=== PATIENT | male | born 1960 | race African-American/Black ===

== ENCOUNTER → 2017-08-08 | Day surgery (SDC) | payer MEDICARE, MEDICAID ==
--- NOTE | 2017-08-08 15:53 | RADIOLOGY REPORT (SQ) ---
EXAM DESCRIPTION: U/S BIOPSY SUPERFIC LYMPH NODE COMPLETED DATE/TIME: 08/08/2017 2:53 pm REASON FOR STUDY: LOCALIZED SWELLING MASS AND LUMP, NECK R22.1 LOCALIZED SWELLING, MASS AND LUMP, N BARAK COMPARISON: Outside CT scan. TECHNIQUE: The procedure was discussed with the patient and the patient agreed to proceed. The patient was scanned and the area of interest in the left cervical soft tissues was localized. Th is correlates with the area of concern on prior imaging studies. This area was targeted for ultrasoun d-guided core biopsy. After sterile skin prep and 10 mL local lidocaine 1% for skin and deep tissue anesthesia, a 20 gauge coaxial biopsy needle was used to obtain several cores of tissue from the lesion. There were no imm ediate post-procedure complications. Pathology is pending LIMITATIONS: None. FINDINGS: Ultrasound-guided biopsy of the solid mass in the left cervical soft tissues. Pathology p ending at this time. IMPRESSION: ULTRASOUND-GUIDED CORE BIOPSY OF THE SOLID MASS IN THE LEFT CERVICAL SOFT TISSUES. PATH OLOGY PENDING AT THIS TIME. COMMENT: Patient medication list reviewed: Yes- Quality ID# [id number]:Eligible professional attests to doc umenting in the medical record they obtained, updated, or reviewed the patient's current medications. TECHNICAL DOCUMENTATION: JOB ID: [id number] [employer]- All Rights Reserved
== END ==
LOC: RAD 13:16
PROVIDERS: ATTEND Internal Medicine Geriatric Medicine
PROC: 07B23ZX Excision of Left Neck Lymphatic, Percutaneous Approach, Diagnostic (ICD-10-PCS; principal; 2017-08-08)
DX: C96.9 Malignant neoplasm of lymphoid, hematopoietic and related tissue, unspecified (principal)
CPT/HCPCS: 38505; 88305; 88313; 88341; 88342

== ENCOUNTER → 2017-08-20 | Outpatient (CLI) | payer MEDICARE, MEDICAID ==
--- NOTE | 2017-08-21 09:10 | RADIOLOGY REPORT (SQ) ---
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 RADIONUCLIDE AND DOSE: 10.9 mCi F18 FDG The route of agent administration: Intravenous FASTING BLOOD SUGAR: 62 mg/dl CONTRAST TYPE AND DOSE: No CT contrast given. TECHNIQUE: Blood glucose level was verified. Above dose of FDG was injected intravenously. 2-D seg mented attenuation correction images were obtained from the base of the skull to the midthighs. Nonc ontrast CT images were obtained for attenuation correction and fusion with emission images. CT image s were performed without oral or intravenous contrast and are not sensitive for parenchymal lesions. A series of overlapping emission PET images were obtained. Images reviewed and manipulated at [facility] work station by the radiologist. Images stored on PACS. LIMITATIONS: None. FINDINGS: HEAD AND NECK: Increased uptake near the left palatini tonsil 19.1 SUV. Subtle asymmetry here but no definable mass on noncontrast CT. Increased uptake 9.6 SUV within ipsilateral level 1 no de. Node measures roughly 1.7 cm in maximum diameter. CHEST: No areas of abnormal metabolic activity in the chest. ABDOMEN AND PELVIS: No areas of abnormal metabolic activity in the abdomen or pelvis. Expected physi ologic activity is present in the genitourinary system and bowel. PROXIMAL LOWER EXTREMITIES: No areas of abnormal metabolic activity in the soft tissues of the lower extremities. BONES: No abnormal metabolic activity in the visualized skeleton. ADDITIONAL CT FINDINGS: Gynecomastia. OTHER: No other significant findings. IMPRESSION: Hypermetabolic left palatini tonsil. Hypermetabolic level 1 ipsilateral node. TECHNICAL DOCUMENTATION: JOB ID: [id number]- All Rights Reserved
== END ==
LOC: RAD 18:03
PROVIDERS: ATTEND Internal Medicine Medical Oncology
DX: C34.90 Malignant neoplasm of unspecified part of unspecified bronchus or lung (principal)
CPT/HCPCS: 78815; A9552

== ENCOUNTER → 2017-08-24 | Outpatient (CLI) | payer MEDICARE, MEDICAID ==
--- NOTE | 2017-08-24 13:32 | RADIOLOGY REPORT (SQ) ---
EXAM DESCRIPTION: MRI ORBIT/FACIAL/NECK COMBO COMPLETED DATE/TIME: 08/24/2017 9:32 am REASON FOR STUDY: LOCALIZED SWELLING MASS AND LUMP (R22.0) R22.0 LOCALIZED SWELLING, MASS AND LUMP, HEAD COMPARISON: PET-CT 08/20/2017 CT cervical spine 03/20/2015 CT brain 03/20/2015 TECHNIQUE: Multiplanar multisequence imaging of the soft tissues of the neck performed without and w ith contrast. All images stored on PACS. MRI network applications specialist was present today, an additional MRA of the carotid bifurcations was perf ormed with the contrast bolus, at no additional charge. Source data and maximum intensity projected images for cervical MRA reviewed. CONTRAST TYPE AND DOSE: 20 mL Prohance. RENAL FUNCTION: GFR > 60. LIMITATIONS: None. FINDINGS: SKULL BASE: Intact. MAJOR SALIVARY GLANDS: No solid or cystic masses. No inflammatory changes. LYMPHADENOPATHY: A 2.8 cm AP x 1.5 cm transverse x 4.3 cm craniocaudad lymph node is present with het erogeneous contrast enhancement. This lymph node is in the left neck at the level of the mandibular angle, superficial to the internal carotid artery and internal jugular vein. This correlates with th e lymph node described on PET-CT 08/20/2017. MUCOSAL MASSES OR ASYMMETRY: On the T1 post contrasted images and T2 images, asymmetric abnormal thic kening of the mucosal space, along the superior aspect left pharyngeal tonsil is present. This invol ves a 3 cm craniocaudad by 2.2 cm AP by 0.7 cm transverse area, best shown on coronal T1 postcontrast series 12 image 8, and axial T2 images 11-14. This does extend into the lateral aspect of the soft palate. LARYNX/CORDS: No abnormal findings. VASCULAR STRUCTURES: MRI applications Specialists was present today. The contrast bolus for the rout ine T1 post contrasted images was processed as a MRA exam of the carotid bifurcations. This demonstr ates focal stenosis proximal right ICA at the carotid bifurcation causing about 50% diameter stenosis of the proximal right ICA. Left carotid bifurcation, bilateral cervical vertebral arteries are unre markable. Limited view of the [place] is unremarkable. LUNG APICES: Clear. BONES: There is diffuse degenerative disc change with posterior disc bulging and bony spurring causin g mild central canal narrowing at C5-6. THYROID: Normal size. No masses. PARANASAL SINUSES: Clear. OTHER: No other significant finding. IMPRESSION: Left tonsillar fossa asymmetric mucous membrane thickening and enhancement worrisome for primary mucosal tumor. This appears to extend into the lateral edge of the soft palate. This corre lates with PET-CT 08/20/2017. Heterogeneously enhancing 4.3 x 2.8 x 1.5 cm left upper cervical lymph node correlates with hypermeta bolic lymph node on PET-CT 08/20/2017. TECHNICAL DOCUMENTATION: JOB ID: [id number] [employer]- All Rights Reserved
== END ==
LOC: RAD 08:18
PROVIDERS: ATTEND Internal Medicine Medical Oncology
DX: R22.0 Localized swelling, mass and lump, head (principal)
CPT/HCPCS: 70543; A9576

== ENCOUNTER 2017-08-28 09:42 | Inpatient (IN) | payer MEDICARE, MEDICAID ==
--- NOTE | 2017-08-28 10:02 | ER Document Report ---
ED Seizure - General Chief Complaint: Probable Seizure Stated Complaint: POSSIBLE SEIZURE Time Seen by Provider: 08/28/17 10:02 Information source: Friend Notes: This is a 57-year-old -[place] male brought to the emergency department by POV for evaluation of possible seizure. Apparently patient has a hospice care transitions coordinator that comes and visits with him. Reported history of diabetes, HIV, alcoholism. Caregiver states that he decided to stop drinking approximately 3 days ago. Had a seizure this morning. The caregiver called the primary care doctor and wanted to get an appointment but the primary care clinic said it would probably be a good idea to go to the emergency department. Patient was loaded in the car after the seizure but the emergency department for evaluation. Shortly after arrival to the emergency department patient has seizure. Patient now postictal. Unable to complete review of systems at this time. - HPI Patient complains to provider of: First seizure - Unknown history of prior seizures - Related Data Allergies/Adverse Reactions: olive extract [[place]] Allergy (Verified 10/28/15 09:47) Past Medical History - General Information source: Friend - Social History Smoking Status: Former Smoker Frequency of alcohol use: Heavy - Reportedly drinks 3 40 ounces beers a day Family History: Reviewed & Not Pertinent Patient has suicidal ideation: No Patient has homicidal ideation: No - Past Medical History Cardiac Medical History: Reports: Hx Coronary Artery Disease, Hx Hypercholesterolemia, Hx Hypertension Denies: Hx Heart Attack Pulmonary Medical History: Reports: Hx Asthma Denies: Hx Tuberculosis Neurological Medical History: Reports: Hx Seizures - about a month ago/LOW BS. Denies: Hx Cerebrovascular Accident Endocrine Medical History: Reports: Hx Diabetes Mellitus Type 2 Renal/ Medical History: Denies: Hx Peritoneal Dialysis GI Medical History: Reports: Hx Hepatitis - HEP C,HIV+. Denies: Hx Hiatal Hernia, Hx Ulcer Musculoskeltal Medical History: Reports Hx Arthritis Infectious Medical History: Reports: Hx Hepatitis - HEP C,HIV+, Hx HIV Past Surgical History: Reports: Hx Cardiac Catheterization, Hx Cardiac Surgery - stent placement, Hx Coronary Stent, Hx Orthopedic Surgery - lumbar surgery. Denies: Hx Open Heart Surgery, Hx Pacemaker - Immunizations Hx Diphtheria, Pertussis, Tetanus Vaccination: Yes - one year per pt. Review of Systems - Review of Systems -: Yes ROS unobtainable due to patient's medical condition - Unable to obtain due to patient's postictal status Physical Exam - Vital signs Vitals: Temp Pulse Resp BP Pulse Ox 98.5 F 124 H 20 114/67 98 08/28/17 09:48 08/28/17 09:48 08/28/17 09:48 08/28/17 09:48 08/28/17 09:48 Interpretation: Normal, Tachycardic - Notes Notes: Patient obviously postictal at this time. - General General appearance: Appears well, Alert, Combative In distress: Moderate - HEENT Head: Normocephalic, Atraumatic Eyes: Normal Conjunctiva: Normal Cornea: Normal Extraocular movements intact: Yes Pupils: PERRL Mouth/Lips: Other - Small abrasion on bilateral lateral tongue - Respiratory Respiratory status: No respiratory distress Chest status: Nontender Breath sounds: Normal Chest palpation: Normal - Cardiovascular Rhythm: Regular, Tachycardia Heart sounds: Normal auscultation Murmur: No - Abdominal Inspection: Normal Distension: No distension Bowel sounds: Normal Tenderness: Nontender Organomegaly: No organomegaly - Back Back: Normal, Nontender - Extremities General upper extremity: Normal inspection, Nontender, Normal color, Normal ROM , Normal temperature General lower extremity: Normal inspection, Nontender, Normal color, Normal ROM , Normal temperature, Normal weight bearing. No: Gualberto's sign - Neurological Neuro grossly intact: Yes Cognition: Normal Orientation: AAOx4, Disoriented to person, Disoriented to place, Disoriented to time, Disoriented to events [place] Coma Scale Eye Opening: Spontaneous [place] Coma Scale Verbal: Confused [place] Coma Scale Motor: Obeys Commands [place] Coma Scale Total: 14 Speech: Normal Motor strength normal: LUE, RUE, LLE, RLE Sensory: Normal - Psychological Associated symptoms: Normal affect, Normal mood, Agitated - Skin Skin Temperature: Warm Skin Moisture: Dry Skin Color: Normal Course - Re-evaluation Re-evalutation: 08/28/17 11:32 Consulted the hospitalist for admission. Spoke with Dr. Lane. Will get MRI with contrast to rule out any ring-enhancing lesion is consistent with possible toxoplasmosis which would obviously be treated quite differently than alcohol withdrawal seizures. At this time though I favor this is likely due to alcohol withdrawal. Patient is resting comfortably at this time. Fluids is given have been given as well. If MRI is unremarkable will admit to the hospital at this time 08/28/17 13:44 MRI unremarkable. Will admit at this time. - Vital Signs Vital signs: Temp Pulse Resp BP Pulse Ox 98.5 F 124 H 19 103/72 97 08/28/17 09:48 08/28/17 09:48 08/28/17 11:46 08/28/17 11:46 08/28/17 11:46 - Laboratory Result Diagrams: 08/28/17 10:30 08/28/17 10:30 Laboratory results interpreted by me: 08/28/17 08/28/17 08/28/17 10:13 10:30 10:30 RBC 4.11 L MCV 98 H Seg Neutrophils % 39.1 L Monocytes % 17.3 H Carbon Dioxide 14 L Anion Gap 26 H Glucose 208 H POC Glucose 198 H Direct Bilirubin 0.7 H AST 121 H ALT 124 H Alkaline Phosphatase 136 H Total Protein 8.8 H - Diagnostic Test Radiology reviewed: Reports reviewed - CT head unremarkable for acute pathology Radiology results interpreted by me: 08/28/17 13:44 MRI brain unremarkable for acute pathology, CT head unremarkable - EKG Interpretation by Me EKG shows normal: [place], Intervals, QRS Complexes Rate: Tachycardia - Sinus tachycardia When compared to previous EKG there are: Previous EKG unavailable Discharge - Discharge Clinical Impression: Seizures, generalized convulsive
[2017-08-28] MEDS ORDERED: LORAZEPAM INJ 2 MG/1 ML VIAL IM ONE (10:20)
[2017-08-28] MEDS ORDERED: LORAZEPAM INJ 2 MG/1 ML VIAL IV ONE (10:26)
[2017-08-28 10:44] LABS: ABSOLUTE EOSINOPHILS # (AUTO) 0.2 10^3/uL (0.0-0.6); ABSOLUTE LYMPHOCYTES (AUTO) 2.1 10^3/uL (0.5-4.7); ABSOLUTE MONOCYTES (AUTO) 0.9 10^3/uL (0.1-1.4); BASOPHILS % (AUTO) 0.7 % (0-2); EOSINOPHILS % (AUTO) 3.1 % (0-6); HEMATOCRIT 40.3 % (37.9-51.0); HEMOGLOBIN 13.5 g/dL (13.5-17.0); HGB HCT DIFFERENCE 0.2; LYMPHOCYTES % (AUTO) 39.8 % (13-45); MEAN CORPUSCULAR HEMOGLOBIN 32.8 pg (27.0-33.4); MEAN CORPUSCULAR HGB CONC 33.4 g/dL (32.0-36.0); MEAN CORPUSCULAR VOLUME 98 fl (80-97); MONOCYTES % (AUTO) 17.3 % (3-13); RED BLOOD COUNT 4.11 10^6/uL (4.35-5.55); RED CELL DISTRIBUTION WIDTH 13.8 % (11.5-14.0); SEGMENTED NEUTROPHILS % (AUTO) 39.1 % (42-78); WHITE BLOOD COUNT 5.2 10^3/uL (4.0-10.5)
--- NOTE | 2017-08-28 10:59 | RADIOLOGY REPORT (SQ) ---
EXAM DESCRIPTION: CT HEAD WITHOUT COMPLETED DATE/TIME: 08/28/2017 10:48 am REASON FOR STUDY: new onset seizure COMPARISON: None. TECHNIQUE: Axial images acquired through the brain without intravenous contrast. Images reviewed wi th bone, brain and subdural windows. Images stored on PACS. All CT scanners at this facility use dose modulation, iterative reconstruction, and/or weight based d osing when appropriate to reduce radiation dose to as low as reasonably achievable (ALARA). [facility]: Dose Right [facility]: CareDose [facility]: Dose Right [facility]: Teradose 4D [facility]: Smart Delphix RADIATION DOSE: Up-to-date CT equipment and radiation dose reduction techniques were employed. CTDIv ol: 64.6 mGy. DLP: 1163 mGy-cm. mGy. LIMITATIONS: None. FINDINGS: VENTRICLES: Prominent ventricles secondary to involutional atrophy. CEREBRUM: No masses. No hemorrhage. No midline shift. No evidence for acute infarction. 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 Normal childs/white matter differentiation. No areas of low density in the white matter. There is mild cortical atrophy. CEREBELLUM: No masses. No hemorrhage. No alteration of density. No evidence for acute infarction. EXTRAAXIAL SPACES: No fluid collections. No masses. ORBITS AND GLOBE: No intra- or extraconal masses. Normal contour of globe without masses. CALVARIUM: No fracture. PARANASAL SINUSES: No fluid or mucosal thickening. SOFT TISSUES: No mass or hematoma. OTHER: No other significant finding. IMPRESSION: There are mild involutional changes of aging with an old right posterior parietal infarc tion. No acute abnormality is appreciated. EVIDENCE OF ACUTE STROKE: NO. COMMENT: Quality ID # [id number]: Final reports with documentation of one or more dose reduction techniques (e.g., Automated exposure control, adjustment of the mA and/or kV according to patient size, use of iterative reconstruction technique) TECHNICAL DOCUMENTATION: JOB ID: [id number] [employer]- All Rights Reserved
[2017-08-28 11:07] LABS: ALANINE AMINOTRANSFERASE 124 U/L (21-72); ALKALINE PHOSPHATASE 136 U/L (38-126); ASPARTATE AMINO TRANSFERASE 121 U/L (17-59); BILIRUBIN,DIRECT 0.7 mg/dL (0.0-0.4); BILIRUBIN,TOTAL 0.9 mg/dL (0.2-1.3); BLOOD UREA NITROGEN 10 mg/dL (7-20); CALCIUM 10.2 mg/dL (8.4-10.2); CREATINE KINASE 75 U/L (55-170); GLUCOSE 208 mg/dL (75-110); TOTAL PROTEIN 8.8 g/dL (6.3-8.2)
[2017-08-28 11:15] LABS: CARBON DIOXIDE 14 mmol/L (22-30); CHLORIDE 99 mmol/L (98-107); POTASSIUM 4.2 mmol/L (3.6-5.0); SODIUM 138.5 mmol/L (137-145)
[2017-08-28 11:17] LABS: ALCOHOL < 10 mg/dL (NONE DETECTED); ANION GAP 26 (5-19)
[2017-08-28] MEDS ORDERED: NORMAL SALINE 1000 ML 1,000 ML IV ONE (11:22)
[2017-08-28] MEDS ORDERED: THIAMINE HCL 100 MG in NORMAL SALINE 50 ML IV ONE (11:44)
--- NOTE | 2017-08-28 13:23 | EKG REPORT ---
SEVERITY:- BORDERLINE ECG - SINUS TACHYCARDIA : Confirmed by: Neel Burk MD 28-Aug-2017 13:22:31
--- NOTE | 2017-08-28 13:37 | RADIOLOGY REPORT (SQ) ---
EXAM DESCRIPTION: MRI HEAD COMBO COMPLETED DATE/TIME: 08/28/2017 1:17 pm REASON FOR STUDY: altered seizure, hx of HIV, COMPARISON: PET-CT 08/20/2017 MRI neck soft tissues 08/24/2017 CT brain 08/28/2017, 03/20/2015 TECHNIQUE: Multiplanar imaging includes noncontrasted T1, T2, FLAIR, diffusion with ADC map and post gadolinium contrast T1 sequences. Images stored on PACS. CONTRAST TYPE AND DOSE: 15 mL Multihance. RENAL FUNCTION: GFR > 60. LIMITATIONS: None. FINDINGS: ANATOMY: No developmental anomalies. Normal vascular flow voids. Pituitary fossa normal. CSF SPACES: Normal in size and contour. No hemorrhage. 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 No MR evidence of acute ischemic change, acute intracranial hemorrhage, mass effect, or midline shift . No abnormal contrast enhancement. POSTERIOR FOSSA: Moderate pontine chronic small vessel disease. Old infarcts in the right and left i nferior cerebellar hemispheres. No acute ischemic change, acute intracranial hemorrhage, mass effect , or midline shift. No abnormal contrast enhancement. DIFFUSION IMAGING: Negative for acute or subacute infarction. ORBITS: No masses. Globes normal. PARANASAL SINUSES: No fluid levels. Mucosa normal. OTHER: No other significant finding. IMPRESSION: No acute infarcts. No abnormal contrast enhancement of brain parenchyma or dura. Multiple old infarcts as above. EVIDENCE OF ACUTE STROKE: NO. TECHNICAL DOCUMENTATION: JOB ID: [id number] [employer]- All Rights Reserved
[2017-08-28] MEDS ORDERED: ONDANSETRON 4 MG TAB.RAPDIS PO PRN (14:27)
[2017-08-28] MEDS ORDERED: ACETAMINOPHEN 325 MG TABLET PO PRN (14:27)
[2017-08-28] MEDS ORDERED: LORAZEPAM INJ 2 MG/1 ML VIAL IV PRN (14:33)
[2017-08-28] MEDS ORDERED: NORMAL SALINE 1000 ML 1,000 ML IV PRN (14:43)
[2017-08-28] MEDS ORDERED: HYDROCODONE/ACETAMINOPHEN 5-325 MG TABLET PO PRN (14:44)
--- NOTE | 2017-08-28 14:59 | PDOC H&P ---
History of Present Illness Admission Date/PCP: 08/28/17 14:20 Patient complains of: Seizures History of Present Illness: RAE MONTEMAYOR is a 57 year old male sent to the emergency room with complaint of seizures. Patient states that seizures started last night. Patient states that his neighbor witnessed the seizure activity. Neighbor was not present to describe the type of seizures that patient was having. Patient reports that he stopped drinking alcohol last Monday. Patient reports that he has had seizures in the past. Patient states that he was not placed on any medicines for seizures. Patient denies chest pain shortness of breath or fever. Patient is only person at present to give history. Patient does not does not have any other complaints. Past Medical History Cardiac Medical History: Reports: Coronary Artery Disease, Hyperlipidema, Hypertension Denies: Myocardial Infarction Pulmonary Medical History: Reports: Asthma Denies: Tuberculosis Neurological Medical History: Reports: Seizures - about a month ago/LOW BS Endocrine Medical History: Reports: Diabetes Mellitus Type 2 GI Medical History: Reports: Hepatitis - HEP C,HIV+ Denies: Hiatal Hernia Musculoskeltal Medical History: Reports: Arthritis Hematology: Denies: Anemia, Sickle Cell Disease Infectious Medical History: Reports: HIV Past Surgical History Past Surgical History: Reports: Cardiac Catheterization, Coronary Stent, Orthopedic Surgery - lumbar surgery Denies: Pacemaker Social History Smoking Status: Former Smoker Hx Recreational Drug Use: No Hx Prescription Drug Abuse: No Family History Family History: Reviewed & Not Pertinent Parental Family History Reviewed: Yes Children Family History Reviewed: Yes Sibling(s) Family History Reviewed.: Yes Medication/Allergy Home Medications: Amlodipine Besylate [Norvasc 10 mg Tablet] 10 mg PO DAILY 08/28/17 Ascorbic Acid [Vitamin C 500 mg Tablet] 500 mg PO DAILY 08/28/17 Aspirin [Aspirin 81 mg Chewable Tablet] 81 mg PO DAILY 08/28/17 Atorvastatin Calcium [Lipitor 10 mg Tablet] 10 mg PO DAILY 08/28/17 Darunavir Ethanolate [Prezista] 600 mg PO BID 08/28/17 Etravirine [[place]el[place]] 200 mg PO BID 08/28/17 Gabapentin [Neurontin] 800 mg PO BID 08/28/17 Glimepiride [Amaryl 4 mg Tablet] 4 mg PO QAM 08/28/17 Hydrocodone/Acetaminophen [[place] 5-325 mg Tablet] 1 tab PO Q4HP PRN 08/28/17 Levocetirizine Dihydrochloride [Xyzal] 5 mg PO DAILY 08/28/17 Metformin HCl [Glucophage] 1,000 mg PO BIDBS 08/28/17 Metoprolol Succinate [Toprol XL 100 mg Tablet] 150 mg PO DAILY 08/28/17 Nitroglycerin [Nitrostat 0.4 mg (1/150 Gr) Tabs 25/Bottle] 1 tab SL Q5MP PRN 08/06 Paroxetine HCl [Paxil 20 mg Tablet] 20 mg PO DAILY 08/28/17 Raltegravir Potassium [Isentress 400 mg Tablet] 400 mg PO BID 08/28/17 Ritonavir [Norvir 100 mg Tablet] 100 mg PO BID 08/28/17 Valsartan [Diovan] 320 mg PO DAILY 08/28/17 Allergies/Adverse Reactions: olive extract [[place]] Allergy (Verified 10/28/15 09:47) Review of Systems Constitutional: ABSENT: chills, fever(s), headache(s), weight gain, weight loss Eyes: ABSENT: visual disturbances Ears: ABSENT: hearing changes Cardiovascular: ABSENT: chest pain, dyspnea on exertion, edema, orthropnea, palpitations Respiratory: ABSENT: cough, hemoptysis Gastrointestinal: ABSENT: abdominal pain, constipation, diarrhea, hematemesis, hematochezia, nausea, vomiting Genitourinary: ABSENT: dysuria, hematuria Musculoskeletal: ABSENT: joint swelling Integumentary: ABSENT: rash, wounds Neurological: PRESENT: other - Seizure activity Psychiatric: ABSENT: anxiety, depression, homidical ideation, suicidal ideation Endocrine: ABSENT: cold intolerance, heat intolerance, polydipsia, polyuria Hematologic/Lymphatic: ABSENT: easy bleeding, easy bruising Physical Exam Vital Signs: Temp Pulse Resp BP Pulse Ox 98.5 F 124 H 19 103/72 97 08/28/17 09:48 08/28/17 09:48 08/28/17 11:46 08/28/17 11:46 08/28/17 11:46 General appearance: PRESENT: no acute distress, thin - Appears older than stated age, appears in no acute distress Head exam: PRESENT: atraumatic, normocephalic Eye exam: PRESENT: conjunctiva pink, EOMI. ABSENT: scleral icterus Ear exam: PRESENT: normal external ear exam Mouth exam: PRESENT: moist, tongue midline Neck exam: ABSENT: carotid bruit, JVD, lymphadenopathy, thyromegaly Respiratory exam: PRESENT: clear to auscultation melba. ABSENT: rales, rhonchi, wheezes Cardiovascular exam: PRESENT: RRR. ABSENT: diastolic murmur, rubs, systolic murmur Pulses: PRESENT: normal dorsalis pedis pul Vascular exam: PRESENT: normal capillary refill GI/Abdominal exam: PRESENT: normal bowel sounds, soft. ABSENT: distended, guarding, mass, organolmegaly, rebound, tenderness Rectal exam: PRESENT: deferred Extremities exam: PRESENT: full ROM. ABSENT: calf tenderness, clubbing, pedal edema Neurological exam: PRESENT: alert, awake, oriented to person, oriented to place , oriented to time, oriented to situation, CN II-XII grossly intact. ABSENT: motor sensory deficit Psychiatric exam: PRESENT: appropriate affect, normal mood. ABSENT: homicidal ideation, suicidal ideation Skin exam: PRESENT: dry, intact, warm. 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 No acute abnormality is appreciated. EVIDENCE OF ACUTE STROKE: NO. Head MRI 08/28/17 11:30 IMPRESSION: No acute infarcts. No abnormal contrast enhancement of brain parenchyma or dura. Multiple old infarcts as above. EVIDENCE OF ACUTE STROKE: NO. Assessment & Plan - Diagnosis (1) Seizures, generalized convulsive Is this a current diagnosis for this admission?: Yes Plan: We will give patient loading dose of Keppra thousand milligrams. Will place patient on Keppra thousand milligrams IV every 12 hours. If patient remains seizure-free would place patient on 500 mg of Keppra twice a day. Patient had MRI of brain to evaluate for any possible etiologies that could cause seizures such as toxo. Patient's MRI demonstrated no abnormalities. Will place patient on Ativan for seizure activity as needed. Seizure activity most likely secondary to EtOH withdrawal. Will obtain EEG. Will consult neurology when neurology is on service.. (2) ETOH abuse Is this a current diagnosis for this admission?: Yes Plan: Will give banana bag. Will place on scheduled Ativan. Will have patient assess for EtOH withdrawal. Patient did receive multivitamins in the emergency department. Patient's seizure activity is most likely secondary to EtOH withdrawal. (3) HIV (human immunodeficiency virus infection) Is this a current diagnosis for this admission?: Yes Plan: We will continue patient's home medications. (4) Hypotension Is this a current diagnosis for this admission?: Yes Plan: We will hold patient's valsartan. We will continue patient's other medications. (5) Hypertension Is this a current diagnosis for this admission?: Yes Plan: Continue patient's other home medications for blood pressure control with the exception of valsartan 320 mg p.o. daily. Once patient's blood pressure is improved would recommend restarting medication. (6) Hyperlipidemia Is this a current diagnosis for this admission?: Yes Plan: Continue statin (7) Chronic pain Is this a current diagnosis for this admission?: Yes Plan: Continue patient's current pain medication regimen (8) DVT prophylaxis Is this a current diagnosis for this admission?: Yes Plan: SCDS - Time Time Spent: 30 to 50 Minutes Anticipated discharge: Home
[2017-08-28 15:55] LABS: MAGNESIUM 1.9 mg/dL (1.6-2.3)
[2017-08-28] MEDS ORDERED: ASCORBIC ACID 500 MG TABLET PO ONE (16:00)
[2017-08-28] MEDS ORDERED: CETIRIZINE 5 MG TABLET PO ONE (16:00)
[2017-08-28] MEDS ORDERED: LEVETIRACETAM 1000 MG/NACL-ISO 1,000 MG/100 ML RTUPB IV ONE ×2 (16:00→19:45)
[2017-08-28] MEDS ORDERED: PAROXETINE HCL 20 MG TABLET PO ONE (16:00)
[2017-08-28] MEDS ORDERED: LANSOPRAZOLE 30 MG TAB.RAP.DR PO ONE (16:00)
[2017-08-28] MEDS ORDERED: ASPIRIN 81 MG TABLET, CHEWABLE PO ONE (16:00)
[2017-08-28] MEDS ORDERED: METOPROLOL SUCCINATE 50 MG TAB.SR.24H PO ONE (16:00)
[2017-08-28 17:01] LABS: FOLATE 18.3 ng/mL (>2.76)
[2017-08-28] MEDS ORDERED: INFLUENZA ADLT QUAD (36MOS+) 2017-18 VAC 0.5 ML SYR IM PRN (17:11)
[2017-08-28] MEDS ORDERED: NORMAL SALINE 1000 ML 1,000 ML with POTASSIUM CHLORIDE 20 MEQ, MAGNESIUM SULFATE 8 MEQ,... IV SCH ×5 (18:00)
[2017-08-28] MEDS ORDERED: RALTEGRAVIR POTASSIUM 400 MG TABLET PO SCH (18:00)
[2017-08-28] MEDS ORDERED: DARUNAVIR ETHANOLATE 600 MG PO SCH (18:00)
[2017-08-28] MEDS ORDERED: (PENDING PHARMACY ID) (Etravirine [Intelence] 200 MG) PO SCH (18:00)
[2017-08-28] MEDS: DOCUSATE SODIUM 100 MG CAPSULE PO SCH (18:20)
[2017-08-28] MEDS: RITONAVIR 100 MG TABLET PO SCH (18:32)
[2017-08-28] MEDS: LORAZEPAM 1 MG TABLET PO SCH (22:41)
[2017-08-28] MEDS: GABAPENTIN 400 MG CAPSULE PO SCH (22:41)
[2017-08-29] MEDS: LORAZEPAM 1 MG TABLET PO SCH ×2 (05:34→13:59)
[2017-08-29 05:47] LABS: ABSOLUTE EOSINOPHILS # (AUTO) 0.2 10^3/uL (0.0-0.6); ABSOLUTE LYMPHOCYTES (AUTO) 1.1 10^3/uL (0.5-4.7); ABSOLUTE MONOCYTES (AUTO) 0.5 10^3/uL (0.1-1.4); ABSOLUTE NEUT (AUTO) 1.5 10^3/uL (1.7-8.2); BASOPHILS % (AUTO) 0.4 % (0-2); EOSINOPHILS % (AUTO) 5.3 % (0-6); HEMATOCRIT 37.5 % (37.9-51.0); HEMOGLOBIN 12.6 g/dL (13.5-17.0); HGB HCT DIFFERENCE 0.3; LYMPHOCYTES % (AUTO) 33.9 % (13-45); MEAN CORPUSCULAR HEMOGLOBIN 32.1 pg (27.0-33.4); MEAN CORPUSCULAR HGB CONC 33.5 g/dL (32.0-36.0); MEAN CORPUSCULAR VOLUME 96 fl (80-97); MONOCYTES % (AUTO) 15.8 % (3-13); RED BLOOD COUNT 3.92 10^6/uL (4.35-5.55); RED CELL DISTRIBUTION WIDTH 13.7 % (11.5-14.0); SEGMENTED NEUTROPHILS % (AUTO) 44.6 % (42-78); WHITE BLOOD COUNT 3.3 10^3/uL (4.0-10.5)
[2017-08-29 05:54] LABS: ALANINE AMINOTRANSFERASE 105 U/L (21-72); ALKALINE PHOSPHATASE 68 U/L (38-126); ANION GAP 11 (5-19); ASPARTATE AMINO TRANSFERASE 98 U/L (17-59); BILIRUBIN,DIRECT 0.6 mg/dL (0.0-0.4); BILIRUBIN,TOTAL 0.9 mg/dL (0.2-1.3); BLOOD UREA NITROGEN 8 mg/dL (7-20); CALCIUM 9.4 mg/dL (8.4-10.2); CARBON DIOXIDE 21 mmol/L (22-30); CHLORIDE 107 mmol/L (98-107); CREATININE RESULT 0.64 mg/dL (0.52-1.25); GLUCOSE 59 mg/dL (75-110); POTASSIUM 4.9 mmol/L (3.6-5.0); SODIUM 138.6 mmol/L (137-145); TOTAL PROTEIN 7.3 g/dL (6.3-8.2)
[2017-08-29] MEDS ORDERED: LANSOPRAZOLE 30 MG TAB.RAP.DR PO SCH (06:00)
[2017-08-29] MEDS ORDERED: LEVETIRACETAM 1000 MG/NACL-ISO 1,000 MG/100 ML RTUPB IV SCH (06:00)
[2017-08-29] MEDS ORDERED: ASCORBIC ACID 500 MG TABLET PO SCH (10:00)
[2017-08-29] MEDS ORDERED: ASPIRIN 81 MG TABLET, CHEWABLE PO SCH (10:00)
[2017-08-29] MEDS ORDERED: METOPROLOL SUCCINATE 50 MG TAB.SR.24H PO SCH (10:00)
[2017-08-29] MEDS ORDERED: CETIRIZINE 5 MG TABLET PO SCH (10:00)
[2017-08-29] MEDS ORDERED: (PENDING PHARMACY ID) (Metoprolol Succinate [Toprol Xl 100 Mg Tablet] 150 MG) PO SCH (10:00)
[2017-08-29] MEDS ORDERED: PAROXETINE HCL 20 MG TABLET PO SCH (10:00)
[2017-08-29] MEDS ORDERED: ATORVASTATIN CALCIUM 10 MG TABLET PO SCH (10:00)
[2017-08-29] MEDS: DOCUSATE SODIUM 100 MG CAPSULE PO SCH (11:12)
[2017-08-29] MEDS: GABAPENTIN 400 MG CAPSULE PO SCH (11:14)
[2017-08-29] MEDS: RITONAVIR 100 MG TABLET PO SCH (11:15)
[2017-08-29 13:26] VITALS: BP 121/58
--- NOTE | 2017-08-29 15:53 | PDOC DISCHARGE SUMMARY ---
General - Admit/Disc Date/PCP Admission Date/Primary Care Provider: 08/28/17 14:19 Discharge Date: 08/29/17 - Discharge Diagnosis (1) Seizures, generalized convulsive Is this a current diagnosis for this admission?: Yes (2) Chronic pain Is this a current diagnosis for this admission?: Yes (3) DVT prophylaxis Is this a current diagnosis for this admission?: Yes (4) ETOH abuse Is this a current diagnosis for this admission?: Yes (5) HIV (human immunodeficiency virus infection) Is this a current diagnosis for this admission?: Yes (6) Hyperlipidemia Is this a current diagnosis for this admission?: Yes (7) Hypertension Is this a current diagnosis for this admission?: Yes (8) Hypotension Is this a current diagnosis for this admission?: Yes - Additional Information Resuscitation Status: Full Code Discharge Diet: As Tolerated Discharge Activity: Activity As Tolerated, No Driving, No tub bath Home Medications: Amlodipine Besylate [Norvasc 10 mg Tablet] 10 mg PO DAILY 08/28/17 Ascorbic Acid [Vitamin C 500 mg Tablet] 500 mg PO DAILY 08/28/17 Aspirin [Aspirin 81 mg Chewable Tablet] 81 mg PO DAILY 08/28/17 Atorvastatin Calcium [Lipitor 10 mg Tablet] 10 mg PO DAILY 08/28/17 Darunavir Ethanolate [Prezista] 600 mg PO BID 08/28/17 Etravirine [Intelence] 200 mg PO BID 08/28/17 Gabapentin [Neurontin] 800 mg PO BID 08/28/17 Glimepiride [Amaryl 4 mg Tablet] 4 mg PO QAM 08/28/17 Hydrocodone/Acetaminophen [[place] 5-325 mg Tablet] 1 tab PO Q4HP PRN 08/28/17 Levocetirizine Dihydrochloride [Xyzal] 5 mg PO DAILY 08/28/17 Metformin HCl [Glucophage] 1,000 mg PO BIDBS 08/28/17 Metoprolol Succinate [Toprol XL 100 mg Tablet] 150 mg PO DAILY 08/28/17 Nitroglycerin [Nitrostat 0.4 mg (1/150 Gr) Tabs 25/Bottle] 1 tab SL Q5MP PRN 08/06 Paroxetine HCl [Paxil 20 mg Tablet] 20 mg PO DAILY 08/28/17 Raltegravir Potassium [Isentress 400 mg Tablet] 400 mg PO BID 08/28/17 Ritonavir [Norvir 100 mg Tablet] 100 mg PO BID 08/28/17 Valsartan [Diovan] 320 mg PO DAILY 08/28/17 Levetiracetam [Keppra 500 mg Tablet] 500 mg PO Q12 #60 tablet 08/29/17 History of Present Illness History of Present Illness: History of Present Illness: RAE MONTEMAYOR is a 57 year old male sent to the emergency room with complaint of seizures. Patient states that seizures started last night. Patient states that his neighbor witnessed the seizure activity. Neighbor was not present to describe the type of seizures that patient was having. Patient reports that he stopped drinking alcohol last Monday. Patient reports that he has had seizures in the past. Patient states that he was not placed on any medicines for seizures. Patient denies chest pain shortness of breath or fever. Patient is only person at present to give history. Patient does not does not have any other complaints. Hospital Course Hospital Course: (1) Seizures, generalized convulsive Has seizure activity most likely due to ethanol withdrawal. Patient was given a loading dose of Keppra 1000 mg. She was placed on 1000 mg IV twice daily. Then transition to oral Keppra 500 mg twice a day. Patient did not show any seizure activity overnight and was insisting that he leave. Patient was discharged on Keppra to start 500 mg tonight. Patient has a scheduled appointment with neurology for further evaluation. Patient's MRI was negative for any abnormality EEG was ordered. Patient advised not to drive or take baths and large bodies of water at least for the next 6 months. (2) ETOH abuse Patient was given Ativan and banana bag. Patient is not showing any clear signs of withdrawal. (3) HIV (human immunodeficiency virus infection) He was continued on his home medications. (4) Hypotension Patient was hypotensive initially at which time his blood pressure medications were held. (5) Hypertension She was continued on his Norvasc however the valsartan was held. Valsartan will be resumed on discharge. (6) Hyperlipidemia Continue statin (7) Chronic pain Continue patient's current pain medication regimen (8) DVT prophylaxis SCDS for DVT prophylaxis Physical Exam Vital Signs: Temp Pulse Resp BP Pulse Ox 98.0 F 73 18 136/84 H 99 08/29/17 07:44 08/29/17 07:44 08/29/17 07:44 08/29/17 07:44 08/29/17 07:44 Intake & Output 08/28/17 08/29/17 08/30/17 06:59 06:59 06:59 Intake Total 2049 Output Total 150 Balance 1900 Weight 75.9 kg General appearance: PRESENT: no acute distress, disheveled, thin Head exam: PRESENT: normocephalic Eye exam: PRESENT: EOMI Teeth exam: PRESENT: other - Missing dentition Neck exam: PRESENT: full ROM. ABSENT: JVD Respiratory exam: PRESENT: clear to auscultation melba, unlabored. ABSENT: wheezes Cardiovascular exam: PRESENT: RRR, +S1, +S2 GI/Abdominal exam: PRESENT: normal bowel sounds, soft. ABSENT: tenderness Rectal exam: PRESENT: deferred Extremities exam: PRESENT: full ROM. ABSENT: pedal edema, tenderness Musculoskeletal exam: PRESENT: full ROM. ABSENT: tenderness Neurological exam: PRESENT: alert, awake, oriented to person, oriented to place , oriented to time, oriented to situation, reflexes normal, CN II-XII grossly intact Psychiatric exam: PRESENT: normal mood Skin exam: PRESENT: intact, warm Results Laboratory Results: 08/29/17 05:25 08/29/17 05:25 08/29/17 08/29/17 05:25 05:25 WBC 3.3 L RBC 3.92 L Hgb 12.6 L Hct 37.5 L MCV 96 MCH 32.1 MCHC 33.5 RDW 13.7 Plt Count 170 Seg Neutrophils % 44.6 Lymphocytes % 33.9 Monocytes % 15.8 H Eosinophils % 5.3 Basophils % 0.4 Absolute Neutrophils 1.5 L Absolute Lymphocytes 1.1 Absolute Monocytes 0.5 Absolute Eosinophils 0.2 Absolute Basophils 0.0 Sodium 138.6 Potassium 4.9 Chloride 107 Carbon Dioxide 21 L Anion Gap 11 BUN 8 Creatinine 0.64 Est GFR ( Amer) > 60 Est GFR (Non-Af Amer) > 60 Glucose 59 L Calcium 9.4 Total Bilirubin 0.9 AST 98 H ALT 105 H Alkaline Phosphatase 68 Total Protein 7.3 Albumin 4.0 Impressions: Head CT 08/28/17 10:20 IMPRESSION: There are mild involutional changes of aging with 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 No acute abnormality is appreciated. EVIDENCE OF ACUTE STROKE: NO. Head MRI 08/28/17 11:30 IMPRESSION: No acute infarcts. No abnormal contrast enhancement of brain parenchyma or dura. Multiple old infarcts as above. EVIDENCE OF ACUTE STROKE: NO. Qualifiers PATEINT BEING DISCHARGED WITH ANY OF THE FOLLOWING DIAGNOSIS?: No Plan Discharge Plan: Patient discharged home to follow-up with his PCP and with neurology for new onset seizure however this lesion is most likely related to ethanol abuse. Patient advised that he should not be driving or bathing and large body of water or climbing on high ladders for at least the next 6 months. Time Spent: Less than 30 Minutes
--- NOTE | 2017-08-30 13:30 | EEG PRO FEE REPORT ---
EEG INTERPRETATION PATIENT NAME: RAE MONTEMAYOR ROOM#: [id number] ORDER#: [id number] DATE OF STUDY: 08/28/2017 : 1960 REFERRING MD: STEVO MARTINS M.D. DIAGNOSIS: Seizure REPORT This is a 16 channel EEG recording with a channel of EKG done during wakefulness, photic stimulation, and drowsiness. The background activity is 8-9 cycles per second, well formed and reactive alpha best seen in the posterior electrodes; beta 18-22 cycles per second, intermittent, nonlocalized or sustained slower forms seen especially during drowsiness. Photic stimulation did not alter the tracing significantly patient seen to have constant head movement causing artifact but no seizure discharges associated with it. IMPRESSION Severe muscle movement artifact from head movement; no definite epileptiform activity noted. INTERPRETING PHYSICIAN: CARMEN MUJICA M.D. /: [id number] TT: [id number] ID: [id number] /: [id number] TD: 1252 JOB: [id number] cc:Pricila TRINIDAD M.D. >
== END 2017-08-29 15:05 | disposition home or self-care (01) | DRG 101 ==
LOC: ER 09:42 → EH 14:19 → UNDOADMIN 14:20 → 3S 16:37
DX: G40.409 Other generalized epilepsy and epileptic syndromes, not intractable, without status epilepticus (principal); G89.29 Other chronic pain; F10.10 Alcohol abuse, uncomplicated; Y90.0 Blood alcohol level of less than 20 mg/100 ml; E78.5 Hyperlipidemia, unspecified; I10 Essential (primary) hypertension; I95.9 Hypotension, unspecified; I25.10 Atherosclerotic heart disease of native coronary artery without angina pectoris; J45.909 Unspecified asthma, uncomplicated; E11.9 Type 2 diabetes mellitus without complications; B19.20 Unspecified viral hepatitis C without hepatic coma; M19.90 Unspecified osteoarthritis, unspecified site; E78.00 Pure hypercholesterolemia, unspecified; Z21 Asymptomatic human immunodeficiency virus [HIV] infection status; Z79.82 Long term (current) use of aspirin; Z79.899 Other long term (current) drug therapy; Z95.5 Presence of coronary angioplasty implant and graft; Z87.891 Personal history of nicotine dependence
CPT/HCPCS: 36415; 70450; 70553; 80053; 80307; 82550; 82607; 82746; 82962; 83735; 84439; 84443; 84484; 85025; 85610; 86592; 93005; 93010; 95819; 96361; 96372; 96374; 96375; 99285; A9577; G8987-GO; G8988-GO; G8989-GO; J1953; J2060; J3411; J3475; J3480; J3490; J7030

== ENCOUNTER 2017-11-08 12:07 | Inpatient (IN) | payer MEDICARE, MEDICAID ==
[2017-11-08] MEDS ORDERED: NORMAL SALINE 1000 ML 1,000 ML IV ONE (12:22)
[2017-11-08] MEDS ORDERED: ACETAMINOPHEN 325 MG TABLET PO ONE ×2 (12:22→20:30)
[2017-11-08] MEDS ORDERED: CEFEPIME 1 GM/D5W RTU 1 GM/50 ML RTUPB IV ONE (12:26)
[2017-11-08] MEDS: NORMAL SALINE 1000 ML 1,000 ML IV PRN ×3 (12:51→20:33)
[2017-11-08 12:53] LABS: VENOUS BLOOD BASE EXCESS -0.6 mmol/L; VENOUS BLOOD HCO3 24.7 mmol/L (20-32); VENOUS BLOOD PCO2 43.3 mmHg (35-63); VENOUS BLOOD PH 7.37 (7.30-7.42)
[2017-11-08] MEDS ORDERED: ACETAMINOPHEN 650 MG SUPP.RECT PR ONE (13:00)
--- NOTE | 2017-11-08 13:03 | ER Document Report ---
ED General - General Chief Complaint: Fever Stated Complaint: FEVER Time Seen by Provider: 11/08/17 12:26 Mode of Arrival: Ambulatory Information source: Patient Notes: 57-year-old male history of throat cancer presents with complaints of fever. Patient is a poor historian when asked if he is receiving chemotherapy he says no I quit that but then states he did it yesterday. Patient denies any nausea or vomiting admits that he aspirates. TRAVEL OUTSIDE OF THE [place] IN LAST 30 DAYS: No - HPI Onset: Yesterday Onset/Duration: Persistent Quality of pain: No pain Severity: Mild Pain Level: Denies Associated symptoms: Productive cough, Fever, Shortness of breath Exacerbated by: Denies Relieved by: Denies Similar symptoms previously: No Recently seen / treated by doctor: Yes - Related Data Allergies/Adverse Reactions: No Known Drug Allergies Allergy (Verified 11/08/17 12:12) olive extract [Roselle] Allergy (Verified 11/08/17 12:10) Shortness of Breath Home Medications: Current Home Medications Acetaminophen with Codeine [Tylenol with Codeine 120 mg-12 mg/5 mL] 5 ml PO Q6HP PRN 11/08/17 [History] Amlodipine Besylate [Norvasc 10 mg Tablet] 10 mg PO DAILY 11/08/17 [History] Atorvastatin Calcium [Lipitor 10 mg Tablet] 10 mg PO DAILY 11/08/17 [History] Quay Magic Mouthwash 5 ml PO Q4HP PRN 11/08/17 [History] Fluconazole [Diflucan 100 mg Tablet] 100 mg PO DAILY 11/08/17 [History] Gabapentin [Neurontin] 800 mg PO Q12 11/08/17 [History] Glimepiride [Amaryl 4 mg Tablet] 4 mg PO DAILY 11/08/17 [History] Ketoconazole [Nizoral] 1 applic TOP Q3DAYS 11/08/17 [History] Levetiracetam [Keppra 500 mg Tablet] 500 mg PO BID 11/08/17 [History] Levocetirizine Dihydrochloride [Xyzal] 5 mg PO DAILY 11/08/17 [History] Lorazepam [Ativan 0.5 mg Tablet] 0.5 mg PO Q8HP PRN 11/08/17 [History] Metformin HCl [Glucophage] 1,000 mg PO BIDBS 11/08/17 [History] Metoprolol Succinate [Toprol XL 100 mg Tablet] 150 mg PO DAILY 11/08/17 [History ] Ondansetron [Zofran Odt] 8 mg PO Q8HP PRN 11/08/17 [History] Paroxetine HCl [Paxil 20 mg Tablet] 20 mg PO DAILY 11/08/17 [History] Prochlorperazine Maleate [Compazine 10 mg Tablet] 10 mg PO Q6HP PRN 11/08/17 [ History] Trazodone HCl [Desyrel 50 mg Tablet] 50 mg PO QHS 11/08/17 [History] Valsartan [Diovan] 320 mg PO DAILY 11/08/17 [History] Past Medical History - Social History Smoking Status: Former Smoker Cigarette use (# per day): No Chew tobacco use (# tins/day): No Smoking Education Provided: No Frequency of alcohol use: None Drug Abuse: None Family History: Reviewed & Not Pertinent Patient has suicidal ideation: No Patient has homicidal ideation: No - Past Medical History Cardiac Medical History: Reports: Hx Coronary Artery Disease, Hx Hypercholesterolemia, Hx Hypertension Denies: Hx Heart Attack Pulmonary Medical History: Denies: Hx Asthma, Hx Bronchitis, Hx COPD, Hx Pneumonia, Hx Tuberculosis Neurological Medical History: Reports: Hx Seizures - LAST ONE 3 WEEKS . Denies : Hx Cerebrovascular Accident Endocrine Medical History: Reports: Hx Diabetes Mellitus Type 2 Renal/ Medical History: Denies: Hx Peritoneal Dialysis GI Medical History: Reports: Hx Hepatitis - HEP C,HIV+. Denies: Hx Hiatal Hernia, Hx Ulcer Musculoskeltal Medical History: Reports Hx Arthritis Infectious Medical History: Reports: Hx Hepatitis - HEP C,HIV+, Hx HIV Past Surgical History: Reports: Hx Cardiac Catheterization, Hx Cardiac Surgery - stent placement, Hx Coronary Stent, Hx Orthopedic Surgery - lumbar surgery. Denies: Hx Open Heart Surgery, Hx Pacemaker - Immunizations Hx Diphtheria, Pertussis, Tetanus Vaccination: Yes - one year per pt. Review of Systems - Review of Systems Notes: REVIEW OF SYSTEMS: CONSTITUTIONAL : Admits to fever EENT: Unable to swallow CARDIOVASCULAR: Denies chest pain. Denies palpitations or racing or irregular heart beat. Denies ankle edema. RESPIRATORY: Admits to cough GASTROINTESTINAL: Denies abdominal pain or distention. Denies nausea, vomiting , or diarrhea. Denies blood in vomitus, stools, or per rectum. Denies black, tarry stools. Denies constipation. GENITOURINARY: Denies difficulty urinating, painful urination, burning, frequency, blood in urine, or discharge. MUSCULOSKELETAL: Denies back or neck pain or stiffness. Denies joint pain or swelling. SKIN: Denies rash, lesions or sores. HEMATOLOGIC : Denies easy bruising or bleeding. LYMPHATIC: Denies swollen, enlarged glands. NEUROLOGICAL: Denies confusion or altered mental status. Denies passing out or loss of consciousness. Denies dizziness or lightheadedness. Denies headache. Denies weakness or paralysis or loss of use of either side. Denies problems with gait or speech. Denies sensory loss, numbness, or tingling. Denies seizures. PSYCHIATRIC: Denies anxiety or stress. Denies depression, suicidal ideation, or homicidal ideation. ALL OTHER SYSTEMS REVIEWED AND NEGATIVE. Dictation was performed using [employer] voice recognition software PHYSICAL EXAMINATION: GENERAL: Ill-appearing male febrile HEAD: Atraumatic, normocephalic. EYES: Pupils equal round and reactive to light, extraocular movements intact, sclera anicteric, conjunctiva are normal. ENT: Neck mass on left NECK: Normal range of motion, supple without lymphadenopathy LUNGS: Rhonchi all throughout HEART: Tachycardic ABDOMEN: Soft, nontender, nondistended abdomen. No guarding, no rebound. No masses appreciated. Musculoskeletal: Normal range of motion, no pitting or edema. No cyanosis. NEUROLOGICAL: Cranial nerves grossly intact. Normal speech, normal gait. Normal sensory, motor exams PSYCH: Normal mood, normal affect. SKIN: Warm, Dry, normal turgor, no rashes or lesions noted. Physical Exam - Vital signs Vitals: Temp Pulse Resp BP Pulse Ox 102.2 F H 130 H 20 140/65 H 100 11/08/17 12:14 11/08/17 12:14 11/08/17 12:14 11/08/17 12:14 11/08/17 12:14 Course - Re-evaluation Re-evalutation: 11/08/17 13:03 Septic workup pending 11/08/17 14:07 Dr Gibbs states he gets radiation dialy monday - monday for 6 weeks he receives intermittent chemo, last one was 10 days ago 11/08/17 15:32 Patient is noted to be febrile with history of chemo HIV, probable aspiration - Vital Signs Vital signs: Temp Pulse Resp BP Pulse Ox 99.8 F 130 H 29 H 145/85 H 99 11/08/17 14:15 11/08/17 12:14 11/08/17 14:00 11/08/17 13:12 11/08/17 14:00 - Laboratory Result Diagrams: 11/08/17 12:33 11/08/17 12:33 Laboratory results interpreted by me: 11/08/17 11/08/17 11/08/17 12:33 12:33 12:33 RBC 2.55 L Hgb 8.7 L Hct 25.1 L MCV 98 H MCH 33.9 H RDW 15.8 H Plt Count 51 L Seg Neuts % (Manual) 86 H Band Neutrophils % 2 L Lymphocytes % (Manual) 3 L Abs Lymphs (Manual) 0.2 L Sodium 133.3 L Potassium 3.5 L Carbon Dioxide 19 L Glucose 215 H POC Glucose Lactic Acid 2.3 H Urine Protein Urine Glucose (UA) Urine Ascorbic Acid 11/08/17 11/08/17 12:37 12:38 RBC Hgb Hct MCV MCH RDW Plt Count Seg Neuts % (Manual) Band Neutrophils % Lymphocytes % (Manual) Abs Lymphs (Manual) Sodium Potassium Carbon Dioxide Glucose POC Glucose 240 H Lactic Acid Urine Protein 30 H Urine Glucose (UA) >=500 H Urine Ascorbic Acid 40 H - Diagnostic Test Radiology reviewed: Image reviewed, Reports reviewed Critical Care Note - Critical Care Note Total time excluding time spent on procedures (mins): 34 Comments: 34 minutes of critical care time spent in direct contact evaluating and reevaluating the patient, treating symptoms, reviewing labs and studies and speaking with family and consultants excluding any procedures Discharge - Discharge Clinical Impression: HIV (human immunodeficiency virus infection) Sepsis Qualifiers: Sepsis type: sepsis due to unspecified organism Qualified Code(s): A41.9 - Sepsis, unspecified organism Aspiration into airway Qualifiers: Encounter type: initial encounter Qualified Code(s): T17.908A - Unspecified foreign body in respiratory tract, part unspecified causing other injury, initial encounter Condition: Fair Disposition: ADMITTED INPATIENT [facility] Admitted: Telemetry
[2017-11-08 13:04] LABS: HEMATOCRIT 25.1 % (37.9-51.0); HEMOGLOBIN 8.7 g/dL (13.5-17.0); MEAN CORPUSCULAR HEMOGLOBIN 33.9 pg (27.0-33.4); MEAN CORPUSCULAR HGB CONC 34.5 g/dL (32.0-36.0); MEAN CORPUSCULAR VOLUME 98 fl (80-97); RED BLOOD COUNT 2.55 10^6/uL (4.35-5.55); RED CELL DISTRIBUTION WIDTH 15.8 % (11.5-14.0); WHITE BLOOD COUNT 5.4 10^3/uL (4.0-10.5)
[2017-11-08 13:07] LABS: APPEARANCE,URINE SLIGHTLY-CLOUDY; BILIRUBIN,URINE NEGATIVE (NEGATIVE); COLOR,URINE YELLOW; GLUCOSE, URINE >=500 mg/dL (NEGATIVE); KETONES,URINE NEGATIVE (NEGATIVE); LEUKOCYTE ESTERASE,URINE NEGATIVE (NEGATIVE); NITRITE,URINE NEGATIVE (NEGATIVE); PROTEIN,URINE 30 mg/dL (NEGATIVE); URINE SPECIFIC GRAVITY 1.014; UROBILINOGEN,URINE NEGATIVE mg/dL (<2.0)
[2017-11-08 13:27] LABS: PLATELET COUNT 51 10^3/uL (150-450)
--- NOTE | 2017-11-08 13:30 | RADIOLOGY REPORT (SQ) ---
EXAM DESCRIPTION: CHEST SINGLE VIEW COMPLETED DATE/TIME: 11/08/2017 1:07 pm REASON FOR STUDY: hempotysis/fever COMPARISON: 06/07/2014. EXAM PARAMETERS: NUMBER OF VIEWS: One view. TECHNIQUE: Single frontal radiographic view of the chest acquired. RADIATION DOSE: NA LIMITATIONS: None. FINDINGS: LUNGS AND PLEURA: No opacities, masses or pneumothorax. No pleural effusion. MEDIASTINUM AND HILAR STRUCTURES: No masses. Contour normal. HEART AND VASCULAR STRUCTURES: Heart normal in size. Normal vasculature. BONES: No acute findings. HARDWARE: Vascular access port. OTHER: No other significant finding. IMPRESSION: NO ACUTE RADIOGRAPHIC FINDING IN THE CHEST. TECHNICAL DOCUMENTATION: JOB ID: [id number] [employer]- All Rights Reserved
[2017-11-08 13:31] LABS: ABSOLUTE LYMPHOCYTES# (MANUAL) 0.2 10^3/uL (0.5-4.7); ABSOLUTE MONOCYTES # (MANUAL) 0.4 10^3/uL (0.1-1.4); ABSOLUTE NEUTROPHILS# (MANUAL) 4.8 10^3/uL (1.7-8.2); ANISOCYTOSIS SLIGHT; BAND NEUTROPHILS % (MANUAL) 2 % (3-5); BASOPHILS % (MANUAL) 0 % (0-2); EOSINOPHILS % (MANUAL) 1 % (0-6); HYPOCHROMASIA 1+; LYMPHOCYTES % (MANUAL) 3 % (13-45); MONOCYTES % (MANUAL) 7 % (3-13); PLATELET COMMENT DECREASED; POLYCHROMASIA SLIGHT; SEGMENTED NEUTROPHILS % (MAN) 86 % (42-78); TOTAL CELLS COUNTED 100; TOXIC GRANULATION SLIGHT; TOXIC VACUOLATION PRESENT
[2017-11-08 13:33] LABS: ALANINE AMINOTRANSFERASE 30 U/L (21-72); ALBUMIN 3.5 g/dL (3.5-5.0); ALKALINE PHOSPHATASE 116 U/L (38-126); ANION GAP 13 (5-19); ASPARTATE AMINO TRANSFERASE 28 U/L (17-59); BILIRUBIN,DIRECT 0.3 mg/dL (0.0-0.4); BILIRUBIN,TOTAL 0.3 mg/dL (0.2-1.3); BLOOD UREA NITROGEN 9 mg/dL (7-20); CALCIUM 8.9 mg/dL (8.4-10.2); CARBON DIOXIDE 19 mmol/L (22-30); CHLORIDE 101 mmol/L (98-107); GLUCOSE 215 mg/dL (75-110); POTASSIUM 3.5 mmol/L (3.6-5.0); SODIUM 133.3 mmol/L (137-145); TOTAL PROTEIN 6.7 g/dL (6.3-8.2)
--- NOTE | 2017-11-08 18:31 | EKG REPORT ---
SEVERITY:- OTHERWISE NORMAL ECG - SINUS TACHYCARDIA ATRIAL PREMATURE COMPLEX : Confirmed by: Neel Burk MD 08-Nov-2017 18:31:16
--- NOTE | 2017-11-08 21:38 | PDOC H&P ---
History of Present Illness Admission Date/PCP: 11/08/17 14:13 Patient complains of: Fever History of Present Illness: RAE MONTEMAYOR is a 57 year old male known to my practice who was referred to the ED due to persistent fever despite outpatient treatment with IV Rocephin x 3 days. Patient has history of AIDS and recent diagnosis of head and neck cancer on chemotherapy and radiation therapy. He had first and middle course doses of his chemotherapy with the later about 1 week ago. He remain on radiation therapy. he developed fever subsequently. He received a dose of Neulasta with fairly satisfactory response in his WBC level. He is currently on PEG tube feeding due to associated head and neck radiation induced sift tissue inflammatory response. He reported associated productive coughing and shortness of breath. No chest pain. Patient denied associated nausea or vomiting. There was reported temperature of 102F and left shift in his WBC upon presentation. There is concern for possible aspiration pneumonia and pneumonitis. He was advised hospitalization. His morbidities include Hypertension, CAD, Hyperlipidemia, Diabetes mellitus type 2, Depression, Anxiety, Seizure disorder , HIV infection with AIDS features, chronic pain syndrome, and persistent insomnia. Past Medical History Cardiac Medical History: Reports: Coronary Artery Disease, Hyperlipidema, Hypertension Denies: Myocardial Infarction Pulmonary Medical History: Denies: Asthma, Bronchitis, Chronic Obstructive Pulmonary Disease (COPD), Pneumonia, Tuberculosis Neurological Medical History: Reports: Seizures - LAST ONE 3 WEEKS Endocrine Medical History: Reports: Diabetes Mellitus Type 2 GI Medical History: Reports: Hepatitis - HEP C,HIV+ Denies: Hiatal Hernia Musculoskeltal Medical History: Reports: Arthritis Psychiatric Medical History: Denies: Depression Hematology: Denies: Anemia, Sickle Cell Disease Infectious Medical History: Reports: HIV Past Surgical History Past Surgical History: Reports: Cardiac Catheterization, Coronary Stent, Orthopedic Surgery - lumbar surgery Denies: Pacemaker Social History Smoking Status: Current Every Day Smoker Cigarettes Packs Per Day: 0.5 Cigars Per Day: 0 Pipes Per Day: 0 Frequency of Alcohol Use: None Hx Recreational Drug Use: No Drugs: None Hx Prescription Drug Abuse: No - Advance Directive Resuscitation Status: Full Code Family History Family History: Reviewed & Not Pertinent Parental Family History Reviewed: Yes Children Family History Reviewed: Yes Sibling(s) Family History Reviewed.: Yes Medication/Allergy Home Medications: Acetaminophen with Codeine [Tylenol with Codeine 120 mg-12 mg/5 mL] 5 ml PO Q6HP PRN 11/08/17 Amlodipine Besylate [Norvasc 10 mg Tablet] 10 mg PO DAILY 11/08/17 Atorvastatin Calcium [Lipitor 10 mg Tablet] 10 mg PO DAILY 11/08/17 [place] Magic Mouthwash 5 ml PO Q4HP PRN 11/08/17 Fluconazole [Diflucan 100 mg Tablet] 100 mg PO DAILY 11/08/17 Gabapentin [Neurontin] 800 mg PO Q12 11/08/17 Glimepiride [Amaryl 4 mg Tablet] 4 mg PO DAILY 11/08/17 Ketoconazole [Nizoral] 1 applic TOP Q3DAYS 11/08/17 Levetiracetam [Keppra 500 mg Tablet] 500 mg PO BID 11/08/17 Levocetirizine Dihydrochloride [Xyzal] 5 mg PO DAILY 11/08/17 Lorazepam [Ativan 0.5 mg Tablet] 0.5 mg PO Q8HP PRN 11/08/17 Metformin HCl [Glucophage] 1,000 mg PO BIDBS 11/08/17 Metoprolol Succinate [Toprol XL 100 mg Tablet] 150 mg PO DAILY 11/08/17 Ondansetron [Zofran Odt] 8 mg PO Q8HP PRN 11/08/17 Paroxetine HCl [Paxil 20 mg Tablet] 20 mg PO DAILY 11/08/17 Prochlorperazine Maleate [Compazine 10 mg Tablet] 10 mg PO Q6HP PRN 11/08/17 Trazodone HCl [Desyrel 50 mg Tablet] 50 mg PO QHS 11/08/17 Valsartan [Diovan] 320 mg PO DAILY 11/08/17 Allergies/Adverse Reactions: No Known Drug Allergies Allergy (Verified 11/08/17 12:12) olive extract [[place]] Allergy (Verified 11/08/17 12:10) Shortness of Breath Review of Systems Constitutional: PRESENT: fever(s), weakness Nose, Mouth, and Throat: PRESENT: mouth pain, sore throat Cardiovascular: PRESENT: dyspnea on exertion Respiratory: PRESENT: cough, dyspnea, sputum Gastrointestinal: PRESENT: other - PEG tube feeding Genitourinary: ABSENT: dysuria, hematuria Musculoskeletal: ABSENT: joint swelling Integumentary: ABSENT: rash, wounds Neurological: ABSENT: abnormal gait, abnormal speech, confusion, dizziness, focal weakness, syncope Endocrine: ABSENT: cold intolerance, heat intolerance, polydipsia, polyuria Hematologic/Lymphatic: PRESENT: lymphadenopathy Allergic/Immunologic: ABSENT: seasonal rhinorrhea Physical Exam Vital Signs: Temp Pulse Resp BP Pulse Ox 102.9 F H 115 H 16 162/88 H 100 11/08/17 20:02 11/08/17 20:02 11/08/17 20:02 11/08/17 20:02 11/08/17 20:02 Intake & Output 11/07/17 11/08/17 11/09/17 06:59 06:59 06:59 Weight 66.9 kg General appearance: PRESENT: mild distress Head exam: PRESENT: atraumatic, normocephalic Eye exam: PRESENT: conjunctiva pink, EOMI, PERRLA. ABSENT: scleral icterus Mouth exam: PRESENT: moist Teeth exam: PRESENT: edentulous Throat exam: PRESENT: post pharyngeal erythema, tonsillar erythema Neck exam: PRESENT: full ROM. ABSENT: carotid bruit, JVD, lymphadenopathy, thyromegaly Respiratory exam: PRESENT: clear to auscultation melba, decreased breath sounds - at lung bases Cardiovascular exam: PRESENT: RRR, +S1, +S2, tachycardia. ABSENT: diastolic murmur, rubs, systolic murmur Vascular exam: PRESENT: normal capillary refill. ABSENT: pallor GI/Abdominal exam: PRESENT: normal bowel sounds, soft, other - PEG tube site satisfactory. ABSENT: distended, guarding, mass, organolmegaly, rebound, tenderness Rectal exam: PRESENT: deferred Extremities exam: ABSENT: pedal edema Musculoskeletal exam: PRESENT: ambulatory Neurological exam: PRESENT: alert, awake, oriented to person, oriented to place , oriented to time, oriented to situation, CN II-XII grossly intact. ABSENT: motor sensory deficit Psychiatric exam: PRESENT: appropriate affect, normal mood. ABSENT: homicidal ideation, suicidal ideation Skin exam: PRESENT: dry, rash, warm, other - radiation dermatitis involving anterior and lateral aspects of neck Results Laboratory Results: 11/08/17 16:36 Lactic Acid 1.4 Impressions: Chest X-Ray 11/08/17 12:23 IMPRESSION: NO ACUTE RADIOGRAPHIC FINDING IN THE CHEST. Assessment & Plan - Diagnosis (1) Aspiration pneumonitis Is this a current diagnosis for this admission?: Yes Plan: See admitting physician orders. (2) Aspiration pneumonia Qualifiers: Lung location: unspecified part of lung Is this a current diagnosis for this admission?: Yes Plan: See admitting physician orders. (3) Failure of outpatient treatment Is this a current diagnosis for this admission?: Yes Plan: See admitting physician orders. (4) Head and neck cancer Is this a current diagnosis for this admission?: Yes Plan: See admitting physician orders. (5) Diabetes mellitus, type II Qualifiers: Diabetes mellitus complication status: with unspecified complications Diabetes mellitus care home insulin use: without care home use Qualified Code( s): E11.8 - Type 2 diabetes mellitus with unspecified complications Is this a current diagnosis for this admission?: Yes Plan: See admitting physician orders. (6) HIV (human immunodeficiency virus infection) Is this a current diagnosis for this admission?: Yes Plan: See admitting physician orders. (7) Hypertension Qualifiers: Hypertension type: essential hypertension Qualified Code(s): I10 - Essential (primary) hypertension Is this a current diagnosis for this admission?: Yes Plan: See admitting physician orders. (8) CAD (coronary artery disease), [place] coronary artery Qualifiers: [place] vs. transplanted heart: [place] heart Associated angina: without angina Qualified Code(s): I25.10 - Atherosclerotic heart disease of [place] coronary artery without angina pectoris Is this a current diagnosis for this admission?: Yes Plan: See admitting physician orders. (9) Hyperlipidemia Qualifiers: Hyperlipidemia type: pure hypercholesterolemia Qualified Code(s): E78.00 - Pure hypercholesterolemia, unspecified; E78.0 - Pure hypercholesterolemia Is this a current diagnosis for this admission?: Yes Plan: See admitting physician orders. (10) Seizures, generalized convulsive Is this a current diagnosis for this admission?: Yes Plan: See admitting physician orders. (11) Chronic pain syndrome Is this a current diagnosis for this admission?: Yes Plan: See admitting physician orders. - Time Time Spent: 50 to 70 Minutes Medications reviewed and adjusted accordingly: Yes Anticipated discharge: Home with Homehealth Within: Other - Inpatient Certification Based on my medical assessment, after consideration of the patient's comorbidities, presenting symptoms, or acuity I expect that the services needed warrant INPATIENT care.: Yes I certify that my determination is in accordance with my understanding of Medicare's requirements for reasonable and necessary INPATIENT services [42 CFR 412.3e].: Yes Medical Necessity: Need Close Monitoring Due to Risk of Patient Decompensation, Need For IV Fluids, Need For Continuous Telemetry Monitoring, Need for IV Antibiotics, Risk of Complication if Not Cared For in Hospital Post Hospital Care: D/C Smash Piecer Documentation - Plan Summary Plan Summary: See admitting physician orders.
[2017-11-08] MEDS ORDERED: ACETAMINOPHEN WITH CODEINE 120-12 MG/5 ML UDCUP PEG PRN (21:41)
[2017-11-08] MEDS ORDERED: PROCHLORPERAZINE MALEATE 10 MG TABLET PEG PRN (21:41)
[2017-11-08] MEDS ORDERED: LORAZEPAM 0.5 MG TABLET PEG PRN (21:41)
[2017-11-08] MEDS ORDERED: GLUCAGON,HUMAN RECOMB 1 MG INJ IM PRN (21:58)
[2017-11-08] MEDS ORDERED: DEXTROSE 40% GEL 15 GM TUBE PO PRN ×2 (21:58)
[2017-11-08] MEDS ORDERED: LEVETIRACETAM 500 MG TABLET GT SCH (22:00)
[2017-11-08] MEDS ORDERED: ACETAMINOPHEN SOLN 325 MG/10.15 ML UDCUP PEG ONE (22:01)
[2017-11-08] MEDS: TRAZODONE HCL 50 MG TABLET PEG SCH (22:46)
[2017-11-08] MEDS: GABAPENTIN 400 MG CAPSULE PEG SCH (22:46)
[2017-11-08] MEDS: METOPROLOL TARTRATE 50 MG TABLET PEG SCH (22:47)
[2017-11-08] MEDS ORDERED: CEFOTAXIME INJ 1 GM VIAL ONE (23:03)
[2017-11-08] MEDS: METRONIDAZOLE 500 MG/NS RTU 100 ML IV SCH (23:13)
[2017-11-09] MEDS: CEFOTAXIME SODIUM 1 GM in DEXTROSE 5%-WATER 50 ML IV SCH ×4 (00:56→22:01)
[2017-11-09] MEDS: ONDANSETRON HCL 8 MG TABLET PEG PRN (03:42)
[2017-11-09] MEDS: METRONIDAZOLE 500 MG/NS RTU 100 ML IV SCH ×4 (05:36→23:37)
[2017-11-09] MEDS ORDERED: LANSOPRAZOLE 30 MG TAB.RAP.DR PO SCH (06:00)
[2017-11-09 07:18] LABS: ABSOLUTE EOSINOPHILS # (AUTO) 0.1 10^3/uL (0.0-0.6); ABSOLUTE LYMPHOCYTES (AUTO) 0.1 10^3/uL (0.5-4.7); ABSOLUTE MONOCYTES (AUTO) 0.3 10^3/uL (0.1-1.4); ABSOLUTE NEUT (AUTO) 1.5 10^3/uL (1.7-8.2); BASOPHILS % (AUTO) 0.7 % (0-2); EOSINOPHILS % (AUTO) 3.5 % (0-6); HEMATOCRIT 23.3 % (37.9-51.0); LYMPHOCYTES % (AUTO) 6.7 % (13-45); MEAN CORPUSCULAR HEMOGLOBIN 33.7 pg (27.0-33.4); MEAN CORPUSCULAR HGB CONC 34.5 g/dL (32.0-36.0); MEAN CORPUSCULAR VOLUME 98 fl (80-97); MONOCYTES % (AUTO) 14.2 % (3-13); RED BLOOD COUNT 2.38 10^6/uL (4.35-5.55); RED CELL DISTRIBUTION WIDTH 16.3 % (11.5-14.0); SEGMENTED NEUTROPHILS % (AUTO) 74.9 % (42-78); TOTAL CELLS COUNTED % (AUTO) 100 %
[2017-11-09 07:37] LABS: ALANINE AMINOTRANSFERASE 37 U/L (21-72); ALBUMIN 3.3 g/dL (3.5-5.0); ALKALINE PHOSPHATASE 76 U/L (38-126); ANION GAP 10 (5-19); ASPARTATE AMINO TRANSFERASE 26 U/L (17-59); BILIRUBIN,DIRECT 0.5 mg/dL (0.0-0.4); BILIRUBIN,TOTAL 0.6 mg/dL (0.2-1.3); BLOOD UREA NITROGEN 6 mg/dL (7-20); CALCIUM 8.7 mg/dL (8.4-10.2); CARBON DIOXIDE 22 mmol/L (22-30); CHLORIDE 104 mmol/L (98-107); GLUCOSE 104 mg/dL (75-110); POTASSIUM 3.3 mmol/L (3.6-5.0); SODIUM 135.6 mmol/L (137-145); TOTAL PROTEIN 6.4 g/dL (6.3-8.2)
[2017-11-09 08:04] LABS: HYPOCHROMASIA SLIGHT; PLATELET COMMENT DECREASED; POLYCHROMASIA SLIGHT; TOXIC GRANULATION SLIGHT
[2017-11-09 08:25] LABS: PLATELET COUNT 39 10^3/uL (150-450); WHITE BLOOD COUNT 2.1 10^3/uL (4.0-10.5)
[2017-11-09] MEDS ORDERED: (PENDING PHARMACY ID) (Valsartan [Diovan] 320 MG) PEG SCH (10:00)
[2017-11-09] MEDS: VALSARTAN 160 MG TABLET PEG SCH (11:11)
[2017-11-09] MEDS: PAROXETINE HCL 20 MG TABLET PEG SCH (11:15)
[2017-11-09] MEDS: AMLODIPINE BESYLATE 10 MG TABLET PEG SCH (11:16)
[2017-11-09] MEDS: METOPROLOL TARTRATE 50 MG TABLET PEG SCH ×2 (11:16→22:01)
[2017-11-09] MEDS: CETIRIZINE 5 MG TABLET PEG SCH (11:18)
[2017-11-09] MEDS: ACETAMINOPHEN SOLN 325 MG/10.15 ML UDCUP PEG PRN ×2 (11:22→20:42)
[2017-11-09] MEDS: NORMAL SALINE 1000 ML 1,000 ML IV PRN (11:23)
[2017-11-09] MEDS: GLIMEPIRIDE 4 MG TABLET PEG SCH (11:29)
[2017-11-09] MEDS: METFORMIN HCL 500 MG TABLET PEG SCH ×2 (11:29→17:55)
[2017-11-09] MEDS: ENOXAPARIN SODIUM INJ 40 MG/0.4 ML DISP.SYRIN SUBCUT SCH (11:29)
[2017-11-09] MEDS ORDERED: LEVETIRACETAM ORAL SOLN 500 MG/5 ML UDCUP GT ONE (11:30)
[2017-11-09] MEDS: GABAPENTIN 400 MG CAPSULE PEG SCH ×2 (13:55→22:01)
[2017-11-09] MEDS: FLUCONAZOLE 100 MG TABLET PEG SCH (13:55)
[2017-11-09] MEDS: ATORVASTATIN CALCIUM 10 MG TABLET PEG SCH (13:55)
[2017-11-09] MEDS: TRAZODONE HCL 50 MG TABLET PEG SCH (22:01)
[2017-11-09] MEDS: LEVETIRACETAM ORAL SOLN 500 MG/5 ML UDCUP GT SCH (22:01)
--- NOTE | 2017-11-09 22:17 | PDOC PROGRESS REPORT ---
Subjective Progress Note for:: 11/09/17 Subjective:: He was seen by the bedside Reason For Visit: HIV/SEPSIS/ASPIRATION INTO AIRWAY Physical Exam Vital Signs: Temp Pulse Resp BP Pulse Ox 100.9 F H 108 H 20 153/83 H 100 11/09/17 19:42 11/09/17 19:42 11/09/17 19:42 11/09/17 19:42 11/09/17 19:42 Intake & Output 11/08/17 11/09/17 11/10/17 06:59 06:59 06:59 Intake Total 1633 1580 Output Total 350 425 Balance 1283 1155 Weight 66.9 kg General appearance: PRESENT: no acute distress Eye exam: PRESENT: PERRLA Respiratory exam: PRESENT: clear to auscultation melba Cardiovascular exam: PRESENT: +S1, +S2 GI/Abdominal exam: PRESENT: soft Neurological exam: PRESENT: alert Results Laboratory Results: 11/09/17 06:31 11/09/17 06:31 11/09/17 11/09/17 06:31 06:31 WBC 2.1 L D RBC 2.38 L Hgb 8.0 L Hct 23.3 L MCV 98 H MCH 33.7 H MCHC 34.5 RDW 16.3 H Plt Count 39 L Seg Neutrophils % 74.9 Lymphocytes % 6.7 L Monocytes % 14.2 H Eosinophils % 3.5 Basophils % 0.7 Absolute Neutrophils 1.5 L Absolute Lymphocytes 0.1 L Absolute Monocytes 0.3 Absolute Eosinophils 0.1 Absolute Basophils 0.0 Sodium 135.6 L Potassium 3.3 L Chloride 104 Carbon Dioxide 22 Anion Gap 10 BUN 6 L Creatinine 0.60 Est GFR ( Amer) > 60 Est GFR (Non-Af Amer) > 60 Glucose 104 Calcium 8.7 Total Bilirubin 0.6 AST 26 ALT 37 Alkaline Phosphatase 76 Total Protein 6.4 Albumin 3.3 L Impressions: Chest X-Ray 11/08/17 12:23 IMPRESSION: NO ACUTE RADIOGRAPHIC FINDING IN THE CHEST. Assessment & Plan - Diagnosis (1) Sepsis Qualifiers: Sepsis type: sepsis due to unspecified organism Qualified Code(s): A41.9 - Sepsis, unspecified organism (2) Aspiration pneumonia Qualifiers: Lung location: unspecified part of lung Is this a current diagnosis for this admission?: Yes (3) Diabetes mellitus, type II Qualifiers: Diabetes mellitus complication status: with unspecified complications Diabetes mellitus mcc insulin use: without mcc use Qualified Code( s): E11.8 - Type 2 diabetes mellitus with unspecified complications Is this a current diagnosis for this admission?: Yes (4) Head and neck cancer Is this a current diagnosis for this admission?: Yes - Plan Summary Plan Summary: Continue present treatment
[2017-11-09] MEDS: INSULIN LISPRO 100 UNIT/ML 3 ML VIAL SUBCUT PRN (23:37)
[2017-11-10] MEDS: ACETAMINOPHEN SOLN 325 MG/10.15 ML UDCUP PEG PRN ×2 (03:16→12:09)
[2017-11-10] MEDS: CEFOTAXIME SODIUM 1 GM in DEXTROSE 5%-WATER 50 ML IV SCH ×3 (05:47→22:05)
[2017-11-10] MEDS: METRONIDAZOLE 500 MG/NS RTU 100 ML IV SCH ×3 (05:47→17:42)
[2017-11-10] MEDS: LANSOPRAZOLE 30 MG TAB.RAP.DR PO SCH (05:47)
[2017-11-10] MEDS: INSULIN LISPRO 100 UNIT/ML 3 ML VIAL SUBCUT PRN (06:52)
[2017-11-10 10:38] LABS: HEMATOCRIT 23.4 % (37.9-51.0); HEMOGLOBIN 8.2 g/dL (13.5-17.0); MEAN CORPUSCULAR HEMOGLOBIN 33.8 pg (27.0-33.4); MEAN CORPUSCULAR HGB CONC 34.9 g/dL (32.0-36.0); MEAN CORPUSCULAR VOLUME 97 fl (80-97); RED BLOOD COUNT 2.42 10^6/uL (4.35-5.55); RED CELL DISTRIBUTION WIDTH 16.6 % (11.5-14.0)
[2017-11-10 10:42] LABS: ANION GAP 10 (5-19); BLOOD UREA NITROGEN 6 mg/dL (7-20); CALCIUM 9.1 mg/dL (8.4-10.2); CARBON DIOXIDE 23 mmol/L (22-30); CHLORIDE 104 mmol/L (98-107); GLUCOSE 104 mg/dL (75-110); POTASSIUM 3.2 mmol/L (3.6-5.0)
[2017-11-10 11:04] LABS: WHITE BLOOD COUNT 1.1 10^3/uL (4.0-10.5)
[2017-11-10 11:05] LABS: PLATELET COUNT 34 10^3/uL (150-450)
[2017-11-10 11:14] LABS: ABSOLUTE NEUTROPHILS# (MANUAL) 0.7 10^3/uL (1.7-8.2); BASOPHILS % (MANUAL) 0 % (0-2); NUCLEATED RED BLOOD CELLS 1 /100 WBC (0); SEGMENTED NEUTROPHILS % (MAN) 60 % (42-78); TOTAL CELLS COUNTED 100
[2017-11-10 11:15] LABS: ABSOLUTE LYMPHOCYTES# (MANUAL) 0.2 10^3/uL (0.5-4.7); ABSOLUTE MONOCYTES # (MANUAL) 0.1 10^3/uL (0.1-1.4); ANISOCYTOSIS 1+; BAND NEUTROPHILS % (MANUAL) 6 % (3-5); EOSINOPHILS % (MANUAL) 4 % (0-6); LYMPHOCYTES % (MANUAL) 18 % (13-45); MONOCYTES % (MANUAL) 11 % (3-13); PLATELET COMMENT DECREASED; POLYCHROMASIA 1+; TOXIC GRANULATION 1+; TOXIC VACUOLATION PRESENT
[2017-11-10 11:16] LABS: OVALOCYTES SLIGHT; POIKILOCYTOSIS SLIGHT
[2017-11-10] MEDS: GABAPENTIN 400 MG CAPSULE PEG SCH ×2 (12:07→22:04)
[2017-11-10] MEDS: METOPROLOL TARTRATE 50 MG TABLET PEG SCH ×2 (12:07→22:04)
[2017-11-10] MEDS: VALSARTAN 160 MG TABLET PEG SCH (12:07)
[2017-11-10] MEDS: ATORVASTATIN CALCIUM 10 MG TABLET PEG SCH (12:07)
[2017-11-10] MEDS: PAROXETINE HCL 20 MG TABLET PEG SCH (12:07)
[2017-11-10] MEDS: METFORMIN HCL 500 MG TABLET PEG SCH ×2 (12:08→17:42)
[2017-11-10] MEDS: CETIRIZINE 5 MG TABLET PEG SCH (12:08)
[2017-11-10] MEDS: FLUCONAZOLE 100 MG TABLET PEG SCH (12:08)
[2017-11-10] MEDS: LEVETIRACETAM ORAL SOLN 500 MG/5 ML UDCUP GT SCH ×2 (12:09→22:08)
[2017-11-10] MEDS: ENOXAPARIN SODIUM INJ 40 MG/0.4 ML DISP.SYRIN SUBCUT SCH (12:10)
[2017-11-10] MEDS: GLIMEPIRIDE 4 MG TABLET PEG SCH (12:10)
[2017-11-10] MEDS: NORMAL SALINE 1000 ML 1,000 ML IV PRN (12:33)
[2017-11-10] MEDS: AMLODIPINE BESYLATE 10 MG TABLET PEG SCH (13:38)
[2017-11-10] MEDS ORDERED: FILGRASTIM INJ 300 MCG/1 ML VIAL SUBCUT ONE (20:00)
[2017-11-10 20:12] LABS: HEMATOCRIT 28.2 % (37.9-51.0); HEMOGLOBIN 9.5 g/dL (13.5-17.0); MEAN CORPUSCULAR HEMOGLOBIN 33.1 pg (27.0-33.4); MEAN CORPUSCULAR HGB CONC 33.6 g/dL (32.0-36.0); MEAN CORPUSCULAR VOLUME 99 fl (80-97); RED BLOOD COUNT 2.85 10^6/uL (4.35-5.55); RED CELL DISTRIBUTION WIDTH 16.6 % (11.5-14.0)
[2017-11-10 20:28] LABS: ALANINE AMINOTRANSFERASE 39 U/L (21-72); ALBUMIN 3.5 g/dL (3.5-5.0); ALKALINE PHOSPHATASE 109 U/L (38-126); ANION GAP 11 (5-19); ASPARTATE AMINO TRANSFERASE 34 U/L (17-59); BILIRUBIN,DIRECT 0.4 mg/dL (0.0-0.4); BILIRUBIN,TOTAL 0.5 mg/dL (0.2-1.3); BLOOD UREA NITROGEN 7 mg/dL (7-20); CALCIUM 9.4 mg/dL (8.4-10.2); CARBON DIOXIDE 24 mmol/L (22-30); CHLORIDE 104 mmol/L (98-107); GLUCOSE 122 mg/dL (75-110); POTASSIUM 3.5 mmol/L (3.6-5.0); SODIUM 138.9 mmol/L (137-145); TOTAL PROTEIN 6.6 g/dL (6.3-8.2)
--- NOTE | 2017-11-10 20:50 | PDOC PROGRESS REPORT ---
Subjective Progress Note for:: 11/10/17 Subjective:: Patient was seen by the bedside, he has not been taking his anti-retroviral drug , he was encouraged to get his family to bring the medication to the hospital I also spoke to the nurse to call pharmacy to find out exactly what he takes for his HIV infection Reason For Visit: HIV/SEPSIS/ASPIRATION INTO AIRWAY Physical Exam Vital Signs: Temp Pulse Resp BP Pulse Ox 98.0 F 92 16 125/71 100 11/10/17 15:46 11/10/17 19:00 11/10/17 16:00 11/10/17 15:46 11/10/17 15:46 Intake & Output 11/09/17 11/10/17 11/11/17 06:59 06:59 06:59 Intake Total 1633 4320 4089 Output Total 350 850 Balance 1283 3470 4089 Weight 66.9 kg 66 kg General appearance: PRESENT: no acute distress Head exam: PRESENT: atraumatic, normocephalic Ear exam: PRESENT: normal external ear exam Mouth exam: PRESENT: moist, tongue midline Neck exam: PRESENT: full ROM Cardiovascular exam: PRESENT: RRR, +S1, +S2 Vascular exam: PRESENT: normal capillary refill GI/Abdominal exam: PRESENT: normal bowel sounds, soft Rectal exam: PRESENT: deferred Neurological exam: PRESENT: alert Psychiatric exam: PRESENT: appropriate affect, normal mood Skin exam: PRESENT: dry, intact, warm Results Laboratory Results: 11/10/17 19:51 11/10/17 11/10/17 11/10/17 10:17 10:17 19:51 WBC 1.1 L* RBC 2.42 L Hgb 8.2 L Hct 23.4 L MCV 97 MCH 33.8 H MCHC 34.9 RDW 16.6 H Plt Count 34 L Seg Neutrophils % Not Reportable Lymphocytes % Not Reportable Monocytes % Not Reportable Eosinophils % Not Reportable Basophils % Not Reportable Absolute Neutrophils Not Reportable Absolute Lymphocytes Not Reportable Absolute Monocytes Not Reportable Absolute Eosinophils Not Reportable Absolute Basophils Not Reportable Sodium 137.0 138.9 Potassium 3.2 L 3.5 L Chloride 104 104 Carbon Dioxide 23 24 Anion Gap 10 11 BUN 6 L 7 Creatinine 0.56 0.60 Est GFR ( Amer) > 60 > 60 Est GFR (Non-Af Amer) > 60 > 60 Glucose 104 122 H Calcium 9.1 9.4 Total Bilirubin 0.5 AST 34 ALT 39 Alkaline Phosphatase 109 Total Protein 6.6 Albumin 3.5 Impressions: Chest X-Ray 11/08/17 12:23 IMPRESSION: NO ACUTE RADIOGRAPHIC FINDING IN THE CHEST. Assessment & Plan - Diagnosis (1) Sepsis Qualifiers: Sepsis type: sepsis due to unspecified organism Qualified Code(s): A41.9 - Sepsis, unspecified organism Is this a current diagnosis for this admission?: Yes (2) Aspiration pneumonia Qualifiers: Lung location: unspecified part of lung Is this a current diagnosis for this admission?: Yes (3) Diabetes mellitus, type II Qualifiers: Diabetes mellitus complication status: with unspecified complications Diabetes mellitus buttermaker continuous churn insulin use: without buttermaker continuous churn use Qualified Code( s): E11.8 - Type 2 diabetes mellitus with unspecified complications Is this a current diagnosis for this admission?: Yes (4) Head and neck cancer Is this a current diagnosis for this admission?: Yes (5) Leucopenia Qualifiers: Leukopenia type: unspecified Qualified Code(s): D72.819 - Decreased white blood cell count, unspecified Is this a current diagnosis for this admission?: Yes Plan: She was given IV neutrogen
[2017-11-10 20:54] LABS: PLATELET COUNT 42 10^3/uL (150-450)
[2017-11-10 21:03] LABS: ABSOLUTE LYMPHOCYTES# (MANUAL) 0.3 10^3/uL (0.5-4.7); ABSOLUTE MONOCYTES # (MANUAL) 0.1 10^3/uL (0.1-1.4); ABSOLUTE NEUTROPHILS# (MANUAL) 0.9 10^3/uL (1.7-8.2); BAND NEUTROPHILS % (MANUAL) 6 % (3-5); BASOPHILS % (MANUAL) 0 % (0-2); EOSINOPHILS % (MANUAL) 0 % (0-6); LYMPHOCYTES % (MANUAL) 22 % (13-45); MONOCYTES % (MANUAL) 6 % (3-13); SEGMENTED NEUTROPHILS % (MAN) 66 % (42-78); TOTAL CELLS COUNTED 50
[2017-11-10 21:05] LABS: ANISOCYTOSIS 1+; OVALOCYTES SLIGHT; PLATELET COMMENT DECREASED; POIKILOCYTOSIS SLIGHT; POLYCHROMASIA SLIGHT; TARGET CELLS SLIGHT
[2017-11-10 21:07] LABS: WHITE BLOOD COUNT 1.2 10^3/uL (4.0-10.5)
[2017-11-10 21:09] LABS: TOXIC GRANULATION 1+
[2017-11-10] MEDS: TRAZODONE HCL 50 MG TABLET PEG SCH (22:03)
[2017-11-11] MEDS: NORMAL SALINE 1000 ML 1,000 ML IV PRN (00:09)
[2017-11-11] MEDS: METRONIDAZOLE 500 MG/NS RTU 100 ML IV SCH ×4 (00:10→17:48)
[2017-11-11] MEDS: LANSOPRAZOLE 30 MG TAB.RAP.DR PO SCH (05:32)
[2017-11-11] MEDS: CEFOTAXIME SODIUM 1 GM in DEXTROSE 5%-WATER 50 ML IV SCH ×3 (05:32→21:38)
[2017-11-11] MEDS: METFORMIN HCL 500 MG TABLET PEG SCH ×2 (12:14→17:48)
[2017-11-11] MEDS: LEVETIRACETAM ORAL SOLN 500 MG/5 ML UDCUP GT SCH ×2 (12:15→21:38)
[2017-11-11] MEDS: ENOXAPARIN SODIUM INJ 40 MG/0.4 ML DISP.SYRIN SUBCUT SCH (12:15)
[2017-11-11] MEDS: CETIRIZINE 5 MG TABLET PEG SCH (12:15)
[2017-11-11] MEDS: PAROXETINE HCL 20 MG TABLET PEG SCH (12:16)
[2017-11-11] MEDS: METOPROLOL TARTRATE 50 MG TABLET PEG SCH ×2 (12:16→21:38)
[2017-11-11] MEDS: GABAPENTIN 400 MG CAPSULE PEG SCH ×2 (12:17→21:38)
[2017-11-11] MEDS: ATORVASTATIN CALCIUM 10 MG TABLET PEG SCH (12:17)
[2017-11-11] MEDS: VALSARTAN 160 MG TABLET PEG SCH (12:17)
[2017-11-11] MEDS: AMLODIPINE BESYLATE 10 MG TABLET PEG SCH (12:17)
[2017-11-11] MEDS: GLIMEPIRIDE 4 MG TABLET PEG SCH (12:18)
[2017-11-11] MEDS: FLUCONAZOLE 100 MG TABLET PEG SCH (12:18)
[2017-11-11 15:38] LABS: HEMATOCRIT 24.3 % (37.9-51.0); HEMOGLOBIN 8.3 g/dL (13.5-17.0); MEAN CORPUSCULAR HEMOGLOBIN 33.5 pg (27.0-33.4); MEAN CORPUSCULAR HGB CONC 34.1 g/dL (32.0-36.0); MEAN CORPUSCULAR VOLUME 98 fl (80-97); RED BLOOD COUNT 2.47 10^6/uL (4.35-5.55); RED CELL DISTRIBUTION WIDTH 17.4 % (11.5-14.0)
[2017-11-11 15:54] LABS: ALANINE AMINOTRANSFERASE 29 U/L (21-72); ALKALINE PHOSPHATASE 134 U/L (38-126); ANION GAP 8 (5-19); ASPARTATE AMINO TRANSFERASE 29 U/L (17-59); BILIRUBIN,DIRECT 0.3 mg/dL (0.0-0.4); BILIRUBIN,TOTAL 0.3 mg/dL (0.2-1.3); BLOOD UREA NITROGEN 8 mg/dL (7-20); CARBON DIOXIDE 25 mmol/L (22-30); CHLORIDE 107 mmol/L (98-107); GLUCOSE 92 mg/dL (75-110); POTASSIUM 3.3 mmol/L (3.6-5.0); SODIUM 139.8 mmol/L (137-145); TOTAL PROTEIN 5.9 g/dL (6.3-8.2)
[2017-11-11 16:04] LABS: ABSOLUTE LYMPHOCYTES# (MANUAL) 0.3 10^3/uL (0.5-4.7); ABSOLUTE NEUTROPHILS# (MANUAL) 1.6 10^3/uL (1.7-8.2); BAND NEUTROPHILS % (MANUAL) 6 % (3-5); BASOPHILS % (MANUAL) 0 % (0-2); EOSINOPHILS % (MANUAL) 2 % (0-6); LYMPHOCYTES % (MANUAL) 14 % (13-45); MONOCYTES % (MANUAL) 0 % (3-13); NUCLEATED RED BLOOD CELLS 4 /100 WBC (0); SEGMENTED NEUTROPHILS % (MAN) 78 % (42-78); TOTAL CELLS COUNTED 50
[2017-11-11 16:05] LABS: ANISOCYTOSIS 1+; POLYCHROMASIA SLIGHT
[2017-11-11 16:06] LABS: HYPOCHROMASIA SLIGHT; POIKILOCYTOSIS SLIGHT; TARGET CELLS SLIGHT
[2017-11-11 16:07] LABS: PLATELET COMMENT DECREASED
[2017-11-11 16:08] LABS: PLATELET COUNT 36 10^3/uL (150-450); WHITE BLOOD COUNT 1.9 10^3/uL (4.0-10.5)
--- NOTE | 2017-11-11 18:12 | PDOC PROGRESS REPORT ---
Subjective Progress Note for:: 11/11/17 Subjective:: Patient was seen by the bedside, he looks better today, yesterday he was given a dose of Neupogen, the white blood cell count is increased to 1.9. The Nurses are yet to get antiretroviral medication from the retail pharmacy, patient does not remember the names of the antiretroviral medication he is on, we need to initiate the medication as soon as possible Reason For Visit: HIV/SEPSIS/ASPIRATION INTO AIRWAY Physical Exam Vital Signs: Temp Pulse Resp BP Pulse Ox 99.5 F 96 16 130/84 H 100 11/11/17 15:30 11/11/17 15:30 11/11/17 15:30 11/11/17 15:30 11/11/17 15:30 Intake & Output 11/10/17 11/11/17 11/12/17 06:59 06:59 06:59 Intake Total 4320 7009 180 Output Total 850 500 625 Balance 3470 6509 -445 Weight 66 kg 70.1 kg General appearance: PRESENT: no acute distress Eye exam: PRESENT: PERRLA Respiratory exam: PRESENT: clear to auscultation melba Cardiovascular exam: PRESENT: +S1, +S2 GI/Abdominal exam: PRESENT: soft, other - There is a PEG tube in place Neurological exam: PRESENT: alert Results Laboratory Results: 11/11/17 15:25 11/11/17 15:25 11/10/17 11/10/17 11/11/17 19:51 19:51 15:25 WBC 1.2 L* 1.9 L RBC 2.85 L 2.47 L Hgb 9.5 L 8.3 L Hct 28.2 L 24.3 L MCV 99 H 98 H MCH 33.1 33.5 H MCHC 33.6 34.1 RDW 16.6 H 17.4 H Plt Count 42 L 36 L Seg Neutrophils % Not Reportable Not Reportable Lymphocytes % Not Reportable Not Reportable Monocytes % Not Reportable Not Reportable Eosinophils % Not Reportable Not Reportable Basophils % Not Reportable Not Reportable Absolute Neutrophils Not Reportable Not Reportable Absolute Lymphocytes Not Reportable Not Reportable Absolute Monocytes Not Reportable Not Reportable Absolute Eosinophils Not Reportable Not Reportable Absolute Basophils Not Reportable Not Reportable Sodium 138.9 Potassium 3.5 L Chloride 104 Carbon Dioxide 24 Anion Gap 11 BUN 7 Creatinine 0.60 Est GFR ( Amer) > 60 Est GFR (Non-Af Amer) > 60 Glucose 122 H Calcium 9.4 Total Bilirubin 0.5 AST 34 ALT 39 Alkaline Phosphatase 109 Total Protein 6.6 Albumin 3.5 11/11/17 15:25 WBC RBC Hgb Hct MCV MCH MCHC RDW Plt Count Seg Neutrophils % Lymphocytes % Monocytes % Eosinophils % Basophils % Absolute Neutrophils Absolute Lymphocytes Absolute Monocytes Absolute Eosinophils Absolute Basophils Sodium 139.8 Potassium 3.3 L Chloride 107 Carbon Dioxide 25 Anion Gap 8 BUN 8 Creatinine 0.56 Est GFR ( Amer) > 60 Est GFR (Non-Af Amer) > 60 Glucose 92 Calcium 9.0 Total Bilirubin 0.3 AST 29 ALT 29 Alkaline Phosphatase 134 H Total Protein 5.9 L Albumin 3.0 L Impressions: Chest X-Ray 11/08/17 12:23 IMPRESSION: NO ACUTE RADIOGRAPHIC FINDING IN THE CHEST. Assessment & Plan - Diagnosis (1) Sepsis Qualifiers: Sepsis type: sepsis due to unspecified organism Qualified Code(s): A41.9 - Sepsis, unspecified organism Is this a current diagnosis for this admission?: Yes (2) Aspiration pneumonia Qualifiers: Lung location: unspecified part of lung Is this a current diagnosis for this admission?: Yes (3) Diabetes mellitus, type II Qualifiers: Diabetes mellitus complication status: with unspecified complications Diabetes mellitus long-term insulin use: without long-term use Qualified Code( s): E11.8 - Type 2 diabetes mellitus with unspecified complications Is this a current diagnosis for this admission?: Yes (4) Head and neck cancer Is this a current diagnosis for this admission?: Yes (5) Leucopenia Qualifiers: Leukopenia type: unspecified Qualified Code(s): D72.819 - Decreased white blood cell count, unspecified Is this a current diagnosis for this admission?: Yes
[2017-11-11] MEDS ORDERED: METOPROLOL SUCCINATE 50 MG TAB.SR.24H PO SCH (18:15)
[2017-11-11] MEDS ORDERED: METOPROLOL SUCCINATE 50 MG TAB.SR.24H PO ONE (19:00)
[2017-11-11] MEDS: TRAZODONE HCL 50 MG TABLET PEG SCH (21:38)
[2017-11-12] MEDS: NORMAL SALINE 1000 ML 1,000 ML IV PRN ×2 (00:22→12:55)
[2017-11-12] MEDS: METRONIDAZOLE 500 MG/NS RTU 100 ML IV SCH ×5 (00:22→23:34)
[2017-11-12] MEDS: LANSOPRAZOLE 30 MG TAB.RAP.DR PO SCH (06:31)
[2017-11-12] MEDS: CEFOTAXIME SODIUM 1 GM in DEXTROSE 5%-WATER 50 ML IV SCH ×3 (06:38→23:34)
[2017-11-12 07:23] LABS: HEMATOCRIT 22.5 % (37.9-51.0); MEAN CORPUSCULAR HEMOGLOBIN 33.9 pg (27.0-33.4); MEAN CORPUSCULAR HGB CONC 34.4 g/dL (32.0-36.0); MEAN CORPUSCULAR VOLUME 99 fl (80-97); RED BLOOD COUNT 2.28 10^6/uL (4.35-5.55); WHITE BLOOD COUNT 2.1 10^3/uL (4.0-10.5)
[2017-11-12 07:24] LABS: ALANINE AMINOTRANSFERASE 29 U/L (21-72); ALBUMIN 2.8 g/dL (3.5-5.0); ALKALINE PHOSPHATASE 148 U/L (38-126); ANION GAP 7 (5-19); ASPARTATE AMINO TRANSFERASE 29 U/L (17-59); BILIRUBIN,DIRECT 0.2 mg/dL (0.0-0.4); BILIRUBIN,TOTAL 0.2 mg/dL (0.2-1.3); BLOOD UREA NITROGEN 7 mg/dL (7-20); CALCIUM 8.6 mg/dL (8.4-10.2); CARBON DIOXIDE 26 mmol/L (22-30); CHLORIDE 105 mmol/L (98-107); GLUCOSE 94 mg/dL (75-110); POTASSIUM 3.2 mmol/L (3.6-5.0); SODIUM 138.4 mmol/L (137-145); TOTAL PROTEIN 5.6 g/dL (6.3-8.2)
[2017-11-12 08:32] LABS: ABSOLUTE LYMPHOCYTES# (MANUAL) 0.2 10^3/uL (0.5-4.7); ABSOLUTE MONOCYTES # (MANUAL) 0.2 10^3/uL (0.1-1.4); ABSOLUTE NEUTROPHILS# (MANUAL) 1.7 10^3/uL (1.7-8.2); BASOPHILS % (MANUAL) 0 % (0-2); EOSINOPHILS % (MANUAL) 1 % (0-6); LYMPHOCYTES % (MANUAL) 7 % (13-45); MONOCYTES % (MANUAL) 10 % (3-13); NUCLEATED RED BLOOD CELLS 2 /100 WBC (0); SEGMENTED NEUTROPHILS % (MAN) 67 % (42-78); TOTAL CELLS COUNTED 100
[2017-11-12 08:34] LABS: ANISOCYTOSIS 1+; HYPOCHROMASIA 1+; TOXIC GRANULATION SLIGHT
[2017-11-12 08:35] LABS: BAND NEUTROPHILS % (MANUAL) 13 % (3-5); PLATELET COMMENT DECREASED; POLYCHROMASIA SLIGHT; TEAR DROP CELLS SLIGHT
[2017-11-12 08:36] LABS: PLATELET COUNT 38 10^3/uL (150-450)
[2017-11-12 08:38] LABS: HEMOGLOBIN 7.7 g/dL (13.5-17.0)
[2017-11-12] MEDS: GABAPENTIN 400 MG CAPSULE PEG SCH ×2 (09:21→23:34)
[2017-11-12] MEDS: VALSARTAN 160 MG TABLET PEG SCH (09:21)
[2017-11-12] MEDS: METFORMIN HCL 500 MG TABLET PEG SCH ×2 (09:21→18:24)
[2017-11-12] MEDS: ATORVASTATIN CALCIUM 10 MG TABLET PEG SCH (09:22)
[2017-11-12] MEDS: FLUCONAZOLE 100 MG TABLET PEG SCH (09:23)
[2017-11-12] MEDS: PAROXETINE HCL 20 MG TABLET PEG SCH (09:23)
[2017-11-12] MEDS: LEVETIRACETAM ORAL SOLN 500 MG/5 ML UDCUP GT SCH ×2 (09:23→23:33)
[2017-11-12] MEDS: GLIMEPIRIDE 4 MG TABLET PEG SCH (09:23)
[2017-11-12] MEDS: AMLODIPINE BESYLATE 10 MG TABLET PEG SCH (09:23)
[2017-11-12] MEDS: CETIRIZINE 5 MG TABLET PEG SCH (09:23)
[2017-11-12] MEDS: METOPROLOL TARTRATE 50 MG TABLET PEG SCH ×2 (09:23→23:34)
[2017-11-12] MEDS: ENOXAPARIN SODIUM INJ 40 MG/0.4 ML DISP.SYRIN SUBCUT SCH (09:24)
--- NOTE | 2017-11-12 14:55 | PDOC PROGRESS REPORT ---
Subjective Progress Note for:: 11/12/17 Subjective:: The nursing staff was able to get is anti-HIV medication from the pharmacy, this will be ordered Reason For Visit: HIV/SEPSIS/ASPIRATION INTO AIRWAY Physical Exam Vital Signs: Temp Pulse Resp BP Pulse Ox 100.3 F 95 20 138/75 H 100 11/12/17 11:17 11/12/17 14:00 11/12/17 11:17 11/12/17 11:17 11/12/17 11:17 Intake & Output 11/11/17 11/12/17 11/13/17 06:59 06:59 06:59 Intake Total 7009 62710 Output Total 500 1175 Balance 6509 9049 Weight 70.1 kg General appearance: PRESENT: no acute distress Eye exam: PRESENT: PERRLA Respiratory exam: PRESENT: clear to auscultation melba Cardiovascular exam: PRESENT: +S1, +S2 GI/Abdominal exam: PRESENT: soft Neurological exam: PRESENT: alert Results Laboratory Results: 11/12/17 06:36 11/12/17 06:36 11/11/17 11/11/17 11/12/17 15:25 15:25 06:36 WBC 1.9 L RBC 2.47 L Hgb 8.3 L Hct 24.3 L MCV 98 H MCH 33.5 H MCHC 34.1 RDW 17.4 H Plt Count 36 L Seg Neutrophils % Not Reportable Lymphocytes % Not Reportable Monocytes % Not Reportable Eosinophils % Not Reportable Basophils % Not Reportable Absolute Neutrophils Not Reportable Absolute Lymphocytes Not Reportable Absolute Monocytes Not Reportable Absolute Eosinophils Not Reportable Absolute Basophils Not Reportable Sodium 139.8 138.4 Potassium 3.3 L 3.2 L Chloride 107 105 Carbon Dioxide 25 26 Anion Gap 8 7 BUN 8 7 Creatinine 0.56 0.55 Est GFR ( Amer) > 60 > 60 Est GFR (Non-Af Amer) > 60 > 60 Glucose 92 94 Calcium 9.0 8.6 Total Bilirubin 0.3 0.2 AST 29 29 ALT 29 29 Alkaline Phosphatase 134 H 148 H Total Protein 5.9 L 5.6 L Albumin 3.0 L 2.8 L 11/12/17 06:36 WBC 2.1 L RBC 2.28 L Hgb 7.7 L Hct 22.5 L MCV 99 H MCH 33.9 H MCHC 34.4 RDW 17.0 H Plt Count 38 L Seg Neutrophils % Not Reportable Lymphocytes % Not Reportable Monocytes % Not Reportable Eosinophils % Not Reportable Basophils % Not Reportable Absolute Neutrophils Not Reportable Absolute Lymphocytes Not Reportable Absolute Monocytes Not Reportable Absolute Eosinophils Not Reportable Absolute Basophils Not Reportable Sodium Potassium Chloride Carbon Dioxide Anion Gap BUN Creatinine Est GFR ( Amer) Est GFR (Non-Af Amer) Glucose Calcium Total Bilirubin AST ALT Alkaline Phosphatase Total Protein Albumin Impressions: Chest X-Ray 11/08/17 12:23 IMPRESSION: NO ACUTE RADIOGRAPHIC FINDING IN THE CHEST. Assessment & Plan - Diagnosis (1) Sepsis Qualifiers: Sepsis type: sepsis due to unspecified organism Qualified Code(s): A41.9 - Sepsis, unspecified organism Is this a current diagnosis for this admission?: Yes (2) Aspiration pneumonia Qualifiers: Lung location: unspecified part of lung Is this a current diagnosis for this admission?: Yes (3) Diabetes mellitus, type II Qualifiers: Diabetes mellitus complication status: with unspecified complications Diabetes mellitus halfway insulin use: without halfway use Qualified Code( s): E11.8 - Type 2 diabetes mellitus with unspecified complications Is this a current diagnosis for this admission?: Yes (4) Head and neck cancer Is this a current diagnosis for this admission?: Yes (5) Leucopenia Qualifiers: Leukopenia type: unspecified Qualified Code(s): D72.819 - Decreased white blood cell count, unspecified Is this a current diagnosis for this admission?: Yes
--- NOTE | 2017-11-12 15:44 | RADIOLOGY REPORT (SQ) ---
EXAM DESCRIPTION: CT CHEST WITHOUT COMPLETED DATE/TIME: 11/12/2017 3:35 pm REASON FOR STUDY: pneumonia COMPARISON: PET-CT from 08/20/2017 TECHNIQUE: CT scan performed of the chest without intravenous contrast. Images reviewed with lung, soft tissue and bone windows. Reconstructed coronal and sagittal MPR images reviewed. All images st ored on PACS. All CT scanners at this facility use dose modulation, iterative reconstruction, and/or weight based d osing when appropriate to reduce radiation dose to as low as reasonably achievable (ALARA). [facility]: Dose Right [facility]: CareDose [facility]: Dose Right [facility]: Teradose 4D [facility]: MessageGate RADIATION DOSE: CT Rad equipment meets quality standard of care and radiation dose reduction techniq ues were employed. CTDIvol: 7.4 mGy. DLP: 301 mGy-cm. mGy. LIMITATIONS: No technical limitations. FINDINGS: LUNGS AND PLEURA: Minimal dependent subsegmental atelectasis. No masses, at solid, pneumo thorax. No pleural effusions, calcifications. HILAR AND MEDIASTINAL STRUCTURES: No identified masses or abnormal nodes. No obvious aneurysm. HEART AND VASCULAR STRUCTURES: No aneurysm. No pericardial effusion. UPPER ABDOMEN: No significant findings. Limited exam. THYROID AND OTHER SOFT TISSUES: No masses. No adenopathy. BONES: No significant finding. HARDWARE: Right-sided port. Percutaneous gastrostomy tube. OTHER: No other significant findings. IMPRESSION: NO SIGNIFICANT FINDING ON NON-CONTRASTED CHEST CT. NO SIGNIFICANT CHANGE FROM PRIOR CT. TECHNICAL DOCUMENTATION: JOB ID: [id number] Quality ID # [id number]: Final reports with documentation of one or more dose reduction techniques (e.g., Au tomated exposure control, adjustment of the mA and/or kV according to patient size, use of iterative reconstruction technique) 2010 [employer]- All Rights Reserved
[2017-11-12] MEDS: POTASSI CL 20 MEQ/50 ML RIDER 20 MEQ/50 ML RTUPB IV SCH ×2 (16:38→19:34)
[2017-11-12] MEDS: DEXTROSE 50%-WATER 25 GM/50 ML DISP.SYRIN IV PRN (16:59)
[2017-11-12] MEDS: RALTEGRAVIR POTASSIUM 400 MG TABLET PO SCH (21:22)
[2017-11-12] MEDS: TRAZODONE HCL 50 MG TABLET PEG SCH (23:34)
[2017-11-13] MEDS: CEFOTAXIME SODIUM 1 GM in DEXTROSE 5%-WATER 50 ML IV SCH ×3 (06:28→23:34)
[2017-11-13] MEDS: LANSOPRAZOLE 30 MG TAB.RAP.DR PO SCH (06:28)
[2017-11-13] MEDS: METRONIDAZOLE 500 MG/NS RTU 100 ML IV SCH ×3 (06:28→19:02)
[2017-11-13] MEDS: DEXTROSE 50%-WATER 25 GM/50 ML DISP.SYRIN IV PRN (06:32)
[2017-11-13] MEDS: METFORMIN HCL 500 MG TABLET PEG SCH ×2 (07:18→19:03)
[2017-11-13 07:41] LABS: ABSOLUTE LYMPHOCYTES (AUTO) 0.4 10^3/uL (0.5-4.7); ABSOLUTE MONOCYTES (AUTO) 0.3 10^3/uL (0.1-1.4); BASOPHILS % (AUTO) 0.4 % (0-2); EOSINOPHILS % (AUTO) 1.4 % (0-6); HEMATOCRIT 22.5 % (37.9-51.0); LYMPHOCYTES % (AUTO) 15.4 % (13-45); MEAN CORPUSCULAR HEMOGLOBIN 33.6 pg (27.0-33.4); MEAN CORPUSCULAR HGB CONC 34.1 g/dL (32.0-36.0); MEAN CORPUSCULAR VOLUME 98 fl (80-97); MONOCYTES % (AUTO) 9.9 % (3-13); RED BLOOD COUNT 2.28 10^6/uL (4.35-5.55); RED CELL DISTRIBUTION WIDTH 17.2 % (11.5-14.0); SEGMENTED NEUTROPHILS % (AUTO) 72.9 % (42-78); TOTAL CELLS COUNTED % (AUTO) 100 %; WHITE BLOOD COUNT 2.7 10^3/uL (4.0-10.5)
[2017-11-13 07:48] LABS: ALANINE AMINOTRANSFERASE 32 U/L (21-72); ALBUMIN 2.7 g/dL (3.5-5.0); ALKALINE PHOSPHATASE 69 U/L (38-126); ANION GAP 10 (5-19); ASPARTATE AMINO TRANSFERASE 38 U/L (17-59); BILIRUBIN,DIRECT 0.3 mg/dL (0.0-0.4); BILIRUBIN,TOTAL 0.6 mg/dL (0.2-1.3); BLOOD UREA NITROGEN 5 mg/dL (7-20); CALCIUM 8.2 mg/dL (8.4-10.2); CARBON DIOXIDE 23 mmol/L (22-30); CHLORIDE 102 mmol/L (98-107); GLUCOSE 141 mg/dL (75-110); POTASSIUM 3.5 mmol/L (3.6-5.0); SODIUM 134.7 mmol/L (137-145); TOTAL PROTEIN 5.4 g/dL (6.3-8.2)
[2017-11-13 08:09] LABS: PLATELET COUNT 41 10^3/uL (150-450)
[2017-11-13 08:11] LABS: HEMOGLOBIN 7.7 g/dL (13.5-17.0)
[2017-11-13] MEDS: METOPROLOL TARTRATE 50 MG TABLET PEG SCH ×2 (11:01→23:06)
[2017-11-13] MEDS: ATORVASTATIN CALCIUM 10 MG TABLET PEG SCH (11:01)
[2017-11-13] MEDS: PAROXETINE HCL 20 MG TABLET PEG SCH (11:01)
[2017-11-13] MEDS: CETIRIZINE 5 MG TABLET PEG SCH (11:02)
[2017-11-13] MEDS: GABAPENTIN 400 MG CAPSULE PEG SCH ×2 (11:02→23:06)
[2017-11-13] MEDS: LEVETIRACETAM ORAL SOLN 500 MG/5 ML UDCUP GT SCH ×2 (11:02→23:06)
[2017-11-13] MEDS: FLUCONAZOLE 100 MG TABLET PEG SCH (11:03)
[2017-11-13] MEDS: AMLODIPINE BESYLATE 10 MG TABLET PEG SCH (11:03)
[2017-11-13] MEDS: GLIMEPIRIDE 4 MG TABLET PEG SCH (11:04)
[2017-11-13] MEDS: VALSARTAN 160 MG TABLET PEG SCH (11:04)
[2017-11-13] MEDS: RALTEGRAVIR POTASSIUM 400 MG TABLET PO SCH ×2 (11:06→19:03)
--- NOTE | 2017-11-13 12:52 | PDOC PROGRESS REPORT ---
Subjective Progress Note for:: 11/13/17 Subjective:: Patient wants to be DNR status, he had episode of fever with [address] chest was done, it was negative for pneumonia or any acute disease Reason For Visit: HIV/SEPSIS/ASPIRATION INTO AIRWAY Physical Exam Vital Signs: Temp Pulse Resp BP Pulse Ox 101.0 F H 109 H 20 146/80 H 99 11/13/17 11:12 11/13/17 11:12 11/13/17 11:12 11/13/17 11:12 11/13/17 11:12 Intake & Output 11/12/17 11/13/17 11/14/17 06:59 06:59 06:59 Intake Total 62086 1480 Output Total 1175 2800 Balance 9049 -1320 Eye exam: PRESENT: PERRLA Cardiovascular exam: PRESENT: +S1, +S2 GI/Abdominal exam: PRESENT: soft Neurological exam: PRESENT: alert Results Laboratory Results: 11/13/17 06:55 11/13/17 06:55 11/13/17 11/13/17 06:55 06:55 WBC 2.7 L RBC 2.28 L Hgb 7.7 L Hct 22.5 L MCV 98 H MCH 33.6 H MCHC 34.1 RDW 17.2 H Plt Count 41 L Seg Neutrophils % 72.9 Lymphocytes % 15.4 Monocytes % 9.9 Eosinophils % 1.4 Basophils % 0.4 Absolute Neutrophils 2.0 Absolute Lymphocytes 0.4 L Absolute Monocytes 0.3 Absolute Eosinophils 0.0 Absolute Basophils 0.0 Sodium 134.7 L Potassium 3.5 L Chloride 102 Carbon Dioxide 23 Anion Gap 10 BUN 5 L Creatinine 0.53 Est GFR ( Amer) > 60 Est GFR (Non-Af Amer) > 60 Glucose 141 H Calcium 8.2 L Total Bilirubin 0.6 AST 38 ALT 32 Alkaline Phosphatase 69 Total Protein 5.4 L Albumin 2.7 L Impressions: Chest X-Ray 11/08/17 12:23 IMPRESSION: NO ACUTE RADIOGRAPHIC FINDING IN THE CHEST. Chest CT 11/12/17 00:00 IMPRESSION: NO SIGNIFICANT FINDING ON NON-CONTRASTED CHEST CT. NO SIGNIFICANT CHANGE FROM PRIOR CT. Assessment & Plan - Diagnosis (1) Sepsis Qualifiers: Sepsis type: sepsis due to unspecified organism Qualified Code(s): A41.9 - Sepsis, unspecified organism Is this a current diagnosis for this admission?: Yes (2) Aspiration pneumonia Qualifiers: Lung location: unspecified part of lung Is this a current diagnosis for this admission?: Yes (3) Diabetes mellitus, type II Qualifiers: Diabetes mellitus complication status: with unspecified complications Diabetes mellitus senior living insulin use: without senior living use Qualified Code( s): E11.8 - Type 2 diabetes mellitus with unspecified complications Is this a current diagnosis for this admission?: Yes (4) Head and neck cancer Is this a current diagnosis for this admission?: Yes (5) Leucopenia Qualifiers: Leukopenia type: unspecified Qualified Code(s): D72.819 - Decreased white blood cell count, unspecified Is this a current diagnosis for this admission?: Yes (6) Anemia Qualifiers: Anemia type: unspecified type Qualified Code(s): D64.9 - Anemia, unspecified Is this a current diagnosis for this admission?: Yes Plan: Transfuse 2 units of packed red blood cells
[2017-11-13] MEDS ORDERED: NORMAL SALINE 250 ML IV PRN ×2 (12:53)
[2017-11-13] MEDS: ACETAMINOPHEN SOLN 325 MG/10.15 ML UDCUP PEG PRN (15:32)
[2017-11-13] MEDS: TRAZODONE HCL 50 MG TABLET PEG SCH (23:06)
[2017-11-13] MEDS ORDERED: CEFOTAXIME INJ 1 GM VIAL ONE (23:12)
[2017-11-14] MEDS: METRONIDAZOLE 500 MG/NS RTU 100 ML IV SCH ×5 (00:25→23:30)
[2017-11-14] MEDS: LANSOPRAZOLE 30 MG TAB.RAP.DR PO SCH (05:52)
[2017-11-14] MEDS: CEFOTAXIME SODIUM 1 GM in DEXTROSE 5%-WATER 50 ML IV SCH ×3 (05:53→23:31)
[2017-11-14] MEDS: NORMAL SALINE 1000 ML 1,000 ML IV PRN ×3 (05:55→23:31)
[2017-11-14 07:28] LABS: ALANINE AMINOTRANSFERASE 37 U/L (21-72); ALBUMIN 3.3 g/dL (3.5-5.0); ALKALINE PHOSPHATASE 75 U/L (38-126); ANION GAP 9 (5-19); ASPARTATE AMINO TRANSFERASE 44 U/L (17-59); BILIRUBIN,DIRECT 0.4 mg/dL (0.0-0.4); BILIRUBIN,TOTAL 0.7 mg/dL (0.2-1.3); BLOOD UREA NITROGEN 7 mg/dL (7-20); CALCIUM 9.1 mg/dL (8.4-10.2); CARBON DIOXIDE 25 mmol/L (22-30); CHLORIDE 103 mmol/L (98-107); GLUCOSE 91 mg/dL (75-110); HEMATOCRIT 26.2 % (37.9-51.0); HEMOGLOBIN 9.1 g/dL (13.5-17.0); MEAN CORPUSCULAR HEMOGLOBIN 33.8 pg (27.0-33.4); MEAN CORPUSCULAR HGB CONC 34.7 g/dL (32.0-36.0); MEAN CORPUSCULAR VOLUME 98 fl (80-97); POTASSIUM 3.6 mmol/L (3.6-5.0); RED BLOOD COUNT 2.69 10^6/uL (4.35-5.55); RED CELL DISTRIBUTION WIDTH 17.4 % (11.5-14.0); SODIUM 136.8 mmol/L (137-145); TOTAL PROTEIN 6.5 g/dL (6.3-8.2); WHITE BLOOD COUNT 2.6 10^3/uL (4.0-10.5)
[2017-11-14 07:57] LABS: PLATELET COUNT 45 10^3/uL (150-450)
[2017-11-14 08:07] LABS: ABSOLUTE LYMPHOCYTES# (MANUAL) 0.4 10^3/uL (0.5-4.7); ABSOLUTE MONOCYTES # (MANUAL) 0.1 10^3/uL (0.1-1.4); ABSOLUTE NEUTROPHILS# (MANUAL) 2.1 10^3/uL (1.7-8.2); ANISOCYTOSIS 2+; BAND NEUTROPHILS % (MANUAL) 1 % (3-5); BASOPHILS % (MANUAL) 1 % (0-2); EOSINOPHILS % (MANUAL) 0 % (0-6); HYPOCHROMASIA 1+; LYMPHOCYTES % (MANUAL) 14 % (13-45); MONOCYTES % (MANUAL) 4 % (3-13); OVALOCYTES SLIGHT; PLATELET COMMENT DECREASED; POIKILOCYTOSIS SLIGHT; POLYCHROMASIA 1+; SEGMENTED NEUTROPHILS % (MAN) 79 % (42-78); TARGET CELLS SLIGHT; TEAR DROP CELLS SLIGHT; TOTAL CELLS COUNTED 100; TOXIC GRANULATION 2+; TOXIC VACUOLATION PRESENT
[2017-11-14 10:56] LABS: PATH REVIEW PATHOLOGIST REVIEWED
[2017-11-14 11:00] LABS: PATH REVIEW PATHOLOGIST REVIEWED
[2017-11-14] MEDS: FLUCONAZOLE 100 MG TABLET PEG SCH (12:05)
[2017-11-14] MEDS: ACETAMINOPHEN SOLN 325 MG/10.15 ML UDCUP PEG PRN ×2 (12:06→23:52)
[2017-11-14] MEDS: AMLODIPINE BESYLATE 10 MG TABLET PEG SCH (12:06)
[2017-11-14] MEDS: ATORVASTATIN CALCIUM 10 MG TABLET PEG SCH (12:06)
[2017-11-14] MEDS: GABAPENTIN 400 MG CAPSULE PEG SCH ×2 (12:07→23:30)
[2017-11-14] MEDS: METOPROLOL TARTRATE 50 MG TABLET PEG SCH ×2 (12:07→23:31)
[2017-11-14] MEDS: VALSARTAN 160 MG TABLET PEG SCH (12:07)
[2017-11-14] MEDS: PAROXETINE HCL 20 MG TABLET PEG SCH (12:08)
[2017-11-14] MEDS: ENOXAPARIN SODIUM INJ 40 MG/0.4 ML DISP.SYRIN SUBCUT SCH (12:11)
[2017-11-14] MEDS: LEVETIRACETAM ORAL SOLN 500 MG/5 ML UDCUP GT SCH ×2 (12:11→23:31)
[2017-11-14] MEDS: RALTEGRAVIR POTASSIUM 400 MG TABLET PO SCH ×2 (12:11→17:57)
[2017-11-14] MEDS: GLIMEPIRIDE 4 MG TABLET PEG SCH (12:11)
[2017-11-14] MEDS: METFORMIN HCL 500 MG TABLET PEG SCH ×2 (12:11→17:57)
[2017-11-14] MEDS: CETIRIZINE 5 MG TABLET PEG SCH (12:11)
--- NOTE | 2017-11-14 13:55 | PDOC PROGRESS REPORT ---
Subjective Progress Note for:: 11/14/17 Subjective:: Patient is seen by the bedside, he needs to be started on his antiretroviral drug, some of the antiretroviral drug is nonformulary in the hospital. Yesterday he had anemia, he also had fever with a temperature, he was to be transfused yesterday with 2 units of packed red blood cells but because of the fever the transfusion was not given, the hemogram from today's blood work revealed hemoglobin of 9, Reason For Visit: HIV/SEPSIS/ASPIRATION INTO AIRWAY Physical Exam Vital Signs: Temp Pulse Resp BP Pulse Ox 98.7 F 95 22 H 136/75 H 100 11/14/17 08:23 11/14/17 08:23 11/14/17 08:23 11/14/17 08:23 11/14/17 08:23 Intake & Output 11/13/17 11/14/17 11/15/17 06:59 06:59 06:59 Intake Total 1480 3580 Output Total 2800 2400 Balance -1320 1180 General appearance: PRESENT: no acute distress Eye exam: PRESENT: PERRLA Respiratory exam: PRESENT: clear to auscultation melba Cardiovascular exam: PRESENT: +S1, +S2 GI/Abdominal exam: PRESENT: soft Neurological exam: PRESENT: alert Results Laboratory Results: 11/14/17 06:54 11/14/17 06:54 11/13/17 11/14/17 11/14/17 13:12 06:54 06:54 WBC 2.6 L RBC 2.69 L Hgb 9.1 L Hct 26.2 L MCV 98 H MCH 33.8 H MCHC 34.7 RDW 17.4 H Plt Count 45 L Seg Neutrophils % Not Reportable Lymphocytes % Not Reportable Monocytes % Not Reportable Eosinophils % Not Reportable Basophils % Not Reportable Absolute Neutrophils Not Reportable Absolute Lymphocytes Not Reportable Absolute Monocytes Not Reportable Absolute Eosinophils Not Reportable Absolute Basophils Not Reportable Sodium 136.8 L Potassium 3.6 Chloride 103 Carbon Dioxide 25 Anion Gap 9 BUN 7 Creatinine 0.59 Est GFR ( Amer) > 60 Est GFR (Non-Af Amer) > 60 Glucose 91 Calcium 9.1 Total Bilirubin 0.7 AST 44 ALT 37 Alkaline Phosphatase 75 Total Protein 6.5 Albumin 3.3 L Blood Type O POSITIVE Antibody Screen NEGATIVE Impressions: Chest X-Ray 11/08/17 12:23 IMPRESSION: NO ACUTE RADIOGRAPHIC FINDING IN THE CHEST. Chest CT 11/12/17 00:00 IMPRESSION: NO SIGNIFICANT FINDING ON NON-CONTRASTED CHEST CT. NO SIGNIFICANT CHANGE FROM PRIOR CT. 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
[2017-11-14] MEDS ORDERED: NYSTATIN/DEXAMETH/DIPHEN SUSP 120 ML PO PRN (14:12)
[2017-11-14] MEDS: RITONAVIR 100 MG TABLET GT SCH (23:30)
[2017-11-14] MEDS: PREZISTA 600 MG GT SCH (23:30)
[2017-11-14] MEDS: INTELENCE 200 MG GT SCH (23:30)
[2017-11-14] MEDS: TRAZODONE HCL 50 MG TABLET PEG SCH (23:31)
[2017-11-15] MEDS: METRONIDAZOLE 500 MG/NS RTU 100 ML IV SCH ×4 (07:45→23:20)
[2017-11-15] MEDS: CEFOTAXIME SODIUM 1 GM in DEXTROSE 5%-WATER 50 ML IV SCH ×2 (07:46→15:26)
[2017-11-15] MEDS: LANSOPRAZOLE 30 MG TAB.RAP.DR PO SCH (07:55)
[2017-11-15 08:21] LABS: HEMATOCRIT 25.5 % (37.9-51.0); HEMOGLOBIN 8.6 g/dL (13.5-17.0); MEAN CORPUSCULAR HEMOGLOBIN 33.1 pg (27.0-33.4); MEAN CORPUSCULAR HGB CONC 33.7 g/dL (32.0-36.0); MEAN CORPUSCULAR VOLUME 99 fl (80-97); RED BLOOD COUNT 2.59 10^6/uL (4.35-5.55); RED CELL DISTRIBUTION WIDTH 17.8 % (11.5-14.0); WHITE BLOOD COUNT 2.2 10^3/uL (4.0-10.5)
[2017-11-15 08:41] LABS: ALANINE AMINOTRANSFERASE 34 U/L (21-72); ALBUMIN 2.9 g/dL (3.5-5.0); ALKALINE PHOSPHATASE 94 U/L (38-126); ANION GAP 10 (5-19); ASPARTATE AMINO TRANSFERASE 36 U/L (17-59); BILIRUBIN,DIRECT 0.4 mg/dL (0.0-0.4); BILIRUBIN,TOTAL 0.4 mg/dL (0.2-1.3); BLOOD UREA NITROGEN 8 mg/dL (7-20); CALCIUM 8.5 mg/dL (8.4-10.2); CARBON DIOXIDE 23 mmol/L (22-30); CHLORIDE 103 mmol/L (98-107); GLUCOSE 109 mg/dL (75-110); POTASSIUM 3.6 mmol/L (3.6-5.0); SODIUM 135.8 mmol/L (137-145); TOTAL PROTEIN 5.7 g/dL (6.3-8.2)
[2017-11-15 08:48] LABS: PLATELET COUNT 51 10^3/uL (150-450)
[2017-11-15 08:53] LABS: ABSOLUTE LYMPHOCYTES# (MANUAL) 0.5 10^3/uL (0.5-4.7); ABSOLUTE MONOCYTES # (MANUAL) 0.3 10^3/uL (0.1-1.4); ABSOLUTE NEUTROPHILS# (MANUAL) 1.5 10^3/uL (1.7-8.2); BASOPHILS % (MANUAL) 0 % (0-2); EOSINOPHILS % (MANUAL) 0 % (0-6); LYMPHOCYTES % (MANUAL) 21 % (13-45); MONOCYTES % (MANUAL) 12 % (3-13); NUCLEATED RED BLOOD CELLS 1 /100 WBC (0); SEGMENTED NEUTROPHILS % (MAN) 67 % (42-78); TOTAL CELLS COUNTED 100
[2017-11-15 08:56] LABS: ANISOCYTOSIS 1+; PLATELET COMMENT DECREASED; POLYCHROMASIA SLIGHT; TOXIC GRANULATION 1+; TOXIC VACUOLATION PRESENT
[2017-11-15] MEDS: ENOXAPARIN SODIUM INJ 40 MG/0.4 ML DISP.SYRIN SUBCUT SCH (09:09)
[2017-11-15] MEDS: RITONAVIR 100 MG TABLET GT SCH ×2 (09:37→23:19)
[2017-11-15] MEDS: PREZISTA 600 MG GT SCH ×2 (09:37→23:19)
[2017-11-15] MEDS: FLUCONAZOLE 100 MG TABLET PEG SCH (09:38)
[2017-11-15] MEDS: CETIRIZINE 5 MG TABLET PEG SCH (09:38)
[2017-11-15] MEDS: ATORVASTATIN CALCIUM 10 MG TABLET PEG SCH (09:38)
[2017-11-15] MEDS: RALTEGRAVIR POTASSIUM 400 MG TABLET PO SCH ×2 (09:38→17:18)
[2017-11-15] MEDS: METFORMIN HCL 500 MG TABLET PEG SCH ×2 (09:38→17:18)
[2017-11-15] MEDS: AMLODIPINE BESYLATE 10 MG TABLET PEG SCH (09:38)
[2017-11-15] MEDS: INTELENCE 200 MG GT SCH ×2 (09:38→23:18)
[2017-11-15] MEDS: METOPROLOL TARTRATE 50 MG TABLET PEG SCH ×2 (09:39→23:19)
[2017-11-15] MEDS: GLIMEPIRIDE 4 MG TABLET PEG SCH (09:39)
[2017-11-15] MEDS: GABAPENTIN 400 MG CAPSULE PEG SCH ×2 (09:39→23:20)
[2017-11-15] MEDS: VALSARTAN 160 MG TABLET PEG SCH (09:39)
[2017-11-15] MEDS: PAROXETINE HCL 20 MG TABLET PEG SCH (09:39)
[2017-11-15] MEDS: LEVETIRACETAM ORAL SOLN 500 MG/5 ML UDCUP GT SCH ×2 (09:39→23:19)
[2017-11-15] MEDS: ACETAMINOPHEN SOLN 325 MG/10.15 ML UDCUP PEG PRN (09:40)
--- NOTE | 2017-11-15 14:23 | PDOC PROGRESS REPORT ---
Subjective Progress Note for:: 11/15/17 Subjective:: Seen by the bedside, trying to start him back on his antiretroviral medications Reason For Visit: HIV/SEPSIS/ASPIRATION INTO AIRWAY Physical Exam Vital Signs: Temp Pulse Resp BP Pulse Ox 98.8 F 88 14 90/51 L 100 11/15/17 12:00 11/15/17 12:00 11/15/17 12:00 11/15/17 12:00 11/15/17 03:59 Intake & Output 11/14/17 11/15/17 11/16/17 06:59 06:59 06:59 Intake Total 3580 2188 Output Total 2400 750 Balance 1180 1438 General appearance: PRESENT: no acute distress Head exam: PRESENT: atraumatic, normocephalic Eye exam: PRESENT: conjunctiva pink, EOMI, PERRLA Neck exam: PRESENT: full ROM Cardiovascular exam: PRESENT: RRR, +S1, +S2 Vascular exam: PRESENT: normal capillary refill GI/Abdominal exam: PRESENT: normal bowel sounds, soft Rectal exam: PRESENT: deferred Neurological exam: PRESENT: alert. ABSENT: motor sensory deficit Psychiatric exam: PRESENT: appropriate affect, normal mood Skin exam: PRESENT: dry, intact, warm Results Laboratory Results: 11/15/17 07:53 11/15/17 07:53 11/15/17 11/15/17 07:53 07:53 WBC 2.2 L RBC 2.59 L Hgb 8.6 L Hct 25.5 L MCV 99 H MCH 33.1 MCHC 33.7 RDW 17.8 H Plt Count 51 L Seg Neutrophils % Not Reportable Lymphocytes % Not Reportable Monocytes % Not Reportable Eosinophils % Not Reportable Basophils % Not Reportable Absolute Neutrophils Not Reportable Absolute Lymphocytes Not Reportable Absolute Monocytes Not Reportable Absolute Eosinophils Not Reportable Absolute Basophils Not Reportable Sodium 135.8 L Potassium 3.6 Chloride 103 Carbon Dioxide 23 Anion Gap 10 BUN 8 Creatinine 0.59 Est GFR ( Amer) > 60 Est GFR (Non-Af Amer) > 60 Glucose 109 Calcium 8.5 Total Bilirubin 0.4 AST 36 ALT 34 Alkaline Phosphatase 94 Total Protein 5.7 L Albumin 2.9 L Impressions: Chest X-Ray 11/08/17 12:23 IMPRESSION: NO ACUTE RADIOGRAPHIC FINDING IN THE CHEST. Chest CT 11/12/17 00:00 IMPRESSION: NO SIGNIFICANT FINDING ON NON-CONTRASTED CHEST CT. NO SIGNIFICANT CHANGE FROM PRIOR CT. 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: without software quality assurance engineer use Qualified Code( s): E11.8 - Type 2 diabetes mellitus with unspecified complications Is this a current diagnosis for this admission?: Yes (4) Head and neck cancer Is this a current diagnosis for this admission?: Yes (5) Leucopenia Qualifiers: Leukopenia type: unspecified Qualified Code(s): D72.819 - Decreased white blood cell count, unspecified Is this a current diagnosis for this admission?: Yes (6) Anemia Qualifiers: Anemia type: unspecified type Qualified Code(s): D64.9 - Anemia, unspecified Is this a current diagnosis for this admission?: Yes
[2017-11-15] MEDS ORDERED: CEFOTAXIME SODIUM 1 GM in DEXTROSE 5%-WATER 50 ML IV ONE (16:00)
[2017-11-15] MEDS: TRAZODONE HCL 50 MG TABLET PEG SCH (23:20)
[2017-11-15] MEDS: ONDANSETRON HCL 8 MG TABLET PEG PRN (23:20)
[2017-11-15] MEDS: DEXTROSE 50%-WATER 25 GM/50 ML DISP.SYRIN IV PRN (23:50)
[2017-11-16] MEDS: LANSOPRAZOLE 30 MG TAB.RAP.DR PO SCH (06:05)
[2017-11-16 07:41] LABS: HEMATOCRIT 25.1 % (37.9-51.0); HEMOGLOBIN 8.4 g/dL (13.5-17.0); MEAN CORPUSCULAR HEMOGLOBIN 33.3 pg (27.0-33.4); MEAN CORPUSCULAR HGB CONC 33.4 g/dL (32.0-36.0); MEAN CORPUSCULAR VOLUME 100 fl (80-97); RED BLOOD COUNT 2.52 10^6/uL (4.35-5.55); RED CELL DISTRIBUTION WIDTH 18.5 % (11.5-14.0); WHITE BLOOD COUNT 2.9 10^3/uL (4.0-10.5)
[2017-11-16 07:55] LABS: ALANINE AMINOTRANSFERASE 34 U/L (21-72); ALKALINE PHOSPHATASE 160 U/L (38-126); ANION GAP 10 (5-19); ASPARTATE AMINO TRANSFERASE 44 U/L (17-59); BILIRUBIN,DIRECT 0.4 mg/dL (0.0-0.4); BILIRUBIN,TOTAL 0.4 mg/dL (0.2-1.3); BLOOD UREA NITROGEN 8 mg/dL (7-20); CALCIUM 8.9 mg/dL (8.4-10.2); CARBON DIOXIDE 23 mmol/L (22-30); CHLORIDE 104 mmol/L (98-107); GLUCOSE 92 mg/dL (75-110); POTASSIUM 3.7 mmol/L (3.6-5.0); TOTAL PROTEIN 6.1 g/dL (6.3-8.2)
[2017-11-16 08:03] LABS: PLATELET COUNT 55 10^3/uL (150-450)
[2017-11-16 08:06] LABS: ABSOLUTE LYMPHOCYTES# (MANUAL) 0.8 10^3/uL (0.5-4.7); ABSOLUTE MONOCYTES # (MANUAL) 0.2 10^3/uL (0.1-1.4); ABSOLUTE NEUTROPHILS# (MANUAL) 1.8 10^3/uL (1.7-8.2); ANISOCYTOSIS 2+; BAND NEUTROPHILS % (MANUAL) 1 % (3-5); BASOPHILS % (MANUAL) 0 % (0-2); EOSINOPHILS % (MANUAL) 1 % (0-6); HYPOCHROMASIA SLIGHT; LYMPHOCYTES % (MANUAL) 23 % (13-45); MONOCYTES % (MANUAL) 8 % (3-13); PLATELET COMMENT DECREASED; PLATELET LARGE PRESENT; POIKILOCYTOSIS SLIGHT; POLYCHROMASIA SLIGHT; ROULEAUX SLIGHT; SCHISTOCYTES SLIGHT; SEGMENTED NEUTROPHILS % (MAN) 62 % (42-78); TOTAL CELLS COUNTED 100; TOXIC GRANULATION 2+; TOXIC VACUOLATION PRESENT
[2017-11-16] MEDS: VALSARTAN 160 MG TABLET PEG SCH (09:08)
[2017-11-16] MEDS: GABAPENTIN 400 MG CAPSULE PEG SCH ×2 (09:09→21:59)
[2017-11-16] MEDS: RITONAVIR 100 MG TABLET GT SCH ×2 (09:09→22:00)
[2017-11-16] MEDS: CETIRIZINE 5 MG TABLET PEG SCH (09:09)
[2017-11-16] MEDS: INTELENCE 200 MG GT SCH ×2 (09:09→22:00)
[2017-11-16] MEDS: RALTEGRAVIR POTASSIUM 400 MG TABLET PO SCH ×2 (09:09→18:17)
[2017-11-16] MEDS: METFORMIN HCL 500 MG TABLET PEG SCH ×2 (09:10→16:44)
[2017-11-16] MEDS: AMLODIPINE BESYLATE 10 MG TABLET PEG SCH (09:10)
[2017-11-16] MEDS: GLIMEPIRIDE 4 MG TABLET PEG SCH (09:10)
[2017-11-16] MEDS: METOPROLOL TARTRATE 50 MG TABLET PEG SCH ×2 (09:11→21:54)
[2017-11-16] MEDS: PAROXETINE HCL 20 MG TABLET PEG SCH (09:11)
[2017-11-16] MEDS: ATORVASTATIN CALCIUM 10 MG TABLET PEG SCH (09:11)
[2017-11-16] MEDS: ENOXAPARIN SODIUM INJ 40 MG/0.4 ML DISP.SYRIN SUBCUT SCH (09:12)
[2017-11-16] MEDS: PREZISTA 600 MG GT SCH ×2 (09:44→21:54)
[2017-11-16] MEDS: LEVETIRACETAM ORAL SOLN 500 MG/5 ML UDCUP GT SCH ×2 (11:35→21:54)
[2017-11-16] MEDS: DEXTROSE 50%-WATER 25 GM/50 ML DISP.SYRIN IV PRN ×2 (11:50→16:42)
--- NOTE | 2017-11-16 20:27 | PDOC PROGRESS REPORT ---
Subjective Progress Note for:: 11/16/17 Subjective:: Patient had episode of hypoglycemia today he was asymptomatic, was giving boluses of 50% glucose intravenously and also encouraged to have high carb meal Reason For Visit: HIV/SEPSIS/ASPIRATION INTO AIRWAY Physical Exam Vital Signs: Temp Pulse Resp BP Pulse Ox 98.3 F 107 H 18 111/72 94 11/16/17 16:00 11/16/17 19:00 11/16/17 16:00 11/16/17 16:00 11/16/17 16:00 Intake & Output 11/15/17 11/16/17 11/17/17 06:59 06:59 06:59 Intake Total 2188 2650 2930 Output Total 750 910 Balance 1438 1740 2930 General appearance: PRESENT: no acute distress Eye exam: PRESENT: PERRLA Respiratory exam: PRESENT: clear to auscultation melba Cardiovascular exam: PRESENT: +S1, +S2 Results Laboratory Results: 11/16/17 07:00 11/16/17 07:00 11/16/17 11/16/17 07:00 07:00 WBC 2.9 L RBC 2.52 L Hgb 8.4 L Hct 25.1 L MCV 100 H MCH 33.3 MCHC 33.4 RDW 18.5 H Plt Count 55 L Seg Neutrophils % Not Reportable Lymphocytes % Not Reportable Monocytes % Not Reportable Eosinophils % Not Reportable Basophils % Not Reportable Absolute Neutrophils Not Reportable Absolute Lymphocytes Not Reportable Absolute Monocytes Not Reportable Absolute Eosinophils Not Reportable Absolute Basophils Not Reportable Sodium 137.0 Potassium 3.7 Chloride 104 Carbon Dioxide 23 Anion Gap 10 BUN 8 Creatinine 0.55 Est GFR ( Amer) > 60 Est GFR (Non-Af Amer) > 60 Glucose 92 Calcium 8.9 Total Bilirubin 0.4 AST 44 ALT 34 Alkaline Phosphatase 160 H Total Protein 6.1 L Albumin 3.0 L Impressions: Chest X-Ray 11/08/17 12:23 IMPRESSION: NO ACUTE RADIOGRAPHIC FINDING IN THE CHEST. Chest CT 11/12/17 00:00 IMPRESSION: NO SIGNIFICANT FINDING ON NON-CONTRASTED CHEST CT. NO SIGNIFICANT CHANGE FROM PRIOR CT. Assessment & Plan - Diagnosis (1) Sepsis Qualifiers: Sepsis type: sepsis due to unspecified organism Qualified Code(s): A41.9 - Sepsis, unspecified organism Is this a current diagnosis for this admission?: Yes (2) Aspiration pneumonia Qualifiers: Lung location: unspecified part of lung Is this a current diagnosis for this admission?: Yes (3) Diabetes mellitus, type II Qualifiers: Diabetes mellitus complication status: with unspecified complications Diabetes mellitus fci insulin use: without fci use Qualified Code( s): E11.8 - Type 2 diabetes mellitus with unspecified complications Is this a current diagnosis for this admission?: Yes (4) Head and neck cancer Is this a current diagnosis for this admission?: Yes (5) Leucopenia Qualifiers: Leukopenia type: unspecified Qualified Code(s): D72.819 - Decreased white blood cell count, unspecified Is this a current diagnosis for this admission?: Yes (6) Anemia Qualifiers: Anemia type: unspecified type Qualified Code(s): D64.9 - Anemia, unspecified Is this a current diagnosis for this admission?: Yes
[2017-11-16] MEDS: TRAZODONE HCL 50 MG TABLET PEG SCH (21:59)
[2017-11-16] MEDS: NORMAL SALINE 1000 ML 1,000 ML IV PRN (21:59)
[2017-11-16] MEDS: ACETAMINOPHEN SOLN 325 MG/10.15 ML UDCUP PEG PRN (22:00)
[2017-11-16] MEDS: ONDANSETRON HCL 8 MG TABLET PEG PRN (22:00)
[2017-11-17] MEDS ORDERED: NORMAL SALINE 1000 ML 1,000 ML IV ONE (00:15)
--- NOTE | 2017-11-17 00:49 | RADIOLOGY REPORT (SQ) ---
EXAM DESCRIPTION: CT HEAD WITHOUT CLINICAL HISTORY: altered mental status COMPARISON: 08/28/2017 TECHNIQUE: Axial CT of the head obtained from the skull apex to the skull base without contrast. FINDINGS: No acute intracranial hemorrhage identified. No mass, mass effect, shift of the midline, abnormal extra-axial fluid collection or CT evidence of acute ischemic change identified. The ventricular system and sulcal spaces are mildly enlarged compatible with mild cerebral atrophy. Scattered areas of hypodensity throughout the supratentorial white matter are nonspecific and may be related to chronic small vessel ischemic change. Encephalomalacia in the posterior right MCA distribution. Remote likely lacunar type infarction involving the left cerebellum is also stable. The visualized paranasal sinuses and the mastoids are clear. No skull fracture identified. Visualized orbits and globes are unremarkable. Atherosclerotic calcification of the intracranial internal carotid arteries. DLP: 1316.28 mGy-cm IMPRESSION: 1. No acute intracranial abnormality by CT criteria. 2. 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 This exam was performed according to our departmental dose-optimization program, which includes automated exposure control, adjustment of the mA and/or kV according to patient size and/or use of iterative reconstruction technique.
[2017-11-17] MEDS: ACETAMINOPHEN SOLN 325 MG/10.15 ML UDCUP PEG PRN ×2 (02:16→12:04)
[2017-11-17] MEDS: NORMAL SALINE 1000 ML 1,000 ML IV PRN ×3 (02:17→14:03)
[2017-11-17] MEDS: LANSOPRAZOLE 30 MG TAB.RAP.DR PO SCH (05:57)
[2017-11-17] MEDS: DEXTROSE 50%-WATER 25 GM/50 ML DISP.SYRIN IV PRN (05:58)
[2017-11-17 07:24] LABS: ALANINE AMINOTRANSFERASE 31 U/L (21-72); ALKALINE PHOSPHATASE 127 U/L (38-126); ANION GAP 10 (5-19); ASPARTATE AMINO TRANSFERASE 49 U/L (17-59); BILIRUBIN,DIRECT 0.5 mg/dL (0.0-0.4); BILIRUBIN,TOTAL 0.6 mg/dL (0.2-1.3); BLOOD UREA NITROGEN 6 mg/dL (7-20); CARBON DIOXIDE 24 mmol/L (22-30); CHLORIDE 110 mmol/L (98-107); GLUCOSE 132 mg/dL (75-110); HEMATOCRIT 27.9 % (37.9-51.0); HEMOGLOBIN 9.5 g/dL (13.5-17.0); MEAN CORPUSCULAR HEMOGLOBIN 33.3 pg (27.0-33.4); MEAN CORPUSCULAR HGB CONC 33.9 g/dL (32.0-36.0); MEAN CORPUSCULAR VOLUME 98 fl (80-97); POTASSIUM 3.7 mmol/L (3.6-5.0); RED BLOOD COUNT 2.84 10^6/uL (4.35-5.55); RED CELL DISTRIBUTION WIDTH 17.9 % (11.5-14.0); SODIUM 144.2 mmol/L (137-145); TOTAL PROTEIN 6.6 g/dL (6.3-8.2); WHITE BLOOD COUNT 4.6 10^3/uL (4.0-10.5)
[2017-11-17] MEDS: METFORMIN HCL 500 MG TABLET PEG SCH ×2 (07:59→17:38)
[2017-11-17 08:08] LABS: PLATELET COUNT 49 10^3/uL (150-450)
[2017-11-17 08:12] LABS: ABSOLUTE LYMPHOCYTES# (MANUAL) 2.1 10^3/uL (0.5-4.7); ABSOLUTE MONOCYTES # (MANUAL) 0.6 10^3/uL (0.1-1.4); ABSOLUTE NEUTROPHILS# (MANUAL) 1.8 10^3/uL (1.7-8.2); BASOPHILS % (MANUAL) 0 % (0-2); EOSINOPHILS % (MANUAL) 1 % (0-6); LYMPHOCYTES % (MANUAL) 34 % (13-45); MONOCYTES % (MANUAL) 14 % (3-13); PLATELET COMMENT DECREASED; SEGMENTED NEUTROPHILS % (MAN) 39 % (42-78); TOTAL CELLS COUNTED 100
[2017-11-17 08:13] LABS: ANISOCYTOSIS 2+; OVALOCYTES SLIGHT; POIKILOCYTOSIS SLIGHT; POLYCHROMASIA SLIGHT; TOXIC GRANULATION 1+; TOXIC VACUOLATION PRESENT
[2017-11-17 08:14] LABS: HYPOCHROMASIA SLIGHT
[2017-11-17] MEDS: METOPROLOL TARTRATE 50 MG TABLET PEG SCH ×2 (09:21→21:17)
[2017-11-17] MEDS: AMLODIPINE BESYLATE 10 MG TABLET PEG SCH (09:21)
[2017-11-17] MEDS: GABAPENTIN 400 MG CAPSULE PEG SCH ×2 (09:22→21:17)
[2017-11-17] MEDS: VALSARTAN 160 MG TABLET PEG SCH (09:22)
[2017-11-17] MEDS: PAROXETINE HCL 20 MG TABLET PEG SCH (09:22)
[2017-11-17] MEDS: ATORVASTATIN CALCIUM 10 MG TABLET PEG SCH (09:22)
[2017-11-17] MEDS: LEVETIRACETAM ORAL SOLN 500 MG/5 ML UDCUP GT SCH ×2 (09:22→21:16)
[2017-11-17] MEDS: RALTEGRAVIR POTASSIUM 400 MG TABLET PO SCH ×2 (09:23→18:02)
[2017-11-17] MEDS: CETIRIZINE 5 MG TABLET PEG SCH (09:23)
[2017-11-17] MEDS: RITONAVIR 100 MG TABLET GT SCH ×2 (09:23→21:17)
[2017-11-17] MEDS: ENOXAPARIN SODIUM INJ 40 MG/0.4 ML DISP.SYRIN SUBCUT SCH (09:24)
[2017-11-17 11:55] LABS: PATH REVIEW PATHOLOGIST REVIEWED
[2017-11-17] MEDS: PREZISTA 600 MG GT SCH ×2 (12:24→21:16)
[2017-11-17] MEDS: INTELENCE 200 MG GT SCH ×2 (12:25→21:16)
--- NOTE | 2017-11-17 18:22 | PDOC PROGRESS REPORT ---
Subjective Progress Note for:: 11/17/17 Subjective:: I was called last night by the nursing staff the patient blood pressure was low and that he was not responsive, he was given a bolus of normal saline, 500 cc with bahai of blood pressure, a stat CT head was done there was no acute pathology, he has old CVA, he was transferred to intermediate care unit for close monitoring. He was seen in the unit, patient is awake oriented feeling much better. The anti-retroviral agents just available for patient to use. Will discontinue Osman catheter, transfer patient back to medical floor, encourage ambulation and could be discharged home in a day or 2. He has head and neck cancer, not sure of the specific type Reason For Visit: HIV/SEPSIS Physical Exam Vital Signs: Temp Pulse Resp BP Pulse Ox 98.5 F 88 18 103/70 88 L 11/17/17 16:00 11/17/17 16:00 11/17/17 16:00 11/17/17 16:00 11/17/17 16:00 Intake & Output 11/16/17 11/17/17 11/18/17 06:59 06:59 06:59 Intake Total 2650 4495 Output Total 910 2000 1200 Balance 1740 2495 -1200 General appearance: PRESENT: no acute distress Eye exam: PRESENT: PERRLA Cardiovascular exam: PRESENT: +S1, +S2 GI/Abdominal exam: PRESENT: soft Neurological exam: PRESENT: alert Results Laboratory Results: 11/17/17 06:56 11/17/17 06:56 11/17/17 11/17/17 06:56 06:56 WBC 4.6 RBC 2.84 L Hgb 9.5 L Hct 27.9 L MCV 98 H MCH 33.3 MCHC 33.9 RDW 17.9 H Plt Count 49 L Seg Neutrophils % Not Reportable Lymphocytes % Not Reportable Monocytes % Not Reportable Eosinophils % Not Reportable Basophils % Not Reportable Absolute Neutrophils Not Reportable Absolute Lymphocytes Not Reportable Absolute Monocytes Not Reportable Absolute Eosinophils Not Reportable Absolute Basophils Not Reportable Sodium 144.2 Potassium 3.7 Chloride 110 H Carbon Dioxide 24 Anion Gap 10 BUN 6 L Creatinine 0.61 Est GFR ( Amer) > 60 Est GFR (Non-Af Amer) > 60 Glucose 132 H Calcium 9.0 Total Bilirubin 0.6 AST 49 ALT 31 Alkaline Phosphatase 127 H Total Protein 6.6 Albumin 3.0 L Impressions: Chest X-Ray 11/08/17 12:23 IMPRESSION: NO ACUTE RADIOGRAPHIC FINDING IN THE CHEST. Chest CT 11/12/17 00:00 IMPRESSION: NO SIGNIFICANT FINDING ON NON-CONTRASTED CHEST CT. NO SIGNIFICANT CHANGE FROM PRIOR CT. Head CT 11/17/17 00:00 IMPRESSION: 1. No acute intracranial abnormality by CT criteria. 2. 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 This exam was performed according to our departmental dose-optimization program, which includes automated exposure control, adjustment of the mA and/or kV according to patient size and/or use of iterative reconstruction technique. Assessment & Plan - Diagnosis (1) Sepsis Qualifiers: Sepsis type: sepsis due to unspecified organism Qualified Code(s): A41.9 - Sepsis, unspecified organism Is this a current diagnosis for this admission?: Yes (2) Aspiration pneumonia Qualifiers: Lung location: unspecified part of lung Is this a current diagnosis for this admission?: Yes (3) Diabetes mellitus, type II Qualifiers: Diabetes mellitus complication status: with unspecified complications Diabetes mellitus jail insulin use: without jail use Qualified Code( s): E11.8 - Type 2 diabetes mellitus with unspecified complications Is this a current diagnosis for this admission?: Yes (4) Head and neck cancer Is this a current diagnosis for this admission?: Yes (5) Leucopenia Qualifiers: Leukopenia type: unspecified Qualified Code(s): D72.819 - Decreased white blood cell count, unspecified Is this a current diagnosis for this admission?: Yes (6) Anemia Qualifiers: Anemia type: unspecified type Qualified Code(s): D64.9 - Anemia, unspecified Is this a current diagnosis for this admission?: Yes (7) Hypotension Qualifiers: Hypotension type: unspecified hypotension type Qualified Code(s): I95.9 - Hypotension, unspecified Is this a current diagnosis for this admission?: Yes (8) Hypoglycemia Is this a current diagnosis for this admission?: Yes - Plan Summary Plan Summary: Continue hydration, continue all treatment
[2017-11-17] MEDS: TRAZODONE HCL 50 MG TABLET PEG SCH (21:16)
[2017-11-18] MEDS: LANSOPRAZOLE 30 MG TAB.RAP.DR PO SCH (06:46)
[2017-11-18] MEDS ORDERED: NOREPINEPHRINE BITARTRATE INJ/PF 4 MG/4 ML SDV IV ONE (07:32)
[2017-11-18] MEDS: METFORMIN HCL 500 MG TABLET PEG SCH ×2 (08:16→15:10)
[2017-11-18] MEDS: ENOXAPARIN SODIUM INJ 40 MG/0.4 ML DISP.SYRIN SUBCUT SCH (09:22)
[2017-11-18] MEDS: RITONAVIR 100 MG TABLET GT SCH ×2 (09:49→21:16)
[2017-11-18] MEDS: RALTEGRAVIR POTASSIUM 400 MG TABLET PO SCH ×2 (09:49→17:17)
[2017-11-18] MEDS: LEVETIRACETAM ORAL SOLN 500 MG/5 ML UDCUP GT SCH ×2 (09:49→21:16)
[2017-11-18] MEDS: METOPROLOL TARTRATE 50 MG TABLET PEG SCH ×2 (09:50→21:16)
[2017-11-18] MEDS: GABAPENTIN 400 MG CAPSULE PEG SCH ×2 (09:50→21:17)
[2017-11-18] MEDS: PAROXETINE HCL 20 MG TABLET PEG SCH (09:50)
[2017-11-18] MEDS: VALSARTAN 160 MG TABLET PEG SCH (09:50)
[2017-11-18] MEDS: CETIRIZINE 5 MG TABLET PEG SCH (09:50)
[2017-11-18] MEDS: PREZISTA 600 MG GT SCH ×2 (09:50→21:16)
[2017-11-18] MEDS: INTELENCE 200 MG GT SCH ×2 (09:50→21:16)
[2017-11-18] MEDS: AMLODIPINE BESYLATE 10 MG TABLET PEG SCH (09:50)
[2017-11-18] MEDS: ATORVASTATIN CALCIUM 10 MG TABLET PEG SCH (09:50)
[2017-11-18] MEDS: NORMAL SALINE 1000 ML 1,000 ML IV PRN ×2 (09:52→21:17)
--- NOTE | 2017-11-18 10:57 | PDOC PROGRESS REPORT ---
Subjective Progress Note for:: 11/18/17 Subjective:: The patient expressed desire for oral feeding. I had extensive discussion with him and sister at bedside regarding high risk of aspiration and continue need for radiation therapy upon discharge. he denied any chest pain. No vomiting. He reported sneezing ad allergy symptoms with coughing. No reported fever or chills. His vitals remain stable since transfer to ICU. He remain on IV fluid support and PEG tube feeding. He is agreeable to short term rehabilitation placement upon discharge Reason For Visit: HIV/SEPSIS Physical Exam Vital Signs: Temp Pulse Resp BP Pulse Ox 97.1 F 112 H 18 118/81 100 11/18/17 07:42 11/18/17 07:42 11/18/17 07:42 11/18/17 07:42 11/18/17 07:42 Intake & Output 11/17/17 11/18/17 11/19/17 06:59 06:59 06:59 Intake Total 4495 3109 188 Output Total 1999 2150 50 Balance 2495 959 138 Weight 64.5 kg General appearance: PRESENT: no acute distress, well-developed, well-nourished Head exam: PRESENT: atraumatic, normocephalic Mouth exam: PRESENT: moist Teeth exam: PRESENT: poor dentation Respiratory exam: PRESENT: clear to auscultation melba, decreased breath sounds - at lung bases Cardiovascular exam: PRESENT: RRR. ABSENT: diastolic murmur, rubs, systolic murmur GI/Abdominal exam: PRESENT: normal bowel sounds, soft, other - PEG tube site is satisfactory.. ABSENT: distended, guarding, mass, organolmegaly, rebound, tenderness Extremities exam: ABSENT: pedal edema Neurological exam: PRESENT: alert, awake, oriented to person, oriented to place , oriented to time, oriented to situation, CN II-XII grossly intact. ABSENT: motor sensory deficit Psychiatric exam: PRESENT: appropriate affect, normal mood. ABSENT: homicidal ideation, suicidal ideation Skin exam: PRESENT: dry, rash - radiation dermatitis changes aroung neck region , warm. ABSENT: cyanosis Results Laboratory Results: 11/17/17 06:56 11/17/17 06:56 Impressions: Chest X-Ray 11/08/17 12:23 IMPRESSION: NO ACUTE RADIOGRAPHIC FINDING IN THE CHEST. Chest CT 11/12/17 00:00 IMPRESSION: NO SIGNIFICANT FINDING ON NON-CONTRASTED CHEST CT. NO SIGNIFICANT CHANGE FROM PRIOR CT. Head CT 11/17/17 00:00 IMPRESSION: 1. No acute intracranial abnormality by CT criteria. 2. 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 This exam was performed according to our departmental dose-optimization program, which includes automated exposure control, adjustment of the mA and/or kV according to patient size and/or use of iterative reconstruction technique. Assessment & Plan - Diagnosis (1) Aspiration pneumonitis Is this a current diagnosis for this admission?: Yes (2) Aspiration pneumonia Qualifiers: Lung location: unspecified part of lung Is this a current diagnosis for this admission?: Yes (3) Failure of outpatient treatment Is this a current diagnosis for this admission?: Yes (4) Head and neck cancer Is this a current diagnosis for this admission?: Yes (5) Diabetes mellitus, type II Qualifiers: Diabetes mellitus complication status: with unspecified complications Diabetes mellitus detention insulin use: without detention use Qualified Code( s): E11.8 - Type 2 diabetes mellitus with unspecified complications Is this a current diagnosis for this admission?: Yes (6) HIV (human immunodeficiency virus infection) Is this a current diagnosis for this admission?: Yes (7) Hypertension Qualifiers: Hypertension type: essential hypertension Qualified Code(s): I10 - Essential (primary) hypertension Is this a current diagnosis for this admission?: Yes (8) CAD (coronary artery disease), [place] coronary artery Qualifiers: [place] vs. transplanted heart: [place] heart Associated angina: without angina Qualified Code(s): I25.10 - Atherosclerotic heart disease of [place] coronary artery without angina pectoris Is this a current diagnosis for this admission?: Yes (9) Hyperlipidemia Qualifiers: Hyperlipidemia type: pure hypercholesterolemia Qualified Code(s): E78.00 - Pure hypercholesterolemia, unspecified; E78.0 - Pure hypercholesterolemia Is this a current diagnosis for this admission?: Yes (10) Seizures, generalized convulsive Is this a current diagnosis for this admission?: Yes (11) Chronic pain syndrome Is this a current diagnosis for this admission?: Yes (12) Anemia of chronic disease Is this a current diagnosis for this admission?: Yes Plan: See attending physician orders. (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 Is this a current diagnosis for this admission?: Yes Plan: See attending physician orders. - Time Time Spent with patient: 35 or more minutes Medications reviewed and adjusted accordingly: Yes Anticipated discharge: SNF - for short term rehabilitation - Inpatient Certification Based on my medical assessment, after consideration of the patient's comorbidities, presenting symptoms, or acuity I expect that the services needed warrant INPATIENT care.: Yes I certify that my determination is in accordance with my understanding of Medicare's requirements for reasonable and necessary INPATIENT services [42 CFR 412.3e].: Yes Medical Necessity: Need Close Monitoring Due to Risk of Patient Decompensation, Need For IV Fluids, Risk of Complication if Not Cared For in Hospital Post Hospital Care: D/C or Transfer Summary - Plan Summary Plan Summary: See attending physician orders. we will start looking into SNF short term rehabilitation placement. Follow up on transfer to medical floor.
[2017-11-18 14:41] LABS: HEMATOCRIT 24.9 % (37.9-51.0); HEMOGLOBIN 8.4 g/dL (13.5-17.0); MEAN CORPUSCULAR HGB CONC 33.7 g/dL (32.0-36.0); MEAN CORPUSCULAR VOLUME 98 fl (80-97); RED BLOOD COUNT 2.54 10^6/uL (4.35-5.55)
[2017-11-18 14:42] LABS: ABSOLUTE EOSINOPHILS # (AUTO) 0.1 10^3/uL (0.0-0.6); ABSOLUTE LYMPHOCYTES (AUTO) 1.3 10^3/uL (0.5-4.7); ABSOLUTE MONOCYTES (AUTO) 0.7 10^3/uL (0.1-1.4); ABSOLUTE NEUT (AUTO) 1.9 10^3/uL (1.7-8.2); BASOPHILS % (AUTO) 0.5 % (0-2); EOSINOPHILS % (AUTO) 1.7 % (0-6); LYMPHOCYTES % (AUTO) 33.1 % (13-45); MONOCYTES % (AUTO) 16.9 % (3-13); SEGMENTED NEUTROPHILS % (AUTO) 47.8 % (42-78); TOTAL CELLS COUNTED % (AUTO) 100 %
[2017-11-18 14:48] LABS: PLATELET COUNT 55 10^3/uL (150-450)
[2017-11-18 16:33] LABS: ALANINE AMINOTRANSFERASE 38 U/L (21-72); ALBUMIN 2.9 g/dL (3.5-5.0); ALKALINE PHOSPHATASE 87 U/L (38-126); ANION GAP 7 (5-19); ASPARTATE AMINO TRANSFERASE 59 U/L (17-59); BILIRUBIN,DIRECT 0.5 mg/dL (0.0-0.4); BILIRUBIN,TOTAL 0.6 mg/dL (0.2-1.3); BLOOD UREA NITROGEN 7 mg/dL (7-20); CALCIUM 8.8 mg/dL (8.4-10.2); CARBON DIOXIDE 25 mmol/L (22-30); CHLORIDE 108 mmol/L (98-107); GLUCOSE 109 mg/dL (75-110); POTASSIUM 3.6 mmol/L (3.6-5.0); SODIUM 139.5 mmol/L (137-145); TOTAL PROTEIN 6.1 g/dL (6.3-8.2)
[2017-11-18] MEDS: TRAZODONE HCL 50 MG TABLET PEG SCH (21:16)
[2017-11-19 07:33] LABS: HEMATOCRIT 24.5 % (37.9-51.0); HEMOGLOBIN 8.2 g/dL (13.5-17.0); MEAN CORPUSCULAR HEMOGLOBIN 33.2 pg (27.0-33.4); MEAN CORPUSCULAR HGB CONC 33.3 g/dL (32.0-36.0); MEAN CORPUSCULAR VOLUME 100 fl (80-97); RED BLOOD COUNT 2.46 10^6/uL (4.35-5.55); RED CELL DISTRIBUTION WIDTH 17.9 % (11.5-14.0)
[2017-11-19 07:35] LABS: WHITE BLOOD COUNT 2.6 10^3/uL (4.0-10.5)
[2017-11-19 07:48] LABS: ALANINE AMINOTRANSFERASE 39 U/L (21-72); ALBUMIN 2.9 g/dL (3.5-5.0); ALKALINE PHOSPHATASE 85 U/L (38-126); ANION GAP 8 (5-19); ASPARTATE AMINO TRANSFERASE 71 U/L (17-59); BILIRUBIN,DIRECT 0.5 mg/dL (0.0-0.4); BILIRUBIN,TOTAL 0.7 mg/dL (0.2-1.3); BLOOD UREA NITROGEN 7 mg/dL (7-20); CALCIUM 9.1 mg/dL (8.4-10.2); CARBON DIOXIDE 25 mmol/L (22-30); CHLORIDE 109 mmol/L (98-107); GLUCOSE 80 mg/dL (75-110); POTASSIUM 3.4 mmol/L (3.6-5.0); SODIUM 142.4 mmol/L (137-145); TOTAL PROTEIN 6.1 g/dL (6.3-8.2)
[2017-11-19 08:25] LABS: ABSOLUTE LYMPHOCYTES# (MANUAL) 0.8 10^3/uL (0.5-4.7); ABSOLUTE MONOCYTES # (MANUAL) 0.3 10^3/uL (0.1-1.4); ABSOLUTE NEUTROPHILS# (MANUAL) 1.4 10^3/uL (1.7-8.2); BAND NEUTROPHILS % (MANUAL) 4 % (3-5); BASOPHILS % (MANUAL) 0 % (0-2); EOSINOPHILS % (MANUAL) 3 % (0-6); LYMPHOCYTES % (MANUAL) 29 % (13-45); METAMYELOCYTES % (MANUAL) 2 % (0); MONOCYTES % (MANUAL) 11 % (3-13); SEGMENTED NEUTROPHILS % (MAN) 49 % (42-78); TOTAL CELLS COUNTED 100
[2017-11-19 08:29] LABS: ANISOCYTOSIS 2+; TOXIC GRANULATION 2+
[2017-11-19 08:30] LABS: OVALOCYTES SLIGHT; PLATELET COMMENT DECREASED; PLATELET GIANT PRESENT; PLATELET LARGE PRESENT; POIKILOCYTOSIS 1+; SCHISTOCYTES SLIGHT; TEAR DROP CELLS SLIGHT
[2017-11-19 08:34] LABS: PLATELET COUNT 52 10^3/uL (150-450)
[2017-11-19] MEDS: LANSOPRAZOLE 30 MG TAB.RAP.DR PO SCH (08:49)
[2017-11-19] MEDS: METFORMIN HCL 500 MG TABLET PEG SCH ×2 (08:49→15:59)
[2017-11-19] MEDS: CETIRIZINE 5 MG TABLET PEG SCH (10:39)
[2017-11-19] MEDS: GABAPENTIN 400 MG CAPSULE PEG SCH ×2 (10:40→21:29)
[2017-11-19] MEDS: PAROXETINE HCL 20 MG TABLET PEG SCH (10:41)
[2017-11-19] MEDS: RITONAVIR 100 MG TABLET GT SCH ×2 (10:42→21:29)
[2017-11-19] MEDS: LEVETIRACETAM ORAL SOLN 500 MG/5 ML UDCUP GT SCH ×2 (10:42→21:29)
[2017-11-19] MEDS: INTELENCE 200 MG GT SCH ×2 (10:43→21:28)
[2017-11-19] MEDS: PREZISTA 600 MG GT SCH ×2 (10:43→21:28)
[2017-11-19] MEDS: METOPROLOL TARTRATE 50 MG TABLET PEG SCH ×2 (10:45→21:29)
[2017-11-19] MEDS: ENOXAPARIN SODIUM INJ 40 MG/0.4 ML DISP.SYRIN SUBCUT SCH (10:47)
[2017-11-19] MEDS: VALSARTAN 160 MG TABLET PEG SCH (11:02)
[2017-11-19] MEDS: AMLODIPINE BESYLATE 10 MG TABLET PEG SCH (11:02)
[2017-11-19] MEDS: RALTEGRAVIR POTASSIUM 400 MG TABLET PO SCH ×2 (11:04→18:08)
--- NOTE | 2017-11-19 11:15 | PDOC PROGRESS REPORT ---
Subjective Progress Note for:: 11/19/17 Subjective:: Patient reported less salivation and allergy symptoms this morning. Tolerating PEG feeding and remain NPO except for moisten oral swab. No chest pain or difficulty with breathing. No reported fever but patient express ambient cold temperature. Reason For Visit: HIV/SEPSIS Physical Exam Vital Signs: Temp Pulse Resp BP Pulse Ox 97.1 F 116 H 18 116/81 99 11/19/17 07:47 11/19/17 07:47 11/19/17 07:47 11/19/17 07:47 11/19/17 04:00 Intake & Output 11/18/17 11/19/17 11/20/17 06:59 06:59 06:59 Intake Total 3109 2832 Output Total 2150 600 Balance 959 2232 Weight 64.5 kg 63.3 kg Physical Exam: General appearance: PRESENT: no acute distress, well-developed, well-nourished Head exam: PRESENT: atraumatic, normocephalic Mouth exam: PRESENT: moist Teeth exam: PRESENT: poor dentition Respiratory exam: PRESENT: clear to auscultation melba, decreased breath sounds - at lung bases Cardiovascular exam: PRESENT: RRR. ABSENT: diastolic murmur, rubs, systolic murmur GI/Abdominal exam: PRESENT: normal bowel sounds, soft, other - PEG tube site is satisfactory.. ABSENT: distended, guarding, mass, organomegaly, rebound, tenderness Extremities exam: ABSENT: pedal edema Neurological exam: PRESENT: alert, awake, oriented to person, oriented to place , oriented to time, oriented to situation, CN II-XII grossly intact. ABSENT: motor sensory deficit Psychiatric exam: PRESENT: appropriate affect, normal mood. ABSENT: homicidal ideation, suicidal ideation Skin exam: PRESENT: dry, rash - radiation dermatitis changes aroung neck region , warm. ABSENT: cyanosis Results Laboratory Results: 11/19/17 07:15 11/19/17 07:15 11/18/17 11/18/17 11/19/17 13:54 16:05 07:15 WBC 4.0 RBC 2.54 L Hgb 8.4 L Hct 24.9 L MCV 98 H MCH 33.0 MCHC 33.7 RDW 18.0 H Plt Count 55 L Seg Neutrophils % 47.8 Lymphocytes % 33.1 Monocytes % 16.9 H Eosinophils % 1.7 Basophils % 0.5 Absolute Neutrophils 1.9 Absolute Lymphocytes 1.3 Absolute Monocytes 0.7 Absolute Eosinophils 0.1 Absolute Basophils 0.0 Sodium 139.5 142.4 Potassium 3.6 3.4 L Chloride 108 H 109 H Carbon Dioxide 25 25 Anion Gap 7 8 BUN 7 7 Creatinine 0.54 0.57 Est GFR ( Amer) > 60 > 60 Est GFR (Non-Af Amer) > 60 > 60 Glucose 109 80 Calcium 8.8 9.1 Total Bilirubin 0.6 0.7 AST 59 71 H ALT 38 39 Alkaline Phosphatase 87 85 Total Protein 6.1 L 6.1 L Albumin 2.9 L 2.9 L 11/19/17 07:15 WBC 2.6 L D RBC 2.46 L Hgb 8.2 L Hct 24.5 L MCV 100 H MCH 33.2 MCHC 33.3 RDW 17.9 H Plt Count 52 L Seg Neutrophils % Not Reportable Lymphocytes % Not Reportable Monocytes % Not Reportable Eosinophils % Not Reportable Basophils % Not Reportable Absolute Neutrophils Not Reportable Absolute Lymphocytes Not Reportable Absolute Monocytes Not Reportable Absolute Eosinophils Not Reportable Absolute Basophils Not Reportable Sodium Potassium Chloride Carbon Dioxide Anion Gap BUN Creatinine Est GFR ( Amer) Est GFR (Non-Af Amer) Glucose Calcium Total Bilirubin AST ALT Alkaline Phosphatase Total Protein Albumin 11/13/17 12:32 Blood Blood Culture - Final NO GROWTH IN 5 DAYS 11/13/17 11:39 Blood Blood Culture - Final NO GROWTH IN 5 DAYS Impressions: Chest X-Ray 11/08/17 12:23 IMPRESSION: NO ACUTE RADIOGRAPHIC FINDING IN THE CHEST. Chest CT 11/12/17 00:00 IMPRESSION: NO SIGNIFICANT FINDING ON NON-CONTRASTED CHEST CT. NO SIGNIFICANT CHANGE FROM PRIOR CT. Head CT 11/17/17 00:00 IMPRESSION: 1. No acute intracranial abnormality by CT criteria. 2. 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 This exam was performed according to our departmental dose-optimization program, which includes automated exposure control, adjustment of the mA and/or kV according to patient size and/or use of iterative reconstruction technique. Assessment & Plan - Diagnosis (1) Aspiration pneumonitis Is this a current diagnosis for this admission?: Yes (2) Aspiration pneumonia Qualifiers: Lung location: unspecified part of lung Is this a current diagnosis for this admission?: Yes (3) Failure of outpatient treatment Is this a current diagnosis for this admission?: Yes (4) Head and neck cancer Is this a current diagnosis for this admission?: Yes (5) Diabetes mellitus, type II Qualifiers: Diabetes mellitus complication status: with unspecified complications Diabetes mellitus halfway insulin use: without tank terminal gauger use Qualified Code( s): E11.8 - Type 2 diabetes mellitus with unspecified complications Is this a current diagnosis for this admission?: Yes (6) HIV (human immunodeficiency virus infection) Is this a current diagnosis for this admission?: Yes (7) Hypertension Qualifiers: Hypertension type: essential hypertension Qualified Code(s): I10 - Essential (primary) hypertension Is this a current diagnosis for this admission?: Yes (8) CAD (coronary artery disease), [place] coronary artery Qualifiers: [place] vs. transplanted heart: [place] heart Associated angina: without angina Qualified Code(s): I25.10 - Atherosclerotic heart disease of [place] coronary artery without angina pectoris Is this a current diagnosis for this admission?: Yes (9) Hyperlipidemia Qualifiers: Hyperlipidemia type: pure hypercholesterolemia Qualified Code(s): E78.00 - Pure hypercholesterolemia, unspecified; E78.0 - Pure hypercholesterolemia Is this a current diagnosis for this admission?: Yes (10) Seizures, generalized convulsive Is this a current diagnosis for this admission?: Yes (11) Chronic pain syndrome Is this a current diagnosis for this admission?: Yes (12) Anemia of chronic disease Is this a current diagnosis for this admission?: Yes (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 Is this a current diagnosis for this admission?: Yes - Time Time Spent with patient: 25-34 minutes Medications reviewed and adjusted accordingly: Yes Anticipated discharge: SNF - for short term rehabilitation Within: Other - Inpatient Certification Based on my medical assessment, after consideration of the patient's comorbidities, presenting symptoms, or acuity I expect that the services needed warrant INPATIENT care.: Yes I certify that my determination is in accordance with my understanding of Medicare's requirements for reasonable and necessary INPATIENT services [42 CFR 412.3e].: Yes Medical Necessity: Need Close Monitoring Due to Risk of Patient Decompensation, Need For IV Fluids, Need For Continuous Telemetry Monitoring, Risk of Complication if Not Cared For in Hospital Post Hospital Care: D/C or Transfer Summary - Plan Summary Plan Summary: Patient will receive potassium replacement therapy. Obtain serum magnesium level and replace if necessary. Continue all other current medication management.
[2017-11-19] MEDS: POTASSIUM CHLORIDE 20 MEQ/15 ML UDCUP PO SCH ×2 (11:58→15:58)
[2017-11-19] MEDS: NORMAL SALINE 1000 ML 1,000 ML IV PRN (15:58)
[2017-11-19] MEDS: TRAZODONE HCL 50 MG TABLET PEG SCH (21:29)
[2017-11-19] MEDS: ATORVASTATIN CALCIUM 10 MG TABLET PEG SCH (21:30)
[2017-11-20] MEDS: LANSOPRAZOLE 30 MG TAB.RAP.DR PO SCH (05:04)
[2017-11-20 07:23] LABS: HEMATOCRIT 26.1 % (37.9-51.0); HEMOGLOBIN 8.8 g/dL (13.5-17.0); MEAN CORPUSCULAR HEMOGLOBIN 33.4 pg (27.0-33.4); MEAN CORPUSCULAR HGB CONC 33.7 g/dL (32.0-36.0); MEAN CORPUSCULAR VOLUME 99 fl (80-97); RED BLOOD COUNT 2.64 10^6/uL (4.35-5.55); WHITE BLOOD COUNT 2.6 10^3/uL (4.0-10.5)
[2017-11-20 07:32] LABS: ALANINE AMINOTRANSFERASE 45 U/L (21-72); ALBUMIN 3.1 g/dL (3.5-5.0); ALKALINE PHOSPHATASE 96 U/L (38-126); ANION GAP 8 (5-19); ASPARTATE AMINO TRANSFERASE 75 U/L (17-59); BILIRUBIN,DIRECT 0.4 mg/dL (0.0-0.4); BILIRUBIN,TOTAL 0.6 mg/dL (0.2-1.3); BLOOD UREA NITROGEN 5 mg/dL (7-20); CARBON DIOXIDE 24 mmol/L (22-30); CHLORIDE 107 mmol/L (98-107); GLUCOSE 101 mg/dL (75-110); POTASSIUM 3.8 mmol/L (3.6-5.0); SODIUM 138.9 mmol/L (137-145); TOTAL PROTEIN 6.5 g/dL (6.3-8.2)
[2017-11-20 07:53] LABS: PLATELET COUNT 57 10^3/uL (150-450)
[2017-11-20 08:05] LABS: ABSOLUTE LYMPHOCYTES# (MANUAL) 1.3 10^3/uL (0.5-4.7); ABSOLUTE MONOCYTES # (MANUAL) 0.4 10^3/uL (0.1-1.4); ABSOLUTE NEUTROPHILS# (MANUAL) 0.8 10^3/uL (1.7-8.2); ANISOCYTOSIS 1+; BAND NEUTROPHILS % (MANUAL) 2 % (3-5); BASOPHILS % (MANUAL) 0 % (0-2); EOSINOPHILS % (MANUAL) 2 % (0-6); LYMPHOCYTES % (MANUAL) 42 % (13-45); MONOCYTES % (MANUAL) 17 % (3-13); NUCLEATED RED BLOOD CELLS 2 /100 WBC (0); OVALOCYTES SLIGHT; POLYCHROMASIA SLIGHT; SEGMENTED NEUTROPHILS % (MAN) 30 % (42-78); TARGET CELLS SLIGHT; TOTAL CELLS COUNTED 100; TOXIC GRANULATION 1+; TOXIC VACUOLATION PRESENT
[2017-11-20 08:06] LABS: PLATELET COMMENT DECREASED
[2017-11-20] MEDS: METFORMIN HCL 500 MG TABLET PEG SCH ×2 (08:47→16:12)
[2017-11-20] MEDS: ENOXAPARIN SODIUM INJ 40 MG/0.4 ML DISP.SYRIN SUBCUT SCH (08:49)
[2017-11-20] MEDS: PAROXETINE HCL 20 MG TABLET PEG SCH (08:52)
[2017-11-20] MEDS: RALTEGRAVIR POTASSIUM 400 MG TABLET PO SCH ×2 (08:53→18:18)
[2017-11-20] MEDS: CETIRIZINE 5 MG TABLET PEG SCH (08:54)
[2017-11-20] MEDS: INTELENCE 200 MG GT SCH ×2 (08:54→22:03)
[2017-11-20] MEDS: PREZISTA 600 MG GT SCH ×2 (08:56→22:03)
[2017-11-20] MEDS: RITONAVIR 100 MG TABLET GT SCH ×2 (08:57→22:02)
[2017-11-20] MEDS: METOPROLOL TARTRATE 50 MG TABLET PEG SCH ×2 (08:58→22:03)
[2017-11-20] MEDS: LEVETIRACETAM ORAL SOLN 500 MG/5 ML UDCUP GT SCH ×2 (08:59→22:01)
[2017-11-20] MEDS: AMLODIPINE BESYLATE 10 MG TABLET PEG SCH (10:52)
[2017-11-20] MEDS: VALSARTAN 160 MG TABLET PEG SCH (10:53)
[2017-11-20] MEDS: GABAPENTIN 400 MG CAPSULE PEG SCH ×2 (10:53→22:03)
[2017-11-20] MEDS: NORMAL SALINE 1000 ML 1,000 ML IV PRN (18:18)
--- NOTE | 2017-11-20 19:46 | PDOC PROGRESS REPORT ---
Subjective Progress Note for:: 11/20/17 Subjective:: No chest pain or difficulty with breathing. No reported fever or chills. No abdominal pain, nausea or vomiting. Tolerating PEG feeding. Remain NPO except for moisten oral swab. Reason For Visit: HIV/SEPSIS Physical Exam Vital Signs: Temp Pulse Resp BP Pulse Ox 98.9 F 91 13 122/76 98 11/20/17 16:00 11/20/17 16:00 11/20/17 18:00 11/20/17 16:57 11/20/17 18:00 Intake & Output 11/19/17 11/20/17 11/21/17 06:59 06:59 06:59 Intake Total 2832 2645 1403 Output Total 600 450 551 Balance 2232 2195 852 Weight 63.3 kg 63.2 kg Physical Exam: General appearance: PRESENT: no acute distress, well-developed, well-nourished Head exam: PRESENT: atraumatic, normocephalic Mouth exam: PRESENT: moist Teeth exam: PRESENT: poor dentition Respiratory exam: PRESENT: clear to auscultation melba, decreased breath sounds - at lung bases Cardiovascular exam: PRESENT: RRR. ABSENT: diastolic murmur, rubs, systolic murmur GI/Abdominal exam: PRESENT: normal bowel sounds, soft, other - PEG tube site is satisfactory. ABSENT: distended, guarding, mass, organomegaly, rebound, tenderness Extremities exam: ABSENT: pedal edema Neurological exam: PRESENT: alert, awake, oriented to person, oriented to place , oriented to time, oriented to situation, CN II-XII grossly intact. ABSENT: motor sensory deficit Psychiatric exam: PRESENT: appropriate affect, normal mood. ABSENT: homicidal ideation, suicidal ideation Skin exam: PRESENT: dry, rash - radiation dermatitis changes aroung neck region , warm. ABSENT: cyanosis Results Laboratory Results: 11/20/17 07:00 11/20/17 07:00 11/20/17 11/20/17 07:00 07:00 WBC 2.6 L RBC 2.64 L Hgb 8.8 L Hct 26.1 L MCV 99 H MCH 33.4 MCHC 33.7 RDW 18.0 H Plt Count 57 L Seg Neutrophils % Not Reportable Lymphocytes % Not Reportable Monocytes % Not Reportable Eosinophils % Not Reportable Basophils % Not Reportable Absolute Neutrophils Not Reportable Absolute Lymphocytes Not Reportable Absolute Monocytes Not Reportable Absolute Eosinophils Not Reportable Absolute Basophils Not Reportable Sodium 138.9 Potassium 3.8 Chloride 107 Carbon Dioxide 24 Anion Gap 8 BUN 5 L Creatinine 0.54 Est GFR ( Amer) > 60 Est GFR (Non-Af Amer) > 60 Glucose 101 Calcium 9.0 Total Bilirubin 0.6 AST 75 H ALT 45 Alkaline Phosphatase 96 Total Protein 6.5 Albumin 3.1 L Impressions: Chest X-Ray 11/08/17 12:23 IMPRESSION: NO ACUTE RADIOGRAPHIC FINDING IN THE CHEST. Chest CT 11/12/17 00:00 IMPRESSION: NO SIGNIFICANT FINDING ON NON-CONTRASTED CHEST CT. NO SIGNIFICANT CHANGE FROM PRIOR CT. Head CT 11/17/17 00:00 IMPRESSION: 1. No acute intracranial abnormality by CT criteria. 2. 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 This exam was performed according to our departmental dose-optimization program, which includes automated exposure control, adjustment of the mA and/or kV according to patient size and/or use of iterative reconstruction technique. Assessment & Plan - Diagnosis (1) Aspiration pneumonitis Is this a current diagnosis for this admission?: Yes (2) Aspiration pneumonia Qualifiers: Lung location: unspecified part of lung Is this a current diagnosis for this admission?: Yes (3) Failure of outpatient treatment Is this a current diagnosis for this admission?: Yes (4) Head and neck cancer Is this a current diagnosis for this admission?: Yes (5) Diabetes mellitus, type II Qualifiers: Diabetes mellitus complication status: with unspecified complications Diabetes mellitus mcc insulin use: without termite exterminator helper use Qualified Code( s): E11.8 - Type 2 diabetes mellitus with unspecified complications Is this a current diagnosis for this admission?: Yes (6) HIV (human immunodeficiency virus infection) Is this a current diagnosis for this admission?: Yes (7) Hypertension Qualifiers: Hypertension type: essential hypertension Qualified Code(s): I10 - Essential (primary) hypertension Is this a current diagnosis for this admission?: Yes (8) CAD (coronary artery disease), [place] coronary artery Qualifiers: [place] vs. transplanted heart: [place] heart Associated angina: without angina Qualified Code(s): I25.10 - Atherosclerotic heart disease of [place] coronary artery without angina pectoris Is this a current diagnosis for this admission?: Yes (9) Hyperlipidemia Qualifiers: Hyperlipidemia type: pure hypercholesterolemia Qualified Code(s): E78.00 - Pure hypercholesterolemia, unspecified; E78.0 - Pure hypercholesterolemia Is this a current diagnosis for this admission?: Yes (10) Seizures, generalized convulsive Is this a current diagnosis for this admission?: Yes (11) Chronic pain syndrome Is this a current diagnosis for this admission?: Yes (12) Anemia of chronic disease Is this a current diagnosis for this admission?: Yes (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 Is this a current diagnosis for this admission?: Yes - Time Time Spent with patient: 25-34 minutes Medications reviewed and adjusted accordingly: Yes Anticipated discharge: SNF - for short term rehabilitation Within: Other - Inpatient Certification Based on my medical assessment, after consideration of the patient's comorbidities, presenting symptoms, or acuity I expect that the services needed warrant INPATIENT care.: Yes I certify that my determination is in accordance with my understanding of Medicare's requirements for reasonable and necessary INPATIENT services [42 CFR 412.3e].: Yes Medical Necessity: Need Close Monitoring Due to Risk of Patient Decompensation, Need For IV Fluids, Need For Continuous Telemetry Monitoring, Risk of Complication if Not Cared For in Hospital Post Hospital Care: D/C or Transfer Summary - Plan Summary Plan Summary: See attending physician orders.
[2017-11-20] MEDS: TRAZODONE HCL 50 MG TABLET PEG SCH (22:02)
[2017-11-20] MEDS: ATORVASTATIN CALCIUM 10 MG TABLET PEG SCH (22:03)
[2017-11-21] MEDS: NORMAL SALINE 1000 ML 1,000 ML IV PRN (04:50)
[2017-11-21] MEDS: LANSOPRAZOLE 30 MG TAB.RAP.DR PO SCH (05:41)
[2017-11-21 07:33] LABS: HEMATOCRIT 25.2 % (37.9-51.0); HEMOGLOBIN 8.4 g/dL (13.5-17.0); MEAN CORPUSCULAR HEMOGLOBIN 33.2 pg (27.0-33.4); MEAN CORPUSCULAR HGB CONC 33.3 g/dL (32.0-36.0); MEAN CORPUSCULAR VOLUME 100 fl (80-97); RED BLOOD COUNT 2.53 10^6/uL (4.35-5.55); WHITE BLOOD COUNT 2.5 10^3/uL (4.0-10.5)
[2017-11-21 07:35] LABS: PLATELET COUNT 58 10^3/uL (150-450)
[2017-11-21 07:48] LABS: ALANINE AMINOTRANSFERASE 44 U/L (21-72); ALKALINE PHOSPHATASE 106 U/L (38-126); ANION GAP 7 (5-19); ASPARTATE AMINO TRANSFERASE 67 U/L (17-59); BILIRUBIN,DIRECT 0.4 mg/dL (0.0-0.4); BILIRUBIN,TOTAL 0.6 mg/dL (0.2-1.3); BLOOD UREA NITROGEN 6 mg/dL (7-20); CARBON DIOXIDE 26 mmol/L (22-30); CHLORIDE 106 mmol/L (98-107); GLUCOSE 92 mg/dL (75-110); POTASSIUM 3.8 mmol/L (3.6-5.0); SODIUM 139.4 mmol/L (137-145); TOTAL PROTEIN 6.4 g/dL (6.3-8.2)
[2017-11-21 07:59] LABS: ABSOLUTE LYMPHOCYTES# (MANUAL) 1.2 10^3/uL (0.5-4.7); ABSOLUTE MONOCYTES # (MANUAL) 0.6 10^3/uL (0.1-1.4); ABSOLUTE NEUTROPHILS# (MANUAL) 0.6 10^3/uL (1.7-8.2); BAND NEUTROPHILS % (MANUAL) 1 % (3-5); BASOPHILS % (MANUAL) 0 % (0-2); EOSINOPHILS % (MANUAL) 3 % (0-6); LYMPHOCYTES % (MANUAL) 47 % (13-45); MONOCYTES % (MANUAL) 24 % (3-13); NUCLEATED RED BLOOD CELLS 3 /100 WBC (0); SEGMENTED NEUTROPHILS % (MAN) 24 % (42-78); TOTAL CELLS COUNTED 100
[2017-11-21 08:01] LABS: ANISOCYTOSIS 1+; PLATELET COMMENT DECREASED; POLYCHROMASIA SLIGHT; TARGET CELLS SLIGHT
[2017-11-21] MEDS: PAROXETINE HCL 20 MG TABLET PEG SCH (10:37)
[2017-11-21] MEDS: METOPROLOL TARTRATE 50 MG TABLET PEG SCH ×2 (10:39→23:37)
[2017-11-21] MEDS: METFORMIN HCL 500 MG TABLET PEG SCH ×2 (10:40→17:09)
[2017-11-21] MEDS: VALSARTAN 160 MG TABLET PEG SCH (10:40)
[2017-11-21] MEDS: AMLODIPINE BESYLATE 10 MG TABLET PEG SCH (10:40)
[2017-11-21] MEDS: GABAPENTIN 400 MG CAPSULE PEG SCH ×2 (10:41→23:37)
[2017-11-21] MEDS: LEVETIRACETAM ORAL SOLN 500 MG/5 ML UDCUP GT SCH ×2 (10:41→23:37)
[2017-11-21] MEDS: RALTEGRAVIR POTASSIUM 400 MG TABLET PO SCH ×2 (10:41→17:09)
[2017-11-21] MEDS: RITONAVIR 100 MG TABLET GT SCH ×2 (10:41→23:36)
[2017-11-21] MEDS: CETIRIZINE 5 MG TABLET PEG SCH (10:41)
[2017-11-21] MEDS: PREZISTA 600 MG GT SCH ×2 (10:46→23:36)
[2017-11-21] MEDS: INTELENCE 200 MG GT SCH ×2 (10:46→23:36)
[2017-11-21] MEDS: ENOXAPARIN SODIUM INJ 40 MG/0.4 ML DISP.SYRIN SUBCUT SCH (10:46)
--- NOTE | 2017-11-21 12:00 | PDOC PROGRESS REPORT ---
Subjective Progress Note for:: 11/21/17 Subjective:: No reported fever or chills. No chest pain or difficulty with breathing. No abdominal pain, nausea or vomiting. Tolerating PEG feeding. Remain NPO except for moisten oral swab. Patient is agreeable to SNF short term rehabilitation at [facility] by choice. Reason For Visit: HIV/SEPSIS Physical Exam Vital Signs: Temp Pulse Resp BP Pulse Ox 98.6 F 105 H 16 127/72 H 100 11/21/17 08:05 11/21/17 08:05 11/21/17 08:05 11/21/17 08:05 11/21/17 08:05 Intake & Output 11/20/17 11/21/17 11/22/17 06:59 06:59 06:59 Intake Total 2645 3189 Output Total 450 551 Balance 2195 2638 Weight 63.2 kg 63.2 kg Physical Exam: General appearance: PRESENT: no acute distress, well-developed, well-nourished Head exam: PRESENT: atraumatic, normocephalic Mouth exam: PRESENT: moist Teeth exam: PRESENT: poor dentition Respiratory exam: PRESENT: clear to auscultation melba, decreased breath sounds - at lung bases Cardiovascular exam: PRESENT: RRR. ABSENT: diastolic murmur, rubs, systolic murmur GI/Abdominal exam: PRESENT: normal bowel sounds, soft, other - PEG tube site is satisfactory. ABSENT: distended, guarding, mass, organomegaly, rebound, tenderness Extremities exam: ABSENT: pedal edema Neurological exam: PRESENT: alert, awake, oriented to person, oriented to place , oriented to time, oriented to situation, CN II-XII grossly intact. ABSENT: motor sensory deficit Psychiatric exam: PRESENT: appropriate affect, normal mood. ABSENT: homicidal ideation, suicidal ideation Skin exam: PRESENT: dry, rash - radiation dermatitis changes aroung neck region , warm. ABSENT: cyanosis Results Laboratory Results: 11/21/17 07:10 11/21/17 07:10 11/21/17 11/21/17 07:10 07:10 WBC 2.5 L RBC 2.53 L Hgb 8.4 L Hct 25.2 L MCV 100 H MCH 33.2 MCHC 33.3 RDW 18.0 H Plt Count 58 L Seg Neutrophils % Not Reportable Lymphocytes % Not Reportable Monocytes % Not Reportable Eosinophils % Not Reportable Basophils % Not Reportable Absolute Neutrophils Not Reportable Absolute Lymphocytes Not Reportable Absolute Monocytes Not Reportable Absolute Eosinophils Not Reportable Absolute Basophils Not Reportable Sodium 139.4 Potassium 3.8 Chloride 106 Carbon Dioxide 26 Anion Gap 7 BUN 6 L Creatinine 0.55 Est GFR ( Amer) > 60 Est GFR (Non-Af Amer) > 60 Glucose 92 Calcium 9.0 Total Bilirubin 0.6 AST 67 H ALT 44 Alkaline Phosphatase 106 Total Protein 6.4 Albumin 3.0 L Impressions: Chest X-Ray 11/08/17 12:23 IMPRESSION: NO ACUTE RADIOGRAPHIC FINDING IN THE CHEST. Chest CT 11/12/17 00:00 IMPRESSION: NO SIGNIFICANT FINDING ON NON-CONTRASTED CHEST CT. NO SIGNIFICANT CHANGE FROM PRIOR CT. Head CT 11/17/17 00:00 IMPRESSION: 1. No acute intracranial abnormality by CT criteria. 2. 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 This exam was performed according to our departmental dose-optimization program, which includes automated exposure control, adjustment of the mA and/or kV according to patient size and/or use of iterative reconstruction technique. Assessment & Plan - Diagnosis (1) Aspiration pneumonitis Is this a current diagnosis for this admission?: Yes (2) Aspiration pneumonia Qualifiers: Lung location: unspecified part of lung Is this a current diagnosis for this admission?: Yes (3) Failure of outpatient treatment Is this a current diagnosis for this admission?: Yes (4) Head and neck cancer Is this a current diagnosis for this admission?: Yes (5) Diabetes mellitus, type II Qualifiers: Diabetes mellitus complication status: with unspecified complications Diabetes mellitus scaffolding helper insulin use: without usp use Qualified Code( s): E11.8 - Type 2 diabetes mellitus with unspecified complications Is this a current diagnosis for this admission?: Yes (6) HIV (human immunodeficiency virus infection) Is this a current diagnosis for this admission?: Yes (7) Hypertension Qualifiers: Hypertension type: essential hypertension Qualified Code(s): I10 - Essential (primary) hypertension Is this a current diagnosis for this admission?: Yes (8) CAD (coronary artery disease), [place] coronary artery Qualifiers: [place] vs. transplanted heart: [place] heart Associated angina: without angina Qualified Code(s): I25.10 - Atherosclerotic heart disease of [place] coronary artery without angina pectoris Is this a current diagnosis for this admission?: Yes (9) Hyperlipidemia Qualifiers: Hyperlipidemia type: pure hypercholesterolemia Qualified Code(s): E78.00 - Pure hypercholesterolemia, unspecified; E78.0 - Pure hypercholesterolemia Is this a current diagnosis for this admission?: Yes (10) Seizures, generalized convulsive Is this a current diagnosis for this admission?: Yes (11) Chronic pain syndrome Is this a current diagnosis for this admission?: Yes (12) Anemia of chronic disease Is this a current diagnosis for this admission?: Yes (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 Is this a current diagnosis for this admission?: Yes - Time Time Spent with patient: 25-34 minutes Medications reviewed and adjusted accordingly: Yes Anticipated discharge: SNF - for short term rehabilitation Within: Other - Inpatient Certification Based on my medical assessment, after consideration of the patient's comorbidities, presenting symptoms, or acuity I expect that the services needed warrant INPATIENT care.: Yes I certify that my determination is in accordance with my understanding of Medicare's requirements for reasonable and necessary INPATIENT services [42 CFR 412.3e].: Yes Medical Necessity: Need Close Monitoring Due to Risk of Patient Decompensation, Need For IV Fluids, Need For Continuous Telemetry Monitoring, Risk of Complication if Not Cared For in Hospital Post Hospital Care: D/C or Transfer Summary - Plan Summary Plan Summary: See attending physician orders. I will discussed disposition efforts with assigned social media developer/airport planner.
[2017-11-21] MEDS: TRAZODONE HCL 50 MG TABLET PEG SCH (23:36)
[2017-11-21] MEDS: ATORVASTATIN CALCIUM 10 MG TABLET PEG SCH (23:38)
[2017-11-22] MEDS: LANSOPRAZOLE 30 MG TAB.RAP.DR PO SCH (06:35)
[2017-11-22] MEDS: METFORMIN HCL 500 MG TABLET PEG SCH ×2 (07:29→18:40)
[2017-11-22] MEDS: CETIRIZINE 5 MG TABLET PEG SCH (13:01)
[2017-11-22] MEDS: METOPROLOL TARTRATE 50 MG TABLET PEG SCH ×2 (13:01→23:11)
[2017-11-22] MEDS: INTELENCE 200 MG GT SCH ×2 (13:01→23:11)
[2017-11-22] MEDS: GABAPENTIN 400 MG CAPSULE PEG SCH ×2 (13:01→23:11)
[2017-11-22] MEDS: LEVETIRACETAM ORAL SOLN 500 MG/5 ML UDCUP GT SCH ×2 (13:01→23:11)
[2017-11-22] MEDS: RALTEGRAVIR POTASSIUM 400 MG TABLET PO SCH ×2 (13:02→18:39)
[2017-11-22] MEDS: PAROXETINE HCL 20 MG TABLET PEG SCH (13:02)
[2017-11-22] MEDS: PREZISTA 600 MG GT SCH ×2 (13:02→23:12)
[2017-11-22] MEDS: RITONAVIR 100 MG TABLET GT SCH ×2 (13:02→23:12)
[2017-11-22] MEDS: VALSARTAN 160 MG TABLET PEG SCH (13:03)
[2017-11-22] MEDS: AMLODIPINE BESYLATE 10 MG TABLET PEG SCH (13:03)
[2017-11-22] MEDS: ENOXAPARIN SODIUM INJ 40 MG/0.4 ML DISP.SYRIN SUBCUT SCH (13:03)
--- NOTE | 2017-11-22 17:46 | PDOC PROGRESS REPORT ---
Subjective Progress Note for:: 11/22/17 Subjective:: No chest pain or difficulty with breathing. No abdominal pain, nausea or vomiting. Tolerating PEG feeding. Gastric residual is satisfactory. No reported fever or chills. Reason For Visit: HIV/SEPSIS Physical Exam Vital Signs: Temp Pulse Resp BP Pulse Ox 99.2 F 96 16 131/73 H 95 11/22/17 16:34 11/22/17 16:34 11/22/17 16:34 11/22/17 16:34 11/22/17 16:34 Intake & Output 11/21/17 11/22/17 11/23/17 06:59 06:59 06:59 Intake Total 3189 2822 Output Total 551 900 Balance 2638 1922 Weight 63.2 kg 63.2 kg Physical Exam: General appearance: PRESENT: no acute distress, well-developed, well-nourished Head exam: PRESENT: atraumatic, normocephalic Mouth exam: PRESENT: moist Teeth exam: PRESENT: poor dentition Respiratory exam: PRESENT: clear to auscultation melba, decreased breath sounds - at lung bases Cardiovascular exam: PRESENT: RRR. ABSENT: diastolic murmur, rubs, systolic murmur GI/Abdominal exam: PRESENT: normal bowel sounds, soft, other - PEG tube site is satisfactory. ABSENT: distended, guarding, mass, organomegaly, rebound, tenderness Extremities exam: ABSENT: pedal edema Neurological exam: PRESENT: alert, awake, oriented to person, oriented to place , oriented to time, oriented to situation, CN II-XII grossly intact. ABSENT: motor sensory deficit Psychiatric exam: PRESENT: appropriate affect, normal mood. ABSENT: homicidal ideation, suicidal ideation Skin exam: PRESENT: dry, rash - radiation dermatitis changes around neck region , warm. ABSENT: cyanosis Results Laboratory Results: 11/21/17 07:10 11/21/17 07:10 Impressions: Chest X-Ray 11/08/17 12:23 IMPRESSION: NO ACUTE RADIOGRAPHIC FINDING IN THE CHEST. Chest CT 11/12/17 00:00 IMPRESSION: NO SIGNIFICANT FINDING ON NON-CONTRASTED CHEST CT. NO SIGNIFICANT CHANGE FROM PRIOR CT. Head CT 11/17/17 00:00 IMPRESSION: 1. No acute intracranial abnormality by CT criteria. 2. 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 This exam was performed according to our departmental dose-optimization program, which includes automated exposure control, adjustment of the mA and/or kV according to patient size and/or use of iterative reconstruction technique. Assessment & Plan - Diagnosis (1) Aspiration pneumonitis Is this a current diagnosis for this admission?: Yes (2) Aspiration pneumonia Qualifiers: Lung location: unspecified part of lung Is this a current diagnosis for this admission?: Yes (3) Failure of outpatient treatment Is this a current diagnosis for this admission?: Yes (4) Head and neck cancer Is this a current diagnosis for this admission?: Yes (5) Diabetes mellitus, type II Qualifiers: Diabetes mellitus complication status: with unspecified complications Diabetes mellitus spiral spring winder insulin use: without nursing home use Qualified Code( s): E11.8 - Type 2 diabetes mellitus with unspecified complications Is this a current diagnosis for this admission?: Yes (6) HIV (human immunodeficiency virus infection) Is this a current diagnosis for this admission?: Yes (7) Hypertension Qualifiers: Hypertension type: essential hypertension Qualified Code(s): I10 - Essential (primary) hypertension Is this a current diagnosis for this admission?: Yes (8) CAD (coronary artery disease), [place] coronary artery Qualifiers: [place] vs. transplanted heart: [place] heart Associated angina: without angina Qualified Code(s): I25.10 - Atherosclerotic heart disease of [place] coronary artery without angina pectoris Is this a current diagnosis for this admission?: Yes (9) Hyperlipidemia Qualifiers: Hyperlipidemia type: pure hypercholesterolemia Qualified Code(s): E78.00 - Pure hypercholesterolemia, unspecified; E78.0 - Pure hypercholesterolemia Is this a current diagnosis for this admission?: Yes (10) Seizures, generalized convulsive Is this a current diagnosis for this admission?: Yes (11) Chronic pain syndrome Is this a current diagnosis for this admission?: Yes (12) Anemia of chronic disease Is this a current diagnosis for this admission?: Yes (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 Patient is agreeable to not getting chemotherapy or radiation therapy while undergoing short term rehabilitation. He will provide his HIV/AIDS medication while at SNF for short term rehabilitation. - Inpatient Certification Based on my medical assessment, after consideration of the patient's comorbidities, presenting symptoms, or acuity I expect that the services needed warrant INPATIENT care.: Yes I certify that my determination is in accordance with my understanding of Medicare's requirements for reasonable and necessary INPATIENT services [42 CFR 412.3e].: Yes Medical Necessity: Need Close Monitoring Due to Risk of Patient Decompensation, Need For Continuous Telemetry Monitoring, Risk of Complication if Not Cared For in Hospital Post Hospital Care: D/C or Transfer Summary - Plan Summary Plan Summary: Advance enteral feeding rate to 30 ml / hour. Maintain on all other current medication management.
[2017-11-22] MEDS: ATORVASTATIN CALCIUM 10 MG TABLET PEG SCH (23:11)
[2017-11-22] MEDS: TRAZODONE HCL 50 MG TABLET PEG SCH (23:12)
[2017-11-23] MEDS: LANSOPRAZOLE 30 MG TAB.RAP.DR PO SCH (05:22)
[2017-11-23] MEDS: METFORMIN HCL 500 MG TABLET PEG SCH ×2 (07:47→18:10)
[2017-11-23] MEDS: AMLODIPINE BESYLATE 10 MG TABLET PEG SCH (11:58)
[2017-11-23] MEDS: LEVETIRACETAM ORAL SOLN 500 MG/5 ML UDCUP GT SCH ×2 (11:58→22:12)
[2017-11-23] MEDS: PAROXETINE HCL 20 MG TABLET PEG SCH (11:58)
[2017-11-23] MEDS: VALSARTAN 160 MG TABLET PEG SCH (11:58)
[2017-11-23] MEDS: METOPROLOL TARTRATE 50 MG TABLET PEG SCH ×2 (11:58→22:12)
[2017-11-23] MEDS: GABAPENTIN 400 MG CAPSULE PEG SCH ×2 (11:58→22:12)
[2017-11-23] MEDS: RALTEGRAVIR POTASSIUM 400 MG TABLET PO SCH ×2 (11:59→18:30)
[2017-11-23] MEDS: CETIRIZINE 5 MG TABLET PEG SCH (11:59)
[2017-11-23] MEDS: INTELENCE 200 MG GT SCH ×2 (11:59→22:12)
[2017-11-23] MEDS: RITONAVIR 100 MG TABLET GT SCH ×2 (11:59→22:12)
[2017-11-23] MEDS: PREZISTA 600 MG GT SCH ×2 (11:59→22:12)
[2017-11-23] MEDS: ENOXAPARIN SODIUM INJ 40 MG/0.4 ML DISP.SYRIN SUBCUT SCH (12:00)
--- NOTE | 2017-11-23 17:09 | PDOC PROGRESS REPORT ---
Subjective Progress Note for:: 11/23/17 Subjective:: No chest pain or difficulty with breathing. No abdominal pain, nausea or vomiting. Tolerating PEG feeding. No significant gastric residual on current feeding rate. No reported fever or chills. Reason For Visit: HIV/SEPSIS Physical Exam Vital Signs: Temp Pulse Resp BP Pulse Ox 98.8 F 94 16 134/71 H 100 11/23/17 08:47 11/23/17 08:47 11/23/17 08:47 11/23/17 08:47 11/23/17 08:47 Intake & Output 11/22/17 11/23/17 11/24/17 06:59 06:59 06:59 Intake Total 2822 2681 Output Total 900 900 Balance 1922 1781 Weight 63.2 kg 63 kg Physical Exam: General appearance: PRESENT: no acute distress, well-developed, well-nourished Head exam: PRESENT: atraumatic, normocephalic Mouth exam: PRESENT: moist Teeth exam: PRESENT: poor dentition Respiratory exam: PRESENT: clear to auscultation melba, decreased breath sounds - at lung bases Cardiovascular exam: PRESENT: RRR. ABSENT: diastolic murmur, rubs, systolic murmur GI/Abdominal exam: PRESENT: normal bowel sounds, soft, other - PEG tube site is satisfactory. ABSENT: distended, guarding, mass, organomegaly, rebound, tenderness Extremities exam: ABSENT: pedal edema Neurological exam: PRESENT: alert, awake, oriented to person, oriented to place , oriented to time, oriented to situation, CN II-XII grossly intact. ABSENT: motor sensory deficit Psychiatric exam: PRESENT: appropriate affect, normal mood. ABSENT: homicidal ideation, suicidal ideation Skin exam: PRESENT: dry, rash - radiation dermatitis changes around neck region , warm. ABSENT: cyanosis Results Laboratory Results: 11/21/17 07:10 11/21/17 07:10 Impressions: Chest X-Ray 11/08/17 12:23 IMPRESSION: NO ACUTE RADIOGRAPHIC FINDING IN THE CHEST. Chest CT 11/12/17 00:00 IMPRESSION: NO SIGNIFICANT FINDING ON NON-CONTRASTED CHEST CT. NO SIGNIFICANT CHANGE FROM PRIOR CT. Head CT 11/17/17 00:00 IMPRESSION: 1. No acute intracranial abnormality by CT criteria. 2. 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 This exam was performed according to our departmental dose-optimization program, which includes automated exposure control, adjustment of the mA and/or kV according to patient size and/or use of iterative reconstruction technique. Assessment & Plan - Diagnosis (1) Aspiration pneumonitis Is this a current diagnosis for this admission?: Yes (2) Aspiration pneumonia Qualifiers: Lung location: unspecified part of lung Is this a current diagnosis for this admission?: Yes (3) Failure of outpatient treatment Is this a current diagnosis for this admission?: Yes (4) Head and neck cancer Is this a current diagnosis for this admission?: Yes (5) Diabetes mellitus, type II Qualifiers: Diabetes mellitus complication status: with unspecified complications Diabetes mellitus exterminator insulin use: without exterminator use Qualified Code( s): E11.8 - Type 2 diabetes mellitus with unspecified complications Is this a current diagnosis for this admission?: Yes (6) HIV (human immunodeficiency virus infection) Is this a current diagnosis for this admission?: Yes (7) Hypertension Qualifiers: Hypertension type: essential hypertension Qualified Code(s): I10 - Essential (primary) hypertension Is this a current diagnosis for this admission?: Yes (8) CAD (coronary artery disease), [place] coronary artery Qualifiers: [place] vs. transplanted heart: [place] heart Associated angina: without angina Qualified Code(s): I25.10 - Atherosclerotic heart disease of [place] coronary artery without angina pectoris Is this a current diagnosis for this admission?: Yes (9) Hyperlipidemia Qualifiers: Hyperlipidemia type: pure hypercholesterolemia Qualified Code(s): E78.00 - Pure hypercholesterolemia, unspecified; E78.0 - Pure hypercholesterolemia Is this a current diagnosis for this admission?: Yes (10) Seizures, generalized convulsive Is this a current diagnosis for this admission?: Yes (11) Chronic pain syndrome Is this a current diagnosis for this admission?: Yes (12) Anemia of chronic disease Is this a current diagnosis for this admission?: Yes (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 Is this a current diagnosis for this admission?: Yes - Time Time Spent with patient: 25-34 minutes Medications reviewed and adjusted accordingly: Yes Anticipated discharge: SNF - for short term rehabilitation - Inpatient Certification Based on my medical assessment, after consideration of the patient's comorbidities, presenting symptoms, or acuity I expect that the services needed warrant INPATIENT care.: Yes I certify that my determination is in accordance with my understanding of Medicare's requirements for reasonable and necessary INPATIENT services [42 CFR 412.3e].: Yes Medical Necessity: Need Close Monitoring Due to Risk of Patient Decompensation, Need For IV Fluids, Need For Continuous Telemetry Monitoring, Risk of Complication if Not Cared For in Hospital Post Hospital Care: D/C or Transfer Summary - Plan Summary Plan Summary: Continue current medication management and efforts at SNF placement for short term rehabilitation. Discharge team workinhg on getting 1 month supply of his HIV/AIDS medication on hand before transfer to SNF.
[2017-11-23] MEDS: NORMAL SALINE 1000 ML 1,000 ML IV PRN (20:50)
[2017-11-23] MEDS: TRAZODONE HCL 50 MG TABLET PEG SCH (22:12)
[2017-11-23] MEDS: ATORVASTATIN CALCIUM 10 MG TABLET PEG SCH (22:12)
[2017-11-24] MEDS: NORMAL SALINE 1000 ML 1,000 ML IV PRN (06:02)
[2017-11-24] MEDS: LANSOPRAZOLE 30 MG TAB.RAP.DR PO SCH (06:02)
[2017-11-24] MEDS: METFORMIN HCL 500 MG TABLET PEG SCH (08:01)
[2017-11-24] MEDS: RITONAVIR 100 MG TABLET GT SCH (10:00)
[2017-11-24] MEDS: METOPROLOL TARTRATE 50 MG TABLET PEG SCH (13:29)
[2017-11-24] MEDS: GABAPENTIN 400 MG CAPSULE PEG SCH (13:29)
[2017-11-24] MEDS: INTELENCE 200 MG GT SCH (13:30)
[2017-11-24] MEDS: CETIRIZINE 5 MG TABLET PEG SCH (13:30)
[2017-11-24] MEDS: PAROXETINE HCL 20 MG TABLET PEG SCH (13:30)
[2017-11-24] MEDS: RALTEGRAVIR POTASSIUM 400 MG TABLET PO SCH (13:30)
[2017-11-24] MEDS: VALSARTAN 160 MG TABLET PEG SCH (13:30)
[2017-11-24] MEDS: PREZISTA 600 MG GT SCH (13:30)
[2017-11-24] MEDS: LEVETIRACETAM ORAL SOLN 500 MG/5 ML UDCUP GT SCH (13:31)
[2017-11-24] MEDS: ENOXAPARIN SODIUM INJ 40 MG/0.4 ML DISP.SYRIN SUBCUT SCH (13:33)
[2017-11-24] MEDS: AMLODIPINE BESYLATE 10 MG TABLET PEG SCH (13:33)
--- NOTE | 2017-11-24 15:35 | PDOC TRANSFER SUMMARY ---
General - Admit/Disc Date/PCP Admission Date/Primary Care Provider: 11/08/17 14:13 Discharge Date: 11/24/17 - Discharge Diagnosis (1) Aspiration pneumonitis Is this a current diagnosis for this admission?: Yes (2) Aspiration pneumonia Is this a current diagnosis for this admission?: Yes (3) Failure of outpatient treatment Is this a current diagnosis for this admission?: Yes (4) Head and neck cancer Is this a current diagnosis for this admission?: Yes (5) Diabetes mellitus, type II Is this a current diagnosis for this admission?: Yes (6) HIV (human immunodeficiency virus infection) Is this a current diagnosis for this admission?: Yes (7) Hypertension Is this a current diagnosis for this admission?: Yes (8) CAD (coronary artery disease), [place] coronary artery Is this a current diagnosis for this admission?: Yes (9) Hyperlipidemia Is this a current diagnosis for this admission?: Yes (10) Seizures, generalized convulsive Is this a current diagnosis for this admission?: Yes (11) Chronic pain syndrome Is this a current diagnosis for this admission?: Yes (12) Anemia of chronic disease Is this a current diagnosis for this admission?: Yes (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 Is this a current diagnosis for this admission?: Yes - Additional Information Resuscitation Status: Do Not Resuscitate Home Medications: Acetaminophen with Codeine [Tylenol with Codeine 120 mg-12 mg/5 mL] 5 ml PO Q6HP PRN 11/08/17 Amlodipine Besylate [Norvasc 10 mg Tablet] 10 mg PO DAILY 11/08/17 Atorvastatin Calcium [Lipitor 10 mg Tablet] 10 mg PO DAILY 11/08/17 [place] Magic Mouthwash 5 ml PO Q4HP PRN 11/08/17 Fluconazole [Diflucan 100 mg Tablet] 100 mg PO DAILY 11/08/17 Gabapentin [Neurontin] 800 mg PO Q12 11/08/17 Glimepiride [Amaryl 4 mg Tablet] 4 mg PO DAILY 11/08/17 Ketoconazole [Nizoral] 1 applic TOP Q3DAYS 11/08/17 Levetiracetam [Keppra 500 mg Tablet] 500 mg PO BID 11/08/17 Levocetirizine Dihydrochloride [Xyzal] 5 mg PO DAILY 11/08/17 Lorazepam [Ativan 0.5 mg Tablet] 0.5 mg PO Q8HP PRN 11/08/17 Metformin HCl [Glucophage] 1,000 mg PO BIDBS 11/08/17 Metoprolol Succinate [Toprol XL 100 mg Tablet] 150 mg PO DAILY 11/08/17 Ondansetron [Zofran Odt] 8 mg PO Q8HP PRN 11/08/17 Paroxetine HCl [Paxil 20 mg Tablet] 20 mg PO DAILY 11/08/17 Prochlorperazine Maleate [Compazine 10 mg Tablet] 10 mg PO Q6HP PRN 11/08/17 Valsartan [Diovan] 320 mg PO DAILY 11/08/17 Raltegravir Potassium [Isentress 400 mg Tablet] 400 mg PO BID tablet 11/24/17 Ritonavir [Norvir 100 mg Tablet] 100 mg GT Q12 tablet 11/24/17 History of Present Illness Admission Date/PCP: 11/08/17 14:13 History of Present Illness: RAE MONTEMAYOR is a 57 year old male known to my practice who was referred to the ED due to persistent fever despite outpatient treatment with IV Rocephin x 3 days. Patient has history of AIDS and recent diagnosis of head and neck cancer on chemotherapy and radiation therapy. He had first and middle course doses of his chemotherapy with the later about 1 week ago. He remain on radiation therapy. he developed fever subsequently. He received a dose of Neulasta with fairly satisfactory response in his WBC level. He is currently on PEG tube feeding due to associated head and neck radiation induced sift tissue inflammatory response. He reported associated productive coughing and shortness of breath. No chest pain. Patient denied associated nausea or vomiting. There was reported temperature of 102F and left shift in his WBC upon presentation. There is concern for possible aspiration pneumonia and pneumonitis. He was advised hospitalization. His morbidities include Hypertension, CAD, Hyperlipidemia, Diabetes mellitus type 2, Depression, Anxiety, Seizure disorder , HIV infection with AIDS features, chronic pain syndrome, and persistent insomnia. Hospital Course Hospital Course: Patient did respond to antibiotic therapy and supportive care. His blood and urine cultures were no growth. He was transferred to [facility] status due to development of hypotension that resolved with IV fluid support. He remain on PEG tube feeding throughout his hospital stay. He was eventually restarted on his HIV/AIDS medication recently. He agreed to short term rehabilitation and subsequent home health agency services upon discharge from SNF. Patient will resume his radiation therapy and chemotherapy for head and neck cancer upon discharge from SNF. Physical Exam Vital Signs: Temp Pulse Resp BP Pulse Ox 98.7 F 98 18 113/65 100 11/24/17 12:58 11/24/17 12:58 11/24/17 12:58 11/24/17 12:58 11/24/17 12:58 Intake & Output 11/23/17 11/24/17 11/25/17 06:59 06:59 06:59 Intake Total 2681 3271 Output Total 900 750 Balance 1781 2521 Weight 63 kg 63 kg General appearance: PRESENT: no acute distress, well-developed, well-nourished Head exam: PRESENT: atraumatic, normocephalic Mouth exam: PRESENT: moist Teeth exam: PRESENT: poor dentition Respiratory exam: PRESENT: clear to auscultation melba, decreased breath sounds - at lung bases Cardiovascular exam: PRESENT: RRR. ABSENT: diastolic murmur, rubs, systolic murmur GI/Abdominal exam: PRESENT: normal bowel sounds, soft, other - PEG tube site is satisfactory. ABSENT: distended, guarding, mass, organomegaly, rebound, tenderness Extremities exam: ABSENT: pedal edema Neurological exam: PRESENT: alert, awake, oriented to person, oriented to place , oriented to time, oriented to situation, CN II-XII grossly intact. ABSENT: motor sensory deficit Psychiatric exam: PRESENT: appropriate affect, normal mood. ABSENT: homicidal ideation, suicidal ideation Skin exam: PRESENT: dry, rash - radiation dermatitis changes around neck region , warm. ABSENT: cyanosis Results Laboratory Results: 11/21/17 07:10 11/21/17 07:10 Impressions: Chest X-Ray 11/08/17 12:23 IMPRESSION: NO ACUTE RADIOGRAPHIC FINDING IN THE CHEST. Chest CT 11/12/17 00:00 IMPRESSION: NO SIGNIFICANT FINDING ON NON-CONTRASTED CHEST CT. NO SIGNIFICANT CHANGE FROM PRIOR CT. Head CT 11/17/17 00:00 IMPRESSION: 1. No acute intracranial abnormality by CT criteria. 2. 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 This exam was performed according to our departmental dose-optimization program, which includes automated exposure control, adjustment of the mA and/or kV according to patient size and/or use of iterative reconstruction technique. Transfer Plan - Disposition Transfer Plan: Transfer to [facility] for short term rehabilitation. - Time Spent with Patient Time spent with patient: Greater than 30 Minutes Qualifiers PATEINT BEING DISCHARGED WITH ANY OF THE FOLLOWING DIAGNOSIS?: No Plan Discharge Plan: Transfer to SNF for short term rehabilitation.
[2017-11-24 16:39] VITALS: BP 108/53
== END 2017-11-24 18:25 | DRG 974 ==
LOC: ER 12:07 → EH 14:13 → 4N 15:46 → ICU 11-17 01:30 → 5 11-20 22:52
PROVIDERS: ADMIT Internal Medicine Geriatric Medicine; ATTEND Internal Medicine Geriatric Medicine
DX: A41.9 Sepsis, unspecified organism (principal); J69.0 Pneumonitis due to inhalation of food and vomit; B20 Human immunodeficiency virus [HIV] disease; C14.0 Malignant neoplasm of pharynx, unspecified; D63.8 Anemia in other chronic diseases classified elsewhere; G89.4 Chronic pain syndrome; I25.10 Atherosclerotic heart disease of native coronary artery without angina pectoris; I10 Essential (primary) hypertension; E78.2 Mixed hyperlipidemia; F32.9 Major depressive disorder, single episode, unspecified; G47.00 Insomnia, unspecified; F17.210 Nicotine dependence, cigarettes, uncomplicated; D72.819 Decreased white blood cell count, unspecified; R50.9 Fever, unspecified; J45.909 Unspecified asthma, uncomplicated; E11.649 Type 2 diabetes mellitus with hypoglycemia without coma; B19.20 Unspecified viral hepatitis C without hepatic coma; M19.90 Unspecified osteoarthritis, unspecified site; L59.8 Other specified disorders of the skin and subcutaneous tissue related to radiation; D69.59 Other secondary thrombocytopenia; G40.909 Epilepsy, unspecified, not intractable, without status epilepticus; E78.00 Pure hypercholesterolemia, unspecified; Z66 Do not resuscitate; Z79.82 Long term (current) use of aspirin; Z79.899 Other long term (current) drug therapy; Z95.5 Presence of coronary angioplasty implant and graft; Z87.891 Personal history of nicotine dependence; Z79.84 Long term (current) use of oral hypoglycemic drugs; Z93.1 Gastrostomy status
CPT/HCPCS: 36415; 70450; 71010; 71250; 80048; 80053; 81001; 82803; 82962; 83605; 83735; 85025; 86850; 86900; 86901; 86920; 87040; 87086; 87493; 93005; 93010; 96365; 99291; G8978-GP; G8979-GP; J0692; J0698; J1442; J1650; J1815; J3480; J3490; J7030; S0119

== ENCOUNTER 2017-12-03 13:57 | Inpatient (IN) | payer MEDICARE, MEDICAID ==
[2017-12-03] MEDS ORDERED: DEXTROSE 50%-WATER 25 GM/50 ML DISP.SYRIN IV ONE (14:16)
[2017-12-03 14:56] LABS: HEMATOCRIT 29.4 % (37.9-51.0); MEAN CORPUSCULAR HEMOGLOBIN 33.7 pg (27.0-33.4); MEAN CORPUSCULAR HGB CONC 33.8 g/dL (32.0-36.0); MEAN CORPUSCULAR VOLUME 100 fl (80-97); PLATELET COUNT 347 10^3/uL (150-450); RED BLOOD COUNT 2.96 10^6/uL (4.35-5.55); RED CELL DISTRIBUTION WIDTH 19.4 % (11.5-14.0); WHITE BLOOD COUNT 5.5 10^3/uL (4.0-10.5)
[2017-12-03 15:14] LABS: ALANINE AMINOTRANSFERASE 40 U/L (21-72); ALBUMIN 4.2 g/dL (3.5-5.0); ALKALINE PHOSPHATASE 124 U/L (38-126); ANION GAP 10 (5-19); ASPARTATE AMINO TRANSFERASE 72 U/L (17-59); BILIRUBIN,DIRECT 0.6 mg/dL (0.0-0.4); BILIRUBIN,TOTAL 0.7 mg/dL (0.2-1.3); BLOOD UREA NITROGEN 16 mg/dL (7-20); CALCIUM 10.3 mg/dL (8.4-10.2); CARBON DIOXIDE 26 mmol/L (22-30); CHLORIDE 93 mmol/L (98-107); GLUCOSE 74 mg/dL (75-110); POTASSIUM 5.1 mmol/L (3.6-5.0); SODIUM 129.2 mmol/L (137-145); TOTAL PROTEIN 8.9 g/dL (6.3-8.2)
[2017-12-03 15:15] LABS: ALCOHOL < 10 mg/dL (NONE DETECTED)
[2017-12-03 15:16] LABS: ABSOLUTE LYMPHOCYTES# (MANUAL) 1.9 10^3/uL (0.5-4.7); ABSOLUTE MONOCYTES # (MANUAL) 1.5 10^3/uL (0.1-1.4); ANISOCYTOSIS 2+; BASOPHILS % (MANUAL) 1 % (0-2); EOSINOPHILS % (MANUAL) 0 % (0-6); LYMPHOCYTES % (MANUAL) 35 % (13-45); PLATELET CLUMPS PRESENT; PLATELET COMMENT ADEQUATE; PLATELET GIANT PRESENT; PLATELET LARGE PRESENT; POLYCHROMASIA SLIGHT; SEGMENTED NEUTROPHILS % (MAN) 36 % (42-78); TOTAL CELLS COUNTED 100; TOXIC GRANULATION SLIGHT; TOXIC VACUOLATION PRESENT
[2017-12-03 15:17] LABS: MONOCYTES % (MANUAL) 28 % (3-13)
[2017-12-03 15:47] LABS: APPEARANCE,URINE CLEAR; BILIRUBIN,URINE NEGATIVE (NEGATIVE); COLOR,URINE YELLOW; GLUCOSE, URINE >=500 mg/dL (NEGATIVE); KETONES,URINE NEGATIVE (NEGATIVE); LEUKOCYTE ESTERASE,URINE MODERATE (NEGATIVE); NITRITE,URINE NEGATIVE (NEGATIVE); PROTEIN,URINE 30 mg/dL (NEGATIVE)
--- NOTE | 2017-12-03 15:51 | ER Document Report ---
ED General - General Chief Complaint: Low Blood Sugar Stated Complaint: FALL,BLOOD SUGAR ISSUES Time Seen by Provider: 12/03/17 14:15 Mode of Arrival: Medic Information source: Patient, Emergency Med Personnel, Outside Facility Records TRAVEL OUTSIDE OF THE [place] IN LAST 30 DAYS: No - HPI Patient complains to provider of: low blood sugar Onset: Just prior to arrival Onset/Duration: Sudden Quality of pain: No pain Associated symptoms: None Exacerbated by: Denies Relieved by: Denies Similar symptoms previously: Yes Recently seen / treated by doctor: No Notes: This is a 57-year-old male who presents emergency department from [facility] he states he rolled out of bed. His blood sugar was also found to be 52. Patient was sent here for evaluation - Related Data Allergies/Adverse Reactions: No Known Drug Allergies Allergy (Verified 11/08/17 12:12) olive extract [[place]] Allergy (Verified 11/08/17 12:10) Shortness of Breath Past Medical History - General Information source: Patient, Outside Facility Records - Social History Smoking Status: Former Smoker Cigarette use (# per day): No Chew tobacco use (# tins/day): No Smoking Education Provided: No Frequency of alcohol use: None Drug Abuse: None Lives with: Shelter Family History: Reviewed & Not Pertinent Patient has suicidal ideation: No Patient has homicidal ideation: No - Past Medical History Cardiac Medical History: Reports: Hx Coronary Artery Disease, Hx Hypercholesterolemia, Hx Hypertension Denies: Hx Heart Attack Pulmonary Medical History: Reports: Hx Pneumonia Denies: Hx Asthma, Hx Bronchitis, Hx COPD, Hx Tuberculosis Neurological Medical History: Reports: Hx Seizures - LAST ONE 3 WEEKS . Denies : Hx Cerebrovascular Accident Endocrine Medical History: Reports: Hx Diabetes Mellitus Type 2 Renal/ Medical History: Denies: Hx Peritoneal Dialysis GI Medical History: Reports: Hx Hepatitis - HEP C,HIV+. Denies: Hx Hiatal Hernia, Hx Ulcer Musculoskeltal Medical History: Reports Hx Arthritis Psychiatric Medical History: Denies: Hx Depression Infectious Medical History: Reports: Hx Hepatitis - HEP C,HIV+, Hx HIV Past Surgical History: Reports: Hx Cardiac Catheterization, Hx Cardiac Surgery - stent placement, Hx Coronary Stent, Hx Orthopedic Surgery - lumbar surgery, Other - peg. Denies: Hx Open Heart Surgery, Hx Pacemaker - Immunizations Hx Diphtheria, Pertussis, Tetanus Vaccination: Yes - one year per pt. Review of Systems - Review of Systems Constitutional: No symptoms reported EENT: No symptoms reported Cardiovascular: No symptoms reported Respiratory: No symptoms reported Gastrointestinal: No symptoms reported Skin: No symptoms reported Hematologic/Lymphatic: No symptoms reported Neurological/Psychological: No symptoms reported Physical Exam - Vital signs Vitals: Temp Pulse Resp BP Pulse Ox 101.2 F H 107 H 22 H 124/75 100 12/03/17 14:10 12/03/17 14:10 12/03/17 14:10 12/03/17 14:10 12/03/17 14:10 Notes: PHYSICAL EXAMINA - Notes Notes: Physical examination: GENERAL: Chronically ill appearing. HEAD: Atraumatic, normocephalic. EYES: Pupils equal round and reactive to light, extraocular movements intact, sclera anicteric, conjunctiva are normal. ENT: Nares patent, oropharynx clear without exudates. Moist mucous membranes. NECK: supple without lymphadenopathy LUNGS: Breath sounds clear to auscultation bilaterally and equal. No wheezes rales or rhonchi. HEART: Regular rate and rhythm without murmurs ABDOMEN: Soft, nontender, nondistended abdomen. No guarding, no rebound. No masses appreciated. Musculoskeletal: Lateral contractures of lower extremities no pitting or edema. No cyanosis. NEUROLOGICAL: Cranial nerves grossly intact. Normal speech. Normal sensory. PSYCH: Normal mood, normal affect. SKIN: Warm, Dry, normal turgor, no rashes or lesions noted. - General General appearance: Appears well, Alert Course - Re-evaluation Re-evalutation: 12/03/17 19:01 Patient's blood glucose has been stable since the amp of D50 was given. - Vital Signs Vital signs: Temp Pulse Resp BP Pulse Ox 101.2 F H 107 H 19 103/74 99 12/03/17 14:10 12/03/17 14:10 12/03/17 17:01 12/03/17 17:01 12/03/17 17:01 - Laboratory Result Diagrams: 12/03/17 14:40 12/03/17 14:40 Laboratory results interpreted by me: 12/03/17 12/03/17 12/03/17 14:14 14:40 14:40 RBC 2.96 L Hgb 10.0 L Hct 29.4 L MCV 100 H MCH 33.7 H RDW 19.4 H Seg Neuts % (Manual) 36 L Monocytes % (Manual) 28 H Abs Monocytes (Manual) 1.5 H Sodium 129.2 L Potassium 5.1 H Chloride 93 L Glucose 74 L POC Glucose 46 L Calcium 10.3 H Direct Bilirubin 0.6 H AST 72 H Total Protein 8.9 H Urine Protein Urine Glucose (UA) Urine Blood Urine Urobilinogen Ur Leukocyte Esterase Urine Ascorbic Acid 12/03/17 12/03/17 15:17 15:27 RBC Hgb Hct MCV MCH RDW Seg Neuts % (Manual) Monocytes % (Manual) Abs Monocytes (Manual) Sodium Potassium Chloride Glucose POC Glucose 112 H Calcium Direct Bilirubin AST Total Protein Urine Protein 30 H Urine Glucose (UA) >=500 H Urine Blood SMALL H Urine Urobilinogen 4.0 H Ur Leukocyte Esterase MODERATE H Urine Ascorbic Acid 20 H Discharge - Discharge Clinical Impression: Fever, Hypoglycemia associated with diabetes, HIV (human immunodeficiency virus infection), Anemia Condition: Fair Admitting Provider: Cher [facility] Admitted: Telemetry
--- NOTE | 2017-12-03 15:54 | RADIOLOGY REPORT (SQ) ---
EXAM DESCRIPTION: CHEST SINGLE VIEW COMPLETED DATE/TIME: 12/03/2017 3:28 pm REASON FOR STUDY: fever/HIV COMPARISON: None. EXAM PARAMETERS: NUMBER OF VIEWS: One view. TECHNIQUE: Single frontal radiographic view of the chest acquired. RADIATION DOSE: NA LIMITATIONS: None. FINDINGS: LUNGS AND PLEURA: No infiltrates, masses or pneumothorax. No pleural effusion. MEDIASTINUM AND HILAR STRUCTURES: No masses. Contour normal. HEART AND VASCULAR STRUCTURES: Heart normal in size. Normal pulmonary vasculature. BONES: No acute findings. HARDWARE: Port-A-Cath noted with tip overlying caval atrial junction. OTHER: No other significant finding. IMPRESSION: NO ACUTE DISEASE. TECHNICAL DOCUMENTATION: JOB ID: [id number] [id number] 2010 [employer]- All Rights Reserved
[2017-12-03] MEDS ORDERED: PIPERACILLIN/TAZOBACTAM 3.375 GM VIAL IV ONE (16:22)
[2017-12-03] MEDS ORDERED: DEXTROSE 40% GEL 15 GM TUBE ONE (23:44)
[2017-12-03] MEDS ORDERED: PROCHLORPERAZINE MALEATE 10 MG TABLET GT PRN (23:45)
[2017-12-03] MEDS ORDERED: ONDANSETRON HCL 8 MG TABLET GT PRN (23:45)
[2017-12-03] MEDS ORDERED: NYSTATIN/DEXAMETH/DIPHEN SUSP 120 ML PO PRN (23:45)
[2017-12-03] MEDS ORDERED: INSULIN ASPART SQ PRN (23:45)
[2017-12-04] MEDS ORDERED: DEXTROSE 5%-WATER 1000 ML 1,000 ML IV PRN (00:04)
[2017-12-04] MEDS ORDERED: DEXTROSE 40% GEL 15 GM TUBE X 2 PO PRN (03:16)
[2017-12-04] MEDS ORDERED: DEXTROSE 40% GEL 15 GM TUBE PO PRN (03:16)
[2017-12-04] MEDS ORDERED: DEXTROSE 50%-WATER SYRINGE 25 GM/50 ML DOSE IV PRN (03:16)
[2017-12-04] MEDS ORDERED: DEXTROSE 50%-WATER SYRINGE 12.5 GM/25 ML DOSE IV PRN (03:16)
[2017-12-04] MEDS ORDERED: INSULIN LISPRO 100 UNIT/ML 3 ML VIAL SUBCUT PRN (03:16)
[2017-12-04] MEDS ORDERED: GLUCAGON,HUMAN RECOMB 1 MG INJ IM PRN (03:16)
[2017-12-04] MEDS ORDERED: METOPROLOL SUCCINATE 50 MG TAB.SR.24H PO SCH (10:00)
[2017-12-04] MEDS ORDERED: GLIMEPIRIDE 4 MG TABLET GT SCH (10:00)
[2017-12-04] MEDS: METFORMIN HCL 500 MG TABLET GT SCH ×2 (10:15→17:09)
[2017-12-04] MEDS: PAROXETINE HCL 20 MG TABLET GT SCH (10:16)
[2017-12-04] MEDS: AMLODIPINE BESYLATE 10 MG TABLET GT SCH (10:16)
[2017-12-04] MEDS: VALSARTAN 160 MG TABLET GT SCH (10:16)
[2017-12-04] MEDS: CETIRIZINE 5 MG TABLET PO SCH (10:16)
[2017-12-04] MEDS: ATORVASTATIN CALCIUM 10 MG TABLET GT SCH (10:16)
[2017-12-04] MEDS: GABAPENTIN 400 MG CAPSULE PO SCH ×2 (10:17→22:37)
[2017-12-04] MEDS: LEVETIRACETAM ORAL SOLN 500 MG/5 ML UDCUP GT SCH ×2 (10:17→22:37)
[2017-12-04] MEDS: FLUCONAZOLE 40 MG/ML SUSP 35 ML GT SCH (10:17)
[2017-12-04] MEDS ORDERED: RITONAVIR 100 MG TABLET GT ONE (14:00)
[2017-12-04] MEDS: METOPROLOL TARTRATE 50 MG TABLET GT SCH ×2 (21:14→22:35)
[2017-12-04] MEDS: RALTEGRAVIR POTASSIUM 400 MG TABLET GT SCH (21:14)
--- NOTE | 2017-12-04 21:27 | PDOC H&P ---
History of Present Illness Admission Date/PCP: 12/03/17 23:45 History of Present Illness: RAE MONTEMAYOR is a 57 year old male, [facility] he was transferred from nursing of the emergency room for evaluation of hypoglycemia, in the emergency room he was found to have temperature 101 but there was no source for the fever, chest x-ray urine came back negative. He only had one episode of fever subsequently his temperature has been normal. Patient was admitted for observation for the management of the hypoglycemia. There is no other complaints. Past Medical History Cardiac Medical History: Reports: Coronary Artery Disease, Hyperlipidema, Hypertension Pulmonary Medical History: Reports: Pneumonia Neurological Medical History: Reports: Seizures - LAST ONE 3 WEEKS Endocrine Medical History: Reports: Diabetes Mellitus Type 2 GI Medical History: Reports: Hepatitis - HEP C,HIV+ Denies: Hiatal Hernia Musculoskeltal Medical History: Reports: Arthritis Psychiatric Medical History: Denies: Depression Infectious Medical History: Reports: HIV Past Surgical History Past Surgical History: Reports: Cardiac Catheterization, Coronary Stent, Orthopedic Surgery - lumbar surgery, Other - peg Social History Lives with: Retirement Smoking Status: Current Every Day Smoker Cigarettes Packs Per Day: 1 Number of Years Smokin Frequency of Alcohol Use: None Hx Recreational Drug Use: No Drugs: None Hx Prescription Drug Abuse: No - Advance Directive Resuscitation Status: Full Code Family History Family History: Reviewed & Not Pertinent Parental Family History Reviewed: Yes Children Family History Reviewed: Yes Sibling(s) Family History Reviewed.: Yes Medication/Allergy Home Medications: Amlodipine Besylate [Norvasc 10 mg Tablet] 10 mg GT DAILY 12/03/17 Atorvastatin Calcium [Lipitor 10 mg Tablet] 10 mg GT DAILY 12/03/17 Fluconazole [Diflucan 100 mg Tablet] 100 mg GT DAILY 12/03/17 Gabapentin [Neurontin 400 mg Capsule] 800 mg GT Q12 12/03/17 Insulin Aspart [Novolog Insulin (Aspart) 100 unit/mL] See Protocol SQ ASDIR PRN 12/03/17 Ketoconazole [Nizoral] 1 applic TOP Q3DAYS 12/03/17 Levetiracetam [Keppra 500 mg Tablet] 500 mg GT Q12 12/03/17 Levocetirizine Dihydrochloride [Xyzal] 5 mg GT DAILY 12/03/17 Metformin HCl 1,000 mg GT BIDBS 12/03/17 Metoprolol Succinate [Toprol XL 100 mg Tablet] 150 mg GT DAILY 12/03/17 Nystatin/Dexameth/Diphen [Magic Mouthwash] 5 ml GT Q4HP PRN 12/03/17 Ondansetron HCl [Zofran 8 mg Tablet] 8 mg GT Q8HP PRN 12/03/17 Paroxetine HCl [Paxil 20 mg Tablet] 20 mg GT DAILY 12/03/17 Prochlorperazine Maleate [Compazine 10 mg Tablet] 10 mg GT Q6HP PRN 12/03/17 Valsartan [Diovan] 320 mg GT DAILY 12/03/17 Raltegravir Potassium [Isentress 400 mg Tablet] 400 mg GT Q12 12/04/17 Ritonavir [Norvir 100 mg Tablet] 100 mg GT DAILY 12/04/17 Allergies/Adverse Reactions: No Known Drug Allergies Allergy (Verified 11/08/17 12:12) olive extract [[place]] Allergy (Verified 11/08/17 12:10) Shortness of Breath Review of Systems Constitutional: ABSENT: chills, fever(s), headache(s), weight gain, weight loss Eyes: ABSENT: visual disturbances Ears: ABSENT: hearing changes Cardiovascular: ABSENT: chest pain, dyspnea on exertion, edema, orthropnea, palpitations Respiratory: ABSENT: cough, hemoptysis Gastrointestinal: ABSENT: abdominal pain, constipation, diarrhea, hematemesis, hematochezia, nausea, vomiting Genitourinary: ABSENT: dysuria, hematuria Musculoskeletal: ABSENT: joint swelling Integumentary: ABSENT: rash, wounds Neurological: ABSENT: abnormal gait, abnormal speech, confusion, dizziness, focal weakness, syncope Psychiatric: ABSENT: anxiety, depression, homidical ideation, suicidal ideation Endocrine: ABSENT: cold intolerance, heat intolerance, menstrual abnormalities, polydipsia, polyuria Hematologic/Lymphatic: ABSENT: easy bleeding, easy bruising, lymphadenopathy Physical Exam Vital Signs: Temp Pulse Resp BP Pulse Ox 98.5 F 28 L 16 105/55 L 100 12/04/17 19:30 12/04/17 19:30 12/04/17 19:30 12/04/17 19:30 12/04/17 19:30 Intake & Output 12/03/17 12/04/17 12/05/17 06:59 06:59 06:59 Intake Total 760 Output Total 1000 450 Balance -1000 310 Weight 60 kg General appearance: PRESENT: no acute distress, cooperative Eye exam: PRESENT: conjunctiva pink, EOMI, PERRLA Ear exam: PRESENT: normal external ear exam Mouth exam: PRESENT: moist, tongue midline Neck exam: PRESENT: full ROM Respiratory exam: PRESENT: clear to auscultation melba Cardiovascular exam: PRESENT: RRR, +S1, +S2 Pulses: PRESENT: normal dorsalis pedis pul, +2 pedal pulses bilateral Vascular exam: PRESENT: normal capillary refill GI/Abdominal exam: PRESENT: normal bowel sounds, soft, other - PEG tube Rectal exam: PRESENT: deferred Neurological exam: PRESENT: alert, CN II-XII grossly intact Psychiatric exam: PRESENT: appropriate affect, normal mood Skin exam: PRESENT: dry, intact, warm Results Impressions: Chest X-Ray 12/03/17 14:51 IMPRESSION: NO ACUTE DISEASE. Assessment & Plan - Diagnosis (1) Hypoglycemia associated with diabetes Is this a current diagnosis for this admission?: Yes Plan: This is most likely from glimepiride this be discontinued (2) Febrile illness Is this a current diagnosis for this admission?: Yes Plan: He had one episode of elevated blood pressure ,probably viral
--- NOTE | 2017-12-04 21:31 | PDOC TRANSFER SUMMARY ---
General - Admit/Disc Date/PCP Admission Date/Primary Care Provider: 12/03/17 23:45 Discharge Date: 12/04/17 - Discharge Diagnosis (1) Hypoglycemia associated with diabetes Is this a current diagnosis for this admission?: Yes (2) Febrile illness Is this a current diagnosis for this admission?: Yes - Additional Information Resuscitation Status: Full Code Home Medications: Amlodipine Besylate [Norvasc 10 mg Tablet] 10 mg GT DAILY 12/03/17 Atorvastatin Calcium [Lipitor 10 mg Tablet] 10 mg GT DAILY 12/03/17 Fluconazole [Diflucan 100 mg Tablet] 100 mg GT DAILY 12/03/17 Gabapentin [Neurontin 400 mg Capsule] 800 mg GT Q12 12/03/17 Insulin Aspart [Novolog Insulin (Aspart) 100 unit/mL] See Protocol SQ ASDIR PRN 12/03/17 Ketoconazole [Nizoral] 1 applic TOP Q3DAYS 12/03/17 Levetiracetam [Keppra 500 mg Tablet] 500 mg GT Q12 12/03/17 Levocetirizine Dihydrochloride [Xyzal] 5 mg GT DAILY 12/03/17 Metformin HCl 1,000 mg GT BIDBS 12/03/17 Metoprolol Succinate [Toprol XL 100 mg Tablet] 150 mg GT DAILY 12/03/17 Nystatin/Dexameth/Diphen [Magic Mouthwash] 5 ml GT Q4HP PRN 12/03/17 Ondansetron HCl [Zofran 8 mg Tablet] 8 mg GT Q8HP PRN 12/03/17 Paroxetine HCl [Paxil 20 mg Tablet] 20 mg GT DAILY 12/03/17 Prochlorperazine Maleate [Compazine 10 mg Tablet] 10 mg GT Q6HP PRN 12/03/17 Valsartan [Diovan] 320 mg GT DAILY 12/03/17 Raltegravir Potassium [Isentress 400 mg Tablet] 400 mg GT Q12 12/04/17 Ritonavir [Norvir 100 mg Tablet] 100 mg GT DAILY 12/04/17 History of Present Illness Admission Date/PCP: 12/03/17 23:45 History of Present Illness: RAE MONTEMAYOR is a 57 year old male, He was recently transfer to the [facility] for [facility] he was transferred from nursing of the emergency room for evaluation of hypoglycemia, in the emergency room he was found to have temperature 101 but there was no source for the fever, chest x-ray urine came back negative. He only had one episode of fever subsequently his temperature has been normal. Patient was admitted for observation for the management of the hypoglycemia. There is no other complaints. Hospital Course Hospital Course: Patient was admitted for observation for the management of hypoglycemia, he was taken off glimiperide, he was treated with 5% dextrose infusion, subsequently transitioned to tube feeds Physical Exam Vital Signs: Temp Pulse Resp BP Pulse Ox 98.5 F 28 L 16 105/55 L 100 12/04/17 19:30 12/04/17 19:30 12/04/17 19:30 12/04/17 19:30 12/04/17 19:30 Intake & Output 12/03/17 12/04/17 12/05/17 06:59 06:59 06:59 Intake Total 760 Output Total 1000 450 Balance -1000 310 Weight 60 kg General appearance: PRESENT: no acute distress Head exam: PRESENT: atraumatic, normocephalic Eye exam: PRESENT: conjunctiva pink, EOMI, PERRLA Ear exam: PRESENT: normal external ear exam Mouth exam: PRESENT: moist, tongue midline Respiratory exam: PRESENT: clear to auscultation melba Cardiovascular exam: PRESENT: RRR, +S1, systolic murmur Pulses: PRESENT: normal dorsalis pedis pul Vascular exam: PRESENT: normal capillary refill GI/Abdominal exam: PRESENT: normal bowel sounds, soft Rectal exam: PRESENT: deferred Extremities exam: PRESENT: full ROM Neurological exam: PRESENT: alert Psychiatric exam: PRESENT: appropriate affect, normal mood. ABSENT: homicidal ideation, suicidal ideation Skin exam: PRESENT: dry, intact, warm. ABSENT: cyanosis, rash Results Impressions: Chest X-Ray 12/03/17 14:51 IMPRESSION: NO ACUTE DISEASE.
[2017-12-04 22:22] LABS: ALANINE AMINOTRANSFERASE 40 U/L (21-72); ALBUMIN 3.7 g/dL (3.5-5.0); ALKALINE PHOSPHATASE 106 U/L (38-126); ANION GAP 10 (5-19); ASPARTATE AMINO TRANSFERASE 60 U/L (17-59); BILIRUBIN,DIRECT 0.7 mg/dL (0.0-0.4); BILIRUBIN,TOTAL 0.8 mg/dL (0.2-1.3); BLOOD UREA NITROGEN 13 mg/dL (7-20); CARBON DIOXIDE 23 mmol/L (22-30); CHLORIDE 93 mmol/L (98-107); GLUCOSE 68 mg/dL (75-110); POTASSIUM 4.9 mmol/L (3.6-5.0); TOTAL PROTEIN 7.8 g/dL (6.3-8.2)
[2017-12-05] MEDS: RITONAVIR 100 MG TABLET GT SCH ×2 (00:52→10:12)
[2017-12-05] MEDS: METFORMIN HCL 500 MG TABLET GT SCH (10:07)
[2017-12-05] MEDS: PAROXETINE HCL 20 MG TABLET GT SCH (10:08)
[2017-12-05] MEDS: METOPROLOL TARTRATE 50 MG TABLET GT SCH (10:08)
[2017-12-05] MEDS: AMLODIPINE BESYLATE 10 MG TABLET GT SCH (10:09)
[2017-12-05] MEDS: VALSARTAN 160 MG TABLET GT SCH (10:09)
[2017-12-05] MEDS: ATORVASTATIN CALCIUM 10 MG TABLET GT SCH (10:10)
[2017-12-05] MEDS: GABAPENTIN 400 MG CAPSULE PO SCH (10:10)
[2017-12-05] MEDS: CETIRIZINE 5 MG TABLET PO SCH (10:11)
[2017-12-05] MEDS: FLUCONAZOLE 40 MG/ML SUSP 35 ML GT SCH (10:11)
[2017-12-05] MEDS: RALTEGRAVIR POTASSIUM 400 MG TABLET GT SCH (10:13)
[2017-12-05 12:20] VITALS: BP 102/65
[2017-12-06] MEDS ORDERED: (PENDING PHARMACY ID) (Ketoconazole [Nizoral] 1 APPLIC) TOP SCH (10:00)
== END 2017-12-05 14:06 | DRG 637 ==
LOC: ER 13:57 → EH 20:12 → OBSVTOIN 23:45 → 4W 12-04 19:09
PROVIDERS: ADMIT Internal Medicine; ATTEND Internal Medicine
DX: E11.649 Type 2 diabetes mellitus with hypoglycemia without coma (principal); B20 Human immunodeficiency virus [HIV] disease; R50.9 Fever, unspecified; G40.909 Epilepsy, unspecified, not intractable, without status epilepticus; I25.10 Atherosclerotic heart disease of native coronary artery without angina pectoris; E78.5 Hyperlipidemia, unspecified; I10 Essential (primary) hypertension; M19.90 Unspecified osteoarthritis, unspecified site; Z79.899 Other long term (current) drug therapy; Z95.5 Presence of coronary angioplasty implant and graft; F17.210 Nicotine dependence, cigarettes, uncomplicated; Z79.4 Long term (current) use of insulin; Z91.018 Allergy to other foods
CPT/HCPCS: 36415; 71045; 80053; 80307; 81001; 82962; 83605; 85025; 87040; 96365; 96375; 99285; J2543; J3490; J7060

== ENCOUNTER → 2017-12-12 | Outpatient (CLI) | payer MEDICARE, MEDICAID ==
--- NOTE | 2017-12-12 08:43 | RADIOLOGY REPORT (SQ) ---
EXAM DESCRIPTION: COOKIE SWALLOW COMPLETED DATE/TIME: 12/12/2017 8:21 am REASON FOR STUDY: OTHER DYSPHAGIA (R13.19) R13.19 OTHER DYSPHAGIA COMPARISON: CT brain 11/17/2017 TECHNIQUE: Videofluoroscopic swallowing examination was performed in conjunction with speech patholo gy. Videofluoroscopic imaging was obtained and reviewed and these are the findings: RADIATION DOSE: 45 seconds Limited digital cine images saved to PACS. LIMITATIONS: None FINDINGS: The patient was brought into the fluoro room and placed upright on a modified barium swall ow chair. The patient was then given multiple consistencies mixed with barium to swallow under live fluoroscopic video guidance. According to the Speech Pathologist there was no penetration or aspirat ion. IMPRESSION: NO EVIDENCE OF PENETRATION OR ASPIRATIONPLEASE SEE SPEECH PATHOLOGIST REPORT FOR OTHER F INDINGS AND RECOMMENDATIONS. COMMENT: Quality ID [id number]: Final reports for procedures using fluoroscopy that document radiation exp osure indices, or exposure time and number of fluorographic images (if radiation exposure indices are not available) TECHNICAL DOCUMENTATION: JOB ID: [id number] [employer]- All Rights Reserved
--- NOTE | 2017-12-12 13:45 | ST Modified Barium Swallow ---
Recommendation - Recommendations Recommendations: Functional swallow seen. Recommend mechanical soft foods with ground meats due to reported fatigue of the patient. Regular liquids. PO diet supplimented with tube feeds. Medical Diagnoses - Medical Diagnoses Medical Diagnosis Description & ICD-10 Code(s): other dysphagia R13.19, dysphagia 13.10 Other Medical Diagnoses/Co-Morbidities: Per EMR: HTN, DM, Arthritis, HIV +, seizures, CAD, Hep C, hyperlipidemia. List may not be complete. ST Modified Barium Swallow - General Date: 12/12/17 Referring Physician: Dr. Kwon Reason for Referral: determine recommended diet - History History obtained from: Other - EMR -: Medical - Patient referred to determine safe diet and nature of swallowing concerns. The patient has a PEG tube, and he reports that he eats by mouth unrestricted as well as having tube feeds. Unable to specify swallowing concerns , but states "it doesn't feel right". Medications: Unable to give medication list. Allergies: Point, olive oil - Functional Status Prior Functional Status: INDEPENDENT: feeding - requires assistance - Subjective Patient/caregiver goal(s): safe swallow Cognitive-Linguistic Function: Functional Speech Intelligibility: Mildly dysarthric Current Nutritional Means: PEG, PO Current PO diet: Regular - per patient report Current symptoms: other Pain: Patient reports, 0/5 - Objective Assessment: Upright, Left Lateral - Food Trials Used Food trials used: Thin liquids, Pureed, Regular The patient: Required Assist - Oral-Motor Skills Dentition: Partial Laryngeal Function: Volitional Cough - WFL, Volitional Swallow - WFL Oral Motor Skills: Functional oral phase seen, poor oral hygiene. - Assessment Oral prep: Normal Labial closure: Adequate Leakage: None Mastication: Adequate Lingual Movement: Normal Oral stage: Normal for this Procedure - Pharyngeal Stage Initiation of Pharyngeal Stage Reflex: Normal Decreased laryngeal elevation: No Reduced Velopharyngeal Closure: no Reduced pressure generation: No reduced tongue-based retraction: No Pre-swallow pooling in valleculae: Mild - with liquid trials Pre-Swallow pooling in pyriforms: None Reduced Thyro-Hyoid approximation: No Reduced epiglottic excursion: No Reduced pharyngeal peristalsis/contraction: No Multiple Swallows with: Cleared w/ Dry Swallow Post-swallow residulas vallecular: None Post-Swallow residuals in pyriforms: Mild - with solid trials Pharyngeal Stage Comments: Patient was sitting with head leaning forward, unable to bring head up during assessment. However, patient's poor ability to sit upright did not impact his swallowing skills. The patient did verbalize that he was tired during the study , appeared to fatigue quickly. - Fall Risk Assessment Medications/Conditions that increase fall risks include: Antidepressants, sedatives, anti-arrhythmic, diuretic, benzodiazipenes, neuroleptics. BP regulation problems, cardiac problems, balance or gait deficits, neurological problems. Is patient considered at risk for falls: yes Fall Risk Actions Taken: No action needed - Behavioral Observations During evaluation process patient: able to answer questions - Treatment / Educational Needs: Treatment/Education Needs: Treatment consisted of patient education on the role of the Speech Pathologist. Patient's plan of care and golas were communicated as well as scheduling and attendance policies. Recommendations for initial home program were shared. Patient demonstrated understanding and verbalized agreement. - Impression/Summary Laryngeal Penetration: No Tracheal Aspiration: no Patient presents with: Normal swallow at eval Risk of Aspiration: Minimal Risk of nutritional compromise: None Evaluation and Findings: Due to postural changes, patient was sitting with head forward and leaning forward. No penetration or aspiration seen, trace residue seen. Patient safe for PO diet, mechanical soft ground meats recommended due to fatigue of patient. PO feeds may need to be suppliemnted with PEG feeds due to limited intake. - Recommendations Solid diet recommendations: Mechanical Soft, Ground Meat - due to fatigue Dysphagia therapy with BALLAST INSPECTOR: no Recommended techniques: Fully Upright During Meal, Small Bites and Sips Supervision: requires assistance Information, Precautions and Recommendations: Patient (Written) - Time Total Time: 15 - Plan of Care Patient to follow-up with referring physician: Yes Strategies to optimize patient understanding include:: ongoing assessment of educational needs, implementation of educational strategies, and re-education. - - -: Thank you for the opportunity to work with this patient and his/her family. Should you have any questions about this patient's plan or progress, I can be reached at [phone]. Charge G Code? - - -: Yes ST F.L. Impairment Category - Rationale Based On Rationale Based On: Func. Asses. Tool Results - Swallowing Current G8996: CJ 20-39% Impaired Goal G8997: CJ 20-39% Impaired Discharge G8998: CJ 20-39% Impaired
== END ==
LOC: RAD 07:45
PROVIDERS: ATTEND Internal Medicine
DX: R13.19 Other dysphagia (principal); I10 Essential (primary) hypertension; E11.9 Type 2 diabetes mellitus without complications; B20 Human immunodeficiency virus [HIV] disease; R56.9 Unspecified convulsions; B19.20 Unspecified viral hepatitis C without hepatic coma; I25.10 Atherosclerotic heart disease of native coronary artery without angina pectoris; E78.5 Hyperlipidemia, unspecified; M19.90 Unspecified osteoarthritis, unspecified site
CPT/HCPCS: 74230; 92611; G8996; G8997; G8998

== ENCOUNTER 2018-01-01 11:59 | Inpatient (IN) | payer MEDICARE, MEDICAID ==
[2018-01-01] MEDS ORDERED: NORMAL SALINE 1000 ML 1,000 ML IV PRN ×2 (12:25→21:35)
--- NOTE | 2018-01-01 12:25 | ER Document Report ---
ED General - General Stated Complaint: ALTERRED MENTAL STATUS Time Seen by Provider: 01/01/18 12:21 Mode of Arrival: Medic Information source: Emergency Med Personnel, Outside Facility Records Notes: This is a 57-year-old man with a history of HIV, hepatitis C, head and neck cancer with aspiration pneumonitis (G-tube), diabetes, hypertension and dementia. EMS was called to the [facility] [place] [facility] because of a low blood pressure which the intermediate reported as a systolic in the 50s. When EMS arrived, they noted that the patient's blood pressure was 100/60. The intermediate did state that he seemed to be less active than normal. TRAVEL OUTSIDE OF THE [place] IN LAST 30 DAYS: No - HPI Onset: This morning Onset/Duration: Gradual Quality of pain: No pain Severity: None Pain Level: Denies Associated symptoms: denies: Chest pain, Fever, Shortness of breath Exacerbated by: Denies Relieved by: Denies Similar symptoms previously: No Recently seen / treated by doctor: Yes - Related Data Allergies/Adverse Reactions: No Known Drug Allergies Allergy (Verified 11/08/17 12:12) olive extract [[place]] Allergy (Verified 11/08/17 12:10) Shortness of Breath Past Medical History - General Information source: Outside Facility Records - Social History Smoking Status: Never Smoker Cigarette use (# per day): No Chew tobacco use (# tins/day): No Frequency of alcohol use: None Drug Abuse: None Lives with: [facility] Family History: Reviewed & Not Pertinent Patient has suicidal ideation: No Patient has homicidal ideation: No - Past Medical History Cardiac Medical History: Reports: Hx Coronary Artery Disease, Hx Hypercholesterolemia, Hx Hypertension Denies: Hx Heart Attack Pulmonary Medical History: Reports: Hx Pneumonia Denies: Hx Asthma, Hx Bronchitis, Hx COPD, Hx Tuberculosis Neurological Medical History: Reports: Hx Seizures - LAST ONE 3 WEEKS . Denies : Hx Cerebrovascular Accident Endocrine Medical History: Reports: Hx Diabetes Mellitus Type 2 Renal/ Medical History: Denies: Hx Peritoneal Dialysis GI Medical History: Reports: Hx Hepatitis - HEP C,HIV+. Denies: Hx Hiatal Hernia, Hx Ulcer Musculoskeltal Medical History: Reports Hx Arthritis Psychiatric Medical History: Denies: Hx Depression Infectious Medical History: Reports: Hx Hepatitis - HEP C,HIV+, Hx HIV Past Surgical History: Reports: Hx Cardiac Catheterization, Hx Cardiac Surgery - stent placement, Hx Coronary Stent, Hx Orthopedic Surgery - lumbar surgery, Other - peg. Denies: Hx Open Heart Surgery, Hx Pacemaker - Immunizations Hx Diphtheria, Pertussis, Tetanus Vaccination: Yes - one year per pt. Review of Systems - Review of Systems Notes: Review of systems: Constitutional: Denies fever, chills. EENT: Denies ear pain, sinus tenderness, throat pain, throat swelling. Cardiovascular: Denies chest pain, palpitations, dyspnea or edema. Respiratory: Denies wheezing, cough, hemoptysis. Abdomen: Denies abdominal pain, nausea, vomiting, diarrhea. Denies BRBPR or melena. Genitourinary: Denies dysuria, pyuria, hematuria, flank pain. Musculoskeletal: denies joint pain or swelling, denies back pain. Neurologic: See H&P Skin: Denies rash, lesions. Physical Exam - Vital signs Vitals: Resp 16 01/01/18 12:15 Notes: Physical exam: GENERAL: 57-year-old man, lying in stretcher, dementia, he has a G-tube and a chronic Osman. Patient's temperature is 97.1 rectally. He is minimally responsive. HEAD: Atraumatic, normocephalic. EYES: Pupils equal round and reactive to light, extraocular movements intact, sclera anicteric, conjunctiva are normal. ENT: Moist mucous membranes. NECK: Normal range of motion, supple. Patient does have known head and neck cancer (he has some fullness around the neck). There is no stridor. Patient has no difficulty breathing. LUNGS: Breath sounds clear to auscultation bilaterally and equal. No wheezes rales or rhonchi. HEART: Regular rate and rhythm without murmurs, rubs or gallops. ABDOMEN: Soft, normoactive bowel sounds. No tenderness to palpation. No guarding, no rebound. No masses appreciated. The G-tube site is clear. Perineum: No scrotal breakdown, testes normal, penis normal. Rectum: There is superficial perirectal breakdown. He does have an external hemorrhoid. No obvious masses. Temperature 97.1. EXTREMITIES: Normal range of motion, no pitting or edema. No clubbing or cyanosis. NEUROLOGICAL: Dementia, minimally responsive as mentioned above. PSYCH: Normal mood, normal affect. SKIN: Some excoriation in the perirectal area. There is some fungal infiltration to the area (the patient is on Diflucan). Course - Re-evaluation Re-evalutation: 01/01/18 18:42 The patient was observed several hours. His mental status has significantly improved. He is now alert and will answer questions. He denies any pain. His vital signs are stable. The labs do show a significant hyponatremia and I discussed the case with Dr. Kwon will bring him in for continued workup. 01/01/18 18:46 Note: The patient looks euvolemic at this time. Therefore, I will treat the patient with fluid restriction until urine osmol's and lites, serum osmol's return. - Vital Signs Vital signs: Temp Pulse Resp BP Pulse Ox 98.7 F 69 16 107/71 100 01/01/18 19:19 01/01/18 17:44 01/01/18 17:44 01/01/18 17:44 01/01/18 17:44 - Laboratory Result Diagrams: 01/01/18 17:03 01/01/18 17:03 Laboratory results interpreted by me: 01/01/18 01/01/18 01/01/18 17:03 17:03 17:03 RBC 2.85 L Hgb 9.2 L Hct 27.6 L RDW 17.9 H Monocytes % 16.4 H Sodium 121.1 L Chloride 88 L Serum Osmolality 255 L Direct Bilirubin 0.5 H Alkaline Phosphatase 135 H - Diagnostic Test Radiology reviewed: Image reviewed, Reports reviewed - Chest x-ray shows no infiltrates Discharge - Discharge Clinical Impression: Hyponatremia Condition: Stable Disposition: ADMITTED INPATIENT Admitting Provider: Cher [facility] Admitted: Telemetry
--- NOTE | 2018-01-01 13:14 | RADIOLOGY REPORT (SQ) ---
EXAM DESCRIPTION: CHEST SINGLE VIEW COMPLETED DATE/TIME: 01/01/2018 1:04 pm REASON FOR STUDY: delta ms COMPARISON: 12/03/2017. EXAM PARAMETERS: NUMBER OF VIEWS: One view. TECHNIQUE: Single frontal radiographic view of the chest acquired. RADIATION DOSE: NA LIMITATIONS: None. FINDINGS: LUNGS AND PLEURA: No opacities, masses or pneumothorax. No pleural effusion. MEDIASTINUM AND HILAR STRUCTURES: No masses. Contour normal. HEART AND VASCULAR STRUCTURES: Heart normal in size. Normal vasculature. BONES: No acute findings. HARDWARE: Vascular access port. OTHER: No other significant finding. IMPRESSION: NO ACUTE RADIOGRAPHIC FINDING IN THE CHEST. TECHNICAL DOCUMENTATION: JOB ID: [id number] [employer] All Rights Reserved
[2018-01-01 17:14] LABS: ABSOLUTE EOSINOPHILS # (AUTO) 0.2 10^3/uL (0.0-0.6); ABSOLUTE LYMPHOCYTES (AUTO) 0.9 10^3/uL (0.5-4.7); ABSOLUTE MONOCYTES (AUTO) 0.7 10^3/uL (0.1-1.4); ABSOLUTE NEUT (AUTO) 2.6 10^3/uL (1.7-8.2); BASOPHILS % (AUTO) 0.5 % (0-2); EOSINOPHILS % (AUTO) 3.7 % (0-6); HEMATOCRIT 27.6 % (37.9-51.0); HEMOGLOBIN 9.2 g/dL (13.5-17.0); LYMPHOCYTES % (AUTO) 20.6 % (13-45); MEAN CORPUSCULAR HEMOGLOBIN 32.2 pg (27.0-33.4); MEAN CORPUSCULAR HGB CONC 33.3 g/dL (32.0-36.0); MEAN CORPUSCULAR VOLUME 97 fl (80-97); MONOCYTES % (AUTO) 16.4 % (3-13); PLATELET COUNT 253 10^3/uL (150-450); RED BLOOD COUNT 2.85 10^6/uL (4.35-5.55); RED CELL DISTRIBUTION WIDTH 17.9 % (11.5-14.0); SEGMENTED NEUTROPHILS % (AUTO) 58.8 % (42-78); TOTAL CELLS COUNTED % (AUTO) 100 %; WHITE BLOOD COUNT 4.4 10^3/uL (4.0-10.5)
[2018-01-01 17:33] LABS: ALANINE AMINOTRANSFERASE 48 U/L (21-72); ALBUMIN 3.7 g/dL (3.5-5.0); ALKALINE PHOSPHATASE 135 U/L (38-126); ANION GAP 10 (5-19); ASPARTATE AMINO TRANSFERASE 52 U/L (17-59); BILIRUBIN,DIRECT 0.5 mg/dL (0.0-0.4); BILIRUBIN,TOTAL 0.5 mg/dL (0.2-1.3); BLOOD UREA NITROGEN 11 mg/dL (7-20); CALCIUM 9.7 mg/dL (8.4-10.2); CARBON DIOXIDE 23 mmol/L (22-30); CHLORIDE 88 mmol/L (98-107); GLUCOSE 97 mg/dL (75-110); POTASSIUM 4.8 mmol/L (3.6-5.0); SODIUM 121.1 mmol/L (137-145); TOTAL PROTEIN 7.8 g/dL (6.3-8.2)
[2018-01-01 20:08] LABS: OSMOLALITY,URINE 308 mOsm/kg (300-900); URINE SODIUM 42 mmol/L (30-90)
[2018-01-01] MEDS ORDERED: ONDANSETRON HCL 8 MG TABLET GT PRN (21:33)
[2018-01-01] MEDS ORDERED: PROCHLORPERAZINE MALEATE 10 MG TABLET GT PRN (21:33)
[2018-01-01] MEDS ORDERED: (PENDING PHARMACY ID) (Valsartan [Diovan] 320 MG) GT SCH (21:45)
[2018-01-01] MEDS ORDERED: (PENDING PHARMACY ID) (Metoprolol Succinate [Toprol Xl 100 Mg Tablet] 150 MG) GT SCH (21:45)
[2018-01-01] MEDS ORDERED: (PENDING PHARMACY ID) (Metformin Hcl [Metformin Hcl] 1,000 MG) GT SCH (21:45)
[2018-01-01] MEDS ORDERED: NYSTATIN/DEXAMETH/DIPHEN SUSP 120 ML PO PRN (21:52)
[2018-01-01] MEDS ORDERED: LEVETIRACETAM 500 MG TABLET PO SCH (22:00)
[2018-01-01] MEDS ORDERED: PAROXETINE HCL 20 MG TABLET GT ONE (22:30)
[2018-01-01] MEDS ORDERED: AMLODIPINE BESYLATE 10 MG TABLET GT ONE (22:30)
[2018-01-01] MEDS ORDERED: ENOXAPARIN SODIUM INJ 40 MG/0.4 ML DISP.SYRIN SUBCUT ONE (22:30)
[2018-01-01] MEDS: LEVETIRACETAM ORAL SOLN 500 MG/5 ML UDCUP GT SCH (23:20)
[2018-01-01] MEDS: RALTEGRAVIR POTASSIUM 400 MG TABLET GT SCH (23:23)
[2018-01-01] MEDS: GABAPENTIN 400 MG CAPSULE GT SCH (23:34)
[2018-01-02] MEDS: METFORMIN HCL 500 MG TABLET GT SCH ×2 (07:58→19:13)
[2018-01-02 10:28] LABS: HEMOGLOBIN 8.9 g/dL (13.5-17.0); MEAN CORPUSCULAR HEMOGLOBIN 32.8 pg (27.0-33.4); MEAN CORPUSCULAR HGB CONC 34.2 g/dL (32.0-36.0); MEAN CORPUSCULAR VOLUME 96 fl (80-97); PLATELET COUNT 236 10^3/uL (150-450); RED BLOOD COUNT 2.71 10^6/uL (4.35-5.55); RED CELL DISTRIBUTION WIDTH 17.9 % (11.5-14.0); WHITE BLOOD COUNT 3.4 10^3/uL (4.0-10.5)
[2018-01-02] MEDS: METOPROLOL SUCCINATE 50 MG TAB.SR.24H PO SCH (10:42)
[2018-01-02] MEDS: AMLODIPINE BESYLATE 10 MG TABLET GT SCH (10:42)
[2018-01-02] MEDS: VALSARTAN 160 MG TABLET GT SCH (10:42)
[2018-01-02 10:49] LABS: ALANINE AMINOTRANSFERASE 51 U/L (21-72); ALBUMIN 3.7 g/dL (3.5-5.0); ALKALINE PHOSPHATASE 96 U/L (38-126); ANION GAP 9 (5-19); ASPARTATE AMINO TRANSFERASE 54 U/L (17-59); BILIRUBIN,DIRECT 0.5 mg/dL (0.0-0.4); BILIRUBIN,TOTAL 0.5 mg/dL (0.2-1.3); BLOOD UREA NITROGEN 8 mg/dL (7-20); CALCIUM 9.9 mg/dL (8.4-10.2); CARBON DIOXIDE 22 mmol/L (22-30); CHLORIDE 95 mmol/L (98-107); GLUCOSE 96 mg/dL (75-110); POTASSIUM 4.6 mmol/L (3.6-5.0); SODIUM 126.2 mmol/L (137-145); TOTAL PROTEIN 7.7 g/dL (6.3-8.2)
[2018-01-02 10:51] LABS: ABSOLUTE MONOCYTES # (MANUAL) 0.7 10^3/uL (0.1-1.4); ABSOLUTE NEUTROPHILS# (MANUAL) 1.6 10^3/uL (1.7-8.2); BASOPHILS % (MANUAL) 1 % (0-2); EOSINOPHILS % (MANUAL) 4 % (0-6); LYMPHOCYTES % (MANUAL) 28 % (13-45); MONOCYTES % (MANUAL) 21 % (3-13); SEGMENTED NEUTROPHILS % (MAN) 46 % (42-78); TOTAL CELLS COUNTED 100
[2018-01-02 10:52] LABS: ANISOCYTOSIS 1+; PLATELET COMMENT ADEQUATE; TOXIC GRANULATION 1+
[2018-01-02] MEDS: RALTEGRAVIR POTASSIUM 400 MG TABLET GT SCH ×2 (10:56→23:06)
[2018-01-02] MEDS: CETIRIZINE 5 MG TABLET GT SCH (10:56)
[2018-01-02] MEDS: PAROXETINE HCL 20 MG TABLET GT SCH (10:56)
[2018-01-02] MEDS: RITONAVIR 100 MG TABLET GT SCH (10:56)
[2018-01-02] MEDS: ATORVASTATIN CALCIUM 10 MG TABLET GT SCH (10:56)
[2018-01-02] MEDS: GABAPENTIN 400 MG CAPSULE GT SCH ×2 (10:57→23:02)
[2018-01-02] MEDS: ENOXAPARIN SODIUM INJ 40 MG/0.4 ML DISP.SYRIN SUBCUT SCH (10:57)
[2018-01-02] MEDS: LEVETIRACETAM ORAL SOLN 500 MG/5 ML UDCUP GT SCH ×2 (10:57→23:06)
--- NOTE | 2018-01-02 21:18 | PDOC PROGRESS REPORT ---
Subjective Progress Note for:: 01/02/18 Subjective:: Patient was seen by the bedside, he was admitted for the management of hyponatremia associated with confusion, is alert oriented to time place and person Reason For Visit: HYPONATREMIA Physical Exam Vital Signs: Temp Pulse Resp BP Pulse Ox 98.4 F 74 16 118/65 100 01/02/18 18:23 01/02/18 18:23 01/02/18 18:23 01/02/18 18:23 01/02/18 18:23 Intake & Output 01/01/18 01/02/18 01/03/18 06:59 06:59 06:59 Intake Total 100 Output Total 1200 Balance -1100 General appearance: PRESENT: no acute distress Eye exam: PRESENT: PERRLA Respiratory exam: PRESENT: clear to auscultation melba Cardiovascular exam: PRESENT: +S1, +S2 GI/Abdominal exam: PRESENT: soft Neurological exam: PRESENT: alert, CN II-XII grossly intact Results Laboratory Results: 01/02/18 10:07 01/02/18 10:07 01/02/18 01/02/18 10:07 10:07 WBC 3.4 L RBC 2.71 L Hgb 8.9 L Hct 26.0 L MCV 96 MCH 32.8 MCHC 34.2 RDW 17.9 H Plt Count 236 Seg Neutrophils % Not Reportable Lymphocytes % Not Reportable Monocytes % Not Reportable Eosinophils % Not Reportable Basophils % Not Reportable Absolute Neutrophils Not Reportable Absolute Lymphocytes Not Reportable Absolute Monocytes Not Reportable Absolute Eosinophils Not Reportable Absolute Basophils Not Reportable Sodium 126.2 L Potassium 4.6 Chloride 95 L Carbon Dioxide 22 Anion Gap 9 BUN 8 Creatinine 0.52 Est GFR ( Amer) > 60 Est GFR (Non-Af Amer) > 60 Glucose 96 Calcium 9.9 Total Bilirubin 0.5 AST 54 ALT 51 Alkaline Phosphatase 96 Total Protein 7.7 Albumin 3.7 Impressions: Chest X-Ray 01/01/18 12:25 IMPRESSION: NO ACUTE RADIOGRAPHIC FINDING IN THE CHEST. Assessment & Plan - Diagnosis (1) Hyponatremia Is this a current diagnosis for this admission?: Yes
--- NOTE | 2018-01-02 21:18 | PDOC H&P ---
History of Present Illness Admission Date/PCP: 01/01/18 19:09 GE HOLMAN MD History of Present Illness: RAE MONTEMAYOR is a 57 year old male, resident of the retirement at [place], history of HIV disease, head and neck cancer, EMS was called to the facility to have patient transferred to the emergency room for evaluation of low blood pressure but when EMS arrived in the facility the blood pressure was normal but the facility wants patient transferred anyway to the emergency room for evaluation because he was not acting right. In the emergency room he was evaluated he was found to have severe hyponatremia, the sodium was 121. When I saw patient he was not overly confused but there was subtle confusion with disorientation to place and time. Past Medical History Cardiac Medical History: Reports: Coronary Artery Disease, Hyperlipidema, Hypertension Denies: Myocardial Infarction Pulmonary Medical History: Reports: Pneumonia Denies: Asthma, Bronchitis, Chronic Obstructive Pulmonary Disease (COPD), Tuberculosis Neurological Medical History: Reports: Seizures - LAST ONE 3 WEEKS Endocrine Medical History: Reports: Diabetes Mellitus Type 2 GI Medical History: Reports: Hepatitis - HEP C,HIV+ Denies: Hiatal Hernia Musculoskeltal Medical History: Reports: Arthritis Psychiatric Medical History: Denies: Depression Infectious Medical History: Reports: HIV Past Surgical History Past Surgical History: Reports: Cardiac Catheterization, Coronary Stent, Orthopedic Surgery - lumbar surgery, Other - peg Denies: Pacemaker Social History Lives with: Long Term Smoking Status: Never Smoker Frequency of Alcohol Use: None Hx Recreational Drug Use: No Drugs: None Hx Prescription Drug Abuse: No - Advance Directive Resuscitation Status: Do Not Resuscitate Family History Family History: Reviewed & Not Pertinent Parental Family History Reviewed: Yes Children Family History Reviewed: Yes Sibling(s) Family History Reviewed.: Yes Medication/Allergy Home Medications: Amlodipine Besylate [Norvasc 10 mg Tablet] 10 mg GT DAILY 12/03/17 Atorvastatin Calcium [Lipitor 10 mg Tablet] 10 mg GT DAILY 12/03/17 Fluconazole [Diflucan 100 mg Tablet] 100 mg GT DAILY 12/03/17 Gabapentin [Neurontin 400 mg Capsule] 800 mg GT Q12 12/03/17 Insulin Aspart [Novolog Insulin (Aspart) 100 unit/mL] See Protocol SQ ASDIR PRN 12/03/17 Ketoconazole [Nizoral] 1 applic TOP Q3DAYS 12/03/17 Levetiracetam [Keppra 500 mg Tablet] 500 mg GT Q12 12/03/17 Levocetirizine Dihydrochloride [Xyzal] 5 mg GT DAILY 12/03/17 Metformin HCl 1,000 mg GT BIDBS 12/03/17 Metoprolol Succinate [Toprol XL 100 mg Tablet] 150 mg GT DAILY 12/03/17 Nystatin/Dexameth/Diphen [Magic Mouthwash] 5 ml GT Q4HP PRN 12/03/17 Ondansetron HCl [Zofran 8 mg Tablet] 8 mg GT Q8HP PRN 12/03/17 Paroxetine HCl [Paxil 20 mg Tablet] 20 mg GT DAILY 12/03/17 Prochlorperazine Maleate [Compazine 10 mg Tablet] 10 mg GT Q6HP PRN 12/03/17 Valsartan [Diovan] 320 mg GT DAILY 12/03/17 Raltegravir Potassium [Isentress 400 mg Tablet] 400 mg GT Q12 12/04/17 Ritonavir [Norvir 100 mg Tablet] 100 mg GT DAILY 12/04/17 Allergies/Adverse Reactions: No Known Drug Allergies Allergy (Verified 11/08/17 12:12) olive extract [[place]] Allergy (Verified 11/08/17 12:10) Shortness of Breath Review of Systems Constitutional: PRESENT: fatigue Ears: ABSENT: hearing changes Cardiovascular: ABSENT: as per HPI, chest pain, dyspnea on exertion, edema, orthropnea, palpitations, other Respiratory: ABSENT: cough, hemoptysis Gastrointestinal: ABSENT: abdominal pain, constipation, diarrhea, hematemesis, hematochezia, nausea, vomiting Genitourinary: ABSENT: dysuria, hematuria Musculoskeletal: ABSENT: joint swelling Integumentary: ABSENT: rash, wounds Neurological: PRESENT: confusion. ABSENT: abnormal gait, abnormal speech, dizziness, focal weakness, syncope Psychiatric: ABSENT: anxiety, depression, homidical ideation, suicidal ideation Endocrine: ABSENT: cold intolerance, heat intolerance, menstrual abnormalities, polydipsia, polyuria Hematologic/Lymphatic: ABSENT: easy bleeding, easy bruising, lymphadenopathy Physical Exam Vital Signs: Temp Pulse Resp BP Pulse Ox 98.4 F 74 16 118/65 100 01/02/18 18:23 01/02/18 18:23 01/02/18 18:23 02/13/18 18:23 01/02/18 18:23 Intake & Output 01/01/18 01/02/18 01/03/18 06:59 06:59 06:59 Intake Total 100 Output Total 1200 Balance -1100 General appearance: PRESENT: no acute distress Head exam: PRESENT: atraumatic, normocephalic Eye exam: PRESENT: PERRLA Ear exam: PRESENT: normal external ear exam Mouth exam: PRESENT: moist, tongue midline Neck exam: PRESENT: full ROM Respiratory exam: PRESENT: clear to auscultation melba Cardiovascular exam: PRESENT: RRR, +S1, +S2 Vascular exam: PRESENT: normal capillary refill GI/Abdominal exam: PRESENT: normal bowel sounds, soft, other - There is a PEG tube in place Rectal exam: PRESENT: deferred Neurological exam: PRESENT: alert, CN II-XII grossly intact Psychiatric exam: PRESENT: appropriate affect, normal mood. ABSENT: homicidal ideation, suicidal ideation Skin exam: PRESENT: dry, intact, warm Results Laboratory Results: 01/02/18 10:07 01/02/18 10:07 01/02/18 01/02/18 10:07 10:07 WBC 3.4 L RBC 2.71 L Hgb 8.9 L Hct 26.0 L MCV 96 MCH 32.8 MCHC 34.2 RDW 17.9 H Plt Count 236 Seg Neutrophils % Not Reportable Lymphocytes % Not Reportable Monocytes % Not Reportable Eosinophils % Not Reportable Basophils % Not Reportable Absolute Neutrophils Not Reportable Absolute Lymphocytes Not Reportable Absolute Monocytes Not Reportable Absolute Eosinophils Not Reportable Absolute Basophils Not Reportable Sodium 126.2 L Potassium 4.6 Chloride 95 L Carbon Dioxide 22 Anion Gap 9 BUN 8 Creatinine 0.52 Est GFR ( Amer) > 60 Est GFR (Non-Af Amer) > 60 Glucose 96 Calcium 9.9 Total Bilirubin 0.5 AST 54 ALT 51 Alkaline Phosphatase 96 Total Protein 7.7 Albumin 3.7 Impressions: Chest X-Ray 01/01/18 12:25 IMPRESSION: NO ACUTE RADIOGRAPHIC FINDING IN THE CHEST. Assessment & Plan - Diagnosis (1) Hyponatremia Is this a current diagnosis for this admission?: Yes Plan: He has hyponatremia due to SIADH, this is chronic, he is admitted to slowly correct the sodium to 125. (2) HIV (human immunodeficiency virus infection) Is this a current diagnosis for this admission?: Yes (3) Head and neck cancer Is this a current diagnosis for this admission?: Yes
[2018-01-03 05:23] LABS: ANION GAP 8 (5-19); BLOOD UREA NITROGEN 5 mg/dL (7-20); CALCIUM 9.8 mg/dL (8.4-10.2); CARBON DIOXIDE 24 mmol/L (22-30); CHLORIDE 95 mmol/L (98-107); GLUCOSE 88 mg/dL (75-110); POTASSIUM 4.4 mmol/L (3.6-5.0); SODIUM 126.8 mmol/L (137-145)
[2018-01-03] MEDS: ENOXAPARIN SODIUM INJ 40 MG/0.4 ML DISP.SYRIN SUBCUT SCH (10:20)
[2018-01-03] MEDS: GABAPENTIN 400 MG CAPSULE GT SCH ×2 (10:21→22:10)
[2018-01-03] MEDS: AMLODIPINE BESYLATE 10 MG TABLET GT SCH (10:21)
[2018-01-03] MEDS: PAROXETINE HCL 20 MG TABLET GT SCH (10:22)
[2018-01-03] MEDS: ATORVASTATIN CALCIUM 10 MG TABLET GT SCH (10:22)
[2018-01-03] MEDS: VALSARTAN 160 MG TABLET GT SCH (10:23)
[2018-01-03] MEDS: METOPROLOL SUCCINATE 50 MG TAB.SR.24H PO SCH (10:24)
[2018-01-03] MEDS: METFORMIN HCL 500 MG TABLET GT SCH ×2 (10:24→18:40)
[2018-01-03] MEDS: RALTEGRAVIR POTASSIUM 400 MG TABLET GT SCH ×2 (10:24→22:10)
[2018-01-03] MEDS: CETIRIZINE 5 MG TABLET GT SCH (10:25)
[2018-01-03] MEDS: LEVETIRACETAM ORAL SOLN 500 MG/5 ML UDCUP GT SCH ×2 (10:26→22:10)
[2018-01-03] MEDS: RITONAVIR 100 MG TABLET GT SCH (10:26)
--- NOTE | 2018-01-03 18:33 | PDOC PROGRESS REPORT ---
Subjective Progress Note for:: 01/03/18 Subjective:: He was seen by the bedside, he has diarrhea otherwise is doing well Reason For Visit: HYPONATREMIA Physical Exam Vital Signs: Temp Pulse Resp BP Pulse Ox 98.2 F 72 20 116/78 100 01/03/18 16:54 01/03/18 16:54 01/03/18 16:54 01/03/18 16:54 01/03/18 16:54 Intake & Output 01/02/18 01/03/18 01/04/18 06:59 06:59 06:59 Intake Total 100 100 565 Output Total 1200 900 660 Balance -1100 -800 -95 Weight 59.6 kg General appearance: PRESENT: no acute distress Eye exam: PRESENT: PERRLA Respiratory exam: PRESENT: clear to auscultation melba Cardiovascular exam: PRESENT: +S1, +S2 GI/Abdominal exam: PRESENT: soft Neurological exam: PRESENT: alert Results Laboratory Results: 01/02/18 10:07 01/03/18 04:20 01/03/18 04:20 Sodium 126.8 L Potassium 4.4 Chloride 95 L Carbon Dioxide 24 Anion Gap 8 BUN 5 L Creatinine 0.44 L Est GFR ( Amer) > 60 Est GFR (Non-Af Amer) > 60 Glucose 88 Calcium 9.8 Impressions: Chest X-Ray 01/01/18 12:25 IMPRESSION: NO ACUTE RADIOGRAPHIC FINDING IN THE CHEST. Assessment & Plan - Diagnosis (1) Hyponatremia Is this a current diagnosis for this admission?: Yes (2) HIV (human immunodeficiency virus infection) Is this a current diagnosis for this admission?: Yes
[2018-01-04 05:43] LABS: ANION GAP 10 (5-19); BLOOD UREA NITROGEN 4 mg/dL (7-20); CALCIUM 9.6 mg/dL (8.4-10.2); CARBON DIOXIDE 22 mmol/L (22-30); CHLORIDE 94 mmol/L (98-107); GLUCOSE 113 mg/dL (75-110); POTASSIUM 4.1 mmol/L (3.6-5.0)
[2018-01-04] MEDS: METFORMIN HCL 500 MG TABLET GT SCH ×2 (07:36→17:06)
[2018-01-04] MEDS: ENOXAPARIN SODIUM INJ 40 MG/0.4 ML DISP.SYRIN SUBCUT SCH (11:53)
[2018-01-04] MEDS: RALTEGRAVIR POTASSIUM 400 MG TABLET GT SCH ×2 (11:53→21:29)
[2018-01-04] MEDS: LEVETIRACETAM ORAL SOLN 500 MG/5 ML UDCUP GT SCH ×2 (11:53→21:29)
[2018-01-04] MEDS: ATORVASTATIN CALCIUM 10 MG TABLET GT SCH (11:54)
[2018-01-04] MEDS: CETIRIZINE 5 MG TABLET GT SCH (11:54)
[2018-01-04] MEDS: PAROXETINE HCL 20 MG TABLET GT SCH (11:54)
[2018-01-04] MEDS: RITONAVIR 100 MG TABLET GT SCH (11:54)
[2018-01-04] MEDS: GABAPENTIN 400 MG CAPSULE GT SCH ×2 (11:54→21:29)
[2018-01-04] MEDS: METOPROLOL SUCCINATE 50 MG TAB.SR.24H PO SCH (11:55)
[2018-01-04] MEDS: VALSARTAN 160 MG TABLET GT SCH (11:55)
[2018-01-04] MEDS: AMLODIPINE BESYLATE 10 MG TABLET GT SCH (11:55)
--- NOTE | 2018-01-04 20:42 | PDOC DISCHARGE SUMMARY ---
General - Admit/Disc Date/PCP Admission Date/Primary Care Provider: 01/01/18 19:09 GE HOLMAN MD Discharge Date: 01/04/18 - Discharge Diagnosis (1) Hyponatremia Is this a current diagnosis for this admission?: Yes (2) CAD (coronary artery disease), [place] coronary artery Is this a current diagnosis for this admission?: Yes (3) Diabetes mellitus, type II Is this a current diagnosis for this admission?: Yes (4) HIV (human immunodeficiency virus infection) Is this a current diagnosis for this admission?: Yes (5) Hypertension Is this a current diagnosis for this admission?: Yes - Additional Information Resuscitation Status: Do Not Resuscitate Discharge Activity: Activity As Tolerated Home Medications: Amlodipine Besylate [Norvasc 10 mg Tablet] 10 mg GT DAILY 12/03/17 Atorvastatin Calcium [Lipitor 10 mg Tablet] 10 mg GT DAILY 12/03/17 Gabapentin [Neurontin 400 mg Capsule] 800 mg GT Q12 12/03/17 Insulin Aspart [Novolog Insulin (Aspart) 100 unit/mL] See Protocol SQ ASDIR PRN 12/03/17 Ketoconazole [Nizoral] 1 applic TOP Q3DAYS 12/03/17 Levetiracetam [Keppra 500 mg Tablet] 500 mg GT Q12 12/03/17 Levocetirizine Dihydrochloride [Xyzal] 5 mg GT DAILY 12/03/17 Metformin HCl 1,000 mg GT BIDBS 12/03/17 Metoprolol Succinate [Toprol XL 100 mg Tablet] 150 mg GT DAILY 12/03/17 Nystatin/Dexameth/Diphen [Magic Mouthwash] 5 ml GT Q4HP PRN 12/03/17 Ondansetron HCl [Zofran 8 mg Tablet] 8 mg GT Q8HP PRN 12/03/17 Paroxetine HCl [Paxil 20 mg Tablet] 20 mg GT DAILY 12/03/17 Prochlorperazine Maleate [Compazine 10 mg Tablet] 10 mg GT Q6HP PRN 12/03/17 Valsartan [Diovan] 320 mg GT DAILY 12/03/17 Raltegravir Potassium [Isentress 400 mg Tablet] 400 mg GT Q12 12/04/17 Ritonavir [Norvir 100 mg Tablet] 100 mg GT DAILY 01/15/18 History of Present Illness History of Present Illness: RAE MONTEMAYOR is a 57 year old male, resident of the senior living at [place], history of HIV disease, head and neck cancer, EMS was called to the facility to have patient transferred to the emergency room for evaluation of low blood pressure but when EMS arrived in the facility the blood pressure was normal but the facility wants patient transferred anyway to the emergency room for evaluation because he was not acting right. In the emergency room he was evaluated he was found to have severe hyponatremia, the sodium was 121. When I saw patient he was not overly confused but there was subtle confusion with disorientation to place and time. Hospital Course Hospital Course: He has chronic hyponatremia due to SIADH, he was admitted because of mild encephalopathy, he was stuporous, the serum sodium was slowly corrected up to 125. with normal saline. He had diarrhea, negative for C. difficile toxin. Physical Exam Vital Signs: Temp Pulse Resp BP Pulse Ox 98.3 F 72 16 118/68 100 01/04/18 20:00 01/04/18 20:00 01/04/18 20:00 01/04/18 20:00 01/04/18 20:00 Intake & Output 01/03/18 01/04/18 01/05/18 06:59 06:59 06:59 Intake Total 100 1192 220 Output Total 900 2110 760 Balance -800 -918 -540 Weight 59.6 kg 63 kg General appearance: PRESENT: no acute distress Eye exam: PRESENT: PERRLA Respiratory exam: PRESENT: clear to auscultation melba Cardiovascular exam: PRESENT: +S1, +S2 GI/Abdominal exam: PRESENT: soft, other - PEG tube in place Neurological exam: PRESENT: alert Results Laboratory Results: 01/02/18 10:07 01/04/18 05:14 01/04/18 05:14 Sodium 126.0 L Potassium 4.1 Chloride 94 L Carbon Dioxide 22 Anion Gap 10 BUN 4 L Creatinine 0.47 L Est GFR ( Amer) > 60 Est GFR (Non-Af Amer) > 60 Glucose 113 H Calcium 9.6 Impressions: Chest X-Ray 01/01/18 12:25 IMPRESSION: NO ACUTE RADIOGRAPHIC FINDING IN THE CHEST.
--- NOTE | 2018-01-04 20:59 | PDOC TRANSFER SUMMARY ---
General - Admit/Disc Date/PCP Admission Date/Primary Care Provider: 01/01/18 19:09 GE HOLMAN MD Discharge Date: 01/04/18 - Discharge Diagnosis (1) Hyponatremia Is this a current diagnosis for this admission?: Yes (2) CAD (coronary artery disease), [place] coronary artery Is this a current diagnosis for this admission?: Yes (3) Diabetes mellitus, type II Is this a current diagnosis for this admission?: Yes (4) HIV (human immunodeficiency virus infection) Is this a current diagnosis for this admission?: Yes (5) Hypertension Is this a current diagnosis for this admission?: Yes - Additional Information Resuscitation Status: Do Not Resuscitate Discharge Activity: Activity As Tolerated Home Medications: Amlodipine Besylate [Norvasc 10 mg Tablet] 10 mg GT DAILY 12/03/17 Atorvastatin Calcium [Lipitor 10 mg Tablet] 10 mg GT DAILY 12/03/17 Gabapentin [Neurontin 400 mg Capsule] 800 mg GT Q12 12/03/17 Insulin Aspart [Novolog Insulin (Aspart) 100 unit/mL] See Protocol SQ ASDIR PRN 12/03/17 Ketoconazole [Nizoral] 1 applic TOP Q3DAYS 12/03/17 Levetiracetam [Keppra 500 mg Tablet] 500 mg GT Q12 12/03/17 Levocetirizine Dihydrochloride [Xyzal] 5 mg GT DAILY 12/03/17 Metformin HCl 1,000 mg GT BIDBS 12/03/17 Metoprolol Succinate [Toprol XL 100 mg Tablet] 150 mg GT DAILY 12/03/17 Nystatin/Dexameth/Diphen [Magic Mouthwash] 5 ml GT Q4HP PRN 12/03/17 Ondansetron HCl [Zofran 8 mg Tablet] 8 mg GT Q8HP PRN 12/03/17 Paroxetine HCl [Paxil 20 mg Tablet] 20 mg GT DAILY 12/03/17 Prochlorperazine Maleate [Compazine 10 mg Tablet] 10 mg GT Q6HP PRN 12/03/17 Valsartan [Diovan] 320 mg GT DAILY 12/03/17 Raltegravir Potassium [Isentress 400 mg Tablet] 400 mg GT Q12 12/04/17 Ritonavir [Norvir 100 mg Tablet] 100 mg GT DAILY 01/15/18 History of Present Illness Admission Date/PCP: 01/01/18 19:09 GE HOLMAN MD History of Present Illness: RAE MONTEMAYOR is a 57 year old male, resident of the long-term at [place], history of HIV disease, head and neck cancer, EMS was called to the facility to have patient transferred to the emergency room for evaluation of low blood pressure but when EMS arrived in the facility the blood pressure was normal but the facility wants patient transferred anyway to the emergency room for evaluation because he was not acting right. In the emergency room he was evaluated he was found to have severe hyponatremia, the sodium was 121. When I saw patient he was not overly confused but there was subtle confusion with disorientation to place and time. Hospital Course Hospital Course: See discharge summary for details Physical Exam Vital Signs: Temp Pulse Resp BP Pulse Ox 98.3 F 72 16 118/68 100 01/04/18 20:00 01/04/18 20:00 01/04/18 20:00 01/04/18 20:00 01/04/18 20:00 Intake & Output 01/03/18 01/04/18 01/05/18 06:59 06:59 06:59 Intake Total 100 1192 220 Output Total 900 2110 760 Balance -800 -918 -540 Weight 59.6 kg 63 kg Results Laboratory Results: 01/02/18 10:07 01/04/18 05:14 01/04/18 05:14 Sodium 126.0 L Potassium 4.1 Chloride 94 L Carbon Dioxide 22 Anion Gap 10 BUN 4 L Creatinine 0.47 L Est GFR ( Amer) > 60 Est GFR (Non-Af Amer) > 60 Glucose 113 H Calcium 9.6 Impressions: Chest X-Ray 01/01/18 12:25 IMPRESSION: NO ACUTE RADIOGRAPHIC FINDING IN THE CHEST.
[2018-01-05] MEDS: METFORMIN HCL 500 MG TABLET GT SCH (07:52)
[2018-01-05] MEDS: METOPROLOL SUCCINATE 50 MG TAB.SR.24H PO SCH (09:31)
[2018-01-05] MEDS: ENOXAPARIN SODIUM INJ 40 MG/0.4 ML DISP.SYRIN SUBCUT SCH (09:31)
[2018-01-05] MEDS: CETIRIZINE 5 MG TABLET GT SCH (09:32)
[2018-01-05] MEDS: VALSARTAN 160 MG TABLET GT SCH (09:32)
[2018-01-05] MEDS: RITONAVIR 100 MG TABLET GT SCH (09:33)
[2018-01-05] MEDS: RALTEGRAVIR POTASSIUM 400 MG TABLET GT SCH (09:33)
[2018-01-05] MEDS: ATORVASTATIN CALCIUM 10 MG TABLET GT SCH (09:33)
[2018-01-05] MEDS: AMLODIPINE BESYLATE 10 MG TABLET GT SCH (09:33)
[2018-01-05] MEDS: GABAPENTIN 400 MG CAPSULE GT SCH (09:33)
[2018-01-05] MEDS: LEVETIRACETAM ORAL SOLN 500 MG/5 ML UDCUP GT SCH (09:34)
[2018-01-05] MEDS: PAROXETINE HCL 20 MG TABLET GT SCH (09:34)
[2018-01-05 12:10] VITALS: BP 96/64
== END 2018-01-05 15:00 | DRG 643 ==
LOC: ER 11:59 → OBSVTOIN 19:09 → EH 19:09 → INTOOBSV 19:09 → EH 01-02 13:12 → 4N 01-02 18:22 → UNDODISIN 01-05 15:00 → 4N 01-05 15:33
PROVIDERS: ADMIT Internal Medicine; ATTEND Internal Medicine
DX: E22.2 Syndrome of inappropriate secretion of antidiuretic hormone (principal); B20 Human immunodeficiency virus [HIV] disease; C79.89 Secondary malignant neoplasm of other specified sites; F03.90 Unspecified dementia, unspecified severity, without behavioral disturbance, psychotic disturbance, mood disturbance, and anxiety; Z66 Do not resuscitate; R41.82 Altered mental status, unspecified; C76.0 Malignant neoplasm of head, face and neck; B19.20 Unspecified viral hepatitis C without hepatic coma; E11.9 Type 2 diabetes mellitus without complications; I10 Essential (primary) hypertension; I25.10 Atherosclerotic heart disease of native coronary artery without angina pectoris; E78.00 Pure hypercholesterolemia, unspecified; R56.9 Unspecified convulsions; Z93.1 Gastrostomy status; Z79.84 Long term (current) use of oral hypoglycemic drugs; Z79.4 Long term (current) use of insulin; Z79.899 Other long term (current) drug therapy
CPT/HCPCS: 36415; 71045; 80048; 80053; 82962; 83930; 83935; 84300; 85025; 87493; 99285; G0378; J1650; J3490; J7030

== ENCOUNTER 2018-01-30 11:25 | Inpatient (IN) | payer MEDICARE, MEDICAID ==
--- NOTE | 2018-01-30 11:41 | ER Document Report ---
ED General - General Stated Complaint: ALTERED MENTAL STATUS Time Seen by Provider: 01/30/18 11:36 Cannot obtain history due to: Dementia, Altered mental status Notes: 57-year-old senior living patient. History of HIV. Bedridden. Unable to ambulate. Reportedly having change in mental status today. EMS arrived. Temperature reported as 101. On arrival to the emergency department patient somnolent. Temperature rectally of 103.3. Patient denies any complaints. Mild dry cough. And is frail TRAVEL OUTSIDE OF THE [place] IN LAST 30 DAYS: No - HPI Onset: This morning Onset/Duration: Gradual - Related Data Allergies/Adverse Reactions: No Known Drug Allergies Allergy (Verified 11/08/17 12:12) olive extract [[place]] Allergy (Verified 11/08/17 12:10) Shortness of Breath Past Medical History - General Information source: Emergency Med Personnel, [facility] Records - Social History Smoking Status: Former Smoker Cigarette use (# per day): No Frequency of alcohol use: None Drug Abuse: None Lives with: Jail Family History: Reviewed & Not Pertinent - Past Medical History Cardiac Medical History: Reports: Hx Coronary Artery Disease, Hx Hypercholesterolemia, Hx Hypertension Denies: Hx Heart Attack Pulmonary Medical History: Reports: Hx Pneumonia Denies: Hx Asthma, Hx Bronchitis, Hx COPD, Hx Tuberculosis Neurological Medical History: Reports: Hx Seizures - LAST ONE 3 WEEKS . Denies : Hx Cerebrovascular Accident Endocrine Medical History: Reports: Hx Diabetes Mellitus Type 2 Renal/ Medical History: Denies: Hx Peritoneal Dialysis GI Medical History: Reports: Hx Hepatitis - HEP C,HIV+. Denies: Hx Hiatal Hernia, Hx Ulcer Musculoskeltal Medical History: Reports Hx Arthritis Psychiatric Medical History: Denies: Hx Depression Infectious Medical History: Reports: Hx Hepatitis - HEP C,HIV+, Hx HIV Past Surgical History: Reports: Hx Cardiac Catheterization, Hx Cardiac Surgery - stent placement, Hx Coronary Stent, Hx Orthopedic Surgery - lumbar surgery, Other - peg. Denies: Hx Open Heart Surgery, Hx Pacemaker - Immunizations Hx Diphtheria, Pertussis, Tetanus Vaccination: Yes - one year per pt. Review of Systems - Review of Systems -: Yes ROS unobtainable due to patient's medical condition Physical Exam - Vital signs Interpretation: Tachycardic, Febrile - General General appearance: Appears well, Alert - HEENT Head: Normocephalic, Atraumatic Eyes: Normal Pupils: PERRL Mucous membranes: Dry Neck: Normal. No: Lymphadenopathy, Meningismus - Respiratory Respiratory status: No respiratory distress Chest status: Nontender Breath sounds: Nonproductive cough Chest palpation: Normal - Cardiovascular Rhythm: Tachycardia Heart sounds: Normal auscultation Murmur: No - Abdominal Inspection: Normal Distension: No distension Bowel sounds: Normal Tenderness: Nontender Organomegaly: No organomegaly - Back Back: Normal, Nontender - Extremities General upper extremity: Normal inspection, Nontender, Normal color, Normal ROM , Normal temperature General lower extremity: Normal inspection, Nontender, Normal color, Normal ROM , Normal temperature, Normal weight bearing. No: Gualberto's sign - Neurological Neuro grossly intact: Yes Cognition: Confused [place] Coma Scale Eye Opening: Spontaneous [place] Coma Scale Verbal: Confused [place] Coma Scale Motor: None - Obey some commands [place] Coma Scale Total: 9 Speech: Other - Slow to respond with speech Sensory: Normal - Psychological Associated symptoms: Normal affect, Normal mood - Skin Skin Temperature: Warm - No obvious decubitus ulcers present. Skin Moisture: Dry Skin Color: Normal Course - Re-evaluation Re-evalutation: 01/30/18 11:56 This is a 37-year-old male with altered mental status. History of HIV with liver failure. Lives in senior living. Fever 103. Will do CT head, chest x-ray , labs, lactic, blood culture, urinalysis. May have to do LP as well if no source is found. 01/30/18 12:10 Urine obtained was extremely thick. Based on previous urinalysis results will treat with some Zosyn. Adding a second liter of fluid to cover for sepsis protocols. We will still proceed with head. More than likely urine is the source at this time. Anticipation of admission shortly. 01/30/18 13:13 Laboratory 01/30/18 01/30/18 01/30/18 10:07 10:07 10:07 WBC 19.9 H RBC 3.14 L Hgb 10.0 L Hct 30.7 L MCV 98 H MCH 31.8 MCHC 32.5 RDW 18.5 H Plt Count 224 Total Counted 100 Seg Neutrophils % Not Reportable Seg Neuts % (Manual) 91 H Band Neutrophils % 2 L Lymphocytes % Not Reportable Lymphocytes % (Manual) 5 L Monocytes % Not Reportable Monocytes % (Manual) 2 L Eosinophils % Not Reportable Eosinophils % (Manual) 0 Basophils % Not Reportable Basophils % (Manual) 0 Absolute Neutrophils Not Reportable Abs Neuts (Manual) 18.5 H Absolute Lymphocytes Not Reportable Abs Lymphs (Manual) 1.0 Absolute Monocytes Not Reportable Abs Monocytes (Manual) 0.4 Absolute Eosinophils Not Reportable Absolute Eos (Manual) 0.0 Absolute Basophils Not Reportable Abs Basophils (Manual) 0.0 Toxic Granulation SLIGHT Toxic Vacuolation PRESENT Platelet Comment ADEQUATE Anisocytosis 1+ PT 16.0 H INR 1.20 VBG pH VBG pCO2 VBG HCO3 VBG Base Excess Sodium 133.0 L Potassium 4.7 Chloride 95 L Carbon Dioxide 20 L Anion Gap 18 BUN 46 H Creatinine 1.89 H Est GFR ( Amer) 44 L Est GFR (Non-Af Amer) 37 L Glucose 151 H POC Glucose Lactic Acid Calcium 10.2 Total Bilirubin 1.6 H Direct Bilirubin 1.1 H Neonat Total Bilirubin Not Reportable Neonat Direct Bilirubin Not Reportable Neonat Indirect Bili Not Reportable AST 44 ALT 30 Alkaline Phosphatase 81 Total Protein 8.7 H Albumin 4.4 Urine Color Urine Appearance Urine pH Ur Specific [place] Urine Protein Urine Glucose (UA) Urine Ketones Urine Blood Urine Nitrite Urine Bilirubin Urine Urobilinogen Ur Leukocyte Esterase Urine WBC (Auto) Urine RBC (Auto) Urine Bacteria (Auto) Urine WBC Clumps Urine Ascorbic Acid 01/30/18 01/30/18 01/30/18 11:43 11:43 12:15 WBC RBC Hgb Hct MCV MCH MCHC RDW Plt Count Total Counted Seg Neutrophils % Seg Neuts % (Manual) Band Neutrophils % Lymphocytes % Lymphocytes % (Manual) Monocytes % Monocytes % (Manual) Eosinophils % Eosinophils % (Manual) Basophils % Basophils % (Manual) Absolute Neutrophils Abs Neuts (Manual) Absolute Lymphocytes Abs Lymphs (Manual) Absolute Monocytes Abs Monocytes (Manual) Absolute Eosinophils Absolute Eos (Manual) Absolute Basophils Abs Basophils (Manual) Toxic Granulation Toxic Vacuolation Platelet Comment Anisocytosis PT INR VBG pH 7.40 VBG pCO2 34.0 L VBG HCO3 20.5 VBG Base Excess -3.4 Sodium Potassium Chloride Carbon Dioxide Anion Gap BUN Creatinine Est GFR ( Amer) Est GFR (Non-Af Amer) Glucose POC Glucose Lactic Acid 3.0 H Calcium Total Bilirubin Direct Bilirubin Neonat Total Bilirubin Neonat Direct Bilirubin Neonat Indirect Bili AST ALT Alkaline Phosphatase Total Protein Albumin Urine Color YELLOW Urine Appearance TURBID Urine pH 5.0 Ur Specific [place] 1.015 Urine Protein 100 H Urine Glucose (UA) NEGATIVE Urine Ketones NEGATIVE Urine Blood MODERATE H Urine Nitrite NEGATIVE Urine Bilirubin NEGATIVE Urine Urobilinogen 4.0 H Ur Leukocyte Esterase MODERATE H Urine WBC (Auto) >182 Urine RBC (Auto) >182 Urine Bacteria (Auto) 3+ Urine WBC Clumps MANY Urine Ascorbic Acid NEGATIVE 01/30/18 12:41 WBC RBC Hgb Hct MCV MCH MCHC RDW Plt Count Total Counted Seg Neutrophils % Seg Neuts % (Manual) Band Neutrophils % Lymphocytes % Lymphocytes % (Manual) Monocytes % Monocytes % (Manual) Eosinophils % Eosinophils % (Manual) Basophils % Basophils % (Manual) Absolute Neutrophils Abs Neuts (Manual) Absolute Lymphocytes Abs Lymphs (Manual) Absolute Monocytes Abs Monocytes (Manual) Absolute Eosinophils Absolute Eos (Manual) Absolute Basophils Abs Basophils (Manual) Toxic Granulation Toxic Vacuolation Platelet Comment Anisocytosis PT INR VBG pH VBG pCO2 VBG HCO3 VBG Base Excess Sodium Potassium Chloride Carbon Dioxide Anion Gap BUN Creatinine Est GFR ( Amer) Est GFR (Non-Af Amer) Glucose POC Glucose 129 H Lactic Acid Calcium Total Bilirubin Direct Bilirubin Neonat Total Bilirubin Neonat Direct Bilirubin Neonat Indirect Bili AST ALT Alkaline Phosphatase Total Protein Albumin Urine Color Urine Appearance Urine pH Ur Specific [place] Urine Protein Urine Glucose (UA) Urine Ketones Urine Blood Urine Nitrite Urine Bilirubin Urine Urobilinogen Ur Leukocyte Esterase Urine WBC (Auto) Urine RBC (Auto) Urine Bacteria (Auto) Urine WBC Clumps Urine Ascorbic Acid Chest X-Ray 01/30/18 11:50 IMPRESSION: NO ACUTE RADIOGRAPHIC FINDING IN THE CHEST. Head CT 01/30/18 11:50 IMPRESSION: No definite acute findings Subacute to chronic infarct right inferolateral cerebellar hemisphere new compared to prior brain MRI 08/28/2017. Chronic infarcts in the left cerebellar hemisphere, right occipital lobe, and right posterior frontal regions, unchanged. Old infarcts in the left basal ganglia and thalamus, bifrontal and biparietal white matter unchanged. EVIDENCE OF ACUTE STROKE: NO. - Laboratory Result Diagrams: 01/30/18 10:07 01/30/18 10:07 Laboratory results interpreted by me: 01/30/18 01/30/18 01/30/18 10:07 10:07 10:07 WBC 19.9 H RBC 3.14 L Hgb 10.0 L Hct 30.7 L MCV 98 H RDW 18.5 H Seg Neuts % (Manual) 91 H Band Neutrophils % 2 L Lymphocytes % (Manual) 5 L Monocytes % (Manual) 2 L Abs Neuts (Manual) 18.5 H PT 16.0 H VBG pCO2 Sodium 133.0 L Chloride 95 L Carbon Dioxide 20 L BUN 46 H Creatinine 1.89 H Est GFR ( Amer) 44 L Est GFR (Non-Af Amer) 37 L Glucose 151 H POC Glucose Lactic Acid Total Bilirubin 1.6 H Direct Bilirubin 1.1 H Total Protein 8.7 H Urine Protein Urine Blood Urine Urobilinogen Ur Leukocyte Esterase 01/30/18 01/30/18 01/30/18 11:43 11:43 12:15 WBC RBC Hgb Hct MCV RDW Seg Neuts % (Manual) Band Neutrophils % Lymphocytes % (Manual) Monocytes % (Manual) Abs Neuts (Manual) PT VBG pCO2 34.0 L Sodium Chloride Carbon Dioxide BUN Creatinine Est GFR ( Amer) Est GFR (Non-Af Amer) Glucose POC Glucose Lactic Acid 3.0 H Total Bilirubin Direct Bilirubin Total Protein Urine Protein 100 H Urine Blood MODERATE H Urine Urobilinogen 4.0 H Ur Leukocyte Esterase MODERATE H 01/30/18 12:41 WBC RBC Hgb Hct MCV RDW Seg Neuts % (Manual) Band Neutrophils % Lymphocytes % (Manual) Monocytes % (Manual) Abs Neuts (Manual) PT VBG pCO2 Sodium Chloride Carbon Dioxide BUN Creatinine Est GFR ( Amer) Est GFR (Non-Af Amer) Glucose POC Glucose 129 H Lactic Acid Total Bilirubin Direct Bilirubin Total Protein Urine Protein Urine Blood Urine Urobilinogen Ur Leukocyte Esterase - EKG Interpretation by Mt EKG shows normal: Sinus rhythm, [place], Intervals, QRS Complexes, ST-T Waves Rate: Normal - Heart rate is 95 Discharge - Discharge Clinical Impression: Sepsis associated with AIDS Urinary tract infection Qualifiers: Urinary tract infection type: site unspecified Hematuria presence: without hematuria Qualified Code(s): N39.0 - Urinary tract infection, site not specified Condition: Fair Disposition: ADMITTED INPATIENT Admitting Provider: Cher Unit Admitted: [facility] Referrals: GE HOLMAN MD [Primary Care Provider] - Follow up as needed
[2018-01-30 11:48] LABS: HEMATOCRIT 30.7 % (37.9-51.0); MEAN CORPUSCULAR HEMOGLOBIN 31.8 pg (27.0-33.4); MEAN CORPUSCULAR HGB CONC 32.5 g/dL (32.0-36.0); MEAN CORPUSCULAR VOLUME 98 fl (80-97); PLATELET COUNT 224 10^3/uL (150-450); RED BLOOD COUNT 3.14 10^6/uL (4.35-5.55); RED CELL DISTRIBUTION WIDTH 18.5 % (11.5-14.0); WHITE BLOOD COUNT 19.9 10^3/uL (4.0-10.5)
[2018-01-30] MEDS ORDERED: NORMAL SALINE 1000 ML 1,000 ML IV ONE ×3 (11:50→17:00)
[2018-01-30 12:03] LABS: ABSOLUTE MONOCYTES # (MANUAL) 0.4 10^3/uL (0.1-1.4); ABSOLUTE NEUTROPHILS# (MANUAL) 18.5 10^3/uL (1.7-8.2); BAND NEUTROPHILS % (MANUAL) 2 % (3-5); BASOPHILS % (MANUAL) 0 % (0-2); EOSINOPHILS % (MANUAL) 0 % (0-6); LYMPHOCYTES % (MANUAL) 5 % (13-45); MONOCYTES % (MANUAL) 2 % (3-13); SEGMENTED NEUTROPHILS % (MAN) 91 % (42-78); TOTAL CELLS COUNTED 100
[2018-01-30 12:04] LABS: ANISOCYTOSIS 1+
[2018-01-30 12:05] LABS: PLATELET COMMENT ADEQUATE; TOXIC GRANULATION SLIGHT; TOXIC VACUOLATION PRESENT
[2018-01-30 12:09] LABS: ALANINE AMINOTRANSFERASE 30 U/L (21-72); ALBUMIN 4.4 g/dL (3.5-5.0); ALKALINE PHOSPHATASE 81 U/L (38-126); ANION GAP 18 (5-19); ASPARTATE AMINO TRANSFERASE 44 U/L (17-59); BILIRUBIN,DIRECT 1.1 mg/dL (0.0-0.4); BILIRUBIN,TOTAL 1.6 mg/dL (0.2-1.3); BLOOD UREA NITROGEN 46 mg/dL (7-20); CALCIUM 10.2 mg/dL (8.4-10.2); CARBON DIOXIDE 20 mmol/L (22-30); CHLORIDE 95 mmol/L (98-107); GLUCOSE 151 mg/dL (75-110); POTASSIUM 4.7 mmol/L (3.6-5.0); TOTAL PROTEIN 8.7 g/dL (6.3-8.2)
[2018-01-30] MEDS ORDERED: PIPERACILLIN/TAZOBACTAM 3.375 GM VIAL IV ONE (12:10)
[2018-01-30 12:29] LABS: VENOUS BLOOD BASE EXCESS -3.4 mmol/L; VENOUS BLOOD HCO3 20.5 mmol/L (20-32); VENOUS BLOOD PH 7.4 (7.30-7.42)
--- NOTE | 2018-01-30 12:33 | EKG REPORT ---
SEVERITY:- NORMAL ECG - SINUS RHYTHM : Confirmed by: Neel Burk MD 30-Jan-2018 12:32:34
[2018-01-30 12:46] LABS: APPEARANCE,URINE TURBID; BILIRUBIN,URINE NEGATIVE (NEGATIVE); COLOR,URINE YELLOW; GLUCOSE, URINE NEGATIVE (NEGATIVE); KETONES,URINE NEGATIVE (NEGATIVE); LEUKOCYTE ESTERASE,URINE MODERATE (NEGATIVE); NITRITE,URINE NEGATIVE (NEGATIVE); PROTEIN,URINE 100 mg/dL (NEGATIVE); URINE SPECIFIC GRAVITY 1.015
--- NOTE | 2018-01-30 12:55 | RADIOLOGY REPORT (SQ) ---
EXAM DESCRIPTION: CT HEAD WITHOUT COMPLETED DATE/TIME: 01/30/2018 12:30 pm REASON FOR STUDY: Altered mental status, fever COMPARISON: MRI brain 08/28/2017 CT brain 11/17/2017, 08/28/2017, 03/20/2015, 03/23/2014 TECHNIQUE: Axial images acquired through the brain without intravenous contrast. Images reviewed wi th bone, brain and subdural windows. Images stored on PACS. All CT scanners at this facility use dose modulation, iterative reconstruction, and/or weight based d osing when appropriate to reduce radiation dose to as low as reasonably achievable (ALARA). [facility]: Dose Right [facility]: CareDose [facility]: Dose Right [facility]: Teradose 4D [facility]: [employer] RADIATION DOSE: CT Rad equipment meets quality standard of care and radiation dose reduction techniq ues were employed. CTDIvol: 64.6 mGy. DLP: 1163 mGy-cm. mGy. LIMITATIONS: None. FINDINGS: VENTRICLES: Normal size and contour. CEREBRUM: No CT evidence of acute large territory ischemic change, acute intracranial hemorrhage, mas s effect, or midline shift. An old right posterior frontal cortical and subcortical white matter/deep white matter infarct is pre sent unchanged. An old right occipital cortical infarct is present, unchanged. There are old lacunar infarcts in the left basal ganglia and left thalamus. Chronic bifrontal and biparietal low attenuation chronic small vessel ischemic change. CEREBELLUM: Old left cerebellar hemisphere lacunar infarct, unchanged from prior studies. Low attenu ation in the inferolateral right cerebellar hemisphere axial image 7 and 8, likely subacute ischemic change which is new compared to prior brain MRI 08/28/2017. EXTRAAXIAL SPACES: No fluid collections. No masses. ORBITS AND GLOBE: No intra- or extraconal masses. Normal contour of globe without masses. CALVARIUM: No fracture. PARANASAL SINUSES: No fluid or mucosal thickening. SOFT TISSUES: No mass or hematoma. OTHER: No other significant finding. IMPRESSION: No definite acute findings Subacute to chronic infarct right inferolateral cerebellar hemisphere new compared to prior brain MRI 08/28/2017. Chronic infarcts in the left cerebellar hemisphere, right occipital lobe, and right posterior frontal regions, unchanged. Old infarcts in the left basal ganglia and thalamus, bifrontal and biparietal w [place] matter unchanged. EVIDENCE OF ACUTE STROKE: NO. COMMENT: Quality ID # [id number]: Final reports with documentation of one or more dose reduction techniques (e.g., Automated exposure control, adjustment of the mA and/or kV according to patient size, use of iterative reconstruction technique) TECHNICAL DOCUMENTATION: JOB ID: [id number] [employer]- All Rights Reserved Reading location - IP/workstation name: [email or web address]
--- NOTE | 2018-01-30 12:57 | RADIOLOGY REPORT (SQ) ---
EXAM DESCRIPTION: CHEST SINGLE VIEW COMPLETED DATE/TIME: 01/30/2018 12:35 pm REASON FOR STUDY: Fever, cough COMPARISON: CT chest 11/12/2017 Chest films 12/03/2017, 01/01/2018 EXAM PARAMETERS: NUMBER OF VIEWS: One view. TECHNIQUE: Single frontal radiographic view of the chest acquired. RADIATION DOSE: NA LIMITATIONS: None. FINDINGS: LUNGS AND PLEURA: No opacities, masses or pneumothorax. No pleural effusion. MEDIASTINUM AND HILAR STRUCTURES: No masses. Contour normal. HEART AND VASCULAR STRUCTURES: Heart normal in size. Normal vasculature. BONES: No acute findings. HARDWARE: Right-sided permanent central line tip superior vena cava. OTHER: No other significant finding. IMPRESSION: NO ACUTE RADIOGRAPHIC FINDING IN THE CHEST. TECHNICAL DOCUMENTATION: JOB ID: [id number] [employer]- All Rights Reserved Reading location - IP/workstation name: [email or web address]
[2018-01-30] MEDS ORDERED: DEXTROSE 5%-1/2 NORMAL SALINE 1,000 ML IV ONE (14:25)
[2018-01-30] MEDS ORDERED: ACETAMINOPHEN 650 MG SUPP.RECT PR ONE (15:49)
[2018-01-30] MEDS ORDERED: DOPAMINE HCL/DEXTROSE 5%-WATER 800 MG/250 ML RTUINJ IV ONE (15:49)
[2018-01-30] MEDS: ACETAMINOPHEN 650 MG SUPP.RECT PR PRN (16:00)
[2018-01-30] MEDS ORDERED: DOPAMINE HCL 800 MG/D5W 250 ML IV PRN (16:29)
--- NOTE | 2018-01-30 16:55 | RADIOLOGY REPORT (SQ) ---
EXAM DESCRIPTION: CHEST SINGLE VIEW COMPLETED DATE/TIME: 01/30/2018 4:48 pm REASON FOR STUDY: pt condition COMPARISON: 01/30/2018. EXAM PARAMETERS: NUMBER OF VIEWS: One view. TECHNIQUE: Single frontal radiographic view of the chest acquired. RADIATION DOSE: NA LIMITATIONS: None. FINDINGS: LUNGS AND PLEURA: No opacities, masses or pneumothorax. No pleural effusion. MEDIASTINUM AND HILAR STRUCTURES: No masses. Contour normal. HEART AND VASCULAR STRUCTURES: Heart normal in size. Normal vasculature. BONES: No acute findings. HARDWARE: Vascular access port. OTHER: No other significant finding. IMPRESSION: NO ACUTE RADIOGRAPHIC FINDING IN THE CHEST. TECHNICAL DOCUMENTATION: JOB ID: [id number] [employer]- All Rights Reserved Reading location - IP/workstation name: [email or web address]
[2018-01-30] MEDS: NORMAL SALINE 1000 ML 1,000 ML IV PRN ×2 (17:00→19:30)
[2018-01-30 17:46] LABS: ARTERIAL BLOOD BASE EXCESS -5.1 mmol/L; ARTERIAL BLOOD O2 SATURATION 96.8 % (94-98); ARTERIAL BLOOD PCO2 26.7 mmHg (35-45); ARTERIAL BLOOD PH 7.45 (7.35-7.45); ARTERIAL BLOOD PO2 83.7 mmHg (80-100); ARTERIAL BLOOD TOTAL CO2 18.8 mmol/L (23-27)
[2018-01-30 17:51] LABS: ARTERIAL BLOOD FIO2 ROOM AIR; HEMATOCRIT 25.8 % (37.9-51.0); HEMOGLOBIN 8.3 g/dL (13.5-17.0); MEAN CORPUSCULAR HEMOGLOBIN 31.4 pg (27.0-33.4); MEAN CORPUSCULAR HGB CONC 32.3 g/dL (32.0-36.0); MEAN CORPUSCULAR VOLUME 97 fl (80-97); PLATELET COUNT 173 10^3/uL (150-450); RED BLOOD COUNT 2.65 10^6/uL (4.35-5.55); WHITE BLOOD COUNT 19.1 10^3/uL (4.0-10.5)
[2018-01-30 17:58] LABS: ANION GAP 9 (5-19); BLOOD UREA NITROGEN 37 mg/dL (7-20); CALCIUM 8.5 mg/dL (8.4-10.2); CARBON DIOXIDE 19 mmol/L (22-30); CHLORIDE 107 mmol/L (98-107); GLUCOSE 175 mg/dL (75-110); SODIUM 135.2 mmol/L (137-145)
[2018-01-30 17:59] LABS: INTERNATIONAL RATION (INR) 1.29
[2018-01-30 18:00] LABS: PARTIAL THROMBOPLASTIN TIME 32.1 SEC (23.5-35.8)
[2018-01-30 18:10] LABS: ABSOLUTE MONOCYTES # (MANUAL) 1.5 10^3/uL (0.1-1.4); ABSOLUTE NEUTROPHILS# (MANUAL) 16.4 10^3/uL (1.7-8.2); BASOPHILS % (MANUAL) 0 % (0-2); EOSINOPHILS % (MANUAL) 1 % (0-6); LYMPHOCYTES % (MANUAL) 5 % (13-45); MONOCYTES % (MANUAL) 8 % (3-13); SEGMENTED NEUTROPHILS % (MAN) 86 % (42-78); TOTAL CELLS COUNTED 100
[2018-01-30 18:11] LABS: ANISOCYTOSIS 2+; PLATELET COMMENT ADEQUATE; POIKILOCYTOSIS 1+; TOXIC GRANULATION SLIGHT
[2018-01-30 18:12] LABS: LIPASE 183.1 U/L (23-300); PHOSPHORUS 2.3 mg/dL (2.5-4.5)
[2018-01-30 18:21] LABS: POTASSIUM 3.5 mmol/L (3.6-5.0)
[2018-01-30 18:29] LABS: FREE T4 (FREE THYROXINE) 1.49 ng/dL (0.78-2.19)
[2018-01-30 18:43] LABS: THYROID STIMULATING HORMONE 0.27 uIU/mL (0.47-4.68)
[2018-01-30 18:50] LABS: CREATINE KINASE MB 3.87 ng/mL (<4.55); TROPONIN I 0.014 ng/mL
[2018-01-30] MEDS ORDERED: PIPERACILLIN SODIUM/TAZOBACTAM 3.375 GM in NORMAL SALINE 100 ML IV ONE (19:00)
[2018-01-30] MEDS: MAGNESIUM SULFATE 1 GM/D5W 100 ML IV SCH ×2 (19:29→22:09)
[2018-01-30] MEDS ORDERED: DEXTROSE 40% GEL 15 GM TUBE X 2 PO PRN (19:39)
[2018-01-30] MEDS ORDERED: GLUCAGON,HUMAN RECOMB 1 MG INJ IM PRN (19:39)
[2018-01-30] MEDS ORDERED: DEXTROSE 40% GEL 15 GM TUBE PO PRN (19:39)
--- NOTE | 2018-01-30 19:53 | EKG REPORT ---
SEVERITY:- BORDERLINE ECG - SINUS TACHYCARDIA BORDERLINE T ABNORMALITIES, DIFFUSE LEADS : Confirmed by: Neel Burk MD 30-Jan-2018 19:52:14
[2018-01-30] MEDS ORDERED: DEXTROSE 5%-WATER 250 ML with VASOPRESSIN 100 UNIT IV PRN ×2 (20:02)
[2018-01-30] MEDS ORDERED: DEXTROSE 5%-WATER 250 ML with NOREPINEPHRINE BITARTRATE 4 MG IV PRN ×2 (20:02)
--- NOTE | 2018-01-30 20:23 | PDOC H&P ---
History of Present Illness Admission Date/PCP: 01/30/18 13:43 GE HOLMAN MD History of Present Illness: RAE MONTEMAYOR is a 57 year old male, He has HIV disease, head and neck cancer status post radiation therapy and chemotherapy, presently a resident of [facility] undergoing rehabilitation, he was transferred from the [facility] to the emergency room for evaluation of high fever,Temperature 103 and altered mental status. In the emergency room he was evaluated, CT head was done there was no acute pathology on the CAT scan it showed old cerebral infarction. There was associated leukocytosis the white blood cell was 19.9 thousand with a left shift the urine was purulent suggesting the source of the sepsis the blood pressure recorded was extremely low in the 70s there was associated acute kidney injury this is consistent with septic shock. He was treated promptly with IV antibiotic and he was fluid resuscitated, stabilized in the emergency room and transferred to intermediate care unit for continued management. When he arrived on the floor the blood pressure dropped to the 70 he was quickly resuscitated with fluid and started on dopamine. There was rastafari of blood pressure, he became hemodynamically stable presently on crystalloid with normal saline. The blood pressure does drop again to the low 60s and presently is being transferred to ICU to be started on intravenous norepinephrine and probably vasopressin if needed. No reasonable history could be obtained from this patient as is very stuporous but arousable. Past Medical History Cardiac Medical History: Reports: Coronary Artery Disease, Hyperlipidema, Hypertension Pulmonary Medical History: Reports: Pneumonia Neurological Medical History: Reports: Ischemic CVA, Seizures - LAST ONE 3 WEEKS Endocrine Medical History: Reports: Diabetes Mellitus Type 2 GI Medical History: Reports: Hepatitis - HEP C,HIV+ Musculoskeltal Medical History: Reports: Arthritis Infectious Medical History: Reports: HIV Past Surgical History Past Surgical History: Reports: Cardiac Catheterization, Coronary Stent, Orthopedic Surgery - lumbar surgery, Other - peg Denies: Pacemaker Social History Lives with: Residential Smoking Status: Former Smoker Frequency of Alcohol Use: None Hx Recreational Drug Use: No - former drug user Drugs: None Hx Prescription Drug Abuse: No - Advance Directive Resuscitation Status: Full Code Family History Family History: Reviewed & Not Pertinent Parental Family History Reviewed: Yes Children Family History Reviewed: Yes Sibling(s) Family History Reviewed.: Yes Medication/Allergy Home Medications: Amlodipine Besylate [Norvasc 10 mg Tablet] 10 mg PO DAILY 01/30/18 Atorvastatin Calcium [Lipitor 10 mg Tablet] 10 mg PO QHS 01/30/18 Gabapentin [Neurontin] 800 mg PO Q12 01/30/18 Insulin Lispro [Humalog Insulin 100 Unit/1 ml 3 ml Vial] 0 unit SUBCUT .SLD SCALE 01/30/18 Ketoconazole [Nizoral 2% Shampoo 120 Ml Bottle] 1 applic TP MOTH@1000 01/30/18 Levetiracetam [Keppra 500 mg Tablet] 500 mg PO Q12 01/30/18 Levocetirizine Dihydrochloride [Xyzal] 5 mg PO DAILY 01/30/18 Lorazepam [Ativan 0.5 mg Tablet] 0.5 mg PO Q8HP PRN 01/30/18 Metformin HCl [Glucophage] 1,000 mg PO BIDBS 01/30/18 Metoprolol Succinate [Toprol XL 100 mg Tablet] 150 mg PO DAILY 01/30/18 Nystatin/Dexameth/Diphen [Magic Mouthwash (Omh Formula) Susp] 5 ml PO Q4HP PRN 01/30/18 Ondansetron HCl [Zofran 8 mg Tablet] 8 mg PO Q8HP PRN 01/30/18 Paroxetine HCl [Paxil 20 mg Tablet] 20 mg PO DAILY 01/30/18 Prochlorperazine Maleate [Compazine 10 mg Tablet] 10 mg PO Q6HP PRN 01/30/18 Raltegravir Potassium [Isentress 400 mg Tablet] 400 mg PO Q12 01/30/18 Ritonavir [Norvir 100 mg Tablet] 100 mg PO DAILY 01/30/18 Valsartan [Diovan] 320 mg PO DAILY@0000 01/30/18 Zinc Oxide [Zinc Oxide 20% Ointment 28.35 gm] 1 applic TP DAILYP PRN 01/30/18 Allergies/Adverse Reactions: No Known Drug Allergies Allergy (Verified 11/08/17 12:12) olive extract [Dougherty] Allergy (Verified 11/08/17 12:10) Shortness of Breath Review of Systems ROS unobtainable: Due to mental status Physical Exam Vital Signs: Temp Pulse Resp BP Pulse Ox 103.3 F H 122 H 18 101/57 L 98 01/30/18 16:14 01/30/18 15:35 01/30/18 16:14 01/30/18 18:46 01/30/18 16:14 Intake & Output 01/29/18 01/30/18 01/31/18 06:59 06:59 06:59 Output Total 1000 Balance -1000 Weight 57.9 kg General appearance: PRESENT: other - Patient is stuporous but arousable Eye exam: PRESENT: conjunctiva pale Respiratory exam: PRESENT: clear to auscultation melba Cardiovascular exam: PRESENT: +S1, +S2 GI/Abdominal exam: PRESENT: soft Neurological exam: PRESENT: altered Skin exam: PRESENT: dry Results Laboratory Results: 01/30/18 16:05 01/30/18 16:05 01/30/18 01/30/18 01/30/18 16:04 16:05 16:05 WBC 19.1 H RBC 2.65 L Hgb 8.3 L Hct 25.8 L MCV 97 MCH 31.4 MCHC 32.3 RDW 18.0 H Plt Count 173 Seg Neutrophils % Not Reportable Lymphocytes % Not Reportable Monocytes % Not Reportable Eosinophils % Not Reportable Basophils % Not Reportable Absolute Neutrophils Not Reportable Absolute Lymphocytes Not Reportable Absolute Monocytes Not Reportable Absolute Eosinophils Not Reportable Absolute Basophils Not Reportable Carbonic Acid HCO3/H2CO3 Ratio ABG pH ABG pCO2 ABG pO2 ABG HCO3 ABG O2 Saturation ABG Base Excess FiO2 Sodium 135.2 L Potassium 3.5 L D Chloride 107 Carbon Dioxide 19 L Anion Gap 9 BUN 37 H Creatinine 1.38 H Est GFR ( Amer) > 60 Est GFR (Non-Af Amer) 53 L Glucose 175 H Lactic Acid 1.7 Calcium 8.5 Phosphorus Magnesium 1.2 L* Ammonia Amylase Lipase TSH Free T4 01/30/18 01/30/18 01/30/18 16:05 16:05 16:05 WBC RBC Hgb Hct MCV MCH MCHC RDW Plt Count Seg Neutrophils % Lymphocytes % Monocytes % Eosinophils % Basophils % Absolute Neutrophils Absolute Lymphocytes Absolute Monocytes Absolute Eosinophils Absolute Basophils Carbonic Acid 0.80 L HCO3/H2CO3 Ratio 22:1 ABG pH 7.45 ABG pCO2 26.7 L ABG pO2 83.7 ABG HCO3 18.0 L ABG O2 Saturation 96.8 ABG Base Excess -5.1 FiO2 ROOM AIR Sodium Potassium Chloride Carbon Dioxide Anion Gap BUN Creatinine Est GFR ( Amer) Est GFR (Non-Af Amer) Glucose Lactic Acid Calcium Phosphorus 2.3 L Magnesium Cancelled Ammonia Amylase 41 Lipase 183.1 TSH 0.27 L Free T4 1.49 01/30/18 18:02 WBC RBC Hgb Hct MCV MCH MCHC RDW Plt Count Seg Neutrophils % Lymphocytes % Monocytes % Eosinophils % Basophils % Absolute Neutrophils Absolute Lymphocytes Absolute Monocytes Absolute Eosinophils Absolute Basophils Carbonic Acid HCO3/H2CO3 Ratio ABG pH ABG pCO2 ABG pO2 ABG HCO3 ABG O2 Saturation ABG Base Excess FiO2 Sodium Potassium Chloride Carbon Dioxide Anion Gap BUN Creatinine Est GFR ( Amer) Est GFR (Non-Af Amer) Glucose Lactic Acid Calcium Phosphorus Magnesium Ammonia < 8.7 L Amylase Lipase TSH Free T4 01/30/18 01/30/18 01/30/18 16:05 16:05 16:05 Creatine Kinase 277 H CK-MB (CK-2) 3.87 Troponin I 0.014 NT-Pro-B Natriuret Pep 1940 H Impressions: Chest X-Ray 01/30/18 11:50 IMPRESSION: NO ACUTE RADIOGRAPHIC FINDING IN THE CHEST. Head CT 01/30/18 11:50 IMPRESSION: No definite acute findings Subacute to chronic infarct right inferolateral cerebellar hemisphere new compared to prior brain MRI 08/28/2017. Chronic infarcts in the left cerebellar hemisphere, right occipital lobe, and right posterior frontal regions, unchanged. Old infarcts in the left basal ganglia and thalamus, bifrontal and biparietal white matter unchanged. EVIDENCE OF ACUTE STROKE: NO. Assessment & Plan - Diagnosis (1) Septic shock Is this a current diagnosis for this admission?: Yes Plan: Patient present with septic shock there is associated encephalopathy, stuporous , acute kidney injury and hypotension. The source of the septic shock is the urine, the urine is purulent, he is started empirically on Zosyn a broad spectrum antibiotic will cover most Uropathogens (2) Hypotension Qualifiers: Hypotension type: unspecified hypotension type Qualified Code(s): I95.9 - Hypotension, unspecified Is this a current diagnosis for this admission?: Yes Plan: Patient was given boluses of normal saline presently on maintenance fluid therapy normal saline at 150 mL/h (3) Urinary tract infection Qualifiers: Urinary tract infection type: site unspecified Hematuria presence: without hematuria Qualified Code(s): N39.0 - Urinary tract infection, site not specified Is this a current diagnosis for this admission?: Yes (4) Metabolic encephalopathy Is this a current diagnosis for this admission?: Yes (5) HIV (human immunodeficiency virus infection) Is this a current diagnosis for this admission?: Yes
[2018-01-30] MEDS ORDERED: RITONAVIR 100 MG TABLET PO ONE (21:00)
[2018-01-30 21:24] LABS: URINE AMPHETAMINES SCREEN NEGATIVE; URINE BARBITURATES SCREEN NEGATIVE; URINE BENZODIAZEPINES SCREEN NEGATIVE; URINE COCAINE SCREEN NEGATIVE; URINE MARIJUANA (THC) SCREEN NEGATIVE; URINE METHADONE SCREEN NEGATIVE; URINE PHENCYCLIDINE SCREEN NEGATIVE
[2018-01-30] MEDS: PAROXETINE HCL 20 MG TABLET PO SCH (22:10)
[2018-01-30] MEDS: RALTEGRAVIR POTASSIUM 400 MG TABLET PO SCH (22:10)
[2018-01-30] MEDS: HEPARIN SOD (PORCINE) 5,000 UNIT/ML 1 ML SYRINGE SUBCUT SCH (22:11)
[2018-01-31 01:10] LABS: CREATINE KINASE MB 4.59 ng/mL (<4.55); TROPONIN I 0.016 ng/mL
[2018-01-31] MEDS: ACETAMINOPHEN 650 MG SUPP.RECT PR PRN (01:24)
[2018-01-31] MEDS: NORMAL SALINE 1000 ML 1,000 ML IV PRN ×4 (01:58→23:59)
[2018-01-31] MEDS ORDERED: PIPERACILLIN/TAZOBACTAM 3.375 GM VIAL IV ONE ×2 (02:26→05:49)
[2018-01-31] MEDS: PIPERACILLIN SODIUM/TAZOBACTAM 3.375 GM in NORMAL SALINE 100 ML IV SCH ×5 (02:32→23:59)
[2018-01-31 05:43] LABS: ALANINE AMINOTRANSFERASE 32 U/L (21-72); ALBUMIN 3.2 g/dL (3.5-5.0); ALKALINE PHOSPHATASE 59 U/L (38-126); ANION GAP 11 (5-19); ASPARTATE AMINO TRANSFERASE 45 U/L (17-59); BILIRUBIN,DIRECT 1.4 mg/dL (0.0-0.4); BILIRUBIN,TOTAL 1.4 mg/dL (0.2-1.3); BLOOD UREA NITROGEN 21 mg/dL (7-20); CARBON DIOXIDE 19 mmol/L (22-30); CHLORIDE 111 mmol/L (98-107); CHOLESTEROL 88.09 mg/dL (0-200); CREATINE KINASE 767 U/L (55-170); GLUCOSE 137 mg/dL (75-110); POTASSIUM 3.3 mmol/L (3.6-5.0); SODIUM 141.4 mmol/L (137-145); TOTAL PROTEIN 7.1 g/dL (6.3-8.2); TRIGLYCERIDES 149 mg/dL (<150)
[2018-01-31 05:57] LABS: DIRECT LDL < 30 mg/dL (<100)
[2018-01-31 06:03] LABS: CREATINE KINASE MB 5.33 ng/mL (<4.55); TROPONIN I 0.013 ng/mL
[2018-01-31] MEDS: HEPARIN SOD (PORCINE) 5,000 UNIT/ML 1 ML SYRINGE SUBCUT SCH ×3 (06:18→21:00)
[2018-01-31] MEDS ORDERED: POTASSIUM CHLORIDE 10 MEQ TABLET.SA PO ONE (07:00)
[2018-01-31] MEDS: RALTEGRAVIR POTASSIUM 400 MG TABLET PO SCH ×2 (10:49→21:00)
[2018-01-31] MEDS: RITONAVIR 100 MG TABLET PO SCH (10:49)
[2018-01-31 11:18] LABS: HEMATOCRIT 24.8 % (37.9-51.0); HEMOGLOBIN 8.3 g/dL (13.5-17.0); MEAN CORPUSCULAR HEMOGLOBIN 32.6 pg (27.0-33.4); MEAN CORPUSCULAR HGB CONC 33.5 g/dL (32.0-36.0); MEAN CORPUSCULAR VOLUME 98 fl (80-97); PLATELET COUNT 135 10^3/uL (150-450); RED BLOOD COUNT 2.55 10^6/uL (4.35-5.55); RED CELL DISTRIBUTION WIDTH 17.9 % (11.5-14.0); WHITE BLOOD COUNT 17.5 10^3/uL (4.0-10.5)
[2018-01-31 11:48] LABS: ABSOLUTE LYMPHOCYTES# (MANUAL) 0.9 10^3/uL (0.5-4.7); ABSOLUTE MONOCYTES # (MANUAL) 0.5 10^3/uL (0.1-1.4); ABSOLUTE NEUTROPHILS# (MANUAL) 16.1 10^3/uL (1.7-8.2); BASOPHILS % (MANUAL) 0 % (0-2); EOSINOPHILS % (MANUAL) 0 % (0-6); LYMPHOCYTES % (MANUAL) 5 % (13-45); MONOCYTES % (MANUAL) 3 % (3-13); SEGMENTED NEUTROPHILS % (MAN) 92 % (42-78); TOTAL CELLS COUNTED 100
[2018-01-31 11:51] LABS: ANISOCYTOSIS 1+; PLATELET COMMENT DECREASED; POIKILOCYTOSIS SLIGHT; POLYCHROMASIA SLIGHT; TARGET CELLS SLIGHT; TOXIC GRANULATION 1+
[2018-01-31] MEDS ORDERED: DILTIAZEM HCL/D5W 125 MG/125 ML RTUINJ IV ONE (13:46)
[2018-01-31] MEDS ORDERED: METOPROLOL TARTRATE PF/INJ 5 MG/5 ML SDV IV ONE ×2 (14:19→14:36)
[2018-01-31] MEDS ORDERED: METOPROLOL TARTRATE PF/INJ 5 MG/5 ML SDV IV PRN (14:40)
[2018-01-31] MEDS ORDERED: ACETAMINOPHEN 325 MG TABLET ONE (15:11)
--- NOTE | 2018-01-31 16:24 | PDOC PROGRESS REPORT ---
Subjective Progress Note for:: 01/31/18 Subjective:: He was admitted yesterday when he presented with septic shock, presently in ICU , he developed paroxysmal atrial fibrillation with RVR, started on Cardizem infusion Reason For Visit: SEPSIS Physical Exam Vital Signs: Temp Pulse Resp BP Pulse Ox 100.4 F 105 H 12 108/59 L 100 01/31/18 14:00 01/31/18 14:00 01/31/18 15:08 01/31/18 15:08 01/31/18 15:08 Intake & Output 01/30/18 01/31/18 02/01/18 06:59 06:59 06:59 Intake Total 877 360 Output Total 4500 940 Balance -3623 -580 Weight 59.7 kg General appearance: PRESENT: no acute distress Eye exam: PRESENT: PERRLA Respiratory exam: PRESENT: clear to auscultation melba Cardiovascular exam: PRESENT: +S1, +S2 GI/Abdominal exam: PRESENT: soft Neurological exam: PRESENT: alert Results Laboratory Results: 01/31/18 10:52 01/31/18 05:07 01/30/18 01/30/18 01/30/18 16:04 16:05 16:05 WBC 19.1 H RBC 2.65 L Hgb 8.3 L Hct 25.8 L MCV 97 MCH 31.4 MCHC 32.3 RDW 18.0 H Plt Count 173 Seg Neutrophils % Not Reportable Lymphocytes % Not Reportable Monocytes % Not Reportable Eosinophils % Not Reportable Basophils % Not Reportable Absolute Neutrophils Not Reportable Absolute Lymphocytes Not Reportable Absolute Monocytes Not Reportable Absolute Eosinophils Not Reportable Absolute Basophils Not Reportable Carbonic Acid HCO3/H2CO3 Ratio ABG pH ABG pCO2 ABG pO2 ABG HCO3 ABG O2 Saturation ABG Base Excess FiO2 Sodium 135.2 L Potassium 3.5 L D Chloride 107 Carbon Dioxide 19 L Anion Gap 9 BUN 37 H Creatinine 1.38 H Est GFR ( Amer) > 60 Est GFR (Non-Af Amer) 53 L Glucose 175 H Lactic Acid 1.7 Calcium 8.5 Phosphorus Magnesium 1.2 L* Total Bilirubin AST ALT Alkaline Phosphatase Ammonia Total Protein Albumin Triglycerides Cholesterol LDL Cholesterol Direct VLDL Cholesterol HDL Cholesterol Amylase Lipase TSH Free T4 01/30/18 01/30/18 01/30/18 16:05 16:05 16:05 WBC RBC Hgb Hct MCV MCH MCHC RDW Plt Count Seg Neutrophils % Lymphocytes % Monocytes % Eosinophils % Basophils % Absolute Neutrophils Absolute Lymphocytes Absolute Monocytes Absolute Eosinophils Absolute Basophils Carbonic Acid 0.80 L HCO3/H2CO3 Ratio 22:1 ABG pH 7.45 ABG pCO2 26.7 L ABG pO2 83.7 ABG HCO3 18.0 L ABG O2 Saturation 96.8 ABG Base Excess -5.1 FiO2 ROOM AIR Sodium Potassium Chloride Carbon Dioxide Anion Gap BUN Creatinine Est GFR ( Amer) Est GFR (Non-Af Amer) Glucose Lactic Acid Calcium Phosphorus 2.3 L Magnesium Cancelled Total Bilirubin AST ALT Alkaline Phosphatase Ammonia Total Protein Albumin Triglycerides Cholesterol LDL Cholesterol Direct VLDL Cholesterol HDL Cholesterol Amylase 41 Lipase 183.1 TSH 0.27 L Free T4 1.49 01/30/18 01/31/18 01/31/18 18:02 05:07 10:52 WBC 17.5 H RBC 2.55 L Hgb 8.3 L Hct 24.8 L MCV 98 H MCH 32.6 MCHC 33.5 RDW 17.9 H Plt Count 135 L Seg Neutrophils % Not Reportable Lymphocytes % Not Reportable Monocytes % Not Reportable Eosinophils % Not Reportable Basophils % Not Reportable Absolute Neutrophils Not Reportable Absolute Lymphocytes Not Reportable Absolute Monocytes Not Reportable Absolute Eosinophils Not Reportable Absolute Basophils Not Reportable Carbonic Acid HCO3/H2CO3 Ratio ABG pH ABG pCO2 ABG pO2 ABG HCO3 ABG O2 Saturation ABG Base Excess FiO2 Sodium 141.4 Potassium 3.3 L Chloride 111 H Carbon Dioxide 19 L Anion Gap 11 BUN 21 H Creatinine 0.83 Est GFR ( Amer) > 60 Est GFR (Non-Af Amer) > 60 Glucose 137 H Lactic Acid Calcium 9.0 Phosphorus Magnesium Total Bilirubin 1.4 H AST 45 ALT 32 Alkaline Phosphatase 59 Ammonia < 8.7 L Total Protein 7.1 Albumin 3.2 L Triglycerides 149 Cholesterol 88.09 LDL Cholesterol Direct < 30 VLDL Cholesterol 30.0 HDL Cholesterol 30 L Amylase Lipase TSH Free T4 01/30/18 01/30/18 01/30/18 16:05 16:05 16:05 Creatine Kinase 277 H CK-MB (CK-2) 3.87 Troponin I 0.014 NT-Pro-B Natriuret Pep 1940 H 01/31/18 01/31/18 01/31/18 00:10 05:07 05:07 Creatine Kinase 767 H CK-MB (CK-2) 4.59 H 5.33 H Troponin I 0.016 0.013 NT-Pro-B Natriuret Pep Impressions: Chest X-Ray 01/30/18 11:50 IMPRESSION: NO ACUTE RADIOGRAPHIC FINDING IN THE CHEST. Head CT 01/30/18 11:50 IMPRESSION: No definite acute findings Subacute to chronic infarct right inferolateral cerebellar hemisphere new compared to prior brain MRI 08/28/2017. Chronic infarcts in the left cerebellar hemisphere, right occipital lobe, and right posterior frontal regions, unchanged. Old infarcts in the left basal ganglia and thalamus, bifrontal and biparietal white matter unchanged. EVIDENCE OF ACUTE STROKE: NO. Assessment & Plan - Diagnosis (1) Septic shock Is this a current diagnosis for this admission?: Yes (2) Hypotension Qualifiers: Hypotension type: unspecified hypotension type Qualified Code(s): I95.9 - Hypotension, unspecified Is this a current diagnosis for this admission?: Yes (3) Urinary tract infection Qualifiers: Urinary tract infection type: site unspecified Hematuria presence: without hematuria Qualified Code(s): N39.0 - Urinary tract infection, site not specified Is this a current diagnosis for this admission?: Yes (4) Metabolic encephalopathy Is this a current diagnosis for this admission?: Yes (5) HIV (human immunodeficiency virus infection) Is this a current diagnosis for this admission?: Yes (6) Atrial fibrillation with RVR Is this a current diagnosis for this admission?: Yes Plan: Start Cardizem infusion (7) Gram positive septicemia Is this a current diagnosis for this admission?: Yes Plan: Continue IV antibiotic
[2018-01-31] MEDS: PAROXETINE HCL 20 MG TABLET PO SCH (20:55)
[2018-01-31] MEDS: ACETAMINOPHEN 325 MG TABLET PO PRN (22:19)
[2018-01-31] MEDS: DEXTROSE 50%-WATER SYRINGE 12.5 GM/25 ML DOSE IV PRN (22:21)
[2018-02-01] MEDS: ACETAMINOPHEN 325 MG TABLET PO PRN ×4 (04:37→22:12)
[2018-02-01] MEDS: PIPERACILLIN SODIUM/TAZOBACTAM 3.375 GM in NORMAL SALINE 100 ML IV SCH ×3 (06:25→17:47)
[2018-02-01] MEDS: HEPARIN SOD (PORCINE) 5,000 UNIT/ML 1 ML SYRINGE SUBCUT SCH ×3 (06:26→21:36)
[2018-02-01] MEDS: RITONAVIR 100 MG TABLET PO SCH (10:06)
[2018-02-01] MEDS: NORMAL SALINE 1000 ML 1,000 ML IV PRN ×2 (10:07→17:48)
[2018-02-01] MEDS: RALTEGRAVIR POTASSIUM 400 MG TABLET PO SCH ×2 (10:07→21:35)
[2018-02-01] MEDS ORDERED: METOPROLOL TARTRATE PF/INJ 5 MG/5 ML SDV IV ONE (11:00)
[2018-02-01 12:38] LABS: % CD 4 POS LYMPH 6.9 % (30.8-58.5); % CD 8 POS LYMPH 47.8 % (12.0-35.5); ABSOLUTE CD 4 HELPER 83 /uL (359-1519); ABSOLUTE CD 8 SUPPRESSOR 574 /uL (109-897); CD BASOPHILS 0 % (Not Estab.); CD EOSINOPHILS 0 % (Not Estab.); CD MONOCYTES 6 % (Not Estab.); CD NEUTROPHILS 89 % (Not Estab.); CD4/CD8 RATIO 0.14 (0.92-3.72); EOSINOPHILS (ABSOLUTE) 0.1 x10E3/uL (0.0-0.4); HEMOGLOBIN 8.7 g/dL (13.0-17.7); IMMATURE GRANULOCYTES 0 % (Not Estab.); LYMPHS(ABSOLUTE) 1.2 x10E3/uL (0.7-3.1); MCH 31.3 pg (26.6-33.0); MCHC 31.2 g/dL (31.5-35.7); MCV 100 fL (79-97); MONOCYTES(ABSOLUTE) 1.4 x10E3/uL (0.1-0.9); PLATELETS 178 x10E3/uL (150-379); RDW 16.9 % (12.3-15.4); WBC 23.7 x10E3/uL (3.4-10.8)
[2018-02-01 13:36] LABS: RBC 2.78 x10E6/uL (4.14-5.80)
[2018-02-01] MEDS: DILTIAZEM HCL/D5W 125 MG/125 ML RTUINJ IV PRN (14:57)
[2018-02-01] MEDS: DEXTROSE 50%-WATER SYRINGE 12.5 GM/25 ML DOSE IV PRN (17:47)
--- NOTE | 2018-02-01 18:29 | PDOC PROGRESS REPORT ---
Subjective Progress Note for:: 02/01/18 Subjective:: Patient was seen by the bedside, the urine culture grew Enterococcus faecalis, the blood culture is growing gram positive cocci most likely is E faecalis. Patient is alert and responding. The bacteria is sensitive to ampicillin, he was empirically started on Zosyn, this will be discontinued since the bacterial culture is sensitive to ampicillin. He had episode of atrial fibrillation usually associated with fever Reason For Visit: SEPSIS Physical Exam Vital Signs: Temp Pulse Resp BP Pulse Ox 99.5 F 97 27 H 102/77 100 02/01/18 10:00 02/01/18 07:47 02/01/18 18:14 02/01/18 18:14 02/01/18 18:14 Intake & Output 01/31/18 02/01/18 02/02/18 06:59 06:59 06:59 Intake Total 877 4290 2566 Output Total 4500 3660 3800 Balance -3623 630 -1234 Weight 59.7 kg 58.9 kg General appearance: PRESENT: no acute distress Eye exam: PRESENT: PERRLA Respiratory exam: PRESENT: clear to auscultation melba Cardiovascular exam: PRESENT: +S1, +S2 GI/Abdominal exam: PRESENT: soft Neurological exam: PRESENT: alert Results Laboratory Results: 01/31/18 10:52 01/31/18 05:07 01/30/18 01/30/18 01/30/18 16:05 16:05 16:05 Creatine Kinase 277 H CK-MB (CK-2) 3.87 Troponin I 0.014 NT-Pro-B Natriuret Pep 1940 H 01/31/18 01/31/18 01/31/18 00:10 05:07 05:07 Creatine Kinase 767 H CK-MB (CK-2) 4.59 H 5.33 H Troponin I 0.016 0.013 NT-Pro-B Natriuret Pep Impressions: Chest X-Ray 01/30/18 11:50 IMPRESSION: NO ACUTE RADIOGRAPHIC FINDING IN THE CHEST. Head CT 01/30/18 11:50 IMPRESSION: No definite acute findings Subacute to chronic infarct right inferolateral cerebellar hemisphere new compared to prior brain MRI 08/28/2017. Chronic infarcts in the left cerebellar hemisphere, right occipital lobe, and right posterior frontal regions, unchanged. Old infarcts in the left basal ganglia and thalamus, bifrontal and biparietal white matter unchanged. EVIDENCE OF ACUTE STROKE: NO. Assessment & Plan - Diagnosis (1) Septic shock Is this a current diagnosis for this admission?: Yes Plan: Patient no longer requiring vasopressors (2) Hypotension Qualifiers: Hypotension type: unspecified hypotension type Qualified Code(s): I95.9 - Hypotension, unspecified Is this a current diagnosis for this admission?: Yes (3) Urinary tract infection Qualifiers: Urinary tract infection type: site unspecified Hematuria presence: without hematuria Qualified Code(s): N39.0 - Urinary tract infection, site not specified Is this a current diagnosis for this admission?: Yes (4) Metabolic encephalopathy Is this a current diagnosis for this admission?: Yes (5) HIV (human immunodeficiency virus infection) Is this a current diagnosis for this admission?: Yes (6) Atrial fibrillation with RVR Is this a current diagnosis for this admission?: Yes (7) Gram positive septicemia Is this a current diagnosis for this admission?: Yes (8) UTI (urinary tract infection) due to Enterococcus Is this a current diagnosis for this admission?: Yes Plan: Patient to be started on IV ampicillin, will discontinue Zosyn.
[2018-02-01 18:58] LABS: HEMATOCRIT 23.8 % (37.9-51.0); MEAN CORPUSCULAR HGB CONC 32.9 g/dL (32.0-36.0); MEAN CORPUSCULAR VOLUME 97 fl (80-97); PLATELET COUNT 125 10^3/uL (150-450); RED BLOOD COUNT 2.44 10^6/uL (4.35-5.55); RED CELL DISTRIBUTION WIDTH 17.8 % (11.5-14.0); WHITE BLOOD COUNT 14.8 10^3/uL (4.0-10.5)
[2018-02-01 19:11] LABS: ALANINE AMINOTRANSFERASE 29 U/L (21-72); ALBUMIN 2.5 g/dL (3.5-5.0); ALKALINE PHOSPHATASE 52 U/L (38-126); ANION GAP 11 (5-19); ASPARTATE AMINO TRANSFERASE 36 U/L (17-59); BILIRUBIN,DIRECT 0.9 mg/dL (0.0-0.4); BILIRUBIN,TOTAL 0.9 mg/dL (0.2-1.3); BLOOD UREA NITROGEN 7 mg/dL (7-20); CALCIUM 8.3 mg/dL (8.4-10.2); CARBON DIOXIDE 19 mmol/L (22-30); CHLORIDE 105 mmol/L (98-107); GLUCOSE 162 mg/dL (75-110); SODIUM 134.5 mmol/L (137-145); TOTAL PROTEIN 5.7 g/dL (6.3-8.2)
[2018-02-01 19:15] LABS: POTASSIUM 2.2 mmol/L (3.6-5.0)
[2018-02-01 19:24] LABS: HEMOGLOBIN 7.8 g/dL (13.5-17.0)
[2018-02-01 19:26] LABS: ABSOLUTE LYMPHOCYTES# (MANUAL) 0.3 10^3/uL (0.5-4.7); ABSOLUTE MONOCYTES # (MANUAL) 0.6 10^3/uL (0.1-1.4); ABSOLUTE NEUTROPHILS# (MANUAL) 13.9 10^3/uL (1.7-8.2); BASOPHILS % (MANUAL) 0 % (0-2); EOSINOPHILS % (MANUAL) 0 % (0-6); LYMPHOCYTES % (MANUAL) 2 % (13-45); MONOCYTES % (MANUAL) 4 % (3-13); SEGMENTED NEUTROPHILS % (MAN) 94 % (42-78); TOTAL CELLS COUNTED 100
[2018-02-01 19:27] LABS: TOXIC GRANULATION 3+
[2018-02-01 19:28] LABS: ANISOCYTOSIS 1+; BURR CELLS 1+; HYPOCHROMASIA 2+; PLATELET COMMENT ADEQUATE; TARGET CELLS SLIGHT; TEAR DROP CELLS SLIGHT
[2018-02-01] MEDS ORDERED: SULFAMETHOXAZOLE/TRIMETHOPRIM 800-160 MG TABLET PO SCH (20:15)
[2018-02-01] MEDS: PAROXETINE HCL 20 MG TABLET PO SCH (20:32)
[2018-02-01] MEDS: POTASSI CL 20 MEQ/50 ML RIDER 20 MEQ/50 ML RTUPB IV SCH ×2 (20:32→22:10)
[2018-02-01] MEDS: AMPICILLIN SODIUM 1 GM in NORMAL SALINE 50 ML IV SCH (20:38)
[2018-02-01] MEDS: METOPROLOL TARTRATE PF/INJ 5 MG/5 ML SDV IV PRN (21:35)
[2018-02-01] MEDS: POTASSIUM CHLORIDE 10 MEQ TABLET.SA PO SCH (21:36)
[2018-02-02] MEDS: POTASSIUM CHLORIDE 20 MEQ/50 ML RTU IV SCH ×5 (00:25→22:22)
[2018-02-02] MEDS: POTASSI CL 20 MEQ/50 ML RIDER 20 MEQ/50 ML RTUPB IV SCH (00:32)
[2018-02-02] MEDS: NORMAL SALINE 1000 ML 1,000 ML IV PRN ×2 (01:15→08:12)
[2018-02-02] MEDS: AMPICILLIN SODIUM 1 GM in NORMAL SALINE 50 ML IV SCH ×4 (02:18→22:21)
[2018-02-02] MEDS: DILTIAZEM HCL/D5W 125 MG/125 ML RTUINJ IV PRN ×2 (05:47→17:42)
[2018-02-02] MEDS: HEPARIN SOD (PORCINE) 5,000 UNIT/ML 1 ML SYRINGE SUBCUT SCH ×3 (05:48→22:22)
[2018-02-02] MEDS: ACETAMINOPHEN 325 MG TABLET PO PRN ×3 (05:49→20:28)
[2018-02-02 06:55] LABS: ABSOLUTE LYMPHOCYTES (AUTO) 0.8 10^3/uL (0.5-4.7); ABSOLUTE MONOCYTES (AUTO) 1.1 10^3/uL (0.1-1.4); BASOPHILS % (AUTO) 0.1 % (0-2); EOSINOPHILS % (AUTO) 0.1 % (0-6); HEMATOCRIT 25.1 % (37.9-51.0); HEMOGLOBIN 8.1 g/dL (13.5-17.0); LYMPHOCYTES % (AUTO) 5.5 % (13-45); MEAN CORPUSCULAR HEMOGLOBIN 31.5 pg (27.0-33.4); MEAN CORPUSCULAR HGB CONC 32.4 g/dL (32.0-36.0); MEAN CORPUSCULAR VOLUME 97 fl (80-97); MONOCYTES % (AUTO) 7.3 % (3-13); PLATELET COUNT 130 10^3/uL (150-450); RED BLOOD COUNT 2.58 10^6/uL (4.35-5.55); RED CELL DISTRIBUTION WIDTH 18.1 % (11.5-14.0); TOTAL CELLS COUNTED % (AUTO) 100 %; WHITE BLOOD COUNT 14.9 10^3/uL (4.0-10.5)
[2018-02-02 07:29] LABS: ALANINE AMINOTRANSFERASE 36 U/L (21-72); ALBUMIN 2.5 g/dL (3.5-5.0); ALKALINE PHOSPHATASE 59 U/L (38-126); ANION GAP 9 (5-19); ASPARTATE AMINO TRANSFERASE 32 U/L (17-59); BILIRUBIN,DIRECT 0.9 mg/dL (0.0-0.4); BILIRUBIN,TOTAL 0.9 mg/dL (0.2-1.3); BLOOD UREA NITROGEN 5 mg/dL (7-20); CALCIUM 8.6 mg/dL (8.4-10.2); CARBON DIOXIDE 21 mmol/L (22-30); CHLORIDE 112 mmol/L (98-107); GLUCOSE 109 mg/dL (75-110); SODIUM 141.5 mmol/L (137-145); TOTAL PROTEIN 5.9 g/dL (6.3-8.2)
[2018-02-02 07:33] LABS: POTASSIUM 2.7 mmol/L (3.6-5.0)
[2018-02-02 08:57] LABS: HIV-1 RNA PCR QUANT <20 copies/mL (.)
--- NOTE | 2018-02-02 09:20 | Physician Advisory Note ---
Physician Advisor ProgressNote .: Pursuant to the plan for [facility], I have reviewed the medical record for this patient. Physician Advisor Statement: Beautiful documentation in H&P of sepsis w/septic shock, due to UTI, with associated metabolic encephalopathy (total GCS was 9), and KUSHAL, requiring pressors even after IVF resuscitation, evidenced by leukocytosis, fever, tachycardia, persistent hypotension, AMS, lactate 3, KUSHAL, total bili 1.6 due to sepsis, subsequently showing thrombocytopenia <150 as well. Please consider documenting, if you agree: 1. "AIDS" 2. Continuing to document "KUSHAL, due to Sepsis" 3. protein-calorie malnutrition [state mild, mod, or severe] with BMI 18.1, PEG tube due to head/neck CA, ____[?wt loss, ?appetite loss, ]" [if possible, give specifics on intake, wt loss, loss of SQ fat & muscle mass, diminished hand product advisor strength, & clinical importance such as (A) nutritional assessment ordered, (B) modified diet or supplements ordered, (C) additional labs ordered, (D) prolonged wound healing time, (E) delayed infxn clearance] 4. "Acute hyponatremia, suspect due to " Thanks! CK.
[2018-02-02] MEDS: RITONAVIR 100 MG TABLET PO SCH (10:04)
[2018-02-02] MEDS: SULFAMETHOXAZOLE/TRIMETHOPRIM 800-160 MG TABLET PO SCH (10:04)
[2018-02-02] MEDS: RALTEGRAVIR POTASSIUM 400 MG TABLET PO SCH ×2 (10:04→22:22)
[2018-02-02] MEDS: POTASSI CL 20 MEQ/NS 1L 1,000 ML IV PRN ×2 (10:07→17:47)
[2018-02-02 16:26] LABS: ANION GAP 7 (5-19); BLOOD UREA NITROGEN 5 mg/dL (7-20); CALCIUM 8.7 mg/dL (8.4-10.2); CARBON DIOXIDE 21 mmol/L (22-30); CHLORIDE 110 mmol/L (98-107); GLUCOSE 135 mg/dL (75-110); SODIUM 138.4 mmol/L (137-145)
[2018-02-02 16:46] LABS: POTASSIUM 2.9 mmol/L (3.6-5.0)
--- NOTE | 2018-02-02 17:12 | PDOC PROGRESS REPORT ---
Subjective Progress Note for:: 02/02/18 Subjective:: Patient was seen by the bedside, the blood culture grew Enterococcus faecalis, urine culture grew E faecalis, HIV RNA is less than 20, CD4 count is 84, based on the definition AIDS, he meets the criteria for AIDS defining illness with CD4 count of 84 which is less than 200 but the HIV RNA less than 20 suggesting that this is probably not AIDS per se. The low CD4 count is probably transient due to infection but yesterday he was started on prophylaxis dose of Bactrim for PCP and toxoplasmosis, the toxoplasma serology was sent out result is pending. He has hypokalemia this is probably from normal saline infusion. The IV fluid as been change Reason For Visit: SEPSIS Physical Exam Vital Signs: Temp Pulse Resp BP Pulse Ox 102.6 F H 88 13 112/76 100 02/02/18 05:51 02/02/18 08:00 02/02/18 16:29 02/02/18 16:29 02/02/18 16:29 Intake & Output 02/01/18 02/02/18 02/03/18 06:59 06:59 06:59 Intake Total 4290 4534 350 Output Total 3660 7625 1600 Balance 630 -6983 -1250 Weight 58.9 kg 60.5 kg General appearance: PRESENT: no acute distress Eye exam: PRESENT: PERRLA Respiratory exam: PRESENT: clear to auscultation melba Cardiovascular exam: PRESENT: +S1, +S2 GI/Abdominal exam: PRESENT: soft Neurological exam: PRESENT: alert Results Laboratory Results: 02/02/18 06:45 02/02/18 15:55 02/01/18 02/01/18 02/02/18 18:40 18:40 06:45 WBC 14.8 H 14.9 H RBC 2.44 L 2.58 L Hgb 7.8 L 8.1 L Hct 23.8 L 25.1 L MCV 97 97 MCH 32.0 31.5 MCHC 32.9 32.4 RDW 17.8 H 18.1 H Plt Count 125 L 130 L Seg Neutrophils % Not Reportable 87.0 H Lymphocytes % Not Reportable 5.5 L Monocytes % Not Reportable 7.3 Eosinophils % Not Reportable 0.1 Basophils % Not Reportable 0.1 Absolute Neutrophils Not Reportable 13.0 H Absolute Lymphocytes Not Reportable 0.8 Absolute Monocytes Not Reportable 1.1 Absolute Eosinophils Not Reportable 0.0 Absolute Basophils Not Reportable 0.0 Sodium 134.5 L Potassium 2.2 L* Chloride 105 Carbon Dioxide 19 L Anion Gap 11 BUN 7 Creatinine 0.70 Est GFR ( Amer) > 60 Est GFR (Non-Af Amer) > 60 Glucose 162 H Calcium 8.3 L Total Bilirubin 0.9 AST 36 ALT 29 Alkaline Phosphatase 52 Total Protein 5.7 L Albumin 2.5 L 02/02/18 02/02/18 06:45 15:55 WBC RBC Hgb Hct MCV MCH MCHC RDW Plt Count Seg Neutrophils % Lymphocytes % Monocytes % Eosinophils % Basophils % Absolute Neutrophils Absolute Lymphocytes Absolute Monocytes Absolute Eosinophils Absolute Basophils Sodium 141.5 138.4 Potassium 2.7 L* 2.9 L* Chloride 112 H 110 H Carbon Dioxide 21 L 21 L Anion Gap 9 7 BUN 5 L 5 L Creatinine 0.68 0.60 Est GFR ( Amer) > 60 > 60 Est GFR (Non-Af Amer) > 60 > 60 Glucose 109 135 H Calcium 8.6 8.7 Total Bilirubin 0.9 AST 32 ALT 36 Alkaline Phosphatase 59 Total Protein 5.9 L Albumin 2.5 L 01/30/18 14:30 Blood Blood Culture - Final Enterococcus Faecalis(Group D) 01/30/18 01/30/18 01/30/18 16:05 16:05 16:05 Creatine Kinase 277 H CK-MB (CK-2) 3.87 Troponin I 0.014 NT-Pro-B Natriuret Pep 1940 H 01/31/18 01/31/18 01/31/18 00:10 05:07 05:07 Creatine Kinase 767 H CK-MB (CK-2) 4.59 H 5.33 H Troponin I 0.016 0.013 NT-Pro-B Natriuret Pep Impressions: Chest X-Ray 01/30/18 11:50 IMPRESSION: NO ACUTE RADIOGRAPHIC FINDING IN THE CHEST. Head CT 01/30/18 11:50 IMPRESSION: No definite acute findings Subacute to chronic infarct right inferolateral cerebellar hemisphere new compared to prior brain MRI 08/28/2017. Chronic infarcts in the left cerebellar hemisphere, right occipital lobe, and right posterior frontal regions, unchanged. Old infarcts in the left basal ganglia and thalamus, bifrontal and biparietal white matter unchanged. EVIDENCE OF ACUTE STROKE: NO. Assessment & Plan - Diagnosis (1) Septic shock Is this a current diagnosis for this admission?: Yes (2) Hypotension Qualifiers: Hypotension type: unspecified hypotension type Qualified Code(s): I95.9 - Hypotension, unspecified Is this a current diagnosis for this admission?: Yes (3) Urinary tract infection Qualifiers: Urinary tract infection type: site unspecified Hematuria presence: without hematuria Qualified Code(s): N39.0 - Urinary tract infection, site not specified Is this a current diagnosis for this admission?: Yes (4) Metabolic encephalopathy Is this a current diagnosis for this admission?: Yes (5) HIV (human immunodeficiency virus infection) Is this a current diagnosis for this admission?: Yes (6) Atrial fibrillation with RVR Is this a current diagnosis for this admission?: Yes (7) Gram positive septicemia Is this a current diagnosis for this admission?: Yes (8) UTI (urinary tract infection) due to Enterococcus Is this a current diagnosis for this admission?: Yes (9) Enterococcus faecalis infection Plan: Continue IV ampicillin
[2018-02-02] MEDS ORDERED: POTASSI CL 20 MEQ/50 ML RIDER 20 MEQ/50 ML RTUPB IV ONE (22:09)
[2018-02-02] MEDS: POTASSIUM CHLORIDE 10 MEQ TABLET.SA PO SCH (22:22)
[2018-02-02] MEDS: PAROXETINE HCL 20 MG TABLET PO SCH (22:22)
[2018-02-03] MEDS: AMPICILLIN SODIUM 1 GM in NORMAL SALINE 50 ML IV SCH ×4 (02:57→21:38)
[2018-02-03] MEDS ORDERED: DILTIAZEM HCL INJ 25 MG/5 ML VIAL ONE (03:49)
[2018-02-03] MEDS: DILTIAZEM HCL/D5W 125 MG/125 ML RTUINJ IV PRN ×3 (04:12→22:55)
[2018-02-03] MEDS: HEPARIN SOD (PORCINE) 5,000 UNIT/ML 1 ML SYRINGE SUBCUT SCH ×3 (06:06→21:38)
[2018-02-03 09:34] LABS: HEMATOCRIT 26.4 % (37.9-51.0); HEMOGLOBIN 8.7 g/dL (13.5-17.0); MEAN CORPUSCULAR HGB CONC 33.1 g/dL (32.0-36.0); MEAN CORPUSCULAR VOLUME 97 fl (80-97); PLATELET COUNT 118 10^3/uL (150-450); RED BLOOD COUNT 2.73 10^6/uL (4.35-5.55); WHITE BLOOD COUNT 11.5 10^3/uL (4.0-10.5)
[2018-02-03] MEDS: RALTEGRAVIR POTASSIUM 400 MG TABLET PO SCH ×2 (09:51→21:38)
[2018-02-03] MEDS: SULFAMETHOXAZOLE/TRIMETHOPRIM 800-160 MG TABLET PO SCH (09:51)
[2018-02-03] MEDS: RITONAVIR 100 MG TABLET PO SCH (09:51)
[2018-02-03] MEDS: POTASSI CL 20 MEQ/NS 1L 1,000 ML IV PRN ×2 (09:53→21:38)
[2018-02-03 09:57] LABS: ABSOLUTE LYMPHOCYTES# (MANUAL) 0.7 10^3/uL (0.5-4.7); ABSOLUTE MONOCYTES # (MANUAL) 0.3 10^3/uL (0.1-1.4); ABSOLUTE NEUTROPHILS# (MANUAL) 10.5 10^3/uL (1.7-8.2); BAND NEUTROPHILS % (MANUAL) 1 % (3-5); BASOPHILS % (MANUAL) 0 % (0-2); EOSINOPHILS % (MANUAL) 0 % (0-6); LYMPHOCYTES % (MANUAL) 5 % (13-45); MONOCYTES % (MANUAL) 3 % (3-13); SEGMENTED NEUTROPHILS % (MAN) 90 % (42-78); TOTAL CELLS COUNTED 100
[2018-02-03 09:59] LABS: ANISOCYTOSIS 1+; HYPOCHROMASIA SLIGHT; POIKILOCYTOSIS SLIGHT; TOXIC GRANULATION SLIGHT
[2018-02-03 10:00] LABS: OVALOCYTES SLIGHT; PLATELET COMMENT DECREASED; TARGET CELLS SLIGHT
[2018-02-03 10:03] LABS: ALANINE AMINOTRANSFERASE 32 U/L (21-72); ALBUMIN 2.8 g/dL (3.5-5.0); ALKALINE PHOSPHATASE 82 U/L (38-126); ANION GAP 13 (5-19); ASPARTATE AMINO TRANSFERASE 27 U/L (17-59); BILIRUBIN,DIRECT 0.8 mg/dL (0.0-0.4); BLOOD UREA NITROGEN 6 mg/dL (7-20); CALCIUM 9.2 mg/dL (8.4-10.2); CARBON DIOXIDE 19 mmol/L (22-30); CHLORIDE 110 mmol/L (98-107); GLUCOSE 112 mg/dL (75-110); SODIUM 141.7 mmol/L (137-145); TOTAL PROTEIN 6.1 g/dL (6.3-8.2)
[2018-02-03 10:19] LABS: POTASSIUM 3.9 mmol/L (3.6-5.0)
--- NOTE | 2018-02-03 11:45 | PDOC PROGRESS REPORT ---
Subjective Progress Note for:: 02/03/18 Subjective:: Patient denied any fever or chills. No nausea or vomiting but P.O intake and appetite remain poor. No chest pain or difficulty with breathing. Reason For Visit: SEPSIS Physical Exam Vital Signs: Temp Pulse Resp BP Pulse Ox 98.4 F 120 H 18 139/77 H 97 02/03/18 07:43 02/03/18 08:00 02/03/18 07:43 02/03/18 08:00 02/03/18 07:43 Intake & Output 02/02/18 02/03/18 02/04/18 06:59 06:59 06:59 Intake Total 4534 3802 Output Total 7625 3800 Balance -3091 2 Weight 60.5 kg 54.1 kg General appearance: PRESENT: thin Head exam: PRESENT: atraumatic, normocephalic Eye exam: PRESENT: conjunctiva pink, EOMI, PERRLA. ABSENT: scleral icterus Mouth exam: PRESENT: moist Teeth exam: PRESENT: poor dentation Respiratory exam: PRESENT: clear to auscultation melba, decreased breath sounds - at lung bases Cardiovascular exam: PRESENT: RRR. ABSENT: diastolic murmur, rubs, systolic murmur GI/Abdominal exam: PRESENT: normal bowel sounds, soft. ABSENT: distended, guarding, mass, organolmegaly, rebound, tenderness Extremities exam: ABSENT: pedal edema Musculoskeletal exam: PRESENT: normal inspection Neurological exam: PRESENT: alert, awake, oriented to person, oriented to place , oriented to time, oriented to situation, CN II-XII grossly intact. ABSENT: motor sensory deficit Psychiatric exam: PRESENT: appropriate affect, normal mood. ABSENT: homicidal ideation, suicidal ideation Skin exam: PRESENT: dry, intact, warm. ABSENT: cyanosis, rash Results Laboratory Results: 02/03/18 09:04 02/03/18 09:04 02/02/18 02/03/18 02/03/18 15:55 09:04 09:04 WBC 11.5 H RBC 2.73 L Hgb 8.7 L Hct 26.4 L MCV 97 MCH 32.0 MCHC 33.1 RDW 18.0 H Plt Count 118 L Seg Neutrophils % Not Reportable Lymphocytes % Not Reportable Monocytes % Not Reportable Eosinophils % Not Reportable Basophils % Not Reportable Absolute Neutrophils Not Reportable Absolute Lymphocytes Not Reportable Absolute Monocytes Not Reportable Absolute Eosinophils Not Reportable Absolute Basophils Not Reportable Sodium 138.4 141.7 Potassium 2.9 L* 3.9 D Chloride 110 H 110 H Carbon Dioxide 21 L 19 L Anion Gap 7 13 BUN 5 L 6 L Creatinine 0.60 0.65 Est GFR ( Amer) > 60 > 60 Est GFR (Non-Af Amer) > 60 > 60 Glucose 135 H 112 H Calcium 8.7 9.2 Total Bilirubin 1.0 AST 27 ALT 32 Alkaline Phosphatase 82 Total Protein 6.1 L Albumin 2.8 L 01/30/18 14:30 Blood Blood Culture - Final Enterococcus Faecalis(Group D) 01/30/18 01/30/18 01/30/18 16:05 16:05 16:05 Creatine Kinase 277 H CK-MB (CK-2) 3.87 Troponin I 0.014 NT-Pro-B Natriuret Pep 1940 H 01/31/18 01/31/18 01/31/18 00:10 05:07 05:07 Creatine Kinase 767 H CK-MB (CK-2) 4.59 H 5.33 H Troponin I 0.016 0.013 NT-Pro-B Natriuret Pep Impressions: Chest X-Ray 01/30/18 11:50 IMPRESSION: NO ACUTE RADIOGRAPHIC FINDING IN THE CHEST. Head CT 01/30/18 11:50 IMPRESSION: No definite acute findings Subacute to chronic infarct right inferolateral cerebellar hemisphere new compared to prior brain MRI 08/28/2017. Chronic infarcts in the left cerebellar hemisphere, right occipital lobe, and right posterior frontal regions, unchanged. Old infarcts in the left basal ganglia and thalamus, bifrontal and biparietal white matter unchanged. EVIDENCE OF ACUTE STROKE: NO. Assessment & Plan - Diagnosis (1) Enterococcus faecalis infection Is this a current diagnosis for this admission?: Yes Plan: Continue IV Ampicillin coverage. (2) UTI (urinary tract infection) due to Enterococcus Is this a current diagnosis for this admission?: Yes Plan: Continue IV Ampicillin coverage. 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 (5) Thrombocytopenia associated with AIDS Plan: Monitor DVT prophylaxis Lovenox therapy. (6) Adult failure to thrive syndrome Is this a current diagnosis for this admission?: Yes Plan: Probably related to his chronic diseases state and poor oral intake. Start on Megace therapy to improve appetite and oral intake. Consider oral supplementation (7) Head and neck cancer Is this a current diagnosis for this admission?: Yes Plan: Further treatment will be initiated after clearance of his acute infection state. - Time Time Spent with patient: 35 or more minutes - I had extensive discussion with patient and sister at bedside regarding care plan and head and neck cancer treatment. Medications reviewed and adjusted accordingly: Yes Anticipated discharge: SNF - for rehabilitation Within: Other - Inpatient Certification Based on my medical assessment, after consideration of the patient's comorbidities, presenting symptoms, or acuity I expect that the services needed warrant INPATIENT care.: Yes I certify that my determination is in accordance with my understanding of Medicare's requirements for reasonable and necessary INPATIENT services [42 CFR 412.3e].: Yes Medical Necessity: Need Close Monitoring Due to Risk of Patient Decompensation, Need For IV Fluids, Need For Continuous Telemetry Monitoring, Need for IV Antibiotics, Risk of Complication if Not Cared For in Hospital Post Hospital Care: D/C or Transfer Summary - Plan Summary Plan Summary: See covering attending physician orders.
[2018-02-03] MEDS ORDERED: MEGESTROL ACETATE SUSP 400 MG/10 ML UDCUP PO ONE (13:00)
[2018-02-03] MEDS: POTASSIUM CHLORIDE 10 MEQ TABLET.SA PO SCH (21:38)
[2018-02-03] MEDS: PAROXETINE HCL 20 MG TABLET PO SCH (21:38)
[2018-02-04] MEDS: AMPICILLIN SODIUM 1 GM in NORMAL SALINE 50 ML IV SCH ×4 (02:54→20:13)
[2018-02-04] MEDS: HEPARIN SOD (PORCINE) 5,000 UNIT/ML 1 ML SYRINGE SUBCUT SCH ×3 (05:29→22:23)
[2018-02-04] MEDS: DILTIAZEM HCL/D5W 125 MG/125 ML RTUINJ IV PRN (06:24)
[2018-02-04 08:33] LABS: ALANINE AMINOTRANSFERASE 30 U/L (21-72); ALBUMIN 2.8 g/dL (3.5-5.0); ALKALINE PHOSPHATASE 101 U/L (38-126); ANION GAP 11 (5-19); ASPARTATE AMINO TRANSFERASE 26 U/L (17-59); BILIRUBIN,DIRECT 0.8 mg/dL (0.0-0.4); BILIRUBIN,TOTAL 0.8 mg/dL (0.2-1.3); BLOOD UREA NITROGEN 5 mg/dL (7-20); CALCIUM 9.1 mg/dL (8.4-10.2); CARBON DIOXIDE 18 mmol/L (22-30); CHLORIDE 109 mmol/L (98-107); GLUCOSE 110 mg/dL (75-110); POTASSIUM 3.9 mmol/L (3.6-5.0); SODIUM 137.5 mmol/L (137-145); TOTAL PROTEIN 6.6 g/dL (6.3-8.2)
[2018-02-04] MEDS: MEGESTROL ACETATE SUSP 400 MG/10 ML UDCUP PO SCH (09:30)
[2018-02-04] MEDS: SULFAMETHOXAZOLE/TRIMETHOPRIM 800-160 MG TABLET PO SCH (09:30)
[2018-02-04] MEDS: RITONAVIR 100 MG TABLET PO SCH (09:31)
[2018-02-04] MEDS: RALTEGRAVIR POTASSIUM 400 MG TABLET PO SCH ×2 (09:31→22:26)
[2018-02-04] MEDS: POTASSI CL 20 MEQ/NS 1L 1,000 ML IV PRN ×2 (09:31→21:10)
--- NOTE | 2018-02-04 14:19 | PDOC PROGRESS REPORT ---
Subjective Progress Note for:: 02/04/18 Subjective:: Patient denied any fever or chills. No abdominal pain, nausea or vomiting. No chest pain or difficulty with breathing. Remain on Cardizem drip at 15 mg/hour. Reason For Visit: SEPSIS Physical Exam Vital Signs: Temp Pulse Resp BP Pulse Ox 98.9 F 109 H 14 116/63 100 02/04/18 11:42 02/04/18 11:42 02/04/18 11:42 02/04/18 12:01 02/04/18 11:42 Intake & Output 02/03/18 02/04/18 02/05/18 06:59 06:59 06:59 Intake Total 3802 3589 118 Output Total 3800 6100 1500 Balance 7 -8495 -0687 Weight 54.1 kg 66 kg Physical Exam: General appearance: PRESENT: thin Head exam: PRESENT: atraumatic, normocephalic Eye exam: PRESENT: conjunctiva pink, EOMI, PERRLA. ABSENT: scleral icterus Mouth exam: PRESENT: moist Teeth exam: PRESENT: poor dentition Respiratory exam: PRESENT: clear to auscultation melba, decreased breath sounds - at lung bases Cardiovascular exam: PRESENT: RRR. ABSENT: diastolic murmur, rubs, systolic murmur GI/Abdominal exam: PRESENT: normal bowel sounds, soft. ABSENT: distended, guarding, mass, organomegaly, rebound, tenderness Extremities exam: ABSENT: pedal edema Musculoskeletal exam: PRESENT: normal inspection Neurological exam: PRESENT: alert, awake, oriented to person, oriented to place , oriented to time, oriented to situation, CN II-XII grossly intact. ABSENT: motor sensory deficit Psychiatric exam: PRESENT: appropriate affect, normal mood. ABSENT: homicidal ideation, suicidal ideation Skin exam: PRESENT: dry, intact, warm. ABSENT: cyanosis, rash Results Laboratory Results: 02/03/18 09:04 02/04/18 07:31 02/04/18 07:31 Sodium 137.5 Potassium 3.9 Chloride 109 H Carbon Dioxide 18 L Anion Gap 11 BUN 5 L Creatinine 0.59 Est GFR ( Amer) > 60 Est GFR (Non-Af Amer) > 60 Glucose 110 Calcium 9.1 Total Bilirubin 0.8 AST 26 ALT 30 Alkaline Phosphatase 101 Total Protein 6.6 Albumin 2.8 L 01/30/18 01/30/18 01/30/18 16:05 16:05 16:05 Creatine Kinase 277 H CK-MB (CK-2) 3.87 Troponin I 0.014 NT-Pro-B Natriuret Pep 1940 H 01/31/18 01/31/18 01/31/18 00:10 05:07 05:07 Creatine Kinase 767 H CK-MB (CK-2) 4.59 H 5.33 H Troponin I 0.016 0.013 NT-Pro-B Natriuret Pep Impressions: Chest X-Ray 01/30/18 11:50 IMPRESSION: NO ACUTE RADIOGRAPHIC FINDING IN THE CHEST. Head CT 01/30/18 11:50 IMPRESSION: No definite acute findings Subacute to chronic infarct right inferolateral cerebellar hemisphere new compared to prior brain MRI 08/28/2017. Chronic infarcts in the left cerebellar hemisphere, right occipital lobe, and right posterior frontal regions, unchanged. Old infarcts in the left basal ganglia and thalamus, bifrontal and biparietal white matter unchanged. EVIDENCE OF ACUTE STROKE: NO. 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 Diabetes mellitus complication status: with unspecified complications Qualified Code(s) : E11.8 - Type 2 diabetes mellitus with unspecified complications Is this a current diagnosis for this admission?: Yes (4) HIV (human immunodeficiency virus infection) Is this a current diagnosis for this admission?: Yes (6) Adult failure to thrive syndrome Is this a current diagnosis for this admission?: Yes (7) Head and neck cancer Is this a current diagnosis for this admission?: Yes - Time Time Spent with patient: 25-34 minutes Medications reviewed and adjusted accordingly: Yes Anticipated discharge: SNF Within: Other - Inpatient Certification Based on my medical assessment, after consideration of the patient's comorbidities, presenting symptoms, or acuity I expect that the services needed warrant INPATIENT care.: Yes I certify that my determination is in accordance with my understanding of Medicare's requirements for reasonable and necessary INPATIENT services [42 CFR 412.3e].: Yes Medical Necessity: Need Close Monitoring Due to Risk of Patient Decompensation, Need For Continuous Telemetry Monitoring, Need for IV Antibiotics, Risk of Complication if Not Cared For in Hospital Post Hospital Care: D/C or Transfer Summary - Plan Summary Plan Summary: D/C Cardizem drip. Start on orl Cardizem CD 180 mg po [id number]. Maintain on all other current medication management.
[2018-02-04 15:08] LABS: TOXOPLASMA GONDII IGM AB <3.0 AU/mL (0.0-7.9)
[2018-02-04] MEDS ORDERED: DILTIAZEM HCL 180 MG CAPSULE.CR PO ONE (16:15)
[2018-02-04] MEDS: PAROXETINE HCL 20 MG TABLET PO SCH (20:13)
[2018-02-04] MEDS: DILTIAZEM HCL 180 MG CAPSULE.CR PO SCH (22:25)
[2018-02-04] MEDS: POTASSIUM CHLORIDE 10 MEQ TABLET.SA PO SCH (22:26)
[2018-02-05] MEDS: AMPICILLIN SODIUM 1 GM in NORMAL SALINE 50 ML IV SCH ×4 (02:07→20:53)
[2018-02-05] MEDS ORDERED: METRONIDAZOLE 500 MG TABLET PO ONE (03:00)
[2018-02-05 05:05] LABS: ABSOLUTE EOSINOPHILS # (AUTO) 0.1 10^3/uL (0.0-0.6); ABSOLUTE LYMPHOCYTES (AUTO) 1.3 10^3/uL (0.5-4.7); ABSOLUTE MONOCYTES (AUTO) 0.8 10^3/uL (0.1-1.4); ABSOLUTE NEUT (AUTO) 10.7 10^3/uL (1.7-8.2); BASOPHILS % (AUTO) 0.2 % (0-2); EOSINOPHILS % (AUTO) 0.5 % (0-6); HEMATOCRIT 23.4 % (37.9-51.0); LYMPHOCYTES % (AUTO) 10.1 % (13-45); MEAN CORPUSCULAR HEMOGLOBIN 31.4 pg (27.0-33.4); MEAN CORPUSCULAR HGB CONC 32.8 g/dL (32.0-36.0); MEAN CORPUSCULAR VOLUME 96 fl (80-97); MONOCYTES % (AUTO) 5.9 % (3-13); PLATELET COUNT 119 10^3/uL (150-450); RED BLOOD COUNT 2.45 10^6/uL (4.35-5.55); RED CELL DISTRIBUTION WIDTH 18.4 % (11.5-14.0); SEGMENTED NEUTROPHILS % (AUTO) 83.3 % (42-78); TOTAL CELLS COUNTED % (AUTO) 100 %; WHITE BLOOD COUNT 12.8 10^3/uL (4.0-10.5)
[2018-02-05 05:10] LABS: HEMOGLOBIN 7.7 g/dL (13.5-17.0)
[2018-02-05 05:27] LABS: ALANINE AMINOTRANSFERASE 24 U/L (21-72); ALBUMIN 2.8 g/dL (3.5-5.0); ALKALINE PHOSPHATASE 101 U/L (38-126); ANION GAP 12 (5-19); ASPARTATE AMINO TRANSFERASE 21 U/L (17-59); BILIRUBIN,DIRECT 0.5 mg/dL (0.0-0.4); BILIRUBIN,TOTAL 0.7 mg/dL (0.2-1.3); BLOOD UREA NITROGEN 3 mg/dL (7-20); CALCIUM 9.5 mg/dL (8.4-10.2); CARBON DIOXIDE 18 mmol/L (22-30); CHLORIDE 110 mmol/L (98-107); GLUCOSE 96 mg/dL (75-110); POTASSIUM 3.4 mmol/L (3.6-5.0); SODIUM 139.6 mmol/L (137-145); TOTAL PROTEIN 6.1 g/dL (6.3-8.2)
[2018-02-05] MEDS: HEPARIN SOD (PORCINE) 5,000 UNIT/ML 1 ML SYRINGE SUBCUT SCH ×3 (05:30→21:11)
[2018-02-05] MEDS: SULFAMETHOXAZOLE/TRIMETHOPRIM 800-160 MG TABLET PO SCH (10:25)
[2018-02-05] MEDS: METRONIDAZOLE 500 MG TABLET PO SCH ×2 (10:25→18:02)
[2018-02-05] MEDS: MEGESTROL ACETATE SUSP 400 MG/10 ML UDCUP PO SCH (10:25)
[2018-02-05] MEDS: DILTIAZEM HCL 180 MG CAPSULE.CR PO SCH ×2 (10:25→21:06)
[2018-02-05] MEDS: RITONAVIR 100 MG TABLET PO SCH (10:26)
[2018-02-05] MEDS: RALTEGRAVIR POTASSIUM 400 MG TABLET PO SCH ×2 (10:26→21:10)
[2018-02-05] MEDS: POTASSI CL 20 MEQ/NS 1L 1,000 ML IV PRN ×2 (10:38→21:06)
--- NOTE | 2018-02-05 20:12 | PDOC PROGRESS REPORT ---
Subjective Progress Note for:: 02/05/18 Subjective:: Patient seen by the bedside he had C. difficile colitis with diarrhea, admitted for E faecalis septicemia, UTI Reason For Visit: SEPSIS Physical Exam Vital Signs: Temp Pulse Resp BP Pulse Ox 97.9 F 110 H 18 122/80 100 02/05/18 15:34 02/05/18 19:00 02/05/18 15:34 02/05/18 15:34 02/05/18 15:34 Intake & Output 02/04/18 02/05/18 02/06/18 06:59 06:59 06:59 Intake Total 3589 2418 692 Output Total 6108 6828 4399 Balance -5017 -2359 -7667 Weight 66 kg 65.3 kg General appearance: PRESENT: no acute distress Eye exam: PRESENT: PERRLA Respiratory exam: PRESENT: clear to auscultation melba Cardiovascular exam: PRESENT: +S1, +S2 GI/Abdominal exam: PRESENT: soft Neurological exam: PRESENT: alert Results Laboratory Results: 02/05/18 04:40 02/05/18 04:40 02/05/18 02/05/18 04:40 04:40 WBC 12.8 H RBC 2.45 L Hgb 7.7 L Hct 23.4 L MCV 96 MCH 31.4 MCHC 32.8 RDW 18.4 H Plt Count 119 L Seg Neutrophils % 83.3 H Lymphocytes % 10.1 L Monocytes % 5.9 Eosinophils % 0.5 Basophils % 0.2 Absolute Neutrophils 10.7 H Absolute Lymphocytes 1.3 Absolute Monocytes 0.8 Absolute Eosinophils 0.1 Absolute Basophils 0.0 Sodium 139.6 Potassium 3.4 L Chloride 110 H Carbon Dioxide 18 L Anion Gap 12 BUN 3 L Creatinine 0.66 Est GFR ( Amer) > 60 Est GFR (Non-Af Amer) > 60 Glucose 96 Calcium 9.5 Total Bilirubin 0.7 AST 21 ALT 24 Alkaline Phosphatase 101 Total Protein 6.1 L Albumin 2.8 L 01/30/18 01/30/18 01/30/18 16:05 16:05 16:05 Creatine Kinase 277 H CK-MB (CK-2) 3.87 Troponin I 0.014 NT-Pro-B Natriuret Pep 1940 H 01/31/18 01/31/18 01/31/18 00:10 05:07 05:07 Creatine Kinase 767 H CK-MB (CK-2) 4.59 H 5.33 H Troponin I 0.016 0.013 NT-Pro-B Natriuret Pep Impressions: Chest X-Ray 01/30/18 11:50 IMPRESSION: NO ACUTE RADIOGRAPHIC FINDING IN THE CHEST. Head CT 01/30/18 11:50 IMPRESSION: No definite acute findings Subacute to chronic infarct right inferolateral cerebellar hemisphere new compared to prior brain MRI 08/28/2017. Chronic infarcts in the left cerebellar hemisphere, right occipital lobe, and right posterior frontal regions, unchanged. Old infarcts in the left basal ganglia and thalamus, bifrontal and biparietal white matter unchanged. EVIDENCE OF ACUTE STROKE: NO. Assessment & Plan - Diagnosis (1) Septic shock Is this a current diagnosis for this admission?: Yes (2) Hypotension Qualifiers: Hypotension type: unspecified hypotension type Qualified Code(s): I95.9 - Hypotension, unspecified Is this a current diagnosis for this admission?: Yes (3) Urinary tract infection Qualifiers: Urinary tract infection type: site unspecified Hematuria presence: without hematuria Qualified Code(s): N39.0 - Urinary tract infection, site not specified Is this a current diagnosis for this admission?: Yes (4) Metabolic encephalopathy Is this a current diagnosis for this admission?: Yes (5) HIV (human immunodeficiency virus infection) Is this a current diagnosis for this admission?: Yes (6) Atrial fibrillation with RVR Is this a current diagnosis for this admission?: Yes (7) Gram positive septicemia Is this a current diagnosis for this admission?: Yes (8) UTI (urinary tract infection) due to Enterococcus Is this a current diagnosis for this admission?: Yes (9) Enterococcus faecalis infection Is this a current diagnosis for this admission?: Yes (10) Clostridium difficile diarrhea Is this a current diagnosis for this admission?: Yes Plan: Start p.o. Flagyl
[2018-02-05] MEDS: PAROXETINE HCL 20 MG TABLET PO SCH (20:51)
[2018-02-05] MEDS: POTASSIUM CHLORIDE 10 MEQ TABLET.SA PO SCH (21:06)
[2018-02-05] MEDS: HALOPERIDOL LACTATE INJ 5 MG/1 ML VIAL IV PRN (23:06)
[2018-02-06] MEDS: AMPICILLIN SODIUM 1 GM in NORMAL SALINE 50 ML IV SCH ×4 (02:30→20:40)
[2018-02-06] MEDS: METRONIDAZOLE 500 MG TABLET PO SCH ×3 (02:30→17:17)
[2018-02-06 04:51] LABS: ABSOLUTE EOSINOPHILS # (AUTO) 0.1 10^3/uL (0.0-0.6); ABSOLUTE LYMPHOCYTES (AUTO) 0.7 10^3/uL (0.5-4.7); ABSOLUTE MONOCYTES (AUTO) 0.7 10^3/uL (0.1-1.4); ABSOLUTE NEUT (AUTO) 11.2 10^3/uL (1.7-8.2); BASOPHILS % (AUTO) 0.1 % (0-2); EOSINOPHILS % (AUTO) 0.9 % (0-6); HEMATOCRIT 23.5 % (37.9-51.0); LYMPHOCYTES % (AUTO) 5.6 % (13-45); MEAN CORPUSCULAR HEMOGLOBIN 31.6 pg (27.0-33.4); MEAN CORPUSCULAR HGB CONC 33.3 g/dL (32.0-36.0); MEAN CORPUSCULAR VOLUME 95 fl (80-97); MONOCYTES % (AUTO) 5.9 % (3-13); PLATELET COUNT 115 10^3/uL (150-450); RED BLOOD COUNT 2.48 10^6/uL (4.35-5.55); RED CELL DISTRIBUTION WIDTH 18.4 % (11.5-14.0); SEGMENTED NEUTROPHILS % (AUTO) 87.5 % (42-78); TOTAL CELLS COUNTED % (AUTO) 100 %; WHITE BLOOD COUNT 12.8 10^3/uL (4.0-10.5)
[2018-02-06 04:54] LABS: HEMOGLOBIN 7.8 g/dL (13.5-17.0)
[2018-02-06] MEDS: HEPARIN SOD (PORCINE) 5,000 UNIT/ML 1 ML SYRINGE SUBCUT SCH ×3 (05:09→21:19)
[2018-02-06 05:12] LABS: ALANINE AMINOTRANSFERASE 28 U/L (21-72); ALBUMIN 2.9 g/dL (3.5-5.0); ALKALINE PHOSPHATASE 102 U/L (38-126); ANION GAP 10 (5-19); ASPARTATE AMINO TRANSFERASE 22 U/L (17-59); BILIRUBIN,DIRECT 0.6 mg/dL (0.0-0.4); BILIRUBIN,TOTAL 0.6 mg/dL (0.2-1.3); BLOOD UREA NITROGEN 3 mg/dL (7-20); CALCIUM 9.5 mg/dL (8.4-10.2); CARBON DIOXIDE 16 mmol/L (22-30); CHLORIDE 117 mmol/L (98-107); GLUCOSE 102 mg/dL (75-110); POTASSIUM 3.2 mmol/L (3.6-5.0); SODIUM 143.2 mmol/L (137-145); TOTAL PROTEIN 6.6 g/dL (6.3-8.2)
[2018-02-06] MEDS: HALOPERIDOL LACTATE INJ 5 MG/1 ML VIAL IV PRN (07:00)
[2018-02-06] MEDS: METOPROLOL TARTRATE PF/INJ 5 MG/5 ML SDV IV PRN (07:46)
[2018-02-06] MEDS: SULFAMETHOXAZOLE/TRIMETHOPRIM 800-160 MG TABLET PO SCH (09:22)
[2018-02-06] MEDS: MEGESTROL ACETATE SUSP 400 MG/10 ML UDCUP PO SCH (09:22)
[2018-02-06] MEDS: DILTIAZEM HCL 180 MG CAPSULE.CR PO SCH ×2 (09:22→21:11)
[2018-02-06] MEDS: RALTEGRAVIR POTASSIUM 400 MG TABLET PO SCH ×2 (09:23→21:11)
[2018-02-06] MEDS: RITONAVIR 100 MG TABLET PO SCH (09:23)
[2018-02-06] MEDS: POTASSI CL 20 MEQ/NS 1L 1,000 ML IV PRN (10:35)
--- NOTE | 2018-02-06 20:15 | PDOC PROGRESS REPORT ---
Subjective Progress Note for:: 02/06/18 Subjective:: Patient was seen by the bedside, he is more alert and oriented today the diarrhea is less, he has hypokalemia most likely from the loose stool Reason For Visit: SEPSIS Physical Exam Vital Signs: Temp Pulse Resp BP Pulse Ox 99.1 F 116 H 16 144/88 H 100 02/06/18 16:45 02/06/18 19:00 02/06/18 16:45 02/06/18 16:45 02/06/18 16:45 Intake & Output 02/05/18 02/06/18 02/07/18 06:59 06:59 06:59 Intake Total 2418 2697 1669 Output Total 5300 2600 Balance -2882 97 1669 Weight 65.3 kg 59.8 kg General appearance: PRESENT: no acute distress Eye exam: PRESENT: PERRLA Respiratory exam: PRESENT: clear to auscultation melba Cardiovascular exam: PRESENT: +S1, +S2 GI/Abdominal exam: PRESENT: soft Neurological exam: PRESENT: alert, CN II-XII grossly intact Results Laboratory Results: 02/06/18 04:43 02/06/18 04:43 02/06/18 02/06/18 04:43 04:43 WBC 12.8 H RBC 2.48 L Hgb 7.8 L Hct 23.5 L MCV 95 MCH 31.6 MCHC 33.3 RDW 18.4 H Plt Count 115 L Seg Neutrophils % 87.5 H Lymphocytes % 5.6 L Monocytes % 5.9 Eosinophils % 0.9 Basophils % 0.1 Absolute Neutrophils 11.2 H Absolute Lymphocytes 0.7 Absolute Monocytes 0.7 Absolute Eosinophils 0.1 Absolute Basophils 0.0 Sodium 143.2 Potassium 3.2 L Chloride 117 H Carbon Dioxide 16 L Anion Gap 10 BUN 3 L Creatinine 0.65 Est GFR ( Amer) > 60 Est GFR (Non-Af Amer) > 60 Glucose 102 Calcium 9.5 Total Bilirubin 0.6 AST 22 ALT 28 Alkaline Phosphatase 102 Total Protein 6.6 Albumin 2.9 L 01/30/18 01/30/18 01/30/18 16:05 16:05 16:05 Creatine Kinase 277 H CK-MB (CK-2) 3.87 Troponin I 0.014 NT-Pro-B Natriuret Pep 1940 H 01/31/18 01/31/18 01/31/18 00:10 05:07 05:07 Creatine Kinase 767 H CK-MB (CK-2) 4.59 H 5.33 H Troponin I 0.016 0.013 NT-Pro-B Natriuret Pep Impressions: Chest X-Ray 01/30/18 11:50 IMPRESSION: NO ACUTE RADIOGRAPHIC FINDING IN THE CHEST. Head CT 01/30/18 11:50 IMPRESSION: No definite acute findings Subacute to chronic infarct right inferolateral cerebellar hemisphere new compared to prior brain MRI 08/28/2017. Chronic infarcts in the left cerebellar hemisphere, right occipital lobe, and right posterior frontal regions, unchanged. Old infarcts in the left basal ganglia and thalamus, bifrontal and biparietal white matter unchanged. EVIDENCE OF ACUTE STROKE: NO. Assessment & Plan - Diagnosis (1) Septic shock Is this a current diagnosis for this admission?: Yes (2) Hypotension Qualifiers: Hypotension type: unspecified hypotension type Qualified Code(s): I95.9 - Hypotension, unspecified Is this a current diagnosis for this admission?: Yes (3) Urinary tract infection Qualifiers: Urinary tract infection type: site unspecified Hematuria presence: without hematuria Qualified Code(s): N39.0 - Urinary tract infection, site not specified Is this a current diagnosis for this admission?: Yes (4) Metabolic encephalopathy Is this a current diagnosis for this admission?: Yes (5) HIV (human immunodeficiency virus infection) Is this a current diagnosis for this admission?: Yes (6) Atrial fibrillation with RVR Is this a current diagnosis for this admission?: Yes (7) Gram positive septicemia Is this a current diagnosis for this admission?: Yes (8) UTI (urinary tract infection) due to Enterococcus Is this a current diagnosis for this admission?: Yes (9) Enterococcus faecalis infection Is this a current diagnosis for this admission?: Yes (10) Clostridium difficile diarrhea Is this a current diagnosis for this admission?: Yes (11) Hypokalemia Is this a current diagnosis for this admission?: Yes - Plan Summary Plan Summary: Replace potassium
[2018-02-06] MEDS: PAROXETINE HCL 20 MG TABLET PO SCH (20:40)
[2018-02-06] MEDS: POTASSI CL 20 MEQ/50 ML RIDER 20 MEQ/50 ML RTUPB IV SCH ×2 (20:42→22:37)
[2018-02-06] MEDS: POTASSIUM CHLORIDE 10 MEQ TABLET.SA PO SCH (21:10)
[2018-02-07] MEDS: METOPROLOL TARTRATE PF/INJ 5 MG/5 ML SDV IV PRN (00:51)
[2018-02-07] MEDS: POTASSI CL 20 MEQ/NS 1L 1,000 ML IV PRN ×2 (00:51→20:25)
[2018-02-07] MEDS: AMPICILLIN SODIUM 1 GM in NORMAL SALINE 50 ML IV SCH ×4 (03:47→20:24)
[2018-02-07] MEDS: METRONIDAZOLE 500 MG TABLET PO SCH ×3 (03:47→17:56)
[2018-02-07] MEDS: HALOPERIDOL LACTATE INJ 5 MG/1 ML VIAL IV PRN (04:14)
[2018-02-07 06:02] LABS: ALANINE AMINOTRANSFERASE 29 U/L (21-72); ALBUMIN 2.7 g/dL (3.5-5.0); ALKALINE PHOSPHATASE 101 U/L (38-126); ANION GAP 13 (5-19); ASPARTATE AMINO TRANSFERASE 20 U/L (17-59); BILIRUBIN,DIRECT 0.5 mg/dL (0.0-0.4); BILIRUBIN,TOTAL 0.5 mg/dL (0.2-1.3); BLOOD UREA NITROGEN 3 mg/dL (7-20); CALCIUM 9.6 mg/dL (8.4-10.2); CARBON DIOXIDE 13 mmol/L (22-30); CHLORIDE 120 mmol/L (98-107); GLUCOSE 108 mg/dL (75-110); SODIUM 145.7 mmol/L (137-145); TOTAL PROTEIN 6.3 g/dL (6.3-8.2)
[2018-02-07 07:03] LABS: ABSOLUTE LYMPHOCYTES (AUTO) 0.9 10^3/uL (0.5-4.7); ABSOLUTE MONOCYTES (AUTO) 0.8 10^3/uL (0.1-1.4); ABSOLUTE NEUT (AUTO) 11.9 10^3/uL (1.7-8.2); BASOPHILS % (AUTO) 0.3 % (0-2); EOSINOPHILS % (AUTO) 0.1 % (0-6); HEMATOCRIT 20.8 % (37.9-51.0); LYMPHOCYTES % (AUTO) 6.6 % (13-45); MEAN CORPUSCULAR HEMOGLOBIN 31.5 pg (27.0-33.4); MEAN CORPUSCULAR HGB CONC 32.5 g/dL (32.0-36.0); MEAN CORPUSCULAR VOLUME 97 fl (80-97); MONOCYTES % (AUTO) 5.9 % (3-13); PLATELET COUNT 108 10^3/uL (150-450); RED BLOOD COUNT 2.15 10^6/uL (4.35-5.55); RED CELL DISTRIBUTION WIDTH 18.5 % (11.5-14.0); SEGMENTED NEUTROPHILS % (AUTO) 87.1 % (42-78); TOTAL CELLS COUNTED % (AUTO) 100 %; WHITE BLOOD COUNT 13.7 10^3/uL (4.0-10.5)
[2018-02-07 07:16] LABS: HEMOGLOBIN 6.8 g/dL (13.5-17.0)
[2018-02-07] MEDS: HEPARIN SOD (PORCINE) 5,000 UNIT/ML 1 ML SYRINGE SUBCUT SCH ×2 (07:19→13:37)
[2018-02-07 08:33] LABS: ABSOLUTE LYMPHOCYTES (AUTO) 0.7 10^3/uL (0.5-4.7); ABSOLUTE MONOCYTES (AUTO) 0.9 10^3/uL (0.1-1.4); ABSOLUTE NEUT (AUTO) 11.5 10^3/uL (1.7-8.2); BASOPHILS % (AUTO) 0.3 % (0-2); EOSINOPHILS % (AUTO) 0.3 % (0-6); HEMATOCRIT 22.3 % (37.9-51.0); LYMPHOCYTES % (AUTO) 5.1 % (13-45); MEAN CORPUSCULAR HEMOGLOBIN 31.1 pg (27.0-33.4); MEAN CORPUSCULAR HGB CONC 32.3 g/dL (32.0-36.0); MEAN CORPUSCULAR VOLUME 96 fl (80-97); MONOCYTES % (AUTO) 7.1 % (3-13); PLATELET COUNT 109 10^3/uL (150-450); RED BLOOD COUNT 2.32 10^6/uL (4.35-5.55); RED CELL DISTRIBUTION WIDTH 19.2 % (11.5-14.0); SEGMENTED NEUTROPHILS % (AUTO) 87.2 % (42-78); TOTAL CELLS COUNTED % (AUTO) 100 %; WHITE BLOOD COUNT 13.1 10^3/uL (4.0-10.5)
[2018-02-07 08:35] LABS: HEMOGLOBIN 7.2 g/dL (13.5-17.0)
[2018-02-07] MEDS: MEGESTROL ACETATE SUSP 400 MG/10 ML UDCUP PO SCH (09:42)
[2018-02-07] MEDS: MAGNESIUM SULFATE 1 GM/D5W 100 ML IV SCH ×2 (09:42→10:41)
[2018-02-07] MEDS: RITONAVIR 100 MG TABLET PO SCH (09:43)
[2018-02-07] MEDS: DILTIAZEM HCL 180 MG CAPSULE.CR PO SCH ×2 (09:43→22:00)
[2018-02-07] MEDS: RALTEGRAVIR POTASSIUM 400 MG TABLET PO SCH ×2 (09:43→22:00)
--- NOTE | 2018-02-07 20:11 | PDOC PROGRESS REPORT ---
Subjective Progress Note for:: 02/07/18 Subjective:: Patient was seen by the bedside, still have diarrhea, the hemoglobin is 7, requires blood transfusion Reason For Visit: SEPSIS Physical Exam Vital Signs: Temp Pulse Resp BP Pulse Ox 98.7 F 108 H 19 126/71 H 100 02/07/18 18:11 02/07/18 18:11 02/07/18 18:11 02/07/18 18:11 02/07/18 18:11 Intake & Output 02/06/18 02/07/18 02/08/18 06:59 06:59 06:59 Intake Total 2697 3269 1365 Output Total 2600 Balance 97 3269 1365 Weight 59.8 kg 65 kg General appearance: PRESENT: no acute distress Eye exam: PRESENT: PERRLA Respiratory exam: PRESENT: clear to auscultation melba Cardiovascular exam: PRESENT: +S1, +S2 Neurological exam: PRESENT: alert Results Laboratory Results: 02/07/18 08:05 02/07/18 04:15 02/07/18 02/07/18 02/07/18 04:15 04:15 04:15 WBC Cancelled RBC Cancelled Hgb Cancelled Hct Cancelled MCV Cancelled MCH Cancelled MCHC Cancelled RDW Cancelled Plt Count Cancelled Seg Neutrophils % Cancelled Lymphocytes % Cancelled Monocytes % Cancelled Eosinophils % Cancelled Basophils % Cancelled Absolute Neutrophils Cancelled Absolute Lymphocytes Cancelled Absolute Monocytes Cancelled Absolute Eosinophils Cancelled Absolute Basophils Cancelled Sodium 145.7 H Potassium 4.0 Chloride 120 H Carbon Dioxide 13 L Anion Gap 13 BUN 3 L Creatinine 0.72 Est GFR ( Amer) > 60 Est GFR (Non-Af Amer) > 60 Glucose 108 Calcium 9.6 Magnesium 1.2 L* Total Bilirubin 0.5 AST 20 ALT 29 Alkaline Phosphatase 101 Total Protein 6.3 Albumin 2.7 L Blood Type Antibody Screen 02/07/18 02/07/18 02/07/18 06:15 08:05 09:42 WBC 13.7 H 13.1 H RBC 2.15 L 2.32 L Hgb 6.8 L 7.2 L Hct 20.8 L 22.3 L MCV 97 96 MCH 31.5 31.1 MCHC 32.5 32.3 RDW 18.5 H 19.2 H Plt Count 108 L 109 L Seg Neutrophils % 87.1 H 87.2 H Lymphocytes % 6.6 L 5.1 L Monocytes % 5.9 7.1 Eosinophils % 0.1 0.3 Basophils % 0.3 0.3 Absolute Neutrophils 11.9 H 11.5 H Absolute Lymphocytes 0.9 0.7 Absolute Monocytes 0.8 0.9 Absolute Eosinophils 0.0 0.0 Absolute Basophils 0.0 0.0 Sodium Potassium Chloride Carbon Dioxide Anion Gap BUN Creatinine Est GFR ( Amer) Est GFR (Non-Af Amer) Glucose Calcium Magnesium Total Bilirubin AST ALT Alkaline Phosphatase Total Protein Albumin Blood Type O POSITIVE Antibody Screen NEGATIVE 01/30/18 01/30/18 01/30/18 16:05 16:05 16:05 Creatine Kinase 277 H CK-MB (CK-2) 3.87 Troponin I 0.014 NT-Pro-B Natriuret Pep 1940 H 01/31/18 01/31/18 01/31/18 00:10 05:07 05:07 Creatine Kinase 767 H CK-MB (CK-2) 4.59 H 5.33 H Troponin I 0.016 0.013 NT-Pro-B Natriuret Pep Impressions: Chest X-Ray 01/30/18 11:50 IMPRESSION: NO ACUTE RADIOGRAPHIC FINDING IN THE CHEST. Head CT 01/30/18 11:50 IMPRESSION: No definite acute findings Subacute to chronic infarct right inferolateral cerebellar hemisphere new compared to prior brain MRI 08/28/2017. Chronic infarcts in the left cerebellar hemisphere, right occipital lobe, and right posterior frontal regions, unchanged. Old infarcts in the left basal ganglia and thalamus, bifrontal and biparietal white matter unchanged. EVIDENCE OF ACUTE STROKE: NO. Assessment & Plan - Diagnosis (1) Septic shock Is this a current diagnosis for this admission?: Yes (2) Hypotension Qualifiers: Hypotension type: unspecified hypotension type Qualified Code(s): I95.9 - Hypotension, unspecified Is this a current diagnosis for this admission?: Yes (3) Urinary tract infection Qualifiers: Urinary tract infection type: site unspecified Hematuria presence: without hematuria Qualified Code(s): N39.0 - Urinary tract infection, site not specified Is this a current diagnosis for this admission?: Yes (4) Metabolic encephalopathy Is this a current diagnosis for this admission?: Yes (5) HIV (human immunodeficiency virus infection) Is this a current diagnosis for this admission?: Yes (6) Atrial fibrillation with RVR Is this a current diagnosis for this admission?: Yes (7) Gram positive septicemia Is this a current diagnosis for this admission?: Yes (8) UTI (urinary tract infection) due to Enterococcus Is this a current diagnosis for this admission?: Yes (9) Enterococcus faecalis infection Is this a current diagnosis for this admission?: Yes (10) Clostridium difficile diarrhea Is this a current diagnosis for this admission?: Yes (11) Hypokalemia Is this a current diagnosis for this admission?: Yes (12) Anemia Qualifiers: Anemia type: unspecified type Qualified Code(s): D64.9 - Anemia, unspecified Is this a current diagnosis for this admission?: Yes Plan: Transfuse, packed red blood cells
[2018-02-07] MEDS: PAROXETINE HCL 20 MG TABLET PO SCH (20:24)
[2018-02-07] MEDS: POTASSIUM CHLORIDE 10 MEQ TABLET.SA PO SCH (22:00)
[2018-02-07 22:54] LABS: HEMATOCRIT 27.9 % (37.9-51.0); HEMOGLOBIN 9.2 g/dL (13.5-17.0); MEAN CORPUSCULAR HEMOGLOBIN 30.8 pg (27.0-33.4); MEAN CORPUSCULAR HGB CONC 33.1 g/dL (32.0-36.0); MEAN CORPUSCULAR VOLUME 93 fl (80-97); PLATELET COUNT 106 10^3/uL (150-450); RED BLOOD COUNT 2.99 10^6/uL (4.35-5.55); RED CELL DISTRIBUTION WIDTH 18.3 % (11.5-14.0); WHITE BLOOD COUNT 11.9 10^3/uL (4.0-10.5)
[2018-02-08] MEDS: METOPROLOL TARTRATE PF/INJ 5 MG/5 ML SDV IV PRN ×2 (00:32→23:17)
[2018-02-08] MEDS: AMPICILLIN SODIUM 1 GM in NORMAL SALINE 50 ML IV SCH ×3 (02:17→15:31)
[2018-02-08] MEDS: METRONIDAZOLE 500 MG TABLET PO SCH ×3 (02:17→17:25)
[2018-02-08] MEDS: HEPARIN SOD (PORCINE) 5,000 UNIT/ML 1 ML SYRINGE SUBCUT SCH ×3 (05:22→21:10)
[2018-02-08 05:45] LABS: ABSOLUTE EOSINOPHILS # (AUTO) 0.1 10^3/uL (0.0-0.6); ABSOLUTE LYMPHOCYTES (AUTO) 0.7 10^3/uL (0.5-4.7); ABSOLUTE NEUT (AUTO) 10.6 10^3/uL (1.7-8.2); BASOPHILS % (AUTO) 0.1 % (0-2); EOSINOPHILS % (AUTO) 0.7 % (0-6); HEMATOCRIT 29.2 % (37.9-51.0); HEMOGLOBIN 9.6 g/dL (13.5-17.0); LYMPHOCYTES % (AUTO) 5.7 % (13-45); MEAN CORPUSCULAR HGB CONC 32.7 g/dL (32.0-36.0); MEAN CORPUSCULAR VOLUME 95 fl (80-97); MONOCYTES % (AUTO) 8.1 % (3-13); PLATELET COUNT 110 10^3/uL (150-450); RED BLOOD COUNT 3.08 10^6/uL (4.35-5.55); RED CELL DISTRIBUTION WIDTH 19.1 % (11.5-14.0); SEGMENTED NEUTROPHILS % (AUTO) 85.4 % (42-78); TOTAL CELLS COUNTED % (AUTO) 100 %; WHITE BLOOD COUNT 12.4 10^3/uL (4.0-10.5)
[2018-02-08 06:01] LABS: ALANINE AMINOTRANSFERASE 21 U/L (21-72); ALBUMIN 2.7 g/dL (3.5-5.0); ALKALINE PHOSPHATASE 99 U/L (38-126); ANION GAP 14 (5-19); ASPARTATE AMINO TRANSFERASE 19 U/L (17-59); BILIRUBIN,DIRECT 0.6 mg/dL (0.0-0.4); BILIRUBIN,TOTAL 0.9 mg/dL (0.2-1.3); BLOOD UREA NITROGEN 2 mg/dL (7-20); CALCIUM 9.7 mg/dL (8.4-10.2); CARBON DIOXIDE 12 mmol/L (22-30); CHLORIDE 122 mmol/L (98-107); GLUCOSE 99 mg/dL (75-110); POTASSIUM 3.8 mmol/L (3.6-5.0); SODIUM 148.4 mmol/L (137-145); TOTAL PROTEIN 6.4 g/dL (6.3-8.2)
[2018-02-08] MEDS: RALTEGRAVIR POTASSIUM 400 MG TABLET PO SCH ×2 (09:19→21:10)
[2018-02-08] MEDS: MEGESTROL ACETATE SUSP 400 MG/10 ML UDCUP PO SCH (09:19)
[2018-02-08] MEDS: DILTIAZEM HCL 180 MG CAPSULE.CR PO SCH ×2 (09:19→21:10)
[2018-02-08] MEDS: RITONAVIR 100 MG TABLET PO SCH (09:19)
[2018-02-08] MEDS: POTASSI CL 20 MEQ/NS 1L 1,000 ML IV PRN ×2 (09:25→20:10)
[2018-02-08] MEDS: PAROXETINE HCL 20 MG TABLET PO SCH (20:12)
[2018-02-08] MEDS: POTASSIUM CHLORIDE 10 MEQ TABLET.SA PO SCH (21:10)
--- NOTE | 2018-02-08 21:23 | PDOC PROGRESS REPORT ---
Subjective Progress Note for:: 02/08/18 Subjective:: Patient seen by the bedside, nurses stated that he has a low p.o. intake, still have diarrhea, Reason For Visit: SEPSIS Physical Exam Vital Signs: Temp Pulse Resp BP Pulse Ox 97.9 F 108 H 24 H 139/76 H 100 02/08/18 19:47 02/08/18 19:47 02/08/18 19:47 02/08/18 19:47 02/08/18 19:47 Intake & Output 02/07/18 02/08/18 02/09/18 06:59 06:59 06:59 Intake Total 3269 3465 2100 Balance 3269 3465 2100 Weight 65 kg 65.9 kg General appearance: PRESENT: no acute distress Eye exam: PRESENT: PERRLA Respiratory exam: PRESENT: clear to auscultation melba Cardiovascular exam: PRESENT: +S1, +S2 GI/Abdominal exam: PRESENT: soft Neurological exam: PRESENT: alert Results Laboratory Results: 02/08/18 04:22 02/08/18 04:22 02/07/18 02/07/18 02/08/18 11:25 22:00 04:22 WBC 11.9 H 12.4 H RBC 2.99 L 3.08 L Hgb 9.2 L 9.6 L Hct 27.9 L 29.2 L MCV 93 95 MCH 30.8 31.0 MCHC 33.1 32.7 RDW 18.3 H 19.1 H Plt Count 106 L 110 L Seg Neutrophils % 85.4 H Lymphocytes % 5.7 L Monocytes % 8.1 Eosinophils % 0.7 Basophils % 0.1 Absolute Neutrophils 10.6 H Absolute Lymphocytes 0.7 Absolute Monocytes 1.0 Absolute Eosinophils 0.1 Absolute Basophils 0.0 Sodium Potassium Chloride Carbon Dioxide Anion Gap BUN Creatinine Est GFR ( Amer) Est GFR (Non-Af Amer) Glucose Calcium Magnesium Total Bilirubin AST ALT Alkaline Phosphatase Total Protein Albumin Stool Occult Blood POSITIVE 02/08/18 04:22 WBC RBC Hgb Hct MCV MCH MCHC RDW Plt Count Seg Neutrophils % Lymphocytes % Monocytes % Eosinophils % Basophils % Absolute Neutrophils Absolute Lymphocytes Absolute Monocytes Absolute Eosinophils Absolute Basophils Sodium 148.4 H Potassium 3.8 Chloride 122 H Carbon Dioxide 12 L Anion Gap 14 BUN 2 L Creatinine 0.77 Est GFR ( Amer) > 60 Est GFR (Non-Af Amer) > 60 Glucose 99 Calcium 9.7 Magnesium 1.7 Total Bilirubin 0.9 AST 19 ALT 21 Alkaline Phosphatase 99 Total Protein 6.4 Albumin 2.7 L Stool Occult Blood 01/30/18 01/30/18 01/30/18 16:05 16:05 16:05 Creatine Kinase 277 H CK-MB (CK-2) 3.87 Troponin I 0.014 NT-Pro-B Natriuret Pep 1940 H 01/31/18 01/31/18 01/31/18 00:10 05:07 05:07 Creatine Kinase 767 H CK-MB (CK-2) 4.59 H 5.33 H Troponin I 0.016 0.013 NT-Pro-B Natriuret Pep Impressions: Chest X-Ray 01/30/18 11:50 IMPRESSION: NO ACUTE RADIOGRAPHIC FINDING IN THE CHEST. Head CT 01/30/18 11:50 IMPRESSION: No definite acute findings Subacute to chronic infarct right inferolateral cerebellar hemisphere new compared to prior brain MRI 08/28/2017. Chronic infarcts in the left cerebellar hemisphere, right occipital lobe, and right posterior frontal regions, unchanged. Old infarcts in the left basal ganglia and thalamus, bifrontal and biparietal white matter unchanged. EVIDENCE OF ACUTE STROKE: NO. Assessment & Plan - Diagnosis (1) Septic shock Is this a current diagnosis for this admission?: Yes (2) Hypotension Qualifiers: Hypotension type: unspecified hypotension type Qualified Code(s): I95.9 - Hypotension, unspecified Is this a current diagnosis for this admission?: Yes (3) Urinary tract infection Qualifiers: Urinary tract infection type: site unspecified Hematuria presence: without hematuria Qualified Code(s): N39.0 - Urinary tract infection, site not specified Is this a current diagnosis for this admission?: Yes (4) Metabolic encephalopathy Is this a current diagnosis for this admission?: Yes (5) HIV (human immunodeficiency virus infection) Is this a current diagnosis for this admission?: Yes (6) Atrial fibrillation with RVR Is this a current diagnosis for this admission?: Yes (7) Gram positive septicemia Is this a current diagnosis for this admission?: Yes (8) UTI (urinary tract infection) due to Enterococcus Is this a current diagnosis for this admission?: Yes (9) Enterococcus faecalis infection Is this a current diagnosis for this admission?: Yes (10) Clostridium difficile diarrhea Is this a current diagnosis for this admission?: Yes (11) Hypokalemia Is this a current diagnosis for this admission?: Yes (12) Anemia Qualifiers: Anemia type: unspecified type Qualified Code(s): D64.9 - Anemia, unspecified Is this a current diagnosis for this admission?: Yes - Plan Summary Plan Summary: Continue IV antibiotic, continue p.o. Flagyl
[2018-02-09] MEDS: METRONIDAZOLE 500 MG TABLET PO SCH ×3 (02:05→18:01)
[2018-02-09 04:55] LABS: ABSOLUTE EOSINOPHILS # (AUTO) 0.1 10^3/uL (0.0-0.6); ABSOLUTE NEUT (AUTO) 11.3 10^3/uL (1.7-8.2); BASOPHILS % (AUTO) 0.2 % (0-2); EOSINOPHILS % (AUTO) 0.5 % (0-6); HEMATOCRIT 29.3 % (37.9-51.0); HEMOGLOBIN 9.8 g/dL (13.5-17.0); LYMPHOCYTES % (AUTO) 7.6 % (13-45); MEAN CORPUSCULAR HEMOGLOBIN 31.3 pg (27.0-33.4); MEAN CORPUSCULAR HGB CONC 33.4 g/dL (32.0-36.0); MEAN CORPUSCULAR VOLUME 94 fl (80-97); MONOCYTES % (AUTO) 7.4 % (3-13); PLATELET COUNT 118 10^3/uL (150-450); RED BLOOD COUNT 3.12 10^6/uL (4.35-5.55); RED CELL DISTRIBUTION WIDTH 18.8 % (11.5-14.0); SEGMENTED NEUTROPHILS % (AUTO) 84.3 % (42-78); TOTAL CELLS COUNTED % (AUTO) 100 %; WHITE BLOOD COUNT 13.4 10^3/uL (4.0-10.5)
[2018-02-09 05:04] LABS: ALANINE AMINOTRANSFERASE 31 U/L (21-72); ALBUMIN 2.6 g/dL (3.5-5.0); ALKALINE PHOSPHATASE 90 U/L (38-126); ANION GAP 13 (5-19); ASPARTATE AMINO TRANSFERASE 19 U/L (17-59); BILIRUBIN,DIRECT 0.7 mg/dL (0.0-0.4); BILIRUBIN,TOTAL 0.7 mg/dL (0.2-1.3); BLOOD UREA NITROGEN 3 mg/dL (7-20); CALCIUM 10.1 mg/dL (8.4-10.2); CHLORIDE 131 mmol/L (98-107); GLUCOSE 86 mg/dL (75-110); POTASSIUM 3.4 mmol/L (3.6-5.0); SODIUM 153.1 mmol/L (137-145); TOTAL PROTEIN 6.7 g/dL (6.3-8.2)
[2018-02-09 05:12] LABS: CARBON DIOXIDE 9 mmol/L (22-30)
[2018-02-09] MEDS ORDERED: DEXTROSE 5%-WATER 1000 ML 1,000 ML with POTASSIUM CHLORIDE 40 MEQ IV PRN ×2 (05:24)
[2018-02-09] MEDS: DEXTROSE 50%-WATER SYRINGE 25 GM/50 ML DOSE IV PRN (06:25)
[2018-02-09] MEDS: HEPARIN SOD (PORCINE) 5,000 UNIT/ML 1 ML SYRINGE SUBCUT SCH ×3 (06:25→21:52)
[2018-02-09] MEDS ORDERED: POTASSI CL 40 MEQ/D5-1/2NS 1L 1000 ML IV PRN (06:36)
[2018-02-09] MEDS ORDERED: POTASSI CL 40 MEQ/D5-1/2NS 1L 40 MEQ/1,000 ML RTUINJ IV ONE (06:37)
[2018-02-09] MEDS: RALTEGRAVIR POTASSIUM 400 MG TABLET PO SCH ×2 (09:59→21:32)
[2018-02-09] MEDS: ACETAMINOPHEN 325 MG TABLET PO PRN ×2 (09:59→18:01)
[2018-02-09] MEDS: MEGESTROL ACETATE SUSP 400 MG/10 ML UDCUP PO SCH (09:59)
[2018-02-09] MEDS: DILTIAZEM HCL 180 MG CAPSULE.CR PO SCH ×2 (09:59→21:31)
[2018-02-09] MEDS: RITONAVIR 100 MG TABLET PO SCH (09:59)
[2018-02-09] MEDS: METOPROLOL TARTRATE PF/INJ 5 MG/5 ML SDV IV PRN ×2 (13:23→17:46)
[2018-02-09] MEDS: DEXTROSE 5%-WATER 1000 ML 1,000 ML with POTASSIUM CHLORIDE 40 MEQ IV PRN ×2 (15:21)
[2018-02-09] MEDS ORDERED: DEXTROSE 5%-WATER 1000 ML 1,000 ML with SODIUM BICARBONATE 50 MEQ IV PRN ×2 (18:28)
--- NOTE | 2018-02-09 18:54 | RADIOLOGY REPORT (SQ) ---
EXAM DESCRIPTION: CHEST SINGLE VIEW COMPLETED DATE/TIME: 02/09/2018 6:46 pm REASON FOR STUDY: change in breathing status COMPARISON: 01/30/2018 EXAM PARAMETERS: NUMBER OF VIEWS: One view. TECHNIQUE: Single frontal radiographic view of the chest acquired. RADIATION DOSE: NA LIMITATIONS: None. FINDINGS: LUNGS AND PLEURA: No new opacities, masses or pneumothorax. No pleural effusion. MEDIASTINUM AND HILAR STRUCTURES: No masses. Contour normal. HEART AND VASCULAR STRUCTURES: Heart stable in size. Normal vasculature. BONES: No acute findings. HARDWARE: Stable. OTHER: No other significant finding. IMPRESSION: NO ACUTE RADIOGRAPHIC FINDING IN THE CHEST. NO SIGNIFICANT CHANGE FROM PRIOR STUDY. TECHNICAL DOCUMENTATION: JOB ID: [id number] [employer]- All Rights Reserved Reading location - IP/workstation name: [email or web address]
[2018-02-09 19:06] LABS: ARTERIAL BLOOD BASE EXCESS -11.8 mmol/L; ARTERIAL BLOOD HCO3 12.1 mmol/L (20-26); ARTERIAL BLOOD O2 SATURATION 96.8 % (94-98); ARTERIAL BLOOD PO2 85.5 mmHg (80-100); ARTERIAL BLOOD TOTAL CO2 12.7 mmol/L (23-27)
[2018-02-09 19:11] LABS: ARTERIAL BLOOD FIO2 2L
--- NOTE | 2018-02-09 19:29 | PROGRESS NOTE E ---
Progress Note NAME: RAE MONTEMAYOR : 1960 AGE: 57Y DATE: 02/09/2018 ROOM: 303 SUBJECTIVE: This is a patient of Dr. Kwon with a history of HIV, admitted for septic shock and multiple other comorbidities. Nursing noticed that the patient had a little bit more difficulty in breathing and the patient's sodium was high and more confused. Doctor Cher earlier rounded the patient and put on the D5W added the potassium. When I saw the patient on the floor the patient was alert, awake, answering the questions, not in any acute distress but the patient according to the nurses more confusion noticed. The patient also has a history of HIV with weight loss and the patient has some metabolic encephalopathy infections, multiple other comorbidities. The patient also has an Enterococcus faecalis in the blood, but I do not see any antibiotics. The patient also with C. diff and currently on p.o. Flagyl. The patient at this point with further workup for the sepsis. OBJECTIVE: VITAL SIGNS: Blood pressure was 124/73, temperature earlier was 101.3, respirations was 18, saturation 100% on room air. GENERAL: The patient is lying in bed. Alert, awake, very cachectic. The patient answered the questions. HEAD AND NECK: Normocephalic. PERRLA. LUNGS: No wheezing, no rales. HEART: S1, S2 is present. ABDOMEN: Soft. Hyperactive bowel sounds present. EXTREMITIES: No edema. NEUROLOGIC: The patient moves all 4 extremities. Alert, awake, answers the questions. LABORATORY DATA: The patient's earlier lab, today this morning, WBC 13.4, hemoglobin is 9.8, platelet is 118, and neutrophils 84.3. The patient's chemistries; sodium is 153, potassium 3.4, CO2 is 9, creatinine is 1.20. The patient's sugar is 114. The patient's albumin is 2.6. The patient's C. diff is also positive. Microbiology noticed the Enterococcus faecalis group D, which is sensitive to daptomycin and several other antibiotics. The patient's urine culture earlier was Enterococcus faecalis. ASSESSMENT: 1. ALTERED MENTAL STATUS. 2. ENTEROCOCCUS FAECALIS SEPTICEMIA. 3. SEVERE METABOLIC ACIDOSIS. 4. HIV. 5. HYPOTENSION. 6. METABOLIC ENCEPHALOPATHY. 7. ATRIAL FIBRILLATION. 8. URINARY TRACT INFECTION. 9. C. DIFF COLITIS. 10. HYPERNATREMIA. PLAN: At this point start the patient on daptomycin which is sensitive to the Enterococcus faecalis while the patient has fever, chills, and this possible septicemia. We will continue the Flagyl to the IV, while the patient's p.o. intake is very poor. We will also get the blood culture, urine culture, chest x-ray, ABG for septic workup. We will also consult pulmonary for further evaluation. We will put the patient on sodium bicarb with severe acidosis. The patient is currently pretty sick at this point. We will contact the patient's sisters regarding the patient's current condition. The patient's PEG tube is still there and the nurses telling me that they are not able to use the PEG tube because Dr. Kwon told them not to use the PEG tube. I do not know what the reason at this point, so we will ask the surgeon to evaluate the PEG tube, if it is working or not, and maybe continue to use the PEG tube while the patient has a little more risk for aspiration. We will get the CD4 count to assess for the antibiotic use. We will continue to closely monitor. DICTATING PHYSICIAN: AMY ERICKSON M.D. [id number] PHY#: [id number] ID: [id number] JOB#: [id number] ACCT: [id number] cc: >
--- NOTE | 2018-02-09 20:22 | PDOC PROGRESS REPORT ---
Subjective Progress Note for:: 02/09/18 Subjective:: Patient was seen by the bedside earlier this morning, he has hypernatremia with low sodium bicarbonate, he continues to have diarrhea, Reason For Visit: SEPSIS Physical Exam Vital Signs: Temp Pulse Resp BP Pulse Ox 101.3 F H 109 H 18 124/73 100 02/09/18 15:30 02/09/18 15:30 02/09/18 15:30 02/09/18 15:30 02/09/18 15:30 Intake & Output 02/08/18 02/09/18 02/10/18 06:59 06:59 06:59 Intake Total 3465 2940 1240 Balance 3465 2940 1240 Weight 65.9 kg 65.5 kg General appearance: PRESENT: no acute distress Eye exam: PRESENT: PERRLA Respiratory exam: PRESENT: clear to auscultation melba Cardiovascular exam: PRESENT: +S1, +S2 GI/Abdominal exam: PRESENT: soft Neurological exam: PRESENT: alert Results Laboratory Results: 02/09/18 04:00 02/09/18 02/09/18 02/09/18 04:00 04:00 18:40 WBC 13.4 H RBC 3.12 L Hgb 9.8 L Hct 29.3 L MCV 94 MCH 31.3 MCHC 33.4 RDW 18.8 H Plt Count 118 L Seg Neutrophils % 84.3 H Lymphocytes % 7.6 L Monocytes % 7.4 Eosinophils % 0.5 Basophils % 0.2 Absolute Neutrophils 11.3 H Absolute Lymphocytes 1.0 Absolute Monocytes 1.0 Absolute Eosinophils 0.1 Absolute Basophils 0.0 Carbonic Acid 0.60 L HCO3/H2CO3 Ratio 20:1 ABG pH 7.40 ABG pCO2 20.0 L* ABG pO2 85.5 ABG HCO3 12.1 L ABG O2 Saturation 96.8 ABG Base Excess -11.8 FiO2 2L Sodium 153.1 H Potassium 3.4 L Chloride 131 H Carbon Dioxide 9 L* Anion Gap 13 BUN 3 L Creatinine 1.20 Est GFR ( Amer) > 60 Est GFR (Non-Af Amer) > 60 Glucose 86 Calcium 10.1 Total Bilirubin 0.7 AST 19 ALT 31 Alkaline Phosphatase 90 Total Protein 6.7 Albumin 2.6 L 01/30/18 01/30/18 01/30/18 16:05 16:05 16:05 Creatine Kinase 277 H CK-MB (CK-2) 3.87 Troponin I 0.014 NT-Pro-B Natriuret Pep 1940 H 01/31/18 01/31/18 01/31/18 00:10 05:07 05:07 Creatine Kinase 767 H CK-MB (CK-2) 4.59 H 5.33 H Troponin I 0.016 0.013 NT-Pro-B Natriuret Pep Impressions: Head CT 01/30/18 11:50 IMPRESSION: No definite acute findings Subacute to chronic infarct right inferolateral cerebellar hemisphere new compared to prior brain MRI 08/28/2017. Chronic infarcts in the left cerebellar hemisphere, right occipital lobe, and right posterior frontal regions, unchanged. Old infarcts in the left basal ganglia and thalamus, bifrontal and biparietal white matter unchanged. EVIDENCE OF ACUTE STROKE: NO. Chest X-Ray 02/09/18 00:00 IMPRESSION: NO ACUTE RADIOGRAPHIC FINDING IN THE CHEST. NO SIGNIFICANT CHANGE FROM PRIOR STUDY. Assessment & Plan - Diagnosis (1) Septic shock Is this a current diagnosis for this admission?: Yes (2) Hypotension Qualifiers: Hypotension type: unspecified hypotension type Qualified Code(s): I95.9 - Hypotension, unspecified Is this a current diagnosis for this admission?: Yes (3) Urinary tract infection Qualifiers: Urinary tract infection type: site unspecified Hematuria presence: without hematuria Qualified Code(s): N39.0 - Urinary tract infection, site not specified Is this a current diagnosis for this admission?: Yes (4) Metabolic encephalopathy Is this a current diagnosis for this admission?: Yes (5) HIV (human immunodeficiency virus infection) Is this a current diagnosis for this admission?: Yes (6) Atrial fibrillation with RVR Is this a current diagnosis for this admission?: Yes (7) Gram positive septicemia Is this a current diagnosis for this admission?: Yes (8) UTI (urinary tract infection) due to Enterococcus Is this a current diagnosis for this admission?: Yes (9) Enterococcus faecalis infection Is this a current diagnosis for this admission?: Yes (10) Clostridium difficile diarrhea Is this a current diagnosis for this admission?: Yes (11) Hypokalemia Is this a current diagnosis for this admission?: Yes (12) Anemia Qualifiers: Anemia type: unspecified type Qualified Code(s): D64.9 - Anemia, unspecified Is this a current diagnosis for this admission?: Yes (13) Hypernatremia Is this a current diagnosis for this admission?: Yes Plan: change fluid to 5% dextrose
[2018-02-09 20:37] LABS: ANION GAP 12 (5-19); BLOOD UREA NITROGEN 3 mg/dL (7-20); CALCIUM 10.4 mg/dL (8.4-10.2); CARBON DIOXIDE 12 mmol/L (22-30); CHLORIDE 132 mmol/L (98-107); POTASSIUM 3.5 mmol/L (3.6-5.0); SODIUM 155.8 mmol/L (137-145)
[2018-02-09 20:38] LABS: GLUCOSE 133 mg/dL (75-110)
[2018-02-09] MEDS: PAROXETINE HCL 20 MG TABLET PO SCH (21:27)
[2018-02-09] MEDS: POTASSIUM CHLORIDE 10 MEQ TABLET.SA PO SCH (21:29)
[2018-02-09] MEDS: SODIUM BICARBONATE 650 MG TABLET PO SCH (21:35)
[2018-02-10] MEDS: METRONIDAZOLE 500 MG TABLET PO SCH ×2 (02:35→10:26)
[2018-02-10] MEDS ORDERED: ACETAMINOPHEN 650 MG SUPP.RECT PR ONE ×2 (03:28→04:00)
[2018-02-10] MEDS ORDERED: ACETAMINOPHEN 650 MG SUPP.RECT PR PRN (03:54)
[2018-02-10] MEDS: SODIUM BICARBONATE 650 MG TABLET PO SCH ×3 (05:07→21:52)
[2018-02-10] MEDS: HEPARIN SOD (PORCINE) 5,000 UNIT/ML 1 ML SYRINGE SUBCUT SCH ×2 (05:07→14:47)
[2018-02-10 05:16] LABS: ABSOLUTE EOSINOPHILS # (AUTO) 0.1 10^3/uL (0.0-0.6); ABSOLUTE LYMPHOCYTES (AUTO) 1.3 10^3/uL (0.5-4.7); ABSOLUTE MONOCYTES (AUTO) 0.7 10^3/uL (0.1-1.4); BASOPHILS % (AUTO) 0.2 % (0-2); EOSINOPHILS % (AUTO) 0.6 % (0-6); HEMATOCRIT 26.8 % (37.9-51.0); HEMOGLOBIN 8.7 g/dL (13.5-17.0); LYMPHOCYTES % (AUTO) 8.9 % (13-45); MEAN CORPUSCULAR HEMOGLOBIN 30.5 pg (27.0-33.4); MEAN CORPUSCULAR HGB CONC 32.4 g/dL (32.0-36.0); MEAN CORPUSCULAR VOLUME 94 fl (80-97); MONOCYTES % (AUTO) 4.7 % (3-13); PLATELET COUNT 100 10^3/uL (150-450); RED BLOOD COUNT 2.84 10^6/uL (4.35-5.55); RED CELL DISTRIBUTION WIDTH 18.9 % (11.5-14.0); SEGMENTED NEUTROPHILS % (AUTO) 85.6 % (42-78); TOTAL CELLS COUNTED % (AUTO) 100 %; WHITE BLOOD COUNT 15.2 10^3/uL (4.0-10.5)
[2018-02-10 05:28] LABS: ALANINE AMINOTRANSFERASE 23 U/L (21-72); ALBUMIN 2.4 g/dL (3.5-5.0); ALKALINE PHOSPHATASE 78 U/L (38-126); ANION GAP 11 (5-19); ASPARTATE AMINO TRANSFERASE 15 U/L (17-59); BILIRUBIN,DIRECT 0.6 mg/dL (0.0-0.4); BILIRUBIN,TOTAL 0.6 mg/dL (0.2-1.3); BLOOD UREA NITROGEN 5 mg/dL (7-20); CALCIUM 10.2 mg/dL (8.4-10.2); CARBON DIOXIDE 11 mmol/L (22-30); CHLORIDE 135 mmol/L (98-107); GLUCOSE 157 mg/dL (75-110); POTASSIUM 3.4 mmol/L (3.6-5.0); SODIUM 157.1 mmol/L (137-145); TOTAL PROTEIN 6.3 g/dL (6.3-8.2)
[2018-02-10] MEDS: DEXTROSE 5%-WATER 1000 ML 1,000 ML with POTASSIUM CHLORIDE 40 MEQ IV PRN ×2 (06:40)
[2018-02-10] MEDS: DAPTOMYCIN 500 MG in NORMAL SALINE 50 ML IV SCH (10:24)
[2018-02-10] MEDS: METOPROLOL TARTRATE PF/INJ 5 MG/5 ML SDV IV PRN (10:25)
[2018-02-10] MEDS: RALTEGRAVIR POTASSIUM 400 MG TABLET PO SCH ×2 (10:26→21:52)
[2018-02-10] MEDS: RITONAVIR 100 MG TABLET PO SCH (10:26)
[2018-02-10] MEDS: DILTIAZEM HCL 180 MG CAPSULE.CR PO SCH ×2 (10:26→21:52)
[2018-02-10] MEDS: MEGESTROL ACETATE SUSP 400 MG/10 ML UDCUP PO SCH (10:26)
--- NOTE | 2018-02-10 11:56 | PDOC PROGRESS REPORT ---
Subjective Progress Note for:: 02/10/18 Subjective:: Patient is currently doing same still very lethargic Patient's sodium is still going up Still running a fever 101 Was started on daptomycin's yesterday with the yl Family on bedside with the sister discuss about the patient's current conditions and patients currently put on a DNR/DNI Reason For Visit: SEPSIS Physical Exam Vital Signs: Temp Pulse Resp BP Pulse Ox 98.8 F 68 18 132/80 H 90 L 02/10/18 08:20 02/10/18 08:20 02/10/18 08:20 02/10/18 08:20 02/10/18 08:20 Intake & Output 02/09/18 02/10/18 02/11/18 06:59 06:59 06:59 Intake Total 2940 2702 Balance 2940 2702 Weight 65.5 kg 63.6 kg General appearance: PRESENT: no acute distress Eye exam: PRESENT: PERRLA Mouth exam: PRESENT: neck supple Respiratory exam: PRESENT: decreased breath sounds Cardiovascular exam: PRESENT: +S1, +S2 GI/Abdominal exam: PRESENT: normal bowel sounds, soft Additonal comments: PEG tube is intact Extremities exam: ABSENT: pedal edema Neurological exam: PRESENT: alert, awake Additional comments: Little bit more lethargic Results Laboratory Results: 02/10/18 04:55 02/10/18 04:55 02/09/18 02/09/18 02/10/18 18:40 19:50 04:55 WBC 15.2 H RBC 2.84 L Hgb 8.7 L Hct 26.8 L MCV 94 MCH 30.5 MCHC 32.4 RDW 18.9 H Plt Count 100 L Seg Neutrophils % 85.6 H Lymphocytes % 8.9 L Monocytes % 4.7 Eosinophils % 0.6 Basophils % 0.2 Absolute Neutrophils 13.0 H Absolute Lymphocytes 1.3 Absolute Monocytes 0.7 Absolute Eosinophils 0.1 Absolute Basophils 0.0 Carbonic Acid 0.60 L HCO3/H2CO3 Ratio 20:1 ABG pH 7.40 ABG pCO2 20.0 L* ABG pO2 85.5 ABG HCO3 12.1 L ABG O2 Saturation 96.8 ABG Base Excess -11.8 FiO2 2L Sodium 155.8 H Potassium 3.5 L Chloride 132 H Carbon Dioxide 12 L Anion Gap 12 BUN 3 L Creatinine 1.64 H Est GFR ( Amer) 52 L Est GFR (Non-Af Amer) 43 L Glucose 133 H Calcium 10.4 H Total Bilirubin AST ALT Alkaline Phosphatase Total Protein Albumin 02/10/18 04:55 WBC RBC Hgb Hct MCV MCH MCHC RDW Plt Count Seg Neutrophils % Lymphocytes % Monocytes % Eosinophils % Basophils % Absolute Neutrophils Absolute Lymphocytes Absolute Monocytes Absolute Eosinophils Absolute Basophils Carbonic Acid HCO3/H2CO3 Ratio ABG pH ABG pCO2 ABG pO2 ABG HCO3 ABG O2 Saturation ABG Base Excess FiO2 Sodium 157.1 H Potassium 3.4 L Chloride 135 H Carbon Dioxide 11 L Anion Gap 11 BUN 5 L Creatinine 1.83 H Est GFR ( Amer) 46 L Est GFR (Non-Af Amer) 38 L Glucose 157 H Calcium 10.2 Total Bilirubin 0.6 AST 15 L ALT 23 Alkaline Phosphatase 78 Total Protein 6.3 Albumin 2.4 L 01/30/18 01/30/18 01/30/18 16:05 16:05 16:05 Creatine Kinase 277 H CK-MB (CK-2) 3.87 Troponin I 0.014 NT-Pro-B Natriuret Pep 1940 H 01/31/18 01/31/18 01/31/18 00:10 05:07 05:07 Creatine Kinase 767 H CK-MB (CK-2) 4.59 H 5.33 H Troponin I 0.016 0.013 NT-Pro-B Natriuret Pep Impressions: Chest X-Ray 02/09/18 00:00 IMPRESSION: NO ACUTE RADIOGRAPHIC FINDING IN THE CHEST. NO SIGNIFICANT CHANGE FROM PRIOR STUDY. Assessment & Plan - Diagnosis (1) Acute renal failure Qualifiers: Acute renal failure type: unspecified Qualified Code(s): N17.9 - Acute kidney failure, unspecified Is this a current diagnosis for this admission?: Yes Plan: Continues to IV fluid will wait for the CT abdomen and pelvis Continues to sodium bicarb with a severe renal acidosis (2) Clostridium difficile diarrhea Is this a current diagnosis for this admission?: Yes Plan: We will repeat the C. difficile while patient on the p.o. Flagyl is still not responding will be considered to p.o. vancomycin (3) Enterococcus faecalis infection Is this a current diagnosis for this admission?: Yes Plan: We will continues to daptomycin's will repeat the blood culture urine culture (4) HIV (human immunodeficiency virus infection) Is this a current diagnosis for this admission?: Yes Plan: We will check a CD4 count (5) Hypernatremia Is this a current diagnosis for this admission?: Yes Plan: Continue to D5W at 100 cc/h (6) Hypokalemia Is this a current diagnosis for this admission?: Yes (7) Metabolic encephalopathy Is this a current diagnosis for this admission?: Yes Plan: Replace the potassium (8) Adult failure to thrive syndrome Is this a current diagnosis for this admission?: Yes Plan: tubes may be considered to start the tube feeding well patient is not taking p.o. (9) Anemia Qualifiers: Anemia type: unspecified type Qualified Code(s): D64.9 - Anemia, unspecified Is this a current diagnosis for this admission?: Yes - Time Time Spent with patient: 25-34 minutes Medications reviewed and adjusted accordingly: Yes Anticipated discharge: Other Within: Other - Inpatient Certification Medical Necessity: Need Close Monitoring Due to Risk of Patient Decompensation, Need For IV Fluids, Need for IV Antibiotics Post Hospital Care: D/C Patent Lawyer Documentation - Plan Summary Plan Summary: We will check a CT abdomen pelvis and the head and the chest We will check a CD4 D5W at 100 cc/h Given 2 ampules of bicarbonate 1 L of the fluid Continues to daptomycin and at the p.o. vancomycin's Discussed with the sister was a power of commonwealth attorney regarding the patient's current conditions with the poor prognosis patient is currently a DNR/DNI
[2018-02-10] MEDS ORDERED: VANCOMYCIN HCL INJ 500 MG VIAL PO SCH (12:00)
--- NOTE | 2018-02-10 12:01 | RADIOLOGY REPORT (SQ) ---
EXAM DESCRIPTION: CT CHEST WITHOUT; CT ABD/PELVIS NO ORAL OR IV COMPLETED DATE/TIME: 02/10/2018 10:59 am REASON FOR STUDY: Assess dyspnea COMPARISON: CT chest 11/12/2017 PET-CT 08/20/2017 TECHNIQUE: CT scan of the chest performed without intravenous contrast using helical scanning techni que. Images reviewed with lung, soft tissue and bone windows. Reconstructed coronal and sagittal MPR images reviewed. All images stored on PACS. CT scan of the abdomen and pelvis performed without intravenous contrast and withoutoral contrast usi ng helical scanning technique with dynamic intravenous contrast injection. Images reviewed with lung , soft tissue and bone windows. Reconstructed coronal and sagittal MPR images reviewed. All images stored on PACS. All CT scanners at this facility use dose modulation, iterative reconstruction, and/or weight based d osing when appropriate to reduce radiation dose to as low as reasonably achievable (ALARA). [facility]: Dose Right [facility]: CareDose [facility]: Dose Right [facility]: Teradose 4D [facility]: Smart Technologies RADIATION DOSE: CT Rad equipment meets quality standard of care and radiation dose reduction techniq ues were employed. CTDIvol: 6.1 mGy. DLP: 451 mGy-cm. mGy. LIMITATIONS: No technical limitations. FINDINGS: CHEST: AXILLAE: No adenopathy. CHEST WALL: No masses. No subcutaneous air. LUNGS: There is patchy bibasilar airspace disease in the posterior costophrenic sulci, and patchy air space disease in the anterior right and left upper lobe. This could reflect multifocal pneumonia. T race left pleural fluid. PLEURA: Trace left pleural fluid. No pneumothorax. THYROID: No masses or significant asymmetry. HILAR AND MEDIASTINAL STRUCTURES: No identified masses or abnormal nodes. AORTA AND GREAT VESSELS: No aneurysm. HEART: No pericardial effusion. HARDWARE AND LIFELINES: Right central line tip superior vena cava BONES: No significant finding. OTHER: No other significant finding. ABDOMEN AND PELVIS: LIVER: Normal size. No masses. No dilated ducts. SPLEEN: Normal size. No focal lesions. PANCREAS: No masses. No significant calcifications. No adjacent inflammation or peripancreatic flui d collections. Pancreatic duct not dilated. GALLBLADDER: No identified stones by CT criteria. No inflammatory changes to suggest cholecystitis. ADRENAL GLANDS: No significant masses or asymmetry. RIGHT KIDNEY AND URETER: There is mild right hydronephrosis and hydroureter down to the level of the bladder. Massive bladder distention worrisome for urinary retention. No right renal cysts, stones, or masses LEFT KIDNEY AND URETER: There is mild left hydronephrosis and hydroureter down to the level of the bl adder. Massive bladder distention worrisome for urinary retention. No left renal cysts, stones, or masses AORTA AND VESSELS: No aneurysm. RETROPERITONEUM: No retroperitoneal adenopathy, hemorrhage or masses. APPENDIX: Normal. LARGE AND SMALL BOWEL: Diffuse gaseous distension of colon, could reflect a colonic ileus. No dilate d small bowel loops. ABDOMINAL WALL: There is a NG tube with the tip in the gastric antrum. No ventral hernia PERITONEAL CAVITY: No free air. No free fluid. No peritoneal implants or masses. PELVIS: No mass or free fluid. Distended urinary bladder worrisome for urinary retention BONES: No significant or acute findings. OTHER: No other significant finding. IMPRESSION: Multifocal airspace disease worrisome for pneumonia Diffuse bladder distention with mild bilateral hydronephrosis and hydroureter. Findings are worrisom e for urinary retention Right permanent central line tip superior vena cava. G tube tip in the gastric antrum NORMAL CT OF THE ABDOMEN AND PELVIS WITHOUT INTRAVENOUS CONTRAST. TECHNICAL DOCUMENTATION: JOB ID: [id number] Quality ID # [id number]: Final reports with documentation of one or more dose reduction techniques (e.g., Au tomated exposure control, adjustment of the mA and/or kV according to patient size, use of iterative reconstruction technique) 2010 [employer]- All Rights Reserved Reading location - IP/workstation name: [email or web address] SURGEONNallelyUNC HEALTH BL[facility] [email or web address]
--- NOTE | 2018-02-10 12:05 | RADIOLOGY REPORT (SQ) ---
EXAM DESCRIPTION: CT HEAD WITHOUT COMPLETED DATE/TIME: 02/10/2018 10:59 am REASON FOR STUDY: abn mental status imunocompromised COMPARISON: [address] brain exams since 2011, most recently 01/30/2018 TECHNIQUE: Axial images acquired through the brain without intravenous contrast. Images reviewed wi th bone, brain and subdural windows. Images stored on PACS. All CT scanners at this facility use dose modulation, iterative reconstruction, and/or weight based d osing when appropriate to reduce radiation dose to as low as reasonably achievable (ALARA). [facility]: Dose Right [facility]: CareDose [facility]: Dose Right [facility]: Teradose 4D [facility]: [employer] RADIATION DOSE: CT Rad equipment meets quality standard of care and radiation dose reduction techniq ues were employed. CTDIvol: 64.6 - 67.0 mGy. DLP: 2479 mGy-cm. mGy. LIMITATIONS: Motion artifact throughout the study FINDINGS: On images without motion artifact, there is no CT evidence of large territory acute ischem ic change, acute intracranial hemorrhage, mass effect, or midline shift. Multiple old infarcts are present in the left cerebellar hemisphere, left benito, and right posterior t emporoparietal region. Moderate bifrontal and biparietal small vessel ischemic change in the hemisph navdeep white matter. Old lacunar infarct lateral left basal ganglia. No acute bony changes. IMPRESSION: No acute intracranial findings. Motion artifact EVIDENCE OF ACUTE STROKE: No COMMENT: Quality ID # [id number]: Final reports with documentation of one or more dose reduction techniques (e.g., Automated exposure control, adjustment of the mA and/or kV according to patient size, use of iterative reconstruction technique) TECHNICAL DOCUMENTATION: JOB ID: [id number] [employer]- All Rights Reserved Reading location - IP/workstation name: [email or web address]
[2018-02-10] MEDS ORDERED: DEXTROSE 5%-WATER 1000 ML 1,000 ML with SODIUM BICARBONATE 100 MEQ IV PRN ×2 (14:00)
--- NOTE | 2018-02-10 14:00 | PDOC CONSULTATION ---
Consultation Consult Date: 02/10/18 Attending physician:: VIC POOLE Consult reason:: evaluate PEG tube for use History of Present Illness Admission Date/PCP: 01/30/18 13:43 GE HOLMAN MD History of Present Illness: RAE MONTEMAYOR is a 57 year old male with HIV disease, head and neck cancer status post radiation therapy and chemotherapy, presently a resident of [facility] undergoing rehabilitation, he was transferred from the [facility] to the emergency room for evaluation of high fever,Temperature 103 and altered mental status. He had a PEG tube placed here by the surgical team 4 months ago; apparently the tube has not been used since then and now needs to be used. I have been consulted to evaluate the PEG tube for use. Past Medical History Cardiac Medical History: Reports: Coronary Artery Disease, Hyperlipidema, Hypertension Denies: Myocardial Infarction Pulmonary Medical History: Reports: Pneumonia Denies: Asthma, Bronchitis, Chronic Obstructive Pulmonary Disease (COPD), Tuberculosis Neurological Medical History: Reports: Ischemic CVA, Seizures - LAST ONE 3 WEEKS Endocrine Medical History: Reports: Diabetes Mellitus Type 2 GI Medical History: Reports: Hepatitis - HEP C,HIV+ Denies: Hiatal Hernia Musculoskeltal Medical History: Reports: Arthritis Psychiatric Medical History: Denies: Depression Infectious Medical History: Reports: HIV Past Surgical History Past Surgical History: Reports: Cardiac Catheterization, Coronary Stent, Orthopedic Surgery - lumbar surgery, Other - peg Denies: Pacemaker Social History Lives with: Detention Smoking Status: Former Smoker Frequency of Alcohol Use: None Hx Recreational Drug Use: No - former drug user Drugs: None Hx Prescription Drug Abuse: No - Advance Directive Resuscitation Status: Full Code Family History Family History: Reviewed & Not Pertinent Parental Family History Reviewed: No Children Family History Reviewed: Unknown Sibling(s) Family History Reviewed.: Unknown Medication/Allergy Home Medications: Amlodipine Besylate [Norvasc 10 mg Tablet] 10 mg PO DAILY 01/30/18 Atorvastatin Calcium [Lipitor 10 mg Tablet] 10 mg PO QHS 01/30/18 Gabapentin [Neurontin] 800 mg PO Q12 01/30/18 Insulin Lispro [Humalog Insulin 100 Unit/1 ml 3 ml Vial] 0 unit SUBCUT .SLD SCALE 01/30/18 Ketoconazole [Nizoral 2% Shampoo 120 Ml Bottle] 1 applic TP MOTH@1000 01/30/18 Levetiracetam [Keppra 500 mg Tablet] 500 mg PO Q12 01/30/18 Levocetirizine Dihydrochloride [Xyzal] 5 mg PO DAILY 01/30/18 Lorazepam [Ativan 0.5 mg Tablet] 0.5 mg PO Q8HP PRN 01/30/18 Metformin HCl [Glucophage] 1,000 mg PO BIDBS 01/30/18 Metoprolol Succinate [Toprol XL 100 mg Tablet] 150 mg PO DAILY 01/30/18 Nystatin/Dexameth/Diphen [Magic Mouthwash (Omh Formula) Susp] 5 ml PO Q4HP PRN 01/30/18 Ondansetron HCl [Zofran 8 mg Tablet] 8 mg PO Q8HP PRN 01/30/18 Paroxetine HCl [Paxil 20 mg Tablet] 20 mg PO DAILY 01/30/18 Prochlorperazine Maleate [Compazine 10 mg Tablet] 10 mg PO Q6HP PRN 01/30/18 Raltegravir Potassium [Isentress 400 mg Tablet] 400 mg PO Q12 01/30/18 Ritonavir [Norvir 100 mg Tablet] 100 mg PO DAILY 01/30/18 Valsartan [Diovan] 320 mg PO DAILY@0000 01/30/18 Zinc Oxide [Zinc Oxide 20% Ointment 28.35 gm] 1 applic TP DAILYP PRN 01/30/18 Allergies/Adverse Reactions: No Known Drug Allergies Allergy (Verified 11/08/17 12:12) olive extract [[place]] Allergy (Verified 11/08/17 12:10) Shortness of Breath Review of Systems ROS unobtainable: Due to mental status Physical Exam Vital Signs: Temp Pulse Resp BP Pulse Ox 98.8 F 68 18 132/80 H 90 L 02/10/18 08:20 02/10/18 08:20 02/10/18 08:20 02/10/18 08:20 02/10/18 08:20 Intake & Output 02/09/18 02/10/18 02/11/18 06:59 06:59 06:59 Intake Total 2940 2702 Balance 2940 2702 Weight 65.5 kg 63.6 kg General appearance: PRESENT: thin Head exam: PRESENT: atraumatic Eye exam: PRESENT: conjunctiva pink Respiratory exam: PRESENT: clear to auscultation melba Cardiovascular exam: PRESENT: +S1, +S2 GI/Abdominal exam: PRESENT: normal bowel sounds, soft, other - PEG tube in LUQ; site appears clean, no drainage or erythema. Tube is at 4cm maricarmen on skin Neurological exam: PRESENT: altered, other - no speech, makes sounds and moves upper extremities - localizing pain. Results Laboratory Results: 02/10/18 04:55 02/10/18 04:55 02/09/18 02/09/18 02/10/18 18:40 19:50 04:55 WBC 15.2 H RBC 2.84 L Hgb 8.7 L Hct 26.8 L MCV 94 MCH 30.5 MCHC 32.4 RDW 18.9 H Plt Count 100 L Seg Neutrophils % 85.6 H Lymphocytes % 8.9 L Monocytes % 4.7 Eosinophils % 0.6 Basophils % 0.2 Absolute Neutrophils 13.0 H Absolute Lymphocytes 1.3 Absolute Monocytes 0.7 Absolute Eosinophils 0.1 Absolute Basophils 0.0 Carbonic Acid 0.60 L HCO3/H2CO3 Ratio 20:1 ABG pH 7.40 ABG pCO2 20.0 L* ABG pO2 85.5 ABG HCO3 12.1 L ABG O2 Saturation 96.8 ABG Base Excess -11.8 FiO2 2L Sodium 155.8 H Potassium 3.5 L Chloride 132 H Carbon Dioxide 12 L Anion Gap 12 BUN 3 L Creatinine 1.64 H Est GFR ( Amer) 52 L Est GFR (Non-Af Amer) 43 L Glucose 133 H Calcium 10.4 H Total Bilirubin AST ALT Alkaline Phosphatase Total Protein Albumin 02/10/18 04:55 WBC RBC Hgb Hct MCV MCH MCHC RDW Plt Count Seg Neutrophils % Lymphocytes % Monocytes % Eosinophils % Basophils % Absolute Neutrophils Absolute Lymphocytes Absolute Monocytes Absolute Eosinophils Absolute Basophils Carbonic Acid HCO3/H2CO3 Ratio ABG pH ABG pCO2 ABG pO2 ABG HCO3 ABG O2 Saturation ABG Base Excess FiO2 Sodium 157.1 H Potassium 3.4 L Chloride 135 H Carbon Dioxide 11 L Anion Gap 11 BUN 5 L Creatinine 1.83 H Est GFR ( Amer) 46 L Est GFR (Non-Af Amer) 38 L Glucose 157 H Calcium 10.2 Total Bilirubin 0.6 AST 15 L ALT 23 Alkaline Phosphatase 78 Total Protein 6.3 Albumin 2.4 L 01/30/18 01/30/18 01/30/18 16:05 16:05 16:05 Creatine Kinase 277 H CK-MB (CK-2) 3.87 Troponin I 0.014 NT-Pro-B Natriuret Pep 1940 H 01/31/18 01/31/18 01/31/18 00:10 05:07 05:07 Creatine Kinase 767 H CK-MB (CK-2) 4.59 H 5.33 H Troponin I 0.016 0.013 NT-Pro-B Natriuret Pep Impressions: Chest X-Ray 02/09/18 00:00 IMPRESSION: NO ACUTE RADIOGRAPHIC FINDING IN THE CHEST. NO SIGNIFICANT CHANGE FROM PRIOR STUDY. Abdomen/Pelvis CT 02/10/18 00:00 IMPRESSION: Multifocal airspace disease worrisome for pneumonia Diffuse bladder distention with mild bilateral hydronephrosis and hydroureter. Findings are worrisome for urinary retention Right permanent central line tip superior vena cava. G tube tip in the gastric antrum NORMAL CT OF THE ABDOMEN AND PELVIS WITHOUT INTRAVENOUS CONTRAST. Chest CT 02/10/18 00:00 IMPRESSION: Multifocal airspace disease worrisome for pneumonia Diffuse bladder distention with mild bilateral hydronephrosis and hydroureter. Findings are worrisome for urinary retention Right permanent central line tip superior vena cava. G tube tip in the gastric antrum NORMAL CT OF THE ABDOMEN AND PELVIS WITHOUT INTRAVENOUS CONTRAST. Head CT 02/10/18 00:00 IMPRESSION: No acute intracranial findings. Motion artifact EVIDENCE OF ACUTE STROKE: No Assessment & Plan - Diagnosis (1) PEG (percutaneous endoscopic gastrostomy) status Is this a current diagnosis for this admission?: Yes (2) HIV (human immunodeficiency virus infection) Is this a current diagnosis for this admission?: Yes (3) Head and neck cancer Is this a current diagnosis for this admission?: Yes (4) Sepsis Qualifiers: Sepsis type: sepsis due to unspecified organism Qualified Code(s): A41.9 - Sepsis, unspecified organism Is this a current diagnosis for this admission?: Yes - Plan Summary Plan Summary: The PEG tube was flushed easily with water. Ok to use the PEG tube.
[2018-02-10] MEDS: METRONIDAZOLE 500 MG/NS RTU 100 ML IV SCH ×3 (14:36→23:56)
[2018-02-10] MEDS ORDERED: AMPICILLIN SODIUM 1 GM in NORMAL SALINE 50 ML IV SCH (15:00)
[2018-02-10] MEDS: VANCOMYCIN HCL INJ 500 MG VIAL PO SCH ×2 (18:03→23:56)
[2018-02-10] MEDS: MUPIROCIN 2% OINTMENT 22 GM TP SCH (18:04)
[2018-02-10] MEDS: SULFAMETHOXAZOLE/TRIMETHOPRIM 800-160 MG TABLET PO SCH (18:20)
[2018-02-10] MEDS: POTASSIUM CHLORIDE 10 MEQ TABLET.SA PO SCH (21:52)
[2018-02-10] MEDS: PAROXETINE HCL 20 MG TABLET PO SCH (21:52)
[2018-02-10] MEDS: DEXTROSE 50%-WATER SYRINGE 12.5 GM/25 ML DOSE IV PRN (21:58)
[2018-02-11] MEDS ORDERED: DEXTROSE 5%-WATER 1000 ML 1,000 ML IV PRN (04:21)
[2018-02-11 05:22] LABS: ABSOLUTE EOSINOPHILS # (AUTO) 0.2 10^3/uL (0.0-0.6); ABSOLUTE MONOCYTES (AUTO) 0.5 10^3/uL (0.1-1.4); ABSOLUTE NEUT (AUTO) 11.8 10^3/uL (1.7-8.2); BASOPHILS % (AUTO) 0.3 % (0-2); EOSINOPHILS % (AUTO) 1.3 % (0-6); HEMATOCRIT 27.3 % (37.9-51.0); LYMPHOCYTES % (AUTO) 7.3 % (13-45); MEAN CORPUSCULAR HEMOGLOBIN 30.7 pg (27.0-33.4); MEAN CORPUSCULAR HGB CONC 32.9 g/dL (32.0-36.0); MEAN CORPUSCULAR VOLUME 93 fl (80-97); RED BLOOD COUNT 2.93 10^6/uL (4.35-5.55); RED CELL DISTRIBUTION WIDTH 18.1 % (11.5-14.0); SEGMENTED NEUTROPHILS % (AUTO) 87.1 % (42-78); TOTAL CELLS COUNTED % (AUTO) 100 %; WHITE BLOOD COUNT 13.6 10^3/uL (4.0-10.5)
[2018-02-11 05:29] LABS: ALANINE AMINOTRANSFERASE 20 U/L (21-72); ALBUMIN 2.5 g/dL (3.5-5.0); ALKALINE PHOSPHATASE 81 U/L (38-126); ANION GAP 13 (5-19); ASPARTATE AMINO TRANSFERASE 13 U/L (17-59); BILIRUBIN,DIRECT 0.5 mg/dL (0.0-0.4); BILIRUBIN,TOTAL 0.5 mg/dL (0.2-1.3); BLOOD UREA NITROGEN 8 mg/dL (7-20); CALCIUM 10.1 mg/dL (8.4-10.2); CARBON DIOXIDE 17 mmol/L (22-30); CHLORIDE 132 mmol/L (98-107); GLUCOSE 85 mg/dL (75-110); SODIUM 161.8 mmol/L (137-145)
[2018-02-11 05:30] LABS: TOTAL PROTEIN 6.4 g/dL (6.3-8.2)
[2018-02-11 05:33] LABS: POTASSIUM 2.6 mmol/L (3.6-5.0)
[2018-02-11] MEDS ORDERED: POTASSIUM CHLORIDE 10 MEQ TABLET.SA PO ONE (05:36)
[2018-02-11 05:56] LABS: PLATELET COUNT 84 10^3/uL (150-450)
[2018-02-11] MEDS: POTASSI CL 20 MEQ/50 ML RIDER 20 MEQ/50 ML RTUPB IV SCH ×2 (06:05→08:25)
[2018-02-11] MEDS: DEXTROSE 50%-WATER SYRINGE 25 GM/50 ML DOSE IV PRN ×3 (06:07→22:49)
[2018-02-11] MEDS: SODIUM BICARBONATE 650 MG TABLET PO SCH ×3 (06:07→21:52)
[2018-02-11] MEDS: METRONIDAZOLE 500 MG/NS RTU 100 ML IV SCH ×3 (06:07→17:17)
[2018-02-11] MEDS: VANCOMYCIN HCL INJ 500 MG VIAL PO SCH ×3 (06:15→18:57)
--- NOTE | 2018-02-11 06:17 | PDOC PROGRESS REPORT ---
Subjective Progress Note for:: 02/11/18 Subjective:: pt is currently doing much better Patient's patient is much alert awake Sodium is still 161 Patient's potassium is 2.6 Patient still have a very loose stool Patient CT of the chest so some pneumonia and currently on antibiotics with p.o. vancomycin and IV Flagyl because switched to the p.o. Flagyl while the patient PEG tube is working Reason For Visit: SEPSIS Physical Exam Vital Signs: Temp Pulse Resp BP Pulse Ox 98.1 F 101 H 20 121/81 100 02/11/18 04:48 02/11/18 01:29 02/11/18 04:48 02/11/18 04:48 02/11/18 01:29 Intake & Output 02/09/18 02/10/18 02/11/18 06:59 06:59 06:59 Intake Total 2940 2702 1975 Output Total 2650 Balance 2940 2702 -675 Weight 65.5 kg 63.6 kg 59.5 kg General appearance: PRESENT: no acute distress, well-developed, well-nourished Head exam: PRESENT: atraumatic, normocephalic Eye exam: PRESENT: conjunctiva pink, EOMI, PERRLA. ABSENT: scleral icterus Ear exam: PRESENT: normal external ear exam Mouth exam: PRESENT: moist, tongue midline Neck exam: PRESENT: full ROM. ABSENT: carotid bruit, JVD, lymphadenopathy, thyromegaly Respiratory exam: PRESENT: clear to auscultation melba Cardiovascular exam: PRESENT: RRR. ABSENT: diastolic murmur, rubs, systolic murmur Pulses: PRESENT: normal dorsalis pedis pul, +2 pedal pulses bilateral Vascular exam: PRESENT: normal capillary refill GI/Abdominal exam: PRESENT: normal bowel sounds, soft. ABSENT: distended, guarding, mass, organolmegaly, rebound, tenderness Additonal comments: PEG tube is present Rectal exam: PRESENT: deferred Extremities exam: ABSENT: pedal edema Neurological exam: PRESENT: alert, awake, oriented to person, oriented to place , oriented to time, oriented to situation, CN II-XII grossly intact. ABSENT: motor sensory deficit Psychiatric exam: PRESENT: appropriate affect, normal mood. ABSENT: homicidal ideation, suicidal ideation Skin exam: PRESENT: dry, intact, warm. ABSENT: cyanosis, rash Results Laboratory Results: 02/11/18 04:15 02/11/18 04:15 02/11/18 02/11/18 04:15 04:15 WBC 13.6 H RBC 2.93 L Hgb 9.0 L Hct 27.3 L MCV 93 MCH 30.7 MCHC 32.9 RDW 18.1 H Plt Count 84 L Seg Neutrophils % 87.1 H Lymphocytes % 7.3 L Monocytes % 4.0 Eosinophils % 1.3 Basophils % 0.3 Absolute Neutrophils 11.8 H Absolute Lymphocytes 1.0 Absolute Monocytes 0.5 Absolute Eosinophils 0.2 Absolute Basophils 0.0 Sodium 161.8 H Potassium 2.6 L* Chloride 132 H Carbon Dioxide 17 L Anion Gap 13 BUN 8 Creatinine 1.39 H Est GFR ( Amer) > 60 Est GFR (Non-Af Amer) 52 L Glucose 85 Calcium 10.1 Total Bilirubin 0.5 AST 13 L ALT 20 L Alkaline Phosphatase 81 Total Protein 6.4 Albumin 2.5 L 01/30/18 01/30/18 01/30/18 16:05 16:05 16:05 Creatine Kinase 277 H CK-MB (CK-2) 3.87 Troponin I 0.014 NT-Pro-B Natriuret Pep 1940 H 01/31/18 01/31/18 01/31/18 00:10 05:07 05:07 Creatine Kinase 767 H CK-MB (CK-2) 4.59 H 5.33 H Troponin I 0.016 0.013 NT-Pro-B Natriuret Pep Impressions: Chest X-Ray 02/09/18 00:00 IMPRESSION: NO ACUTE RADIOGRAPHIC FINDING IN THE CHEST. NO SIGNIFICANT CHANGE FROM PRIOR STUDY. Abdomen/Pelvis CT 02/10/18 00:00 IMPRESSION: Multifocal airspace disease worrisome for pneumonia Diffuse bladder distention with mild bilateral hydronephrosis and hydroureter. Findings are worrisome for urinary retention Right permanent central line tip superior vena cava. G tube tip in the gastric antrum NORMAL CT OF THE ABDOMEN AND PELVIS WITHOUT INTRAVENOUS CONTRAST. Chest CT 02/10/18 00:00 IMPRESSION: Multifocal airspace disease worrisome for pneumonia Diffuse bladder distention with mild bilateral hydronephrosis and hydroureter. Findings are worrisome for urinary retention Right permanent central line tip superior vena cava. G tube tip in the gastric antrum NORMAL CT OF THE ABDOMEN AND PELVIS WITHOUT INTRAVENOUS CONTRAST. Head CT 02/10/18 00:00 IMPRESSION: No acute intracranial findings. Motion artifact EVIDENCE OF ACUTE STROKE: No Assessment & Plan - Diagnosis (1) Acute renal failure Qualifiers: Acute renal failure type: unspecified Qualified Code(s): N17.9 - Acute kidney failure, unspecified Is this a current diagnosis for this admission?: Yes Plan: Continues to IV fluid is all improving (2) Clostridium difficile diarrhea Is this a current diagnosis for this admission?: Yes Plan: Continues to p.o. vancomycin's while the Flagyl is not working will still continues to Flagyl (3) Enterococcus faecalis infection Is this a current diagnosis for this admission?: Yes Plan: continue. daptomycin's will wait for the blood culture (4) HIV (human immunodeficiency virus infection) Is this a current diagnosis for this admission?: Yes Plan: We will check a CD4 count (5) Hypernatremia Is this a current diagnosis for this admission?: Yes Plan: cont to D5W Nephrology consult (6) Hypokalemia Is this a current diagnosis for this admission?: Yes Plan: replace potassium (7) Metabolic encephalopathy Is this a current diagnosis for this admission?: Yes Plan: Replace the potassium (8) Adult failure to thrive syndrome Is this a current diagnosis for this admission?: Yes Plan: We will probably start the tube feeding (9) Anemia Qualifiers: Anemia type: unspecified type Qualified Code(s): D64.9 - Anemia, unspecified Is this a current diagnosis for this admission?: Yes Plan: All stable - Time Time Spent with patient: 15-24 minutes Medications reviewed and adjusted accordingly: Yes Anticipated discharge: Other Within: Other - Inpatient Certification Medical Necessity: Need Close Monitoring Due to Risk of Patient Decompensation, Need For IV Fluids, Need for IV Antibiotics Post Hospital Care: D/C Detasseler Documentation - Plan Summary Plan Summary: Continues current medication and adjust IV fluid
[2018-02-11] MEDS ORDERED: POTASSI CL 40 MEQ/D5-1/2NS 1L 1000 ML IV PRN (08:16)
[2018-02-11] MEDS ORDERED: DEXTROSE 5%-WATER 1000 ML 1,000 ML with POTASSIUM CHLORIDE 40 MEQ IV PRN ×2 (09:30)
[2018-02-11] MEDS: DILTIAZEM HCL 180 MG CAPSULE.CR PO SCH ×2 (11:04→21:52)
[2018-02-11] MEDS: SULFAMETHOXAZOLE/TRIMETHOPRIM 800-160 MG TABLET PO SCH ×2 (11:18→17:16)
[2018-02-11] MEDS: RITONAVIR 100 MG TABLET PO SCH (11:18)
[2018-02-11] MEDS: MUPIROCIN 2% OINTMENT 22 GM TP SCH ×2 (11:19→17:17)
[2018-02-11] MEDS: MEGESTROL ACETATE SUSP 400 MG/10 ML UDCUP PO SCH (11:19)
[2018-02-11] MEDS: RALTEGRAVIR POTASSIUM 400 MG TABLET PO SCH ×2 (11:19→21:52)
[2018-02-11] MEDS: DAPTOMYCIN 500 MG in NORMAL SALINE 50 ML IV SCH (11:20)
[2018-02-11] MEDS ORDERED: POTASSIUM CHLORIDE IV PRN ×2 (16:02)
[2018-02-11] MEDS ORDERED: WATER IV PRN ×2 (16:02)
[2018-02-11] MEDS ORDERED: DEXTROSE 10% IV PRN ×2 (16:02)
[2018-02-11] MEDS: POTASSIUM CHLORIDE 20 MEQ/15 ML UDCUP PO SCH (21:52)
[2018-02-11] MEDS: DEXTROSE 5%-WATER 1000 ML 1,000 ML IV PRN (21:52)
[2018-02-11] MEDS: PAROXETINE HCL 20 MG TABLET PO SCH (21:52)
[2018-02-11] MEDS ORDERED: DEXTROSE 50%-WATER 25 GM/50 ML DISP.SYRIN IV ONE (22:47)
[2018-02-12] MEDS: DEXTROSE 50%-WATER SYRINGE 25 GM/50 ML DOSE IV PRN (04:16)
[2018-02-12] MEDS: HALOPERIDOL LACTATE INJ 5 MG/1 ML VIAL IV PRN (04:41)
[2018-02-12] MEDS: METRONIDAZOLE 500 MG/NS RTU 100 ML IV SCH ×3 (04:41→17:42)
[2018-02-12] MEDS: METOPROLOL TARTRATE PF/INJ 5 MG/5 ML SDV IV PRN ×3 (04:41→23:43)
[2018-02-12] MEDS: SODIUM BICARBONATE 650 MG TABLET PO SCH ×2 (05:40→13:48)
[2018-02-12] MEDS: DEXTROSE 5%-WATER 1000 ML 1,000 ML IV PRN (07:52)
[2018-02-12] MEDS: VANCOMYCIN HCL INJ 500 MG VIAL PO SCH ×3 (07:55→17:42)
[2018-02-12 09:23] LABS: ABSOLUTE EOSINOPHILS # (AUTO) 0.1 10^3/uL (0.0-0.6); ABSOLUTE LYMPHOCYTES (AUTO) 0.9 10^3/uL (0.5-4.7); ABSOLUTE MONOCYTES (AUTO) 0.4 10^3/uL (0.1-1.4); ABSOLUTE NEUT (AUTO) 7.2 10^3/uL (1.7-8.2); BASOPHILS % (AUTO) 0.3 % (0-2); EOSINOPHILS % (AUTO) 1.2 % (0-6); HEMATOCRIT 26.5 % (37.9-51.0); HEMOGLOBIN 8.7 g/dL (13.5-17.0); LYMPHOCYTES % (AUTO) 10.8 % (13-45); MEAN CORPUSCULAR VOLUME 94 fl (80-97); RED BLOOD COUNT 2.82 10^6/uL (4.35-5.55); RED CELL DISTRIBUTION WIDTH 18.9 % (11.5-14.0); SEGMENTED NEUTROPHILS % (AUTO) 82.7 % (42-78); TOTAL CELLS COUNTED % (AUTO) 100 %; WHITE BLOOD COUNT 8.7 10^3/uL (4.0-10.5)
[2018-02-12 09:37] LABS: ALANINE AMINOTRANSFERASE 17 U/L (21-72); ALBUMIN 2.4 g/dL (3.5-5.0); ALKALINE PHOSPHATASE 81 U/L (38-126); ANION GAP 10 (5-19); ASPARTATE AMINO TRANSFERASE 21 U/L (17-59); BILIRUBIN,DIRECT 0.5 mg/dL (0.0-0.4); BILIRUBIN,TOTAL 0.5 mg/dL (0.2-1.3); BLOOD UREA NITROGEN 9 mg/dL (7-20); CALCIUM 9.6 mg/dL (8.4-10.2); CARBON DIOXIDE 15 mmol/L (22-30); CHLORIDE 135 mmol/L (98-107); GLUCOSE 78 mg/dL (75-110); SODIUM 159.8 mmol/L (137-145); TOTAL PROTEIN 6.4 g/dL (6.3-8.2)
[2018-02-12 09:42] LABS: POTASSIUM 2.9 mmol/L (3.6-5.0)
[2018-02-12 09:56] LABS: PLATELET COUNT 75 10^3/uL (150-450)
[2018-02-12] MEDS: POTASSIUM CHLORIDE 20 MEQ/50 ML RTU IV SCH ×3 (12:36→16:34)
[2018-02-12] MEDS: MEGESTROL ACETATE SUSP 400 MG/10 ML UDCUP PO SCH (12:36)
[2018-02-12] MEDS: DILTIAZEM HCL 180 MG CAPSULE.CR PO SCH ×2 (12:36→22:50)
[2018-02-12] MEDS: DEXTROSE 5%-WATER 1000 ML 1,000 ML with POTASSIUM CHLORIDE 40 MEQ IV PRN ×2 (12:36)
[2018-02-12] MEDS: SULFAMETHOXAZOLE/TRIMETHOPRIM 800-160 MG TABLET PO SCH (12:36)
[2018-02-12] MEDS: RALTEGRAVIR POTASSIUM 400 MG TABLET PO SCH ×2 (12:45→22:50)
[2018-02-12] MEDS: RITONAVIR 100 MG TABLET PO SCH (12:45)
[2018-02-12] MEDS: DAPTOMYCIN 500 MG in NORMAL SALINE 50 ML IV SCH (12:47)
[2018-02-12] MEDS: MUPIROCIN 2% OINTMENT 22 GM TP SCH ×2 (13:43→17:43)
[2018-02-12] MEDS ORDERED: VANCOMYCIN HCL 0 MG in DEXTROSE 5%-WATER 250 ML IV NR (16:45)
--- NOTE | 2018-02-12 17:03 | PDOC PROGRESS REPORT ---
Subjective Progress Note for:: 02/12/18 Subjective:: Patient seen by the bedside, over the weekend CT chest was done, it showed patchy bibasilar airspace disease in the posterior costophrenic sulci and patchy airspace disease in the anterior right and left upper lobe these represent multifocal pneumonia. He also have severe C. difficile colitis, E faecalis septicemia. Over the weekend he was started on daptomycin for the E faecalis, he also have hospital-acquired pneumonia, vancomycin is preferred agent this will cover both hospital acquired MRSA and also E faecalis, daptomycin does not penetrate the lung parenchyma effectively well. He also needs gram-negative coverage with cefepime will continue p.o. vancomycin and p.o. Flagyl for the severe C. difficile Reason For Visit: SEPSIS Physical Exam Vital Signs: Temp Pulse Resp BP Pulse Ox 98.3 F 93 18 105/65 81 L 02/12/18 11:09 02/12/18 14:00 02/12/18 11:09 02/12/18 11:09 02/12/18 11:09 Intake & Output 02/11/18 02/12/18 02/13/18 06:59 06:59 06:59 Intake Total 4341 1660 Output Total 3350 3800 Balance 991 -2140 Weight 59.5 kg 59.2 kg General appearance: PRESENT: no acute distress Eye exam: PRESENT: PERRLA Teeth exam: PRESENT: other - Poor oral hygiene Respiratory exam: PRESENT: rhonchi Cardiovascular exam: PRESENT: +S1, +S2 GI/Abdominal exam: PRESENT: soft Neurological exam: PRESENT: alert Results Laboratory Results: 02/12/18 08:59 02/12/18 02/12/18 08:59 08:59 WBC 8.7 RBC 2.82 L Hgb 8.7 L Hct 26.5 L MCV 94 MCH 31.0 MCHC 33.0 RDW 18.9 H Plt Count 75 L Seg Neutrophils % 82.7 H Lymphocytes % 10.8 L Monocytes % 5.0 Eosinophils % 1.2 Basophils % 0.3 Absolute Neutrophils 7.2 Absolute Lymphocytes 0.9 Absolute Monocytes 0.4 Absolute Eosinophils 0.1 Absolute Basophils 0.0 Sodium 159.8 H Potassium 2.9 L* Chloride 135 H Carbon Dioxide 15 L Anion Gap 10 BUN 9 Creatinine 1.34 H Est GFR ( Amer) > 60 Est GFR (Non-Af Amer) 55 L Glucose 78 Calcium 9.6 Total Bilirubin 0.5 AST 21 ALT 17 L Alkaline Phosphatase 81 Total Protein 6.4 Albumin 2.4 L 01/30/18 01/30/18 01/30/18 16:05 16:05 16:05 Creatine Kinase 277 H CK-MB (CK-2) 3.87 Troponin I 0.014 NT-Pro-B Natriuret Pep 1940 H 01/31/18 01/31/18 01/31/18 00:10 05:07 05:07 Creatine Kinase 767 H CK-MB (CK-2) 4.59 H 5.33 H Troponin I 0.016 0.013 NT-Pro-B Natriuret Pep Impressions: Chest X-Ray 02/09/18 00:00 IMPRESSION: NO ACUTE RADIOGRAPHIC FINDING IN THE CHEST. NO SIGNIFICANT CHANGE FROM PRIOR STUDY. Abdomen/Pelvis CT 02/10/18 00:00 IMPRESSION: Multifocal airspace disease worrisome for pneumonia Diffuse bladder distention with mild bilateral hydronephrosis and hydroureter. Findings are worrisome for urinary retention Right permanent central line tip superior vena cava. G tube tip in the gastric antrum NORMAL CT OF THE ABDOMEN AND PELVIS WITHOUT INTRAVENOUS CONTRAST. Chest CT 02/10/18 00:00 IMPRESSION: Multifocal airspace disease worrisome for pneumonia Diffuse bladder distention with mild bilateral hydronephrosis and hydroureter. Findings are worrisome for urinary retention Right permanent central line tip superior vena cava. G tube tip in the gastric antrum NORMAL CT OF THE ABDOMEN AND PELVIS WITHOUT INTRAVENOUS CONTRAST. Head CT 02/10/18 00:00 IMPRESSION: No acute intracranial findings. Motion artifact EVIDENCE OF ACUTE STROKE: No Assessment & Plan - Diagnosis (1) Septic shock Is this a current diagnosis for this admission?: Yes (2) Hypotension Qualifiers: Hypotension type: unspecified hypotension type Qualified Code(s): I95.9 - Hypotension, unspecified Is this a current diagnosis for this admission?: Yes (3) Urinary tract infection Qualifiers: Urinary tract infection type: site unspecified Hematuria presence: without hematuria Qualified Code(s): N39.0 - Urinary tract infection, site not specified Is this a current diagnosis for this admission?: Yes (4) Metabolic encephalopathy Is this a current diagnosis for this admission?: Yes (5) HIV (human immunodeficiency virus infection) Is this a current diagnosis for this admission?: Yes (6) Atrial fibrillation with RVR Is this a current diagnosis for this admission?: Yes (7) Gram positive septicemia Is this a current diagnosis for this admission?: Yes (8) UTI (urinary tract infection) due to Enterococcus Is this a current diagnosis for this admission?: Yes (9) Enterococcus faecalis infection Is this a current diagnosis for this admission?: Yes (10) Clostridium difficile diarrhea Is this a current diagnosis for this admission?: Yes (11) Hypokalemia Is this a current diagnosis for this admission?: Yes (12) Anemia Qualifiers: Anemia type: unspecified type Qualified Code(s): D64.9 - Anemia, unspecified Is this a current diagnosis for this admission?: Yes (13) Hypernatremia Is this a current diagnosis for this admission?: Yes (14) Multifocal pneumonia Is this a current diagnosis for this admission?: Yes Plan: Discontinue daptomycin, start vancomycin district cover MRSA, Enterococcus faecalis, daptomycin is not a good choice for MRSA pneumonia, also start cefepime to cover gram-negative organisms (15) Acute kidney injury Is this a current diagnosis for this admission?: Yes (16) Normal anion gap metabolic acidosis Is this a current diagnosis for this admission?: Yes (17) Hypernatremia Is this a current diagnosis for this admission?: Yes Plan: Continue 5% dextrose and start tube feeds (18) Dehydration Is this a current diagnosis for this admission?: Yes
[2018-02-12 17:06] LABS: ALANINE AMINOTRANSFERASE 15 U/L (21-72); ALBUMIN 2.4 g/dL (3.5-5.0); ALKALINE PHOSPHATASE 76 U/L (38-126); ANION GAP 13 (5-19); ASPARTATE AMINO TRANSFERASE 21 U/L (17-59); BILIRUBIN,DIRECT 0.4 mg/dL (0.0-0.4); BILIRUBIN,TOTAL 0.4 mg/dL (0.2-1.3); BLOOD UREA NITROGEN 10 mg/dL (7-20); CALCIUM 9.4 mg/dL (8.4-10.2); CARBON DIOXIDE 15 mmol/L (22-30); CHLORIDE 129 mmol/L (98-107); GLUCOSE 130 mg/dL (75-110); POTASSIUM 3.6 mmol/L (3.6-5.0); SODIUM 156.5 mmol/L (137-145); TOTAL PROTEIN 6.2 g/dL (6.3-8.2)
[2018-02-12] MEDS: CEFEPIME 1 GM/D5W RTU 1 GM/50 ML RTUPB IV SCH (17:42)
[2018-02-12] MEDS: VANCOMYCIN HCL 1,000 MG in DEXTROSE 5%-WATER 250 ML IV SCH (20:51)
[2018-02-12] MEDS: POTASSIUM CHLORIDE 20 MEQ/15 ML UDCUP PO SCH (22:49)
[2018-02-12] MEDS: PAROXETINE HCL 20 MG TABLET PO SCH (22:50)
[2018-02-12] MEDS ORDERED: DEXTROSE 40% GEL 15 GM TUBE PEG PRN (23:39)
[2018-02-12] MEDS ORDERED: ACETAMINOPHEN 325 MG TABLET PEG PRN (23:39)
[2018-02-12] MEDS ORDERED: DEXTROSE 40% GEL 15 GM TUBE X 2 PEG PRN (23:40)
[2018-02-12] MEDS ORDERED: DILTIAZEM HCL 60 MG TABLET PEG ONE (23:45)
[2018-02-13] MEDS: METRONIDAZOLE 500 MG/NS RTU 100 ML IV SCH ×4 (00:51→18:05)
[2018-02-13] MEDS: DILTIAZEM HCL 60 MG TABLET PEG SCH ×4 (00:51→18:17)
[2018-02-13] MEDS: VANCOMYCIN HCL INJ 500 MG VIAL PEG SCH ×4 (00:51→18:04)
[2018-02-13] MEDS: DEXTROSE 5%-WATER 1000 ML 1,000 ML with POTASSIUM CHLORIDE 40 MEQ IV PRN ×4 (02:48→13:12)
[2018-02-13 06:46] LABS: ABSOLUTE EOSINOPHILS # (AUTO) 0.1 10^3/uL (0.0-0.6); ABSOLUTE MONOCYTES (AUTO) 0.5 10^3/uL (0.1-1.4); ABSOLUTE NEUT (AUTO) 6.5 10^3/uL (1.7-8.2); BASOPHILS % (AUTO) 0.3 % (0-2); EOSINOPHILS % (AUTO) 1.4 % (0-6); HEMATOCRIT 25.5 % (37.9-51.0); HEMOGLOBIN 8.5 g/dL (13.5-17.0); LYMPHOCYTES % (AUTO) 12.8 % (13-45); MEAN CORPUSCULAR HEMOGLOBIN 31.4 pg (27.0-33.4); MEAN CORPUSCULAR HGB CONC 33.4 g/dL (32.0-36.0); MEAN CORPUSCULAR VOLUME 94 fl (80-97); MONOCYTES % (AUTO) 6.2 % (3-13); RED BLOOD COUNT 2.71 10^6/uL (4.35-5.55); RED CELL DISTRIBUTION WIDTH 18.2 % (11.5-14.0); SEGMENTED NEUTROPHILS % (AUTO) 79.3 % (42-78); TOTAL CELLS COUNTED % (AUTO) 100 %; WHITE BLOOD COUNT 8.2 10^3/uL (4.0-10.5)
[2018-02-13] MEDS: CEFEPIME 1 GM/D5W RTU 1 GM/50 ML RTUPB IV SCH ×2 (07:11→18:04)
[2018-02-13 07:19] LABS: ALANINE AMINOTRANSFERASE 18 U/L (21-72); ALBUMIN 2.4 g/dL (3.5-5.0); ALKALINE PHOSPHATASE 89 U/L (38-126); ANION GAP 12 (5-19); ASPARTATE AMINO TRANSFERASE 19 U/L (17-59); BILIRUBIN,DIRECT 0.3 mg/dL (0.0-0.4); BILIRUBIN,TOTAL 0.3 mg/dL (0.2-1.3); BLOOD UREA NITROGEN 10 mg/dL (7-20); CALCIUM 9.8 mg/dL (8.4-10.2); CARBON DIOXIDE 13 mmol/L (22-30); CHLORIDE 134 mmol/L (98-107); GLUCOSE 144 mg/dL (75-110); SODIUM 159.1 mmol/L (137-145); TOTAL PROTEIN 6.5 g/dL (6.3-8.2)
[2018-02-13 07:22] LABS: PLATELET COUNT 69 10^3/uL (150-450)
[2018-02-13] MEDS: MUPIROCIN 2% OINTMENT 22 GM TP SCH ×2 (10:36→18:05)
[2018-02-13] MEDS: RALTEGRAVIR POTASSIUM 400 MG TABLET PEG SCH ×2 (10:36→22:21)
[2018-02-13] MEDS: MEGESTROL ACETATE SUSP 400 MG/10 ML UDCUP PEG SCH (10:36)
[2018-02-13] MEDS: RITONAVIR 100 MG TABLET PEG SCH (10:36)
[2018-02-13] MEDS: PAROXETINE HCL 20 MG TABLET PEG SCH (20:07)
[2018-02-13] MEDS: VANCOMYCIN HCL 1,000 MG in DEXTROSE 5%-WATER 250 ML IV SCH (20:07)
--- NOTE | 2018-02-13 20:20 | PDOC PROGRESS REPORT ---
Subjective Progress Note for:: 02/13/18 Subjective:: Patient seen by the bedside, over the weekend CT chest was done, it showed patchy bibasilar airspace disease in the posterior costophrenic sulci and patchy airspace disease in the anterior right and left upper lobe these represent multifocal pneumonia. He also have severe C. difficile colitis, E faecalis septicemia. Over the weekend he was started on daptomycin for the E faecalis, he also have hospital-acquired pneumonia, vancomycin is preferred agent this will cover both hospital acquired MRSA and also E faecalis, daptomycin does not penetrate the lung parenchyma effectively well. He also needs gram-negative coverage with cefepime will continue p.o. vancomycin and p.o. Flagyl for the severe C. difficile, Patient endorses intermittent Lucidity and confusion presently on 5% dextrose still have severe hypernatremia partly due to ongoing dehydration from diarrhea Reason For Visit: SEPSIS Physical Exam Vital Signs: Temp Pulse Resp BP Pulse Ox 98.8 F 128 H 18 112/74 97 02/13/18 16:11 02/13/18 19:00 02/13/18 16:11 02/13/18 16:11 02/13/18 16:11 Intake & Output 02/12/18 02/13/18 02/14/18 06:59 06:59 06:59 Intake Total 1660 1640 510 Output Total 3800 1575 1800 Balance -2140 65 -1290 Weight 59.2 kg 61.1 kg General appearance: PRESENT: mild distress Eye exam: PRESENT: PERRLA Respiratory exam: PRESENT: rales Cardiovascular exam: PRESENT: +S1, +S2 GI/Abdominal exam: PRESENT: soft Neurological exam: PRESENT: alert Results Laboratory Results: 02/13/18 06:18 02/13/18 06:18 02/13/18 02/13/18 06:18 06:18 WBC 8.2 RBC 2.71 L Hgb 8.5 L Hct 25.5 L MCV 94 MCH 31.4 MCHC 33.4 RDW 18.2 H Plt Count 69 L Seg Neutrophils % 79.3 H Lymphocytes % 12.8 L Monocytes % 6.2 Eosinophils % 1.4 Basophils % 0.3 Absolute Neutrophils 6.5 Absolute Lymphocytes 1.0 Absolute Monocytes 0.5 Absolute Eosinophils 0.1 Absolute Basophils 0.0 Sodium 159.1 H Potassium 4.0 Chloride 134 H Carbon Dioxide 13 L Anion Gap 12 BUN 10 Creatinine 1.38 H Est GFR ( Amer) > 60 Est GFR (Non-Af Amer) 53 L Glucose 144 H Calcium 9.8 Total Bilirubin 0.3 AST 19 ALT 18 L Alkaline Phosphatase 89 Total Protein 6.5 Albumin 2.4 L 01/30/18 01/30/18 01/30/18 16:05 16:05 16:05 Creatine Kinase 277 H CK-MB (CK-2) 3.87 Troponin I 0.014 NT-Pro-B Natriuret Pep 1940 H 01/31/18 01/31/18 01/31/18 00:10 05:07 05:07 Creatine Kinase 767 H CK-MB (CK-2) 4.59 H 5.33 H Troponin I 0.016 0.013 NT-Pro-B Natriuret Pep Impressions: Chest X-Ray 02/09/18 00:00 IMPRESSION: NO ACUTE RADIOGRAPHIC FINDING IN THE CHEST. NO SIGNIFICANT CHANGE FROM PRIOR STUDY. Abdomen/Pelvis CT 02/10/18 00:00 IMPRESSION: Multifocal airspace disease worrisome for pneumonia Diffuse bladder distention with mild bilateral hydronephrosis and hydroureter. Findings are worrisome for urinary retention Right permanent central line tip superior vena cava. G tube tip in the gastric antrum NORMAL CT OF THE ABDOMEN AND PELVIS WITHOUT INTRAVENOUS CONTRAST. Chest CT 02/10/18 00:00 IMPRESSION: Multifocal airspace disease worrisome for pneumonia Diffuse bladder distention with mild bilateral hydronephrosis and hydroureter. Findings are worrisome for urinary retention Right permanent central line tip superior vena cava. G tube tip in the gastric antrum NORMAL CT OF THE ABDOMEN AND PELVIS WITHOUT INTRAVENOUS CONTRAST. Head CT 02/10/18 00:00 IMPRESSION: No acute intracranial findings. Motion artifact EVIDENCE OF ACUTE STROKE: No Assessment & Plan - Diagnosis (1) Septic shock Is this a current diagnosis for this admission?: Yes (2) Hypotension Qualifiers: Hypotension type: unspecified hypotension type Qualified Code(s): I95.9 - Hypotension, unspecified Is this a current diagnosis for this admission?: Yes (3) Urinary tract infection Qualifiers: Urinary tract infection type: site unspecified Hematuria presence: without hematuria Qualified Code(s): N39.0 - Urinary tract infection, site not specified Is this a current diagnosis for this admission?: Yes (4) Metabolic encephalopathy Is this a current diagnosis for this admission?: Yes (5) HIV (human immunodeficiency virus infection) Is this a current diagnosis for this admission?: Yes (6) Atrial fibrillation with RVR Is this a current diagnosis for this admission?: Yes (7) Gram positive septicemia Is this a current diagnosis for this admission?: Yes (8) UTI (urinary tract infection) due to Enterococcus Is this a current diagnosis for this admission?: Yes (9) Enterococcus faecalis infection Is this a current diagnosis for this admission?: Yes (10) Clostridium difficile diarrhea Is this a current diagnosis for this admission?: Yes (11) Hypokalemia Is this a current diagnosis for this admission?: Yes (12) Anemia Qualifiers: Anemia type: unspecified type Qualified Code(s): D64.9 - Anemia, unspecified Is this a current diagnosis for this admission?: Yes (13) Hypernatremia Is this a current diagnosis for this admission?: Yes (14) Multifocal pneumonia Is this a current diagnosis for this admission?: Yes (15) Acute kidney injury Is this a current diagnosis for this admission?: Yes (16) Normal anion gap metabolic acidosis Is this a current diagnosis for this admission?: Yes (17) Hypernatremia Is this a current diagnosis for this admission?: Yes (18) Dehydration Is this a current diagnosis for this admission?: Yes (19) Hospital-acquired pneumonia Is this a current diagnosis for this admission?: Yes Plan: Patient will continue IV vancomycin, cefepime for hospital-acquired pneumonia
[2018-02-13] MEDS: POTASSIUM CHLORIDE 20 MEQ/15 ML UDCUP PEG SCH (22:21)
[2018-02-14] MEDS: VANCOMYCIN HCL INJ 500 MG VIAL PEG SCH ×4 (00:02→17:35)
[2018-02-14] MEDS: METRONIDAZOLE 500 MG/NS RTU 100 ML IV SCH ×4 (00:03→17:34)
[2018-02-14] MEDS: DILTIAZEM HCL 60 MG TABLET PEG SCH ×4 (00:07→17:34)
[2018-02-14] MEDS: CEFEPIME 1 GM/D5W RTU 1 GM/50 ML RTUPB IV SCH ×2 (05:48→18:25)
[2018-02-14] MEDS: DEXTROSE 5%-WATER 1000 ML 1,000 ML with POTASSIUM CHLORIDE 40 MEQ IV PRN ×4 (05:49→18:29)
[2018-02-14 06:45] LABS: HEMATOCRIT 26.9 % (37.9-51.0); HEMOGLOBIN 8.9 g/dL (13.5-17.0); MEAN CORPUSCULAR HEMOGLOBIN 31.1 pg (27.0-33.4); MEAN CORPUSCULAR VOLUME 94 fl (80-97); RED BLOOD COUNT 2.85 10^6/uL (4.35-5.55); RED CELL DISTRIBUTION WIDTH 18.4 % (11.5-14.0); WHITE BLOOD COUNT 5.9 10^3/uL (4.0-10.5)
[2018-02-14 06:59] LABS: ALANINE AMINOTRANSFERASE 18 U/L (21-72); ALBUMIN 2.6 g/dL (3.5-5.0); ALKALINE PHOSPHATASE 107 U/L (38-126); ANION GAP 13 (5-19); ASPARTATE AMINO TRANSFERASE 16 U/L (17-59); BILIRUBIN,DIRECT 0.4 mg/dL (0.0-0.4); BILIRUBIN,TOTAL 0.5 mg/dL (0.2-1.3); BLOOD UREA NITROGEN 12 mg/dL (7-20); CALCIUM 10.6 mg/dL (8.4-10.2); CARBON DIOXIDE 13 mmol/L (22-30); CHLORIDE 129 mmol/L (98-107); GLUCOSE 145 mg/dL (75-110); POTASSIUM 4.5 mmol/L (3.6-5.0); SODIUM 154.8 mmol/L (137-145); TOTAL PROTEIN 6.7 g/dL (6.3-8.2)
[2018-02-14 07:13] LABS: PLATELET COUNT 57 10^3/uL (150-450)
[2018-02-14 07:20] LABS: ABSOLUTE LYMPHOCYTES# (MANUAL) 1.5 10^3/uL (0.5-4.7); ABSOLUTE MONOCYTES # (MANUAL) 0.2 10^3/uL (0.1-1.4); ABSOLUTE NEUTROPHILS# (MANUAL) 4.2 10^3/uL (1.7-8.2); BAND NEUTROPHILS % (MANUAL) 1 % (3-5); BASOPHILS % (MANUAL) 0 % (0-2); EOSINOPHILS % (MANUAL) 0 % (0-6); LYMPHOCYTES % (MANUAL) 25 % (13-45); MONOCYTES % (MANUAL) 3 % (3-13); NUCLEATED RED BLOOD CELLS 2 /100 WBC (0); SEGMENTED NEUTROPHILS % (MAN) 71 % (42-78); TOTAL CELLS COUNTED 100
[2018-02-14 07:22] LABS: TOXIC GRANULATION 1+
[2018-02-14 07:23] LABS: ANISOCYTOSIS 1+; PLATELET COMMENT DECREASED; POIKILOCYTOSIS SLIGHT; TARGET CELLS SLIGHT
[2018-02-14] MEDS: RITONAVIR 100 MG TABLET PEG SCH (09:12)
[2018-02-14] MEDS: RALTEGRAVIR POTASSIUM 400 MG TABLET PEG SCH ×2 (09:13→22:11)
[2018-02-14] MEDS: MUPIROCIN 2% OINTMENT 22 GM TP SCH ×2 (09:13→17:34)
[2018-02-14] MEDS: MEGESTROL ACETATE SUSP 400 MG/10 ML UDCUP PEG SCH (09:13)
--- NOTE | 2018-02-14 16:20 | PDOC PROGRESS REPORT ---
Subjective Progress Note for:: 02/14/18 Subjective:: Patient was seen by the bedside, he has severe diarrhea associated with Clostridium difficile colitis, Enterococcus faecalis septicemia. He continues to have occasional confusion with episode of lucidity. Reason For Visit: SEPSIS Physical Exam Vital Signs: Temp Pulse Resp BP Pulse Ox 98.3 F 109 H 26 H 135/81 H 100 02/14/18 11:13 02/14/18 14:00 02/14/18 11:13 02/14/18 11:13 02/14/18 16:01 Intake & Output 02/13/18 02/14/18 02/15/18 06:59 06:59 06:59 Intake Total 1640 540 371 Output Total 1575 3150 525 Balance 65 -2610 -154 Weight 61.1 kg 62.9 kg General appearance: PRESENT: no acute distress Eye exam: PRESENT: PERRLA Respiratory exam: PRESENT: clear to auscultation melba Cardiovascular exam: PRESENT: +S1, +S2 GI/Abdominal exam: PRESENT: soft Neurological exam: PRESENT: alert Results Laboratory Results: 02/14/18 06:10 02/14/18 06:10 02/14/18 02/14/18 06:10 06:10 WBC 5.9 RBC 2.85 L Hgb 8.9 L Hct 26.9 L MCV 94 MCH 31.1 MCHC 33.0 RDW 18.4 H Plt Count 57 L Seg Neutrophils % Not Reportable Lymphocytes % Not Reportable Monocytes % Not Reportable Eosinophils % Not Reportable Basophils % Not Reportable Absolute Neutrophils Not Reportable Absolute Lymphocytes Not Reportable Absolute Monocytes Not Reportable Absolute Eosinophils Not Reportable Absolute Basophils Not Reportable Sodium 154.8 H Potassium 4.5 Chloride 129 H Carbon Dioxide 13 L Anion Gap 13 BUN 12 Creatinine 1.11 Est GFR ( Amer) > 60 Est GFR (Non-Af Amer) > 60 Glucose 145 H Calcium 10.6 H Total Bilirubin 0.5 AST 16 L ALT 18 L Alkaline Phosphatase 107 Total Protein 6.7 Albumin 2.6 L 01/30/18 01/30/18 01/30/18 16:05 16:05 16:05 Creatine Kinase 277 H CK-MB (CK-2) 3.87 Troponin I 0.014 NT-Pro-B Natriuret Pep 1940 H 03/14/18 03/14/18 03/14/18 00:10 05:07 05:07 Creatine Kinase 767 H CK-MB (CK-2) 4.59 H 5.33 H Troponin I 0.016 0.013 NT-Pro-B Natriuret Pep Impressions: Chest X-Ray 02/09/18 00:00 IMPRESSION: NO ACUTE RADIOGRAPHIC FINDING IN THE CHEST. NO SIGNIFICANT CHANGE FROM PRIOR STUDY. Abdomen/Pelvis CT 02/10/18 00:00 IMPRESSION: Multifocal airspace disease worrisome for pneumonia Diffuse bladder distention with mild bilateral hydronephrosis and hydroureter. Findings are worrisome for urinary retention Right permanent central line tip superior vena cava. G tube tip in the gastric antrum NORMAL CT OF THE ABDOMEN AND PELVIS WITHOUT INTRAVENOUS CONTRAST. Chest CT 02/10/18 00:00 IMPRESSION: Multifocal airspace disease worrisome for pneumonia Diffuse bladder distention with mild bilateral hydronephrosis and hydroureter. Findings are worrisome for urinary retention Right permanent central line tip superior vena cava. G tube tip in the gastric antrum NORMAL CT OF THE ABDOMEN AND PELVIS WITHOUT INTRAVENOUS CONTRAST. Head CT 02/10/18 00:00 IMPRESSION: No acute intracranial findings. Motion artifact EVIDENCE OF ACUTE STROKE: No Assessment & Plan - Diagnosis (1) Septic shock Is this a current diagnosis for this admission?: Yes (2) Hypotension Qualifiers: Hypotension type: unspecified hypotension type Qualified Code(s): I95.9 - Hypotension, unspecified Is this a current diagnosis for this admission?: Yes (3) Urinary tract infection Qualifiers: Urinary tract infection type: site unspecified Hematuria presence: without hematuria Qualified Code(s): N39.0 - Urinary tract infection, site not specified Is this a current diagnosis for this admission?: Yes (4) Metabolic encephalopathy Is this a current diagnosis for this admission?: Yes (5) HIV (human immunodeficiency virus infection) Is this a current diagnosis for this admission?: Yes (6) Atrial fibrillation with RVR Is this a current diagnosis for this admission?: Yes (7) Gram positive septicemia Is this a current diagnosis for this admission?: Yes (8) UTI (urinary tract infection) due to Enterococcus Is this a current diagnosis for this admission?: Yes (9) Enterococcus faecalis infection Is this a current diagnosis for this admission?: Yes (10) Clostridium difficile diarrhea Is this a current diagnosis for this admission?: Yes (11) Hypokalemia Is this a current diagnosis for this admission?: Yes (12) Anemia Qualifiers: Anemia type: unspecified type Qualified Code(s): D64.9 - Anemia, unspecified Is this a current diagnosis for this admission?: Yes (13) Hypernatremia Is this a current diagnosis for this admission?: Yes (14) Multifocal pneumonia Is this a current diagnosis for this admission?: Yes (15) Acute kidney injury Is this a current diagnosis for this admission?: Yes (16) Normal anion gap metabolic acidosis Is this a current diagnosis for this admission?: Yes (17) Hypernatremia Is this a current diagnosis for this admission?: Yes (18) Dehydration Is this a current diagnosis for this admission?: Yes (19) Hospital-acquired pneumonia Is this a current diagnosis for this admission?: Yes - Plan Summary Plan Summary: He will continue present IV antibiotic hydration with fluid, the serum sodium is improving, the kidney function is normalized, still have profuse diarrhea
[2018-02-14] MEDS: PAROXETINE HCL 20 MG TABLET PEG SCH (22:10)
[2018-02-14] MEDS: VANCOMYCIN HCL 1,000 MG in DEXTROSE 5%-WATER 250 ML IV SCH (22:10)
[2018-02-14] MEDS: POTASSIUM CHLORIDE 20 MEQ/15 ML UDCUP PEG SCH (22:11)
[2018-02-15] MEDS: VANCOMYCIN HCL INJ 500 MG VIAL PEG SCH ×4 (00:30→17:42)
[2018-02-15] MEDS: DILTIAZEM HCL 60 MG TABLET PEG SCH ×4 (00:30→17:42)
[2018-02-15] MEDS: METRONIDAZOLE 500 MG/NS RTU 100 ML IV SCH ×4 (00:30→17:42)
[2018-02-15 05:30] LABS: ABSOLUTE EOSINOPHILS # (AUTO) 0.1 10^3/uL (0.0-0.6); ABSOLUTE LYMPHOCYTES (AUTO) 1.2 10^3/uL (0.5-4.7); ABSOLUTE MONOCYTES (AUTO) 0.5 10^3/uL (0.1-1.4); ABSOLUTE NEUT (AUTO) 4.4 10^3/uL (1.7-8.2); BASOPHILS % (AUTO) 0.4 % (0-2); EOSINOPHILS % (AUTO) 1.2 % (0-6); HEMOGLOBIN 8.6 g/dL (13.5-17.0); LYMPHOCYTES % (AUTO) 19.4 % (13-45); MEAN CORPUSCULAR HEMOGLOBIN 30.9 pg (27.0-33.4); MEAN CORPUSCULAR HGB CONC 33.2 g/dL (32.0-36.0); MEAN CORPUSCULAR VOLUME 93 fl (80-97); MONOCYTES % (AUTO) 8.3 % (3-13); RED BLOOD COUNT 2.79 10^6/uL (4.35-5.55); RED CELL DISTRIBUTION WIDTH 18.2 % (11.5-14.0); SEGMENTED NEUTROPHILS % (AUTO) 70.7 % (42-78); TOTAL CELLS COUNTED % (AUTO) 100 %; WHITE BLOOD COUNT 6.3 10^3/uL (4.0-10.5)
[2018-02-15 05:44] LABS: ALANINE AMINOTRANSFERASE 17 U/L (21-72); ALBUMIN 2.5 g/dL (3.5-5.0); ALKALINE PHOSPHATASE 122 U/L (38-126); ANION GAP 9 (5-19); ASPARTATE AMINO TRANSFERASE 15 U/L (17-59); BILIRUBIN,DIRECT 0.5 mg/dL (0.0-0.4); BILIRUBIN,TOTAL 0.5 mg/dL (0.2-1.3); BLOOD UREA NITROGEN 13 mg/dL (7-20); CALCIUM 10.6 mg/dL (8.4-10.2); CARBON DIOXIDE 12 mmol/L (22-30); CHLORIDE 128 mmol/L (98-107); GLUCOSE 117 mg/dL (75-110); SODIUM 148.9 mmol/L (137-145); TOTAL PROTEIN 7.2 g/dL (6.3-8.2)
[2018-02-15] MEDS: CEFEPIME 1 GM/D5W RTU 1 GM/50 ML RTUPB IV SCH ×2 (05:59→18:41)
[2018-02-15 06:13] LABS: PLATELET COUNT 68 10^3/uL (150-450)
[2018-02-15] MEDS: MEGESTROL ACETATE SUSP 400 MG/10 ML UDCUP PEG SCH (09:19)
[2018-02-15] MEDS: RALTEGRAVIR POTASSIUM 400 MG TABLET PEG SCH ×2 (09:19→22:44)
[2018-02-15] MEDS: RITONAVIR 100 MG TABLET PEG SCH (09:19)
[2018-02-15] MEDS: MUPIROCIN 2% OINTMENT 22 GM TP SCH ×2 (09:19→17:47)
[2018-02-15] MEDS: DEXTROSE 5%-WATER 1000 ML 1,000 ML IV PRN (09:19)
[2018-02-15] MEDS ORDERED: FUROSEMIDE INJ/PF 40 MG/4 ML SDV IV ONE (19:15)
[2018-02-15] MEDS: VANCOMYCIN HCL 1,000 MG in DEXTROSE 5%-WATER 250 ML IV SCH (20:28)
--- NOTE | 2018-02-15 20:55 | PDOC PROGRESS REPORT ---
Subjective Progress Note for:: 02/15/18 Subjective:: Patient was seen by the bedside, he is not responding to verbal commands, respond to noxious stimulus, grimacing, it is interesting because the electrolytes are improving but patient is poorly responsive Reason For Visit: SEPSIS Physical Exam Vital Signs: Temp Pulse Resp BP Pulse Ox 97.6 F 97 22 H 142/87 H 100 02/15/18 20:18 02/15/18 20:18 02/15/18 20:18 02/15/18 20:18 02/15/18 20:18 Intake & Output 02/14/18 02/15/18 02/16/18 06:59 06:59 06:59 Intake Total 540 2306 541 Output Total 3150 6897 925 Balance -1851 -050 -191 Weight 62.9 kg 62.1 kg General appearance: PRESENT: no acute distress Eye exam: PRESENT: PERRLA Respiratory exam: PRESENT: clear to auscultation melba Cardiovascular exam: PRESENT: +S1, +S2 GI/Abdominal exam: PRESENT: soft Neurological exam: PRESENT: altered Results Laboratory Results: 02/15/18 04:30 02/15/18 04:30 02/15/18 02/15/18 04:30 04:30 WBC 6.3 RBC 2.79 L Hgb 8.6 L Hct 26.0 L MCV 93 MCH 30.9 MCHC 33.2 RDW 18.2 H Plt Count 68 L Seg Neutrophils % 70.7 Lymphocytes % 19.4 Monocytes % 8.3 Eosinophils % 1.2 Basophils % 0.4 Absolute Neutrophils 4.4 Absolute Lymphocytes 1.2 Absolute Monocytes 0.5 Absolute Eosinophils 0.1 Absolute Basophils 0.0 Sodium 148.9 H Potassium 5.0 Chloride 128 H Carbon Dioxide 12 L Anion Gap 9 BUN 13 Creatinine 0.97 Est GFR ( Amer) > 60 Est GFR (Non-Af Amer) > 60 Glucose 117 H Calcium 10.6 H Total Bilirubin 0.5 AST 15 L ALT 17 L Alkaline Phosphatase 122 Total Protein 7.2 Albumin 2.5 L 02/09/18 20:18 Blood Blood Culture - Final NO GROWTH IN 5 DAYS 02/09/18 20:00 Blood Blood Culture - Final NO GROWTH IN 5 DAYS 01/30/18 01/30/18 01/30/18 16:05 16:05 16:05 Creatine Kinase 277 H CK-MB (CK-2) 3.87 Troponin I 0.014 NT-Pro-B Natriuret Pep 1940 H 01/31/18 01/31/18 01/31/18 00:10 05:07 05:07 Creatine Kinase 767 H CK-MB (CK-2) 4.59 H 5.33 H Troponin I 0.016 0.013 NT-Pro-B Natriuret Pep Impressions: Chest X-Ray 02/09/18 00:00 IMPRESSION: NO ACUTE RADIOGRAPHIC FINDING IN THE CHEST. NO SIGNIFICANT CHANGE FROM PRIOR STUDY. Abdomen/Pelvis CT 02/10/18 00:00 IMPRESSION: Multifocal airspace disease worrisome for pneumonia Diffuse bladder distention with mild bilateral hydronephrosis and hydroureter. Findings are worrisome for urinary retention Right permanent central line tip superior vena cava. G tube tip in the gastric antrum NORMAL CT OF THE ABDOMEN AND PELVIS WITHOUT INTRAVENOUS CONTRAST. Chest CT 02/10/18 00:00 IMPRESSION: Multifocal airspace disease worrisome for pneumonia Diffuse bladder distention with mild bilateral hydronephrosis and hydroureter. Findings are worrisome for urinary retention Right permanent central line tip superior vena cava. G tube tip in the gastric antrum NORMAL CT OF THE ABDOMEN AND PELVIS WITHOUT INTRAVENOUS CONTRAST. Head CT 02/10/18 00:00 IMPRESSION: No acute intracranial findings. Motion artifact EVIDENCE OF ACUTE STROKE: No Assessment & Plan - Diagnosis (1) Septic shock Is this a current diagnosis for this admission?: Yes (2) Hypotension Qualifiers: Hypotension type: unspecified hypotension type Qualified Code(s): I95.9 - Hypotension, unspecified Is this a current diagnosis for this admission?: Yes (3) Urinary tract infection Qualifiers: Urinary tract infection type: site unspecified Hematuria presence: without hematuria Qualified Code(s): N39.0 - Urinary tract infection, site not specified Is this a current diagnosis for this admission?: Yes (4) Metabolic encephalopathy Is this a current diagnosis for this admission?: Yes (5) HIV (human immunodeficiency virus infection) Is this a current diagnosis for this admission?: Yes (6) Atrial fibrillation with RVR Is this a current diagnosis for this admission?: Yes (7) Gram positive septicemia Is this a current diagnosis for this admission?: Yes (8) UTI (urinary tract infection) due to Enterococcus Is this a current diagnosis for this admission?: Yes (9) Enterococcus faecalis infection Is this a current diagnosis for this admission?: Yes (10) Clostridium difficile diarrhea Is this a current diagnosis for this admission?: Yes (11) Hypokalemia Is this a current diagnosis for this admission?: Yes (12) Anemia Qualifiers: Anemia type: unspecified type Qualified Code(s): D64.9 - Anemia, unspecified Is this a current diagnosis for this admission?: Yes (13) Hypernatremia Is this a current diagnosis for this admission?: Yes (14) Multifocal pneumonia Is this a current diagnosis for this admission?: Yes (15) Acute kidney injury Is this a current diagnosis for this admission?: Yes (16) Normal anion gap metabolic acidosis Is this a current diagnosis for this admission?: Yes (17) Hypernatremia Is this a current diagnosis for this admission?: Yes (18) Dehydration Is this a current diagnosis for this admission?: Yes (19) Hospital-acquired pneumonia Is this a current diagnosis for this admission?: Yes - Plan Summary Plan Summary: Patient is poorly responsive, a poor prognosis sign, will continue to monitor patient, reduce 5% dextrose infusion raised
--- NOTE | 2018-02-15 22:06 | RADIOLOGY REPORT (SQ) ---
EXAM DESCRIPTION: CT HEAD WITHOUT COMPLETED DATE/TIME: 02/15/2018 9:53 pm REASON FOR STUDY: unresponsive COMPARISON: None. TECHNIQUE: Axial images acquired through the brain without intravenous contrast. Images reviewed wi th bone, brain and subdural windows. Additional sagittal and coronal reconstructions were generated. Images stored on PACS. All CT scanners at this facility use dose modulation, iterative reconstruction, and/or weight based d osing when appropriate to reduce radiation dose to as low as reasonably achievable (ALARA). [facility]: Dose Right [facility]: CareDose [facility]: Dose Right [facility]: Teradose 4D [facility]: [employer] RADIATION DOSE: CT Rad equipment meets quality standard of care and radiation dose reduction techniq ues were employed. CTDIvol: 53.2 mGy. DLP: 964 mGy-cm. mGy. LIMITATIONS: None. FINDINGS: VENTRICLES: Prominent ventricles secondary to involutional atrophy. CEREBRUM: Mild cortical atrophy. No masses. No hemorrhage. No midline shift. No evidence for acut e infarction. 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 Few scattered areas of low density in the whi te matter most likely chronic small vessel ischemic changes. CEREBELLUM: There is a small old infarct in each lobe of the cerebellum. EXTRAAXIAL SPACES: No fluid collections. No masses. ORBITS AND GLOBE: No intra- or extraconal masses. Normal contour of globe without masses. CALVARIUM: No fracture. PARANASAL SINUSES: No fluid or mucosal thickening. SOFT TISSUES: No mass or hematoma. OTHER: No other significant finding. IMPRESSION: Old infarcts. Microvascular ischemia. No acute imaging findings in the brain. EVIDENCE OF ACUTE STROKE: NO. COMMENT: Quality ID # [id number]: Final reports with documentation of one or more dose reduction techniques (e.g., Automated exposure control, adjustment of the mA and/or kV according to patient size, use of iterative reconstruction technique) TECHNICAL DOCUMENTATION: JOB ID: [id number] [employer]- All Rights Reserved Reading location - IP/workstation name: [email or web address]
[2018-02-15] MEDS: PAROXETINE HCL 20 MG TABLET PEG SCH (22:44)
[2018-02-15] MEDS: POTASSIUM CHLORIDE 20 MEQ/15 ML UDCUP PEG SCH (22:45)
[2018-02-16] MEDS: DILTIAZEM HCL 60 MG TABLET PEG SCH ×4 (00:36→17:12)
[2018-02-16] MEDS: VANCOMYCIN HCL INJ 500 MG VIAL PEG SCH ×4 (00:42→18:41)
[2018-02-16] MEDS: METRONIDAZOLE 500 MG/NS RTU 100 ML IV SCH ×4 (00:43→18:41)
[2018-02-16] MEDS: CEFEPIME 1 GM/D5W RTU 1 GM/50 ML RTUPB IV SCH ×2 (05:08→17:12)
[2018-02-16 05:58] LABS: HEMATOCRIT 29.3 % (37.9-51.0); HEMOGLOBIN 9.8 g/dL (13.5-17.0); MEAN CORPUSCULAR HEMOGLOBIN 31.1 pg (27.0-33.4); MEAN CORPUSCULAR HGB CONC 33.6 g/dL (32.0-36.0); MEAN CORPUSCULAR VOLUME 93 fl (80-97); RED BLOOD COUNT 3.16 10^6/uL (4.35-5.55); RED CELL DISTRIBUTION WIDTH 17.8 % (11.5-14.0)
[2018-02-16 06:05] LABS: PLATELET COUNT 68 10^3/uL (150-450)
[2018-02-16 06:09] LABS: ALANINE AMINOTRANSFERASE 13 U/L (21-72); ALKALINE PHOSPHATASE 138 U/L (38-126); ANION GAP 13 (5-19); ASPARTATE AMINO TRANSFERASE 21 U/L (17-59); BILIRUBIN,DIRECT 0.4 mg/dL (0.0-0.4); BILIRUBIN,TOTAL 0.5 mg/dL (0.2-1.3); BLOOD UREA NITROGEN 14 mg/dL (7-20); CARBON DIOXIDE 14 mmol/L (22-30); CHLORIDE 117 mmol/L (98-107); GLUCOSE 145 mg/dL (75-110); POTASSIUM 4.6 mmol/L (3.6-5.0); SODIUM 144.4 mmol/L (137-145); TOTAL PROTEIN 7.7 g/dL (6.3-8.2)
[2018-02-16 06:20] LABS: ABSOLUTE MONOCYTES # (MANUAL) 0.1 10^3/uL (0.1-1.4); ABSOLUTE NEUTROPHILS# (MANUAL) 3.9 10^3/uL (1.7-8.2); BASOPHILS % (MANUAL) 0 % (0-2); EOSINOPHILS % (MANUAL) 2 % (0-6); LYMPHOCYTES % (MANUAL) 19 % (13-45); MONOCYTES % (MANUAL) 1 % (3-13); SEGMENTED NEUTROPHILS % (MAN) 78 % (42-78); TOTAL CELLS COUNTED 100
[2018-02-16 06:28] LABS: TOXIC GRANULATION SLIGHT
[2018-02-16 06:29] LABS: OVALOCYTES SLIGHT; PLATELET COMMENT DECREASED; POLYCHROMASIA 1+; TARGET CELLS 1+
[2018-02-16] MEDS: DEXTROSE 5%-WATER 1000 ML 1,000 ML IV PRN (08:41)
[2018-02-16] MEDS: METOPROLOL TARTRATE PF/INJ 5 MG/5 ML SDV IV PRN (08:41)
[2018-02-16] MEDS: RALTEGRAVIR POTASSIUM 400 MG TABLET PEG SCH ×2 (10:21→23:05)
[2018-02-16] MEDS: MEGESTROL ACETATE SUSP 400 MG/10 ML UDCUP PEG SCH (10:21)
[2018-02-16] MEDS: RITONAVIR 100 MG TABLET PEG SCH (10:21)
[2018-02-16] MEDS: MUPIROCIN 2% OINTMENT 22 GM TP SCH ×2 (10:22→17:12)
--- NOTE | 2018-02-16 13:51 | RADIOLOGY REPORT (SQ) ---
EXAM DESCRIPTION: MRI HEAD COMBO COMPLETED DATE/TIME: 02/16/2018 1:31 pm REASON FOR STUDY: unresponsiveness COMPARISON: CT brain 02/15/2018, 02/10/2018, 01/30/2018, 11/17/2017 MRI brain 08/28/2017 TECHNIQUE: Multiplanar imaging includes noncontrasted T1, T2, FLAIR, diffusion with ADC map and post gadolinium contrast T1 sequences. Images stored on PACS. CONTRAST TYPE AND DOSE: 10 mL MultiH[employer] RENAL FUNCTION: GFR > 60. LIMITATIONS: None. FINDINGS: ANATOMY: No developmental anomalies. Normal vascular flow voids. Pituitary fossa normal. CSF SPACES: Normal in size and contour. No hemorrhage. CEREBRUM: No MR evidence of acute ischemic change, acute intracranial hemorrhage mass effect or midli ne shift. Old infarcts are present in the right posterior frontal/ parietal region, and bilateral an terior frontal cortex. Old lacunar infarcts in the bilateral basal ganglia. No abnormal brain paren chymal or dural enhancement post contrast. POSTERIOR FOSSA: Old infarcts in the inferior right cerebellar hemisphere and left superior cerebella r hemisphere. No acute posterior fossa hemorrhage mass effect or midline shift. Internal auditory c anals, cerebellopontine angles, mastoids normal. No enhancing lesions. No abnormal enhancement post c ontrast. DIFFUSION IMAGING: Negative for acute or subacute infarction. ORBITS: No masses. Globes post cataract surgery PARANASAL SINUSES: No fluid levels. Mucosa normal. OTHER: Mastoid air cell fluid bilaterally. IMPRESSION: Multiple old infarcts. No acute findings. EVIDENCE OF ACUTE STROKE: No TECHNICAL DOCUMENTATION: JOB ID: [id number] [employer]- All Rights Reserved Reading location - IP/workstation name: [email or web address]
--- NOTE | 2018-02-16 14:27 | PDOC CONSULTATION ---
Consultation Consult Date: 02/09/18 Attending physician:: AMY ERICKSON Consult reason:: Respiratory respiratory failure/HIV History of Present Illness Admission Date/PCP: 01/30/18 13:43 GE HOLMAN MD History of Present Illness: RAE MONTEMAYOR is a 57 year old male with HIV disease, head and neck cancer status post radiation therapy and chemotherapy, presently a resident of [facility] undergoing rehabilitation, he was transferred from the [facility] to the emergency room for evaluation of high fever,Temperature 103 and altered mental status. Is currently obtunded and all information is obtained from the chart Past Medical History Cardiac Medical History: Reports: Coronary Artery Disease, Hyperlipidema, Hypertension Denies: Myocardial Infarction Pulmonary Medical History: Reports: Pneumonia Denies: Asthma, Bronchitis, Chronic Obstructive Pulmonary Disease (COPD), Tuberculosis Neurological Medical History: Reports: Ischemic CVA, Seizures - LAST ONE 3 WEEKS Endocrine Medical History: Reports: Diabetes Mellitus Type 2 GI Medical History: Reports: Hepatitis - HEP C,HIV+ Denies: Hiatal Hernia Musculoskeltal Medical History: Reports: Arthritis Psychiatric Medical History: Denies: Depression Infectious Medical History: Reports: HIV Past Surgical History Past Surgical History: Reports: Cardiac Catheterization, Coronary Stent, Orthopedic Surgery - lumbar surgery, Other - peg Denies: Pacemaker Social History Information Source: [facility] Records Lives with: Longterm Smoking Status: Former Smoker Frequency of Alcohol Use: None Hx Recreational Drug Use: No - former drug user Drugs: None Hx Prescription Drug Abuse: No - Advance Directive Resuscitation Status: Full Code Family History Parental Family History Reviewed: No Children Family History Reviewed: No Sibling(s) Family History Reviewed.: No Medication/Allergy Home Medications: Amlodipine Besylate [Norvasc 10 mg Tablet] 10 mg PO DAILY 01/30/18 Atorvastatin Calcium [Lipitor 10 mg Tablet] 10 mg PO QHS 01/30/18 Gabapentin [Neurontin] 800 mg PO Q12 01/30/18 Insulin Lispro [Humalog Insulin 100 Unit/1 ml 3 ml Vial] 0 unit SUBCUT .SLD SCALE 01/30/18 Ketoconazole [Nizoral 2% Shampoo 120 Ml Bottle] 1 applic TP MOTH@1000 01/30/18 Levetiracetam [Keppra 500 mg Tablet] 500 mg PO Q12 01/30/18 Levocetirizine Dihydrochloride [Xyzal] 5 mg PO DAILY 01/30/18 Lorazepam [Ativan 0.5 mg Tablet] 0.5 mg PO Q8HP PRN 01/30/18 Metformin HCl [Glucophage] 1,000 mg PO BIDBS 01/30/18 Metoprolol Succinate [Toprol XL 100 mg Tablet] 150 mg PO DAILY 01/30/18 Nystatin/Dexameth/Diphen [Magic Mouthwash (Omh Formula) Susp] 5 ml PO Q4HP PRN 01/30/18 Ondansetron HCl [Zofran 8 mg Tablet] 8 mg PO Q8HP PRN 01/30/18 Paroxetine HCl [Paxil 20 mg Tablet] 20 mg PO DAILY 01/30/18 Prochlorperazine Maleate [Compazine 10 mg Tablet] 10 mg PO Q6HP PRN 01/30/18 Raltegravir Potassium [Isentress 400 mg Tablet] 400 mg PO Q12 01/30/18 Ritonavir [Norvir 100 mg Tablet] 100 mg PO DAILY 01/30/18 Valsartan [Diovan] 320 mg PO DAILY@0000 01/30/18 Zinc Oxide [Zinc Oxide 20% Ointment 28.35 gm] 1 applic TP DAILYP PRN 01/30/18 Allergies/Adverse Reactions: No Known Drug Allergies Allergy (Verified 11/08/17 12:12) olive extract [Wilbur] Allergy (Verified 11/08/17 12:10) Shortness of Breath Review of Systems ROS unobtainable: Due to mental status Physical Exam Vital Signs: Temp Pulse Resp BP Pulse Ox 99.8 F 121 H 22 H 136/90 H 96 02/16/18 11:38 02/16/18 11:38 02/16/18 11:38 02/16/18 11:38 02/16/18 11:38 Intake & Output 02/15/18 02/16/18 02/17/18 06:59 06:59 06:59 Intake Total 2307 791 420 Output Total 8672 3768 Balance -944 -7933 420 Weight 62.1 kg 55.6 kg General appearance: PRESENT: no acute distress, disheveled, thin. ABSENT: cooperative Head exam: PRESENT: atraumatic, normocephalic Eye exam: PRESENT: conjunctiva pale. ABSENT: nystagmus, periorbital swelling, scleral icterus Mouth exam: PRESENT: dry mucosa, neck supple, tongue midline Neck exam: ABSENT: carotid bruit, JVD, lymphadenopathy, thyromegaly, tracheal deviation, tracheostomy Respiratory exam: PRESENT: decreased breath sounds, prolonged expiratory phas, rales, rhonchi, symmetrical, unlabored, wheezes. ABSENT: retraction, stridor Cardiovascular exam: PRESENT: RRR, +S1, +S2 Pulses: PRESENT: normal radial pulses GI/Abdominal exam: PRESENT: diminished bowel sounds, soft Extremities exam: ABSENT: clubbing, pedal edema Musculoskeletal exam: ABSENT: ambulatory, deformity, dislocation Neurological exam: ABSENT: oriented to person, oriented to place Skin exam: PRESENT: dry, warm Results Laboratory Results: 02/16/18 04:30 02/16/18 04:30 02/16/18 02/16/18 04:30 04:30 WBC 5.0 RBC 3.16 L Hgb 9.8 L Hct 29.3 L MCV 93 MCH 31.1 MCHC 33.6 RDW 17.8 H Plt Count 68 L Seg Neutrophils % Not Reportable Lymphocytes % Not Reportable Monocytes % Not Reportable Eosinophils % Not Reportable Basophils % Not Reportable Absolute Neutrophils Not Reportable Absolute Lymphocytes Not Reportable Absolute Monocytes Not Reportable Absolute Eosinophils Not Reportable Absolute Basophils Not Reportable Sodium 144.4 Potassium 4.6 Chloride 117 H Carbon Dioxide 14 L Anion Gap 13 BUN 14 Creatinine 0.92 Est GFR ( Amer) > 60 Est GFR (Non-Af Amer) > 60 Glucose 145 H Calcium 11.0 H Total Bilirubin 0.5 AST 21 ALT 13 L Alkaline Phosphatase 138 H Total Protein 7.7 Albumin 3.0 L 01/30/18 01/30/18 01/30/18 16:05 16:05 16:05 Creatine Kinase 277 H CK-MB (CK-2) 3.87 Troponin I 0.014 NT-Pro-B Natriuret Pep 1940 H 01/31/18 01/31/18 01/31/18 00:10 05:07 05:07 Creatine Kinase 767 H CK-MB (CK-2) 4.59 H 5.33 H Troponin I 0.016 0.013 NT-Pro-B Natriuret Pep Impressions: Chest X-Ray 02/09/18 00:00 IMPRESSION: NO ACUTE RADIOGRAPHIC FINDING IN THE CHEST. NO SIGNIFICANT CHANGE FROM PRIOR STUDY. Abdomen/Pelvis CT 02/10/18 00:00 IMPRESSION: Multifocal airspace disease worrisome for pneumonia Diffuse bladder distention with mild bilateral hydronephrosis and hydroureter. Findings are worrisome for urinary retention Right permanent central line tip superior vena cava. G tube tip in the gastric antrum NORMAL CT OF THE ABDOMEN AND PELVIS WITHOUT INTRAVENOUS CONTRAST. Chest CT 02/10/18 00:00 IMPRESSION: Multifocal airspace disease worrisome for pneumonia Diffuse bladder distention with mild bilateral hydronephrosis and hydroureter. Findings are worrisome for urinary retention Right permanent central line tip superior vena cava. G tube tip in the gastric antrum NORMAL CT OF THE ABDOMEN AND PELVIS WITHOUT INTRAVENOUS CONTRAST. Head CT 02/15/18 00:00 IMPRESSION: Old infarcts. Microvascular ischemia. No acute imaging findings in the brain. EVIDENCE OF ACUTE STROKE: NO. Head MRI 02/16/18 00:00 IMPRESSION: Multiple old infarcts. No acute findings. EVIDENCE OF ACUTE STROKE: No Assessment & Plan - Diagnosis (1) HIV (human immunodeficiency virus infection) Is this a current diagnosis for this admission?: Yes (2) Hospital-acquired pneumonia Is this a current diagnosis for this admission?: Yes Plan: Patient lives in a healthcare facility;Right lower lobe (4) Aspiration into airway Qualifiers: Encounter type: initial encounter Qualified Code(s): T17.908A - Unspecified foreign body in respiratory tract, part unspecified causing other injury, initial encounter Is this a current diagnosis for this admission?: Yes (5) Clostridium difficile diarrhea Is this a current diagnosis for this admission?: Yes Plan: Labs- All tests 24 hr 02/11/18 00:35 C. difficile Tox (PCR) POSITIVE
[2018-02-16] MEDS ORDERED: PAMIDRONATE DISODIUM INJ 30 MG/10 ML VIAL IV ONE ×3 (20:02→22:48)
--- NOTE | 2018-02-16 20:04 | PDOC PROGRESS REPORT ---
Subjective Progress Note for:: 02/16/18 Subjective:: Patient with altered mental status, MRI brain was done today with contrast it was negative, he has hypercalcemia with suppressed PTH suggesting that he has hypercalcemia of malignancy, he has a history of head and neck cancer that was treated with radiation therapy and chemotherapy. The unresponsiveness is most likely from the hypercalcemia. Reason For Visit: SEPSIS Physical Exam Vital Signs: Temp Pulse Resp BP Pulse Ox 98.6 F 106 H 20 138/88 H 100 02/16/18 15:30 02/16/18 15:30 02/16/18 15:30 02/16/18 15:30 02/16/18 15:30 Intake & Output 02/15/18 02/16/18 02/17/18 06:59 06:59 06:59 Intake Total 2306 791 2119 Output Total 3250 4075 300 Balance -944 -3164 1819 Weight 62.1 kg 55.6 kg General appearance: PRESENT: no acute distress Eye exam: PRESENT: PERRLA Respiratory exam: PRESENT: crackles Cardiovascular exam: PRESENT: +S1, +S2 GI/Abdominal exam: PRESENT: soft Neurological exam: PRESENT: altered Results Laboratory Results: 02/16/18 04:30 02/16/18 04:30 02/16/18 02/16/18 02/16/18 04:30 04:30 15:00 WBC 5.0 RBC 3.16 L Hgb 9.8 L Hct 29.3 L MCV 93 MCH 31.1 MCHC 33.6 RDW 17.8 H Plt Count 68 L Seg Neutrophils % Not Reportable Lymphocytes % Not Reportable Monocytes % Not Reportable Eosinophils % Not Reportable Basophils % Not Reportable Absolute Neutrophils Not Reportable Absolute Lymphocytes Not Reportable Absolute Monocytes Not Reportable Absolute Eosinophils Not Reportable Absolute Basophils Not Reportable Sodium 144.4 Potassium 4.6 Chloride 117 H Carbon Dioxide 14 L Anion Gap 13 BUN 14 Creatinine 0.92 Est GFR ( Amer) > 60 Est GFR (Non-Af Amer) > 60 Glucose 145 H Calcium 11.0 H Total Bilirubin 0.5 AST 21 ALT 13 L Alkaline Phosphatase 138 H Total Protein 7.7 Albumin 3.0 L PTH Intact 9.6 L 01/30/18 01/30/18 01/30/18 16:05 16:05 16:05 Creatine Kinase 277 H CK-MB (CK-2) 3.87 Troponin I 0.014 NT-Pro-B Natriuret Pep 1940 H 01/31/18 01/31/18 01/31/18 00:10 05:07 05:07 Creatine Kinase 767 H CK-MB (CK-2) 4.59 H 5.33 H Troponin I 0.016 0.013 NT-Pro-B Natriuret Pep Impressions: Chest X-Ray 02/09/18 00:00 IMPRESSION: NO ACUTE RADIOGRAPHIC FINDING IN THE CHEST. NO SIGNIFICANT CHANGE FROM PRIOR STUDY. Abdomen/Pelvis CT 02/10/18 00:00 IMPRESSION: Multifocal airspace disease worrisome for pneumonia Diffuse bladder distention with mild bilateral hydronephrosis and hydroureter. Findings are worrisome for urinary retention Right permanent central line tip superior vena cava. G tube tip in the gastric antrum NORMAL CT OF THE ABDOMEN AND PELVIS WITHOUT INTRAVENOUS CONTRAST. Chest CT 02/10/18 00:00 IMPRESSION: Multifocal airspace disease worrisome for pneumonia Diffuse bladder distention with mild bilateral hydronephrosis and hydroureter. Findings are worrisome for urinary retention Right permanent central line tip superior vena cava. G tube tip in the gastric antrum NORMAL CT OF THE ABDOMEN AND PELVIS WITHOUT INTRAVENOUS CONTRAST. Head CT 02/15/18 00:00 IMPRESSION: Old infarcts. Microvascular ischemia. No acute imaging findings in the brain. EVIDENCE OF ACUTE STROKE: NO. Head MRI 02/16/18 00:00 IMPRESSION: Multiple old infarcts. No acute findings. EVIDENCE OF ACUTE STROKE: No Assessment & Plan - Diagnosis (1) Septic shock Is this a current diagnosis for this admission?: Yes (2) Hypotension Qualifiers: Hypotension type: unspecified hypotension type Qualified Code(s): I95.9 - Hypotension, unspecified Is this a current diagnosis for this admission?: Yes (3) Urinary tract infection Qualifiers: Urinary tract infection type: site unspecified Hematuria presence: without hematuria Qualified Code(s): N39.0 - Urinary tract infection, site not specified Is this a current diagnosis for this admission?: Yes (4) Metabolic encephalopathy Is this a current diagnosis for this admission?: Yes (5) HIV (human immunodeficiency virus infection) Is this a current diagnosis for this admission?: Yes (6) Atrial fibrillation with RVR Is this a current diagnosis for this admission?: Yes (7) Gram positive septicemia Is this a current diagnosis for this admission?: Yes (8) UTI (urinary tract infection) due to Enterococcus Is this a current diagnosis for this admission?: Yes (9) Enterococcus faecalis infection Is this a current diagnosis for this admission?: Yes (10) Clostridium difficile diarrhea Is this a current diagnosis for this admission?: Yes (11) Hypokalemia Is this a current diagnosis for this admission?: Yes (12) Anemia Qualifiers: Anemia type: unspecified type Qualified Code(s): D64.9 - Anemia, unspecified Is this a current diagnosis for this admission?: Yes (13) Hypernatremia Is this a current diagnosis for this admission?: Yes (14) Multifocal pneumonia Is this a current diagnosis for this admission?: Yes (15) Acute kidney injury Is this a current diagnosis for this admission?: Yes (16) Normal anion gap metabolic acidosis Is this a current diagnosis for this admission?: Yes (17) Hypernatremia Is this a current diagnosis for this admission?: Yes (18) Dehydration Is this a current diagnosis for this admission?: Yes (19) Hospital-acquired pneumonia Is this a current diagnosis for this admission?: Yes (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
[2018-02-16] MEDS: VANCOMYCIN HCL 1,000 MG in DEXTROSE 5%-WATER 250 ML IV SCH (20:38)
[2018-02-16] MEDS: PAROXETINE HCL 20 MG TABLET PEG SCH (20:38)
[2018-02-16 20:59] LABS: VANCOMYCIN,TROUGH 11.8 ug/mL (5.0-20.0)
[2018-02-16] MEDS ORDERED: PAMIDRONATE DISODIUM 90 MG in NORMAL SALINE 1000 ML 1,000 ML IV ONE (21:15)
[2018-02-16] MEDS ORDERED: PAMIDRONATE DISODIUM INJ 30 MG/10 ML VIAL IV PRN (21:15)
[2018-02-16] MEDS: INSULIN LISPRO 100 UNIT/ML 3 ML VIAL SUBCUT PRN (23:08)
[2018-02-16] MEDS: POTASSIUM CHLORIDE 20 MEQ/15 ML UDCUP PEG SCH (23:09)
[2018-02-17] MEDS: VANCOMYCIN HCL INJ 500 MG VIAL PEG SCH ×4 (00:25→18:39)
[2018-02-17] MEDS: DILTIAZEM HCL 60 MG TABLET PEG SCH ×4 (00:25→18:39)
[2018-02-17] MEDS: METRONIDAZOLE 500 MG/NS RTU 100 ML IV SCH ×2 (00:25→06:24)
[2018-02-17] MEDS: CEFEPIME 1 GM/D5W RTU 1 GM/50 ML RTUPB IV SCH ×2 (05:24→18:39)
[2018-02-17 05:27] LABS: ABSOLUTE LYMPHOCYTES (AUTO) 0.8 10^3/uL (0.5-4.7); ABSOLUTE MONOCYTES (AUTO) 0.5 10^3/uL (0.1-1.4); ABSOLUTE NEUT (AUTO) 3.9 10^3/uL (1.7-8.2); BASOPHILS % (AUTO) 0.3 % (0-2); EOSINOPHILS % (AUTO) 0.7 % (0-6); HEMATOCRIT 25.9 % (37.9-51.0); HEMOGLOBIN 8.7 g/dL (13.5-17.0); LYMPHOCYTES % (AUTO) 15.4 % (13-45); MEAN CORPUSCULAR HEMOGLOBIN 30.9 pg (27.0-33.4); MEAN CORPUSCULAR HGB CONC 33.7 g/dL (32.0-36.0); MEAN CORPUSCULAR VOLUME 92 fl (80-97); MONOCYTES % (AUTO) 9.1 % (3-13); RED BLOOD COUNT 2.82 10^6/uL (4.35-5.55); RED CELL DISTRIBUTION WIDTH 17.6 % (11.5-14.0); SEGMENTED NEUTROPHILS % (AUTO) 74.5 % (42-78); TOTAL CELLS COUNTED % (AUTO) 100 %; WHITE BLOOD COUNT 5.3 10^3/uL (4.0-10.5)
[2018-02-17 05:48] LABS: ALANINE AMINOTRANSFERASE 23 U/L (21-72); ALBUMIN 2.6 g/dL (3.5-5.0); ALKALINE PHOSPHATASE 165 U/L (38-126); ANION GAP 9 (5-19); ASPARTATE AMINO TRANSFERASE 17 U/L (17-59); BILIRUBIN,DIRECT 0.3 mg/dL (0.0-0.4); BILIRUBIN,TOTAL 0.3 mg/dL (0.2-1.3); BLOOD UREA NITROGEN 17 mg/dL (7-20); CALCIUM 10.1 mg/dL (8.4-10.2); CARBON DIOXIDE 14 mmol/L (22-30); CHLORIDE 119 mmol/L (98-107); GLUCOSE 163 mg/dL (75-110); POTASSIUM 4.2 mmol/L (3.6-5.0); SODIUM 141.8 mmol/L (137-145); TOTAL PROTEIN 6.9 g/dL (6.3-8.2)
[2018-02-17 06:01] LABS: PLATELET COUNT 70 10^3/uL (150-450)
[2018-02-17] MEDS: INSULIN LISPRO 100 UNIT/ML 3 ML VIAL SUBCUT PRN ×4 (07:51→22:21)
[2018-02-17] MEDS: MEGESTROL ACETATE SUSP 400 MG/10 ML UDCUP PEG SCH (09:46)
[2018-02-17] MEDS: MUPIROCIN 2% OINTMENT 22 GM TP SCH ×2 (09:46→18:40)
[2018-02-17] MEDS: DEXTROSE 5%-WATER 1000 ML 1,000 ML IV PRN ×2 (09:51→22:38)
[2018-02-17] MEDS: RALTEGRAVIR POTASSIUM 400 MG TABLET PEG SCH ×2 (09:54→23:26)
[2018-02-17] MEDS: RITONAVIR 100 MG TABLET PEG SCH (09:54)
--- NOTE | 2018-02-17 17:25 | PDOC PROGRESS REPORT ---
Subjective Progress Note for:: 02/17/18 Subjective:: The patient was seen by the bedside, he responds to verbal stimulus unlike the last few days in the hospital. He has hypercalcemia related to malignancy, he was treated with pamidronate yesterday the calcium is normal today, he has history of head and neck cancer. He has hypercalcemia with suppressed PTH suggesting recurrence of the malignancy. Patient is very acutely ill, is not able to take or eat orally presently on tube feeds, cannot get a PET scan at this time on this patient, the nursing staff is not able to give the patient the antiviral/antiretroviral agent for his HIV because he is not awake enough to swallow and the medication cannot be crushed because they will use Antiviral potency Reason For Visit: SEPSIS Physical Exam Vital Signs: Temp Pulse Resp BP Pulse Ox 97.8 F 96 24 H 133/80 H 100 02/17/18 11:49 02/17/18 11:49 02/17/18 11:49 02/17/18 11:49 02/17/18 11:49 Intake & Output 02/16/18 02/17/18 02/18/18 06:59 06:59 06:59 Intake Total 791 4777 80 Output Total 4075 1500 300 Balance -3284 3277 -220 Weight 55.6 kg 60.7 kg General appearance: PRESENT: no acute distress Eye exam: PRESENT: PERRLA Respiratory exam: PRESENT: clear to auscultation melba Cardiovascular exam: PRESENT: +S1, +S2 GI/Abdominal exam: PRESENT: soft Neurological exam: PRESENT: altered Results Laboratory Results: 02/17/18 04:35 02/17/18 04:35 02/16/18 02/16/18 02/17/18 15:00 20:04 04:35 WBC 5.3 RBC 2.82 L Hgb 8.7 L Hct 25.9 L MCV 92 MCH 30.9 MCHC 33.7 RDW 17.6 H Plt Count 70 L Seg Neutrophils % 74.5 Lymphocytes % 15.4 Monocytes % 9.1 Eosinophils % 0.7 Basophils % 0.3 Absolute Neutrophils 3.9 Absolute Lymphocytes 0.8 Absolute Monocytes 0.5 Absolute Eosinophils 0.0 Absolute Basophils 0.0 Sodium Potassium Chloride Carbon Dioxide Anion Gap BUN Creatinine 0.89 Est GFR ( Amer) > 60 Est GFR (Non-Af Amer) > 60 Glucose Calcium Total Bilirubin AST ALT Alkaline Phosphatase Total Protein Albumin PTH Intact 9.6 L 02/17/18 04:35 WBC RBC Hgb Hct MCV MCH MCHC RDW Plt Count Seg Neutrophils % Lymphocytes % Monocytes % Eosinophils % Basophils % Absolute Neutrophils Absolute Lymphocytes Absolute Monocytes Absolute Eosinophils Absolute Basophils Sodium 141.8 Potassium 4.2 Chloride 119 H Carbon Dioxide 14 L Anion Gap 9 BUN 17 Creatinine 0.81 Est GFR ( Amer) > 60 Est GFR (Non-Af Amer) > 60 Glucose 163 H Calcium 10.1 Total Bilirubin 0.3 AST 17 ALT 23 Alkaline Phosphatase 165 H Total Protein 6.9 Albumin 2.6 L PTH Intact 01/30/18 01/30/18 01/30/18 16:05 16:05 16:05 Creatine Kinase 277 H CK-MB (CK-2) 3.87 Troponin I 0.014 NT-Pro-B Natriuret Pep 1940 H 01/31/18 01/31/18 01/31/18 00:10 05:07 05:07 Creatine Kinase 767 H CK-MB (CK-2) 4.59 H 5.33 H Troponin I 0.016 0.013 NT-Pro-B Natriuret Pep Impressions: Chest X-Ray 02/09/18 00:00 IMPRESSION: NO ACUTE RADIOGRAPHIC FINDING IN THE CHEST. NO SIGNIFICANT CHANGE FROM PRIOR STUDY. Abdomen/Pelvis CT 02/10/18 00:00 IMPRESSION: Multifocal airspace disease worrisome for pneumonia Diffuse bladder distention with mild bilateral hydronephrosis and hydroureter. Findings are worrisome for urinary retention Right permanent central line tip superior vena cava. G tube tip in the gastric antrum NORMAL CT OF THE ABDOMEN AND PELVIS WITHOUT INTRAVENOUS CONTRAST. Chest CT 02/10/18 00:00 IMPRESSION: Multifocal airspace disease worrisome for pneumonia Diffuse bladder distention with mild bilateral hydronephrosis and hydroureter. Findings are worrisome for urinary retention Right permanent central line tip superior vena cava. G tube tip in the gastric antrum NORMAL CT OF THE ABDOMEN AND PELVIS WITHOUT INTRAVENOUS CONTRAST. Head CT 02/15/18 00:00 IMPRESSION: Old infarcts. Microvascular ischemia. No acute imaging findings in the brain. EVIDENCE OF ACUTE STROKE: NO. Head MRI 02/16/18 00:00 IMPRESSION: Multiple old infarcts. No acute findings. EVIDENCE OF ACUTE STROKE: No Assessment & Plan - Diagnosis (1) Septic shock Is this a current diagnosis for this admission?: Yes (2) Hypotension Qualifiers: Hypotension type: unspecified hypotension type Qualified Code(s): I95.9 - Hypotension, unspecified Is this a current diagnosis for this admission?: Yes (3) Urinary tract infection Qualifiers: Urinary tract infection type: site unspecified Hematuria presence: without hematuria Qualified Code(s): N39.0 - Urinary tract infection, site not specified Is this a current diagnosis for this admission?: Yes (4) Metabolic encephalopathy Is this a current diagnosis for this admission?: Yes (5) HIV (human immunodeficiency virus infection) Is this a current diagnosis for this admission?: Yes (6) Atrial fibrillation with RVR Is this a current diagnosis for this admission?: Yes (7) Gram positive septicemia Is this a current diagnosis for this admission?: Yes (8) UTI (urinary tract infection) due to Enterococcus Is this a current diagnosis for this admission?: Yes (9) Enterococcus faecalis infection Is this a current diagnosis for this admission?: Yes (10) Clostridium difficile diarrhea Is this a current diagnosis for this admission?: Yes (11) Hypokalemia Is this a current diagnosis for this admission?: Yes (12) Anemia Qualifiers: Anemia type: unspecified type Qualified Code(s): D64.9 - Anemia, unspecified Is this a current diagnosis for this admission?: Yes (13) Hypernatremia Is this a current diagnosis for this admission?: Yes (14) Multifocal pneumonia Is this a current diagnosis for this admission?: Yes (15) Acute kidney injury Is this a current diagnosis for this admission?: Yes (16) Normal anion gap metabolic acidosis Is this a current diagnosis for this admission?: Yes (17) Hypernatremia Is this a current diagnosis for this admission?: Yes (18) Dehydration Is this a current diagnosis for this admission?: Yes (19) Hospital-acquired pneumonia Is this a current diagnosis for this admission?: Yes (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
--- NOTE | 2018-02-17 19:26 | PDOC PROGRESS REPORT ---
Subjective Progress Note for:: 02/12/18 Subjective:: more alert Reason For Visit: SEPSIS Physical Exam Vital Signs: Temp Pulse Resp BP Pulse Ox 99.8 F 121 H 22 H 136/90 H 96 02/16/18 11:38 02/16/18 11:38 02/16/18 11:38 02/16/18 11:38 02/16/18 11:38 Intake & Output 02/15/18 02/16/18 02/17/18 06:59 06:59 06:59 Intake Total 2306 791 420 Output Total 3250 1735 Balance -944 -5399 420 Weight 62.1 kg 55.6 kg General appearance: PRESENT: no acute distress, disheveled, thin Head exam: PRESENT: atraumatic, normocephalic Eye exam: PRESENT: conjunctiva pale, EOMI. ABSENT: nystagmus, periorbital swelling, scleral icterus Mouth exam: PRESENT: dry mucosa, neck supple, tongue midline Teeth exam: PRESENT: poor dentation Neck exam: ABSENT: carotid bruit, JVD, lymphadenopathy, thyromegaly, tracheal deviation, tracheostomy Respiratory exam: PRESENT: decreased breath sounds, prolonged expiratory phas, rales, rhonchi, symmetrical, unlabored. ABSENT: stridor, tachypnea Cardiovascular exam: PRESENT: irregular rhythm Pulses: PRESENT: normal radial pulses GI/Abdominal exam: PRESENT: diminished bowel sounds, soft Extremities exam: ABSENT: clubbing, joint swelling Musculoskeletal exam: ABSENT: ambulatory, deformity, dislocation Neurological exam: PRESENT: awake, oriented to person. ABSENT: oriented to place, oriented to time, oriented to situation Skin exam: PRESENT: dry, warm Results Laboratory Results: 02/16/18 04:30 02/16/18 04:30 02/16/18 02/16/18 04:30 04:30 WBC 5.0 RBC 3.16 L Hgb 9.8 L Hct 29.3 L MCV 93 MCH 31.1 MCHC 33.6 RDW 17.8 H Plt Count 68 L Seg Neutrophils % Not Reportable Lymphocytes % Not Reportable Monocytes % Not Reportable Eosinophils % Not Reportable Basophils % Not Reportable Absolute Neutrophils Not Reportable Absolute Lymphocytes Not Reportable Absolute Monocytes Not Reportable Absolute Eosinophils Not Reportable Absolute Basophils Not Reportable Sodium 144.4 Potassium 4.6 Chloride 117 H Carbon Dioxide 14 L Anion Gap 13 BUN 14 Creatinine 0.92 Est GFR ( Amer) > 60 Est GFR (Non-Af Amer) > 60 Glucose 145 H Calcium 11.0 H Total Bilirubin 0.5 AST 21 ALT 13 L Alkaline Phosphatase 138 H Total Protein 7.7 Albumin 3.0 L 01/30/18 01/30/18 01/30/18 16:05 16:05 16:05 Creatine Kinase 277 H CK-MB (CK-2) 3.87 Troponin I 0.014 NT-Pro-B Natriuret Pep 1940 H 01/31/18 01/31/18 01/31/18 00:10 05:07 05:07 Creatine Kinase 767 H CK-MB (CK-2) 4.59 H 5.33 H Troponin I 0.016 0.013 NT-Pro-B Natriuret Pep Impressions: Chest X-Ray 02/09/18 00:00 IMPRESSION: NO ACUTE RADIOGRAPHIC FINDING IN THE CHEST. NO SIGNIFICANT CHANGE FROM PRIOR STUDY. Abdomen/Pelvis CT 02/10/18 00:00 IMPRESSION: Multifocal airspace disease worrisome for pneumonia Diffuse bladder distention with mild bilateral hydronephrosis and hydroureter. Findings are worrisome for urinary retention Right permanent central line tip superior vena cava. G tube tip in the gastric antrum NORMAL CT OF THE ABDOMEN AND PELVIS WITHOUT INTRAVENOUS CONTRAST. Chest CT 02/10/18 00:00 IMPRESSION: Multifocal airspace disease worrisome for pneumonia Diffuse bladder distention with mild bilateral hydronephrosis and hydroureter. Findings are worrisome for urinary retention Right permanent central line tip superior vena cava. G tube tip in the gastric antrum NORMAL CT OF THE ABDOMEN AND PELVIS WITHOUT INTRAVENOUS CONTRAST. Head CT 02/15/18 00:00 IMPRESSION: Old infarcts. Microvascular ischemia. No acute imaging findings in the brain. EVIDENCE OF ACUTE STROKE: NO. Head MRI 02/16/18 00:00 IMPRESSION: Multiple old infarcts. No acute findings. EVIDENCE OF ACUTE STROKE: No Assessment & Plan - Diagnosis (1) HIV (human immunodeficiency virus infection) Is this a current diagnosis for this admission?: Yes Plan: cd4/cd8 low (2) Hospital-acquired pneumonia Is this a current diagnosis for this admission?: Yes Plan: Patient lives in a healthcare facility;Right lower lobe (4) Aspiration into airway Qualifiers: Encounter type: initial encounter Qualified Code(s): T17.908A - Unspecified foreign body in respiratory tract, part unspecified causing other injury, initial encounter Is this a current diagnosis for this admission?: Yes Plan: continue current treatment (5) Clostridium difficile diarrhea Is this a current diagnosis for this admission?: Yes Plan: Labs- All tests 24 hr 02/11/18 00:35 C. difficile Tox (PCR) POSITIVE
--- NOTE | 2018-02-17 19:29 | PDOC PROGRESS REPORT ---
Subjective Progress Note for:: 02/13/18 Subjective:: decrease responsiveness Reason For Visit: SEPSIS Physical Exam Vital Signs: Temp Pulse Resp BP Pulse Ox 99.8 F 121 H 22 H 136/90 H 96 02/16/18 11:38 02/16/18 11:38 02/16/18 11:38 02/16/18 11:38 02/16/18 11:38 Intake & Output 02/15/18 02/16/18 02/17/18 06:59 06:59 06:59 Intake Total 2306 791 420 Output Total 3250 4075 Balance -944 -4942 420 Weight 62.1 kg 55.6 kg General appearance: PRESENT: no acute distress, disheveled, thin. ABSENT: cooperative Head exam: PRESENT: atraumatic, normocephalic Eye exam: PRESENT: conjunctiva pale, EOMI. ABSENT: nystagmus, periorbital swelling, scleral icterus Mouth exam: PRESENT: dry mucosa, neck supple, tongue midline Neck exam: ABSENT: carotid bruit, JVD, lymphadenopathy, thyromegaly, tracheal deviation, tracheostomy Respiratory exam: PRESENT: decreased breath sounds, prolonged expiratory phas, rales, rhonchi, symmetrical, unlabored. ABSENT: retraction, stridor, tachypnea Cardiovascular exam: PRESENT: RRR, +S1, +S2 Pulses: PRESENT: normal radial pulses GI/Abdominal exam: PRESENT: diminished bowel sounds, soft Extremities exam: ABSENT: clubbing, joint swelling Musculoskeletal exam: ABSENT: ambulatory, deformity, dislocation Neurological exam: ABSENT: awake Skin exam: PRESENT: dry, warm Results Laboratory Results: 02/16/18 04:30 02/16/18 04:30 02/16/18 02/16/18 04:30 04:30 WBC 5.0 RBC 3.16 L Hgb 9.8 L Hct 29.3 L MCV 93 MCH 31.1 MCHC 33.6 RDW 17.8 H Plt Count 68 L Seg Neutrophils % Not Reportable Lymphocytes % Not Reportable Monocytes % Not Reportable Eosinophils % Not Reportable Basophils % Not Reportable Absolute Neutrophils Not Reportable Absolute Lymphocytes Not Reportable Absolute Monocytes Not Reportable Absolute Eosinophils Not Reportable Absolute Basophils Not Reportable Sodium 144.4 Potassium 4.6 Chloride 117 H Carbon Dioxide 14 L Anion Gap 13 BUN 14 Creatinine 0.92 Est GFR ( Amer) > 60 Est GFR (Non-Af Amer) > 60 Glucose 145 H Calcium 11.0 H Total Bilirubin 0.5 AST 21 ALT 13 L Alkaline Phosphatase 138 H Total Protein 7.7 Albumin 3.0 L 01/30/18 01/30/18 01/30/18 16:05 16:05 16:05 Creatine Kinase 277 H CK-MB (CK-2) 3.87 Troponin I 0.014 NT-Pro-B Natriuret Pep 1940 H 01/31/18 01/31/18 01/31/18 00:10 05:07 05:07 Creatine Kinase 767 H CK-MB (CK-2) 4.59 H 5.33 H Troponin I 0.016 0.013 NT-Pro-B Natriuret Pep Impressions: Chest X-Ray 02/09/18 00:00 IMPRESSION: NO ACUTE RADIOGRAPHIC FINDING IN THE CHEST. NO SIGNIFICANT CHANGE FROM PRIOR STUDY. Abdomen/Pelvis CT 02/10/18 00:00 IMPRESSION: Multifocal airspace disease worrisome for pneumonia Diffuse bladder distention with mild bilateral hydronephrosis and hydroureter. Findings are worrisome for urinary retention Right permanent central line tip superior vena cava. G tube tip in the gastric antrum NORMAL CT OF THE ABDOMEN AND PELVIS WITHOUT INTRAVENOUS CONTRAST. Chest CT 02/10/18 00:00 IMPRESSION: Multifocal airspace disease worrisome for pneumonia Diffuse bladder distention with mild bilateral hydronephrosis and hydroureter. Findings are worrisome for urinary retention Right permanent central line tip superior vena cava. G tube tip in the gastric antrum NORMAL CT OF THE ABDOMEN AND PELVIS WITHOUT INTRAVENOUS CONTRAST. Head CT 02/15/18 00:00 IMPRESSION: Old infarcts. Microvascular ischemia. No acute imaging findings in the brain. EVIDENCE OF ACUTE STROKE: NO. Head MRI 02/16/18 00:00 IMPRESSION: Multiple old infarcts. No acute findings. EVIDENCE OF ACUTE STROKE: No Assessment & Plan - Diagnosis (1) HIV (human immunodeficiency virus infection) Is this a current diagnosis for this admission?: Yes Plan: cd4/cd8 low (2) Hospital-acquired pneumonia Is this a current diagnosis for this admission?: Yes Plan: Patient lives in a healthcare facility;Right lower lobe (4) Aspiration into airway Qualifiers: Encounter type: initial encounter Qualified Code(s): T17.908A - Unspecified foreign body in respiratory tract, part unspecified causing other injury, initial encounter Is this a current diagnosis for this admission?: Yes Plan: continue current treatment (5) Clostridium difficile diarrhea Is this a current diagnosis for this admission?: Yes Plan: Labs- All tests 24 hr 02/11/18 00:35 C. difficile Tox (PCR) POSITIVE
--- NOTE | 2018-02-17 19:31 | PDOC PROGRESS REPORT ---
Subjective Progress Note for:: 02/14/18 Subjective:: decrease responsiveness Reason For Visit: SEPSIS Physical Exam Vital Signs: Temp Pulse Resp BP Pulse Ox 99.8 F 121 H 22 H 136/90 H 96 02/16/18 11:38 02/16/18 11:38 02/16/18 11:38 02/16/18 11:38 02/16/18 11:38 Intake & Output 02/15/18 02/16/18 02/17/18 06:59 06:59 06:59 Intake Total 2306 791 420 Output Total 3250 8185 Balance -947 -4632 420 Weight 62.1 kg 55.6 kg General appearance: PRESENT: no acute distress, disheveled, thin Head exam: PRESENT: atraumatic, normocephalic Eye exam: PRESENT: conjunctiva pale. ABSENT: nystagmus, periorbital swelling, scleral icterus Mouth exam: PRESENT: dry mucosa, neck supple, tongue midline Neck exam: ABSENT: carotid bruit, JVD, lymphadenopathy, thyromegaly, tracheal deviation, tracheostomy Respiratory exam: PRESENT: decreased breath sounds, prolonged expiratory phas, rales, rhonchi, symmetrical, unlabored. ABSENT: retraction, stridor, tachypnea Cardiovascular exam: PRESENT: RRR, +S1, +S2 Pulses: PRESENT: normal radial pulses GI/Abdominal exam: PRESENT: diminished bowel sounds Extremities exam: ABSENT: clubbing, joint swelling Musculoskeletal exam: ABSENT: ambulatory, deformity, dislocation Neurological exam: ABSENT: awake, oriented to person Skin exam: PRESENT: dry, warm Results Laboratory Results: 02/16/18 04:30 02/16/18 04:30 02/16/18 02/16/18 04:30 04:30 WBC 5.0 RBC 3.16 L Hgb 9.8 L Hct 29.3 L MCV 93 MCH 31.1 MCHC 33.6 RDW 17.8 H Plt Count 68 L Seg Neutrophils % Not Reportable Lymphocytes % Not Reportable Monocytes % Not Reportable Eosinophils % Not Reportable Basophils % Not Reportable Absolute Neutrophils Not Reportable Absolute Lymphocytes Not Reportable Absolute Monocytes Not Reportable Absolute Eosinophils Not Reportable Absolute Basophils Not Reportable Sodium 144.4 Potassium 4.6 Chloride 117 H Carbon Dioxide 14 L Anion Gap 13 BUN 14 Creatinine 0.92 Est GFR ( Amer) > 60 Est GFR (Non-Af Amer) > 60 Glucose 145 H Calcium 11.0 H Total Bilirubin 0.5 AST 21 ALT 13 L Alkaline Phosphatase 138 H Total Protein 7.7 Albumin 3.0 L 01/30/18 01/30/18 01/30/18 16:05 16:05 16:05 Creatine Kinase 277 H CK-MB (CK-2) 3.87 Troponin I 0.014 NT-Pro-B Natriuret Pep 1940 H 01/31/18 01/31/18 01/31/18 00:10 05:07 05:07 Creatine Kinase 767 H CK-MB (CK-2) 4.59 H 5.33 H Troponin I 0.016 0.013 NT-Pro-B Natriuret Pep Impressions: Chest X-Ray 02/09/18 00:00 IMPRESSION: NO ACUTE RADIOGRAPHIC FINDING IN THE CHEST. NO SIGNIFICANT CHANGE FROM PRIOR STUDY. Abdomen/Pelvis CT 02/10/18 00:00 IMPRESSION: Multifocal airspace disease worrisome for pneumonia Diffuse bladder distention with mild bilateral hydronephrosis and hydroureter. Findings are worrisome for urinary retention Right permanent central line tip superior vena cava. G tube tip in the gastric antrum NORMAL CT OF THE ABDOMEN AND PELVIS WITHOUT INTRAVENOUS CONTRAST. Chest CT 02/10/18 00:00 IMPRESSION: Multifocal airspace disease worrisome for pneumonia Diffuse bladder distention with mild bilateral hydronephrosis and hydroureter. Findings are worrisome for urinary retention Right permanent central line tip superior vena cava. G tube tip in the gastric antrum NORMAL CT OF THE ABDOMEN AND PELVIS WITHOUT INTRAVENOUS CONTRAST. Head CT 02/15/18 00:00 IMPRESSION: Old infarcts. Microvascular ischemia. No acute imaging findings in the brain. EVIDENCE OF ACUTE STROKE: NO. Head MRI 02/16/18 00:00 IMPRESSION: Multiple old infarcts. No acute findings. EVIDENCE OF ACUTE STROKE: No Assessment & Plan - Diagnosis (1) HIV (human immunodeficiency virus infection) Is this a current diagnosis for this admission?: Yes Plan: cd4/cd8 low (2) Hospital-acquired pneumonia Is this a current diagnosis for this admission?: Yes Plan: Patient lives in a healthcare facility;Right lower lobe (4) Aspiration into airway Qualifiers: Encounter type: initial encounter Qualified Code(s): T17.908A - Unspecified foreign body in respiratory tract, part unspecified causing other injury, initial encounter Is this a current diagnosis for this admission?: Yes Plan: continue current treatment (5) Clostridium difficile diarrhea Is this a current diagnosis for this admission?: Yes Plan: Labs- All tests 24 hr 02/11/18 00:35 C. difficile Tox (PCR) POSITIVE
--- NOTE | 2018-02-17 19:32 | PDOC PROGRESS REPORT ---
Subjective Progress Note for:: 02/15/18 Subjective:: decrease responsiveness Reason For Visit: SEPSIS Physical Exam Vital Signs: Temp Pulse Resp BP Pulse Ox 99.8 F 121 H 22 H 136/90 H 96 02/16/18 11:38 02/16/18 11:38 02/16/18 11:38 02/16/18 11:38 02/16/18 11:38 Intake & Output 02/15/18 02/16/18 02/17/18 06:59 06:59 06:59 Intake Total 2306 791 420 Output Total 3250 4075 Balance -944 -9498 420 Weight 62.1 kg 55.6 kg General appearance: PRESENT: no acute distress, disheveled, thin. ABSENT: cooperative Head exam: PRESENT: atraumatic, normocephalic Eye exam: PRESENT: conjunctiva pale. ABSENT: nystagmus, periorbital swelling, scleral icterus Mouth exam: PRESENT: dry mucosa, neck supple, tongue midline Neck exam: ABSENT: carotid bruit, JVD, lymphadenopathy, thyromegaly, tracheal deviation, tracheostomy Respiratory exam: PRESENT: decreased breath sounds, prolonged expiratory phas, rales, rhonchi, symmetrical, unlabored. ABSENT: retraction, stridor, tachypnea Cardiovascular exam: PRESENT: RRR, +S1, +S2 Pulses: PRESENT: normal radial pulses GI/Abdominal exam: PRESENT: diminished bowel sounds Extremities exam: ABSENT: clubbing, joint swelling Musculoskeletal exam: ABSENT: ambulatory, deformity, dislocation Neurological exam: PRESENT: awake, oriented to person. ABSENT: oriented to place, oriented to time, oriented to situation Skin exam: PRESENT: dry, warm Results Laboratory Results: 02/16/18 04:30 02/16/18 04:30 02/16/18 02/16/18 04:30 04:30 WBC 5.0 RBC 3.16 L Hgb 9.8 L Hct 29.3 L MCV 93 MCH 31.1 MCHC 33.6 RDW 17.8 H Plt Count 68 L Seg Neutrophils % Not Reportable Lymphocytes % Not Reportable Monocytes % Not Reportable Eosinophils % Not Reportable Basophils % Not Reportable Absolute Neutrophils Not Reportable Absolute Lymphocytes Not Reportable Absolute Monocytes Not Reportable Absolute Eosinophils Not Reportable Absolute Basophils Not Reportable Sodium 144.4 Potassium 4.6 Chloride 117 H Carbon Dioxide 14 L Anion Gap 13 BUN 14 Creatinine 0.92 Est GFR ( Amer) > 60 Est GFR (Non-Af Amer) > 60 Glucose 145 H Calcium 11.0 H Total Bilirubin 0.5 AST 21 ALT 13 L Alkaline Phosphatase 138 H Total Protein 7.7 Albumin 3.0 L 01/30/18 01/30/18 01/30/18 16:05 16:05 16:05 Creatine Kinase 277 H CK-MB (CK-2) 3.87 Troponin I 0.014 NT-Pro-B Natriuret Pep 1940 H 01/31/18 01/31/18 01/31/18 00:10 05:07 05:07 Creatine Kinase 767 H CK-MB (CK-2) 4.59 H 5.33 H Troponin I 0.016 0.013 NT-Pro-B Natriuret Pep Impressions: Chest X-Ray 02/09/18 00:00 IMPRESSION: NO ACUTE RADIOGRAPHIC FINDING IN THE CHEST. NO SIGNIFICANT CHANGE FROM PRIOR STUDY. Abdomen/Pelvis CT 02/10/18 00:00 IMPRESSION: Multifocal airspace disease worrisome for pneumonia Diffuse bladder distention with mild bilateral hydronephrosis and hydroureter. Findings are worrisome for urinary retention Right permanent central line tip superior vena cava. G tube tip in the gastric antrum NORMAL CT OF THE ABDOMEN AND PELVIS WITHOUT INTRAVENOUS CONTRAST. Chest CT 02/10/18 00:00 IMPRESSION: Multifocal airspace disease worrisome for pneumonia Diffuse bladder distention with mild bilateral hydronephrosis and hydroureter. Findings are worrisome for urinary retention Right permanent central line tip superior vena cava. G tube tip in the gastric antrum NORMAL CT OF THE ABDOMEN AND PELVIS WITHOUT INTRAVENOUS CONTRAST. Head CT 02/15/18 00:00 IMPRESSION: Old infarcts. Microvascular ischemia. No acute imaging findings in the brain. EVIDENCE OF ACUTE STROKE: NO. Head MRI 02/16/18 00:00 IMPRESSION: Multiple old infarcts. No acute findings. EVIDENCE OF ACUTE STROKE: No Assessment & Plan - Diagnosis (1) HIV (human immunodeficiency virus infection) Is this a current diagnosis for this admission?: Yes Plan: cd4/cd8 low (2) Hospital-acquired pneumonia Is this a current diagnosis for this admission?: Yes Plan: Patient lives in a healthcare facility;Right lower lobe (4) Aspiration into airway Qualifiers: Encounter type: initial encounter Qualified Code(s): T17.908A - Unspecified foreign body in respiratory tract, part unspecified causing other injury, initial encounter Is this a current diagnosis for this admission?: Yes Plan: continue current treatment (5) Clostridium difficile diarrhea Is this a current diagnosis for this admission?: Yes Plan: Labs- All tests 24 hr 02/11/18 00:35 C. difficile Tox (PCR) POSITIVE
--- NOTE | 2018-02-17 19:36 | PDOC PROGRESS REPORT ---
Subjective Progress Note for:: 02/16/18 Subjective:: decrease responsiveness Reason For Visit: SEPSIS Physical Exam Vital Signs: Temp Pulse Resp BP Pulse Ox 99.8 F 121 H 22 H 136/90 H 96 02/16/18 11:38 02/16/18 11:38 02/16/18 11:38 02/16/18 11:38 02/16/18 11:38 Intake & Output 02/15/18 02/16/18 02/17/18 06:59 06:59 06:59 Intake Total 2306 791 420 Output Total 3250 4075 Balance -944 -2848 420 Weight 62.1 kg 55.6 kg General appearance: PRESENT: no acute distress, disheveled, thin. ABSENT: cooperative Head exam: PRESENT: atraumatic, normocephalic Eye exam: PRESENT: conjunctiva pale. ABSENT: nystagmus, periorbital swelling Mouth exam: PRESENT: dry mucosa, neck supple, tongue midline Neck exam: ABSENT: carotid bruit, JVD, lymphadenopathy, thyromegaly, tracheal deviation, tracheostomy Respiratory exam: PRESENT: decreased breath sounds, prolonged expiratory phas, rales, rhonchi, symmetrical, unlabored. ABSENT: retraction, stridor, tachypnea Cardiovascular exam: PRESENT: RRR, +S1, +S2 Pulses: PRESENT: normal radial pulses GI/Abdominal exam: PRESENT: diminished bowel sounds Extremities exam: ABSENT: calf tenderness, clubbing, joint swelling Musculoskeletal exam: ABSENT: ambulatory, deformity, dislocation Neurological exam: PRESENT: awake, oriented to person. ABSENT: oriented to place, oriented to time, oriented to situation Skin exam: PRESENT: dry, warm Results Laboratory Results: 02/16/18 04:30 02/16/18 04:30 02/16/18 02/16/18 04:30 04:30 WBC 5.0 RBC 3.16 L Hgb 9.8 L Hct 29.3 L MCV 93 MCH 31.1 MCHC 33.6 RDW 17.8 H Plt Count 68 L Seg Neutrophils % Not Reportable Lymphocytes % Not Reportable Monocytes % Not Reportable Eosinophils % Not Reportable Basophils % Not Reportable Absolute Neutrophils Not Reportable Absolute Lymphocytes Not Reportable Absolute Monocytes Not Reportable Absolute Eosinophils Not Reportable Absolute Basophils Not Reportable Sodium 144.4 Potassium 4.6 Chloride 117 H Carbon Dioxide 14 L Anion Gap 13 BUN 14 Creatinine 0.92 Est GFR ( Amer) > 60 Est GFR (Non-Af Amer) > 60 Glucose 145 H Calcium 11.0 H Total Bilirubin 0.5 AST 21 ALT 13 L Alkaline Phosphatase 138 H Total Protein 7.7 Albumin 3.0 L 01/30/18 01/30/18 01/30/18 16:05 16:05 16:05 Creatine Kinase 277 H CK-MB (CK-2) 3.87 Troponin I 0.014 NT-Pro-B Natriuret Pep 1940 H 01/31/18 01/31/18 01/31/18 00:10 05:07 05:07 Creatine Kinase 767 H CK-MB (CK-2) 4.59 H 5.33 H Troponin I 0.016 0.013 NT-Pro-B Natriuret Pep Impressions: Chest X-Ray 02/09/18 00:00 IMPRESSION: NO ACUTE RADIOGRAPHIC FINDING IN THE CHEST. NO SIGNIFICANT CHANGE FROM PRIOR STUDY. Abdomen/Pelvis CT 02/10/18 00:00 IMPRESSION: Multifocal airspace disease worrisome for pneumonia Diffuse bladder distention with mild bilateral hydronephrosis and hydroureter. Findings are worrisome for urinary retention Right permanent central line tip superior vena cava. G tube tip in the gastric antrum NORMAL CT OF THE ABDOMEN AND PELVIS WITHOUT INTRAVENOUS CONTRAST. Chest CT 02/10/18 00:00 IMPRESSION: Multifocal airspace disease worrisome for pneumonia Diffuse bladder distention with mild bilateral hydronephrosis and hydroureter. Findings are worrisome for urinary retention Right permanent central line tip superior vena cava. G tube tip in the gastric antrum NORMAL CT OF THE ABDOMEN AND PELVIS WITHOUT INTRAVENOUS CONTRAST. Head CT 02/15/18 00:00 IMPRESSION: Old infarcts. Microvascular ischemia. No acute imaging findings in the brain. EVIDENCE OF ACUTE STROKE: NO. Head MRI 02/16/18 00:00 IMPRESSION: Multiple old infarcts. No acute findings. EVIDENCE OF ACUTE STROKE: No Assessment & Plan - Diagnosis (1) HIV (human immunodeficiency virus infection) Is this a current diagnosis for this admission?: Yes Plan: cd4/cd8 low (2) Hospital-acquired pneumonia Is this a current diagnosis for this admission?: Yes Plan: Patient lives in a healthcare facility;Right lower lobe (4) Aspiration into airway Qualifiers: Encounter type: initial encounter Qualified Code(s): T17.908A - Unspecified foreign body in respiratory tract, part unspecified causing other injury, initial encounter Is this a current diagnosis for this admission?: Yes Plan: continue current treatment (5) Clostridium difficile diarrhea Is this a current diagnosis for this admission?: Yes Plan: Labs- All tests 24 hr 02/11/18 00:35 C. difficile Tox (PCR) POSITIVE
[2018-02-17] MEDS: VANCOMYCIN HCL 1,000 MG in DEXTROSE 5%-WATER 250 ML IV SCH (20:47)
[2018-02-17] MEDS: PAROXETINE HCL 20 MG TABLET PEG SCH (22:31)
[2018-02-17] MEDS: POTASSIUM CHLORIDE 20 MEQ/15 ML UDCUP PEG SCH (22:32)
[2018-02-18] MEDS: VANCOMYCIN HCL INJ 500 MG VIAL PEG SCH ×4 (00:40→18:42)
[2018-02-18] MEDS: DILTIAZEM HCL 60 MG TABLET PEG SCH ×4 (00:40→18:42)
[2018-02-18] MEDS: CEFEPIME 1 GM/D5W RTU 1 GM/50 ML RTUPB IV SCH ×2 (05:35→18:42)
[2018-02-18 06:51] LABS: ALANINE AMINOTRANSFERASE 16 U/L (21-72); ALBUMIN 2.6 g/dL (3.5-5.0); ALKALINE PHOSPHATASE 188 U/L (38-126); ANION GAP 10 (5-19); ASPARTATE AMINO TRANSFERASE 17 U/L (17-59); BILIRUBIN,DIRECT 0.3 mg/dL (0.0-0.4); BILIRUBIN,TOTAL 0.3 mg/dL (0.2-1.3); BLOOD UREA NITROGEN 13 mg/dL (7-20); CALCIUM 9.9 mg/dL (8.4-10.2); CARBON DIOXIDE 15 mmol/L (22-30); CHLORIDE 111 mmol/L (98-107); GLUCOSE 224 mg/dL (75-110); POTASSIUM 4.3 mmol/L (3.6-5.0); SODIUM 135.6 mmol/L (137-145)
[2018-02-18 06:53] LABS: HEMATOCRIT 26.6 % (37.9-51.0); HEMOGLOBIN 8.9 g/dL (13.5-17.0); MEAN CORPUSCULAR HEMOGLOBIN 30.7 pg (27.0-33.4); MEAN CORPUSCULAR HGB CONC 33.4 g/dL (32.0-36.0); MEAN CORPUSCULAR VOLUME 92 fl (80-97); RED BLOOD COUNT 2.89 10^6/uL (4.35-5.55); RED CELL DISTRIBUTION WIDTH 17.7 % (11.5-14.0); WHITE BLOOD COUNT 4.4 10^3/uL (4.0-10.5)
[2018-02-18 06:59] LABS: ABSOLUTE LYMPHOCYTES# (MANUAL) 0.6 10^3/uL (0.5-4.7); ABSOLUTE MONOCYTES # (MANUAL) 0.5 10^3/uL (0.1-1.4); ABSOLUTE NEUTROPHILS# (MANUAL) 3.3 10^3/uL (1.7-8.2); BAND NEUTROPHILS % (MANUAL) 2 % (3-5); BASOPHILS % (MANUAL) 0 % (0-2); EOSINOPHILS % (MANUAL) 1 % (0-6); LYMPHOCYTES % (MANUAL) 13 % (13-45); MONOCYTES % (MANUAL) 12 % (3-13); SEGMENTED NEUTROPHILS % (MAN) 72 % (42-78); TOTAL CELLS COUNTED 100
[2018-02-18 07:05] LABS: TOXIC GRANULATION SLIGHT; TOXIC VACUOLATION PRESENT
[2018-02-18 07:06] LABS: ANISOCYTOSIS 2+; HYPOCHROMASIA 1+; POIKILOCYTOSIS 1+; POLYCHROMASIA SLIGHT; TARGET CELLS 1+
[2018-02-18 07:07] LABS: PLATELET CLUMPS PRESENT; PLATELET COMMENT DECREASED; PLATELET COUNT 69 10^3/uL (150-450)
[2018-02-18] MEDS: INSULIN LISPRO 100 UNIT/ML 3 ML VIAL SUBCUT PRN ×4 (07:57→23:45)
[2018-02-18] MEDS: MEGESTROL ACETATE SUSP 400 MG/10 ML UDCUP PEG SCH (10:01)
[2018-02-18] MEDS: DEXTROSE 5%-WATER 1000 ML 1,000 ML IV PRN ×2 (10:01→21:31)
[2018-02-18] MEDS: MUPIROCIN 2% OINTMENT 22 GM TP SCH ×2 (10:01→18:42)
[2018-02-18] MEDS: RALTEGRAVIR POTASSIUM 400 MG TABLET PEG SCH ×2 (10:09→21:48)
[2018-02-18] MEDS: RITONAVIR 100 MG TABLET PEG SCH (10:09)
--- NOTE | 2018-02-18 14:31 | PDOC PROGRESS REPORT ---
Subjective Progress Note for:: 02/18/18 Subjective:: Patient was seen by the bedside, he is more alert today, he was admitted primarily for the management of septic shock from enterococcus faecalis septicemia associated with UTI. This was complicated with Clostridium difficile diarrhea, hypercalcemia of malignancy, electrolyte derangements. Reason For Visit: SEPSIS Physical Exam Vital Signs: Temp Pulse Resp BP Pulse Ox 98.0 F 91 24 H 133/80 H 98 02/18/18 07:58 02/18/18 07:58 02/18/18 07:58 02/18/18 07:58 02/18/18 10:44 Intake & Output 02/17/18 02/18/18 02/19/18 06:59 06:59 06:59 Intake Total 4777 3201 Output Total 1500 2200 700 Balance 3277 1001 -700 Weight 60.7 kg 59.4 kg General appearance: PRESENT: mild distress Eye exam: PRESENT: PERRLA Respiratory exam: PRESENT: clear to auscultation melba Cardiovascular exam: PRESENT: +S1, +S2 GI/Abdominal exam: PRESENT: soft Neurological exam: PRESENT: alert Results Laboratory Results: 02/18/18 05:40 02/18/18 05:40 02/18/18 02/18/18 05:40 05:40 WBC 4.4 RBC 2.89 L Hgb 8.9 L Hct 26.6 L MCV 92 MCH 30.7 MCHC 33.4 RDW 17.7 H Plt Count 69 L Seg Neutrophils % Not Reportable Lymphocytes % Not Reportable Monocytes % Not Reportable Eosinophils % Not Reportable Basophils % Not Reportable Absolute Neutrophils Not Reportable Absolute Lymphocytes Not Reportable Absolute Monocytes Not Reportable Absolute Eosinophils Not Reportable Absolute Basophils Not Reportable Sodium 135.6 L Potassium 4.3 Chloride 111 H Carbon Dioxide 15 L Anion Gap 10 BUN 13 Creatinine 0.61 Est GFR ( Amer) > 60 Est GFR (Non-Af Amer) > 60 Glucose 224 H Calcium 9.9 Total Bilirubin 0.3 AST 17 ALT 16 L Alkaline Phosphatase 188 H Total Protein 7.0 Albumin 2.6 L 01/30/18 01/30/18 01/30/18 16:05 16:05 16:05 Creatine Kinase 277 H CK-MB (CK-2) 3.87 Troponin I 0.014 NT-Pro-B Natriuret Pep 1940 H 03/01/31/18 01/31/18 00:10 05:07 05:07 Creatine Kinase 767 H CK-MB (CK-2) 4.59 H 5.33 H Troponin I 0.016 0.013 NT-Pro-B Natriuret Pep Impressions: Chest X-Ray 02/09/18 00:00 IMPRESSION: NO ACUTE RADIOGRAPHIC FINDING IN THE CHEST. NO SIGNIFICANT CHANGE FROM PRIOR STUDY. Abdomen/Pelvis CT 02/10/18 00:00 IMPRESSION: Multifocal airspace disease worrisome for pneumonia Diffuse bladder distention with mild bilateral hydronephrosis and hydroureter. Findings are worrisome for urinary retention Right permanent central line tip superior vena cava. G tube tip in the gastric antrum NORMAL CT OF THE ABDOMEN AND PELVIS WITHOUT INTRAVENOUS CONTRAST. Chest CT 02/10/18 00:00 IMPRESSION: Multifocal airspace disease worrisome for pneumonia Diffuse bladder distention with mild bilateral hydronephrosis and hydroureter. Findings are worrisome for urinary retention Right permanent central line tip superior vena cava. G tube tip in the gastric antrum NORMAL CT OF THE ABDOMEN AND PELVIS WITHOUT INTRAVENOUS CONTRAST. Head CT 02/15/18 00:00 IMPRESSION: Old infarcts. Microvascular ischemia. No acute imaging findings in the brain. EVIDENCE OF ACUTE STROKE: NO. Head MRI 02/16/18 00:00 IMPRESSION: Multiple old infarcts. No acute findings. EVIDENCE OF ACUTE STROKE: No Assessment & Plan - Diagnosis (1) Septic shock Is this a current diagnosis for this admission?: Yes (2) Hypotension Qualifiers: Hypotension type: unspecified hypotension type Qualified Code(s): I95.9 - Hypotension, unspecified Is this a current diagnosis for this admission?: Yes (3) Urinary tract infection Qualifiers: Urinary tract infection type: site unspecified Hematuria presence: without hematuria Qualified Code(s): N39.0 - Urinary tract infection, site not specified Is this a current diagnosis for this admission?: Yes (4) Metabolic encephalopathy Is this a current diagnosis for this admission?: Yes (5) HIV (human immunodeficiency virus infection) Is this a current diagnosis for this admission?: Yes (6) Atrial fibrillation with RVR Is this a current diagnosis for this admission?: Yes (7) Gram positive septicemia Is this a current diagnosis for this admission?: Yes (8) UTI (urinary tract infection) due to Enterococcus Is this a current diagnosis for this admission?: Yes (9) Enterococcus faecalis infection Is this a current diagnosis for this admission?: Yes (10) Clostridium difficile diarrhea Is this a current diagnosis for this admission?: Yes (11) Hypokalemia Is this a current diagnosis for this admission?: Yes (12) Anemia Qualifiers: Anemia type: unspecified type Qualified Code(s): D64.9 - Anemia, unspecified Is this a current diagnosis for this admission?: Yes (13) Hypernatremia Is this a current diagnosis for this admission?: Yes (14) Multifocal pneumonia Is this a current diagnosis for this admission?: Yes (15) Acute kidney injury Is this a current diagnosis for this admission?: Yes (16) Normal anion gap metabolic acidosis Is this a current diagnosis for this admission?: Yes (17) Hypernatremia Is this a current diagnosis for this admission?: Yes (18) Dehydration Is this a current diagnosis for this admission?: Yes (19) Hospital-acquired pneumonia Is this a current diagnosis for this admission?: Yes (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
[2018-02-18] MEDS: VANCOMYCIN HCL 1,000 MG in DEXTROSE 5%-WATER 250 ML IV SCH (21:29)
[2018-02-18] MEDS: PAROXETINE HCL 20 MG TABLET PEG SCH (21:29)
[2018-02-18] MEDS: POTASSIUM CHLORIDE 20 MEQ/15 ML UDCUP PEG SCH (21:32)
[2018-02-19] MEDS: DILTIAZEM HCL 60 MG TABLET PEG SCH ×4 (00:52→19:15)
[2018-02-19] MEDS: VANCOMYCIN HCL INJ 500 MG VIAL PEG SCH ×4 (00:52→18:56)
[2018-02-19 04:50] LABS: ABSOLUTE LYMPHOCYTES (AUTO) 0.8 10^3/uL (0.5-4.7); ABSOLUTE MONOCYTES (AUTO) 0.5 10^3/uL (0.1-1.4); ABSOLUTE NEUT (AUTO) 2.9 10^3/uL (1.7-8.2); BASOPHILS % (AUTO) 0.2 % (0-2); EOSINOPHILS % (AUTO) 1.1 % (0-6); HEMATOCRIT 26.4 % (37.9-51.0); LYMPHOCYTES % (AUTO) 18.2 % (13-45); MEAN CORPUSCULAR HGB CONC 34.2 g/dL (32.0-36.0); MEAN CORPUSCULAR VOLUME 91 fl (80-97); MONOCYTES % (AUTO) 12.9 % (3-13); RED BLOOD COUNT 2.91 10^6/uL (4.35-5.55); RED CELL DISTRIBUTION WIDTH 17.4 % (11.5-14.0); SEGMENTED NEUTROPHILS % (AUTO) 67.6 % (42-78); TOTAL CELLS COUNTED % (AUTO) 100 %; WHITE BLOOD COUNT 4.2 10^3/uL (4.0-10.5)
[2018-02-19 05:06] LABS: ALANINE AMINOTRANSFERASE 15 U/L (21-72); ALBUMIN 2.7 g/dL (3.5-5.0); ALKALINE PHOSPHATASE 211 U/L (38-126); ANION GAP 9 (5-19); ASPARTATE AMINO TRANSFERASE 21 U/L (17-59); BILIRUBIN,DIRECT 0.3 mg/dL (0.0-0.4); BILIRUBIN,TOTAL 0.3 mg/dL (0.2-1.3); BLOOD UREA NITROGEN 11 mg/dL (7-20); CALCIUM 9.4 mg/dL (8.4-10.2); CARBON DIOXIDE 15 mmol/L (22-30); CHLORIDE 105 mmol/L (98-107); GLUCOSE 204 mg/dL (75-110); POTASSIUM 4.3 mmol/L (3.6-5.0); SODIUM 129.3 mmol/L (137-145); TOTAL PROTEIN 7.1 g/dL (6.3-8.2)
[2018-02-19] MEDS: CEFEPIME 1 GM/D5W RTU 1 GM/50 ML RTUPB IV SCH ×2 (05:14→18:56)
[2018-02-19 05:26] LABS: PLATELET COUNT 82 10^3/uL (150-450)
[2018-02-19] MEDS: INSULIN LISPRO 100 UNIT/ML 3 ML VIAL SUBCUT PRN ×3 (08:03→18:57)
[2018-02-19] MEDS: MEGESTROL ACETATE SUSP 400 MG/10 ML UDCUP PEG SCH (10:14)
[2018-02-19] MEDS: DEXTROSE 5%-WATER 1000 ML 1,000 ML IV PRN (10:14)
[2018-02-19] MEDS: MUPIROCIN 2% OINTMENT 22 GM TP SCH ×2 (10:15→18:56)
[2018-02-19] MEDS: RITONAVIR 100 MG TABLET PEG SCH (10:27)
[2018-02-19] MEDS: RALTEGRAVIR POTASSIUM 400 MG TABLET PEG SCH ×2 (10:27→21:55)
--- NOTE | 2018-02-19 15:11 | PDOC PROGRESS REPORT ---
Subjective Progress Note for:: 02/19/18 Subjective:: Patient was seen by the bedside, still altered mental status,though improved Reason For Visit: SEPSIS Physical Exam Vital Signs: Temp Pulse Resp BP Pulse Ox 98.4 F 107 H 16 132/81 H 100 02/19/18 12:28 02/19/18 12:28 02/19/18 12:28 02/19/18 12:28 02/19/18 12:28 Intake & Output 02/18/18 02/19/18 02/20/18 06:59 06:59 06:59 Intake Total 3201 3724 120 Output Total 2200 3150 575 Balance 1001 574 -455 Weight 59.4 kg 61.8 kg General appearance: PRESENT: no acute distress Eye exam: PRESENT: PERRLA Respiratory exam: PRESENT: clear to auscultation melba Cardiovascular exam: PRESENT: +S1, +S2 GI/Abdominal exam: PRESENT: soft Neurological exam: PRESENT: alert, altered Results Laboratory Results: 02/19/18 04:35 02/19/18 04:35 02/19/18 02/19/18 04:35 04:35 WBC 4.2 RBC 2.91 L Hgb 9.0 L Hct 26.4 L MCV 91 MCH 31.0 MCHC 34.2 RDW 17.4 H Plt Count 82 L Seg Neutrophils % 67.6 Lymphocytes % 18.2 Monocytes % 12.9 Eosinophils % 1.1 Basophils % 0.2 Absolute Neutrophils 2.9 Absolute Lymphocytes 0.8 Absolute Monocytes 0.5 Absolute Eosinophils 0.0 Absolute Basophils 0.0 Sodium 129.3 L Potassium 4.3 Chloride 105 Carbon Dioxide 15 L Anion Gap 9 BUN 11 Creatinine 0.52 Est GFR ( Amer) > 60 Est GFR (Non-Af Amer) > 60 Glucose 204 H Calcium 9.4 Total Bilirubin 0.3 AST 21 ALT 15 L Alkaline Phosphatase 211 H Total Protein 7.1 Albumin 2.7 L 01/30/18 01/30/18 01/30/18 16:05 16:05 16:05 Creatine Kinase 277 H CK-MB (CK-2) 3.87 Troponin I 0.014 NT-Pro-B Natriuret Pep 1940 H 01/31/18 01/31/18 01/31/18 00:10 05:07 05:07 Creatine Kinase 767 H CK-MB (CK-2) 4.59 H 5.33 H Troponin I 0.016 0.013 NT-Pro-B Natriuret Pep Impressions: Chest X-Ray 02/09/18 00:00 IMPRESSION: NO ACUTE RADIOGRAPHIC FINDING IN THE CHEST. NO SIGNIFICANT CHANGE FROM PRIOR STUDY. Abdomen/Pelvis CT 02/10/18 00:00 IMPRESSION: Multifocal airspace disease worrisome for pneumonia Diffuse bladder distention with mild bilateral hydronephrosis and hydroureter. Findings are worrisome for urinary retention Right permanent central line tip superior vena cava. G tube tip in the gastric antrum NORMAL CT OF THE ABDOMEN AND PELVIS WITHOUT INTRAVENOUS CONTRAST. Chest CT 02/10/18 00:00 IMPRESSION: Multifocal airspace disease worrisome for pneumonia Diffuse bladder distention with mild bilateral hydronephrosis and hydroureter. Findings are worrisome for urinary retention Right permanent central line tip superior vena cava. G tube tip in the gastric antrum NORMAL CT OF THE ABDOMEN AND PELVIS WITHOUT INTRAVENOUS CONTRAST. Head CT 02/15/18 00:00 IMPRESSION: Old infarcts. Microvascular ischemia. No acute imaging findings in the brain. EVIDENCE OF ACUTE STROKE: NO. Head MRI 02/16/18 00:00 IMPRESSION: Multiple old infarcts. No acute findings. EVIDENCE OF ACUTE STROKE: No Assessment & Plan - Diagnosis (1) Septic shock Is this a current diagnosis for this admission?: Yes (2) Hypotension Qualifiers: Hypotension type: unspecified hypotension type Qualified Code(s): I95.9 - Hypotension, unspecified Is this a current diagnosis for this admission?: Yes (3) Urinary tract infection Qualifiers: Urinary tract infection type: site unspecified Hematuria presence: without hematuria Qualified Code(s): N39.0 - Urinary tract infection, site not specified Is this a current diagnosis for this admission?: Yes (4) Metabolic encephalopathy Is this a current diagnosis for this admission?: Yes (5) HIV (human immunodeficiency virus infection) Is this a current diagnosis for this admission?: Yes (6) Atrial fibrillation with RVR Is this a current diagnosis for this admission?: Yes (7) Gram positive septicemia Is this a current diagnosis for this admission?: Yes (8) UTI (urinary tract infection) due to Enterococcus Is this a current diagnosis for this admission?: Yes (9) Enterococcus faecalis infection Is this a current diagnosis for this admission?: Yes (10) Clostridium difficile diarrhea Is this a current diagnosis for this admission?: Yes Plan: DC p.o. vancomycin (11) Hypokalemia Is this a current diagnosis for this admission?: Yes (12) Anemia Qualifiers: Anemia type: unspecified type Qualified Code(s): D64.9 - Anemia, unspecified Is this a current diagnosis for this admission?: Yes (13) Hypernatremia Is this a current diagnosis for this admission?: Yes (14) Multifocal pneumonia Is this a current diagnosis for this admission?: Yes (15) Acute kidney injury Is this a current diagnosis for this admission?: Yes (16) Normal anion gap metabolic acidosis Is this a current diagnosis for this admission?: Yes (17) Hypernatremia Is this a current diagnosis for this admission?: Yes (18) Dehydration Is this a current diagnosis for this admission?: Yes (19) Hospital-acquired pneumonia Is this a current diagnosis for this admission?: Yes (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
--- NOTE | 2018-02-19 15:30 | PDOC PROGRESS REPORT ---
Subjective Progress Note for:: 02/19/18 Subjective:: lethargic Reason For Visit: SEPSIS Physical Exam Vital Signs: Temp Pulse Resp BP Pulse Ox 98.4 F 107 H 16 132/81 H 100 02/19/18 12:28 02/19/18 12:28 02/19/18 12:28 02/19/18 12:28 02/19/18 12:28 Intake & Output 02/18/18 02/19/18 02/20/18 06:59 06:59 06:59 Intake Total 3201 3724 120 Output Total 2200 3150 575 Balance 1001 574 -455 Weight 59.4 kg 61.8 kg General appearance: PRESENT: disheveled, thin. ABSENT: cooperative Head exam: PRESENT: atraumatic, normocephalic Eye exam: PRESENT: conjunctiva pale. ABSENT: nystagmus, periorbital swelling, scleral icterus Mouth exam: PRESENT: dry mucosa, neck supple, tongue midline Neck exam: ABSENT: carotid bruit, JVD, lymphadenopathy, thyromegaly, tracheal deviation, tracheostomy Respiratory exam: PRESENT: decreased breath sounds, prolonged expiratory phas, rales, rhonchi, symmetrical, unlabored. ABSENT: retraction, stridor, tachypnea Cardiovascular exam: PRESENT: RRR, +S1, +S2 Pulses: PRESENT: normal radial pulses GI/Abdominal exam: PRESENT: diminished bowel sounds, soft, other - PEG Extremities exam: ABSENT: clubbing, joint swelling, pedal edema Musculoskeletal exam: ABSENT: deformity, dislocation Neurological exam: PRESENT: awake. ABSENT: oriented to person, oriented to place Skin exam: PRESENT: dry, warm Results Laboratory Results: 02/19/18 04:35 02/19/18 04:35 02/19/18 02/19/18 04:35 04:35 WBC 4.2 RBC 2.91 L Hgb 9.0 L Hct 26.4 L MCV 91 MCH 31.0 MCHC 34.2 RDW 17.4 H Plt Count 82 L Seg Neutrophils % 67.6 Lymphocytes % 18.2 Monocytes % 12.9 Eosinophils % 1.1 Basophils % 0.2 Absolute Neutrophils 2.9 Absolute Lymphocytes 0.8 Absolute Monocytes 0.5 Absolute Eosinophils 0.0 Absolute Basophils 0.0 Sodium 129.3 L Potassium 4.3 Chloride 105 Carbon Dioxide 15 L Anion Gap 9 BUN 11 Creatinine 0.52 Est GFR ( Amer) > 60 Est GFR (Non-Af Amer) > 60 Glucose 204 H Calcium 9.4 Total Bilirubin 0.3 AST 21 ALT 15 L Alkaline Phosphatase 211 H Total Protein 7.1 Albumin 2.7 L 01/30/18 01/30/18 01/30/18 16:05 16:05 16:05 Creatine Kinase 277 H CK-MB (CK-2) 3.87 Troponin I 0.014 NT-Pro-B Natriuret Pep 1940 H 01/31/18 01/31/18 01/31/18 00:10 05:07 05:07 Creatine Kinase 767 H CK-MB (CK-2) 4.59 H 5.33 H Troponin I 0.016 0.013 NT-Pro-B Natriuret Pep Impressions: Chest X-Ray 02/09/18 00:00 IMPRESSION: NO ACUTE RADIOGRAPHIC FINDING IN THE CHEST. NO SIGNIFICANT CHANGE FROM PRIOR STUDY. Abdomen/Pelvis CT 02/10/18 00:00 IMPRESSION: Multifocal airspace disease worrisome for pneumonia Diffuse bladder distention with mild bilateral hydronephrosis and hydroureter. Findings are worrisome for urinary retention Right permanent central line tip superior vena cava. G tube tip in the gastric antrum NORMAL CT OF THE ABDOMEN AND PELVIS WITHOUT INTRAVENOUS CONTRAST. Chest CT 02/10/18 00:00 IMPRESSION: Multifocal airspace disease worrisome for pneumonia Diffuse bladder distention with mild bilateral hydronephrosis and hydroureter. Findings are worrisome for urinary retention Right permanent central line tip superior vena cava. G tube tip in the gastric antrum NORMAL CT OF THE ABDOMEN AND PELVIS WITHOUT INTRAVENOUS CONTRAST. Head CT 02/15/18 00:00 IMPRESSION: Old infarcts. Microvascular ischemia. No acute imaging findings in the brain. EVIDENCE OF ACUTE STROKE: NO. Head MRI 02/16/18 00:00 IMPRESSION: Multiple old infarcts. No acute findings. EVIDENCE OF ACUTE STROKE: No Assessment & Plan - Diagnosis (1) HIV (human immunodeficiency virus infection) Is this a current diagnosis for this admission?: Yes Plan: cd4/cd8 low (2) Hospital-acquired pneumonia Is this a current diagnosis for this admission?: Yes Plan: Patient lives in a healthcare facility;Right lower lobe (4) Aspiration into airway Qualifiers: Encounter type: initial encounter Qualified Code(s): T17.908A - Unspecified foreign body in respiratory tract, part unspecified causing other injury, initial encounter Is this a current diagnosis for this admission?: Yes Plan: continue current treatment (5) Clostridium difficile diarrhea Is this a current diagnosis for this admission?: Yes Plan: Labs- All tests 24 hr 02/11/18 00:35 C. difficile Tox (PCR) POSITIVE
[2018-02-19] MEDS: DEXTROSE 5%-NORMAL SALINE 1,000 ML IV PRN (18:55)
[2018-02-19] MEDS: VANCOMYCIN HCL 1,000 MG in DEXTROSE 5%-WATER 250 ML IV SCH (20:30)
[2018-02-19] MEDS: PAROXETINE HCL 20 MG TABLET PEG SCH (21:54)
[2018-02-19] MEDS: POTASSIUM CHLORIDE 20 MEQ/15 ML UDCUP PEG SCH (21:54)
[2018-02-20] MEDS: VANCOMYCIN HCL INJ 500 MG VIAL PEG SCH (00:12)
[2018-02-20] MEDS: DILTIAZEM HCL 60 MG TABLET PEG SCH ×4 (00:13→18:09)
[2018-02-20] MEDS: INSULIN LISPRO 100 UNIT/ML 3 ML VIAL SUBCUT PRN ×5 (00:17→22:05)
[2018-02-20 04:52] LABS: ABSOLUTE LYMPHOCYTES (AUTO) 0.7 10^3/uL (0.5-4.7); ABSOLUTE MONOCYTES (AUTO) 0.7 10^3/uL (0.1-1.4); ABSOLUTE NEUT (AUTO) 2.8 10^3/uL (1.7-8.2); BASOPHILS % (AUTO) 0.3 % (0-2); EOSINOPHILS % (AUTO) 0.7 % (0-6); HEMATOCRIT 27.2 % (37.9-51.0); HEMOGLOBIN 9.3 g/dL (13.5-17.0); LYMPHOCYTES % (AUTO) 16.4 % (13-45); MEAN CORPUSCULAR HEMOGLOBIN 31.3 pg (27.0-33.4); MEAN CORPUSCULAR HGB CONC 34.1 g/dL (32.0-36.0); MEAN CORPUSCULAR VOLUME 92 fl (80-97); MONOCYTES % (AUTO) 17.5 % (3-13); RED BLOOD COUNT 2.96 10^6/uL (4.35-5.55); RED CELL DISTRIBUTION WIDTH 17.4 % (11.5-14.0); SEGMENTED NEUTROPHILS % (AUTO) 65.1 % (42-78); TOTAL CELLS COUNTED % (AUTO) 100 %; WHITE BLOOD COUNT 4.2 10^3/uL (4.0-10.5)
[2018-02-20 05:09] LABS: ALANINE AMINOTRANSFERASE 16 U/L (21-72); ALBUMIN 2.7 g/dL (3.5-5.0); ALKALINE PHOSPHATASE 192 U/L (38-126); ANION GAP 7 (5-19); ASPARTATE AMINO TRANSFERASE 24 U/L (17-59); BILIRUBIN,DIRECT 0.3 mg/dL (0.0-0.4); BILIRUBIN,TOTAL 0.3 mg/dL (0.2-1.3); BLOOD UREA NITROGEN 9 mg/dL (7-20); CALCIUM 8.9 mg/dL (8.4-10.2); CARBON DIOXIDE 15 mmol/L (22-30); CHLORIDE 106 mmol/L (98-107); GLUCOSE 205 mg/dL (75-110); POTASSIUM 4.2 mmol/L (3.6-5.0); TOTAL PROTEIN 7.3 g/dL (6.3-8.2)
[2018-02-20] MEDS: CEFEPIME 1 GM/D5W RTU 1 GM/50 ML RTUPB IV SCH ×2 (05:09→18:09)
[2018-02-20 05:15] LABS: PLATELET COUNT 98 10^3/uL (150-450)
[2018-02-20] MEDS: DEXTROSE 5%-NORMAL SALINE 1,000 ML IV PRN ×2 (08:30→18:49)
[2018-02-20] MEDS: MEGESTROL ACETATE SUSP 400 MG/10 ML UDCUP PEG SCH (10:13)
[2018-02-20] MEDS: MUPIROCIN 2% OINTMENT 22 GM TP SCH ×2 (10:13→18:09)
[2018-02-20] MEDS: RITONAVIR 100 MG TABLET PEG SCH (10:13)
[2018-02-20] MEDS: RALTEGRAVIR POTASSIUM 400 MG TABLET PEG SCH ×2 (10:15→22:07)
[2018-02-20] MEDS ORDERED: NORVIR PEG ONE (16:30)
--- NOTE | 2018-02-20 20:42 | PDOC PROGRESS REPORT ---
Subjective Progress Note for:: 02/20/18 Subjective:: Patient was seen by the bedside the sensorium continues to fluctuate from lucidity to confusion and full-blown unresponsiveness. The parents anti-HIV medication has not been consistently administered because of the fact that some of the medication could not be crushed and patient could not swallow safely, the medication was just got converted to liquid hopefully this be administered. He was admitted initially for septic shock associated with Enterococcus faecalis septicemia complicated with C. difficile colitis and aspiration pneumonia Reason For Visit: SEPSIS Physical Exam Vital Signs: Temp Pulse Resp BP Pulse Ox 98.2 F 109 H 22 H 125/78 100 02/20/18 19:29 02/20/18 19:29 02/20/18 19:29 02/20/18 19:29 02/20/18 19:29 Intake & Output 02/19/18 02/20/18 02/21/18 06:59 06:59 06:59 Intake Total 3724 3899 1870 Output Total 3150 3675 1000 Balance 574 224 870 Weight 61.8 kg 59.5 kg General appearance: PRESENT: no acute distress Eye exam: PRESENT: PERRLA Respiratory exam: PRESENT: clear to auscultation melba Cardiovascular exam: PRESENT: +S1, +S2 GI/Abdominal exam: PRESENT: soft Neurological exam: PRESENT: altered Results Laboratory Results: 02/20/18 04:25 02/20/18 04:25 02/20/18 02/20/18 04:25 04:25 WBC 4.2 RBC 2.96 L Hgb 9.3 L Hct 27.2 L MCV 92 MCH 31.3 MCHC 34.1 RDW 17.4 H Plt Count 98 L Seg Neutrophils % 65.1 Lymphocytes % 16.4 Monocytes % 17.5 H Eosinophils % 0.7 Basophils % 0.3 Absolute Neutrophils 2.8 Absolute Lymphocytes 0.7 Absolute Monocytes 0.7 Absolute Eosinophils 0.0 Absolute Basophils 0.0 Sodium 128.0 L Potassium 4.2 Chloride 106 Carbon Dioxide 15 L Anion Gap 7 BUN 9 Creatinine 0.46 L Est GFR ( Amer) > 60 Est GFR (Non-Af Amer) > 60 Glucose 205 H Calcium 8.9 Total Bilirubin 0.3 AST 24 ALT 16 L Alkaline Phosphatase 192 H Total Protein 7.3 Albumin 2.7 L 01/30/18 01/30/18 01/30/18 16:05 16:05 16:05 Creatine Kinase 277 H CK-MB (CK-2) 3.87 Troponin I 0.014 NT-Pro-B Natriuret Pep 1940 H 01/31/18 01/31/18 01/31/18 00:10 05:07 05:07 Creatine Kinase 767 H CK-MB (CK-2) 4.59 H 5.33 H Troponin I 0.016 0.013 NT-Pro-B Natriuret Pep Impressions: Chest X-Ray 02/09/18 00:00 IMPRESSION: NO ACUTE RADIOGRAPHIC FINDING IN THE CHEST. NO SIGNIFICANT CHANGE FROM PRIOR STUDY. Abdomen/Pelvis CT 02/10/18 00:00 IMPRESSION: Multifocal airspace disease worrisome for pneumonia Diffuse bladder distention with mild bilateral hydronephrosis and hydroureter. Findings are worrisome for urinary retention Right permanent central line tip superior vena cava. G tube tip in the gastric antrum NORMAL CT OF THE ABDOMEN AND PELVIS WITHOUT INTRAVENOUS CONTRAST. Chest CT 02/10/18 00:00 IMPRESSION: Multifocal airspace disease worrisome for pneumonia Diffuse bladder distention with mild bilateral hydronephrosis and hydroureter. Findings are worrisome for urinary retention Right permanent central line tip superior vena cava. G tube tip in the gastric antrum NORMAL CT OF THE ABDOMEN AND PELVIS WITHOUT INTRAVENOUS CONTRAST. Head CT 02/15/18 00:00 IMPRESSION: Old infarcts. Microvascular ischemia. No acute imaging findings in the brain. EVIDENCE OF ACUTE STROKE: NO. Head MRI 02/16/18 00:00 IMPRESSION: Multiple old infarcts. No acute findings. EVIDENCE OF ACUTE STROKE: No Assessment & Plan - Diagnosis (1) Septic shock Is this a current diagnosis for this admission?: Yes (2) Hypotension Qualifiers: Hypotension type: unspecified hypotension type Qualified Code(s): I95.9 - Hypotension, unspecified Is this a current diagnosis for this admission?: Yes (3) Urinary tract infection Qualifiers: Urinary tract infection type: site unspecified Hematuria presence: without hematuria Qualified Code(s): N39.0 - Urinary tract infection, site not specified Is this a current diagnosis for this admission?: Yes (4) Metabolic encephalopathy Is this a current diagnosis for this admission?: Yes (5) HIV (human immunodeficiency virus infection) Is this a current diagnosis for this admission?: Yes (6) Atrial fibrillation with RVR Is this a current diagnosis for this admission?: Yes (7) Gram positive septicemia Is this a current diagnosis for this admission?: Yes (8) UTI (urinary tract infection) due to Enterococcus Is this a current diagnosis for this admission?: Yes (9) Enterococcus faecalis infection Is this a current diagnosis for this admission?: Yes (10) Clostridium difficile diarrhea Is this a current diagnosis for this admission?: Yes (11) Hypokalemia Is this a current diagnosis for this admission?: Yes (12) Anemia Qualifiers: Anemia type: unspecified type Qualified Code(s): D64.9 - Anemia, unspecified Is this a current diagnosis for this admission?: Yes (13) Hypernatremia Is this a current diagnosis for this admission?: Yes (14) Multifocal pneumonia Is this a current diagnosis for this admission?: Yes (15) Acute kidney injury Is this a current diagnosis for this admission?: Yes (16) Normal anion gap metabolic acidosis Is this a current diagnosis for this admission?: Yes (17) Hypernatremia Is this a current diagnosis for this admission?: Yes (18) Dehydration Is this a current diagnosis for this admission?: Yes (19) Hospital-acquired pneumonia Is this a current diagnosis for this admission?: Yes (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
[2018-02-20] MEDS: VANCOMYCIN HCL 1,000 MG in DEXTROSE 5%-WATER 250 ML IV SCH (20:50)
[2018-02-20] MEDS: PAROXETINE HCL 20 MG TABLET PEG SCH (22:05)
[2018-02-20] MEDS: POTASSIUM CHLORIDE 20 MEQ/15 ML UDCUP PEG SCH (22:05)
[2018-02-21] MEDS: DILTIAZEM HCL 60 MG TABLET PEG SCH ×5 (00:33→23:19)
[2018-02-21 04:23] LABS: ABSOLUTE LYMPHOCYTES (AUTO) 0.8 10^3/uL (0.5-4.7); ABSOLUTE MONOCYTES (AUTO) 0.9 10^3/uL (0.1-1.4); ABSOLUTE NEUT (AUTO) 3.1 10^3/uL (1.7-8.2); BASOPHILS % (AUTO) 0.2 % (0-2); EOSINOPHILS % (AUTO) 0.3 % (0-6); HEMATOCRIT 26.2 % (37.9-51.0); HEMOGLOBIN 8.9 g/dL (13.5-17.0); LYMPHOCYTES % (AUTO) 15.9 % (13-45); MEAN CORPUSCULAR HGB CONC 33.8 g/dL (32.0-36.0); MEAN CORPUSCULAR VOLUME 92 fl (80-97); MONOCYTES % (AUTO) 18.2 % (3-13); PLATELET COUNT 119 10^3/uL (150-450); RED BLOOD COUNT 2.86 10^6/uL (4.35-5.55); RED CELL DISTRIBUTION WIDTH 17.6 % (11.5-14.0); SEGMENTED NEUTROPHILS % (AUTO) 65.4 % (42-78); TOTAL CELLS COUNTED % (AUTO) 100 %; WHITE BLOOD COUNT 4.8 10^3/uL (4.0-10.5)
[2018-02-21 04:39] LABS: ALANINE AMINOTRANSFERASE 20 U/L (21-72); ALBUMIN 2.9 g/dL (3.5-5.0); ALKALINE PHOSPHATASE 213 U/L (38-126); ANION GAP 11 (5-19); ASPARTATE AMINO TRANSFERASE 23 U/L (17-59); BILIRUBIN,DIRECT 0.2 mg/dL (0.0-0.4); BILIRUBIN,TOTAL 0.2 mg/dL (0.2-1.3); BLOOD UREA NITROGEN 10 mg/dL (7-20); CALCIUM 9.2 mg/dL (8.4-10.2); CARBON DIOXIDE 14 mmol/L (22-30); CHLORIDE 108 mmol/L (98-107); GLUCOSE 186 mg/dL (75-110); POTASSIUM 4.4 mmol/L (3.6-5.0); SODIUM 132.5 mmol/L (137-145); TOTAL PROTEIN 7.2 g/dL (6.3-8.2)
[2018-02-21] MEDS: CEFEPIME 1 GM/D5W RTU 1 GM/50 ML RTUPB IV SCH ×2 (05:40→17:08)
[2018-02-21] MEDS: DEXTROSE 5%-NORMAL SALINE 1,000 ML IV PRN ×2 (05:58→17:08)
[2018-02-21] MEDS: RALTEGRAVIR POTASSIUM 400 MG TABLET PEG SCH ×2 (09:50→22:54)
[2018-02-21] MEDS: MUPIROCIN 2% OINTMENT 22 GM TP SCH ×2 (09:50→17:08)
[2018-02-21] MEDS: MEGESTROL ACETATE SUSP 400 MG/10 ML UDCUP PEG SCH (09:50)
[2018-02-21] MEDS: NORVIR PEG SCH (10:00)
[2018-02-21] MEDS: INSULIN LISPRO 100 UNIT/ML 3 ML VIAL SUBCUT PRN ×2 (11:45→23:19)
--- NOTE | 2018-02-21 16:14 | PDOC PROGRESS REPORT ---
Subjective Progress Note for:: 02/21/18 Subjective:: Patient was seen by the bedside, he is more awake alert and responsive today compared to yesterday the serum sodium is improved Reason For Visit: SEPSIS Physical Exam Vital Signs: Temp Pulse Resp BP Pulse Ox 97.4 F 104 H 18 130/81 H 100 02/21/18 11:48 02/21/18 14:00 02/21/18 11:48 02/21/18 11:48 02/21/18 11:48 Intake & Output 02/20/18 02/21/18 02/22/18 06:59 06:59 06:59 Intake Total 3899 3992 220 Output Total 3675 3350 800 Balance 224 642 -580 Weight 59.5 kg 62.1 kg General appearance: PRESENT: no acute distress Head exam: PRESENT: atraumatic, normocephalic Ear exam: PRESENT: normal external ear exam Mouth exam: PRESENT: moist, tongue midline Neck exam: PRESENT: full ROM Respiratory exam: PRESENT: rhonchi Cardiovascular exam: PRESENT: RRR, +S1, +S2 Pulses: PRESENT: normal dorsalis pedis pul, +2 pedal pulses bilateral Vascular exam: PRESENT: normal capillary refill GI/Abdominal exam: PRESENT: normal bowel sounds, soft Rectal exam: PRESENT: deferred Neurological exam: PRESENT: alert, CN II-XII grossly intact. ABSENT: motor sensory deficit Psychiatric exam: PRESENT: appropriate affect, normal mood Skin exam: PRESENT: dry, intact, warm. ABSENT: cyanosis, rash Results Laboratory Results: 02/21/18 04:05 02/21/18 04:05 02/21/18 02/21/18 04:05 04:05 WBC 4.8 RBC 2.86 L Hgb 8.9 L Hct 26.2 L MCV 92 MCH 31.0 MCHC 33.8 RDW 17.6 H Plt Count 119 L Seg Neutrophils % 65.4 Lymphocytes % 15.9 Monocytes % 18.2 H Eosinophils % 0.3 Basophils % 0.2 Absolute Neutrophils 3.1 Absolute Lymphocytes 0.8 Absolute Monocytes 0.9 Absolute Eosinophils 0.0 Absolute Basophils 0.0 Sodium 132.5 L Potassium 4.4 Chloride 108 H Carbon Dioxide 14 L Anion Gap 11 BUN 10 Creatinine 0.43 L Est GFR ( Amer) > 60 Est GFR (Non-Af Amer) > 60 Glucose 186 H Calcium 9.2 Total Bilirubin 0.2 AST 23 ALT 20 L Alkaline Phosphatase 213 H Total Protein 7.2 Albumin 2.9 L 01/30/18 01/30/18 01/30/18 16:05 16:05 16:05 Creatine Kinase 277 H CK-MB (CK-2) 3.87 Troponin I 0.014 NT-Pro-B Natriuret Pep 1940 H 01/31/18 01/31/18 01/31/18 00:10 05:07 05:07 Creatine Kinase 767 H CK-MB (CK-2) 4.59 H 5.33 H Troponin I 0.016 0.013 NT-Pro-B Natriuret Pep Impressions: Chest X-Ray 02/09/18 00:00 IMPRESSION: NO ACUTE RADIOGRAPHIC FINDING IN THE CHEST. NO SIGNIFICANT CHANGE FROM PRIOR STUDY. Abdomen/Pelvis CT 02/10/18 00:00 IMPRESSION: Multifocal airspace disease worrisome for pneumonia Diffuse bladder distention with mild bilateral hydronephrosis and hydroureter. Findings are worrisome for urinary retention Right permanent central line tip superior vena cava. G tube tip in the gastric antrum NORMAL CT OF THE ABDOMEN AND PELVIS WITHOUT INTRAVENOUS CONTRAST. Chest CT 02/10/18 00:00 IMPRESSION: Multifocal airspace disease worrisome for pneumonia Diffuse bladder distention with mild bilateral hydronephrosis and hydroureter. Findings are worrisome for urinary retention Right permanent central line tip superior vena cava. G tube tip in the gastric antrum NORMAL CT OF THE ABDOMEN AND PELVIS WITHOUT INTRAVENOUS CONTRAST. Head CT 02/15/18 00:00 IMPRESSION: Old infarcts. Microvascular ischemia. No acute imaging findings in the brain. EVIDENCE OF ACUTE STROKE: NO. Head MRI 02/16/18 00:00 IMPRESSION: Multiple old infarcts. No acute findings. EVIDENCE OF ACUTE STROKE: No Assessment & Plan - Diagnosis (1) Septic shock Is this a current diagnosis for this admission?: Yes (2) Hypotension Qualifiers: Hypotension type: unspecified hypotension type Qualified Code(s): I95.9 - Hypotension, unspecified Is this a current diagnosis for this admission?: Yes (3) Urinary tract infection Qualifiers: Urinary tract infection type: site unspecified Hematuria presence: without hematuria Qualified Code(s): N39.0 - Urinary tract infection, site not specified Is this a current diagnosis for this admission?: Yes (4) Metabolic encephalopathy Is this a current diagnosis for this admission?: Yes (5) HIV (human immunodeficiency virus infection) Is this a current diagnosis for this admission?: Yes (6) Atrial fibrillation with RVR Is this a current diagnosis for this admission?: Yes (7) Gram positive septicemia Is this a current diagnosis for this admission?: Yes (8) UTI (urinary tract infection) due to Enterococcus Is this a current diagnosis for this admission?: Yes (9) Enterococcus faecalis infection Is this a current diagnosis for this admission?: Yes (10) Clostridium difficile diarrhea Is this a current diagnosis for this admission?: Yes (11) Hypokalemia Is this a current diagnosis for this admission?: Yes (12) Anemia Qualifiers: Anemia type: unspecified type Qualified Code(s): D64.9 - Anemia, unspecified Is this a current diagnosis for this admission?: Yes (13) Hypernatremia Is this a current diagnosis for this admission?: Yes (14) Multifocal pneumonia Is this a current diagnosis for this admission?: Yes (15) Acute kidney injury Is this a current diagnosis for this admission?: Yes (16) Normal anion gap metabolic acidosis Is this a current diagnosis for this admission?: Yes (17) Hypernatremia Is this a current diagnosis for this admission?: Yes (18) Dehydration Is this a current diagnosis for this admission?: Yes (19) Hospital-acquired pneumonia Is this a current diagnosis for this admission?: Yes (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
--- NOTE | 2018-02-21 17:11 | RADIOLOGY REPORT (SQ) ---
EXAM DESCRIPTION: CHEST 2 VIEWS COMPLETED DATE/TIME: 02/21/2018 4:53 pm REASON FOR STUDY: pneumonia COMPARISON: 02/09/2018. EXAM PARAMETERS: NUMBER OF VIEWS: two views TECHNIQUE: Digital Frontal and Lateral radiographic views of the chest acquired. RADIATION DOSE: NA LIMITATIONS: none FINDINGS: LUNGS AND PLEURA: No opacities, masses or pneumothorax. No pleural effusion. MEDIASTINUM AND HILAR STRUCTURES: No masses or contour abnormalities. HEART AND VASCULAR STRUCTURES: Heart normal size. No evidence for failure. BONES: No acute findings. HARDWARE: Vascular access port. OTHER: No other significant finding. IMPRESSION: NO ACUTE RADIOGRAPHIC FINDING IN THE CHEST. TECHNICAL DOCUMENTATION: JOB ID: [id number] [employer]- All Rights Reserved Reading location - IP/workstation name: [email or web address]
[2018-02-21] MEDS: VANCOMYCIN HCL 1,000 MG in DEXTROSE 5%-WATER 250 ML IV SCH (19:59)
[2018-02-21] MEDS: PAROXETINE HCL 20 MG TABLET PEG SCH (20:02)
[2018-02-21 20:16] LABS: VANCOMYCIN,TROUGH 7.9 ug/mL (5.0-20.0)
[2018-02-21] MEDS: POTASSIUM CHLORIDE 20 MEQ/15 ML UDCUP PEG SCH (22:54)
[2018-02-22] MEDS: CEFEPIME 1 GM/D5W RTU 1 GM/50 ML RTUPB IV SCH ×2 (05:26→17:39)
[2018-02-22] MEDS: DILTIAZEM HCL 60 MG TABLET PEG SCH ×4 (05:27→23:11)
[2018-02-22] MEDS: INSULIN LISPRO 100 UNIT/ML 3 ML VIAL SUBCUT PRN (05:55)
[2018-02-22 06:13] LABS: ABSOLUTE LYMPHOCYTES (AUTO) 0.9 10^3/uL (0.5-4.7); ABSOLUTE NEUT (AUTO) 3.4 10^3/uL (1.7-8.2); BASOPHILS % (AUTO) 0.3 % (0-2); EOSINOPHILS % (AUTO) 0.5 % (0-6); HEMATOCRIT 27.1 % (37.9-51.0); LYMPHOCYTES % (AUTO) 16.7 % (13-45); MEAN CORPUSCULAR HEMOGLOBIN 30.8 pg (27.0-33.4); MEAN CORPUSCULAR HGB CONC 33.3 g/dL (32.0-36.0); MEAN CORPUSCULAR VOLUME 93 fl (80-97); MONOCYTES % (AUTO) 18.5 % (3-13); PLATELET COUNT 143 10^3/uL (150-450); RED BLOOD COUNT 2.93 10^6/uL (4.35-5.55); RED CELL DISTRIBUTION WIDTH 17.9 % (11.5-14.0); TOTAL CELLS COUNTED % (AUTO) 100 %; WHITE BLOOD COUNT 5.3 10^3/uL (4.0-10.5)
[2018-02-22 06:25] LABS: ALANINE AMINOTRANSFERASE 26 U/L (21-72); ALBUMIN 3.2 g/dL (3.5-5.0); ALKALINE PHOSPHATASE 161 U/L (38-126); ANION GAP 9 (5-19); ASPARTATE AMINO TRANSFERASE 26 U/L (17-59); BILIRUBIN,DIRECT 0.4 mg/dL (0.0-0.4); BILIRUBIN,TOTAL 0.4 mg/dL (0.2-1.3); BLOOD UREA NITROGEN 8 mg/dL (7-20); CALCIUM 9.2 mg/dL (8.4-10.2); CARBON DIOXIDE 15 mmol/L (22-30); CHLORIDE 110 mmol/L (98-107); GLUCOSE 140 mg/dL (75-110); POTASSIUM 4.2 mmol/L (3.6-5.0); SODIUM 134.4 mmol/L (137-145)
[2018-02-22] MEDS: NORVIR PEG SCH (10:00)
[2018-02-22] MEDS: MEGESTROL ACETATE SUSP 400 MG/10 ML UDCUP PEG SCH (11:34)
[2018-02-22] MEDS: RALTEGRAVIR POTASSIUM 400 MG TABLET PEG SCH ×2 (11:34→21:37)
[2018-02-22] MEDS: VANCOMYCIN HCL 750 MG in DEXTROSE 5%-WATER 250 ML IV SCH ×2 (11:36→21:37)
[2018-02-22] MEDS: DEXTROSE 5%-NORMAL SALINE 1,000 ML IV PRN (11:37)
[2018-02-22] MEDS: MUPIROCIN 2% OINTMENT 22 GM TP SCH ×2 (11:37→17:39)
--- NOTE | 2018-02-22 13:10 | PDOC PROGRESS REPORT ---
Subjective Progress Note for:: 02/22/18 Subjective:: Awake but not particularly responsive Reason For Visit: SEPSIS Physical Exam Vital Signs: Temp Pulse Resp BP Pulse Ox 97.5 F 94 17 134/87 H 100 02/22/18 08:00 02/22/18 08:00 02/22/18 08:00 02/22/18 08:00 02/22/18 08:00 Intake & Output 02/21/18 02/22/18 02/23/18 06:59 06:59 06:59 Intake Total 3992 3987 Output Total 3350 3225 Balance 642 762 Weight 62.1 kg 59.8 kg General appearance: PRESENT: no acute distress, disheveled, thin Head exam: PRESENT: atraumatic, normocephalic Eye exam: PRESENT: conjunctiva pale. ABSENT: nystagmus, periorbital swelling, scleral icterus Mouth exam: PRESENT: dry mucosa, neck supple, tongue midline Neck exam: ABSENT: carotid bruit, JVD, lymphadenopathy, thyromegaly, tracheal deviation, tracheostomy Respiratory exam: PRESENT: decreased breath sounds, prolonged expiratory phas, rhonchi, symmetrical, unlabored. ABSENT: retraction, stridor, tachypnea Cardiovascular exam: PRESENT: RRR, +S1, +S2 Pulses: PRESENT: normal radial pulses GI/Abdominal exam: PRESENT: diminished bowel sounds, soft, other - PEG tube in place Extremities exam: ABSENT: clubbing, joint swelling Musculoskeletal exam: ABSENT: dislocation, normal inspection Neurological exam: PRESENT: awake. ABSENT: oriented to person, oriented to place, oriented to time, oriented to situation Skin exam: PRESENT: dry, warm Results Laboratory Results: 02/22/18 05:45 02/22/18 05:45 02/21/18 02/22/18 02/22/18 19:40 05:45 05:45 WBC 5.3 RBC 2.93 L Hgb 9.0 L Hct 27.1 L MCV 93 MCH 30.8 MCHC 33.3 RDW 17.9 H Plt Count 143 L Seg Neutrophils % 64.0 Lymphocytes % 16.7 Monocytes % 18.5 H Eosinophils % 0.5 Basophils % 0.3 Absolute Neutrophils 3.4 Absolute Lymphocytes 0.9 Absolute Monocytes 1.0 Absolute Eosinophils 0.0 Absolute Basophils 0.0 Sodium 134.4 L Potassium 4.2 Chloride 110 H Carbon Dioxide 15 L Anion Gap 9 BUN 8 Creatinine 0.43 L 0.44 L Est GFR ( Amer) > 60 > 60 Est GFR (Non-Af Amer) > 60 > 60 Glucose 140 H Calcium 9.2 Total Bilirubin 0.4 AST 26 ALT 26 Alkaline Phosphatase 161 H Total Protein 8.0 Albumin 3.2 L 01/30/18 01/30/18 01/30/18 16:05 16:05 16:05 Creatine Kinase 277 H CK-MB (CK-2) 3.87 Troponin I 0.014 NT-Pro-B Natriuret Pep 1940 H 01/31/18 01/31/18 01/31/18 00:10 05:07 05:07 Creatine Kinase 767 H CK-MB (CK-2) 4.59 H 5.33 H Troponin I 0.016 0.013 NT-Pro-B Natriuret Pep Impressions: Abdomen/Pelvis CT 02/10/18 00:00 IMPRESSION: Multifocal airspace disease worrisome for pneumonia Diffuse bladder distention with mild bilateral hydronephrosis and hydroureter. Findings are worrisome for urinary retention Right permanent central line tip superior vena cava. G tube tip in the gastric antrum NORMAL CT OF THE ABDOMEN AND PELVIS WITHOUT INTRAVENOUS CONTRAST. Chest CT 02/10/18 00:00 IMPRESSION: Multifocal airspace disease worrisome for pneumonia Diffuse bladder distention with mild bilateral hydronephrosis and hydroureter. Findings are worrisome for urinary retention Right permanent central line tip superior vena cava. G tube tip in the gastric antrum NORMAL CT OF THE ABDOMEN AND PELVIS WITHOUT INTRAVENOUS CONTRAST. Head CT 02/15/18 00:00 IMPRESSION: Old infarcts. Microvascular ischemia. No acute imaging findings in the brain. EVIDENCE OF ACUTE STROKE: NO. Head MRI 02/16/18 00:00 IMPRESSION: Multiple old infarcts. No acute findings. EVIDENCE OF ACUTE STROKE: No Chest X-Ray 02/21/18 00:00 IMPRESSION: NO ACUTE RADIOGRAPHIC FINDING IN THE CHEST. Assessment & Plan - Diagnosis (1) HIV (human immunodeficiency virus infection) Is this a current diagnosis for this admission?: Yes Plan: cd4/cd8 low (2) Hospital-acquired pneumonia Is this a current diagnosis for this admission?: Yes Plan: Patient lives in a healthcare facility;Right lower lobe (4) Aspiration into airway Qualifiers: Encounter type: initial encounter Qualified Code(s): T17.908A - Unspecified foreign body in respiratory tract, part unspecified causing other injury, initial encounter Is this a current diagnosis for this admission?: Yes (5) Clostridium difficile diarrhea Is this a current diagnosis for this admission?: Yes
--- NOTE | 2018-02-22 20:19 | PDOC PROGRESS REPORT ---
Subjective Progress Note for:: 02/22/18 Subjective:: Patient is seen by the bedside, he is much improved, alert oriented Reason For Visit: SEPSIS Physical Exam Vital Signs: Temp Pulse Resp BP Pulse Ox 97.5 F 95 18 130/78 H 100 02/22/18 15:56 02/22/18 15:56 02/22/18 15:56 02/22/18 15:56 02/22/18 15:56 Intake & Output 02/21/18 02/22/18 02/23/18 06:59 06:59 06:59 Intake Total 3992 3987 2020 Output Total 3350 3225 1075 Balance 642 762 945 Weight 62.1 kg 59.8 kg General appearance: PRESENT: no acute distress Eye exam: PRESENT: PERRLA Respiratory exam: PRESENT: clear to auscultation melba Cardiovascular exam: PRESENT: +S1, +S2 GI/Abdominal exam: PRESENT: soft Neurological exam: PRESENT: alert Results Laboratory Results: 02/22/18 05:45 02/22/18 05:45 02/21/18 02/22/18 02/22/18 19:40 05:45 05:45 WBC 5.3 RBC 2.93 L Hgb 9.0 L Hct 27.1 L MCV 93 MCH 30.8 MCHC 33.3 RDW 17.9 H Plt Count 143 L Seg Neutrophils % 64.0 Lymphocytes % 16.7 Monocytes % 18.5 H Eosinophils % 0.5 Basophils % 0.3 Absolute Neutrophils 3.4 Absolute Lymphocytes 0.9 Absolute Monocytes 1.0 Absolute Eosinophils 0.0 Absolute Basophils 0.0 Sodium 134.4 L Potassium 4.2 Chloride 110 H Carbon Dioxide 15 L Anion Gap 9 BUN 8 Creatinine 0.43 L 0.44 L Est GFR ( Amer) > 60 > 60 Est GFR (Non-Af Amer) > 60 > 60 Glucose 140 H Calcium 9.2 Total Bilirubin 0.4 AST 26 ALT 26 Alkaline Phosphatase 161 H Total Protein 8.0 Albumin 3.2 L 01/30/18 01/30/18 01/30/18 16:05 16:05 16:05 Creatine Kinase 277 H CK-MB (CK-2) 3.87 Troponin I 0.014 NT-Pro-B Natriuret Pep 1940 H 01/31/18 01/31/18 01/31/18 00:10 05:07 05:07 Creatine Kinase 767 H CK-MB (CK-2) 4.59 H 5.33 H Troponin I 0.016 0.013 NT-Pro-B Natriuret Pep Impressions: Abdomen/Pelvis CT 02/10/18 00:00 IMPRESSION: Multifocal airspace disease worrisome for pneumonia Diffuse bladder distention with mild bilateral hydronephrosis and hydroureter. Findings are worrisome for urinary retention Right permanent central line tip superior vena cava. G tube tip in the gastric antrum NORMAL CT OF THE ABDOMEN AND PELVIS WITHOUT INTRAVENOUS CONTRAST. Chest CT 02/10/18 00:00 IMPRESSION: Multifocal airspace disease worrisome for pneumonia Diffuse bladder distention with mild bilateral hydronephrosis and hydroureter. Findings are worrisome for urinary retention Right permanent central line tip superior vena cava. G tube tip in the gastric antrum NORMAL CT OF THE ABDOMEN AND PELVIS WITHOUT INTRAVENOUS CONTRAST. Head CT 02/15/18 00:00 IMPRESSION: Old infarcts. Microvascular ischemia. No acute imaging findings in the brain. EVIDENCE OF ACUTE STROKE: NO. Head MRI 02/16/18 00:00 IMPRESSION: Multiple old infarcts. No acute findings. EVIDENCE OF ACUTE STROKE: No Chest X-Ray 02/21/18 00:00 IMPRESSION: NO ACUTE RADIOGRAPHIC FINDING IN THE CHEST. Assessment & Plan - Diagnosis (1) Septic shock Is this a current diagnosis for this admission?: Yes (2) Hypotension Qualifiers: Hypotension type: unspecified hypotension type Qualified Code(s): I95.9 - Hypotension, unspecified Is this a current diagnosis for this admission?: Yes (3) Urinary tract infection Qualifiers: Urinary tract infection type: site unspecified Hematuria presence: without hematuria Qualified Code(s): N39.0 - Urinary tract infection, site not specified Is this a current diagnosis for this admission?: Yes (4) Metabolic encephalopathy Is this a current diagnosis for this admission?: Yes (5) HIV (human immunodeficiency virus infection) Is this a current diagnosis for this admission?: Yes (6) Atrial fibrillation with RVR Is this a current diagnosis for this admission?: Yes (7) Gram positive septicemia Is this a current diagnosis for this admission?: Yes (8) UTI (urinary tract infection) due to Enterococcus Is this a current diagnosis for this admission?: Yes (9) Enterococcus faecalis infection Is this a current diagnosis for this admission?: Yes (10) Clostridium difficile diarrhea Is this a current diagnosis for this admission?: Yes (11) Hypokalemia Is this a current diagnosis for this admission?: Yes (12) Anemia Qualifiers: Anemia type: unspecified type Qualified Code(s): D64.9 - Anemia, unspecified Is this a current diagnosis for this admission?: Yes (13) Hypernatremia Is this a current diagnosis for this admission?: Yes (14) Multifocal pneumonia Is this a current diagnosis for this admission?: Yes (15) Acute kidney injury Is this a current diagnosis for this admission?: Yes (16) Normal anion gap metabolic acidosis Is this a current diagnosis for this admission?: Yes (17) Hypernatremia Is this a current diagnosis for this admission?: Yes (18) Dehydration Is this a current diagnosis for this admission?: Yes (19) Hospital-acquired pneumonia Is this a current diagnosis for this admission?: Yes (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
[2018-02-22] MEDS: POTASSIUM CHLORIDE 20 MEQ/15 ML UDCUP PEG SCH (21:37)
[2018-02-22] MEDS: PAROXETINE HCL 20 MG TABLET PEG SCH (21:37)
[2018-02-23] MEDS: CEFEPIME 1 GM/D5W RTU 1 GM/50 ML RTUPB IV SCH ×2 (05:27→17:42)
[2018-02-23] MEDS: DILTIAZEM HCL 60 MG TABLET PEG SCH ×4 (05:27→23:45)
[2018-02-23 06:22] LABS: HEMATOCRIT 27.5 % (37.9-51.0); HEMOGLOBIN 9.1 g/dL (13.5-17.0); MEAN CORPUSCULAR HEMOGLOBIN 30.8 pg (27.0-33.4); MEAN CORPUSCULAR VOLUME 93 fl (80-97); PLATELET COUNT 168 10^3/uL (150-450); RED BLOOD COUNT 2.95 10^6/uL (4.35-5.55); WHITE BLOOD COUNT 5.6 10^3/uL (4.0-10.5)
[2018-02-23 06:40] LABS: ALANINE AMINOTRANSFERASE 25 U/L (21-72); ALBUMIN 3.3 g/dL (3.5-5.0); ALKALINE PHOSPHATASE 149 U/L (38-126); ANION GAP 9 (5-19); ASPARTATE AMINO TRANSFERASE 28 U/L (17-59); BILIRUBIN,DIRECT 0.3 mg/dL (0.0-0.4); BILIRUBIN,TOTAL 0.3 mg/dL (0.2-1.3); BLOOD UREA NITROGEN 7 mg/dL (7-20); CALCIUM 9.4 mg/dL (8.4-10.2); CARBON DIOXIDE 15 mmol/L (22-30); CHLORIDE 112 mmol/L (98-107); GLUCOSE 162 mg/dL (75-110); POTASSIUM 4.8 mmol/L (3.6-5.0); SODIUM 135.9 mmol/L (137-145); TOTAL PROTEIN 7.8 g/dL (6.3-8.2)
[2018-02-23] MEDS: INSULIN LISPRO 100 UNIT/ML 3 ML VIAL SUBCUT PRN (06:50)
[2018-02-23 07:04] LABS: ABSOLUTE MONOCYTES # (MANUAL) 1.3 10^3/uL (0.1-1.4); ABSOLUTE NEUTROPHILS# (MANUAL) 3.2 10^3/uL (1.7-8.2); ANISOCYTOSIS 2+; BASOPHILS % (MANUAL) 0 % (0-2); EOSINOPHILS % (MANUAL) 0 % (0-6); HYPOCHROMASIA SLIGHT; LYMPHOCYTES % (MANUAL) 18 % (13-45); METAMYELOCYTES % (MANUAL) 1 % (0); MONOCYTES % (MANUAL) 24 % (3-13); PLATELET CLUMPS PRESENT; ROULEAUX 2+; SEGMENTED NEUTROPHILS % (MAN) 57 % (42-78); TOTAL CELLS COUNTED 100; TOXIC GRANULATION 1+
[2018-02-23] MEDS: VANCOMYCIN HCL 750 MG in DEXTROSE 5%-WATER 250 ML IV SCH ×2 (09:33→21:28)
[2018-02-23] MEDS: MUPIROCIN 2% OINTMENT 22 GM TP SCH ×2 (09:34→17:40)
[2018-02-23] MEDS: MEGESTROL ACETATE SUSP 400 MG/10 ML UDCUP PEG SCH (09:34)
[2018-02-23] MEDS: RALTEGRAVIR POTASSIUM 400 MG TABLET PEG SCH ×2 (09:34→21:27)
[2018-02-23] MEDS: NORVIR PEG SCH (10:00)
--- NOTE | 2018-02-23 13:45 | PDOC PROGRESS REPORT ---
Subjective Progress Note for:: 02/23/18 Subjective:: Patient was seen by the bedside he was admitted for the management of enterococcus faecalis septicemia associated with multiple complications, he is presently stable, he will continue present antibiotic regimen, hopefully will be transferred back to senior living next week. Consultation was requested from physical therapy for rehabilitation Reason For Visit: SEPSIS Physical Exam Vital Signs: Temp Pulse Resp BP Pulse Ox 97.8 F 98 16 131/90 H 100 02/23/18 11:38 02/23/18 11:38 02/23/18 11:38 02/23/18 11:38 02/23/18 11:38 Intake & Output 02/22/18 02/23/18 02/24/18 06:59 06:59 06:59 Intake Total 3987 3532 0 Output Total 3225 2425 500 Balance 762 1107 -500 Weight 59.8 kg 58.4 kg General appearance: PRESENT: no acute distress Eye exam: PRESENT: PERRLA Respiratory exam: PRESENT: clear to auscultation melba Cardiovascular exam: PRESENT: +S1, +S2 Neurological exam: PRESENT: alert Results Laboratory Results: 02/23/18 05:50 02/23/18 05:50 02/23/18 02/23/18 05:50 05:50 WBC 5.6 RBC 2.95 L Hgb 9.1 L Hct 27.5 L MCV 93 MCH 30.8 MCHC 33.0 RDW 18.0 H Plt Count 168 Seg Neutrophils % Not Reportable Lymphocytes % Not Reportable Monocytes % Not Reportable Eosinophils % Not Reportable Basophils % Not Reportable Absolute Neutrophils Not Reportable Absolute Lymphocytes Not Reportable Absolute Monocytes Not Reportable Absolute Eosinophils Not Reportable Absolute Basophils Not Reportable Sodium 135.9 L Potassium 4.8 Chloride 112 H Carbon Dioxide 15 L Anion Gap 9 BUN 7 Creatinine 0.42 L Est GFR ( Amer) > 60 Est GFR (Non-Af Amer) > 60 Glucose 162 H Calcium 9.4 Total Bilirubin 0.3 AST 28 ALT 25 Alkaline Phosphatase 149 H Total Protein 7.8 Albumin 3.3 L 01/30/18 01/30/18 01/30/18 16:05 16:05 16:05 Creatine Kinase 277 H CK-MB (CK-2) 3.87 Troponin I 0.014 NT-Pro-B Natriuret Pep 1940 H 01/31/18 01/31/1818 00:10 05:07 05:07 Creatine Kinase 767 H CK-MB (CK-2) 4.59 H 5.33 H Troponin I 0.016 0.013 NT-Pro-B Natriuret Pep Impressions: Abdomen/Pelvis CT 02/10/18 00:00 IMPRESSION: Multifocal airspace disease worrisome for pneumonia Diffuse bladder distention with mild bilateral hydronephrosis and hydroureter. Findings are worrisome for urinary retention Right permanent central line tip superior vena cava. G tube tip in the gastric antrum NORMAL CT OF THE ABDOMEN AND PELVIS WITHOUT INTRAVENOUS CONTRAST. Chest CT 02/10/18 00:00 IMPRESSION: Multifocal airspace disease worrisome for pneumonia Diffuse bladder distention with mild bilateral hydronephrosis and hydroureter. Findings are worrisome for urinary retention Right permanent central line tip superior vena cava. G tube tip in the gastric antrum NORMAL CT OF THE ABDOMEN AND PELVIS WITHOUT INTRAVENOUS CONTRAST. Head CT 02/15/18 00:00 IMPRESSION: Old infarcts. Microvascular ischemia. No acute imaging findings in the brain. EVIDENCE OF ACUTE STROKE: NO. Head MRI 02/16/18 00:00 IMPRESSION: Multiple old infarcts. No acute findings. EVIDENCE OF ACUTE STROKE: No Chest X-Ray 02/21/18 00:00 IMPRESSION: NO ACUTE RADIOGRAPHIC FINDING IN THE CHEST. Assessment & Plan - Diagnosis (1) Septic shock Is this a current diagnosis for this admission?: Yes (2) Hypotension Qualifiers: Hypotension type: unspecified hypotension type Qualified Code(s): I95.9 - Hypotension, unspecified Is this a current diagnosis for this admission?: Yes (3) Urinary tract infection Qualifiers: Urinary tract infection type: site unspecified Hematuria presence: without hematuria Qualified Code(s): N39.0 - Urinary tract infection, site not specified Is this a current diagnosis for this admission?: Yes (4) Metabolic encephalopathy Is this a current diagnosis for this admission?: Yes (5) HIV (human immunodeficiency virus infection) Is this a current diagnosis for this admission?: Yes (6) Atrial fibrillation with RVR Is this a current diagnosis for this admission?: Yes (7) Gram positive septicemia Is this a current diagnosis for this admission?: Yes (8) UTI (urinary tract infection) due to Enterococcus Is this a current diagnosis for this admission?: Yes (9) Enterococcus faecalis infection Is this a current diagnosis for this admission?: Yes (10) Clostridium difficile diarrhea Is this a current diagnosis for this admission?: Yes (11) Hypokalemia Is this a current diagnosis for this admission?: Yes (12) Anemia Qualifiers: Anemia type: unspecified type Qualified Code(s): D64.9 - Anemia, unspecified Is this a current diagnosis for this admission?: Yes (13) Hypernatremia Is this a current diagnosis for this admission?: Yes (14) Multifocal pneumonia Is this a current diagnosis for this admission?: Yes (15) Acute kidney injury Is this a current diagnosis for this admission?: Yes (16) Normal anion gap metabolic acidosis Is this a current diagnosis for this admission?: Yes (17) Hypernatremia Is this a current diagnosis for this admission?: Yes (18) Dehydration Is this a current diagnosis for this admission?: Yes (19) Hospital-acquired pneumonia Is this a current diagnosis for this admission?: Yes (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
[2018-02-23] MEDS: DEXTROSE 5%-NORMAL SALINE 1,000 ML IV PRN (13:47)
[2018-02-23] MEDS: PAROXETINE HCL 20 MG TABLET PEG SCH (21:27)
[2018-02-23] MEDS: POTASSIUM CHLORIDE 20 MEQ/15 ML UDCUP PEG SCH (21:27)
[2018-02-24] MEDS: NYSTATIN CREAM 15 GM TP PRN ×2 (00:08→05:42)
[2018-02-24] MEDS: NYSTATIN TOPICAL POWDER 15 GM TP PRN ×2 (00:08→05:42)
[2018-02-24] MEDS: DILTIAZEM HCL 60 MG TABLET PEG SCH ×4 (05:24→23:50)
[2018-02-24] MEDS: CEFEPIME 1 GM/D5W RTU 1 GM/50 ML RTUPB IV SCH ×2 (05:25→17:28)
[2018-02-24] MEDS: DEXTROSE 5%-NORMAL SALINE 1,000 ML IV PRN ×2 (05:27→19:35)
[2018-02-24 06:53] LABS: HEMATOCRIT 27.5 % (37.9-51.0); HEMOGLOBIN 9.1 g/dL (13.5-17.0); MEAN CORPUSCULAR HEMOGLOBIN 30.9 pg (27.0-33.4); MEAN CORPUSCULAR HGB CONC 33.3 g/dL (32.0-36.0); MEAN CORPUSCULAR VOLUME 93 fl (80-97); PLATELET COUNT 201 10^3/uL (150-450); RED BLOOD COUNT 2.96 10^6/uL (4.35-5.55); RED CELL DISTRIBUTION WIDTH 18.2 % (11.5-14.0); WHITE BLOOD COUNT 5.3 10^3/uL (4.0-10.5)
[2018-02-24 07:05] LABS: ALANINE AMINOTRANSFERASE 29 U/L (21-72); ALBUMIN 3.2 g/dL (3.5-5.0); ALKALINE PHOSPHATASE 182 U/L (38-126); ANION GAP 12 (5-19); ASPARTATE AMINO TRANSFERASE 30 U/L (17-59); BILIRUBIN,DIRECT 0.3 mg/dL (0.0-0.4); BILIRUBIN,TOTAL 0.3 mg/dL (0.2-1.3); BLOOD UREA NITROGEN 9 mg/dL (7-20); CALCIUM 9.2 mg/dL (8.4-10.2); CARBON DIOXIDE 14 mmol/L (22-30); CHLORIDE 110 mmol/L (98-107); GLUCOSE 170 mg/dL (75-110); POTASSIUM 4.9 mmol/L (3.6-5.0); SODIUM 136.2 mmol/L (137-145); TOTAL PROTEIN 8.1 g/dL (6.3-8.2)
[2018-02-24 07:43] LABS: ABSOLUTE LYMPHOCYTES# (MANUAL) 0.8 10^3/uL (0.5-4.7); ABSOLUTE MONOCYTES # (MANUAL) 1.3 10^3/uL (0.1-1.4); ABSOLUTE NEUTROPHILS# (MANUAL) 3.1 10^3/uL (1.7-8.2); BASOPHILS % (MANUAL) 0 % (0-2); EOSINOPHILS % (MANUAL) 2 % (0-6); LYMPHOCYTES % (MANUAL) 16 % (13-45); MONOCYTES % (MANUAL) 24 % (3-13); SEGMENTED NEUTROPHILS % (MAN) 58 % (42-78); TOTAL CELLS COUNTED 100
[2018-02-24 07:45] LABS: ANISOCYTOSIS 2+; POIKILOCYTOSIS 1+; POLYCHROMASIA SLIGHT; TOXIC GRANULATION SLIGHT
[2018-02-24 07:46] LABS: PLATELET CLUMPS PRESENT; PLATELET COMMENT ADEQUATE; TARGET CELLS 1+
[2018-02-24] MEDS: MEGESTROL ACETATE SUSP 400 MG/10 ML UDCUP PEG SCH (10:31)
[2018-02-24] MEDS: MUPIROCIN 2% OINTMENT 22 GM TP SCH ×2 (10:46→17:34)
[2018-02-24] MEDS: VANCOMYCIN HCL 750 MG in DEXTROSE 5%-WATER 250 ML IV SCH ×2 (10:47→21:53)
[2018-02-24] MEDS: RALTEGRAVIR POTASSIUM 400 MG TABLET PEG SCH ×2 (10:52→21:52)
[2018-02-24] MEDS: NORVIR PEG SCH (10:55)
[2018-02-24 11:23] LABS: VANCOMYCIN,TROUGH 11.7 ug/mL (5.0-20.0)
--- NOTE | 2018-02-24 13:50 | PDOC PROGRESS REPORT ---
Subjective Progress Note for:: 02/24/18 Subjective:: Patient denied any chest pain or difficulty with breathing. There is reported diarrhea. Remain on enteral tube feeding. No fever or chills. Remain on IV Vancomycin coverage for E. Faecalis septicemia. Reason For Visit: SEPSIS Physical Exam Vital Signs: Temp Pulse Resp BP Pulse Ox 97.8 F 106 H 16 129/79 H 98 02/24/18 07:17 02/24/18 07:00 02/24/18 07:17 02/24/18 07:17 02/24/18 05:27 Intake & Output 02/23/18 02/24/18 02/25/18 06:59 06:59 06:59 Intake Total 3532 3643 Output Total 2425 2200 Balance 1107 1443 Weight 58.4 kg 58.9 kg Physical Exam: General appearance: PRESENT: thin Head exam: PRESENT: atraumatic, normocephalic Eye exam: PRESENT: conjunctiva pink, EOMI, PERRLA. ABSENT: scleral icterus Mouth exam: PRESENT: moist Teeth exam: PRESENT: poor dentition Respiratory exam: PRESENT: clear to auscultation melba, decreased breath sounds - at lung bases Cardiovascular exam: PRESENT: RRR. ABSENT: diastolic murmur, rubs, systolic murmur GI/Abdominal exam: PRESENT: normal bowel sounds, soft. PEG site satisfactory ABSENT: distended, guarding, mass, organomegaly, rebound, tenderness Extremities exam: ABSENT: pedal edema Musculoskeletal exam: PRESENT: normal inspection Neurological exam: PRESENT: alert, awake, oriented to person, oriented to place , oriented to time, oriented to situation, CN II-XII grossly intact. ABSENT: motor sensory deficit Psychiatric exam: PRESENT: appropriate affect, normal mood. ABSENT: homicidal ideation, suicidal ideation Skin exam: PRESENT: dry, intact, warm. ABSENT: cyanosis, rash Results Laboratory Results: 02/24/18 05:50 02/24/18 05:50 02/24/18 02/24/18 05:50 05:50 WBC 5.3 RBC 2.96 L Hgb 9.1 L Hct 27.5 L MCV 93 MCH 30.9 MCHC 33.3 RDW 18.2 H Plt Count 201 Seg Neutrophils % Not Reportable Lymphocytes % Not Reportable Monocytes % Not Reportable Eosinophils % Not Reportable Basophils % Not Reportable Absolute Neutrophils Not Reportable Absolute Lymphocytes Not Reportable Absolute Monocytes Not Reportable Absolute Eosinophils Not Reportable Absolute Basophils Not Reportable Sodium 136.2 L Potassium 4.9 Chloride 110 H Carbon Dioxide 14 L Anion Gap 12 BUN 9 Creatinine 0.49 L Est GFR ( Amer) > 60 Est GFR (Non-Af Amer) > 60 Glucose 170 H Calcium 9.2 Total Bilirubin 0.3 AST 30 ALT 29 Alkaline Phosphatase 182 H Total Protein 8.1 Albumin 3.2 L 01/30/18 01/30/18 01/30/18 16:05 16:05 16:05 Creatine Kinase 277 H CK-MB (CK-2) 3.87 Troponin I 0.014 NT-Pro-B Natriuret Pep 1940 H 01/31/18 01/31/18 01/31/18 00:10 05:07 05:07 Creatine Kinase 767 H CK-MB (CK-2) 4.59 H 5.33 H Troponin I 0.016 0.013 NT-Pro-B Natriuret Pep Impressions: Abdomen/Pelvis CT 02/10/18 00:00 IMPRESSION: Multifocal airspace disease worrisome for pneumonia Diffuse bladder distention with mild bilateral hydronephrosis and hydroureter. Findings are worrisome for urinary retention Right permanent central line tip superior vena cava. G tube tip in the gastric antrum NORMAL CT OF THE ABDOMEN AND PELVIS WITHOUT INTRAVENOUS CONTRAST. Chest CT 02/10/18 00:00 IMPRESSION: Multifocal airspace disease worrisome for pneumonia Diffuse bladder distention with mild bilateral hydronephrosis and hydroureter. Findings are worrisome for urinary retention Right permanent central line tip superior vena cava. G tube tip in the gastric antrum NORMAL CT OF THE ABDOMEN AND PELVIS WITHOUT INTRAVENOUS CONTRAST. Head CT 02/15/18 00:00 IMPRESSION: Old infarcts. Microvascular ischemia. No acute imaging findings in the brain. EVIDENCE OF ACUTE STROKE: NO. Head MRI 02/16/18 00:00 IMPRESSION: Multiple old infarcts. No acute findings. EVIDENCE OF ACUTE STROKE: No Chest X-Ray 02/21/18 00:00 IMPRESSION: NO ACUTE RADIOGRAPHIC FINDING IN THE CHEST. Assessment & Plan - Diagnosis (1) Enterococcus faecalis infection Is this a current diagnosis for this admission?: Yes (2) UTI (urinary tract infection) due to Enterococcus Is this a current diagnosis for this admission?: Yes (3) Diabetes mellitus, type II Qualifiers: Diabetes mellitus rodent exterminator insulin use: without rodent exterminator use Diabetes mellitus complication status: with unspecified complications Qualified Code(s) : E11.8 - Type 2 diabetes mellitus with unspecified complications Is this a current diagnosis for this admission?: Yes (4) HIV (human immunodeficiency virus infection) Is this a current diagnosis for this admission?: Yes (6) Adult failure to thrive syndrome Is this a current diagnosis for this admission?: Yes (7) Head and neck cancer Is this a current diagnosis for this admission?: Yes (8) Diarrhea Qualifiers: Diarrhea type: unspecified type Qualified Code(s): R19.7 - Diarrhea, unspecified Is this a current diagnosis for this admission?: Yes Plan: Obtain stool C. difficle toxin titer - Time Time Spent with patient: 25-34 minutes Medications reviewed and adjusted accordingly: Yes Anticipated discharge: SNF Within: Other - Inpatient Certification Based on my medical assessment, after consideration of the patient's comorbidities, presenting symptoms, or acuity I expect that the services needed warrant INPATIENT care.: Yes I certify that my determination is in accordance with my understanding of Medicare's requirements for reasonable and necessary INPATIENT services [42 CFR 412.3e].: Yes Medical Necessity: Need Close Monitoring Due to Risk of Patient Decompensation, Need For IV Fluids, Need For Continuous Telemetry Monitoring, Need for IV Antibiotics, Risk of Complication if Not Cared For in Hospital Post Hospital Care: D/C or Transfer Summary - Plan Summary Plan Summary: See covering attending physician orders.
[2018-02-24] MEDS: POTASSIUM CHLORIDE 20 MEQ/15 ML UDCUP PEG SCH (21:52)
[2018-02-24] MEDS: PAROXETINE HCL 20 MG TABLET PEG SCH (21:52)
[2018-02-25 05:42] LABS: HEMATOCRIT 26.1 % (37.9-51.0); HEMOGLOBIN 8.8 g/dL (13.5-17.0); MEAN CORPUSCULAR HEMOGLOBIN 31.3 pg (27.0-33.4); MEAN CORPUSCULAR HGB CONC 33.7 g/dL (32.0-36.0); MEAN CORPUSCULAR VOLUME 93 fl (80-97); RED BLOOD COUNT 2.81 10^6/uL (4.35-5.55); RED CELL DISTRIBUTION WIDTH 18.4 % (11.5-14.0)
[2018-02-25 05:57] LABS: ALANINE AMINOTRANSFERASE 28 U/L (21-72); ALKALINE PHOSPHATASE 192 U/L (38-126); ANION GAP 11 (5-19); ASPARTATE AMINO TRANSFERASE 28 U/L (17-59); BILIRUBIN,DIRECT 0.2 mg/dL (0.0-0.4); BILIRUBIN,TOTAL 0.2 mg/dL (0.2-1.3); BLOOD UREA NITROGEN 8 mg/dL (7-20); CALCIUM 9.1 mg/dL (8.4-10.2); CARBON DIOXIDE 15 mmol/L (22-30); CHLORIDE 109 mmol/L (98-107); GLUCOSE 175 mg/dL (75-110); POTASSIUM 4.8 mmol/L (3.6-5.0); TOTAL PROTEIN 7.4 g/dL (6.3-8.2)
[2018-02-25 06:17] LABS: ABSOLUTE LYMPHOCYTES# (MANUAL) 0.9 10^3/uL (0.5-4.7); ABSOLUTE MONOCYTES # (MANUAL) 0.8 10^3/uL (0.1-1.4); ABSOLUTE NEUTROPHILS# (MANUAL) 3.3 10^3/uL (1.7-8.2); ANISOCYTOSIS 2+; BASOPHILS % (MANUAL) 0 % (0-2); EOSINOPHILS % (MANUAL) 1 % (0-6); LYMPHOCYTES % (MANUAL) 17 % (13-45); MONOCYTES % (MANUAL) 15 % (3-13); NUCLEATED RED BLOOD CELLS 1 /100 WBC (0); POIKILOCYTOSIS 1+; POLYCHROMASIA SLIGHT; SEGMENTED NEUTROPHILS % (MAN) 66 % (42-78); TOTAL CELLS COUNTED 100; TOXIC GRANULATION SLIGHT; TOXIC VACUOLATION PRESENT
[2018-02-25 06:18] LABS: PLATELET COMMENT ADEQUATE; TARGET CELLS 1+; TEAR DROP CELLS SLIGHT
[2018-02-25 06:20] LABS: PLATELET CLUMPS PRESENT; PLATELET COUNT 200 10^3/uL (150-450)
[2018-02-25] MEDS: CEFEPIME 1 GM/D5W RTU 1 GM/50 ML RTUPB IV SCH ×2 (06:32→17:37)
[2018-02-25] MEDS: DILTIAZEM HCL 60 MG TABLET PEG SCH ×3 (06:32→17:37)
--- NOTE | 2018-02-25 09:38 | PDOC PROGRESS REPORT ---
Subjective Progress Note for:: 02/25/18 Subjective:: Patient denied any chest pain or difficulty with breathing. There is ongoing diarrhea. Stool C. difficile toxin is reported negative on 02/24/18. No fever or chills. Patient remain on IV Vancomycin coverage for E. Faecalis septicemia. Reason For Visit: SEPSIS Physical Exam Vital Signs: Temp Pulse Resp BP Pulse Ox 98.4 F 102 H 16 139/85 H 100 02/25/18 08:23 02/25/18 08:23 02/25/18 08:23 02/25/18 08:23 02/25/18 08:23 Intake & Output 02/24/18 02/25/18 02/26/18 06:59 06:59 06:59 Intake Total 3643 3943 Output Total 2200 2700 Balance 1443 1243 Weight 58.9 kg 58.6 kg Physical Exam: General appearance: PRESENT: thin Head exam: PRESENT: atraumatic, normocephalic Eye exam: PRESENT: conjunctiva pink, EOMI, PERRLA. ABSENT: scleral icterus Mouth exam: PRESENT: moist Teeth exam: PRESENT: poor dentition Respiratory exam: PRESENT: clear to auscultation melba, decreased breath sounds - at lung bases Cardiovascular exam: PRESENT: RRR. ABSENT: diastolic murmur, rubs, systolic murmur GI/Abdominal exam: PRESENT: normal bowel sounds, soft. PEG site satisfactory ABSENT: distended, guarding, mass, organomegaly, rebound, tenderness Extremities exam: ABSENT: pedal edema Musculoskeletal exam: PRESENT: normal inspection Neurological exam: PRESENT: alert, awake, oriented to person, oriented to place , oriented to time, oriented to situation, CN II-XII grossly intact. ABSENT: motor sensory deficit Psychiatric exam: PRESENT: appropriate affect, normal mood. ABSENT: homicidal ideation, suicidal ideation Skin exam: PRESENT: dry, intact, warm. ABSENT: cyanosis, rash Results Laboratory Results: 02/25/18 04:30 02/25/18 04:30 02/25/18 02/25/18 04:30 04:30 WBC 5.0 RBC 2.81 L Hgb 8.8 L Hct 26.1 L MCV 93 MCH 31.3 MCHC 33.7 RDW 18.4 H Plt Count 200 Seg Neutrophils % Not Reportable Lymphocytes % Not Reportable Monocytes % Not Reportable Eosinophils % Not Reportable Basophils % Not Reportable Absolute Neutrophils Not Reportable Absolute Lymphocytes Not Reportable Absolute Monocytes Not Reportable Absolute Eosinophils Not Reportable Absolute Basophils Not Reportable Sodium 135.0 L Potassium 4.8 Chloride 109 H Carbon Dioxide 15 L Anion Gap 11 BUN 8 Creatinine 0.42 L Est GFR ( Amer) > 60 Est GFR (Non-Af Amer) > 60 Glucose 175 H Calcium 9.1 Total Bilirubin 0.2 AST 28 ALT 28 Alkaline Phosphatase 192 H Total Protein 7.4 Albumin 3.0 L 01/30/18 01/30/18 01/30/18 16:05 16:05 16:05 Creatine Kinase 277 H CK-MB (CK-2) 3.87 Troponin I 0.014 NT-Pro-B Natriuret Pep 1940 H 01/31/18 01/31/18 01/31/18 00:10 05:07 05:07 Creatine Kinase 767 H CK-MB (CK-2) 4.59 H 5.33 H Troponin I 0.016 0.013 NT-Pro-B Natriuret Pep Impressions: Abdomen/Pelvis CT 02/10/18 00:00 IMPRESSION: Multifocal airspace disease worrisome for pneumonia Diffuse bladder distention with mild bilateral hydronephrosis and hydroureter. Findings are worrisome for urinary retention Right permanent central line tip superior vena cava. G tube tip in the gastric antrum NORMAL CT OF THE ABDOMEN AND PELVIS WITHOUT INTRAVENOUS CONTRAST. Chest CT 02/10/18 00:00 IMPRESSION: Multifocal airspace disease worrisome for pneumonia Diffuse bladder distention with mild bilateral hydronephrosis and hydroureter. Findings are worrisome for urinary retention Right permanent central line tip superior vena cava. G tube tip in the gastric antrum NORMAL CT OF THE ABDOMEN AND PELVIS WITHOUT INTRAVENOUS CONTRAST. Head CT 02/15/18 00:00 IMPRESSION: Old infarcts. Microvascular ischemia. No acute imaging findings in the brain. EVIDENCE OF ACUTE STROKE: NO. Head MRI 02/16/18 00:00 IMPRESSION: Multiple old infarcts. No acute findings. EVIDENCE OF ACUTE STROKE: No Chest X-Ray 02/21/18 00:00 IMPRESSION: NO ACUTE RADIOGRAPHIC FINDING IN THE CHEST. Assessment & Plan - Diagnosis (1) Enterococcus faecalis infection Is this a current diagnosis for this admission?: Yes (2) UTI (urinary tract infection) due to Enterococcus Is this a current diagnosis for this admission?: Yes (3) Diabetes mellitus, type II Qualifiers: Diabetes mellitus supervisor intermediates insulin use: without supervisor intermediates use Diabetes mellitus complication status: with unspecified complications Qualified Code(s) : E11.8 - Type 2 diabetes mellitus with unspecified complications Is this a current diagnosis for this admission?: Yes (4) HIV (human immunodeficiency virus infection) Is this a current diagnosis for this admission?: Yes (6) Adult failure to thrive syndrome Is this a current diagnosis for this admission?: Yes (7) Head and neck cancer Is this a current diagnosis for this admission?: Yes (8) Diarrhea Qualifiers: Diarrhea type: unspecified type Qualified Code(s): R19.7 - Diarrhea, unspecified Is this a current diagnosis for this admission?: Yes - Time Time Spent with patient: 25-34 minutes Medications reviewed and adjusted accordingly: Yes Anticipated discharge: SNF Within: Other - Inpatient Certification Based on my medical assessment, after consideration of the patient's comorbidities, presenting symptoms, or acuity I expect that the services needed warrant INPATIENT care.: Yes I certify that my determination is in accordance with my understanding of Medicare's requirements for reasonable and necessary INPATIENT services [42 CFR 412.3e].: Yes Medical Necessity: Need Close Monitoring Due to Risk of Patient Decompensation, Need For IV Fluids, Need For Continuous Telemetry Monitoring, Need for IV Antibiotics, Risk of Complication if Not Cared For in Hospital Post Hospital Care: D/C or Transfer Summary - Plan Summary Plan Summary: Continue current medication management.
[2018-02-25] MEDS: MEGESTROL ACETATE SUSP 400 MG/10 ML UDCUP PEG SCH (10:40)
[2018-02-25] MEDS: NORVIR PEG SCH (10:40)
[2018-02-25] MEDS: VANCOMYCIN HCL 750 MG in DEXTROSE 5%-WATER 250 ML IV SCH ×2 (10:40→21:47)
[2018-02-25] MEDS: RALTEGRAVIR POTASSIUM 400 MG TABLET PEG SCH ×2 (10:40→21:47)
[2018-02-25] MEDS: MUPIROCIN 2% OINTMENT 22 GM TP SCH ×2 (10:41→17:37)
[2018-02-25] MEDS: DEXTROSE 5%-NORMAL SALINE 1,000 ML IV PRN ×2 (11:42→22:55)
[2018-02-25] MEDS: INSULIN LISPRO 100 UNIT/ML 3 ML VIAL SUBCUT PRN ×2 (12:41→17:37)
--- NOTE | 2018-02-25 16:28 | PDOC PROGRESS REPORT ---
Subjective Progress Note for:: 02/23/18 Subjective:: Awake but not particularly responsive Reason For Visit: SEPSIS Physical Exam Vital Signs: Temp Pulse Resp BP Pulse Ox 98.4 F 101 H 16 152/88 H 100 02/25/18 15:02 02/25/18 15:02 02/25/18 15:02 02/25/18 15:02 02/25/18 15:02 Intake & Output 02/24/18 02/25/18 02/26/18 06:59 06:59 06:59 Intake Total 3643 3943 462 Output Total 2200 2700 Balance 1443 1243 462 Weight 58.9 kg 58.6 kg General appearance: PRESENT: no acute distress, disheveled, thin. ABSENT: cooperative Head exam: PRESENT: atraumatic, normocephalic Eye exam: PRESENT: conjunctiva pale, EOMI. ABSENT: nystagmus, periorbital swelling, scleral icterus Mouth exam: PRESENT: dry mucosa, neck supple, tongue midline Neck exam: ABSENT: carotid bruit, JVD, lymphadenopathy, thyromegaly, tracheal deviation, tracheostomy Respiratory exam: PRESENT: decreased breath sounds, prolonged expiratory phas, rhonchi, symmetrical, unlabored. ABSENT: rales, retraction, stridor, tachypnea Cardiovascular exam: PRESENT: RRR, +S1, +S2 Pulses: PRESENT: normal radial pulses GI/Abdominal exam: PRESENT: diminished bowel sounds, soft, other - PEG Extremities exam: ABSENT: clubbing, joint swelling Musculoskeletal exam: ABSENT: deformity, dislocation Neurological exam: PRESENT: awake. ABSENT: oriented to person Skin exam: PRESENT: dry, warm Results Laboratory Results: 02/25/18 04:30 02/25/18 04:30 02/25/18 02/25/18 04:30 04:30 WBC 5.0 RBC 2.81 L Hgb 8.8 L Hct 26.1 L MCV 93 MCH 31.3 MCHC 33.7 RDW 18.4 H Plt Count 200 Seg Neutrophils % Not Reportable Lymphocytes % Not Reportable Monocytes % Not Reportable Eosinophils % Not Reportable Basophils % Not Reportable Absolute Neutrophils Not Reportable Absolute Lymphocytes Not Reportable Absolute Monocytes Not Reportable Absolute Eosinophils Not Reportable Absolute Basophils Not Reportable Sodium 135.0 L Potassium 4.8 Chloride 109 H Carbon Dioxide 15 L Anion Gap 11 BUN 8 Creatinine 0.42 L Est GFR ( Amer) > 60 Est GFR (Non-Af Amer) > 60 Glucose 175 H Calcium 9.1 Total Bilirubin 0.2 AST 28 ALT 28 Alkaline Phosphatase 192 H Total Protein 7.4 Albumin 3.0 L 01/30/18 01/30/18 01/30/18 16:05 16:05 16:05 Creatine Kinase 277 H CK-MB (CK-2) 3.87 Troponin I 0.014 NT-Pro-B Natriuret Pep 1940 H 01/31/18 01/31/18 01/31/18 00:10 05:07 05:07 Creatine Kinase 767 H CK-MB (CK-2) 4.59 H 5.33 H Troponin I 0.016 0.013 NT-Pro-B Natriuret Pep Impressions: Abdomen/Pelvis CT 02/10/18 00:00 IMPRESSION: Multifocal airspace disease worrisome for pneumonia Diffuse bladder distention with mild bilateral hydronephrosis and hydroureter. Findings are worrisome for urinary retention Right permanent central line tip superior vena cava. G tube tip in the gastric antrum NORMAL CT OF THE ABDOMEN AND PELVIS WITHOUT INTRAVENOUS CONTRAST. Chest CT 02/10/18 00:00 IMPRESSION: Multifocal airspace disease worrisome for pneumonia Diffuse bladder distention with mild bilateral hydronephrosis and hydroureter. Findings are worrisome for urinary retention Right permanent central line tip superior vena cava. G tube tip in the gastric antrum NORMAL CT OF THE ABDOMEN AND PELVIS WITHOUT INTRAVENOUS CONTRAST. Head CT 02/15/18 00:00 IMPRESSION: Old infarcts. Microvascular ischemia. No acute imaging findings in the brain. EVIDENCE OF ACUTE STROKE: NO. Head MRI 02/16/18 00:00 IMPRESSION: Multiple old infarcts. No acute findings. EVIDENCE OF ACUTE STROKE: No Chest X-Ray 02/21/18 00:00 IMPRESSION: NO ACUTE RADIOGRAPHIC FINDING IN THE CHEST. Assessment & Plan - Diagnosis (1) HIV (human immunodeficiency virus infection) Is this a current diagnosis for this admission?: Yes Plan: cd4/cd8 low (2) Hospital-acquired pneumonia Is this a current diagnosis for this admission?: Yes Plan: Patient lives in a healthcare facility;Right lower lobe (4) Aspiration into airway Qualifiers: Encounter type: initial encounter Qualified Code(s): T17.908A - Unspecified foreign body in respiratory tract, part unspecified causing other injury, initial encounter Is this a current diagnosis for this admission?: Yes Plan: continue current treatment (5) Clostridium difficile diarrhea Is this a current diagnosis for this admission?: Yes
[2018-02-25] MEDS: POTASSIUM CHLORIDE 20 MEQ/15 ML UDCUP PEG SCH (21:47)
[2018-02-25] MEDS: PAROXETINE HCL 20 MG TABLET PEG SCH (21:47)
[2018-02-26] MEDS: DILTIAZEM HCL 60 MG TABLET PEG SCH ×4 (00:49→18:09)
[2018-02-26 04:54] LABS: HEMATOCRIT 27.7 % (37.9-51.0); HEMOGLOBIN 9.2 g/dL (13.5-17.0); MEAN CORPUSCULAR HGB CONC 33.4 g/dL (32.0-36.0); MEAN CORPUSCULAR VOLUME 93 fl (80-97); PLATELET COUNT 235 10^3/uL (150-450); RED BLOOD COUNT 2.98 10^6/uL (4.35-5.55); RED CELL DISTRIBUTION WIDTH 18.2 % (11.5-14.0); WHITE BLOOD COUNT 5.8 10^3/uL (4.0-10.5)
[2018-02-26 05:08] LABS: ALANINE AMINOTRANSFERASE 37 U/L (21-72); ALBUMIN 3.3 g/dL (3.5-5.0); ALKALINE PHOSPHATASE 203 U/L (38-126); ANION GAP 8 (5-19); ASPARTATE AMINO TRANSFERASE 31 U/L (17-59); BILIRUBIN,DIRECT 0.2 mg/dL (0.0-0.4); BILIRUBIN,TOTAL 0.2 mg/dL (0.2-1.3); BLOOD UREA NITROGEN 10 mg/dL (7-20); CALCIUM 9.4 mg/dL (8.4-10.2); CARBON DIOXIDE 17 mmol/L (22-30); CHLORIDE 107 mmol/L (98-107); GLUCOSE 156 mg/dL (75-110); SODIUM 132.4 mmol/L (137-145); TOTAL PROTEIN 7.6 g/dL (6.3-8.2)
[2018-02-26 05:22] LABS: ABSOLUTE LYMPHOCYTES# (MANUAL) 1.1 10^3/uL (0.5-4.7); ABSOLUTE MONOCYTES # (MANUAL) 0.9 10^3/uL (0.1-1.4); ABSOLUTE NEUTROPHILS# (MANUAL) 3.8 10^3/uL (1.7-8.2); BASOPHILS % (MANUAL) 0 % (0-2); EOSINOPHILS % (MANUAL) 0 % (0-6); LYMPHOCYTES % (MANUAL) 18 % (13-45); MONOCYTES % (MANUAL) 16 % (3-13); SEGMENTED NEUTROPHILS % (MAN) 65 % (42-78); TOTAL CELLS COUNTED 100
[2018-02-26 05:24] LABS: TOXIC GRANULATION SLIGHT; TOXIC VACUOLATION PRESENT
[2018-02-26 05:25] LABS: ACANTHOCYTES SLIGHT; ANISOCYTOSIS 2+; PLATELET COMMENT ADEQUATE; POIKILOCYTOSIS 1+; POLYCHROMASIA SLIGHT; TARGET CELLS SLIGHT; TEAR DROP CELLS 1+
[2018-02-26] MEDS: CEFEPIME 1 GM/D5W RTU 1 GM/50 ML RTUPB IV SCH (05:48)
[2018-02-26] MEDS: MEGESTROL ACETATE SUSP 400 MG/10 ML UDCUP PEG SCH (10:49)
[2018-02-26] MEDS: VANCOMYCIN HCL 750 MG in DEXTROSE 5%-WATER 250 ML IV SCH (10:49)
[2018-02-26] MEDS: NORVIR PEG SCH (10:50)
[2018-02-26] MEDS: MUPIROCIN 2% OINTMENT 22 GM TP SCH ×2 (10:50→18:09)
[2018-02-26] MEDS: RALTEGRAVIR POTASSIUM 400 MG TABLET PEG SCH ×2 (10:50→21:37)
[2018-02-26] MEDS: INSULIN LISPRO 100 UNIT/ML 3 ML VIAL SUBCUT PRN ×2 (11:32→18:09)
[2018-02-26] MEDS: DEXTROSE 5%-NORMAL SALINE 1,000 ML IV PRN (18:10)
--- NOTE | 2018-02-26 20:31 | PDOC PROGRESS REPORT ---
Subjective Progress Note for:: 02/26/18 Subjective:: Patient was seen by the bedside today he is much improved he is awake alert oriented, involved in conversation, the antibiotic be discontinued, hopefully discharge back to skilled nursing by Monday Reason For Visit: SEPSIS Physical Exam Vital Signs: Temp Pulse Resp BP Pulse Ox 98.3 F 96 18 147/87 H 100 02/26/18 19:52 02/26/18 19:52 02/26/18 19:52 02/26/18 19:52 02/26/18 19:52 Intake & Output 02/25/18 02/26/18 02/27/18 06:59 06:59 06:59 Intake Total 3943 3598 2057 Output Total 2700 1900 1900 Balance 1243 1698 157 Weight 58.6 kg 59.2 kg General appearance: PRESENT: no acute distress Eye exam: PRESENT: PERRLA Respiratory exam: PRESENT: clear to auscultation melba Cardiovascular exam: PRESENT: +S1, +S2 GI/Abdominal exam: PRESENT: soft Neurological exam: PRESENT: alert Results Laboratory Results: 02/26/18 04:15 02/26/18 04:15 02/26/18 02/26/18 04:15 04:15 WBC 5.8 RBC 2.98 L Hgb 9.2 L Hct 27.7 L MCV 93 MCH 31.0 MCHC 33.4 RDW 18.2 H Plt Count 235 Seg Neutrophils % Not Reportable Lymphocytes % Not Reportable Monocytes % Not Reportable Eosinophils % Not Reportable Basophils % Not Reportable Absolute Neutrophils Not Reportable Absolute Lymphocytes Not Reportable Absolute Monocytes Not Reportable Absolute Eosinophils Not Reportable Absolute Basophils Not Reportable Sodium 132.4 L Potassium 5.0 Chloride 107 Carbon Dioxide 17 L Anion Gap 8 BUN 10 Creatinine 0.38 L Est GFR ( Amer) > 60 Est GFR (Non-Af Amer) > 60 Glucose 156 H Calcium 9.4 Total Bilirubin 0.2 AST 31 ALT 37 Alkaline Phosphatase 203 H Total Protein 7.6 Albumin 3.3 L 01/30/18 01/30/18 01/30/18 16:05 16:05 16:05 Creatine Kinase 277 H CK-MB (CK-2) 3.87 Troponin I 0.014 NT-Pro-B Natriuret Pep 1940 H 01/31/18 01/31/18 01/31/18 00:10 05:07 05:07 Creatine Kinase 767 H CK-MB (CK-2) 4.59 H 5.33 H Troponin I 0.016 0.013 NT-Pro-B Natriuret Pep Impressions: Abdomen/Pelvis CT 02/10/18 00:00 IMPRESSION: Multifocal airspace disease worrisome for pneumonia Diffuse bladder distention with mild bilateral hydronephrosis and hydroureter. Findings are worrisome for urinary retention Right permanent central line tip superior vena cava. G tube tip in the gastric antrum NORMAL CT OF THE ABDOMEN AND PELVIS WITHOUT INTRAVENOUS CONTRAST. Chest CT 02/10/18 00:00 IMPRESSION: Multifocal airspace disease worrisome for pneumonia Diffuse bladder distention with mild bilateral hydronephrosis and hydroureter. Findings are worrisome for urinary retention Right permanent central line tip superior vena cava. G tube tip in the gastric antrum NORMAL CT OF THE ABDOMEN AND PELVIS WITHOUT INTRAVENOUS CONTRAST. Head CT 02/15/18 00:00 IMPRESSION: Old infarcts. Microvascular ischemia. No acute imaging findings in the brain. EVIDENCE OF ACUTE STROKE: NO. Head MRI 02/16/18 00:00 IMPRESSION: Multiple old infarcts. No acute findings. EVIDENCE OF ACUTE STROKE: No Chest X-Ray 02/21/18 00:00 IMPRESSION: NO ACUTE RADIOGRAPHIC FINDING IN THE CHEST. Assessment & Plan - Diagnosis (1) Septic shock Is this a current diagnosis for this admission?: Yes (2) Hypotension Qualifiers: Hypotension type: unspecified hypotension type Qualified Code(s): I95.9 - Hypotension, unspecified Is this a current diagnosis for this admission?: Yes (3) Urinary tract infection Qualifiers: Urinary tract infection type: site unspecified Hematuria presence: without hematuria Qualified Code(s): N39.0 - Urinary tract infection, site not specified Is this a current diagnosis for this admission?: Yes (4) Metabolic encephalopathy Is this a current diagnosis for this admission?: Yes (5) HIV (human immunodeficiency virus infection) Is this a current diagnosis for this admission?: Yes (6) Atrial fibrillation with RVR Is this a current diagnosis for this admission?: Yes (7) Gram positive septicemia Is this a current diagnosis for this admission?: Yes (8) UTI (urinary tract infection) due to Enterococcus Is this a current diagnosis for this admission?: Yes (9) Enterococcus faecalis infection Is this a current diagnosis for this admission?: Yes (10) Clostridium difficile diarrhea Is this a current diagnosis for this admission?: Yes (11) Hypokalemia Is this a current diagnosis for this admission?: Yes (12) Anemia Qualifiers: Anemia type: unspecified type Qualified Code(s): D64.9 - Anemia, unspecified Is this a current diagnosis for this admission?: Yes (13) Hypernatremia Is this a current diagnosis for this admission?: Yes (14) Multifocal pneumonia Is this a current diagnosis for this admission?: Yes (15) Acute kidney injury Is this a current diagnosis for this admission?: Yes (16) Normal anion gap metabolic acidosis Is this a current diagnosis for this admission?: Yes (17) Hypernatremia Is this a current diagnosis for this admission?: Yes (18) Dehydration Is this a current diagnosis for this admission?: Yes (19) Hospital-acquired pneumonia Is this a current diagnosis for this admission?: Yes (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
[2018-02-26] MEDS: PAROXETINE HCL 20 MG TABLET PEG SCH (21:37)
[2018-02-26] MEDS: POTASSIUM CHLORIDE 20 MEQ/15 ML UDCUP PEG SCH (21:37)
[2018-02-27] MEDS: DILTIAZEM HCL 60 MG TABLET PEG SCH ×4 (01:01→17:22)
[2018-02-27] MEDS: DEXTROSE 5%-NORMAL SALINE 1,000 ML IV PRN ×2 (04:38→15:35)
[2018-02-27 05:52] LABS: HEMATOCRIT 26.5 % (37.9-51.0); HEMOGLOBIN 8.8 g/dL (13.5-17.0); MEAN CORPUSCULAR HEMOGLOBIN 30.7 pg (27.0-33.4); MEAN CORPUSCULAR HGB CONC 33.2 g/dL (32.0-36.0); MEAN CORPUSCULAR VOLUME 93 fl (80-97); PLATELET COUNT 249 10^3/uL (150-450); RED BLOOD COUNT 2.87 10^6/uL (4.35-5.55); RED CELL DISTRIBUTION WIDTH 18.1 % (11.5-14.0); WHITE BLOOD COUNT 6.6 10^3/uL (4.0-10.5)
[2018-02-27 06:12] LABS: ABSOLUTE LYMPHOCYTES# (MANUAL) 0.8 10^3/uL (0.5-4.7); ABSOLUTE MONOCYTES # (MANUAL) 1.4 10^3/uL (0.1-1.4); ABSOLUTE NEUTROPHILS# (MANUAL) 4.2 10^3/uL (1.7-8.2); BASOPHILS % (MANUAL) 0 % (0-2); EOSINOPHILS % (MANUAL) 3 % (0-6); LYMPHOCYTES % (MANUAL) 12 % (13-45); MONOCYTES % (MANUAL) 21 % (3-13); SEGMENTED NEUTROPHILS % (MAN) 64 % (42-78); TOTAL CELLS COUNTED 100
[2018-02-27 06:14] LABS: ANISOCYTOSIS 1+; PLATELET COMMENT ADEQUATE; POLYCHROMASIA SLIGHT; TARGET CELLS SLIGHT; TOXIC GRANULATION 1+
[2018-02-27 06:19] LABS: ALANINE AMINOTRANSFERASE 30 U/L (21-72); ALBUMIN 3.2 g/dL (3.5-5.0); ALKALINE PHOSPHATASE 208 U/L (38-126); ANION GAP 7 (5-19); ASPARTATE AMINO TRANSFERASE 28 U/L (17-59); BILIRUBIN,DIRECT 0.2 mg/dL (0.0-0.4); BILIRUBIN,TOTAL 0.2 mg/dL (0.2-1.3); BLOOD UREA NITROGEN 10 mg/dL (7-20); CALCIUM 9.4 mg/dL (8.4-10.2); CARBON DIOXIDE 18 mmol/L (22-30); CHLORIDE 106 mmol/L (98-107); GLUCOSE 187 mg/dL (75-110); POTASSIUM 4.7 mmol/L (3.6-5.0); SODIUM 131.2 mmol/L (137-145); TOTAL PROTEIN 7.3 g/dL (6.3-8.2)
[2018-02-27] MEDS: INSULIN LISPRO 100 UNIT/ML 3 ML VIAL SUBCUT PRN (07:42)
[2018-02-27] MEDS: RALTEGRAVIR POTASSIUM 400 MG TABLET PEG SCH ×2 (10:01→22:05)
[2018-02-27] MEDS: MEGESTROL ACETATE SUSP 400 MG/10 ML UDCUP PEG SCH (10:02)
[2018-02-27] MEDS: MUPIROCIN 2% OINTMENT 22 GM TP SCH ×2 (10:04→17:22)
[2018-02-27] MEDS: NORVIR PEG SCH (10:15)
--- NOTE | 2018-02-27 12:32 | RADIOLOGY REPORT (SQ) ---
EXAM DESCRIPTION: COOKIE SWALLOW COMPLETED DATE/TIME: 02/27/2018 9:39 am REASON FOR STUDY: aspiration COMPARISON: MODIFIED BARIUM SWALLOW 12/12/2017 TECHNIQUE: Videofluoroscopic swallowing examination was performed in conjunction with speech patholo gy. Videofluoroscopic imaging was obtained and reviewed and these are the findings: RADIATION DOSE: 1 minutes 52 seconds of fluoroscopy was used. 1 images saved to PACS. LIMITATIONS: None FINDINGS: The patient was brought into the fluoro room and placed upright on a modified barium swall ow chair. The patient was then given multiple consistencies mixed with barium to swallow under live fluoroscopic video guidance. According to the Speech Pathologist there was trace laryngeal penetrati on and aspiration of thin liquids. IMPRESSION: TRACE LARYNGEAL PENETRATION AND ASPIRATION OF THIN LIQUIDS.PLEASE SEE SPEECH PATHOLOGIST REPORT FOR OTHER FINDINGS AND RECOMMENDATIONS. COMMENT: Quality ID [id number]: Final reports for procedures using fluoroscopy that document radiation exp osure indices, or exposure time and number of fluorographic images (if radiation exposure indices are not available) TECHNICAL DOCUMENTATION: JOB ID: [id number] [employer]- All Rights Reserved Reading location - IP/workstation name: [facility]
--- NOTE | 2018-02-27 15:23 | ST Inp Modified Barium Swallow ---
Medical Diagnosis - Medical Diagnoses Medical Diagnosis Description & ICD-10 Code(s): other dysphagia R13.19, dysphagia 13.10 Inpatient [facility] [place] - General Date: 02/27/18 - History History Obtained From: Other - EMR -: Medical - This patient has a history of head and neck cancer, for which he had a PEG placed. He recently was eating by mouth, PEg used for supplimental feeds only. Recently, patient was admitted to the hospital, and had decreased alertness. He was no longer ot eat by mouth at that time Medications: Medications Reviewed Allergies: Refer to medical record - Subjective Current Nutritional Means: PEG Current PO Diet: N/A (NPO) Current Symptoms: Poor intake Pain: Patient reports, 0/5 - Objective Assessment: Upright, Left Lateral - Food Trials Food Trials Used: Thin liquids, Pureed The Patient: Required Assist - Assessment Labial Function: Within Functional Limits Lingual Function: Within Functional Limits Mandibular Function: Within Functional Limits Dentition: Partial - Pharyngeal Stage Initiation of Pharyngeal Stage: Normal Decreased Laryngeal Elevation: Yes - mild Reduced Pressure Generation: Yes Multiple Swallows With: Cleared w/ Dry Swallow Post Swallow Residuals in Valleculae: Mild Post Swallow Residuals in Pyriforms: Moderate Pahryngeal Stage Comments: Overall weak swallow seen, however, functional for trial textures. Aspiration of thin liquid seen on 1/5 trials. Residue of puree seen in pyriform sinus, but cleared with second swallow. - Esophageal Stage Esophageal Stage Comments: Some retrograde movement of bolus in upper esophagus seen. - Impression/Summary Laryngeal Penetration: Yes Tracheal Aspiration: yes, during swallow - with thin liquids Patient Presents With: Pharyngeal stage dysph., Mild-Moderate Risk of Aspiration: Mild - Recommendations NPO: no - pleasure feeds and therapeutic trials recommended Solid Diet Recommendations: Mechanical Soft Liquid Diet Recommendations: Thin Strict Aspitarion Precautions: Yes Dysphagia Therapy with CABLE SPLICER: Yes, Inpatient Recommended Techniques: Fully Upright During Meal Other Recommendations: Speech therapy to follow omar for dysphagia treatment x2 per week. - Time Total Time: 20 Total Timed Minutes: 20
--- NOTE | 2018-02-27 20:19 | PDOC PROGRESS REPORT ---
Subjective Progress Note for:: 02/27/18 Subjective:: Patient was seen by the bedside, speech evaluation was done today,. Diet recommended, patient wants to eat food, he will be transferred back to custodial tomorrow Reason For Visit: SEPSIS Physical Exam Vital Signs: Temp Pulse Resp BP Pulse Ox 98.0 F 103 H 16 138/85 H 100 02/27/18 14:53 02/27/18 14:53 02/27/18 14:53 02/27/18 14:53 02/27/18 14:53 Intake & Output 02/26/18 02/27/18 02/28/18 06:59 06:59 06:59 Intake Total 3598 4227 1612 Output Total 1900 3400 1800 Balance 1698 827 -188 Weight 59.2 kg 58.9 kg General appearance: PRESENT: no acute distress Respiratory exam: PRESENT: clear to auscultation melba Cardiovascular exam: PRESENT: +S1, +S2 GI/Abdominal exam: PRESENT: soft Neurological exam: PRESENT: alert Results Laboratory Results: 02/27/18 05:25 02/27/18 05:25 02/27/18 02/27/18 05:25 05:25 WBC 6.6 RBC 2.87 L Hgb 8.8 L Hct 26.5 L MCV 93 MCH 30.7 MCHC 33.2 RDW 18.1 H Plt Count 249 Seg Neutrophils % Not Reportable Lymphocytes % Not Reportable Monocytes % Not Reportable Eosinophils % Not Reportable Basophils % Not Reportable Absolute Neutrophils Not Reportable Absolute Lymphocytes Not Reportable Absolute Monocytes Not Reportable Absolute Eosinophils Not Reportable Absolute Basophils Not Reportable Sodium 131.2 L Potassium 4.7 Chloride 106 Carbon Dioxide 18 L Anion Gap 7 BUN 10 Creatinine 0.41 L Est GFR ( Amer) > 60 Est GFR (Non-Af Amer) > 60 Glucose 187 H Calcium 9.4 Total Bilirubin 0.2 AST 28 ALT 30 Alkaline Phosphatase 208 H Total Protein 7.3 Albumin 3.2 L 01/30/18 01/30/18 01/30/18 16:05 16:05 16:05 Creatine Kinase 277 H CK-MB (CK-2) 3.87 Troponin I 0.014 NT-Pro-B Natriuret Pep 1940 H 01/31/18 01/31/18 01/31/18 00:10 05:07 05:07 Creatine Kinase 767 H CK-MB (CK-2) 4.59 H 5.33 H Troponin I 0.016 0.013 NT-Pro-B Natriuret Pep Impressions: Abdomen/Pelvis CT 02/10/18 00:00 IMPRESSION: Multifocal airspace disease worrisome for pneumonia Diffuse bladder distention with mild bilateral hydronephrosis and hydroureter. Findings are worrisome for urinary retention Right permanent central line tip superior vena cava. G tube tip in the gastric antrum NORMAL CT OF THE ABDOMEN AND PELVIS WITHOUT INTRAVENOUS CONTRAST. Chest CT 02/10/18 00:00 IMPRESSION: Multifocal airspace disease worrisome for pneumonia Diffuse bladder distention with mild bilateral hydronephrosis and hydroureter. Findings are worrisome for urinary retention Right permanent central line tip superior vena cava. G tube tip in the gastric antrum NORMAL CT OF THE ABDOMEN AND PELVIS WITHOUT INTRAVENOUS CONTRAST. Head CT 02/15/18 00:00 IMPRESSION: Old infarcts. Microvascular ischemia. No acute imaging findings in the brain. EVIDENCE OF ACUTE STROKE: NO. Head MRI 02/16/18 00:00 IMPRESSION: Multiple old infarcts. No acute findings. EVIDENCE OF ACUTE STROKE: No Chest X-Ray 02/21/18 00:00 IMPRESSION: NO ACUTE RADIOGRAPHIC FINDING IN THE CHEST. Modified Barium Swallow 02/27/18 09:00 IMPRESSION: TRACE LARYNGEAL PENETRATION AND ASPIRATION OF THIN LIQUIDS.PLEASE SEE SPEECH PATHOLOGIST REPORT FOR OTHER FINDINGS AND RECOMMENDATIONS. Assessment & Plan - Diagnosis (1) Septic shock Is this a current diagnosis for this admission?: Yes (2) Hypotension Qualifiers: Hypotension type: unspecified hypotension type Qualified Code(s): I95.9 - Hypotension, unspecified Is this a current diagnosis for this admission?: Yes (3) Urinary tract infection Qualifiers: Urinary tract infection type: site unspecified Hematuria presence: without hematuria Qualified Code(s): N39.0 - Urinary tract infection, site not specified Is this a current diagnosis for this admission?: Yes (4) Metabolic encephalopathy Is this a current diagnosis for this admission?: Yes (5) HIV (human immunodeficiency virus infection) Is this a current diagnosis for this admission?: Yes (6) Atrial fibrillation with RVR Is this a current diagnosis for this admission?: Yes (7) Gram positive septicemia Is this a current diagnosis for this admission?: Yes (8) UTI (urinary tract infection) due to Enterococcus Is this a current diagnosis for this admission?: Yes (9) Enterococcus faecalis infection Is this a current diagnosis for this admission?: Yes (10) Clostridium difficile diarrhea Is this a current diagnosis for this admission?: Yes (11) Hypokalemia Is this a current diagnosis for this admission?: Yes (12) Anemia Qualifiers: Anemia type: unspecified type Qualified Code(s): D64.9 - Anemia, unspecified Is this a current diagnosis for this admission?: Yes (13) Hypernatremia Is this a current diagnosis for this admission?: Yes (14) Multifocal pneumonia Is this a current diagnosis for this admission?: Yes (15) Acute kidney injury Is this a current diagnosis for this admission?: Yes (16) Normal anion gap metabolic acidosis Is this a current diagnosis for this admission?: Yes (17) Hypernatremia Is this a current diagnosis for this admission?: Yes (18) Dehydration Is this a current diagnosis for this admission?: Yes (19) Hospital-acquired pneumonia Is this a current diagnosis for this admission?: Yes (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
[2018-02-27] MEDS: PAROXETINE HCL 20 MG TABLET PEG SCH (22:05)
[2018-02-27] MEDS: POTASSIUM CHLORIDE 20 MEQ/15 ML UDCUP PEG SCH (22:05)
[2018-02-28] MEDS: DILTIAZEM HCL 60 MG TABLET PEG SCH ×4 (00:04→17:14)
[2018-02-28] MEDS: INSULIN LISPRO 100 UNIT/ML 3 ML VIAL SUBCUT PRN ×3 (00:04→16:05)
[2018-02-28] MEDS: DEXTROSE 5%-NORMAL SALINE 1,000 ML IV PRN (03:09)
[2018-02-28 05:50] LABS: HEMATOCRIT 25.8 % (37.9-51.0); HEMOGLOBIN 8.6 g/dL (13.5-17.0); MEAN CORPUSCULAR HEMOGLOBIN 30.8 pg (27.0-33.4); MEAN CORPUSCULAR HGB CONC 33.4 g/dL (32.0-36.0); MEAN CORPUSCULAR VOLUME 92 fl (80-97); PLATELET COUNT 246 10^3/uL (150-450); RED CELL DISTRIBUTION WIDTH 18.5 % (11.5-14.0); WHITE BLOOD COUNT 5.8 10^3/uL (4.0-10.5)
[2018-02-28 06:13] LABS: ALANINE AMINOTRANSFERASE 36 U/L (21-72); ALBUMIN 3.1 g/dL (3.5-5.0); ALKALINE PHOSPHATASE 163 U/L (38-126); ANION GAP 11 (5-19); ASPARTATE AMINO TRANSFERASE 30 U/L (17-59); BILIRUBIN,DIRECT 0.3 mg/dL (0.0-0.4); BILIRUBIN,TOTAL 0.3 mg/dL (0.2-1.3); BLOOD UREA NITROGEN 7 mg/dL (7-20); CALCIUM 8.8 mg/dL (8.4-10.2); CARBON DIOXIDE 16 mmol/L (22-30); CHLORIDE 106 mmol/L (98-107); GLUCOSE 132 mg/dL (75-110); POTASSIUM 4.6 mmol/L (3.6-5.0); SODIUM 133.4 mmol/L (137-145); TOTAL PROTEIN 7.5 g/dL (6.3-8.2)
[2018-02-28 06:17] LABS: ABSOLUTE LYMPHOCYTES# (MANUAL) 0.3 10^3/uL (0.5-4.7); ABSOLUTE NEUTROPHILS# (MANUAL) 4.4 10^3/uL (1.7-8.2); BASOPHILS % (MANUAL) 0 % (0-2); EOSINOPHILS % (MANUAL) 1 % (0-6); HYPERSEGMENTED NEUTROPHILS PRESENT; LYMPHOCYTES % (MANUAL) 6 % (13-45); METAMYELOCYTES % (MANUAL) 1 % (0); MONOCYTES % (MANUAL) 17 % (3-13); SEGMENTED NEUTROPHILS % (MAN) 75 % (42-78); TOTAL CELLS COUNTED 100
[2018-02-28 06:18] LABS: ANISOCYTOSIS 2+; PLATELET COMMENT ADEQUATE; POLYCHROMASIA SLIGHT
[2018-02-28] MEDS: RALTEGRAVIR POTASSIUM 400 MG TABLET PEG SCH (09:28)
[2018-02-28] MEDS: NYSTATIN CREAM 15 GM TP PRN (09:29)
[2018-02-28] MEDS: MEGESTROL ACETATE SUSP 400 MG/10 ML UDCUP PEG SCH (09:29)
[2018-02-28] MEDS: MUPIROCIN 2% OINTMENT 22 GM TP SCH ×2 (09:30→17:15)
[2018-02-28] MEDS: NORVIR PEG SCH (10:00)
--- NOTE | 2018-02-28 13:35 | PDOC TRANSFER SUMMARY ---
General - Admit/Disc Date/PCP Admission Date/Primary Care Provider: 01/30/18 13:43 GE HOLMAN MD Discharge Date: 02/28/18 - Discharge Diagnosis (1) Septic shock Is this a current diagnosis for this admission?: Yes (2) Hypotension Is this a current diagnosis for this admission?: Yes (3) Urinary tract infection Is this a current diagnosis for this admission?: Yes (4) Metabolic encephalopathy Is this a current diagnosis for this admission?: Yes (5) HIV (human immunodeficiency virus infection) Is this a current diagnosis for this admission?: Yes (6) Atrial fibrillation with RVR Is this a current diagnosis for this admission?: Yes (7) Gram positive septicemia Is this a current diagnosis for this admission?: Yes (8) UTI (urinary tract infection) due to Enterococcus Is this a current diagnosis for this admission?: Yes (9) Enterococcus faecalis infection Is this a current diagnosis for this admission?: Yes (10) Clostridium difficile diarrhea Is this a current diagnosis for this admission?: Yes (11) Hypokalemia Is this a current diagnosis for this admission?: Yes (12) Anemia Is this a current diagnosis for this admission?: Yes (13) Hypernatremia Is this a current diagnosis for this admission?: Yes (14) Multifocal pneumonia Is this a current diagnosis for this admission?: Yes (15) Acute kidney injury Is this a current diagnosis for this admission?: Yes (16) Normal anion gap metabolic acidosis Is this a current diagnosis for this admission?: Yes (17) Hypernatremia Is this a current diagnosis for this admission?: Yes (18) Dehydration Is this a current diagnosis for this admission?: Yes (19) Hospital-acquired pneumonia Is this a current diagnosis for this admission?: Yes (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 (22) Urinary retention Is this a current diagnosis for this admission?: Yes - Additional Information Resuscitation Status: Full Code Prescriptions: Linagliptin [Tradjenta] 5 mg PO DAILY #180 tablet Home Medications: Amlodipine Besylate [Norvasc 10 mg Tablet] 10 mg PO DAILY 01/30/18 Atorvastatin Calcium [Lipitor 10 mg Tablet] 10 mg PO QHS 01/30/18 Insulin Lispro [Humalog Insulin (Lispro) 100 unit/mL] 0 unit SUBCUT .SLD SCALE 01/30/18 Levetiracetam [Keppra 500 mg Tablet] 500 mg PO Q12 01/30/18 Metoprolol Succinate [Toprol XL 100 mg Tablet] 150 mg PO DAILY 01/30/18 Nystatin/Dexameth/Diphen [Magic Mouthwash] 5 ml PO Q4HP PRN 01/30/18 Ondansetron HCl [Zofran 8 mg Tablet] 8 mg PO Q8HP PRN 01/30/18 Paroxetine HCl [Paxil 20 mg Tablet] 20 mg PO DAILY 01/30/18 Raltegravir Potassium [Isentress 400 mg Tablet] 400 mg PO Q12 01/30/18 Ritonavir [Norvir 100 mg Tablet] 100 mg PO DAILY 01/30/18 Valsartan [Diovan] 320 mg PO DAILY@0000 01/30/18 Zinc Oxide [Zinc Oxide 20% Ointment 28.35 gm] 1 applic TP DAILYP PRN 01/30/18 Acetaminophen [Tylenol 325 mg Tablet] 650 mg PEG Q6HP PRN tablet 02/28/18 Linagliptin [Tradjenta] 5 mg PO DAILY #180 tablet 02/28/18 History of Present Illness Admission Date/PCP: 01/30/18 13:43 GE HOLMAN MD History of Present Illness: Patient is a 57-year-old male with history of HIV disease, head and neck cancer status post radiation therapy and chemotherapy, resident of jail home undergoing rehabilitation. He was transferred from the jail home to the emergency room for evaluation of fever temperature 103, altered mental status. In the emergency room he was evaluated, CT head was done there was no acute pathology found on the CT scan, it showed old cerebral infarction. There was associated leukocytosis the white blood cell count was 19,000 with a left shift, the urine was purulent suggesting the source of sepsis, the blood pressure recorded was low in the 70s, there was associated acute kidney injury the presentation was consistent with septic shock. He was treated promptly with IV antibiotic, he was given IV fluid to stabilize blood pressure he was initially treated with IV dopamine but it was ultimately transferred to intensive care unit because he became hemodynamically unstable on the floor, he was in ICU, on IV norepinephrine. Hospital Course Hospital Course: Hospital course was prolonged, the blood culture grew Enterococcus faecalis sensitive to penicillin, he was treated with IV ampicillin, he also had E faecalis UTI. He was treated initially with IV Levophed in intensive care unit after he was stabilized he was transferred to the medical floor while on the medical floor in intermediate care unit his condition was seen with altered mental status CT chest abdomen and pelvis without contrast was done, it showed patchy bibasilar airspace disease in the posterior costophrenic sulci and patchy airspace disease in the anterior right and left upper lobe this was said to represent multifocal pneumonia, also found was diffuse urinary bladder distention with mild bilateral hydronephrosis and hydroureter findings worrisome for urinary retention, at this point boswell catheter was inserted.. He also had acute kidney injury, Clostridium difficile colitis with diarrhea this was treated with Flagyl. Because of the hospital-acquired pneumonia the antibiotic was changed to vancomycin and cefepime with Levaquin. The enterococcus specie is sensitive to vancomycin. He had hypercalcemia with suppressed PTH consistent with hypercalcemia of malignancy, he has history of head and neck cancer, this was treated with pamidronate with correlation of the hypercalcemia. He had anemia requiring blood transfusion, there was associated electrolyte derangement with hypokalemia of this were corrected he also had hyponatremia. MRI of the brain was done for evaluation of altered mental status he was also made a DNR status on this admission by his POA. The tube feed was started because he was not in the position to eat by mouth, he had a swallow study done and it was normal Physical Exam Vital Signs: Temp Pulse Resp BP Pulse Ox 98.5 F 92 12 134/81 H 100 02/28/18 11:18 02/28/18 11:18 02/28/18 11:18 02/28/18 11:18 02/28/18 11:18 Intake & Output 02/27/18 02/28/18 03/01/18 06:59 06:59 06:59 Intake Total 4227 3762 50 Output Total 3400 3500 425 Balance 827 262 -375 Weight 58.9 kg 60.2 kg General appearance: PRESENT: no acute distress Eye exam: PRESENT: PERRLA Respiratory exam: PRESENT: clear to auscultation melba Cardiovascular exam: PRESENT: +S1, +S2 GI/Abdominal exam: PRESENT: soft Neurological exam: PRESENT: alert Results Laboratory Results: 02/28/18 05:20 02/28/18 05:20 02/28/18 02/28/18 05:20 05:20 WBC 5.8 RBC 2.80 L Hgb 8.6 L Hct 25.8 L MCV 92 MCH 30.8 MCHC 33.4 RDW 18.5 H Plt Count 246 Seg Neutrophils % Not Reportable Lymphocytes % Not Reportable Monocytes % Not Reportable Eosinophils % Not Reportable Basophils % Not Reportable Absolute Neutrophils Not Reportable Absolute Lymphocytes Not Reportable Absolute Monocytes Not Reportable Absolute Eosinophils Not Reportable Absolute Basophils Not Reportable Sodium 133.4 L Potassium 4.6 Chloride 106 Carbon Dioxide 16 L Anion Gap 11 BUN 7 Creatinine 0.42 L Est GFR ( Amer) > 60 Est GFR (Non-Af Amer) > 60 Glucose 132 H Calcium 8.8 Total Bilirubin 0.3 AST 30 ALT 36 Alkaline Phosphatase 163 H Total Protein 7.5 Albumin 3.1 L 01/30/18 01/30/18 01/30/18 16:05 16:05 16:05 Creatine Kinase 277 H CK-MB (CK-2) 3.87 Troponin I 0.014 NT-Pro-B Natriuret Pep 1940 H 01/31/18 01/31/18 01/31/18 00:10 05:07 05:07 Creatine Kinase 767 H CK-MB (CK-2) 4.59 H 5.33 H Troponin I 0.016 0.013 NT-Pro-B Natriuret Pep Impressions: Abdomen/Pelvis CT 02/10/18 00:00 IMPRESSION: Multifocal airspace disease worrisome for pneumonia Diffuse bladder distention with mild bilateral hydronephrosis and hydroureter. Findings are worrisome for urinary retention Right permanent central line tip superior vena cava. G tube tip in the gastric antrum NORMAL CT OF THE ABDOMEN AND PELVIS WITHOUT INTRAVENOUS CONTRAST. Chest CT 02/10/18 00:00 IMPRESSION: Multifocal airspace disease worrisome for pneumonia Diffuse bladder distention with mild bilateral hydronephrosis and hydroureter. Findings are worrisome for urinary retention Right permanent central line tip superior vena cava. G tube tip in the gastric antrum NORMAL CT OF THE ABDOMEN AND PELVIS WITHOUT INTRAVENOUS CONTRAST. Head CT 02/15/18 00:00 IMPRESSION: Old infarcts. Microvascular ischemia. No acute imaging findings in the brain. EVIDENCE OF ACUTE STROKE: NO. Head MRI 02/16/18 00:00 IMPRESSION: Multiple old infarcts. No acute findings. EVIDENCE OF ACUTE STROKE: No Chest X-Ray 02/21/18 00:00 IMPRESSION: NO ACUTE RADIOGRAPHIC FINDING IN THE CHEST. Modified Barium Swallow 02/27/18 09:00 IMPRESSION: TRACE LARYNGEAL PENETRATION AND ASPIRATION OF THIN LIQUIDS.PLEASE SEE SPEECH PATHOLOGIST REPORT FOR OTHER FINDINGS AND RECOMMENDATIONS. Qualifiers - * PATEINT BEING DISCHARGED WITH ANY OF THE FOLLOWING DIAGNOSIS?: No
[2018-02-28 16:17] VITALS: BP 115/79
--- NOTE | 2018-03-02 12:45 | PDOC PROGRESS REPORT ---
Subjective Progress Note for:: 02/26/18 Subjective:: Awake but not particularly responsive Reason For Visit: SEPSIS Physical Exam Vital Signs: Temp Pulse Resp BP Pulse Ox 98.3 F 53 L 16 115/79 100 02/28/18 15:16 02/28/18 15:16 02/28/18 15:16 02/28/18 15:16 02/28/18 15:16 Intake & Output 02/28/18 03/01/18 03/02/18 06:59 06:59 06:59 Intake Total 3762 198 Output Total 3500 875 Balance 262 -677 Weight 60.2 kg General appearance: PRESENT: no acute distress, cooperative, disheveled, thin Head exam: PRESENT: atraumatic, normocephalic Eye exam: PRESENT: conjunctiva pale, EOMI. ABSENT: nystagmus, periorbital swelling, scleral icterus Mouth exam: PRESENT: dry mucosa, neck supple Teeth exam: PRESENT: edentulous Neck exam: ABSENT: carotid bruit, JVD, lymphadenopathy, thyromegaly, tracheal deviation, tracheostomy Respiratory exam: PRESENT: decreased breath sounds, prolonged expiratory phas, rhonchi, symmetrical, unlabored. ABSENT: rales, retraction, stridor, tachypnea Cardiovascular exam: PRESENT: RRR, +S1, +S2 Pulses: PRESENT: normal radial pulses GI/Abdominal exam: PRESENT: diminished bowel sounds, other - PEG Extremities exam: ABSENT: clubbing, joint swelling Musculoskeletal exam: ABSENT: deformity, dislocation Neurological exam: PRESENT: awake, oriented to person, oriented to place Psychiatric exam: PRESENT: flat affect Skin exam: PRESENT: dry, warm Results Laboratory Results: 02/28/18 05:20 02/28/18 05:20 01/30/18 01/30/18 01/30/18 16:05 16:05 16:05 Creatine Kinase 277 H CK-MB (CK-2) 3.87 Troponin I 0.014 NT-Pro-B Natriuret Pep 1940 H 01/31/18 01/31/18 01/31/18 00:10 05:07 05:07 Creatine Kinase 767 H CK-MB (CK-2) 4.59 H 5.33 H Troponin I 0.016 0.013 NT-Pro-B Natriuret Pep Impressions: Abdomen/Pelvis CT 02/10/18 00:00 IMPRESSION: Multifocal airspace disease worrisome for pneumonia Diffuse bladder distention with mild bilateral hydronephrosis and hydroureter. Findings are worrisome for urinary retention Right permanent central line tip superior vena cava. G tube tip in the gastric antrum NORMAL CT OF THE ABDOMEN AND PELVIS WITHOUT INTRAVENOUS CONTRAST. Chest CT 02/10/18 00:00 IMPRESSION: Multifocal airspace disease worrisome for pneumonia Diffuse bladder distention with mild bilateral hydronephrosis and hydroureter. Findings are worrisome for urinary retention Right permanent central line tip superior vena cava. G tube tip in the gastric antrum NORMAL CT OF THE ABDOMEN AND PELVIS WITHOUT INTRAVENOUS CONTRAST. Head CT 02/15/18 00:00 IMPRESSION: Old infarcts. Microvascular ischemia. No acute imaging findings in the brain. EVIDENCE OF ACUTE STROKE: NO. Head MRI 02/16/18 00:00 IMPRESSION: Multiple old infarcts. No acute findings. EVIDENCE OF ACUTE STROKE: No Chest X-Ray 02/21/18 00:00 IMPRESSION: NO ACUTE RADIOGRAPHIC FINDING IN THE CHEST. Modified Barium Swallow 02/27/18 09:00 IMPRESSION: TRACE LARYNGEAL PENETRATION AND ASPIRATION OF THIN LIQUIDS.PLEASE SEE SPEECH PATHOLOGIST REPORT FOR OTHER FINDINGS AND RECOMMENDATIONS. Assessment & Plan - Diagnosis (1) HIV (human immunodeficiency virus infection) Is this a current diagnosis for this admission?: Yes Plan: cd4/cd8 low (2) Hospital-acquired pneumonia Is this a current diagnosis for this admission?: Yes Plan: Patient lives in a healthcare facility;Right lower lobe (4) Aspiration into airway Qualifiers: Encounter type: initial encounter Qualified Code(s): T17.908A - Unspecified foreign body in respiratory tract, part unspecified causing other injury, initial encounter Is this a current diagnosis for this admission?: Yes Plan: continue current treatment (5) Clostridium difficile diarrhea Is this a current diagnosis for this admission?: Yes
--- NOTE | 2018-03-02 12:48 | PDOC PROGRESS REPORT ---
Subjective Progress Note for:: 02/28/18 Subjective:: Awake but not particularly responsive Reason For Visit: SEPSIS Physical Exam Vital Signs: Temp Pulse Resp BP Pulse Ox 98.3 F 53 L 16 115/79 100 02/28/18 15:16 02/28/18 15:16 02/28/18 15:16 02/28/18 15:16 02/28/18 15:16 Intake & Output 02/28/18 03/01/18 03/02/18 06:59 06:59 06:59 Intake Total 3762 198 Output Total 3500 875 Balance 262 -677 Weight 60.2 kg General appearance: PRESENT: no acute distress, disheveled, obese, thin Head exam: PRESENT: atraumatic, normocephalic Eye exam: PRESENT: conjunctiva pale, EOMI. ABSENT: nystagmus, periorbital swelling, scleral icterus Mouth exam: PRESENT: dry mucosa, neck supple, tongue midline Neck exam: ABSENT: carotid bruit, JVD, lymphadenopathy, thyromegaly, tracheal deviation, tracheostomy Respiratory exam: PRESENT: decreased breath sounds, prolonged expiratory phas, rhonchi, symmetrical, unlabored. ABSENT: rales, retraction, stridor, tachypnea Cardiovascular exam: PRESENT: RRR, +S1, +S2 Pulses: PRESENT: normal radial pulses GI/Abdominal exam: PRESENT: diminished bowel sounds, soft, other - PEG Extremities exam: ABSENT: clubbing, joint swelling Musculoskeletal exam: ABSENT: deformity, dislocation Neurological exam: PRESENT: awake, oriented to person, oriented to place Psychiatric exam: PRESENT: flat affect Skin exam: PRESENT: dry, warm Results Laboratory Results: 02/28/18 05:20 02/28/18 05:20 01/30/18 01/30/18 01/30/18 16:05 16:05 16:05 Creatine Kinase 277 H CK-MB (CK-2) 3.87 Troponin I 0.014 NT-Pro-B Natriuret Pep 1940 H 01/31/18 01/31/18 01/31/18 00:10 05:07 05:07 Creatine Kinase 767 H CK-MB (CK-2) 4.59 H 5.33 H Troponin I 0.016 0.013 NT-Pro-B Natriuret Pep Impressions: Abdomen/Pelvis CT 02/10/18 00:00 IMPRESSION: Multifocal airspace disease worrisome for pneumonia Diffuse bladder distention with mild bilateral hydronephrosis and hydroureter. Findings are worrisome for urinary retention Right permanent central line tip superior vena cava. G tube tip in the gastric antrum NORMAL CT OF THE ABDOMEN AND PELVIS WITHOUT INTRAVENOUS CONTRAST. Chest CT 02/10/18 00:00 IMPRESSION: Multifocal airspace disease worrisome for pneumonia Diffuse bladder distention with mild bilateral hydronephrosis and hydroureter. Findings are worrisome for urinary retention Right permanent central line tip superior vena cava. G tube tip in the gastric antrum NORMAL CT OF THE ABDOMEN AND PELVIS WITHOUT INTRAVENOUS CONTRAST. Head CT 02/15/18 00:00 IMPRESSION: Old infarcts. Microvascular ischemia. No acute imaging findings in the brain. EVIDENCE OF ACUTE STROKE: NO. Head MRI 02/16/18 00:00 IMPRESSION: Multiple old infarcts. No acute findings. EVIDENCE OF ACUTE STROKE: No Chest X-Ray 02/21/18 00:00 IMPRESSION: NO ACUTE RADIOGRAPHIC FINDING IN THE CHEST. Modified Barium Swallow 02/27/18 09:00 IMPRESSION: TRACE LARYNGEAL PENETRATION AND ASPIRATION OF THIN LIQUIDS.PLEASE SEE SPEECH PATHOLOGIST REPORT FOR OTHER FINDINGS AND RECOMMENDATIONS. Assessment & Plan - Diagnosis (1) HIV (human immunodeficiency virus infection) Is this a current diagnosis for this admission?: Yes Plan: cd4/cd8 low (2) Hospital-acquired pneumonia Is this a current diagnosis for this admission?: Yes Plan: Patient lives in a healthcare facility;Right lower lobe (4) Aspiration into airway Qualifiers: Encounter type: initial encounter Qualified Code(s): T17.908A - Unspecified foreign body in respiratory tract, part unspecified causing other injury, initial encounter Is this a current diagnosis for this admission?: Yes Plan: continue current treatment (5) Clostridium difficile diarrhea Is this a current diagnosis for this admission?: Yes
== END 2018-02-28 19:03 | DRG 974 ==
LOC: ER 11:25 → EH 13:43 → 3S 15:31 → ICU 20:14 → 3N 02-02 20:53
PROVIDERS: ADMIT Internal Medicine; ATTEND Internal Medicine
PROC: 30233N1 Transfusion of Nonautologous Red Blood Cells into Peripheral Vein, Percutaneous Approach (ICD-10-PCS; principal; 2018-02-07)
DX: A41.81 Sepsis due to Enterococcus (principal); B20 Human immunodeficiency virus [HIV] disease; R65.21 Severe sepsis with septic shock; G93.41 Metabolic encephalopathy; J18.9 Pneumonia, unspecified organism; N39.0 Urinary tract infection, site not specified; N17.9 Acute kidney failure, unspecified; C79.89 Secondary malignant neoplasm of other specified sites; A04.72 Enterocolitis due to Clostridium difficile, not specified as recurrent; E87.2 Acidosis; E87.0 Hyperosmolality and hypernatremia; Z68.1 Body mass index [BMI] 19.9 or less, adult; E87.1 Hypo-osmolality and hyponatremia; B19.20 Unspecified viral hepatitis C without hepatic coma; I25.10 Atherosclerotic heart disease of native coronary artery without angina pectoris; E78.00 Pure hypercholesterolemia, unspecified; I10 Essential (primary) hypertension; E11.9 Type 2 diabetes mellitus without complications; I48.0 Paroxysmal atrial fibrillation; E86.0 Dehydration; E83.52 Hypercalcemia; E87.6 Hypokalemia; D69.6 Thrombocytopenia, unspecified; R62.7 Adult failure to thrive; C76.0 Malignant neoplasm of head, face and neck; D64.9 Anemia, unspecified; G40.909 Epilepsy, unspecified, not intractable, without status epilepticus; Y95 Nosocomial condition; B95.2 Enterococcus as the cause of diseases classified elsewhere; Z93.1 Gastrostomy status; Z79.84 Long term (current) use of oral hypoglycemic drugs; Z79.4 Long term (current) use of insulin; Z79.899 Other long term (current) drug therapy
CPT/HCPCS: 36415; 36430; 36600; 51702; 70450; 70553; 71045; 71046; 71250; 74176; 74230; 80048; 80053; 80061; 80202; 80307; 81001; 82140; 82150; 82271; 82272; 82550; 82553; 82565; 82803; 82962; 83036; 83605; 83690; 83735; 83880; 83970; 84100; 84439; 84443; 84484; 85025; 85027; 85610; 85730; 86360; 86777; 86778; 86850; 86900; 86901; 86920; 87040; 87077; 87086; 87088; 87186; 87493; 87536; 93005; 93010; 96365; 99291; G8978-GP; G8979-GP; G8996-GN; G8997-GN; G8998-GN; J0290; J0692; J0878; J1630; J1644; J1815; J1940; J2430; J2543; J3370; J3475; J3480; J3490; J7030; J7060; P9016

== ENCOUNTER 2018-03-02 19:33 | Inpatient (IN) | payer MEDICARE, MEDICAID ==
[2018-03-02] MEDS ORDERED: VANCOMYCIN HCL INJ 1000 MG VIAL IV ONE (19:42)
[2018-03-02] MEDS ORDERED: LIDOCAINE 2% URO-JET 5 ML KIT MM ONE (19:42)
[2018-03-02] MEDS ORDERED: NORMAL SALINE 1000 ML 1,000 ML IV ONE ×2 (19:42→23:37)
[2018-03-02] MEDS ORDERED: PIPERACILLIN/TAZOBACTAM 3.375 GM VIAL IV ONE (19:43)
--- NOTE | 2018-03-02 20:17 | ER Document Report ---
ED General - General Chief Complaint: Chest Pain Stated Complaint: CHEST PAIN Time Seen by Provider: 03/02/18 19:41 Notes: The patient is a 57-year-old male, past medical history HIV, hep C, chronic G- tube, presents by EMS with altered mental status over the past day. He was discharged from an extended stay at [facility] 2 days ago for septic shock. According to the sister, who is POA, patient is having increased confusion. He is oriented to person, but not oriented to place or time. Unable to provide any additional history, but he denies any pain at this time. TRAVEL OUTSIDE OF THE [place] IN LAST 30 DAYS: No - Related Data Allergies/Adverse Reactions: No Known Drug Allergies Allergy (Verified 11/08/17 12:12) olive extract [[place]] Allergy (Verified 11/08/17 12:10) Shortness of Breath Past Medical History - General Information source: Patient Cannot obtain history due to: Altered mental status - Social History Smoking Status: Former Smoker Family History: Reviewed & Not Pertinent Patient has suicidal ideation: No Patient has homicidal ideation: No - Past Medical History Cardiac Medical History: Reports: Hx Coronary Artery Disease, Hx Hypercholesterolemia, Hx Hypertension Denies: Hx Heart Attack Pulmonary Medical History: Reports: Hx Pneumonia Denies: Hx Asthma, Hx Bronchitis, Hx COPD, Hx Tuberculosis Neurological Medical History: Reports: Hx Seizures - LAST ONE 3 WEEKS . Denies : Hx Cerebrovascular Accident Endocrine Medical History: Reports: Hx Diabetes Mellitus Type 2 Renal/ Medical History: Denies: Hx Peritoneal Dialysis GI Medical History: Reports: Hx Hepatitis - HEP C,HIV+. Denies: Hx Hiatal Hernia, Hx Ulcer Musculoskeltal Medical History: Reports Hx Arthritis Psychiatric Medical History: Denies: Hx Depression Infectious Medical History: Reports: Hx Hepatitis - HEP C,HIV+, Hx HIV Past Surgical History: Reports: Hx Cardiac Catheterization, Hx Cardiac Surgery - stent placement, Hx Coronary Stent, Hx Orthopedic Surgery - lumbar surgery, Other - peg. Denies: Hx Open Heart Surgery, Hx Pacemaker - Immunizations Hx Diphtheria, Pertussis, Tetanus Vaccination: Yes - one year per pt. Review of Systems - Review of Systems -: Yes ROS unobtainable due to patient's medical condition Physical Exam - Vital signs Vitals: Resp 23 H 03/02/18 19:58 - Notes Notes: PHYSICAL EXAMINATION: GENERAL: Chronically-ill appearing. No acute distress. HEAD: Atraumatic, normocephalic. EYES: Pupils equal round and reactive to light, extraocular movements intact, sclera anicteric, conjunctiva are normal. ENT: nares patent, oropharynx clear without exudates. Dry mucous membranes. NECK: Normal range of motion, supple without lymphadenopathy LUNGS: Breath sounds clear to auscultation bilaterally and equal. No wheezes rales or rhonchi. HEART: Tachycardia, regular rhythm. ABDOMEN: G-tube in place. Soft, nontender, normoactive bowel sounds. No guarding, no rebound. No masses appreciated. EXTREMITIES: Normal range of motion, no pitting or edema. No cyanosis. NEUROLOGICAL: Moves all 4 extremities. No sensory deficits. AAO 1. SKIN: Dry scaly skin. Course - Re-evaluation Re-evalutation: Patient tachycardic, slightly hypotensive with a elevated leukocytosis compared to 2 nights ago. With his history of HIV, concern for meningitis. LP attempted multiple times with a small amount of thick purulent drainage before the LP needle clogged again. Patient covered with broad-spectrum antibiotics and amphotericin started due to concern about cryptococcus meningitis. CTA ordered due to concern about PE with tachycardia and recent hospitalization, but no PE was found. Spoke to sister who is the POA about patient's goal of care and she agrees with antibiotics, IV fluids and lumbar puncture, but she confirms that he is DNR and DNI. 03/02/18 22:[address] Holman's phone and paged him to speak about admission. 03/02/18 23:[address] Holman and will admit patient to [facility] as Inpatient. - Vital Signs Vital signs: Temp Pulse Resp BP Pulse Ox 99.9 F 28 H 94/73 L 100 03/02/18 20:05 03/02/18 23:31 03/02/18 23:31 03/02/18 21:01 - Laboratory Result Diagrams: 03/02/18 20:54 03/02/18 20:54 Laboratory results interpreted by me: 03/02/18 03/02/18 03/02/18 20:54 20:54 20:54 WBC 18.5 H D RBC 3.09 L Hgb 9.4 L Hct 29.0 L RDW 19.6 H Seg Neutrophils % 83.7 H Lymphocytes % 6.2 L Absolute Neutrophils 15.5 H Absolute Monocytes 1.9 H PT 16.3 H VBG pCO2 VBG HCO3 Chloride 112 H Carbon Dioxide 12 L BUN 22 H Glucose 132 H Total Bilirubin 1.5 H Direct Bilirubin 1.1 H AST 65 H Alkaline Phosphatase 153 H Creatine Kinase < 20 L 03/02/18 20:54 WBC RBC Hgb Hct RDW Seg Neutrophils % Lymphocytes % Absolute Neutrophils Absolute Monocytes PT VBG pCO2 23.9 L VBG HCO3 14.0 L Chloride Carbon Dioxide BUN Glucose Total Bilirubin Direct Bilirubin AST Alkaline Phosphatase Creatine Kinase - Diagnostic Test Radiology reviewed: Image reviewed, Reports reviewed Radiology results interpreted by me: CTA Chest: UNREMARKABLE CTA CHEST WITHOUT PULMONARY EMBOLI. INTERVAL IMPROVEMENT OF PREVIOUSLY IDENTIFIED MULTIFOCAL AIRSPACE DISEASE WITH NEW TREE- IN-BUD IN NODULAR OPACITIES IN THE RIGHT UPPER AND RIGHT LOWER LOBES SUSPICIOUS FOR RECURRENT PNEUMONITIS/PNEUMONIA. - EKG Interpretation by Me EKG shows normal: Sinus rhythm, [place] Rate: Tachycardia Procedures - Lumbar Puncture Lumbar puncture Time completed: 22:54 Consent obtained: Yes - From Sister who is POA Lumbar puncture pre-procedure: Sterile PPE donned, Chloraprep applied, Sterile drapes applied Patient position: Lying Needle size: 22 Lumbar puncture location: L3-L4 Anesthetic type: 1% Lidocaine mL's of anesthetic: 5 Amount/type of drainage: 0.5 mL purulent drainage Number of attempts: 6 Complications: No Notes: Thick purulent drainage, only 0.5 mL obtained. Critical Care Note - Critical Care Note Total time excluding time spent on procedures (mins): 45 Discharge - Discharge Clinical Impression: Meningitis Sepsis Qualifiers: Sepsis type: sepsis due to unspecified organism Qualified Code(s): A41.9 - Sepsis, unspecified organism Condition: Poor Disposition: ADMITTED INPATIENT Admitting Provider: Cher Unit Admitted: IMCU Referrals: GE HOLMAN MD [Primary Care Provider] - Follow up as needed
--- NOTE | 2018-03-02 20:19 | RADIOLOGY REPORT (SQ) ---
EXAM DESCRIPTION: CHEST SINGLE VIEW COMPLETED DATE/TIME: 03/02/2018 8:03 pm REASON FOR STUDY: sepsis COMPARISON: 02/21/2018 EXAM PARAMETERS: NUMBER OF VIEWS: One view. TECHNIQUE: Single frontal radiographic view of the chest acquired. RADIATION DOSE: NA LIMITATIONS: None. FINDINGS: LUNGS AND PLEURA: No opacities, masses or pneumothorax. No pleural effusion. MEDIASTINUM AND HILAR STRUCTURES: No masses. Contour normal. HEART AND VASCULAR STRUCTURES: Heart normal in size. Normal vasculature. BONES: No acute findings. HARDWARE: STABLE. OTHER: No other significant finding. IMPRESSION: NO ACUTE RADIOGRAPHIC FINDING IN THE CHEST. NO SIGNIFICANT CHANGE FROM PRIOR STUDY. TECHNICAL DOCUMENTATION: JOB ID: [id number] [employer]- All Rights Reserved Reading location - IP/workstation name: [email or web address]
[2018-03-02] MEDS ORDERED: CEFTRIAXONE 2 GM/D5W RTU 2 GM/50 ML RTUPB IV SCH (21:00)
[2018-03-02] MEDS ORDERED: CEFTRIAXONE 2 GM/D5W RTU 2 GM/50 ML RTUPB IV ONE (21:11)
[2018-03-02 21:18] LABS: ABSOLUTE LYMPHOCYTES (AUTO) 1.1 10^3/uL (0.5-4.7); ABSOLUTE MONOCYTES (AUTO) 1.9 10^3/uL (0.1-1.4); ABSOLUTE NEUT (AUTO) 15.5 10^3/uL (1.7-8.2); BASOPHILS % (AUTO) 0.1 % (0-2); HEMOGLOBIN 9.4 g/dL (13.5-17.0); LYMPHOCYTES % (AUTO) 6.2 % (13-45); MEAN CORPUSCULAR HEMOGLOBIN 30.4 pg (27.0-33.4); MEAN CORPUSCULAR HGB CONC 32.4 g/dL (32.0-36.0); MEAN CORPUSCULAR VOLUME 94 fl (80-97); PLATELET COUNT 319 10^3/uL (150-450); RED BLOOD COUNT 3.09 10^6/uL (4.35-5.55); RED CELL DISTRIBUTION WIDTH 19.6 % (11.5-14.0); SEGMENTED NEUTROPHILS % (AUTO) 83.7 % (42-78); TOTAL CELLS COUNTED % (AUTO) 100 %
[2018-03-02 21:19] LABS: VENOUS BLOOD BASE EXCESS -8.2 mmol/L; VENOUS BLOOD PCO2 23.9 mmHg (35-63); VENOUS BLOOD PH 7.39 (7.30-7.42)
[2018-03-02 21:20] LABS: WHITE BLOOD COUNT 18.5 10^3/uL (4.0-10.5)
[2018-03-02 21:27] LABS: INTERNATIONAL RATION (INR) 1.25; PROTHROMBIN TIME 16.3 SEC (11.4-15.4)
[2018-03-02 21:36] LABS: ALANINE AMINOTRANSFERASE 68 U/L (21-72); ALBUMIN 3.6 g/dL (3.5-5.0); ALKALINE PHOSPHATASE 153 U/L (38-126); ANION GAP 18 (5-19); ASPARTATE AMINO TRANSFERASE 65 U/L (17-59); BILIRUBIN,DIRECT 1.1 mg/dL (0.0-0.4); BILIRUBIN,TOTAL 1.5 mg/dL (0.2-1.3); BLOOD UREA NITROGEN 22 mg/dL (7-20); CALCIUM 9.3 mg/dL (8.4-10.2); CARBON DIOXIDE 12 mmol/L (22-30); CHLORIDE 112 mmol/L (98-107); GLUCOSE 132 mg/dL (75-110); POTASSIUM 4.7 mmol/L (3.6-5.0); SODIUM 141.5 mmol/L (137-145); TOTAL PROTEIN 7.9 g/dL (6.3-8.2)
[2018-03-02 21:40] LABS: CREATINE KINASE < 20 U/L (55-170)
--- NOTE | 2018-03-02 22:25 | RADIOLOGY REPORT (SQ) ---
EXAM DESCRIPTION: CTA CHEST COMPLETED DATE/TIME: 03/02/2018 10:11 pm REASON FOR STUDY: tachycardia, tachypnea, recent hospitalization COMPARISON: 02/10/2018. TECHNIQUE: CT scan of the chest performed using helical scanning technique with dynamic intravenous contrast injection. Images reviewed with lung, soft tissue and bone windows. Reconstructed coronal and sagittal MPR images reviewed. Additional 3 dimensional post-processing performed to develop Maximal Intensity Projection images (OK P). All images stored on PACS. All CT scanners at this facility use dose modulation, iterative reconstruction, and/or weight based d osing when appropriate to reduce radiation dose to as low as reasonably achievable (ALARA). [facility]: Dose Right [facility]: CareDose [facility]: Dose Right [facility]: Teradose 4D [facility]: Estech CONTRAST TYPE AND DOSE: contrast/concentration: Isovue 370.00 mg/ml; Total Contrast Delivered: 90.0 ml; Total Saline Delivered: 75.0 ml Contrast bolus optimized for the pulmonary arteries. Not diagnostic for the aorta. RENAL FUNCTION: GFR > 60. RADIATION DOSE: CT Rad equipment meets quality standard of care and radiation dose reduction techniq ues were employed. CTDIvol: 9.9 - 14.3 mGy. DLP: 594 mGy-cm. . LIMITATIONS: None. FINDINGS: LUNGS AND PLEURA: There is been interval improvement of multifocal airspace disease with n ew tree-in-bud and nodular opacities involving the right upper lobe and superior segment of the right lower lobe suspicious for recurrent pneumonitis/pneumonia. No pleural effusion or pneumothorax. AORTA AND GREAT VESSELS: No aneurysm. Contrast bolus not optimized for the aorta. HEART: No pericardial effusion. No significant coronary artery calcifications. PULMONARY ARTERIES: No emboli visualized in the main pulmonary arteries or the segmental branches. HILAR AND MEDIASTINAL STRUCTURES: No identified masses or abnormal nodes. HARDWARE: Stable. UPPER ABDOMEN: NO SIGNIFICANT from prior study. Limited examination. THYROID AND OTHER SOFT TISSUES: No masses. No adenopathy. BONES: No acute or significant finding. 3D MIPS: Confirm above findings. OTHER: No other significant finding. IMPRESSION: UNREMARKABLE CTA CHEST WITHOUT PULMONARY EMBOLI. INTERVAL IMPROVEMENT OF PREVIOUSLY IDENTIFIED MULTIFOCAL AIRSPACE DISEASE WITH NEW TREE-IN-BUD IN NOD ULAR OPACITIES IN THE RIGHT UPPER AND RIGHT LOWER LOBES SUSPICIOUS FOR RECURRENT PNEUMONITIS/PNEUMONI A. COMMENT: Quality ID # [id number]: Final reports with documentation of one or more dose reduction techniques (e.g., Automated exposure control, adjustment of the mA and/or kV according to patient size, use of iterative reconstruction technique) TECHNICAL DOCUMENTATION: JOB ID: [id number] [employer]- All Rights Reserved Reading location - IP/workstation name: [email or web address]
[2018-03-02] MEDS ORDERED: AMPHOTERICIN B 50 MG VIAL IV ONE (22:50)
[2018-03-03] MEDS ORDERED: DIPHENHYDRAMINE HCL 50 MG/ML VIAL IV ONE (00:10)
[2018-03-03] MEDS ORDERED: METHYLPREDNISOLONE INJ 125 MG/2 ML SDV IV ONE (00:11)
[2018-03-03 00:22] LABS: APPEARANCE,URINE SLIGHTLY-CLOUDY; BILIRUBIN,URINE NEGATIVE (NEGATIVE); COLOR,URINE YELLOW; GLUCOSE, URINE 50 mg/dL (NEGATIVE); KETONES,URINE NEGATIVE (NEGATIVE); LEUKOCYTE ESTERASE,URINE SMALL (NEGATIVE); NITRITE,URINE NEGATIVE (NEGATIVE); PROTEIN,URINE 100 mg/dL (NEGATIVE); URINE SPECIFIC GRAVITY 1.014; UROBILINOGEN,URINE NEGATIVE mg/dL (<2.0)
[2018-03-03] MEDS ORDERED: VANCOMYCIN HCL 0 MG in DEXTROSE 5%-WATER 250 ML IV NR (01:00)
[2018-03-03] MEDS ORDERED: AMPICILLIN SODIUM 1 GM in NORMAL SALINE 50 ML IV ONE (01:15)
[2018-03-03] MEDS ORDERED: DEXAMETHASONE SOD PHOS INJ 10 MG/1 ML VIAL IV ONE (01:15)
[2018-03-03] MEDS ORDERED: AMPICILLIN SOD INJ 1 GM VIAL IV PRN (01:20)
[2018-03-03] MEDS ORDERED: DILTIAZEM HCL/D5W 125 MG/125 ML RTUINJ IV ONE (04:20)
[2018-03-03] MEDS ORDERED: AMPICILLIN SOD INJ 2 GM VIAL ONE (06:21)
[2018-03-03] MEDS ORDERED: AMPICILLIN SOD INJ 1 GM VIAL ONE (06:22)
[2018-03-03] MEDS: HEPARIN SOD (PORCINE) 5,000 UNIT/ML 1 ML SYRINGE SUBCUT SCH ×3 (06:41→22:58)
[2018-03-03] MEDS: DEXAMETHASONE SOD PHOS INJ 10 MG/1 ML VIAL IV SCH ×4 (06:41→23:29)
[2018-03-03] MEDS: AMPICILLIN SODIUM 1 GM in NORMAL SALINE 50 ML IV SCH ×4 (06:42→23:29)
--- NOTE | 2018-03-03 08:42 | EKG REPORT ---
SEVERITY:- ABNORMAL ECG - SINUS TACHYCARDIA WITH IRREGULAR RATE [id number] FREQUENT PACS. : Confirmed by: Neel Burk MD 03-Mar-2018 08:42:08
--- NOTE | 2018-03-03 08:44 | EKG REPORT ---
SEVERITY:- ABNORMAL ECG - SINUS TACHYCARDIA WITH IRREGULAR RATE [id number] FREQUENT PACS : Confirmed by: Neel Burk MD 03-Mar-2018 08:43:11
[2018-03-03] MEDS: VANCOMYCIN HCL 750 MG in DEXTROSE 5%-WATER 250 ML IV SCH ×2 (09:52→22:58)
--- NOTE | 2018-03-03 12:10 | PDOC H&P ---
History of Present Illness Admission Date/PCP: 03/02/18 23:54 GE HOLMAN MD History of Present Illness: RAE MONTEMAYOR is a 57 year old male was just discharged from this hospital on 2017 after prolonged hospitalization for septic shock due to Enterococcus faecalis septicemia associated with Pneumonia ,at that time he was treated with intravenous ampicillin, vancomycin, cefepime he also had Clostridium difficile colitis requiring Flagyl. The last time he was admitted he had encephalopathy which was due to multiple factors including hyponatremia, sepsis, hypercalcemia , he has hypercalcemia of malignancy this was corrected with pamidronate. The last time he was admitted, he improved before was discharged back to [facility] of care. He came to the emergency room last night for evaluation of altered mental status and chest pain,Part of the evaluation included a CTA chest, the CTA chest showed interval improvement of multifocal airspace disease with the new tree-in-bud and nodular opacities involving the right upper lobe and superior segment of the right lower lobe suspicious for recurrent pneumonitis no pleural effusion or pneumothorax. In the emergency room lumbar puncture was attempted but it was not successful the emergency room physician called me to advise me that the lumbar puncture return was purulent suggesting that he may have meningitis though there was no CSF fluid that was collected for analysis,on the basis of this suspicion patient was started on intravenous Decadron, Rocephin, vancomycin and ampicillin empirically to cover potential pathogens including listeria species. Dexamethasone is recommended for suspected or confirmed bacterial meningitis to be used, 0.1 mg/kg body weight IV every 6 hours for 4 days I am not overly convinced that he has meningitis, the last time he was admitted which was recently he was treated for prolonged period of time with IV antibiotic including vancomycin cefepime ampicillin, typically the duration of treatment for meningitis is 10-14 days at the most 21 days and this patient was hospitalized for over 3 weeks the last time he was in the hospital. He will empirically be treated for presumptive meningitis, a fluoroscopy guided lumbar puncture will be obtained today to clarify if he has meningitis . Past Medical History Cardiac Medical History: Reports: Coronary Artery Disease, Hyperlipidema, Hypertension Pulmonary Medical History: Reports: Chronic Obstructive Pulmonary Disease (COPD) , Pneumonia Neurological Medical History: Reports: Seizures - LAST ONE 3 WEEKS Endocrine Medical History: Reports: Diabetes Mellitus Type 2 Malignancy Medical History: Reports: Other - Head and neck cancer GI Medical History: Reports: Hepatitis - HEP C,HIV+ Musculoskeltal Medical History: Reports: Arthritis Infectious Medical History: Reports: Clostridium Difficile, HIV, Vancomycin- Resistant Enterococci Past Surgical History Past Surgical History: Reports: Cardiac Catheterization, Coronary Stent, Orthopedic Surgery - lumbar surgery, Other - peg Social History Smoking Status: Former Smoker Frequency of Alcohol Use: None Hx Recreational Drug Use: No - former drug user Drugs: None Hx Prescription Drug Abuse: No Family History Family History: Reviewed & Not Pertinent Parental Family History Reviewed: Yes Children Family History Reviewed: Yes Sibling(s) Family History Reviewed.: Yes Medication/Allergy Home Medications: Acetaminophen [Tylenol 325 mg Tablet] 650 mg PEG Q6HP PRN 03/03/18 Amlodipine Besylate [Norvasc 10 mg Tablet] 10 mg PO DAILY 03/03/18 Atorvastatin Calcium [Lipitor 10 mg Tablet] 10 mg PO QHS 03/03/18 Insulin Lispro [Humalog Insulin (Lispro) 100 unit/mL] 0 units SQ .PERSLIDINGSCALE 03/03/18 Levetiracetam [Keppra 500 mg Tablet] 500 mg PO Q12 03/03/18 Linagliptin [Tradjenta] 5 mg PO DAILY 03/03/18 Metoprolol Succinate [Toprol XL 100 mg Tablet] 150 mg PO DAILY 03/03/18 Nystatin/Dexameth/Diphen [Magic Mouthwash] 5 ml PO Q4HP PRN 03/03/18 Ondansetron HCl [Zofran 8 mg Tablet] 8 mg PO Q8HP PRN 03/03/18 Paroxetine HCl [Paxil 20 mg Tablet] 20 mg PO DAILY 03/03/18 Raltegravir Potassium [Isentress 400 mg Tablet] 400 mg PO Q12 03/03/18 Ritonavir [Norvir 100 mg Tablet] 100 mg PO DAILY 03/03/18 Valsartan [Diovan] 320 mg PO QHS 03/03/18 Zinc Oxide [Zinc Oxide 20% Ointment 28.35 gm] 1 applic TOP DAILYP PRN 03/03/18 Allergies/Adverse Reactions: No Known Drug Allergies Allergy (Verified 11/08/17 12:12) olive extract [[place]] Allergy (Verified 11/08/17 12:10) Shortness of Breath Review of Systems ROS unobtainable: Due to mental status Constitutional: PRESENT: chills, weight loss Physical Exam Vital Signs: Temp Pulse Resp BP Pulse Ox 98.6 F 115 H 14 125/74 100 03/03/18 08:08 03/03/18 09:00 03/03/18 08:08 03/03/18 09:00 03/03/18 05:39 Intake & Output 03/02/18 03/03/18 03/04/18 06:59 06:59 06:59 Intake Total 100 Output Total 2300 Balance -2200 Weight 50.3 kg General appearance: PRESENT: mild distress Eye exam: PRESENT: PERRLA Mouth exam: PRESENT: dry mucosa Teeth exam: PRESENT: poor dentation Respiratory exam: PRESENT: decreased breath sounds Cardiovascular exam: PRESENT: +S1, +S2 GI/Abdominal exam: PRESENT: soft, other - There is a PEG tube in place Neurological exam: PRESENT: alert, altered Results Impressions: Chest X-Ray 03/02/18 19:43 IMPRESSION: NO ACUTE RADIOGRAPHIC FINDING IN THE CHEST. NO SIGNIFICANT CHANGE FROM PRIOR STUDY. Chest/Abdomen CTA 03/02/18 20:35 IMPRESSION: UNREMARKABLE CTA CHEST WITHOUT PULMONARY EMBOLI. INTERVAL IMPROVEMENT OF PREVIOUSLY IDENTIFIED MULTIFOCAL AIRSPACE DISEASE WITH NEW TREE-IN-BUD IN NODULAR OPACITIES IN THE RIGHT UPPER AND RIGHT LOWER LOBES SUSPICIOUS FOR RECURRENT PNEUMONITIS/PNEUMONIA. Assessment & Plan - Diagnosis (1) Meningitis Is this a current diagnosis for this admission?: Yes Plan: He is admitted for the management of presumptive meningitis (2) HIV (human immunodeficiency virus infection) Is this a current diagnosis for this admission?: Yes (3) Head and neck cancer Is this a current diagnosis for this admission?: Yes
[2018-03-03] MEDS: DILTIAZEM HCL/D5W 125 MG/125 ML RTUINJ IV PRN ×2 (12:31→19:37)
[2018-03-03 13:08] LABS: INTERNATIONAL RATION (INR) 1.31; PROTHROMBIN TIME 16.9 SEC (11.4-15.4)
[2018-03-03 13:13] LABS: HEMOGLOBIN 8.1 g/dL (13.5-17.0); MEAN CORPUSCULAR HEMOGLOBIN 30.8 pg (27.0-33.4); MEAN CORPUSCULAR HGB CONC 32.4 g/dL (32.0-36.0); MEAN CORPUSCULAR VOLUME 95 fl (80-97); PLATELET COUNT 272 10^3/uL (150-450); RED BLOOD COUNT 2.63 10^6/uL (4.35-5.55); WHITE BLOOD COUNT 12.3 10^3/uL (4.0-10.5)
[2018-03-03 13:16] LABS: ALANINE AMINOTRANSFERASE 57 U/L (21-72); ALBUMIN 3.1 g/dL (3.5-5.0); ALKALINE PHOSPHATASE 122 U/L (38-126); ANION GAP 15 (5-19); ASPARTATE AMINO TRANSFERASE 46 U/L (17-59); BILIRUBIN,DIRECT 0.7 mg/dL (0.0-0.4); BILIRUBIN,TOTAL 0.7 mg/dL (0.2-1.3); BLOOD UREA NITROGEN 13 mg/dL (7-20); CALCIUM 8.5 mg/dL (8.4-10.2); CARBON DIOXIDE 12 mmol/L (22-30); CHLORIDE 116 mmol/L (98-107); GLUCOSE 241 mg/dL (75-110); SODIUM 143.3 mmol/L (137-145); TOTAL PROTEIN 7.1 g/dL (6.3-8.2)
[2018-03-03 13:22] LABS: POTASSIUM 3.7 mmol/L (3.6-5.0)
[2018-03-03 13:51] LABS: ABSOLUTE LYMPHOCYTES# (MANUAL) 0.2 10^3/uL (0.5-4.7); ABSOLUTE MONOCYTES # (MANUAL) 0.1 10^3/uL (0.1-1.4); ABSOLUTE NEUTROPHILS# (MANUAL) 11.9 10^3/uL (1.7-8.2); BASOPHILS % (MANUAL) 0 % (0-2); EOSINOPHILS % (MANUAL) 0 % (0-6); LYMPHOCYTES % (MANUAL) 2 % (13-45); MONOCYTES % (MANUAL) 1 % (3-13); SEGMENTED NEUTROPHILS % (MAN) 97 % (42-78); TOTAL CELLS COUNTED 100
[2018-03-03 13:54] LABS: ANISOCYTOSIS 2+; PLATELET COMMENT ADEQUATE; PLATELET LARGE PRESENT; POLYCHROMASIA SLIGHT; TOXIC GRANULATION 1+; TOXIC VACUOLATION PRESENT
--- NOTE | 2018-03-03 15:33 | RADIOLOGY REPORT (SQ) ---
EXAM DESCRIPTION: LUMBAR PUNCTURE COMPLETED DATE/TIME: 03/03/2018 3:01 pm REASON FOR STUDY: Meningitis COMPARISON: MRI and CT of the brain. FLUOROSCOPY TIME: 36 seconds 3 images saved to PACS. TECHNIQUE: Fluoroscopic guided lumbar puncture. LIMITATIONS: Dry tap. PROCEDURE: After written consent and assessment were obtained, the patient was brought into the fluo roscopy room and placed prone on the table. The patient's lower back was prepped in a sterile fashio n and an entry site was selected under live fluoroscopic guidance. The entry site was anesthetized wi th 1% lidocaine. A 20 gauge needle was advanced through the skin and into the thecal sac at the level of L4-L5 and then at L3-L4. 2 attempts were made due to dry tap at L4-L5. I could feel piercing th rough the thecal sac however no CSF fluid returned. Table was tilted in attempts to encourage CSF fl uid flow. After that failed I attempted a level above L3-L4. Same result. Cross-table lateral was obtained to check for that. Patient was slightly lateral 1 obtaining cross-table lateral higher does show proper depth. A fluoroscopic spot image was saved to PACS confirming level access. FINDINGS: Dry tap IMPRESSION: Attempted lumbar puncture under fluoroscopy. Confirmation of needle placement was perfo rmed. Spoke with ordering physician. Recommend repeating lumbar puncture after IV hydration COMMENT: Patient medication list reviewed: Yes- Quality ID# [id number]:Eligible professional attests to doc umenting in the medical record they obtained, updated, or reviewed the patient's current medications. . Quality ID 145: Final reports for procedures using fluoroscopy that document radiation exposure ines russell, or exposure time and number of fluorographic images (if radiation exposure indices are not avail able) TECHNICAL DOCUMENTATION: JOB ID: [id number] [employer]- All Rights Reserved Reading location - IP/workstation name: [email or web address]
[2018-03-03] MEDS ORDERED: DEXTROSE 40% GEL 15 GM TUBE X 2 PO PRN (16:22)
[2018-03-03] MEDS ORDERED: DEXTROSE 50%-WATER SYRINGE 25 GM/50 ML DOSE IV PRN (16:22)
[2018-03-03] MEDS ORDERED: GLUCAGON,HUMAN RECOMB 1 MG INJ IM PRN (16:22)
[2018-03-03] MEDS ORDERED: DEXTROSE 50%-WATER SYRINGE 12.5 GM/25 ML DOSE IV PRN (16:22)
[2018-03-03] MEDS ORDERED: DEXTROSE 40% GEL 15 GM TUBE PO PRN (16:22)
--- NOTE | 2018-03-03 16:43 | RADIOLOGY REPORT (SQ) ---
EXAM DESCRIPTION: FLUORO/NEEDLE PLACEMENT COMPLETE DATE/TIME: 03/03/2018 3:01 pm REASON FOR STUDY: ? meningitis FINDINGS: Please see combined report for performance of procedure and radiologic supervision and int erpretation. IMPRESSION: Please see combined report for performance of procedure and radiologic supervision and i nterpretation. Reading location - IP/workstation name: [email or web address]
[2018-03-03] MEDS: INSULIN LISPRO 100 UNIT/ML 3 ML VIAL SUBCUT PRN ×2 (18:44→22:58)
[2018-03-03] MEDS: CEFTRIAXONE 2 GM/D5W RTU 2 GM/50 ML RTUPB IV SCH (22:58)
[2018-03-04 05:02] LABS: ABSOLUTE LYMPHOCYTES (AUTO) 0.5 10^3/uL (0.5-4.7); ABSOLUTE MONOCYTES (AUTO) 0.4 10^3/uL (0.1-1.4); ABSOLUTE NEUT (AUTO) 5.9 10^3/uL (1.7-8.2); BASOPHILS % (AUTO) 0.1 % (0-2); LYMPHOCYTES % (AUTO) 6.7 % (13-45); MEAN CORPUSCULAR HEMOGLOBIN 31.4 pg (27.0-33.4); MEAN CORPUSCULAR HGB CONC 33.3 g/dL (32.0-36.0); MEAN CORPUSCULAR VOLUME 94 fl (80-97); MONOCYTES % (AUTO) 6.5 % (3-13); PLATELET COUNT 239 10^3/uL (150-450); RED BLOOD COUNT 2.55 10^6/uL (4.35-5.55); RED CELL DISTRIBUTION WIDTH 19.3 % (11.5-14.0); SEGMENTED NEUTROPHILS % (AUTO) 86.7 % (42-78); TOTAL CELLS COUNTED % (AUTO) 100 %; WHITE BLOOD COUNT 6.8 10^3/uL (4.0-10.5)
[2018-03-04] MEDS: DEXAMETHASONE SOD PHOS INJ 10 MG/1 ML VIAL IV SCH ×3 (05:22→17:23)
[2018-03-04] MEDS: HEPARIN SOD (PORCINE) 5,000 UNIT/ML 1 ML SYRINGE SUBCUT SCH ×3 (05:25→22:25)
[2018-03-04] MEDS: AMPICILLIN SODIUM 1 GM in NORMAL SALINE 50 ML IV SCH ×3 (05:32→17:21)
[2018-03-04 05:34] LABS: ANION GAP 15 (5-19); BLOOD UREA NITROGEN 14 mg/dL (7-20); CALCIUM 8.2 mg/dL (8.4-10.2); CARBON DIOXIDE 14 mmol/L (22-30); CHLORIDE 117 mmol/L (98-107); GLUCOSE 155 mg/dL (75-110); POTASSIUM 3.4 mmol/L (3.6-5.0); SODIUM 145.8 mmol/L (137-145)
[2018-03-04] MEDS ORDERED: LEVETIRACETAM 500 MG TABLET PO ONE (07:45)
[2018-03-04] MEDS ORDERED: METOPROLOL SUCCINATE 50 MG TAB.SR.24H PO ONE (07:45)
[2018-03-04] MEDS ORDERED: RALTEGRAVIR POTASSIUM 400 MG TABLET PO ONE (07:45)
[2018-03-04] MEDS ORDERED: RITONAVIR 100 MG TABLET PO ONE (07:45)
[2018-03-04] MEDS: VANCOMYCIN HCL 750 MG in DEXTROSE 5%-WATER 250 ML IV SCH ×2 (10:07→18:57)
[2018-03-04 10:57] LABS: HEMATOCRIT 24.1 % (37.9-51.0); MEAN CORPUSCULAR HEMOGLOBIN 31.2 pg (27.0-33.4); MEAN CORPUSCULAR HGB CONC 32.8 g/dL (32.0-36.0); MEAN CORPUSCULAR VOLUME 95 fl (80-97); PLATELET COUNT 238 10^3/uL (150-450); RED BLOOD COUNT 2.53 10^6/uL (4.35-5.55); RED CELL DISTRIBUTION WIDTH 19.5 % (11.5-14.0); WHITE BLOOD COUNT 6.8 10^3/uL (4.0-10.5)
[2018-03-04 11:00] LABS: HEMOGLOBIN 7.9 g/dL (13.5-17.0)
[2018-03-04 11:08] LABS: ANION GAP 16 (5-19); BLOOD UREA NITROGEN 15 mg/dL (7-20); CALCIUM 8.1 mg/dL (8.4-10.2); CARBON DIOXIDE 12 mmol/L (22-30); CHLORIDE 113 mmol/L (98-107); GLUCOSE 311 mg/dL (75-110); SODIUM 140.5 mmol/L (137-145)
[2018-03-04 11:10] LABS: POTASSIUM 3.1 mmol/L (3.6-5.0)
[2018-03-04 11:14] LABS: VANCOMYCIN,TROUGH 10.8 ug/mL (5.0-20.0)
[2018-03-04 11:18] LABS: ABSOLUTE LYMPHOCYTES# (MANUAL) 0.4 10^3/uL (0.5-4.7); ABSOLUTE MONOCYTES # (MANUAL) 0.5 10^3/uL (0.1-1.4); ABSOLUTE NEUTROPHILS# (MANUAL) 5.8 10^3/uL (1.7-8.2); BASOPHILS % (MANUAL) 0 % (0-2); EOSINOPHILS % (MANUAL) 0 % (0-6); LYMPHOCYTES % (MANUAL) 6 % (13-45); MONOCYTES % (MANUAL) 8 % (3-13); SEGMENTED NEUTROPHILS % (MAN) 86 % (42-78); TOTAL CELLS COUNTED 100
[2018-03-04 11:20] LABS: PLATELET COMMENT ADEQUATE; POIKILOCYTOSIS 1+; TARGET CELLS SLIGHT; TEAR DROP CELLS SLIGHT
[2018-03-04 11:21] LABS: ANISOCYTOSIS 2+; TOXIC GRANULATION SLIGHT
--- NOTE | 2018-03-04 12:45 | RADIOLOGY REPORT (SQ) ---
EXAM DESCRIPTION: LUMBAR PUNCTURE COMPLETED DATE/TIME: 03/04/2018 12:34 pm REASON FOR STUDY: AMS, SEPSIS COMPARISON: None. FLUOROSCOPY TIME: 12 seconds 2 images saved to PACS. TECHNIQUE: Fluoroscopic guided lumbar puncture with opening and closing pressures. LIMITATIONS: None. PROCEDURE: After written consent and assessment were obtained, the patient was brought into the fluo roscopy room and placed prone on the table. The patient's lower back was prepped in a sterile fashio n and an entry site was selected under live fluoroscopic guidance. The entry site was anesthetized wi th 1% lidocaine. A 20 gauge needle was advanced through the skin and into the thecal sac at the level of L3-L4. An opening pressure of 9 water units was obtained. After approximately 5ml of CSF was kalpesh ined, a closing pressure of 9 water units was obtained. The needle was removed and a sterile bandage was placed of the site. Specimens were sent to the lab for testing. A fluoroscopic spot image was rob ed to PACS confirming level access. FINDINGS: Clear fluid IMPRESSION: Lumbar puncture under fluoroscopy. No immediate complication. COMMENT: Patient medication list reviewed:Yes- Quality ID# [id number]:Eligible professional attests to docu menting in the medical record they obtained, updated, or reviewed the patient's current medications.. Quality ID 145: Final reports for procedures using fluoroscopy that document radiation exposure ines russell, or exposure time and number of fluorographic images (if radiation exposure indices are not avail able) TECHNICAL DOCUMENTATION: JOB ID: [id number] [employer]- All Rights Reserved Reading location - IP/workstation name: [email or web address]
[2018-03-04 13:34] LABS: GLUCOSE,CSF 123 mg/dL (40-70); PROTEIN,CSF 60 mg/dL (12-60)
[2018-03-04 13:37] LABS: APPEARANCE ALL TUBES CLEAR; COLOR TUBE 1 PINK; COLOR TUBE 2 COLORLESS; COLOR TUBE 3 COLORLESS; COLOR TUBE 4 COLORLESS; CSF TOTAL VOLUME 4.5 CC; CSF TUBE NUMBER 3; VOLUME TUBE 4 1.5 CC
[2018-03-04 13:38] LABS: RED BLOOD CELL,CSF 233 /uL (0-10)
[2018-03-04 13:40] LABS: WHITE BLOOD CELL,CSF 17 /uL (0-5)
[2018-03-04] MEDS: POTASSI CL 20 MEQ/50 ML RIDER 20 MEQ/50 ML RTUPB IV SCH ×2 (14:00→17:23)
[2018-03-04] MEDS: INSULIN LISPRO 100 UNIT/ML 3 ML VIAL SUBCUT PRN (14:00)
--- NOTE | 2018-03-04 14:26 | RADIOLOGY REPORT (SQ) ---
EXAM DESCRIPTION: FLUORO/NEEDLE PLACEMENT COMPLETE DATE/TIME: 03/04/2018 12:34 pm REASON FOR STUDY: AMS, SEPSIS FINDINGS: Please see combined report for performance of procedure and radiologic supervision and int erpretation. IMPRESSION: Please see combined report for performance of procedure and radiologic supervision and i nterpretation. Reading location - IP/workstation name: [email or web address]
--- NOTE | 2018-03-04 15:19 | PDOC PROGRESS REPORT ---
Subjective Progress Note for:: 03/04/18 Subjective:: I saw the patient's sister today for the first time, she is the POA, I had a long discussion with her about patient's condition and prognosis. He underwent lumbar puncture today this was successful. He wants to smoke cigarettes he was advised he cannot smoke cigarettes because this is a tobacco free facility antibiotic The CSF was pink suggesting that it was hemorrhagic probably traumatic not sure how reliable the WBC count is in the CSF is in light of the traumatic lumbar puncture unlikely he has meningitis ,we continue to wean off antibiotic Reason For Visit: MENINGITIS,HIV Physical Exam Vital Signs: Temp Pulse Resp BP Pulse Ox 97.7 F 82 16 114/84 100 03/04/18 12:50 03/04/18 14:00 03/04/18 12:50 03/04/18 12:50 03/04/18 12:50 Intake & Output 03/03/18 03/04/18 03/05/18 06:59 06:59 06:59 Intake Total 100 2505 670 Output Total 2300 1550 1650 Balance -2200 955 -980 Weight 50.3 kg 51.6 kg General appearance: PRESENT: no acute distress Eye exam: PRESENT: PERRLA Respiratory exam: PRESENT: chest wall tenderness Cardiovascular exam: PRESENT: +S1, +S2 GI/Abdominal exam: PRESENT: soft Neurological exam: PRESENT: alert Results Laboratory Results: 03/04/18 09:45 03/04/18 09:45 03/04/18 03/04/18 03/04/18 04:15 04:15 09:45 WBC 6.8 6.8 RBC 2.55 L 2.53 L Hgb 8.0 L 7.9 L Hct 24.0 L 24.1 L MCV 94 95 MCH 31.4 31.2 MCHC 33.3 32.8 RDW 19.3 H 19.5 H Plt Count 239 238 Seg Neutrophils % 86.7 H Not Reportable Lymphocytes % 6.7 L Not Reportable Monocytes % 6.5 Not Reportable Eosinophils % 0.0 Not Reportable Basophils % 0.1 Not Reportable Absolute Neutrophils 5.9 Not Reportable Absolute Lymphocytes 0.5 Not Reportable Absolute Monocytes 0.4 Not Reportable Absolute Eosinophils 0.0 Not Reportable Absolute Basophils 0.0 Not Reportable Sodium 145.8 H Potassium 3.4 L Chloride 117 H Carbon Dioxide 14 L Anion Gap 15 BUN 14 Creatinine 0.53 Est GFR ( Amer) > 60 Est GFR (Non-Af Amer) > 60 Glucose 155 H Calcium 8.2 L CSF Glucose CSF Total Protein 03/04/18 03/04/18 03/04/18 09:45 09:45 12:23 WBC RBC Hgb Hct MCV MCH MCHC RDW Plt Count Seg Neutrophils % Lymphocytes % Monocytes % Eosinophils % Basophils % Absolute Neutrophils Absolute Lymphocytes Absolute Monocytes Absolute Eosinophils Absolute Basophils Sodium 140.5 Potassium 3.1 L Chloride 113 H Carbon Dioxide 12 L Anion Gap 16 BUN 15 Creatinine 0.53 Cancelled Est GFR ( Amer) > 60 Cancelled Est GFR (Non-Af Amer) > 60 Cancelled Glucose 311 H Calcium 8.1 L CSF Glucose 123 H CSF Total Protein 60 Impressions: Chest X-Ray 03/02/18 19:43 IMPRESSION: NO ACUTE RADIOGRAPHIC FINDING IN THE CHEST. NO SIGNIFICANT CHANGE FROM PRIOR STUDY. Chest/Abdomen CTA 03/02/18 20:35 IMPRESSION: UNREMARKABLE CTA CHEST WITHOUT PULMONARY EMBOLI. INTERVAL IMPROVEMENT OF PREVIOUSLY IDENTIFIED MULTIFOCAL AIRSPACE DISEASE WITH NEW TREE-IN-BUD IN NODULAR OPACITIES IN THE RIGHT UPPER AND RIGHT LOWER LOBES SUSPICIOUS FOR RECURRENT PNEUMONITIS/PNEUMONIA. Lumbar Puncture 03/04/18 11:26 IMPRESSION: Lumbar puncture under fluoroscopy. No immediate complication. Guidance Fluoroscopy 03/04/18 11:33 IMPRESSION: Please see combined report for performance of procedure and radiologic supervision and interpretation. Assessment & Plan - Diagnosis (1) Meningitis Is this a current diagnosis for this admission?: Yes (2) HIV (human immunodeficiency virus infection) Is this a current diagnosis for this admission?: Yes (3) Head and neck cancer Is this a current diagnosis for this admission?: Yes (4) Meningitis Is this a current diagnosis for this admission?: Yes
[2018-03-04] MEDS ORDERED: POTASSIUM CHLORIDE 20 MEQ/15 ML UDCUP PO ONE (19:30)
[2018-03-04] MEDS: CEFTRIAXONE 2 GM/D5W RTU 2 GM/50 ML RTUPB IV SCH (22:25)
[2018-03-04] MEDS: LEVETIRACETAM 500 MG TABLET PO SCH (22:25)
[2018-03-04] MEDS: RALTEGRAVIR POTASSIUM 400 MG TABLET PO SCH (22:30)
[2018-03-05] MEDS: DEXAMETHASONE SOD PHOS INJ 10 MG/1 ML VIAL IV SCH ×4 (00:41→17:26)
[2018-03-05] MEDS: AMPICILLIN SODIUM 1 GM in NORMAL SALINE 50 ML IV SCH ×4 (00:41→17:26)
[2018-03-05] MEDS: VANCOMYCIN HCL 750 MG in DEXTROSE 5%-WATER 250 ML IV SCH ×3 (03:20→17:26)
[2018-03-05] MEDS: HEPARIN SOD (PORCINE) 5,000 UNIT/ML 1 ML SYRINGE SUBCUT SCH ×3 (06:46→21:33)
[2018-03-05 08:01] LABS: HEMATOCRIT 24.7 % (37.9-51.0); HEMOGLOBIN 8.2 g/dL (13.5-17.0); MEAN CORPUSCULAR HEMOGLOBIN 31.1 pg (27.0-33.4); MEAN CORPUSCULAR HGB CONC 33.1 g/dL (32.0-36.0); MEAN CORPUSCULAR VOLUME 94 fl (80-97); PLATELET COUNT 225 10^3/uL (150-450); RED BLOOD COUNT 2.63 10^6/uL (4.35-5.55); RED CELL DISTRIBUTION WIDTH 19.3 % (11.5-14.0); WHITE BLOOD COUNT 3.7 10^3/uL (4.0-10.5)
[2018-03-05 08:23] LABS: ANION GAP 12 (5-19); BLOOD UREA NITROGEN 17 mg/dL (7-20); CALCIUM 8.3 mg/dL (8.4-10.2); CARBON DIOXIDE 14 mmol/L (22-30); CHLORIDE 114 mmol/L (98-107); GLUCOSE 189 mg/dL (75-110); SODIUM 139.8 mmol/L (137-145)
[2018-03-05 08:29] LABS: ABSOLUTE LYMPHOCYTES# (MANUAL) 0.6 10^3/uL (0.5-4.7); ABSOLUTE MONOCYTES # (MANUAL) 0.2 10^3/uL (0.1-1.4); ABSOLUTE NEUTROPHILS# (MANUAL) 2.9 10^3/uL (1.7-8.2); ANISOCYTOSIS 2+; BASOPHILS % (MANUAL) 0 % (0-2); EOSINOPHILS % (MANUAL) 0 % (0-6); HYPOCHROMASIA SLIGHT; LYMPHOCYTES % (MANUAL) 16 % (13-45); MONOCYTES % (MANUAL) 6 % (3-13); NUCLEATED RED BLOOD CELLS 2 /100 WBC (0); PLATELET COMMENT ADEQUATE; POLYCHROMASIA 2+; SEGMENTED NEUTROPHILS % (MAN) 78 % (42-78); TARGET CELLS SLIGHT; TOTAL CELLS COUNTED 100
[2018-03-05 08:30] LABS: TOXIC GRANULATION SLIGHT
[2018-03-05] MEDS ORDERED: POTASSIUM CHLORIDE 10 MEQ TABLET.SA PO ONE (09:45)
[2018-03-05] MEDS: METOPROLOL SUCCINATE 50 MG TAB.SR.24H PO SCH (09:48)
[2018-03-05] MEDS: LEVETIRACETAM 500 MG TABLET PO SCH ×2 (09:49→21:33)
[2018-03-05] MEDS: RALTEGRAVIR POTASSIUM 400 MG TABLET PO SCH ×2 (09:56→21:34)
[2018-03-05] MEDS: RITONAVIR 100 MG TABLET PO SCH (09:56)
[2018-03-05 11:14] LABS: VANCOMYCIN,TROUGH 19.8 ug/mL (5.0-20.0)
[2018-03-05] MEDS: POTASSIUM CHLORIDE 10 MEQ TABLET.SA PO SCH ×3 (11:25→17:24)
[2018-03-05] MEDS: INSULIN LISPRO 100 UNIT/ML 3 ML VIAL SUBCUT PRN ×2 (11:49→17:26)
[2018-03-05] MEDS: NICOTINE 21 MG/24 HR PATCH.TD24 TD SCH (17:26)
--- NOTE | 2018-03-05 21:20 | PDOC PROGRESS REPORT ---
Subjective Progress Note for:: 03/05/18 Reason For Visit: MENINGITIS,HIV Physical Exam Vital Signs: Temp Pulse Resp BP Pulse Ox 97.5 F 117 H 18 141/92 H 100 03/05/18 20:01 03/05/18 20:01 03/05/18 20:01 03/05/18 20:01 03/05/18 20:01 Intake & Output 03/04/18 03/05/18 03/06/18 06:59 06:59 06:59 Intake Total 2505 4070 3305 Output Total 1550 4450 1100 Balance 955 -380 2205 Weight 51.6 kg 51.5 kg General appearance: PRESENT: no acute distress Eye exam: PRESENT: PERRLA Respiratory exam: PRESENT: clear to auscultation melba Cardiovascular exam: PRESENT: +S1, +S2 GI/Abdominal exam: PRESENT: soft Neurological exam: PRESENT: alert Results Laboratory Results: 03/05/18 07:30 03/05/18 07:30 03/05/18 03/05/18 07:30 07:30 WBC 3.7 L RBC 2.63 L Hgb 8.2 L Hct 24.7 L MCV 94 MCH 31.1 MCHC 33.1 RDW 19.3 H Plt Count 225 Seg Neutrophils % Not Reportable Lymphocytes % Not Reportable Monocytes % Not Reportable Eosinophils % Not Reportable Basophils % Not Reportable Absolute Neutrophils Not Reportable Absolute Lymphocytes Not Reportable Absolute Monocytes Not Reportable Absolute Eosinophils Not Reportable Absolute Basophils Not Reportable Sodium 139.8 Potassium 3.0 L* Chloride 114 H Carbon Dioxide 14 L Anion Gap 12 BUN 17 Creatinine 0.54 Est GFR ( Amer) > 60 Est GFR (Non-Af Amer) > 60 Glucose 189 H Calcium 8.3 L Impressions: Chest X-Ray 03/02/18 19:43 IMPRESSION: NO ACUTE RADIOGRAPHIC FINDING IN THE CHEST. NO SIGNIFICANT CHANGE FROM PRIOR STUDY. Chest/Abdomen CTA 03/02/18 20:35 IMPRESSION: UNREMARKABLE CTA CHEST WITHOUT PULMONARY EMBOLI. INTERVAL IMPROVEMENT OF PREVIOUSLY IDENTIFIED MULTIFOCAL AIRSPACE DISEASE WITH NEW TREE-IN-BUD IN NODULAR OPACITIES IN THE RIGHT UPPER AND RIGHT LOWER LOBES SUSPICIOUS FOR RECURRENT PNEUMONITIS/PNEUMONIA. Lumbar Puncture 03/04/18 11:26 IMPRESSION: Lumbar puncture under fluoroscopy. No immediate complication. Guidance Fluoroscopy 03/04/18 11:33 IMPRESSION: Please see combined report for performance of procedure and radiologic supervision and interpretation. Assessment & Plan - Diagnosis (1) Meningitis Is this a current diagnosis for this admission?: Yes (2) HIV (human immunodeficiency virus infection) Is this a current diagnosis for this admission?: Yes (3) Head and neck cancer Is this a current diagnosis for this admission?: Yes (4) Meningitis Is this a current diagnosis for this admission?: Yes
[2018-03-05] MEDS: CEFTRIAXONE 2 GM/D5W RTU 2 GM/50 ML RTUPB IV SCH (21:33)
[2018-03-06] MEDS: DEXAMETHASONE SOD PHOS INJ 10 MG/1 ML VIAL IV SCH ×4 (00:30→17:10)
[2018-03-06] MEDS: HEPARIN SOD (PORCINE) 5,000 UNIT/ML 1 ML SYRINGE SUBCUT SCH ×3 (05:16→21:48)
[2018-03-06] MEDS: NORMAL SALINE 1000 ML 1,000 ML IV PRN ×2 (05:16→21:49)
[2018-03-06 05:40] LABS: ANION GAP 13 (5-19); BLOOD UREA NITROGEN 18 mg/dL (7-20); CALCIUM 9.2 mg/dL (8.4-10.2); CARBON DIOXIDE 16 mmol/L (22-30); CHLORIDE 112 mmol/L (98-107); GLUCOSE 210 mg/dL (75-110); POTASSIUM 3.5 mmol/L (3.6-5.0); SODIUM 141.2 mmol/L (137-145)
[2018-03-06] MEDS: RITONAVIR 100 MG TABLET PO SCH (08:38)
[2018-03-06] MEDS: METOPROLOL SUCCINATE 50 MG TAB.SR.24H PO SCH (08:39)
[2018-03-06] MEDS: RALTEGRAVIR POTASSIUM 400 MG TABLET PO SCH ×2 (08:39→21:48)
[2018-03-06] MEDS: LEVETIRACETAM 500 MG TABLET PO SCH ×2 (08:39→21:49)
--- NOTE | 2018-03-06 09:20 | EKG REPORT ---
SEVERITY:- ABNORMAL ECG - ATRIAL FIBRILLATION, V-RATE 109-190 REPOLARIZATION ABNORMALITY, PROB RATE RELATED : Confirmed by: Quoc Perea 06-Mar-2018 09:19:36
[2018-03-06 11:30] LABS: HEMATOCRIT 28.9 % (37.9-51.0); HEMOGLOBIN 9.5 g/dL (13.5-17.0); MEAN CORPUSCULAR HEMOGLOBIN 30.7 pg (27.0-33.4); MEAN CORPUSCULAR HGB CONC 32.8 g/dL (32.0-36.0); MEAN CORPUSCULAR VOLUME 94 fl (80-97); PLATELET COUNT 269 10^3/uL (150-450); RED BLOOD COUNT 3.08 10^6/uL (4.35-5.55); RED CELL DISTRIBUTION WIDTH 19.2 % (11.5-14.0); WHITE BLOOD COUNT 3.8 10^3/uL (4.0-10.5)
[2018-03-06 11:53] LABS: ABSOLUTE LYMPHOCYTES# (MANUAL) 0.2 10^3/uL (0.5-4.7); ABSOLUTE MONOCYTES # (MANUAL) 0.5 10^3/uL (0.1-1.4); ABSOLUTE NEUTROPHILS# (MANUAL) 3.1 10^3/uL (1.7-8.2); ANISOCYTOSIS 1+; BASOPHILS % (MANUAL) 0 % (0-2); EOSINOPHILS % (MANUAL) 0 % (0-6); LYMPHOCYTES % (MANUAL) 6 % (13-45); MONOCYTES % (MANUAL) 12 % (3-13); NUCLEATED RED BLOOD CELLS 2 /100 WBC (0); PLATELET COMMENT ADEQUATE; SEGMENTED NEUTROPHILS % (MAN) 82 % (42-78); TOTAL CELLS COUNTED 100; TOXIC GRANULATION 1+
[2018-03-06] MEDS ORDERED: POTASSIUM CHLORIDE 10 MEQ TABLET.SA PO ONE (14:00)
[2018-03-06] MEDS: INSULIN LISPRO 100 UNIT/ML 3 ML VIAL SUBCUT PRN ×2 (14:09→17:10)
[2018-03-06] MEDS: NICOTINE 21 MG/24 HR PATCH.TD24 TD SCH (17:10)
[2018-03-06] MEDS ORDERED: DILTIAZEM HCL/D5W 125 MG/125 ML RTUINJ IV PRN (20:40)
--- NOTE | 2018-03-06 20:44 | PDOC PROGRESS REPORT ---
Subjective Progress Note for:: 03/06/18 Subjective:: Patient developed paroxysmal atrial fibrillation with rapid ventricular response , Reason For Visit: MENINGITIS,HIV Physical Exam Vital Signs: Temp Pulse Resp BP Pulse Ox 97.9 F 137 H 14 135/84 H 79 L 03/06/18 15:18 03/06/18 19:00 03/06/18 15:18 03/06/18 15:18 03/06/18 15:18 Intake & Output 03/05/18 03/06/18 03/07/18 06:59 06:59 06:59 Intake Total 4070 5695 2662 Output Total 4450 4100 2600 Balance -380 1595 62 Weight 51.5 kg 51.4 kg General appearance: PRESENT: mild distress Eye exam: PRESENT: PERRLA Respiratory exam: PRESENT: clear to auscultation melba Cardiovascular exam: PRESENT: +S1, +S2 Neurological exam: PRESENT: alert Results Laboratory Results: 03/06/18 11:03 03/06/18 04:39 03/04/18 03/06/18 03/06/18 12:23 04:39 04:39 WBC Cancelled RBC Cancelled Hgb Cancelled Hct Cancelled MCV Cancelled MCH Cancelled MCHC Cancelled RDW Cancelled Plt Count Cancelled Seg Neutrophils % Cancelled Lymphocytes % Cancelled Monocytes % Cancelled Eosinophils % Cancelled Basophils % Cancelled Absolute Neutrophils Cancelled Absolute Lymphocytes Cancelled Absolute Monocytes Cancelled Absolute Eosinophils Cancelled Absolute Basophils Cancelled Sodium 141.2 Potassium 3.5 L Chloride 112 H Carbon Dioxide 16 L Anion Gap 13 BUN 18 Creatinine 0.53 Est GFR ( Amer) > 60 Est GFR (Non-Af Amer) > 60 Glucose 210 H Calcium 9.2 Fluid LDH 60 03/06/18 11:03 WBC 3.8 L RBC 3.08 L Hgb 9.5 L Hct 28.9 L MCV 94 MCH 30.7 MCHC 32.8 RDW 19.2 H Plt Count 269 Seg Neutrophils % Not Reportable Lymphocytes % Not Reportable Monocytes % Not Reportable Eosinophils % Not Reportable Basophils % Not Reportable Absolute Neutrophils Not Reportable Absolute Lymphocytes Not Reportable Absolute Monocytes Not Reportable Absolute Eosinophils Not Reportable Absolute Basophils Not Reportable Sodium Potassium Chloride Carbon Dioxide Anion Gap BUN Creatinine Est GFR ( Amer) Est GFR (Non-Af Amer) Glucose Calcium Fluid LDH Impressions: Chest X-Ray 03/02/18 19:43 IMPRESSION: NO ACUTE RADIOGRAPHIC FINDING IN THE CHEST. NO SIGNIFICANT CHANGE FROM PRIOR STUDY. Chest/Abdomen CTA 03/02/18 20:35 IMPRESSION: UNREMARKABLE CTA CHEST WITHOUT PULMONARY EMBOLI. INTERVAL IMPROVEMENT OF PREVIOUSLY IDENTIFIED MULTIFOCAL AIRSPACE DISEASE WITH NEW TREE-IN-BUD IN NODULAR OPACITIES IN THE RIGHT UPPER AND RIGHT LOWER LOBES SUSPICIOUS FOR RECURRENT PNEUMONITIS/PNEUMONIA. Lumbar Puncture 03/04/18 11:26 IMPRESSION: Lumbar puncture under fluoroscopy. No immediate complication. Guidance Fluoroscopy 03/04/18 11:33 IMPRESSION: Please see combined report for performance of procedure and radiologic supervision and interpretation. Assessment & Plan - Diagnosis (1) Meningitis Is this a current diagnosis for this admission?: Yes (2) HIV (human immunodeficiency virus infection) Is this a current diagnosis for this admission?: Yes (3) Head and neck cancer Is this a current diagnosis for this admission?: Yes (4) Atrial fibrillation Qualifiers: Atrial fibrillation type: paroxysmal Qualified Code(s): I48.0 - Paroxysmal atrial fibrillation Is this a current diagnosis for this admission?: Yes Plan: Start Silva lewis
--- NOTE | 2018-03-06 20:59 | EKG REPORT ---
SEVERITY:- ABNORMAL ECG - ATRIAL FIBRILLATION, CANNOT R/O SINUS WITH FREQUENT APCs, REC REPEAT EKG LEFT VENTRICULAR HYPERTROPHY BORDERLINE PROLONGED QT INTERVAL : Confirmed by: Quoc Perea 06-Mar-2018 20:59:21
[2018-03-06] MEDS: CEFTRIAXONE 2 GM/D5W RTU 2 GM/50 ML RTUPB IV SCH (21:43)
[2018-03-07] MEDS: HEPARIN SOD (PORCINE) 5,000 UNIT/ML 1 ML SYRINGE SUBCUT SCH ×3 (06:53→21:28)
[2018-03-07] MEDS: METOPROLOL SUCCINATE 50 MG TAB.SR.24H PO SCH ×2 (09:43→18:01)
[2018-03-07] MEDS: LEVETIRACETAM 500 MG TABLET PO SCH ×2 (09:43→21:28)
[2018-03-07] MEDS: RITONAVIR 100 MG TABLET PO SCH (09:44)
[2018-03-07] MEDS: RALTEGRAVIR POTASSIUM 400 MG TABLET PO SCH ×2 (09:44→21:25)
[2018-03-07] MEDS: INSULIN LISPRO 100 UNIT/ML 3 ML VIAL SUBCUT PRN ×2 (11:38→22:53)
[2018-03-07] MEDS: ACETAMINOPHEN 325 MG TABLET PEG PRN (13:38)
[2018-03-07] MEDS: NICOTINE 21 MG/24 HR PATCH.TD24 TD SCH (18:04)
--- NOTE | 2018-03-07 20:36 | PDOC PROGRESS REPORT ---
Subjective Progress Note for:: 03/07/18 Subjective:: He had episode of paroxysmal atrial fibrillation with rapid ventricular response last night, he required Cardizem infusion, presently rate controlled, Cardizem is discontinued. The dosage of Toprol is adjusted from 150 mg p.o. daily to 100 mg p.o. every 12 hours. 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 Reason For Visit: MENINGITIS,HIV Physical Exam Vital Signs: Temp Pulse Resp BP Pulse Ox 97.4 F 104 H 18 115/84 96 03/07/18 19:39 03/07/18 19:40 03/07/18 19:39 03/07/18 19:39 03/07/18 19:40 Intake & Output 03/06/18 03/07/18 03/08/18 06:59 06:59 06:59 Intake Total 5695 4102 953 Output Total 4100 4200 1750 Balance 1595 -98 -797 Weight 51.4 kg 52.2 kg General appearance: PRESENT: no acute distress Eye exam: PRESENT: PERRLA Respiratory exam: PRESENT: clear to auscultation melba Cardiovascular exam: PRESENT: +S1, +S2 GI/Abdominal exam: PRESENT: soft Neurological exam: PRESENT: alert Results Laboratory Results: 03/06/18 11:03 03/06/18 04:39 03/04/18 12:23 Cerebral Spinal Fluid - Csf AFB Smear Concentration - Final 03/04/18 12:23 Cerebral Spinal Fluid - Csf Acid Fast Bacilli Smear - Final 03/04/18 11:40 Cerebral Spinal Fluid - Csf Gram Stain - Final 03/04/18 11:40 Cerebral Spinal Fluid - Csf CSF Culture - Final NO GROWTH 3 DAYS Impressions: Chest X-Ray 03/02/18 19:43 IMPRESSION: NO ACUTE RADIOGRAPHIC FINDING IN THE CHEST. NO SIGNIFICANT CHANGE FROM PRIOR STUDY. Chest/Abdomen CTA 03/02/18 20:35 IMPRESSION: UNREMARKABLE CTA CHEST WITHOUT PULMONARY EMBOLI. INTERVAL IMPROVEMENT OF PREVIOUSLY IDENTIFIED MULTIFOCAL AIRSPACE DISEASE WITH NEW TREE-IN-BUD IN NODULAR OPACITIES IN THE RIGHT UPPER AND RIGHT LOWER LOBES SUSPICIOUS FOR RECURRENT PNEUMONITIS/PNEUMONIA. Lumbar Puncture 03/04/18 11:26 IMPRESSION: Lumbar puncture under fluoroscopy. No immediate complication. Guidance Fluoroscopy 03/04/18 11:33 IMPRESSION: Please see combined report for performance of procedure and radiologic supervision and interpretation. Assessment & Plan - Diagnosis (1) HIV (human immunodeficiency virus infection) Is this a current diagnosis for this admission?: Yes (2) Head and neck cancer Is this a current diagnosis for this admission?: Yes (3) Atrial fibrillation Qualifiers: Atrial fibrillation type: paroxysmal Qualified Code(s): I48.0 - Paroxysmal atrial fibrillation Is this a current diagnosis for this admission?: Yes (4) Sepsis Qualifiers: Sepsis type: sepsis due to unspecified organism Qualified Code(s): A41.9 - Sepsis, unspecified organism Is this a current diagnosis for this admission?: Yes Plan: He had sepsis-like syndrome the potential source of the sepsis is the urine, he does not have meningitis the CSF culture so far negative the antibiotic be discontinued
[2018-03-07] MEDS: VALSARTAN 160 MG TABLET PO SCH (21:27)
[2018-03-07] MEDS: NORMAL SALINE 1000 ML 1,000 ML IV PRN (21:28)
[2018-03-08] MEDS: HEPARIN SOD (PORCINE) 5,000 UNIT/ML 1 ML SYRINGE SUBCUT SCH ×3 (08:59→21:33)
[2018-03-08] MEDS: METOPROLOL SUCCINATE 50 MG TAB.SR.24H PO SCH ×2 (09:00→18:03)
[2018-03-08] MEDS: RALTEGRAVIR POTASSIUM 400 MG TABLET PO SCH ×2 (09:01→21:33)
[2018-03-08] MEDS: RITONAVIR 100 MG TABLET PO SCH (09:01)
[2018-03-08] MEDS: LEVETIRACETAM 500 MG TABLET PO SCH ×2 (09:01→21:34)
[2018-03-08] MEDS: ACETAMINOPHEN 325 MG TABLET PEG PRN (10:03)
[2018-03-08] MEDS: INSULIN LISPRO 100 UNIT/ML 3 ML VIAL SUBCUT PRN ×2 (12:24→18:08)
[2018-03-08] MEDS: NORMAL SALINE 1000 ML 1,000 ML IV PRN ×2 (14:48→23:28)
[2018-03-08] MEDS: NICOTINE 21 MG/24 HR PATCH.TD24 TD SCH (18:03)
[2018-03-08] MEDS ORDERED: METHOCARBAMOL 500 MG TABLET PO PRN (18:50)
[2018-03-08] MEDS ORDERED: ETRAVIRINE PO ONE (20:30)
[2018-03-08] MEDS ORDERED: DARUNAVIR 600 MG PO ONE (20:30)
[2018-03-08] MEDS ORDERED: ETRAVIRINE 200 MG PO ONE (21:30)
[2018-03-08] MEDS: VALSARTAN 160 MG TABLET PO SCH (21:34)
--- NOTE | 2018-03-08 22:05 | PDOC PROGRESS REPORT ---
Subjective Progress Note for:: 03/08/18 Subjective:: Patient was seen by the bedside, he complained of bone pains, he has a history of head and neck cancer, a bone scan will be ordered Reason For Visit: MENINGITIS,HIV Physical Exam Vital Signs: Temp Pulse Resp BP Pulse Ox 97.5 F 104 H 20 111/80 100 03/08/18 19:41 03/08/18 19:41 03/08/18 19:41 03/08/18 19:41 03/08/18 19:41 Intake & Output 03/07/18 03/08/18 03/09/18 06:59 06:59 06:59 Intake Total 4102 2843 1989 Output Total 4200 3150 2500 Balance -98 -307 -510 Weight 52.2 kg 50.6 kg General appearance: PRESENT: no acute distress Eye exam: PRESENT: PERRLA Respiratory exam: PRESENT: clear to auscultation melba Cardiovascular exam: PRESENT: +S1, +S2 GI/Abdominal exam: PRESENT: soft Neurological exam: PRESENT: alert Results Laboratory Results: 03/06/18 11:03 03/06/18 04:39 Impressions: Chest X-Ray 03/02/18 19:43 IMPRESSION: NO ACUTE RADIOGRAPHIC FINDING IN THE CHEST. NO SIGNIFICANT CHANGE FROM PRIOR STUDY. Chest/Abdomen CTA 03/02/18 20:35 IMPRESSION: UNREMARKABLE CTA CHEST WITHOUT PULMONARY EMBOLI. INTERVAL IMPROVEMENT OF PREVIOUSLY IDENTIFIED MULTIFOCAL AIRSPACE DISEASE WITH NEW TREE-IN-BUD IN NODULAR OPACITIES IN THE RIGHT UPPER AND RIGHT LOWER LOBES SUSPICIOUS FOR RECURRENT PNEUMONITIS/PNEUMONIA. Lumbar Puncture 03/04/18 11:26 IMPRESSION: Lumbar puncture under fluoroscopy. No immediate complication. Guidance Fluoroscopy 03/04/18 11:33 IMPRESSION: Please see combined report for performance of procedure and radiologic supervision and interpretation. Assessment & Plan - Diagnosis (1) HIV (human immunodeficiency virus infection) Is this a current diagnosis for this admission?: Yes (2) Head and neck cancer Is this a current diagnosis for this admission?: Yes Plan: Order a bone scan (3) Atrial fibrillation Qualifiers: Atrial fibrillation type: paroxysmal Qualified Code(s): I48.0 - Paroxysmal atrial fibrillation Is this a current diagnosis for this admission?: Yes (4) Sepsis Qualifiers: Sepsis type: sepsis due to unspecified organism Qualified Code(s): A41.9 - Sepsis, unspecified organism Is this a current diagnosis for this admission?: Yes
[2018-03-08 22:59] LABS: HEMATOCRIT 28.6 % (37.9-51.0); HEMOGLOBIN 9.7 g/dL (13.5-17.0); MEAN CORPUSCULAR HEMOGLOBIN 31.1 pg (27.0-33.4); MEAN CORPUSCULAR HGB CONC 33.9 g/dL (32.0-36.0); MEAN CORPUSCULAR VOLUME 92 fl (80-97); PLATELET COUNT 224 10^3/uL (150-450); RED BLOOD COUNT 3.12 10^6/uL (4.35-5.55); RED CELL DISTRIBUTION WIDTH 18.4 % (11.5-14.0)
[2018-03-08 23:01] LABS: WHITE BLOOD COUNT 8.8 10^3/uL (4.0-10.5)
[2018-03-08 23:06] LABS: ALANINE AMINOTRANSFERASE 81 U/L (21-72); ALBUMIN 2.9 g/dL (3.5-5.0); ALKALINE PHOSPHATASE 194 U/L (38-126); ANION GAP 11 (5-19); ASPARTATE AMINO TRANSFERASE 40 U/L (17-59); BILIRUBIN,DIRECT 0.5 mg/dL (0.0-0.4); BILIRUBIN,TOTAL 0.5 mg/dL (0.2-1.3); BLOOD UREA NITROGEN 19 mg/dL (7-20); CALCIUM 8.3 mg/dL (8.4-10.2); CARBON DIOXIDE 18 mmol/L (22-30); CHLORIDE 104 mmol/L (98-107); GLUCOSE 157 mg/dL (75-110); SODIUM 133.2 mmol/L (137-145); TOTAL PROTEIN 6.1 g/dL (6.3-8.2)
[2018-03-08 23:08] LABS: POTASSIUM 2.5 mmol/L (3.6-5.0)
[2018-03-08 23:11] LABS: ABSOLUTE LYMPHOCYTES# (MANUAL) 0.5 10^3/uL (0.5-4.7); ABSOLUTE MONOCYTES # (MANUAL) 0.3 10^3/uL (0.1-1.4); ABSOLUTE NEUTROPHILS# (MANUAL) 7.9 10^3/uL (1.7-8.2); BASOPHILS % (MANUAL) 0 % (0-2); EOSINOPHILS % (MANUAL) 1 % (0-6); LYMPHOCYTES % (MANUAL) 6 % (13-45); MONOCYTES % (MANUAL) 3 % (3-13); NUCLEATED RED BLOOD CELLS 4 /100 WBC (0); SEGMENTED NEUTROPHILS % (MAN) 90 % (42-78); TOTAL CELLS COUNTED 100
[2018-03-08 23:13] LABS: ANISOCYTOSIS 1+; PLATELET COMMENT ADEQUATE; POIKILOCYTOSIS SLIGHT; TARGET CELLS SLIGHT; TOXIC VACUOLATION PRESENT
[2018-03-08] MEDS: POTASSIUM CHLORIDE 10 MEQ TABLET.SA PO SCH (23:23)
[2018-03-08] MEDS ORDERED: POTASSIUM CHLORIDE 10 MEQ TABLET.SA PO ONE (23:23)
--- NOTE | 2018-03-08 23:25 | Palliative Consultation Report ---
Consultation From:: [facility] - [facility] HPI: Palliative care consult visit 3: 40PM Appreciate palliative consult for this 57 year old patient who is admitted from [facility]( stayed 2 days from last hospital admission for sepsis) with altered mental status. He also suffers with Hep C, HIV and Atrial fib. He has history of head and neck cancer. He has PEG tube but in spite of tube feedings he continues to lose weight. Mr. Santos is alert and oriented today but is suffering with headache and neck pain. He says he cannot get comfortable . He is not getting anything more than tylenol for pain, which has been effective until today. His headache and neck pain has increased and he is very uncomfortable. He is aware of surroundings, able to move about in the bed, He is hoping to go back to [place] after hospitalization. On exam, Mr. Santos neck muscles are tight and he says he feels a knot in the back of his head. WIth massage to the neck, he did feel some relief. Patients sister helps with his healthcare and his decisions. Onset/Duration: Sudden Quality of Pain: Achy, Throbbing Severity: Moderate Associated Symptoms: Weakness Exacerbated by: Movement Past Medical History(Consults) - General Information Source: Patient, [facility] Records Home Medications: Acetaminophen [Tylenol 325 mg Tablet] 650 mg PEG Q6HP PRN 03/03/18 Amlodipine Besylate [Norvasc 10 mg Tablet] 10 mg PO DAILY 03/03/18 Atorvastatin Calcium [Lipitor 10 mg Tablet] 10 mg PO QHS 03/03/18 Insulin Lispro [Humalog Insulin (Lispro) 100 unit/mL] 0 units SQ .PERSLIDINGSCALE 03/03/18 Levetiracetam [Keppra 500 mg Tablet] 500 mg PO Q12 03/03/18 Linagliptin [Tradjenta] 5 mg PO DAILY 03/03/18 Metoprolol Succinate [Toprol XL 100 mg Tablet] 150 mg PO DAILY 03/03/18 Nystatin/Dexameth/Diphen [Magic Mouthwash] 5 ml PO Q4HP PRN 03/03/18 Ondansetron HCl [Zofran 8 mg Tablet] 8 mg PO Q8HP PRN 03/03/18 Paroxetine HCl [Paxil 20 mg Tablet] 20 mg PO DAILY 03/03/18 Raltegravir Potassium [Isentress 400 mg Tablet] 400 mg PO Q12 03/03/18 Ritonavir [Norvir 100 mg Tablet] 100 mg PO DAILY 03/03/18 Valsartan [Diovan] 320 mg PO QHS 03/03/18 Zinc Oxide [Zinc Oxide 20% Ointment 28.35 gm] 1 applic TOP DAILYP PRN 03/03/18 Darunavir Ethanolate [Prezista] 600 mg PO BID 03/06/18 Etravirine [Intelence] 200 mg PO BID 03/06/18 Allergies/Adverse Reactions: No Known Drug Allergies Allergy (Verified 11/08/17 12:12) olive extract [[place]] Allergy (Verified 11/08/17 12:10) Shortness of Breath - Social History Lives with: Jail Family History: Reviewed & Not Pertinent Parental Family History Reviewed: No Children Family History Reviewed: No Sibling(s) Family History Reviewed.: No Smoking Status: Former Smoker Frequency of Alcohol Use: None Hx Recreational Drug Use: No - former drug user Drugs: None Hx Prescription Drug Abuse: No - Past Medical History Cardiac Medical History: Reports: Hx Coronary Artery Disease, Hx Hypercholesterolemia, Hx Hypertension Denies: Hx Heart Attack Pulmonary Medical History: Reports: Hx COPD, Hx Pneumonia Denies: Hx Asthma, Hx Bronchitis, Hx Tuberculosis Neurological Medical History: Denies: Hx Cerebrovascular Accident Endocrine Medical History: Reports: Hx Diabetes Mellitus Type 2 Renal/ Medical History: Denies: Hx Peritoneal Dialysis Malignancy Medical History: Reports Other - Head and neck cancer GI Medical History: Reports: Hx Hepatitis - HEP C,HIV+. Denies: Hx Hiatal Hernia, Hx Ulcer Musculoskeltal Medical History: Reports Hx Arthritis Psychiatric Medical History: Denies: Hx Depression Infectious Medical History: Reports: Hx C-Diff, Hx Hepatitis - HEP C,HIV+, Hx HIV, Hx VRE - Surgical History Past Surgical History: Reports: Hx Cardiac Catheterization, Hx Cardiac Surgery - stent placement, Hx Coronary Stent, Hx Orthopedic Surgery - lumbar surgery, Other - peg. Denies: Hx Open Heart Surgery, Hx Pacemaker Review of systems Constitutional: Weakness, Weight loss Cardiovascular: No symptoms reported Respiratory: No symptoms reported Gastrointestinal: Nausea Musculoskeltal: Neck pain Neurological/Psychological: Confusion, Weakness, Headaches Ojective:Exam Vital Signs: Temp Pulse Resp BP Pulse Ox 97.5 F 104 H 20 111/80 100 03/08/18 19:41 03/08/18 19:41 03/08/18 19:41 03/08/18 19:41 03/08/18 19:41 Intake & Output 03/07/18 03/08/18 03/09/18 06:59 06:59 06:59 Intake Total 4102 2843 1989 Output Total 4200 3150 2500 Balance -98 -307 -510 Weight 52.2 kg 50.6 kg - General General Appearance: Alert In distress: Mild - HEENT Head: Normocephalic Eyes: Normal Pupils: PERRLA Sinus: Normal Mouth/Lips: Normal Mucous membrane: Moist - Neck Neck: Other - muscular tightness back of neck and shoulders bilaterally - Respiratory Respiratory Status: No respiratory distress Breath sounds: Clear - Cardiovascular Rhythm: Regular - Abdominal Inspection: Other - very thin Tenderness: Nontender - Neurological Cognition: Normal Orientation: Alert, Oriented to place, Oriented to time Cranial nerves: Normal Motor exam: Equal seo professional Neurological Note: Headache, denies visual changes, states headache mostly back of head and neck - Psychological Associated symptoms: Anxious, Unable to sleep Plan and Recommendation Plan and Recommendation: Repositioned patient and massaged neck for relief pain. Says massage relieved pain some and muscles relaxed some. Appreciate input of nurse who is very concerned with patient and stopping his pain. Recommend muscle relaxant such as Robaxin 500mg BID to help relieve muscle tightness which may be causing headache. Also, may need stronger pain medication, such as hydrocodone for pain when severe as today. Nurse will call Dr to check for order to see if patient can be more comfortable. Baylee said he has taken hydrocodone before with no side effects. Will follow, appreciate PC consult. - Time Spent with Patient Time spent with patient: 15 to 30 Minutes Time: 30 min with consultation, chart reviwew and time spent with patient.
[2018-03-09] MEDS: METOPROLOL SUCCINATE 50 MG TAB.SR.24H PO SCH ×2 (05:12→18:28)
[2018-03-09] MEDS: HEPARIN SOD (PORCINE) 5,000 UNIT/ML 1 ML SYRINGE SUBCUT SCH ×3 (05:12→22:34)
[2018-03-09] MEDS: POTASSIUM CHLORIDE 10 MEQ TABLET.SA PO SCH ×2 (05:12→08:04)
[2018-03-09 05:58] LABS: HEMATOCRIT 27.8 % (37.9-51.0); HEMOGLOBIN 9.5 g/dL (13.5-17.0); MEAN CORPUSCULAR HEMOGLOBIN 31.7 pg (27.0-33.4); MEAN CORPUSCULAR HGB CONC 34.3 g/dL (32.0-36.0); MEAN CORPUSCULAR VOLUME 93 fl (80-97); PLATELET COUNT 202 10^3/uL (150-450); RED CELL DISTRIBUTION WIDTH 18.5 % (11.5-14.0); WHITE BLOOD COUNT 7.2 10^3/uL (4.0-10.5)
[2018-03-09 06:14] LABS: ALANINE AMINOTRANSFERASE 84 U/L (21-72); ALBUMIN 2.8 g/dL (3.5-5.0); ALKALINE PHOSPHATASE 129 U/L (38-126); ANION GAP 13 (5-19); ASPARTATE AMINO TRANSFERASE 43 U/L (17-59); BILIRUBIN,DIRECT 0.6 mg/dL (0.0-0.4); BILIRUBIN,TOTAL 0.7 mg/dL (0.2-1.3); BLOOD UREA NITROGEN 16 mg/dL (7-20); CALCIUM 8.1 mg/dL (8.4-10.2); CARBON DIOXIDE 19 mmol/L (22-30); CHLORIDE 106 mmol/L (98-107); GLUCOSE 149 mg/dL (75-110); SODIUM 137.8 mmol/L (137-145); TOTAL PROTEIN 6.3 g/dL (6.3-8.2)
[2018-03-09 06:21] LABS: POTASSIUM 2.8 mmol/L (3.6-5.0)
[2018-03-09 06:30] LABS: ABSOLUTE LYMPHOCYTES# (MANUAL) 0.4 10^3/uL (0.5-4.7); ABSOLUTE MONOCYTES # (MANUAL) 0.6 10^3/uL (0.1-1.4); ABSOLUTE NEUTROPHILS# (MANUAL) 6.3 10^3/uL (1.7-8.2); BASOPHILS % (MANUAL) 0 % (0-2); EOSINOPHILS % (MANUAL) 0 % (0-6); LYMPHOCYTES % (MANUAL) 5 % (13-45); MONOCYTES % (MANUAL) 8 % (3-13); NUCLEATED RED BLOOD CELLS 4 /100 WBC (0); SEGMENTED NEUTROPHILS % (MAN) 87 % (42-78); TOTAL CELLS COUNTED 100
[2018-03-09 06:33] LABS: ANISOCYTOSIS 2+; BURR CELLS 1+; OVALOCYTES SLIGHT; POIKILOCYTOSIS 1+; POLYCHROMASIA SLIGHT; SCHISTOCYTES 1+; TEAR DROP CELLS SLIGHT; TOXIC GRANULATION 1+
[2018-03-09 06:34] LABS: PLATELET COMMENT ADEQUATE; PLATELET LARGE PRESENT
[2018-03-09] MEDS: NORMAL SALINE 1000 ML 1,000 ML IV PRN ×2 (08:44→18:30)
[2018-03-09] MEDS: LEVETIRACETAM 500 MG TABLET PO SCH ×2 (08:45→22:34)
[2018-03-09] MEDS: RITONAVIR 100 MG TABLET PO SCH (08:46)
[2018-03-09] MEDS: ETRAVIRINE 200 MG PO SCH ×2 (08:46→18:28)
[2018-03-09] MEDS: DARUNAVIR 600 MG PO SCH ×2 (08:46→18:28)
[2018-03-09] MEDS: RALTEGRAVIR POTASSIUM 400 MG TABLET PO SCH ×2 (08:47→22:34)
[2018-03-09] MEDS ORDERED: ETRAVIRINE PO SCH (09:00)
[2018-03-09] MEDS ORDERED: (PENDING PHARMACY ID) (Etravirine [Intelence] 200 MG) PO SCH (10:00)
[2018-03-09] MEDS: INSULIN LISPRO 100 UNIT/ML 3 ML VIAL SUBCUT PRN ×2 (13:10→22:34)
--- NOTE | 2018-03-09 16:04 | RADIOLOGY REPORT (SQ) ---
EXAM DESCRIPTION: NM WHOLE BODY BONE SCAN COMPLETED DATE/TIME: 03/09/2018 3:54 pm REASON FOR STUDY: bone pain ,Suspect bone mets COMPARISON: No available imaging studies for comparison. RADIONUCLIDE AND DOSE: 20.7 millicuries Tc99m MDP. The route of agent administration: Intravenous. ADDITIONAL DRUGS AND DOSES: None. TECHNIQUE: Routine delayed images at 3 hour post radionuclide injection acquired of the bony skeleto n including anterior and posterior whole-body projections and additional focused images as needed. LIMITATIONS: None. FINDINGS: BONES: Normal visualization without areas of photopenia or increased bony uptake of radiop harmaceutical. KIDNEYS: Symmetric excretion without obstruction. OTHER: Focal activity in the anterior right chest is artifact due to injection of the port. IMPRESSION: NORMAL BONE SCAN. COMMENT: Quality measure 147: No available prior imaging studies for comparison TECHNICAL DOCUMENTATION: JOB ID: [id number] [employer] All Rights Reserved Reading location - IP/workstation name: [email or web address]
[2018-03-09 17:21] LABS: ANION GAP 13 (5-19); BLOOD UREA NITROGEN 15 mg/dL (7-20); CALCIUM 7.9 mg/dL (8.4-10.2); CARBON DIOXIDE 16 mmol/L (22-30); CHLORIDE 109 mmol/L (98-107); GLUCOSE 167 mg/dL (75-110); POTASSIUM 3.6 mmol/L (3.6-5.0)
[2018-03-09] MEDS: NICOTINE 21 MG/24 HR PATCH.TD24 TD SCH (18:28)
[2018-03-09] MEDS: VALSARTAN 160 MG TABLET PO SCH (22:34)
--- NOTE | 2018-03-09 23:37 | PDOC PROGRESS REPORT ---
Subjective Progress Note for:: 03/09/18 Subjective:: Bone scan was negative, patient seen by the bedside Reason For Visit: MENINGITIS,HIV Physical Exam Vital Signs: Temp Pulse Resp BP Pulse Ox 97.5 F 83 16 126/89 H 100 03/09/18 19:38 03/09/18 19:38 03/09/18 19:38 03/09/18 19:38 03/09/18 19:38 Intake & Output 03/08/18 03/09/18 03/10/18 06:59 06:59 06:59 Intake Total 2843 3430 2145 Output Total 3150 4100 2300 Balance -307 -489 -155 Weight 50.6 kg 53 kg General appearance: PRESENT: no acute distress Eye exam: PRESENT: PERRLA Respiratory exam: PRESENT: clear to auscultation melba Cardiovascular exam: PRESENT: +S1, +S2 GI/Abdominal exam: PRESENT: soft Results Laboratory Results: 03/09/18 05:15 03/09/18 16:50 03/09/18 03/09/18 03/09/18 05:15 05:15 16:50 WBC 7.2 RBC 3.00 L Hgb 9.5 L Hct 27.8 L MCV 93 MCH 31.7 MCHC 34.3 RDW 18.5 H Plt Count 202 Seg Neutrophils % Not Reportable Lymphocytes % Not Reportable Monocytes % Not Reportable Eosinophils % Not Reportable Basophils % Not Reportable Absolute Neutrophils Not Reportable Absolute Lymphocytes Not Reportable Absolute Monocytes Not Reportable Absolute Eosinophils Not Reportable Absolute Basophils Not Reportable Sodium 137.8 138.0 Potassium 2.8 L* 3.6 Chloride 106 109 H Carbon Dioxide 19 L 16 L Anion Gap 13 13 BUN 16 15 Creatinine 0.58 0.56 Est GFR ( Amer) > 60 > 60 Est GFR (Non-Af Amer) > 60 > 60 Glucose 149 H 167 H Calcium 8.1 L 7.9 L Total Bilirubin 0.7 AST 43 ALT 84 H Alkaline Phosphatase 129 H Total Protein 6.3 Albumin 2.8 L Impressions: Chest X-Ray 03/02/18 19:43 IMPRESSION: NO ACUTE RADIOGRAPHIC FINDING IN THE CHEST. NO SIGNIFICANT CHANGE FROM PRIOR STUDY. Chest/Abdomen CTA 03/02/18 20:35 IMPRESSION: UNREMARKABLE CTA CHEST WITHOUT PULMONARY EMBOLI. INTERVAL IMPROVEMENT OF PREVIOUSLY IDENTIFIED MULTIFOCAL AIRSPACE DISEASE WITH NEW TREE-IN-BUD IN NODULAR OPACITIES IN THE RIGHT UPPER AND RIGHT LOWER LOBES SUSPICIOUS FOR RECURRENT PNEUMONITIS/PNEUMONIA. Lumbar Puncture 03/04/18 11:26 IMPRESSION: Lumbar puncture under fluoroscopy. No immediate complication. Guidance Fluoroscopy 03/04/18 11:33 IMPRESSION: Please see combined report for performance of procedure and radiologic supervision and interpretation. Body Scan Nuclear Medicine 03/09/18 00:00 IMPRESSION: NORMAL BONE SCAN. Assessment & Plan - Diagnosis (1) HIV (human immunodeficiency virus infection) Is this a current diagnosis for this admission?: Yes (2) Head and neck cancer Is this a current diagnosis for this admission?: Yes (3) Atrial fibrillation Qualifiers: Atrial fibrillation type: paroxysmal Qualified Code(s): I48.0 - Paroxysmal atrial fibrillation Is this a current diagnosis for this admission?: Yes (4) Sepsis Qualifiers: Sepsis type: sepsis due to unspecified organism Qualified Code(s): A41.9 - Sepsis, unspecified organism Is this a current diagnosis for this admission?: Yes
[2018-03-10] MEDS: NORMAL SALINE 1000 ML 1,000 ML IV PRN ×2 (03:22→10:02)
[2018-03-10 05:49] LABS: HEMATOCRIT 27.7 % (37.9-51.0); HEMOGLOBIN 9.3 g/dL (13.5-17.0); MEAN CORPUSCULAR HEMOGLOBIN 31.5 pg (27.0-33.4); MEAN CORPUSCULAR HGB CONC 33.6 g/dL (32.0-36.0); MEAN CORPUSCULAR VOLUME 94 fl (80-97); RED BLOOD COUNT 2.96 10^6/uL (4.35-5.55); RED CELL DISTRIBUTION WIDTH 18.6 % (11.5-14.0); WHITE BLOOD COUNT 10.9 10^3/uL (4.0-10.5)
[2018-03-10 06:00] LABS: ANION GAP 9 (5-19); BLOOD UREA NITROGEN 12 mg/dL (7-20); CALCIUM 8.5 mg/dL (8.4-10.2); CARBON DIOXIDE 20 mmol/L (22-30); CHLORIDE 110 mmol/L (98-107); GLUCOSE 56 mg/dL (75-110); POTASSIUM 3.3 mmol/L (3.6-5.0); SODIUM 138.8 mmol/L (137-145)
[2018-03-10 06:14] LABS: ABSOLUTE LYMPHOCYTES# (MANUAL) 0.8 10^3/uL (0.5-4.7); ABSOLUTE MONOCYTES # (MANUAL) 0.2 10^3/uL (0.1-1.4); ABSOLUTE NEUTROPHILS# (MANUAL) 9.9 10^3/uL (1.7-8.2); BASOPHILS % (MANUAL) 0 % (0-2); EOSINOPHILS % (MANUAL) 0 % (0-6); LYMPHOCYTES % (MANUAL) 7 % (13-45); MONOCYTES % (MANUAL) 2 % (3-13); SEGMENTED NEUTROPHILS % (MAN) 91 % (42-78); TOTAL CELLS COUNTED 100
[2018-03-10 06:16] LABS: ACANTHOCYTES 1+; ANISOCYTOSIS 2+; POIKILOCYTOSIS 2+; TOXIC VACUOLATION PRESENT
[2018-03-10 06:17] LABS: OVALOCYTES 1+; PLATELET CLUMPS PRESENT; PLATELET COMMENT ADEQUATE; PLATELET COUNT 186 10^3/uL (150-450); TARGET CELLS 1+
[2018-03-10] MEDS: METOPROLOL SUCCINATE 50 MG TAB.SR.24H PO SCH ×2 (06:52→17:48)
[2018-03-10] MEDS: HEPARIN SOD (PORCINE) 5,000 UNIT/ML 1 ML SYRINGE SUBCUT SCH ×3 (06:52→22:10)
[2018-03-10] MEDS: HYDROCODONE/ACETAMINOPHEN 5-325 MG TABLET PO PRN ×2 (09:58→17:49)
[2018-03-10] MEDS: LEVETIRACETAM 500 MG TABLET PO SCH ×2 (09:59→22:15)
[2018-03-10] MEDS: RITONAVIR 100 MG TABLET PO SCH (09:59)
[2018-03-10] MEDS: DARUNAVIR 600 MG PO SCH ×2 (10:00→17:49)
[2018-03-10] MEDS: ETRAVIRINE 200 MG PO SCH ×2 (10:00→17:50)
[2018-03-10] MEDS: RALTEGRAVIR POTASSIUM 400 MG TABLET PO SCH ×2 (10:00→22:11)
--- NOTE | 2018-03-10 10:55 | PDOC PROGRESS REPORT ---
Subjective Progress Note for:: 03/10/18 Subjective:: Patient is currently doing fair except complaining some back pain pt have a bone scan was done yesterday was all negative Head and neck cancers and HIV and patients currently follow with the oncology and infectious disease Reason For Visit: MENINGITIS,HIV Physical Exam Vital Signs: Temp Pulse Resp BP Pulse Ox 97.5 F 64 18 131/86 H 99 03/10/18 03:20 03/10/18 03:20 03/10/18 03:20 03/10/18 03:20 03/10/18 03:20 Intake & Output 03/09/18 03/10/18 03/11/18 06:59 06:59 06:59 Intake Total 3430 4377 Output Total 4100 3900 Balance -670 477 Weight 53 kg 50.2 kg General appearance: PRESENT: no acute distress, thin Eye exam: PRESENT: PERRLA Respiratory exam: PRESENT: clear to auscultation melba Cardiovascular exam: PRESENT: +S1, +S2 GI/Abdominal exam: PRESENT: normal bowel sounds, soft Extremities exam: ABSENT: pedal edema Neurological exam: PRESENT: alert, awake, oriented to person, oriented to place Skin exam: PRESENT: dry Results Laboratory Results: 03/10/18 04:50 03/10/18 04:50 03/09/18 03/10/18 03/10/18 16:50 04:50 04:50 WBC 10.9 H RBC 2.96 L Hgb 9.3 L Hct 27.7 L MCV 94 MCH 31.5 MCHC 33.6 RDW 18.6 H Plt Count 186 Seg Neutrophils % Not Reportable Lymphocytes % Not Reportable Monocytes % Not Reportable Eosinophils % Not Reportable Basophils % Not Reportable Absolute Neutrophils Not Reportable Absolute Lymphocytes Not Reportable Absolute Monocytes Not Reportable Absolute Eosinophils Not Reportable Absolute Basophils Not Reportable Sodium 138.0 138.8 Potassium 3.6 3.3 L Chloride 109 H 110 H Carbon Dioxide 16 L 20 L Anion Gap 13 9 BUN 15 12 Creatinine 0.56 0.57 Est GFR ( Amer) > 60 > 60 Est GFR (Non-Af Amer) > 60 > 60 Glucose 167 H 56 L Calcium 7.9 L 8.5 Impressions: Chest X-Ray 03/02/18 19:43 IMPRESSION: NO ACUTE RADIOGRAPHIC FINDING IN THE CHEST. NO SIGNIFICANT CHANGE FROM PRIOR STUDY. Chest/Abdomen CTA 03/02/18 20:35 IMPRESSION: UNREMARKABLE CTA CHEST WITHOUT PULMONARY EMBOLI. INTERVAL IMPROVEMENT OF PREVIOUSLY IDENTIFIED MULTIFOCAL AIRSPACE DISEASE WITH NEW TREE-IN-BUD IN NODULAR OPACITIES IN THE RIGHT UPPER AND RIGHT LOWER LOBES SUSPICIOUS FOR RECURRENT PNEUMONITIS/PNEUMONIA. Lumbar Puncture 03/04/18 11:26 IMPRESSION: Lumbar puncture under fluoroscopy. No immediate complication. Guidance Fluoroscopy 03/04/18 11:33 IMPRESSION: Please see combined report for performance of procedure and radiologic supervision and interpretation. Body Scan Nuclear Medicine 03/09/18 00:00 IMPRESSION: NORMAL BONE SCAN. Assessment & Plan - Diagnosis (1) Sepsis Qualifiers: Sepsis type: sepsis due to unspecified organism Qualified Code(s): A41.9 - Sepsis, unspecified organism Is this a current diagnosis for this admission?: Yes (2) Acute renal failure Qualifiers: Acute renal failure type: unspecified Qualified Code(s): N17.9 - Acute kidney failure, unspecified Is this a current diagnosis for this admission?: Yes (3) Adult failure to thrive syndrome Is this a current diagnosis for this admission?: Yes (4) Anemia Qualifiers: Is this a current diagnosis for this admission?: Yes (5) Aspiration pneumonia Qualifiers: Lung location: unspecified part of lung Is this a current diagnosis for this admission?: Yes (6) CAD (coronary artery disease), [place] coronary artery Qualifiers: [place] vs. transplanted heart: [place] heart Associated angina: without angina Qualified Code(s): I25.10 - Atherosclerotic heart disease of [place] coronary artery without angina pectoris Is this a current diagnosis for this admission?: Yes (7) HIV (human immunodeficiency virus infection) Is this a current diagnosis for this admission?: Yes (8) Head and neck cancer Is this a current diagnosis for this admission?: Yes - Time Time Spent with patient: 15-24 minutes Medications reviewed and adjusted accordingly: Yes Anticipated discharge: Other Within: Other - Inpatient Certification Medical Necessity: Need Close Monitoring Due to Risk of Patient Decompensation, Need For IV Fluids Post Hospital Care: D/C [employer] Documentation - Plan Summary Plan Summary: Continues to current medications replace the potassium
[2018-03-10] MEDS: NICOTINE 21 MG/24 HR PATCH.TD24 TD SCH (17:50)
[2018-03-10] MEDS: VALSARTAN 160 MG TABLET PO SCH (22:11)
[2018-03-10] MEDS: INSULIN LISPRO 100 UNIT/ML 3 ML VIAL SUBCUT PRN (22:11)
[2018-03-11] MEDS: HEPARIN SOD (PORCINE) 5,000 UNIT/ML 1 ML SYRINGE SUBCUT SCH ×3 (05:13→21:19)
[2018-03-11] MEDS: METOPROLOL SUCCINATE 50 MG TAB.SR.24H PO SCH ×2 (05:13→18:32)
[2018-03-11 06:09] LABS: HEMATOCRIT 29.3 % (37.9-51.0); HEMOGLOBIN 9.9 g/dL (13.5-17.0); MEAN CORPUSCULAR HEMOGLOBIN 31.7 pg (27.0-33.4); MEAN CORPUSCULAR HGB CONC 33.9 g/dL (32.0-36.0); MEAN CORPUSCULAR VOLUME 94 fl (80-97); RED BLOOD COUNT 3.13 10^6/uL (4.35-5.55); RED CELL DISTRIBUTION WIDTH 19.1 % (11.5-14.0); WHITE BLOOD COUNT 9.2 10^3/uL (4.0-10.5)
[2018-03-11 06:14] LABS: ANION GAP 11 (5-19); BLOOD UREA NITROGEN 9 mg/dL (7-20); CALCIUM 8.4 mg/dL (8.4-10.2); CARBON DIOXIDE 19 mmol/L (22-30); CHLORIDE 108 mmol/L (98-107); GLUCOSE 75 mg/dL (75-110); POTASSIUM 3.2 mmol/L (3.6-5.0); SODIUM 137.6 mmol/L (137-145)
[2018-03-11 06:30] LABS: ABSOLUTE LYMPHOCYTES# (MANUAL) 0.5 10^3/uL (0.5-4.7); ABSOLUTE MONOCYTES # (MANUAL) 0.2 10^3/uL (0.1-1.4); ABSOLUTE NEUTROPHILS# (MANUAL) 8.6 10^3/uL (1.7-8.2); ANISOCYTOSIS 2+; BASOPHILS % (MANUAL) 0 % (0-2); EOSINOPHILS % (MANUAL) 0 % (0-6); LYMPHOCYTES % (MANUAL) 5 % (13-45); MONOCYTES % (MANUAL) 2 % (3-13); POIKILOCYTOSIS 1+; SEGMENTED NEUTROPHILS % (MAN) 93 % (42-78); TOTAL CELLS COUNTED 100
[2018-03-11 06:31] LABS: BURR CELLS 1+; OVALOCYTES SLIGHT; PLATELET CLUMPS PRESENT; PLATELET COMMENT ADEQUATE
[2018-03-11 06:32] LABS: PLATELET COUNT 176 10^3/uL (150-450)
[2018-03-11] MEDS ORDERED: POTASSIUM CHLORIDE 20 MEQ/15 ML UDCUP PO ONE (07:41)
[2018-03-11] MEDS: LEVETIRACETAM 500 MG TABLET PO SCH ×2 (08:31→21:18)
[2018-03-11] MEDS: DARUNAVIR 600 MG PO SCH ×2 (08:32→18:34)
[2018-03-11] MEDS: ETRAVIRINE 200 MG PO SCH ×2 (08:32→18:34)
[2018-03-11] MEDS: RITONAVIR 100 MG TABLET PO SCH (08:32)
[2018-03-11] MEDS: HYDROCODONE/ACETAMINOPHEN 5-325 MG TABLET PO PRN ×2 (08:34→21:20)
[2018-03-11] MEDS: NORMAL SALINE 1000 ML 1,000 ML IV PRN ×2 (08:35→18:31)
[2018-03-11] MEDS: RALTEGRAVIR POTASSIUM 400 MG TABLET PO SCH ×2 (08:37→21:18)
--- NOTE | 2018-03-11 10:11 | PDOC PROGRESS REPORT ---
Subjective Progress Note for:: 03/11/18 Subjective:: Patient is currently doing fair except complaining some back pain pt have a bone scan was done yesterday was all negative Head and neck cancers and HIV and patients currently follow with the oncology and infectious disease Reason For Visit: MENINGITIS,HIV Physical Exam Vital Signs: Temp Pulse Resp BP Pulse Ox 98.1 F 78 16 110/77 100 03/11/18 06:59 03/11/18 06:59 03/11/18 06:59 03/11/18 06:59 03/11/18 06:59 Intake & Output 03/10/18 03/11/18 03/12/18 06:59 06:59 06:59 Intake Total 4377 4340 Output Total 3900 5175 Balance 477 -835 Weight 50.2 kg 51 kg General appearance: PRESENT: no acute distress, thin Head exam: PRESENT: atraumatic, normocephalic Eye exam: PRESENT: conjunctiva pink, EOMI, PERRLA. ABSENT: scleral icterus Ear exam: PRESENT: normal external ear exam Mouth exam: PRESENT: moist, tongue midline Neck exam: PRESENT: full ROM. ABSENT: carotid bruit, JVD, lymphadenopathy, thyromegaly Respiratory exam: PRESENT: clear to auscultation melba Cardiovascular exam: PRESENT: RRR. ABSENT: diastolic murmur, rubs, systolic murmur Pulses: PRESENT: normal dorsalis pedis pul, +2 pedal pulses bilateral Vascular exam: PRESENT: normal capillary refill GI/Abdominal exam: PRESENT: normal bowel sounds, soft. ABSENT: distended, guarding, mass, organolmegaly, rebound, tenderness Rectal exam: PRESENT: deferred Extremities exam: ABSENT: pedal edema Neurological exam: PRESENT: alert, awake, oriented to person, oriented to place , oriented to time, oriented to situation, CN II-XII grossly intact. ABSENT: motor sensory deficit Psychiatric exam: PRESENT: appropriate affect, normal mood. ABSENT: homicidal ideation, suicidal ideation Skin exam: PRESENT: dry, intact, warm. ABSENT: cyanosis, rash Results Laboratory Results: 03/11/18 05:00 03/11/18 05:00 03/11/18 03/11/18 05:00 05:00 WBC 9.2 RBC 3.13 L Hgb 9.9 L Hct 29.3 L MCV 94 MCH 31.7 MCHC 33.9 RDW 19.1 H Plt Count 176 Seg Neutrophils % Not Reportable Lymphocytes % Not Reportable Monocytes % Not Reportable Eosinophils % Not Reportable Basophils % Not Reportable Absolute Neutrophils Not Reportable Absolute Lymphocytes Not Reportable Absolute Monocytes Not Reportable Absolute Eosinophils Not Reportable Absolute Basophils Not Reportable Sodium 137.6 Potassium 3.2 L Chloride 108 H Carbon Dioxide 19 L Anion Gap 11 BUN 9 Creatinine 0.50 L Est GFR ( Amer) > 60 Est GFR (Non-Af Amer) > 60 Glucose 75 Calcium 8.4 Impressions: Chest X-Ray 03/02/18 19:43 IMPRESSION: NO ACUTE RADIOGRAPHIC FINDING IN THE CHEST. NO SIGNIFICANT CHANGE FROM PRIOR STUDY. Chest/Abdomen CTA 03/02/18 20:35 IMPRESSION: UNREMARKABLE CTA CHEST WITHOUT PULMONARY EMBOLI. INTERVAL IMPROVEMENT OF PREVIOUSLY IDENTIFIED MULTIFOCAL AIRSPACE DISEASE WITH NEW TREE-IN-BUD IN NODULAR OPACITIES IN THE RIGHT UPPER AND RIGHT LOWER LOBES SUSPICIOUS FOR RECURRENT PNEUMONITIS/PNEUMONIA. Lumbar Puncture 03/04/18 11:26 IMPRESSION: Lumbar puncture under fluoroscopy. No immediate complication. Guidance Fluoroscopy 03/04/18 11:33 IMPRESSION: Please see combined report for performance of procedure and radiologic supervision and interpretation. Body Scan Nuclear Medicine 03/09/18 00:00 IMPRESSION: NORMAL BONE SCAN. Assessment & Plan - Diagnosis (1) Sepsis Qualifiers: Sepsis type: sepsis due to unspecified organism Qualified Code(s): A41.9 - Sepsis, unspecified organism Is this a current diagnosis for this admission?: Yes (2) Acute renal failure Qualifiers: Acute renal failure type: unspecified Qualified Code(s): N17.9 - Acute kidney failure, unspecified Is this a current diagnosis for this admission?: Yes (3) Adult failure to thrive syndrome Is this a current diagnosis for this admission?: Yes (4) Anemia Qualifiers: Is this a current diagnosis for this admission?: Yes (5) Aspiration pneumonia Qualifiers: Lung location: unspecified part of lung Is this a current diagnosis for this admission?: Yes (6) CAD (coronary artery disease), [place] coronary artery Qualifiers: [place] vs. transplanted heart: [place] heart Associated angina: without angina Qualified Code(s): I25.10 - Atherosclerotic heart disease of [place] coronary artery without angina pectoris Is this a current diagnosis for this admission?: Yes (7) HIV (human immunodeficiency virus infection) Is this a current diagnosis for this admission?: Yes (8) Head and neck cancer Is this a current diagnosis for this admission?: Yes - Time Time Spent with patient: 15-24 minutes Medications reviewed and adjusted accordingly: Yes Anticipated discharge: Other Within: Other - Inpatient Certification Medical Necessity: Need Close Monitoring Due to Risk of Patient Decompensation Post Hospital Care: D/C [facility] [employer] Documentation - Plan Summary Plan Summary: Replace the potassium
[2018-03-11] MEDS: NICOTINE 21 MG/24 HR PATCH.TD24 TD SCH (18:32)
[2018-03-11] MEDS: INSULIN LISPRO 100 UNIT/ML 3 ML VIAL SUBCUT PRN ×2 (19:02→21:19)
[2018-03-11] MEDS: VALSARTAN 160 MG TABLET PO SCH (21:17)
[2018-03-12] MEDS: METOPROLOL SUCCINATE 50 MG TAB.SR.24H PO SCH ×2 (06:19→17:29)
[2018-03-12] MEDS: HEPARIN SOD (PORCINE) 5,000 UNIT/ML 1 ML SYRINGE SUBCUT SCH ×3 (06:19→21:51)
[2018-03-12] MEDS: NORMAL SALINE 1000 ML 1,000 ML IV PRN (06:20)
[2018-03-12 06:52] LABS: ABSOLUTE EOSINOPHILS # (AUTO) 0.1 10^3/uL (0.0-0.6); ABSOLUTE LYMPHOCYTES (AUTO) 0.5 10^3/uL (0.5-4.7); ABSOLUTE MONOCYTES (AUTO) 0.5 10^3/uL (0.1-1.4); ABSOLUTE NEUT (AUTO) 6.4 10^3/uL (1.7-8.2); BASOPHILS % (AUTO) 0.4 % (0-2); EOSINOPHILS % (AUTO) 1.1 % (0-6); HEMATOCRIT 26.7 % (37.9-51.0); HEMOGLOBIN 9.1 g/dL (13.5-17.0); LYMPHOCYTES % (AUTO) 7.1 % (13-45); MEAN CORPUSCULAR VOLUME 94 fl (80-97); MONOCYTES % (AUTO) 7.1 % (3-13); PLATELET COUNT 143 10^3/uL (150-450); RED BLOOD COUNT 2.83 10^6/uL (4.35-5.55); RED CELL DISTRIBUTION WIDTH 19.5 % (11.5-14.0); SEGMENTED NEUTROPHILS % (AUTO) 84.3 % (42-78); TOTAL CELLS COUNTED % (AUTO) 100 %; WHITE BLOOD COUNT 7.6 10^3/uL (4.0-10.5)
[2018-03-12 07:12] LABS: ANION GAP 10 (5-19); BLOOD UREA NITROGEN 9 mg/dL (7-20); CALCIUM 8.8 mg/dL (8.4-10.2); CARBON DIOXIDE 19 mmol/L (22-30); CHLORIDE 107 mmol/L (98-107); GLUCOSE 92 mg/dL (75-110); POTASSIUM 3.8 mmol/L (3.6-5.0); SODIUM 136.3 mmol/L (137-145)
[2018-03-12 07:24] LABS: ANISOCYTOSIS 2+; HYPOCHROMASIA SLIGHT; POIKILOCYTOSIS 1+; SCHISTOCYTES 1+; TOXIC GRANULATION 1+
[2018-03-12 07:25] LABS: PLATELET COMMENT ADEQUATE
[2018-03-12] MEDS: RALTEGRAVIR POTASSIUM 400 MG TABLET PO SCH ×2 (09:23→21:51)
[2018-03-12] MEDS: ETRAVIRINE 200 MG PO SCH ×2 (09:23→17:28)
[2018-03-12] MEDS: DARUNAVIR 600 MG PO SCH ×2 (09:23→17:28)
[2018-03-12] MEDS: LEVETIRACETAM 500 MG TABLET PO SCH ×2 (09:23→21:51)
[2018-03-12] MEDS: RITONAVIR 100 MG TABLET PO SCH (09:23)
[2018-03-12] MEDS: INSULIN LISPRO 100 UNIT/ML 3 ML VIAL SUBCUT PRN ×3 (11:25→23:51)
[2018-03-12] MEDS: HYDROCODONE/ACETAMINOPHEN 5-325 MG TABLET PO PRN ×2 (13:31→21:53)
[2018-03-12] MEDS: NICOTINE 21 MG/24 HR PATCH.TD24 TD SCH (17:28)
--- NOTE | 2018-03-12 21:21 | PDOC PROGRESS REPORT ---
Subjective Progress Note for:: 03/12/18 Subjective:: Patient is presently stable he should be [facility] Reason For Visit: MENINGITIS,HIV Physical Exam Vital Signs: Temp Pulse Resp BP Pulse Ox 97.5 F 86 15 136/78 H 98 03/12/18 19:34 03/12/18 19:34 03/12/18 19:34 03/12/18 19:34 03/12/18 19:34 Intake & Output 03/11/18 03/12/18 03/13/18 06:59 06:59 06:59 Intake Total 4340 4357 2014 Output Total 5174 3225 1200 Balance -835 1132 815 Weight 51 kg 51.6 kg General appearance: PRESENT: no acute distress Head exam: PRESENT: atraumatic, normocephalic Eye exam: PRESENT: conjunctiva pink, EOMI, PERRLA Ear exam: PRESENT: normal external ear exam Mouth exam: PRESENT: moist, tongue midline Neck exam: PRESENT: full ROM Respiratory exam: PRESENT: clear to auscultation melba Cardiovascular exam: PRESENT: RRR, +S1, +S2 Pulses: PRESENT: normal dorsalis pedis pul, +2 pedal pulses bilateral Vascular exam: PRESENT: normal capillary refill GI/Abdominal exam: PRESENT: normal bowel sounds, soft Rectal exam: PRESENT: deferred Neurological exam: PRESENT: alert, awake, oriented to person, oriented to place , oriented to time, oriented to situation, CN II-XII grossly intact. ABSENT: motor sensory deficit Psychiatric exam: PRESENT: appropriate affect, normal mood. ABSENT: homicidal ideation, suicidal ideation Skin exam: PRESENT: dry, intact, warm. ABSENT: cyanosis, rash Results Laboratory Results: 03/12/18 06:30 03/12/18 06:30 03/12/18 03/12/18 06:30 06:30 WBC 7.6 RBC 2.83 L Hgb 9.1 L Hct 26.7 L MCV 94 MCH 32.0 MCHC 34.0 RDW 19.5 H Plt Count 143 L Seg Neutrophils % 84.3 H Lymphocytes % 7.1 L Monocytes % 7.1 Eosinophils % 1.1 Basophils % 0.4 Absolute Neutrophils 6.4 Absolute Lymphocytes 0.5 Absolute Monocytes 0.5 Absolute Eosinophils 0.1 Absolute Basophils 0.0 Sodium 136.3 L Potassium 3.8 Chloride 107 Carbon Dioxide 19 L Anion Gap 10 BUN 9 Creatinine 0.54 Est GFR ( Amer) > 60 Est GFR (Non-Af Amer) > 60 Glucose 92 Calcium 8.8 Impressions: Chest X-Ray 03/02/18 19:43 IMPRESSION: NO ACUTE RADIOGRAPHIC FINDING IN THE CHEST. NO SIGNIFICANT CHANGE FROM PRIOR STUDY. Chest/Abdomen CTA 03/02/18 20:35 IMPRESSION: UNREMARKABLE CTA CHEST WITHOUT PULMONARY EMBOLI. INTERVAL IMPROVEMENT OF PREVIOUSLY IDENTIFIED MULTIFOCAL AIRSPACE DISEASE WITH NEW TREE-IN-BUD IN NODULAR OPACITIES IN THE RIGHT UPPER AND RIGHT LOWER LOBES SUSPICIOUS FOR RECURRENT PNEUMONITIS/PNEUMONIA. Lumbar Puncture 03/04/18 11:26 IMPRESSION: Lumbar puncture under fluoroscopy. No immediate complication. Guidance Fluoroscopy 03/04/18 11:33 IMPRESSION: Please see combined report for performance of procedure and radiologic supervision and interpretation. Body Scan Nuclear Medicine 03/09/18 00:00 IMPRESSION: NORMAL BONE SCAN. Assessment & Plan - Diagnosis (1) HIV (human immunodeficiency virus infection) Is this a current diagnosis for this admission?: Yes (2) Head and neck cancer Is this a current diagnosis for this admission?: Yes (3) Atrial fibrillation Qualifiers: Atrial fibrillation type: paroxysmal Qualified Code(s): I48.0 - Paroxysmal atrial fibrillation Is this a current diagnosis for this admission?: Yes (4) Sepsis Qualifiers: Sepsis type: sepsis due to unspecified organism Qualified Code(s): A41.9 - Sepsis, unspecified organism Is this a current diagnosis for this admission?: Yes
[2018-03-12] MEDS: VALSARTAN 160 MG TABLET PO SCH (21:51)
--- NOTE | 2018-03-12 22:24 | Progress Note ---
Provider Note Provider Note: Palliative care follow up visit 03/12/18 In two attempts to see patient today, he was asleep both times. He looks very comfortable. Appreciate notes per Dr. Jin and nursing. Appears patient is feeling better and is stable to transfer back to SNF. Records show only a few doses of hydrocodone have been needed and no Robaxin. Hopefully patient will remain comfortable and headache will not return. Appreciate opportunity to participate in patients care. Non billable visit.
[2018-03-13] MEDS: NORMAL SALINE 1000 ML 1,000 ML IV PRN (02:13)
[2018-03-13] MEDS: METOPROLOL SUCCINATE 50 MG TAB.SR.24H PO SCH ×2 (05:37→17:19)
[2018-03-13] MEDS: HEPARIN SOD (PORCINE) 5,000 UNIT/ML 1 ML SYRINGE SUBCUT SCH ×2 (05:37→12:47)
[2018-03-13] MEDS: RITONAVIR 100 MG TABLET PO SCH (09:13)
[2018-03-13] MEDS: LEVETIRACETAM 500 MG TABLET PO SCH (09:13)
[2018-03-13] MEDS: ETRAVIRINE 200 MG PO SCH ×2 (09:13→17:19)
[2018-03-13] MEDS: DARUNAVIR 600 MG PO SCH ×2 (09:13→17:19)
[2018-03-13] MEDS: RALTEGRAVIR POTASSIUM 400 MG TABLET PO SCH (09:14)
[2018-03-13] MEDS: INSULIN LISPRO 100 UNIT/ML 3 ML VIAL SUBCUT PRN ×2 (12:47→17:21)
--- NOTE | 2018-03-13 16:21 | PDOC TRANSFER SUMMARY ---
General - Admit/Disc Date/PCP Admission Date/Primary Care Provider: 03/02/18 23:54 GE HOLMAN MD Discharge Date: 03/03/18 - Discharge Diagnosis (1) Sepsis Is this a current diagnosis for this admission?: Yes (2) HIV (human immunodeficiency virus infection) Is this a current diagnosis for this admission?: Yes (3) Head and neck cancer Is this a current diagnosis for this admission?: Yes (4) Atrial fibrillation Is this a current diagnosis for this admission?: Yes - Additional Information Home Medications: Acetaminophen [Tylenol 325 mg Tablet] 650 mg PEG Q6HP PRN 03/03/18 Amlodipine Besylate [Norvasc 10 mg Tablet] 10 mg PO DAILY 03/03/18 Atorvastatin Calcium [Lipitor 10 mg Tablet] 10 mg PO QHS 03/03/18 Insulin Lispro [Humalog Insulin (Lispro) 100 unit/mL] 0 units SQ .PERSLIDINGSCALE 03/03/18 Levetiracetam [Keppra 500 mg Tablet] 500 mg PO Q12 03/03/18 Linagliptin [Tradjenta] 5 mg PO DAILY 03/03/18 Metoprolol Succinate [Toprol XL 100 mg Tablet] 150 mg PO DAILY 03/03/18 Nystatin/Dexameth/Diphen [Magic Mouthwash] 5 ml PO Q4HP PRN 03/03/18 Ondansetron HCl [Zofran 8 mg Tablet] 8 mg PO Q8HP PRN 03/03/18 Paroxetine HCl [Paxil 20 mg Tablet] 20 mg PO DAILY 03/03/18 Raltegravir Potassium [Isentress 400 mg Tablet] 400 mg PO Q12 03/03/18 Ritonavir [Norvir 100 mg Tablet] 100 mg PO DAILY 03/03/18 Valsartan [Diovan] 320 mg PO QHS 03/03/18 Zinc Oxide [Zinc Oxide 20% Ointment 28.35 gm] 1 applic TOP DAILYP PRN 03/03/18 Darunavir Ethanolate [Prezista] 600 mg PO BID 03/06/18 Etravirine [Intelence] 200 mg PO BID 03/06/18 History of Present Illness Admission Date/PCP: 03/02/18 23:54 GE HOLMAN MD History of Present Illness: RAE SIM is a 57 year old male was just discharged from this hospital on 2017 after prolonged hospitalization for septic shock due to Enterococcus faecalis septicemia associated with Pneumonia ,at that time he was treated with intravenous ampicillin, vancomycin, cefepime he also had Clostridium difficile colitis requiring Flagyl. The last time he was admitted he had encephalopathy which was due to multiple factors including hyponatremia, sepsis, hypercalcemia , he has hypercalcemia of malignancy this was corrected with pamidronate. The last time he was admitted, he improved before was [facility] to [facility] care. He came to the emergency room last night for evaluation of altered mental status and chest pain,Part of the evaluation included a CTA chest, the CTA chest showed interval improvement of multifocal airspace disease with the new tree-in-bud and nodular opacities involving the right upper lobe and superior segment of the right lower lobe suspicious for recurrent pneumonitis no pleural effusion or pneumothorax. In the emergency room lumbar puncture was attempted but it was not successful the emergency room physician called me to advise me that the lumbar puncture return was purulent suggesting that he may have meningitis though there was no CSF fluid that was collected for analysis,on the basis of this suspicion patient was started on intravenous Decadron, Rocephin, vancomycin and ampicillin empirically to cover potential pathogens including listeria species. Dexamethasone is recommended for suspected or confirmed bacterial meningitis to be used, 0.1 mg/kg body weight IV every 6 hours for 4 days I am not overly convinced that he has meningitis, the last time he was admitted which was recently he was treated for prolonged period of time with IV antibiotic including vancomycin cefepime ampicillin, typically the duration of treatment for meningitis is 10-14 days at the most 21 days and this patient was hospitalized for over 3 weeks the last time he was in the hospital. He will empirically be treated for presumptive meningitis, a fluoroscopy guided lumbar puncture will be obtained today to clarify if he has meningitis . Hospital Course Hospital Course: Patient 57-year-old was admitted when he presented with altered mental status, stuporous, it was felt initially that he may have meningitis, was empirically treated with IV antibiotic to cover for meningitis, he was also empirically treated with Decadron because meningitis was suspected for 4 days, see my H&P for details. Ultimately lumbar puncture was done and meningitis was ruled out as a potential cause of the sepsis. The cause of the sepsis is not clear he was treated successfully with IV antibiotic with resolution of symptoms. He also had paroxysmal atrial fibrillation with rapid ventricular response he required temporarily IV Cardizem and he converted to sinus rhythm. 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 Physical Exam Vital Signs: Temp Pulse Resp BP Pulse Ox 98.5 F 90 17 138/78 H 100 03/13/18 11:50 03/13/18 14:00 03/13/18 11:50 03/13/18 11:50 03/13/18 11:50 Intake & Output 03/12/18 03/13/18 03/14/18 06:59 06:59 06:59 Intake Total 4357 3565 800 Output Total 3225 2700 400 Balance 1132 865 400 Weight 51.6 kg 50.2 kg General appearance: PRESENT: no acute distress Eye exam: PRESENT: PERRLA Respiratory exam: PRESENT: clear to auscultation melba Cardiovascular exam: PRESENT: +S1, +S2 GI/Abdominal exam: PRESENT: soft Neurological exam: PRESENT: alert Results Laboratory Results: 03/12/18 06:30 03/12/18 06:30 03/04/18 12:23 Cerebral Spinal Fluid - Csf Viral Culture - Final Impressions: Chest X-Ray 03/02/18 19:43 IMPRESSION: NO ACUTE RADIOGRAPHIC FINDING IN THE CHEST. NO SIGNIFICANT CHANGE FROM PRIOR STUDY. Chest/Abdomen CTA 03/02/18 20:35 IMPRESSION: UNREMARKABLE CTA CHEST WITHOUT PULMONARY EMBOLI. INTERVAL IMPROVEMENT OF PREVIOUSLY IDENTIFIED MULTIFOCAL AIRSPACE DISEASE WITH NEW TREE-IN-BUD IN NODULAR OPACITIES IN THE RIGHT UPPER AND RIGHT LOWER LOBES SUSPICIOUS FOR RECURRENT PNEUMONITIS/PNEUMONIA. Lumbar Puncture 03/04/18 11:26 IMPRESSION: Lumbar puncture under fluoroscopy. No immediate complication. Guidance Fluoroscopy 03/04/18 11:33 IMPRESSION: Please see combined report for performance of procedure and radiologic supervision and interpretation. Body Scan Nuclear Medicine 03/09/18 00:00 IMPRESSION: NORMAL BONE SCAN. Qualifiers - * [place] BEING DISCHARGED WITH ANY OF THE FOLLOWING DIAGNOSIS?: No
[2018-03-13 16:27] VITALS: BP 147/79
[2018-03-13] MEDS: NICOTINE 21 MG/24 HR PATCH.TD24 TD SCH (17:19)
== END 2018-03-13 19:13 | DRG 974 ==
LOC: ER 19:33 → EH 23:54 → 3N 03-03 05:31
PROVIDERS: ADMIT Internal Medicine; ATTEND Internal Medicine
PROC: 009U3ZX Drainage of Spinal Canal, Percutaneous Approach, Diagnostic (ICD-10-PCS; principal; 2018-03-02)
PROC: 00JU3ZZ Inspection of Spinal Canal, Percutaneous Approach (ICD-10-PCS; 2018-03-03)
PROC: B01BZZZ Fluoroscopy of Spinal Cord (ICD-10-PCS; 2018-03-03)
PROC: 009U3ZX Drainage of Spinal Canal, Percutaneous Approach, Diagnostic (ICD-10-PCS; 2018-03-04)
PROC: B01BZZZ Fluoroscopy of Spinal Cord (ICD-10-PCS; 2018-03-04)
DX: B20 Human immunodeficiency virus [HIV] disease (principal); A41.9 Sepsis, unspecified organism; J69.0 Pneumonitis due to inhalation of food and vomit; N17.9 Acute kidney failure, unspecified; Z68.1 Body mass index [BMI] 19.9 or less, adult; I48.0 Paroxysmal atrial fibrillation; E11.9 Type 2 diabetes mellitus without complications; R33.9 Retention of urine, unspecified; R62.7 Adult failure to thrive; C76.0 Malignant neoplasm of head, face and neck; D64.9 Anemia, unspecified; R07.9 Chest pain, unspecified; B19.20 Unspecified viral hepatitis C without hepatic coma; R41.82 Altered mental status, unspecified; I25.10 Atherosclerotic heart disease of native coronary artery without angina pectoris; E78.00 Pure hypercholesterolemia, unspecified; I10 Essential (primary) hypertension; R63.4 Abnormal weight loss; Z95.5 Presence of coronary angioplasty implant and graft; Z93.1 Gastrostomy status; Z79.4 Long term (current) use of insulin; Z79.899 Other long term (current) drug therapy
CPT/HCPCS: 36415; 36591; 62270; 71045; 71275; 77002; 78306; 80048; 80053; 80202; 81001; 82550; 82803; 82945; 82962; 83605; 83615; 84157; 84484; 85025; 85610; 87015; 87040; 87070; 87086; 87116; 87205; 87206; 87210; 87252; 87493; 89050; 93005; 93010; 96365; 96367; 99291; A9561; G8996-GN; G8997-GN; G8998-GN; J0285; J0290; J0696; J1100; J1200; J1644; J1815; J2930; J3370; J3480; J3490; J7030; J7060; Q9969

== ENCOUNTER 2018-03-18 22:16 | Emergency (ER) | payer MEDICARE, MEDICAID ==
[2018-03-18] MEDS ORDERED: NORMAL SALINE 1000 ML 1,000 ML IV ONE (23:09)
--- NOTE | 2018-03-18 23:19 | ER Document Report ---
ED General - General Chief Complaint: Low Blood Sugar Stated Complaint: DIABETIC ISSUES Time Seen by Provider: 03/18/18 22:34 Notes: Patient is a 57-year-old male with a past medical history of HIV, neck cancer, recurrent sepsis, who presents with hypoglycemia and lethargy. Apparently the patient was noted to have hyperglycemia at the nursing facility, was given an unclear amount of insulin and later noted to have severe hypoglycemia. He was also quite confused and lethargic in this context. Glucagon was given to the patient and he was subsequently transferred to the emergency department. On arrival the patient denies any acute complaints. He is disoriented at baseline and is unable to provide any significant or meaningful history. EMS states that the fpc reports that this is his baseline. Patient denies any abdominal pain, chest pain, shortness of breath, headache or neck pain. TRAVEL OUTSIDE OF THE [place] IN LAST 30 DAYS: No - Related Data Allergies/Adverse Reactions: No Known Drug Allergies Allergy (Verified 11/08/17 12:12) olive extract [[place]] Allergy (Verified 11/08/17 12:10) Shortness of Breath Past Medical History - General Information source: Patient, Transfer Record, [facility] Records - Social History Smoking Status: Current Every Day Smoker Frequency of alcohol use: None Drug Abuse: None Lives with: Long-Term Family History: Reviewed & Not Pertinent Patient has suicidal ideation: No Patient has homicidal ideation: No - Past Medical History Cardiac Medical History: Reports: Hx Atrial Fibrillation, Hx Coronary Artery Disease, Hx Hypercholesterolemia, Hx Hypertension Denies: Hx Heart Attack Pulmonary Medical History: Reports: Hx COPD, Hx Pneumonia Denies: Hx Asthma, Hx Bronchitis, Hx Tuberculosis Neurological Medical History: Reports: Hx Seizures - LAST ONE 3 WEEKS . Denies : Hx Cerebrovascular Accident Endocrine Medical History: Reports: Hx Diabetes Mellitus Type 2 Renal/ Medical History: Denies: Hx Peritoneal Dialysis GI Medical History: Reports: Hx Hepatitis - HEP C,HIV+. Denies: Hx Hiatal Hernia, Hx Ulcer Musculoskeltal Medical History: Reports Hx Arthritis Psychiatric Medical History: Denies: Hx Depression Infectious Medical History: Reports: Hx C-Diff, Hx Hepatitis - HEP C,HIV+, Hx HIV, Hx VRE Past Surgical History: Reports: Hx Cardiac Catheterization, Hx Cardiac Surgery - stent placement, Hx Coronary Stent, Hx Orthopedic Surgery - lumbar surgery, Other - peg. Denies: Hx Open Heart Surgery, Hx Pacemaker - Immunizations Hx Diphtheria, Pertussis, Tetanus Vaccination: Yes - one year per pt. Review of Systems - Review of Systems Notes: Constitutional: Negative for fever. HENT: Negative for sore throat. Eyes: Negative for visual changes. Cardiovascular: Negative for chest pain. Respiratory: Negative for shortness of breath. Gastrointestinal: Negative for abdominal pain, vomiting or diarrhea. Genitourinary: Negative for dysuria. Musculoskeletal: Negative for back pain. Skin: Negative for rash. Neurological: Negative for headaches, weakness or numbness. 10 point ROS negative except as marked above and in HPI. Physical Exam - Vital signs Interpretation: Normal Notes: PHYSICAL EXAMINATION: GENERAL: Appears much older than stated age. Cachectic, but no acute distress. Pleasant on contact. HEAD: Atraumatic, normocephalic. EYES: Pupils equal round and reactive to light, extraocular movements intact, sclera anicteric, conjunctiva are normal. ENT: nares patent, oropharynx clear without exudates. Moderately dry mucous membranes. NECK: Normal range of motion, supple without lymphadenopathy LUNGS: Breath sounds clear to auscultation bilaterally and equal. No wheezes rales or rhonchi. HEART: Regular rate and rhythm without murmurs ABDOMEN: Soft, nontender, normoactive bowel sounds. No guarding, no rebound. No masses appreciated. EXTREMITIES: Contracted bilateral lower extremities. NEUROLOGICAL: No focal neurological deficits. PSYCH: Somewhat lethargic, alert, oriented to person and place. SKIN: Warm, Dry, normal turgor, no rashes or lesions noted. Course - Re-evaluation Re-evalutation: 03/18/18 23:18 Patient presents for hypoglycemia after apparently he was given an unclear amount of insulin by his nursing facility for hypoglycemia. His blood sugar dropped into the low 20s and apparently was unresponsive. He was given glucagon and then transferred to the emergency department. His blood sugars did improve as did his mental status. During his time here in the emergency room and the patient did begin to drop his blood pressure although does not appear to be affected by this hypotension. He is smiling, asking for coffee when I talked to him. Physical examination shows obvious cachexia. Patient has a history of HIV AIDS with associated recurrent sepsis. He does not however have fever or tachycardia. No obvious sources of infection although his Osman catheter does have cloudy urine. Will therefore change out the Osman catheter to obtain an appropriate urine specimen, provide IV fluids and reassess the patient. 03/19/18 00:33 Patient's hypotension is completely resolved. His blood pressures, 124 on 74. However CMP does show recurrent hypoglycemia. I suspect that this is from the large dose of insulin was given to him earlier today. We will give 50 g of IV dextrose and provide him a meal tray. Patient's hemoglobin is noted to be low at 7.9 although review of his prior hospitalization showed anemia and that he is often had a hemoglobin in the low eights upper sevens. Therefore do not suspect an acute bleeding source today. Awaiting urinalysis results and then will plan for discharge. 03/19/18 02:38 Patient has tolerated a meal without any difficulty. The Osman catheter was replaced and the urine was drawn off the new Osman catheter does show findings consistent with a recurrent urinary tract infection. A urine culture has been sent and the patient will be started on cephalexin for E. coli coverage. Patient has not had any recurrent hypoglycemia. At this time will discharge with return precautions and follow-up recommendations. Verbal discharge instructions given a the bedside and opportunity for questions given. Medication warnings reviewed. Patient is in agreement with this plan and has verbalized understanding of return precautions and the need for primary care follow-up in the next 24-72 hours. - Laboratory Result Diagrams: 03/18/18 23:05 03/18/18 23:05 Laboratory results interpreted by me: 03/18/18 03/18/18 03/19/18 23:05 23:05 02:06 RBC 2.44 L Hgb 7.9 L Hct 23.8 L RDW 20.4 H Seg Neutrophils % 89.3 H Lymphocytes % 5.1 L Absolute Neutrophils 9.3 H Potassium 3.4 L Chloride 109 H Carbon Dioxide 15 L Glucose 34 L* Direct Bilirubin 0.5 H Albumin 3.0 L Urine Protein 30 H Urine Glucose (UA) >=500 H Urine Blood MODERATE H Urine Nitrite POSITIVE H Ur Leukocyte Esterase LARGE H Discharge - Discharge Clinical Impression: HIV (human immunodeficiency virus infection) Hypotension Qualifiers: Hypotension type: unspecified hypotension type Qualified Code(s): I95.9 - Hypotension, unspecified Anemia Qualifiers: Anemia type: unspecified type Qualified Code(s): D64.9 - Anemia, unspecified Catheter-associated urinary tract infection Qualifiers: Indwelling urinary catheter type: indwelling urethral catheter Encounter type: initial encounter Qualified Code(s): T83.511A - Infection and inflammatory reaction due to indwelling urethral catheter, initial encounter; N39.0 - Urinary tract infection, site not specified; N39.0 - Urinary tract infection, site not specified Condition: Fair Disposition: HOME-SNF (ED ONLY) Additional Instructions: You were seen today for low blood sugar likely from receiving too much insulin. You have a urinary tract infection and are being placed on antibiotics. Return if you develop fever, persistent vomiting, or any symptoms that are worrisome to you. Prescriptions: Cephalexin Monohydrate [Keflex 500 mg Capsule] 500 mg PO Q6H 7 Days capsule Referrals: GE HOLMAN MD [Primary Care Provider] - Follow up as needed
[2018-03-18 23:44] LABS: ALANINE AMINOTRANSFERASE 56 U/L (21-72); ALKALINE PHOSPHATASE 89 U/L (38-126); ANION GAP 14 (5-19); ASPARTATE AMINO TRANSFERASE 43 U/L (17-59); BILIRUBIN,DIRECT 0.5 mg/dL (0.0-0.4); BILIRUBIN,TOTAL 0.5 mg/dL (0.2-1.3); BLOOD UREA NITROGEN 11 mg/dL (7-20); CALCIUM 8.7 mg/dL (8.4-10.2); CARBON DIOXIDE 15 mmol/L (22-30); CHLORIDE 109 mmol/L (98-107); POTASSIUM 3.4 mmol/L (3.6-5.0); SODIUM 137.7 mmol/L (137-145); TOTAL PROTEIN 6.4 g/dL (6.3-8.2)
[2018-03-18 23:45] LABS: ABSOLUTE LYMPHOCYTES (AUTO) 0.5 10^3/uL (0.5-4.7); ABSOLUTE MONOCYTES (AUTO) 0.5 10^3/uL (0.1-1.4); ABSOLUTE NEUT (AUTO) 9.3 10^3/uL (1.7-8.2); BASOPHILS % (AUTO) 0.2 % (0-2); EOSINOPHILS % (AUTO) 0.3 % (0-6); HEMATOCRIT 23.8 % (37.9-51.0); LYMPHOCYTES % (AUTO) 5.1 % (13-45); MEAN CORPUSCULAR HEMOGLOBIN 32.4 pg (27.0-33.4); MEAN CORPUSCULAR HGB CONC 33.2 g/dL (32.0-36.0); MEAN CORPUSCULAR VOLUME 97 fl (80-97); MONOCYTES % (AUTO) 5.1 % (3-13); PLATELET COUNT 161 10^3/uL (150-450); RED BLOOD COUNT 2.44 10^6/uL (4.35-5.55); RED CELL DISTRIBUTION WIDTH 20.4 % (11.5-14.0); SEGMENTED NEUTROPHILS % (AUTO) 89.3 % (42-78); TOTAL CELLS COUNTED % (AUTO) 100 %; WHITE BLOOD COUNT 10.4 10^3/uL (4.0-10.5)
[2018-03-18 23:48] LABS: HEMOGLOBIN 7.9 g/dL (13.5-17.0)
[2018-03-18 23:58] LABS: GLUCOSE 34 mg/dL (75-110)
[2018-03-19] MEDS ORDERED: DEXTROSE 50%-WATER 25 GM/50 ML DISP.SYRIN IV ONE (00:31)
[2018-03-19 02:29] LABS: AMORPHOUS SEDIMENT,URINE TRACE /HPF; APPEARANCE,URINE TURBID; BILIRUBIN,URINE NEGATIVE (NEGATIVE); COLOR,URINE YELLOW; GLUCOSE, URINE >=500 mg/dL (NEGATIVE); KETONES,URINE NEGATIVE (NEGATIVE); LEUKOCYTE ESTERASE,URINE LARGE (NEGATIVE); NITRITE,URINE POSITIVE (NEGATIVE); PROTEIN,URINE 30 mg/dL (NEGATIVE); URINE SPECIFIC GRAVITY 1.006; UROBILINOGEN,URINE NEGATIVE mg/dL (<2.0)
[2018-03-19] MEDS ORDERED: CEPHALEXIN 500 MG CAPSULE PO ONE (02:38)
[2018-03-19 05:18] VITALS: BP 118/87
== END 2018-03-19 04:30 ==
LOC: ER 22:16
DX: T83.511A Infection and inflammatory reaction due to indwelling urethral catheter, initial encounter (principal); N39.0 Urinary tract infection, site not specified; B20 Human immunodeficiency virus [HIV] disease; I95.9 Hypotension, unspecified; D64.9 Anemia, unspecified; E11.65 Type 2 diabetes mellitus with hyperglycemia; R53.83 Other fatigue; Z79.4 Long term (current) use of insulin; Z85.89 Personal history of malignant neoplasm of other organs and systems; F17.200 Nicotine dependence, unspecified, uncomplicated; I25.10 Atherosclerotic heart disease of native coronary artery without angina pectoris; I10 Essential (primary) hypertension; J44.9 Chronic obstructive pulmonary disease, unspecified
CPT/HCPCS: 99285; 51702; 36415; 87040; 87086; 82962; 85025; 87088; 80076; 80048; 81001; 84484; 87186; J7030

== ENCOUNTER 2018-04-01 22:49 | Observation (INO) | payer MEDICARE, MEDICAID ==
[2018-04-01] MEDS ORDERED: LIDOCAINE 2% INJ-PF (100 MG/5 ML) SYRINGE IV ONE (22:54)
[2018-04-01] MEDS ORDERED: DEXTROSE 50%-WATER 25 GM/50 ML DISP.SYRIN IV ONE ×2 (23:05→23:06)
[2018-04-01] MEDS ORDERED: NORMAL SALINE 1000 ML 1,000 ML IV ONE ×2 (23:06→23:08)
[2018-04-01] MEDS ORDERED: CEFEPIME 2 GM/D5W RTU 2 GM/50 ML RTUPB IV ONE (23:07)
[2018-04-01] MEDS ORDERED: VANCOMYCIN HCL INJ 1000 MG VIAL IV ONE (23:08)
--- NOTE | 2018-04-01 23:10 | ER Document Report ---
ED General - General Stated Complaint: UNRESPONSIVE Time Seen by Provider: 04/01/18 23:06 Cannot obtain history due to: Unstable vital signs, Altered mental status Notes: Patient is a 57-year-old male with a past medical history of HIV AIDS who presents by EMS for hypotension as well as hypoglycemia. He arrives from his nursing facility. No additional history is provided. TRAVEL OUTSIDE OF THE [place] IN LAST 30 DAYS: No - Related Data Allergies/Adverse Reactions: No Known Drug Allergies Allergy (Verified 04/02/18 00:22) olive extract [[place]] Allergy (Verified 04/02/18 00:22) Shortness of Breath Past Medical History - General Information source: Transfer Record, Emergency Med Personnel, [facility] Records Cannot obtain history due to: Unstable vital signs, Altered mental status - Social History Smoking Status: Unknown if Ever Smoked Frequency of alcohol use: None Drug Abuse: None Lives with: Residential Family History: Reviewed & Not Pertinent - Past Medical History Cardiac Medical History: Reports: Hx Atrial Fibrillation, Hx Coronary Artery Disease, Hx Hypercholesterolemia, Hx Hypertension Denies: Hx Heart Attack Pulmonary Medical History: Reports: Hx COPD, Hx Pneumonia Denies: Hx Asthma, Hx Bronchitis, Hx Tuberculosis Neurological Medical History: Reports: Hx Seizures - LAST ONE 3 WEEKS . Denies : Hx Cerebrovascular Accident Endocrine Medical History: Reports: Hx Diabetes Mellitus Type 2 Renal/ Medical History: Denies: Hx Peritoneal Dialysis GI Medical History: Reports: Hx Hepatitis - HEP C,HIV+. Denies: Hx Hiatal Hernia, Hx Ulcer Musculoskeltal Medical History: Reports Hx Arthritis Psychiatric Medical History: Denies: Hx Depression Infectious Medical History: Reports: Hx C-Diff, Hx Hepatitis - HEP C,HIV+, Hx HIV, Hx VRE Past Surgical History: Reports: Hx Cardiac Catheterization, Hx Cardiac Surgery - stent placement, Hx Coronary Stent, Hx Orthopedic Surgery - lumbar surgery, Other - peg. Denies: Hx Open Heart Surgery, Hx Pacemaker - Immunizations Hx Diphtheria, Pertussis, Tetanus Vaccination: Yes - one year per pt. Review of Systems - Review of Systems -: Yes ROS unobtainable due to patient's medical condition Physical Exam - Vital signs Vitals: Resp Pulse Ox 32 H 93 04/01/18 22:55 04/01/18 22:55 Interpretation: Hypotensive, Tachypneic Notes: PHYSICAL EXAMINATION: GENERAL: Appears to be actively dying. Cachectic and extremely emaciated HEAD: Atraumatic, normocephalic. EYES: Pupils sluggish bilaterally. Sclera anicteric, conjunctiva are normal. ENT: nares patent, poor dentition throughout, extremely dry mucous membranes. NECK: supple without lymphadenopathy LUNGS: Mild tachypnea. Rhonchorous breath sounds at the bases bilaterally HEART: Regular rate and rhythm without murmurs ABDOMEN: Soft, nontender, normoactive bowel sounds. No guarding, no rebound. No masses appreciated. : Osman catheter in place EXTREMITIES: Contracted extremities. NEUROLOGICAL: Moves all extremity spontaneously, does not follow commands PSYCH: Obtunded SKIN: Cool skin, poor skin turgor, abrasion along the buttocks bilaterally Course - Re-evaluation Re-evalutation: 04/01/18 23:09 Patient presents obtunded, minimally responsive, hypotensive with an unobtainable blood pressure at time of presentation as well as profound hypoglycemia with initial BGL of 50. Patient is known HIV AIDS patient, frequent to the emergency department for sepsis in the setting of infections. He was apparently being treated for a catheter associated urinary tract infection. He was recently hospitalized for possible bacterial meningitis. Since the patient arrived, we obtained initial access via a left humeral intraosseous line. His port was then accessed. 50 g of dextrose was pushed IV with improvement of his blood pressure as well as his hypoglycemia. His mental status however remained very lethargic. 2 L of IV fluids will be opened wide. Patient's Osman catheter was changed out and a repeat Osman catheter was placed with a temperature probe. Will send the urine sample from the new Osman catheter. Patient is critically ill, will require frequent reassessments and hospitalization. Continues to protect his airway at this time point there is no indication for emergent airway management at this time 04/01/18 23:33 Patient is continued to be somewhat lethargic although will state his name and follow commands in all 4 extremities at this time. His blood pressure has normalized. Temp with a core Osman temperature is 98.2. Heart rate 82. Repeat BGL 132. Will continue to reassess frequently. 04/01/18 23:59 Patient's laboratories show anemia of chronic disease, hemoglobin of 7.6 minimally changed from 7.9 approximately 1 month ago. Patient does however have acute renal failure which is not a baseline for him with creatinine of 4.83. His bicarb is also profoundly low this does suggest a significant picture of prerenal azotemia in the setting of significant dehydration. Awaiting urinalysis results. Lactate mildly elevated at 2.3. Absolute CD4 count on January 31, 2018 was 83. Broad-spectrum antibiotics have been initiated with cefepime and vancomycin. 04/02/18 00:24 Patient has not had any urinary output in 90 minutes despite infusing 1.5 L of fluid. Patient is beginning to drop his blood pressure down to the 70 systolic. His second full boluses being administered. Patient will be started norepinephrine if he does not have an appropriate response to fluid. We are establishing additional IV access in addition to the IO access as well as central port. 0030-given her continued limited access I attempted to establish central access to the left internal jugular vein. I was able to catheterize the vein easily but unable to successfully advance the guidewire as it continually meets resistance. I therefore advanced the angiocatheter over the finder needle and have established a single 16-gauge deep access in the left IJ. 04/02/18 01:25 I have discussed this case with Dr. Kwon who knows this patient very well. He informs me that the patient was never supposed to be transported to the emergency department this evening. That he had an extensive conversation with the patient's sister who is his power of workers compensation attorney earlier today and last evening and had agreed to hospice measures and comfort measures only. He states her night court magistrate came on at [facility] they transported to the patient to the emergency department as apparently they were unaware that he was now hospice and comfort measures status only. We have agreed to discontinue all curative measures including IV antibiotics at this time. We will begin appropriate analgesic care with initial dose of morphine 12 mg IV and then allow for 8 mg of morphine IV every hour as needed. He will be admitted to the hospital under comfort measures to the medical floor. 04/02/18 03:00 Patient is resting comfortably, no further distress or apparent agony - Vital Signs Vital signs: Temp Pulse Resp BP Pulse Ox 16 87/60 L 88 L 04/02/18 02:00 04/02/18 01:15 04/02/18 02:00 - Laboratory Result Diagrams: 04/01/18 23:00 04/02/18 00:04 Laboratory results interpreted by me: 04/01/18 04/01/18 04/01/18 22:53 23:00 23:00 RBC 2.37 L Hgb 7.6 L Hct 24.1 L MCV 102 H D MCHC 31.7 L RDW 19.2 H Plt Count 138 L Lymphocytes % 12.4 L Monocytes % 13.1 H VBG pH VBG pCO2 VBG HCO3 Sodium 134.7 L Chloride 109 H Carbon Dioxide 7 L* BUN 34 H Creatinine 4.86 H Est GFR ( Amer) 15 L Est GFR (Non-Af Amer) 12 L Glucose POC Glucose 50 L Lactic Acid Calcium 8.2 L Total Protein 5.5 L Albumin 2.5 L 04/01/18 04/01/18 04/01/18 23:00 23:00 23:10 RBC Hgb Hct MCV MCHC RDW Plt Count Lymphocytes % Monocytes % VBG pH 7.23 L VBG pCO2 24.3 L VBG HCO3 10.0 L Sodium Chloride Carbon Dioxide BUN Creatinine Est GFR ( Amer) Est GFR (Non-Af Amer) Glucose POC Glucose 135 H Lactic Acid 2.3 H Calcium Total Protein Albumin 04/02/18 00:04 RBC Hgb Hct MCV MCHC RDW Plt Count Lymphocytes % Monocytes % VBG pH VBG pCO2 VBG HCO3 Sodium Chloride Carbon Dioxide BUN Creatinine Est GFR ( Amer) Est GFR (Non-Af Amer) Glucose 283 H POC Glucose Lactic Acid Calcium Total Protein Albumin - Diagnostic Test Radiology reviewed: Image reviewed, Reports reviewed Radiology results interpreted by me: 04/02/18 00:25 Chest x-ray: No acute infiltrate or pneumothorax Critical Care Note - Critical Care Note Total time excluding time spent on procedures (mins): 76 Comments: Critical care time spent obtaining history from patient or surrogate, discussions with consultants, development of treatment plan with patient or surrogate, evaluation of patient's response to treatment, examination of patient , ordering and performing treatments and interventions, ordering and review of laboratory studies, re-evaluation of patient's condition, ordering and review of radiographic studies and review of old charts Discharge - Discharge Clinical Impression: Septic shock, Anemia of chronic disease, AIDS, Anuria, Hypoglycemia associated with diabetes Acute renal failure Qualifiers: Acute renal failure type: unspecified Qualified Code(s): N17.9 - Acute kidney failure, unspecified Condition: Critical Disposition: ADMITTED INPATIENT Admitting Provider: [facility] [place] [facility] Admitted: Medical Floor
[2018-04-01 23:19] LABS: VENOUS BLOOD PCO2 24.3 mmHg (35-63); VENOUS BLOOD PH 7.23 (7.30-7.42)
[2018-04-01 23:24] LABS: ABSOLUTE LYMPHOCYTES (AUTO) 1.2 10^3/uL (0.5-4.7); ABSOLUTE MONOCYTES (AUTO) 1.3 10^3/uL (0.1-1.4); ABSOLUTE NEUT (AUTO) 7.3 10^3/uL (1.7-8.2); BASOPHILS % (AUTO) 0.2 % (0-2); EOSINOPHILS % (AUTO) 0.1 % (0-6); HEMATOCRIT 24.1 % (37.9-51.0); LYMPHOCYTES % (AUTO) 12.4 % (13-45); MEAN CORPUSCULAR HEMOGLOBIN 32.2 pg (27.0-33.4); MEAN CORPUSCULAR HGB CONC 31.7 g/dL (32.0-36.0); MONOCYTES % (AUTO) 13.1 % (3-13); PLATELET COUNT 138 10^3/uL (150-450); RED BLOOD COUNT 2.37 10^6/uL (4.35-5.55); RED CELL DISTRIBUTION WIDTH 19.2 % (11.5-14.0); SEGMENTED NEUTROPHILS % (AUTO) 74.2 % (42-78); TOTAL CELLS COUNTED % (AUTO) 100 %; WHITE BLOOD COUNT 9.8 10^3/uL (4.0-10.5)
[2018-04-01 23:35] LABS: HEMOGLOBIN 7.6 g/dL (13.5-17.0)
[2018-04-01 23:36] LABS: MEAN CORPUSCULAR VOLUME 102 fl (80-97)
[2018-04-01 23:39] LABS: ALANINE AMINOTRANSFERASE 26 U/L (21-72); ALBUMIN 2.5 g/dL (3.5-5.0); ALKALINE PHOSPHATASE 94 U/L (38-126); ANION GAP 19 (5-19); ASPARTATE AMINO TRANSFERASE 40 U/L (17-59); BILIRUBIN,DIRECT 0.4 mg/dL (0.0-0.4); BILIRUBIN,TOTAL 0.4 mg/dL (0.2-1.3); BLOOD UREA NITROGEN 34 mg/dL (7-20); CALCIUM 8.2 mg/dL (8.4-10.2); CHLORIDE 109 mmol/L (98-107); POTASSIUM 3.9 mmol/L (3.6-5.0); SODIUM 134.7 mmol/L (137-145); TOTAL PROTEIN 5.5 g/dL (6.3-8.2)
[2018-04-01 23:57] LABS: CARBON DIOXIDE 7 mmol/L (22-30)
--- NOTE | 2018-04-02 00:05 | RADIOLOGY REPORT (SQ) ---
EXAM DESCRIPTION: XR CHEST 1 VIEW CLINICAL HISTORY: 57 years Male, fever, cough COMPARISON: 4.13.18 NUMBER OF VIEWS/TECHNIQUE: 1/AP FINDINGS: Adequate lung volume, clear parenchyma, normal cardiac silhouette, right jugular miniport central line tip at the cavoatrial junction. And intact bony thorax. IMPRESSION: No acute cardiopulmonary findings.
[2018-04-02] MEDS: MORPHINE SULFATE 10 MG/ML INJ IV PRN ×5 (00:13→07:47)
[2018-04-02] MEDS ORDERED: DEXTROSE 5%-WATER 250 ML with NOREPINEPHRINE BITARTRATE 4 MG IV PRN ×2 (00:24)
[2018-04-02] MEDS ORDERED: NORMAL SALINE 1000 ML 1,000 ML IV ONE (00:24)
[2018-04-02] MEDS ORDERED: NOREPINEPHRINE BITARTRATE INJ/PF 4 MG/4 ML SDV IV ONE (00:54)
[2018-04-02] MEDS ORDERED: MORPHINE SULFATE 10 MG/ML INJ IV ONE (01:25)
[2018-04-02] MEDS ORDERED: MORPHINE SULFATE 10 MG/ML INJ ONE (01:28)
[2018-04-02] MEDS: HYDROMORPHONE HCL INJ/PF 2 MG/ML AMPULE IV PRN ×4 (02:29→08:25)
--- NOTE | 2018-04-02 06:07 | EKG REPORT ---
SEVERITY:- ABNORMAL ECG - SINUS RHYTHM NONSPECIFIC INTRAVENTRICULAR CONDUCTION DELAY MINIMAL ST DEPRESSION, INFERIOR LEADS : Confirmed by: Neel Burk MD 02-Apr-2018 06:07:19
[2018-04-02 09:14] VITALS: BP 61/36
--- NOTE | 2018-04-02 12:01 | Physician Advisory Note ---
Physician Advisor ProgressNote .: [facility], I have reviewed the medical record for this patient. Physician Advisor Statement: Reviewed prior to H&P available. Please consider documenting, if you agree: 1. "septic shock, suspect due to " (evidence documented by ED & nursing so far = ARF, obtunded mental status ( GCS 2/4 eye opening, 2/5 verbal response, best case total GSC 9/15 since he certainly wasn't obeying commands), systolic BP down to 70s even after 1.5L IVF boluses, VBG consistent with acute metabolic acidosis, lactate 2.3, persistent tachypnea, intermittent tachycardia in spite of metoprolol tx, recurrent hypotension w/MAP as low as 50s, hypothermia down to 96.1, hypoxemia down to 45 % on RA for EMS, pressors considered until found out pt Hospice) - ?"CAUTI, present on admission"? - ?"pneumonia, suspect gram-neg (or ), evidenced by tachypnea & Ac REsp Failure, rhonchi, ... - with initial CXR felt to be falsely negative because ___ " [intravascular depletion, immunocompromised & elderly, hyperinflation of COPD, portable film with poor inspiration, prior abx tx outpt recently for UTI, ...] 2. "Acute Hypoxemic Respiratory fAilure, evidenced by " (evidence documented by ED & nursing so far includes O2 sat 45% on RA for EMS, then 93% on 4L O2 in triage, decreased level of consciousness, dyspnea, tachypnea) 3. "Acute Renal Failure, baseline Cr 0.75" 4. "Acute hyponatremia, suspect due to ' 5. "severe anemia of chronic disease from AIDS" 6. "underweight with protein-calorie malnutrition [state mild, mod, or severe ] with BMI __, wt only 49.5kg, ____[?wt loss, ?appetite loss, ]" [if possible, give specifics on intake, wt loss, loss of SQ fat & muscle mass, diminished hand book or script editor strength, & clinical importance such as (A) nutritional assessment ordered, (B) modified diet or supplements ordered, (C) additional labs ordered, (D) prolonged wound healing time, (E) delayed infxn clearance] Status: Medicare pt, has been in hospital care for 1 MN already. Changed to comfort care at time of admission, requiring frequent PRN IV opioid tx for comfort. - If expected to within hours, appropriate to start in Obs status. - If pt is not expected to before MN tonight, appropriate for change to Inpatient status (& please document this expectation). - If he is expected to before MN, but lives past MN, appropriate for change (as of 00:00) to Inpatient status. Thanks! CK
--- NOTE | 2018-04-02 17:25 | PDOC H&P ---
History of Present Illness Admission Date/PCP: 04/02/18 01:41 GE HOLMAN MD History of Present Illness: RAE MONTEMAYOR is a 57 year old male, patient is well-known to me, he has multiple comorbid conditions, multiple hospitalization, he was transferred to the hospital moribund, I received a call from the group home staff yesterday regarding this patient's condition, he was anuric unresponsive and hypotensive with severe hypoglycemia, because patient condition was poor and the patient is unlikely to do well I spoke to the group home staff with the patient's POA on the conclusion was that he should be kept in the group home on there was no need for a transfer to the hospital the plan was that he should be comfort care/ hospice care before he . There was shift change in the group home, the nurses on night patrol inspector decided to transfer patient to the emergency room for evaluation, he was actively moribund actively dying in the emergency room he was evaluated I spoke to the emergency room physician the patient ought to be comfort care and active treatments should be discontinued. He was admitted to the hospital and this morning. Past Medical History Cardiac Medical History: Reports: Atrial Fibrillation, Coronary Artery Disease, Hyperlipidema, Hypertension Denies: Myocardial Infarction Pulmonary Medical History: Reports: Chronic Obstructive Pulmonary Disease (COPD) , Pneumonia Denies: Asthma, Bronchitis, Tuberculosis Neurological Medical History: Reports: Seizures - LAST ONE 3 WEEKS Endocrine Medical History: Reports: Diabetes Mellitus Type 2 GI Medical History: Reports: Hepatitis - HEP C,HIV+ Denies: Hiatal Hernia Musculoskeltal Medical History: Reports: Arthritis Psychiatric Medical History: Denies: Depression Hematology: Reports: Anemia Infectious Medical History: Reports: Clostridium Difficile, HIV, Vancomycin- Resistant Enterococci Past Surgical History Past Surgical History: Reports: Cardiac Catheterization, Coronary Stent, Orthopedic Surgery - lumbar surgery, Other - peg Denies: Pacemaker Social History Lives with: [facility] Smoking Status: Unknown if Ever Smoked Frequency of Alcohol Use: None Hx Recreational Drug Use: No - former drug user Drugs: None Hx Prescription Drug Abuse: No - Advance Directive Resuscitation Status: Do Not Resuscitate Family History Family History: Reviewed & Not Pertinent Parental Family History Reviewed: Yes Children Family History Reviewed: Yes Sibling(s) Family History Reviewed.: Yes Medication/Allergy Home Medications: Acetaminophen [Tylenol 325 mg Tablet] 650 mg PEG Q6HP PRN 03/03/18 Amlodipine Besylate [Norvasc 10 mg Tablet] 10 mg PO DAILY 03/03/18 Atorvastatin Calcium [Lipitor 10 mg Tablet] 10 mg PO QHS 03/03/18 Insulin Lispro [Humalog Insulin (Lispro) 100 unit/mL] 0 units SQ .PERSLIDINGSCALE 03/03/18 Levetiracetam [Keppra 500 mg Tablet] 500 mg PO Q12 03/03/18 Linagliptin [Tradjenta] 5 mg PO DAILY 03/03/18 Metoprolol Succinate [Toprol XL 100 mg Tablet] 150 mg PO DAILY 03/03/18 Nystatin/Dexameth/Diphen [Magic Mouthwash] 5 ml PO Q4HP PRN 03/03/18 Ondansetron HCl [Zofran 8 mg Tablet] 8 mg PO Q8HP PRN 03/03/18 Paroxetine HCl [Paxil 20 mg Tablet] 20 mg PO DAILY 03/03/18 Raltegravir Potassium [Isentress 400 mg Tablet] 400 mg PO Q12 03/03/18 Ritonavir [Norvir 100 mg Tablet] 100 mg PO DAILY 03/03/18 Valsartan [Diovan] 320 mg PO QHS 03/03/18 Zinc Oxide [Zinc Oxide 20% Ointment 28.35 gm] 1 applic TOP DAILYP PRN 03/03/18 Darunavir Ethanolate [Prezista] 600 mg PO BID 03/06/18 Etravirine [Intelence] 200 mg PO BID 03/06/18 Cephalexin Monohydrate [Keflex 500 mg Capsule] 500 mg PO Q6H 7 Days capsule Allergies/Adverse Reactions: No Known Drug Allergies Allergy (Verified 04/02/18 00:22) olive extract [[place]] Allergy (Verified 04/02/18 00:22) Shortness of Breath Physical Exam Vital Signs: Temp Pulse Resp BP Pulse Ox 72 8 L 61/36 L 88 L 04/02/18 09:09 04/02/18 09:09 04/02/18 09:09 04/02/18 02:00 Results Impressions: Chest X-Ray 04/01/18 23:08 IMPRESSION: No acute cardiopulmonary findings. Assessment & Plan - Diagnosis (1) Septic shock Is this a current diagnosis for this admission?: Yes
--- NOTE | 2018-04-02 17:31 | Death Summary ---
Summary Date : 04/02/18 Time of :: 11:40 Autopsy: No Resuscitation Status: Comfort Measures Only - Final Diagnosis (1) Septic shock Is this a current diagnosis for this admission?: Yes (3) Adult failure to thrive syndrome Is this a current diagnosis for this admission?: Yes (4) Anemia of chronic disease Is this a current diagnosis for this admission?: Yes (5) Anuria Is this a current diagnosis for this admission?: Yes (6) Atrial fibrillation Is this a current diagnosis for this admission?: Yes (7) Diabetes mellitus, type II Is this a current diagnosis for this admission?: Yes (8) HIV (human immunodeficiency virus infection) Is this a current diagnosis for this admission?: Yes (9) Hospital-acquired pneumonia Is this a current diagnosis for this admission?: Yes Hospital Course:: Patient was admitted moribund, and septic shock, he was comfort measures, virtually unresponsive, history unobtainable.
== END 2018-04-02 11:40 | disposition expired ==
LOC: ER 22:49 → EH 04-02 01:41 → INTOOBSV 04-02 01:41 → 4N 04-02 09:03
PROVIDERS: ADMIT Internal Medicine; ATTEND Internal Medicine
PROC: 05HN33Z Insertion of Infusion Device into Left Internal Jugular Vein, Percutaneous Approach (ICD-10-PCS; principal; 2018-04-02)
PROC: B544ZZA Ultrasonography of Left Jugular Veins, Guidance (ICD-10-PCS; 2018-04-02)
DX: A41.9 Sepsis, unspecified organism (principal); R65.21 Severe sepsis with septic shock; R62.7 Adult failure to thrive; D63.8 Anemia in other chronic diseases classified elsewhere; R34 Anuria and oliguria; E11.649 Type 2 diabetes mellitus with hypoglycemia without coma; B20 Human immunodeficiency virus [HIV] disease; J18.9 Pneumonia, unspecified organism; Y95 Nosocomial condition; I48.91 Unspecified atrial fibrillation; I25.10 Atherosclerotic heart disease of native coronary artery without angina pectoris; N17.9 Acute kidney failure, unspecified; S30.810A Abrasion of lower back and pelvis, initial encounter; X58.XXXA Exposure to other specified factors, initial encounter; Z86.19 Personal history of other infectious and parasitic diseases; Z95.5 Presence of coronary angioplasty implant and graft; Z66 Do not resuscitate; Z51.5 Encounter for palliative care; Z79.899 Other long term (current) drug therapy; Z79.4 Long term (current) use of insulin
CPT/HCPCS: 93005; 36591; 96376; 99291; 99292; 96361; 51702; 96375; 96365; 96368; 86900; 86901; 36415; 87040 ×2; 86850; 82962; 82947; 85025; 80053; 84484; 82803; 83605; 71045; 93010; 36558; 36556; 76937; G0378 ×2; C1751; C1769; J3490 ×2; J2001; J2270; J1170; J7060; J7030; J3370; J0692